=== PATIENT | female | born 2000 | race Caucasian/White ===

== ENCOUNTER 2023-11-20 16:54 | Emergency (ER) | payer OTHER, SELFPAY ==
[2023-11-20 16:59] VITALS: BP 145/87; PULSE 80; RESP 20; TEMP 36.6; O2SAT 100; BMI 32.3
--- NOTE | 2023-11-20 17:17 | ED_ITS ---
HPI - Skin/Abscess/Foreign Bdy General Chief complaint: Skin/Abscess/Foreign Body Stated complaint: RASH Time Seen by Provider: 11/20/23 16:59 Source: patient Mode of arrival: walk-in Limitations: no limitations History of Present Illness HPI narrative: Patient is a 23-year-old female who presents to the emergency department for a 2-week history of rash. She states she has noticed 2 separate areas to the scalp, above the right eyebrow, right denominational and above the right corner of the mouth. She states initially these lesions have drained pus/fluid and are now scabbed over, she states the lesion above the lip is resolving. She is not concerned for . No fevers or vomiting. She states her mother looked it up and told her it might be staph and she figured she should be on antibiotics. Related Data Previous Rx's Medication Instructions Recorded cephalexin 500 mg capsule 500 mg PO Q8H 7 days #21 caps 11/20/23 mupirocin 2 % topical ointment 1 applic topical BID #15 grams 11/20/23 sulfamethoxazole 800 1 tab PO BID 7 days #14 tabs 11/20/23 mg-trimethoprim 160 mg tablet (Bactrim DS) Allergies Allergy/AdvReac Type Severity Reaction Status Date / Time No Known Drug Allergies Allergy Verified 11/20/23 16:59 Review of Systems ROS Constitutional Denies: fever or chills Ears, nose, mouth, and throat Denies: throat pain or nasal congestion Cardiovascular Denies: chest pain Respiratory Denies: shortness of breath Gastrointestinal Denies: nausea or vomiting Integumentary/Breast Reports: rash Neurological Denies: headache Endocrine Denies: excessive urination Hematologic/Lymphatic Denies: easy bruising PFSH PFSH Social History Smoking status: Never smoker Exam Narrative Exam Narrative: Gen.: Awake, alert, in no distress Head: Normocephalic, atraumatic ENT: Moist mucous membranes Respiratory: No respiratory distress Extremities: Moves extremities equally Psych: Normal mood and affect Neuro: No focal neuro deficit Skin: Warm, dry, intact; 2 cm flat, scabbed, erythematous lesion above the right eyebrow with serous drainage centrally. Resolving erythematous lesion above the right lip. No crusting or drainage. 2 scabbed, crusted lesions in the scalp. Constitutional Vital Signs, click to edit/add: Last Vital Signs Temp 98 F 11/20/23 16:59 Pulse 80 11/20/23 16:59 Resp 20 11/20/23 16:59 BP 145/87 H 11/20/23 16:59 Pulse Ox 100 11/20/23 16:59 O2 Del Method Room Air 11/20/23 16:59 Course Vital Signs Vital signs: Vital Signs Temperature 98 F 11/20/23 16:59 Pulse Rate 80 11/20/23 16:59 Respiratory Rate 20 11/20/23 16:59 Blood Pressure 145/87 H 11/20/23 16:59 Pulse Oximetry 100 11/20/23 16:59 Oxygen Delivery Method Room Air 11/20/23 16:59 Temperature 98 F 11/20/23 16:59 Pulse Rate 80 11/20/23 16:59 Respiratory Rate 20 11/20/23 16:59 Blood Pressure 145/87 H 11/20/23 16:59 Pulse Oximetry 100 11/20/23 16:59 Oxygen Delivery Method Room Air 11/20/23 16:59 MDM - Skin/Abscess/Foreign Bdy MDM Narrative Medical decision making narrative: Exam is consistent with impetigo, patient placed on topical antibiotics, she is given Bactrim and Keflex for antibiotic coverage Medical Records Attestation: I reviewed the patient's medical records. Discharge Plan Discharge Chief Complaint: Skin/Abscess/Foreign Body Clinical Impression: Impetigo Patient Disposition: Home, Self-Care Time of Disposition Decision: 17:15 Condition: Good Prescriptions / Home Meds: New sulfamethoxazole-trimethoprim [Bactrim DS] 800-160 mg tablet 1 tab PO BID 7 Days Qty: 14 0RF cephalexin 500 mg capsule 500 mg PO Q8H 7 Days Qty: 21 0RF mupirocin 2 % ointment 1 applic topical BID Qty: 15 0RF Instructions: Impetigo (ED) Stand Alone Forms: Portal Instructions Referrals: ALEKSANDR SALAS APRN [Physician] - 1 week
== END 2023-11-20 17:35 | disposition home or self-care (01) ==
PROVIDERS: Emergency Provider Emergency Medicine
DX: L01.00 Impetigo, unspecified (principal)
CPT/HCPCS: 99283

== ENCOUNTER 2024-04-08 20:05 | Emergency (ER) | payer OTHER, SELFPAY ==
--- OUTSIDE RECORDS SUMMARY | 2024-04-08 20:13 | XMS_ITS | CCD ---
Author Organization [facility] Care Team Providers Care Medical Delivery Driver Name Role Phone Pcp, None Primary Care Provider UnavailBRENDAN Lerma Attending Unavailable BRENDAN PEREZ Referring Unavailable PCP, NONE Primary Care Unavailable BELLE OCHOA Attending Unavailable BELLE OCHOA Referring Unavailable PCP, NONE Primary Care Unavailable PCP, NONE Primary Care Unavailable CONCHITA CARRION Attending Unavailable CONCHITA CARRION Admitting Unavailable BELLE OCHOA Attending Unavailable BELLE OCHOA Referring Unavailable PCP, NONE Primary Care Unavailable BELLE OCHOA Admitting Unavailable Medications Current Medications Medication Drug Class(es) Dates Sig (Normalized) Sig (Original) acetaminophen 500 mg oral tablet (7 sources) Start: 03-24-2021 take 2 tablets by mouth every six hours as needed acetaminophen (TYLENOL) 500 MG tablet Take 2 tablets by mouth every 6 hours as needed. 30 tablet 0 03/24/2021 Active Start: 03-22-2021 acetaminophen (TYLENOL) tablet 1,000 mg acetaminophen 325 mg / HYDROcodone bitartrate 5 mg oral tablet (2 sources) Opioid Agonist Start: 08-14-2020 take 1 tablet by mouth every six hours as needed for pain hydrocodone-acetaminophen (NORCO) 5-325 MG Indications: Pain, dental , Jaw swelling Take 1 tablet by mouth every 6 hours as needed for Pain. 8 tablet 0 08/14/2020 Active Start: 08-14-2020 End: 08-14-2020 hydrocodone-acetaminophen (N ORCO) 5-325 MG home pack 1 packet aluminum hydroxide 40 mg/ml / magnesium hydroxide 40 mg/ml oral suspension (1 source) Start: 03-22-2021 aluminum-magnesium hydroxide 200-200 MG/5ML suspension 30 mL benzocaine 200 mg/ml / menthol 5 mg/ml topical spray (1 source) Standardized Chemical Allergen Start: 03-22-2021 benzocaine-menthol (DERMOPLAST) 20-0.5 % topical spray brompheniramine maleate 0.4 mg/ml / dextromethorphan hydrobromide 2 mg/ml / pseudoephedrine hydrochloride 6 mg/ml oral solution (3 sources) alpha-Adrenergic Agonist, Uncompetitive W-dozvkk-W-aspart ate Receptor Antagonist, Sigma-1 Agonist Start: 02-04-2022 take 10 mL by mouth four times daily as needed for cough pseudoephedrine-bromp heniramine-DM (BROMFED DM) 30-2-10 MG/5ML syrup Indications: URI with cough and congestion Take 10 mLs by mouth 4 times daily as needed for Cough or Congestion. 120 mL 0 02/04/2022 Active diphenhydrAMINE hydrochloride 25 mg oral capsule (1 source) Histamine-1 Receptor Antagonist Start: 03-22-2021 diphenhydrAMINE (BENADRYL) capsule 25 mg docusate sodium 100 mg oral capsule (8 sources) Start: 03-22-2021 take 1 capsule by mouth twice daily as needed for constipation docusate sodium 100 MG CAPS Take 100 mg by mouth 2 times daily as needed for Constipation. 30 capsule 1 03/24/2021 Active famotidine 20 mg oral tablet (1 source) Histamine-2 Receptor Antagonist Start: 03-22-2021 famotidine (PEPCID) tablet 20 mg hydrocortisone 25 mg/ml topical cream (1 source) Corticosteroid Start: 03-22-2021 Hydrocortisone (Perianal) 2.5 % rectal cream hydrocortisone acetate 25 mg/ml / pramoxine hydrochloride 10 mg/ml rectal cream (1 source) Corticosteroid Start: 03-22-2021 Hydrocort-Pramoxine (Perianal) (ANALPRAM-HC) rectal cream ibuprofen 800 mg oral tablet (7 sources) Nonsteroidal Anti-inflammatory Drug Start: 03-22-2021 take 1 tablet by mouth every eight hours as needed ibuprofen (ADVIL,MOTRIN) 800 MG tablet Take 1 tablet by mouth every 8 hours as needed. 30 tablet 1 03/24/2021 Active lanolin 0.5 mg/mg topical ointment (1 source) Start: 03-22-2021 Lanolin Hydrous ointment magnesium hydroxide 240 mg/ml oral suspension (1 source) Start: 03-22-2021 Magnesium Hydroxide (MOM) suspension (CONC) 10 mL naproxen 500 mg oral tablet (2 sources) Nonsteroidal Anti-inflammatory Drug Start: 08-14-2020 take 1 tablet by mouth twice daily as needed for pain naproxen (NAPROSYN) 500 MG tablet Take 1 tablet by mouth 2 times daily as needed for Pain. 15 tablet 0 08/14/2020 Active Start: 08-14-2020 End: 08-14-2020 naproxen (NAPROSYN) tablet 5 00 mg 2 ml ondansetron 2 mg/ml injection (9 sources) Serotonin-3 Receptor Antagonist Start: 03-22-2021 ondansetron hcl (ZOFRAN) injection 4 mg Start: 12-21-2020 End: 03-24-2021 Ondansetron (ZOFRAN-ODT) dis integrating tablet 4 mg oxyCODONE hydrochloride 5 mg oral tablet (1 source) Opioid Agonist Start: 03-22-2021 oxyCODONE (ROXICODONE) immediate release tablet 5-10 mg oxytocin 20 units in 1000mL LR - post (1 source) Start: 03-22-2021 oxytocin 20 un its in 1000mL LR - post penicillin v potassium 500 mg oral tablet (2 sources) Start: 08-14-2020 take 1 tablet by mouth four times daily penicillin v potassium (VEETID) 500 MG tablet Take 1 tablet by mouth 4 times daily. 39 tablet 0 08/14/2020 Active Start: 08-14-2020 End: 08-14-2020 penicillin v potassium (VEET ID) tablet 500 mg multivitamin 27-0.8 MG tablet 1 tablet (1 source) Start: 03-22-2021 multivitamin 27-0.8 MG tablet 1 tablet Vit-Fe Fumarate-FA ( VITAMIN PLUS LOW IRON) 27-1 MG TABS (14 sources) Start: 11-19-2020 take 1 tablet by mouth once daily Vit-Fe Fumarate-FA ( VITAMIN PLUS LOW IRON) 27-1 MG TABS Take 1 tablet by mouth daily. 30 tablet 0 11/19/2020 Active simethicone 80 mg chewable tablet (1 source) Start: 03-22-2021 simethicone (MYLICON) chewable tablet 80 mg zolpidem tartrate 5 mg oral tablet (1 source) gamma-Aminobuty yecenia Acid-ergic Agonist Start: 03-22-2021 zolpidem (AMBIEN) tablet 5 mg Completed/Discontinued Medications Medication Drug Class(es) Dates Sig (Normalized) Sig (Original) calcium chloride 0.0014 meq/ml / potassium chloride 0.004 meq/ml / sodium chloride 0.103 meq/ml / sodium lactate 0.028 meq/ml injectable solution (3 sources) Start: 03-22-2021 End: 03-22-2021 lactated ringers bolus solution 1,000 mL Problems Active Problems Problem Classification Problem Date Documented Da te Episodic/Chronic Disorders of teeth and jaw (1 source) Toothache; Translations: [Pain, dental] Episodic Nonmalignant breast conditions (1 source) Mastodynia; Translations: [Mastodynia] Episodic Other circulatory disease (1 source) Elevated blood pressure; Translations: [Elevated blood pressure reading] Episodic Other skin disorders (1 source) Facial swelling ; Translations: [Jaw swelling] Episodic Other upper respiratory infections (3 sources) Upper respiratory infection; Translations: [Acute upper respiratory infection, unspecified] Onset: 02-07-2023 Episodic Residual codes; unclassified (1 source) H/O: Disorder; Translations: [History of low potassium] Episodic Residual codes; unclassified (2 sources) Gestation period, 27 weeks; Translations: [27 weeks gestation of ] Episodic Residual codes; unclassified (1 source) Gestation period, 36 weeks; Translations: [36 weeks gestation of ] Episodic Substance-related disorders (1 source) Nicotine dependence, other tobacco product, uncomplicated; Translations: [Nicotine dependence, other tobacco product, uncomplicated] Onset: 02-07-2023 Chronic Past or Other Problems Problem Classification Problem Date Documented Date Episodic/Chronic Immunizations and screening for infectious disease (1 source) Encounter for screening for infections with a predominantly sexual mode of transmission; Translations: [Encounter for screening for infections with a predominantly sexual mode of transmission] Onset: 06-14-2022 Episodic Other complications of (17 sources) Late entry into care; Translations: [Supervision of with insufficient care, second trimester] Onset: 11-26-2020 Resolved: 05-12-2021 11-26-2020 Episodic Other complications of (15 sources) Chlamydia trachomatis infection in ; Translations: [Other infections with a predominantly sexual mode of transmission complicating , second trimester] Onset: 12-21-2020 12-21-2020 Episodic Other and delivery including normal (20 sources) Normal ; Translations: [Encounter for supervision of normal , unspecified, unspecified trimester] Onset: 11-26-2020 Resolved: 05-12-2021 11-26-2020 Episodic Results Test Name Value Interpretation Reference Range Facil ity STREP A MOLECULARon 02-08-20 23 STREP A MOLECULAR Negative Normal Negative [facility] Comment on above: Performed By: #### [id number] #### [place] [address] [place] Strep AOrdered By: Khloe Kaminski on 02-06-2023 Streptococcus.beta-hemo lytic Org specific cx Ql (Unsp spec) Negative Negative [facility] Streptococcus.beta-hemolytic Org specific cx Ql (Unsp spec)Ordered By: Khloe Kaminski on 02-06-2023 Interpretation and review of laboratory results Normal [facility] GCon 06-17-2022 CHLAMYDIA AMPLIFIED PROBE Negative Normal Negative [facility] Comment on above: Performed By: #### [id number] #### [place] [address] GC AMPLIFIED PROBE Negative Normal Negative [facility] Comment on above: Performed By: #### [id number] #### [place] [address] GCon 06-16-2022 CHLAMYDIA SOURCE ThinPrep Normal [facility] Comment on above: Performed By: #### [id number] #### [place] [address] GC SOURCE ThinPrep Normal [facility] Comment on above: Performed By: #### [id number] #### [place] [address] US Breast - left limitedon 0 10-15-2021 Normal examination. RECOMMENDATION: Clinical Follow-Up BI-RADS: ACR BI-RADS 1: Negative Dimas Calderon MD - 10/15/2021 CLINICAL HISTORY: Patient is a 21-year-old woman referred for sonographic evaluation of new onset focal left breast pain. History of breast cancer in her mother maternal aunt, ages unspecified. TECHNIQUE: Targeted left breast ultrasound. COMPARISON: None FINDINGS: Targeted left breast ultrasound performed at 3:00, 10 cm from the nipple at the site of focal pain. No suspicious solid or cystic mass or distortion is seen. No findings identified to account for the patient's pain. Normal examination. IMPRESSION: Normal examination. RECOMMENDATION: Clinical Follow-Up BI-RADS: ACR BI-RADS 1: Negative [facility] Radiology Study observation (narrative) [facility] US Breast - left limitedOrde red By: Dimas Patel on 10-15-2021 [facility] Work Phone: CBC without differentialOrde red By: Lexi Lewis on 03-23-2021 Erythrocyte distribution width (RBC) [Ratio] 13.9 % 11.5 - 14.5 % [facility] Hematocrit (Bld) [Volume fraction] 28.6 % Low 33.6 - 46.8 % [facility] Hemoglobin (Bld) [Mass/Vol] 9.1 g/dL Low 11.7 - 15.8 g/dL [facility] Interpretation and review of laboratory results Abnormal [facility] MCH (RBC) [Entitic mass] 28.4 pg 27.5 - 32.3 pg [facility] MCHC (RBC) [Mass/Vol] 31.8 g/dL 30.7 - 35.5 g/dl [facility] MCV (RBC) [Entitic vol] 89.4 fL 80.2 - 99.0 fL [facility] Platelets (Bld) [#/Vol] 196.0 10*3/uL [facility] RBC (Bld) [#/Vol] 3.20 10*6/uL Low [facility] WBC LM Ql (Sput) 11.3 High [facility] BUPRENORPHINE SCRN, UR, REFL EX QUANTOrdered By: Lexi Lewis on 03-22-2021 Buprenorphine Screen, UR Not detected CUTOFF <10 ng/mL [facility] Tox Message see below [facility] Comment on above: Notes: 1. SCREENING RESULTS SHOULD BE CONSIDERED PRESUMPTIVE UNLESS THE PRESENCE OF THE ANALYTE HAS BEEN CONFIRMED BY A REFERENCE LAB. 2. ALL DRUG GROUPS ARE ANALYZED ON URINE. [facility] CBCOrdered By: Lexi ambriz on 03-22-2021 Erythrocyte distribution width (RBC) [Ratio] 13.4 % 11.5 - 14.5 % [facility] Hematocrit (Bld) [Volume fraction] 35.4 % 33.6 - 46.8 % [facility] Hemoglobin (Bld) [Mass/Vol] 11.9 g/dL 11.7 - 15.8 g/dL [facility] Interpretation and review of laboratory results Abnormal [facility] MCH (RBC) [Entitic mass] 28.3 pg 27.5 - 32.3 pg [facility] MCHC (RBC) [Mass/Vol] 33.6 g/dL 30.7 - 35.5 g/dl [facility] MCV (RBC) [Entitic vol] 84.1 fL 80.2 - 99.0 fL [facility] Platelets (Bld) [#/Vol] 246.0 10*3/uL [facility] RBC (Bld) [#/Vol] 4.21 10*6/uL [facility] WBC LM Ql (Sput) 11.9 High [facility] Syphilis Treponema AntibodyO rdered By: Lexi Lewis on 03-22-2021 Syphilis Treponema Antibody Non-Reactive Nonreactive [facility] Toxicology screen, urineOrde red By: Lexi Lewis on 03-22-2021 Amphetamines Screen method >1000 ng/mL Ql (U) Not detected CUTOFF <1000 ng/mL [facility] Barbiturates Screen method >200 ng/mL Ql (U) Not detected CUTOFF <200 ng/mL [facility] Benzodiazepines Ql (U) Not detected CUTOF F <200 ng/mL [facility] Benzoylecgonine Screen (U) [Mass/Vol] Not detected CUTOFF <300 ng/mL [facility] Cannabinoids Screen method >50 ng/mL Ql (U) Not detected CUTOFF <50 ng/mL [facility] Fentanyl Not detected CUTOFF 1.0 ng/mL [facility] Opiates Screen (U) [Mass/Vol] Not detected CUTOFF <300 ng/mL [facility] Phencyclidine (U) [Mass/Vol] Not detected CUTOFF <25 ng/mL [facility] Tox Message see below [facility] Comment on above: Notes: 1. SCREENING RESULTS SHOULD BE CONSIDERED PRESUMPTIVE UNLESS THE PRESENCE OF THE ANALYTE HAS BEEN CONFIRMED BY A REFERENCE LAB. 2. ALL DRUG GROUPS ARE ANALYZED ON URINE. [facility] Type and ScreenOrdered By: Cristina Lewis on 03-22-2021 ABO and Rh group Nom (Bld) Blood group O Rh(D) positive [facility] Blood group antibody screen.cells I+II+III Ql Negative [facility] Fern test, vaginal fluidOrde red By: Stacy Alonso on 03-02-2021 Fern Test NONE SEEN NONE SEEN [facility] CBCon 01-05-2021 Erythrocyte distribution width (RBC) [Ratio] 13.4 % 11.5 - 14.5 % [facility] Hematocrit (Bld) [Volume fraction] 34.0 % 33.6 - 46.8 % [facility] Hemoglobin (Bld) [Mass/Vol] 11.2 g/dL Low 11.7 - 15.8 g/dL [facility] Interpretation and review of laboratory results Abnormal [facility] MCH (RBC) [Entitic mass] 29.2 pg 27.5 - 32.3 pg [facility] MCHC (RBC) [Mass/Vol] 32.9 g/dL 30.7 - 35.5 g/dl [facility] MCV (RBC) [Entitic vol] 88.8 fL 80.2 - 99 fL [facility] Platelets (Bld) [#/Vol] 244.0 10*3/uL [facility] RBC (Bld) [#/Vol] 3.83 10*6/uL [facility] WBC LM Ql (Sput) 10.9 High [facility] Glucose tolerance, 1 houron 01-05-2021 Glucose 1 Hr post 50 g glucose PO [Mass/Vol] 83 mg/dL [facility] Comment on above: REFERENCE-GLUCOSE 1 HR WITH DEXTROSE Values >140 mg/dL constitute a positive screen [facility] Syphilis Treponema Antibody (RPR)on 01-05-2021 Syphilis Treponema Antibody Nonreactive Nonreactive [facility] Comprehensive metabolic pane l aka [facility] 11-26-2020 Albumin [Mass/Vol] 3.7 g/dL 3.5 - 5 g/dL [facility] Alk Phos 78 U/L 24 - 126 U/L [facility] ALT [Catalytic activity/Vol] 12 U/L 4 - 35 U/L [facility] AST [Catalytic activity/Vol] 19 U/L 3 - 47 U/L [facility] Bilirubin [Mass/Vol] 0.6 mg/dL 0.2 - 1.6 mg/dL [facility] Calcium [Mass/Vol] 9.5 mg/dL 8.4 - 10. 4 mg/dL [facility] Chloride [Moles/Vol] 105 mmol/L 96 - 109 mmol/L [facility] CO2 [Moles/Vol] 21 mmol/L Low 22 - 30 mmol/L [facility] Comprehensive metabolic 2000 panel 0.46 mg/dL Low 0.52 - 1.04 mg/dL [facility] Glucose [Mass/Vol] 87 mg/dL 65 - 100 mg/dL [facility] Interpretation and review of laboratory results Abnormal [facility] Potassium [Moles/Vol] 4.2 mmol/L 3.6 - 5.1 mmol/L [facility] Protein [Mass/Vol] 6.8 g/dL 6.3 - 8.2 g/dL [facility] Sodium [Moles/Vol] 133 mmol/L Low 135 - 147 mmol/L [facility] Urea nitrogen [Mass/Vol] 7 mg/dL Low 8 - 20 mg/dL [facility] GLOMERULAR FILTRATION RATEon 11-26-2020 GFR/1.73 sq M.predicted MDRD (S/P/Bld) [Vol rate/Area] mL/min/{1.73_m2} [facility] Comment on above: To estimate the GFR for Americans, multiply the result provided by 1.21. Population mean GFR = 116 ml/min/1.73 sq.m. for ages 18-29 yrs. The MDRD is validated in individuals 18-70 years of age. It is less accurate in patients with extremes of muscle mass, restriction of dietary protein, ingestion of creatine, extra-renal metabolism of creatinine, or treatment with medications that affect renal tubular creatinine secretion. GFR Categories in Chronic Kidney Disease (CKD) Category: GFR(mL/min/1.73m^2) Interpretation: G1* 90 or greater Normal or high G2* 60-89 Mild decrease G3a 45-59 Mild to moderate decrease G3b 30-44 Moderate to severe decrease G4 15-29 Severe decrease G5 14 or less Kidney failure *G1&G2: In the absence of evidence of kidney damage, neither GFR category G1 nor G2 fulfill the criteria for CKD Kidney Int Suppl.2013;3:1-150 Hemoglobin A1con 11-26-2020 HbA1c (Bld) [Mass fraction] 4.3 % 0 - 6 % [facility] Comment on above: Reference Interval f or %A1c %A1c (NGSP) Interpretation <6.0% Non-Diabetic Range >6.5% Action Suggested . Hepatitis C antibodyon 11-26 HCV Ab Qn (S) Nonreactive Nonreactive [facility] LDH SERUMon 11-26-2020 LDH Pyruvate to lactate reaction [Catalytic activity/Vol] 513 U/L 308 - 626 U/L [facility] Otheron 11-26-2020 [facility] Type & Screen (must order with either panel)on 11-26-2020 ABO and Rh group Nom (Bld) O POS [facility] Blood group antibody screen.cells I+II+III Ql Negative [facility] Protein / creatinine ratio, urineon 11-26-2020 Protein (U) [Mass/Vol] 10 mg/dL 0 - 12 mg/dL [facility] Protein/Creatinine (U) [Mass ratio] 0.1 [facility] Ur Cre-Random 118.20 mg/dL NO NORMALS [facility] Uric acidon 11-26-2020 Urate [Mass/Vol] 3.0 mg/dL 2 - 7 mg/dL [facility] Vital Signs Date Time Vital Sign Value Performing Clinician Facility 02-07-2023 04:32-0400 Diastolic blood pressure 65 mm[Hg] Sazze DO Work Phone: [facility] 02-07-2023 04:32-0400 Heart rate 69 /min Sazze DO Work Phone: [facility] 02-07-2023 04:32-0400 Respiratory rate 18 /min Conchita Bomsta DO Work Phone: [facility] 02-07-2023 04:32-0400 SaO2% (BldA) [Mass fraction] 99 % Conchita Brownta Work Phone: [facility] 02-07-2023 04:32-0400 Systolic blood pressure 114 mm[Hg] Conchita Brownta DO Work Phone: [facility] 02-06-2023 23:14-0400 Body height 167.6 cm Conchita Brownta Work Phone: [facility] 02-06-2023 23:14-0400 Body mass index (BMI) [Ratio] 34.7 kg/m2 Conchita Brownta Work Phone: [facility] 02-06-2023 23:14-0400 Body temperature 98.91 [degF] Conchita Brownta Work Phone: [facility] 02-06-2023 23:14-0400 Body weight 97.52 kg Conchita Carrion DO Work Phone: [facility] 03-24-2021 08:00-0400 Body temperature 98.29 [degF] Lexi Lewis MD Work Phone: [facility] 03-24-2021 08:00-0400 Diastolic blood pressure 55 mm[Hg] Lexi Lewis MD Work Phone: [facility] 03-24-2021 08:00-0400 Heart rate 76 /min Lexi Lewis MD Work Phone: [facility] 03-24-2021 08:00-0400 Respiratory rate 16 /min Lexi Lewis MD Work Phone: [facility] 03-24-2021 08:00-0400 Systolic blood pressure 115 mm[Hg] Lexi Lewis MD Work Phone: [facility] 03-24-2021 04:00-0400 SaO2% (BldA) [Mass fraction] 97 % Lexi Lewis MD Work Phone: [facility] 03-21-2021 20:37-0400 Body height 167.6 cm Lexi Lewis MD Work Phone: [facility] 03-21-2021 20:37-0400 Body mass index (BMI) [Ratio] 39.71 kg/m2 Lexi Lewis MD Work Phone: [facility] 03-21-2021 20:37-0400 Body weight 111.58 kg Lexi Lewis MD Work Phone: [facility] 03-06-2021 21:50-0400 Diastolic blood pressure 57 mm[Hg] Stacy Alonso MD Work Phone: [facility] 03-06-2021 21:50-0400 Heart rate 77 /min Stacy Alonso MD Work Phone: [facility] 03-06-2021 21:50-0400 Systolic blood pressure 120 mm[Hg] Stacy Alonso MD Work Phone: [facility] 03-06-2021 20:50-0400 Body height 167.6 cm Stacy Alonso MD Work Phone: [facility] 03-06-2021 20:50-0400 Body mass index (BMI) [Ratio] 38.58 kg/m2 Stacy Alonso MD Work Phone: [phone] [address] 03-06-2021 20:50-0400 Body weight 108.41 kg Stacy Alonso MD Work Phone: [facility] 03-06-2021 20:50-0400 Respiratory rate 20 /min Stacy Alonso MD Work Phone: [facility] 03-06-2021 20:48-0400 Body temperature 98.01 [degF] Stacy Alonso MD Work Phone: [facility] 03-02-2021 02:04-0400 Diastolic blood pressure 69 mm[Hg] Stacy Alonso MD Work Phone: [facility] 03-02-2021 02:04-0400 Heart rate 88 /min Stacy Alonso MD Work Phone: [facility] 03-02-2021 02:04-0400 Systolic blood pressure 131 mm[Hg] Stacy Alonso MD Work Phone: [facility] 03-02-2021 01:37-0400 Body height 167.6 cm Stacy Alonso MD Work Phone: [facility] 03-02-2021 01:37-0400 Body mass index (BMI) [Ratio] 38.41 kg/m2 Stacy Alonso MD Work Phone: [phone] [address] 03-02-2021 01:37-0400 Body temperature 98.91 [degF] Stacy Alonso MD Work Phone: [phone] [address] 03-02-2021 01:37-0400 Body weight 107.96 kg Stacy Alonso MD Work Phone: [facility] 03-02-2021 01:37-0400 Respiratory rate 20 /min Stacy Alonso MD Work Phone: [facility] 02-03-2021 21:58-0400 Diastolic blood pressure 77 mm[Hg] Stacy Alonso MD Work Phone: [phone] [address] 02-03-2021 21:58-0400 Heart rate 91 /min Stacy Alonso MD Work Phone: [facility] 02-03-2021 21:58-0400 Respiratory rate 18 /min Stacy Alonso MD Work Phone: [facility] 02-03-2021 21:58-0400 Systolic blood pressure 128 mm[Hg] Stacy Alonso MD Work Phone: [facility] 08-14-2020 09:19-0500 Body Temperature 98.49 [degF] [facility] 08-14-2020 06:50-0500 BMI (Body Mass Index) 32.28 kg/m2 Aliya [facility] 08-14-2020 06:50-0500 Body weight 90.72 kg Aliya [facility] 08-14-2020 06:50-0500 BP Diastolic 74 mm[Hg] [facility] 08-14-2020 06:50-0500 BP Systolic 135 mm[Hg] [facility] 08-14-2020 06:50-0500 Height 167.6 cm Aliya [facility] 08-14-2020 06:50-0500 Pulse (Heart Rate) 82 /min [facility] 08-14-2020 06:50-0500 Pulse Oximetry 99 % Aliya Cao [facility] 08-14-2020 06:50-0500 Respiratory Rate 18 /min Aliya Cao [facility] System Encounters Encounter Date Encounter Type Care Provider Facility Start: 02-07-2023 End: 02-07-2023 Emergency department patient visit GLORIA [facility] Start: 02-07-2023 End: 02-07-2023 Emergency department patient visit Conchita Carrion DO Work Phone: [facility] Comment on above: Sore throat (Primary Dx) Start: 06-20-2022 ambulatory BRENDAN PEREZ [facility] Start: 06-14-2022 End: 06-14-2022 ambulatory BELLE [facility] Start: 06-14-2022 Encounter for gynecological examination (general) (routine) without abnormal findings [facility] Start: 06-14-2022 End: 06-15-2022 ambulatory BELLE [facility] Start: 02-06-2022 End: 02-06-2022 Subsequent hospital visit by physician Paulo Upton DO Work Phone: [facility] Start: 02-04-2022 End: 02-04-2022 Subsequent hospital visit by physician Kym Gutierrez APRN [employer] Work Phone: [facility] Comment on above: URI with cough and c ongestion Start: 10-15-2021 End: 10-15-2021 Subsequent hospital visit by physician Marianna Abbasi APRN, CNP Work Phone: [facility] Comment on above: Breast pain, left Start: 06-08-2021 End: 06-08-2021 Subsequent hospital visit by physician Job Fitzgerald MD Work Phone: [facility] Start: 03-21-2021 End: 03-24-2021 Evaluation and management of inpatient Lexi Lewis MD Work Phone: [facility] ([facility]) Comment on above: Encounter for induct ion of labor (Primary Dx) Start: 03-06-2021 End: 03-06-2021 Subsequent hospital visit by physician Stacy Alonso MD Work Phone: [facility] (2 [place]) Start: 03-02-2021 End: 03-02-2021 Subsequent hospital visit by physician Stacy Alonso MD Work Phone: [facility] (2 [place]) Start: 02-24-2021 End: 02-24-2021 Subsequent hospital visit by physician Nicole Rodarte DO Work Phone: [facility] Comment on above: 36 weeks gestation o f ; Chlamydia trachomatis infection in mother during second trimester of Start: 02-03-2021 End: 02-03-2021 Subsequent hospital visit by physician Stacy Alonso MD Work Phone: [facility] ([address] [place]) Start: 01-05-2021 End: 01-05-2021 Subsequent hospital visit by physician Nicole Rodarte Work Phone: [facility] Comment on above: 27 weeks gestation o f Start: 12-21-2020 End: 12-21-2020 Subsequent hospital visit by physician Nicole Rodarte Work Phone: [facility] Comment on above: 27 weeks gestation o f ; Chlamydia trachomatis infection in mother during second trimester of Start: 11-26-2020 End: 11-26-2020 Subsequent hospital visit by physician Nicole Rodarte Work Phone: [facility] Comment on above: Late care a ffecting in second trimester Start: 11-26-2020 End: 11-26-2020 Subsequent hospital visit by physician Nicole Rodarte Work Phone: [facility] Comment on above: Late care a ffecting in second trimester; History of low potassium; Elevated blood pressure reading Start: 08-14-2020 End: 08-14-2020 Emergency department patient visit Aliya Cao Work Phone: [facility] Comment on above: Pain, dental (Primar y Dx); Jaw swelling Procedures Date Procedure Procedure Detail Performing Clinician Start: 02-06-2023 Iadna streptococcus group a amplified probe tq Conchita Armida [employer] Work Phone: Start: 06-14-2022 Microscopic observat ion [Identifier] in Cervix by Cyto stain Conchita Sentiment Work Phone: Start: 10-15-2021 Us breast uni real t duane with image limited Marianna Abbasi APRN [employer] Work Phone: Start: 03-23-2021 Blood count complete automated Lexi Lewis MD Work Phone: Start: 03-22-2021 BUPRENORPHINE SCRN, UR, REFLEX QUANT Lexi Lewis MD Work Phone: Start: 03-22-2021 Drug tst prsmv instr mnt chem analyzers pr date Lexi Lewis MD Work Phone: Start: 03-22-2021 Antibody treponema pallidum Lexi Lewis MD Work Phone: Start: 03-22-2021 Blood count complete automated Lexi Lewis MD Work Phone: Start: 03-22-2021 TYPE AND SCREEN Nunu Lewis MD Work Phone: Start: 03-02-2021 Smr prim src wet anthony nt nfct agt Stacy Alonso MD Work Phone: Start: 01-05-2021 Antibody treponema pallidum Nicole Rodarte Work Phone: Start: 01-05-2021 Glucose post glucose dose Nicole Rodarte Work Phone: Start: 01-05-2021 Blood count complete automated Nicole Rodarte Work Phone: Start: 11-26-2020 Assay of blood/uric acid Nicole Rodarte Work Phone: Start: 11-26-2020 Comprehensive metabo lic panel Nicole Rodarte Work Phone: Start: 11-26-2020 GLOMERULAR FILTRATION RATE Nicole Rodarte Work Phone: Start: 11-26-2020 Hemoglobin A1c/Hemoglobin.total in Blood Nicole Rodarte Work Phone: Start: 11-26-2020 Hepatitis c antibody Ca lljose Rodarte Work Phone: Start: 11-26-2020 Lactate dehydrogenase ldh Nicole Rodarte Work Phone: Start: 11-26-2020 PANEL WITH HIV Nicole Rodarte Work Phone: Start: 11-26-2020 T&S Nicole pedraza Work Phone: Start: 11-26-2020 PROTEIN / CREATININE RATIO, URINE Nicole Rodarte Work Phone: Plan of Treatment Date Care Activity Detail Author Start: 03-04-2031 Administration of diphtheria + tetanus + acellular pertussis vaccine DTAP/TDAP/TD VACCINE (2 - Td or Tdap) [facility] Start: 03-04-2031 Diphtheria + pertuss is + tetanus vaccine (product) DTAP/TDAP/TD VACCINE (2 - Td or Tdap) [facility] Start: 06-14-2025 Screening for malign ant neoplasm of cervix PAP SMEAR [facility] Start: 06-20-2023 End: 06-20-2023 Patient encounter procedure 06/20/2023 Office Visit Obstetrics and Gynecology Belle Ochoa APRN [employer] [address] [id number] [facility]GYNECOLOG Y Start: 06-15-2023 ANNUAL WELLNESS VISIT ANNUAL WELLNES S VISIT [facility] Start: 06-14-2023 CHLAMYDIA SCREENING CHLAMYDIA SCREEN [facility] Start: 06-02-2023 Influenza vaccinatio n given INFLUENZA VACCINE (Season Ended) [facility] Start: 06-02-2022 Influenza vaccinatio n given INFLUENZA VACCINE (Season Ended) [facility] Start: 05-25-2022 End: 05-25-2022 Patient encounter procedure 05/25/2022 Office Visit Obstetrics and Gynecology Belle Ochoa APRN [employer] [address] [place] [address] [facility] OBSTETRICS/GYNECOLOG Y Start: 02-24-2022 CHLAMYDIA SCREENING CHLAMYDIA SCREEN [facility] Start: 12-21-2021 CHLAMYDIA SCREENING CHLAMYDIA SCREEN [facility] Start: 11-26-2021 CHLAMYDIA SCREENING CHLAMYDIA SCREEN [facility] Start: 10-18-2021 End: 10-18-2021 Patient encounter procedure 10/18/2021 Office Visit Dentistry Alka Adams DDS [address] [place] [address] [facility] Start: 2021 Screening for malign ant neoplasm of cervix PAP SMEAR [facility] Start: 07-22-2021 End: 07-22-2021 Patient encounter procedure 07/22/2021 Office Visit Dentistry Alka Adams DDS [address] [place] [address] [facility] Start: 06-02-2021 Influenza vaccinatio n given [facility] Start: 05-12-2021 End: 05-12-2021 ambulatory 05/12/2021 Visit Obstetrics and Gynecology Nicole Rodarte DO [address] [place] [address] [phone] [facility] OBSTETRICS/GYNECOLOG Y Start: 03-10-2021 End: 03-10-2021 Patient encounter procedure 03/10/2021 Routine Obstetrics and Gynecology Nicole Rodarte DO [address] [place] [address] [facility] Start: 03-04-2021 End: 03-04-2021 Patient encounter procedure 03/04/2021 Routine Obstetrics and Gynecology Nicole Rodarte DO [address] [place] [address] [facility] Start: 02-24-2021 End: 02-24-2021 Patient encounter procedure 02/24/2021 Routine Obstetrics and Gynecology Nicole Rodarte DO [address] [place] [address] [facility] Start: 02-11-2021 End: 02-11-2021 Patient encounter procedure 02/11/2021 Routine Obstetrics and Gynecology Nicole Rodarte DO [address] [place] [address] [facility] Start: 01-11-2021 End: 01-11-2021 Routine 01/11/2021 Routine Obstetrics and Gynecology Nicole Rodarte DO [address] [place] [address] [facility] Start: 12-24-2020 End: 12-24-2020 Routine 12/24/2020 Routine Obstetrics and Gynecology Nicole Rodarte DO [address] [place] [address] [facility] Start: 06-02-2020 Influenza vaccinatio n given INFLUENZA VACCINE (#1) [facility] Start: 2018 ANNUAL WELLNESS VISIT ANNUAL WELLNES S VISIT [facility] Start: 2016 CHLAMYDIA SCREENING CHLAMYDIA SCREEN ING [facility] Start: 2012 Adult depression screening assessment DEPRESSION SCREENING [facility] Start: 2012 Depression screening using PHQ-9 (Patient Health Questionnaire 9) score DEPRESSION SCREENING [facility] Start: 2011 Diphtheria + pertuss is + tetanus vaccine (product) DTAP/TDAP/TD VACCINE (1 - Tdap) [facility] Start: 2011 Human papilloma viru s vaccination given HPV VACCINES (GARDASIL) (1 - 2-dose series) [facility] Start: 2011 Vaccination for gabe n papillomavirus HPV VACCINES (GARDASIL) (1 - 2-dose series) [facility] Start: 2005 COVID-19 VACCINE (1) COVID-19 VACCIN E (1) [facility] Start: 02-24-2001 COVID-19 VACCINE (#1) COVID-19 VACCI NE (#1) [facility] End: 11-26-2020 Chlamydia trachomatis+Neisseria gonorrhoeae rRNA [Presence] in Cervix by Probe GC &Chlamydia Microbiology Routine Late care affecting in second trimester 1 Occurrences starting 11/26/2020 until 11/26/2020 [facility] Comment on above: 1 Occurrences starti ng 11/26/2020 until 11/26/2020 Chlamydia trachomatis+Neisseria gonorrhoeae rRNA [Presence] in Cervix by Probe [facility] End: 12-21-2020 Chlamydia trachomatis+Neisseria gonorrhoeae rRNA [Presence] in Cervix by Probe GC & CHLAMYDIA AMPLIFIED PROBE Microbiology Routine 27 weeks gestation of Chlamydia trachomatis infection in mother during second trimester of 1 Occurrences starting 12/21/2020 until 12/21/2020 [facility] Comment on above: 1 Occurrences starti ng 12/21/2020 until 12/21/2020 End: 02-24-2021 Chlamydia trachomatis+Neisseria gonorrhoeae rRNA [Presence] in Cervix by Probe GC & Chlamydia Amplified Probe Microbiology Routine 36 weeks gestation of Chlamydia trachomatis infection in mother during second trimester of 1 Occurrences starting 02/24/2021 until 02/24/2021 [facility] Comment on above: 1 Occurrences starti ng 02/24/2021 until 02/24/2021 End: 06-08-2021 COVID-19 (2019 NOVEL CORONAVIRUS) [facility] Work Phone: Comment on above: One Time for 1 Occur rences starting 06/08/2021 until 06/08/2021 End: 11-26-2020 Drug Screen Urine Extended Panel Drug Screen Urine Extended Panel Lab Routine Late care affecting in second trimester 1 Occurrences starting 11/26/2020 until 11/26/2020 [facility] Comment on above: 1 Occurrences starti ng 11/26/2020 until 11/26/2020 Drug Screen Urine Extended Panel Drug Screen Urine Extended Panel Lab Routine Late care affecting in second trimester 11/26/2020 3:23 PM EST [employer] nonstress test nonst ress test OB Routine Daily 0500 until discontinued starting 03/07/2021 [facility] Comment on above: Daily 0500 until dis continued starting 03/07/2021 End: 02-24-2021 Genital Group B Strep Screen Genital Group B Strep Screen Microbiology Routine 36 weeks gestation of 1 Occurrences starting 02/24/2021 until 02/24/2021 [facility] Comment on above: 1 Occurrences starti ng 02/24/2021 until 02/24/2021 [address] p Screen Genital Group B Strep Screen Microbiology Routine 36 weeks gestation of 02/24/2021 10:07 PM EDT [facility] End: 03-06-2021 POCT Nitrazine Test POCT Nitrazine Test OB Routine One Time for 1 Occurrences starting 03/06/2021 until 03/06/2021 [facility] [employer] Comment on above: One Time for 1 Occur rences starting 03/06/2021 until 03/06/2021 PANEL WITH HIV Panel with HIV Lab Routine Late care affecting in second trimester 11/26/2020 3:26 PM EST [facility] End: 02-04-2022 SARS-COV-2, [facility] [employer] Work Phone: Comment on above: One Time for 1 Occur rences starting 02/04/2022 until 02/04/2022 End: 02-06-2022 SARS-COV-2, [employer] Work Phone: Comment on above: One Time for 1 Occur rences starting 02/06/2022 until 02/06/2022 End: 11-26-2020 Urine culture and sensitivity Urine culture and sensitivity Microbiology Routine Late care affecting in second trimester 1 Occurrences starting 11/26/2020 until 11/26/2020 [facility] Comment on above: 1 Occurrences starti ng 11/26/2020 until 11/26/2020 Urine culture and sensitivity Urine culture and sensitivity Microbiology Routine Late care affecting in second trimester 11/26/2020 3:23 PM EST [facility] Immunizations Immunization Date Immunization Notes Care Provider Fa cility 03-04-2021 tetanus toxoid, reduced diphtheria toxoid, and acellular pertussis vaccine, adsorbed Stacy Alonso MD Work Phone: [facility] 08-26-2008 influenza virus vaccine, unspecified formulation Lexi Lewis MD Work Phone: [facility] NEGATED: Highlighted row has not occurred!03-22-2021 measles, mumps and rubella virus vaccine Lexi Lewis MD Work Phone: [facility] Comment on above: Deferred: - immune Payers Date Payer Category Payer Medicaid [id number] 2020 Medicaid [facility] [id number] 2020-Present [phone] [place] [id number] Medicaid [id number] 2000 Unknown [id number] 2000 Unknown [id number] 2000 Unknown [id number] 2000 Unknown [id number] Unknown [id number] Social History Date Type Detail Facility Start: 08-14-2020 End: 02-04-2022 Tobacco smoking status NHIS Former smoker [facility] Start: 08-14-2020 End: 06-14-2022 Tobacco use and exposure Never used [facility] Start: 2000 Sex Assigned At Not on file [facility] Start: 01-27-2023 End: 02-07-2023 Exposure to SARS-CoV-2 (event) Not sure [facility] End: 11-02-2020 History of tobacco use Current smoker [facility] Start: 11-26-2020 End: 02-04-2022 Alcohol intake Ex-drinker (finding) [facility] Start: 06-29-2020 [facility] Exposure to SARS-CoV -2 (event) Unable to assess [facility] Start: 2000 Sex Assigned At Female G [facility] Work Phone: Start: 09-21-2021 End: 06-14-2022 Tobacco smoking status NHIS Current every day smoker [facility] Work Phone: History of tobacco use Tobacco U se Types Packs/Day Years Used Date Smoking Tobacco: Every Day E-Cig/Vaping Smokeless Tobacco: Never [facility] Start: 02-07-2023 Alcohol intake Current drinke r of alcohol (finding) [facility] Start: 06-14-2022 Alcohol Comment occ [facility] Clinical Notes 02-03-2021 to 02-07-2023 Ava Lassiter RN - 02/07/2023 4:32 AM Ava Nguyen RN - 02/07/2023 4:32 AM Ava Nguyen RN - 02/07/2023 2:52 AM Ruthie Kevin RN - 02/06/2023 11:12 PM EDTInstructionsInstructions Note Date & Type Note Facility 02-07-2023 Emergency department Note Discharge instructions given to pt. Pt verbalized understanding. Skin p/w/d, RR easy and unlabored. ID band removed from arm, pt ambulates to lobby with ease. [facility] 02-07-2023 Emergency department Note Discharge instructions given to pt. Pt verbalized understanding. Skin p/w/d, RR easy and unlabored. ID band removed from arm, pt ambulates to lobby with ease. Pt ambulates to room with steady gait with c/o throat tightness starting at approx 2200 last evening. Pt denies any pain. Pt denies any fevers, body aches and chills. Pt sts she only coughs to help her throat feel better. Pt denies any injury to the same. Pt sts she was eating approx 15min prior to sensation. Denies any choking or difficulty with swallowing. RR easy and unlabored, airway patent, skin pwd, NAD noted. Pt arrives to the ED for throat tightness. Onset over last 1 1/2 hour. Denies any throat pain, just tightness. Denies any known for cause. Pt A & O. Resp reg. Speech is clear. No distress during triage. documented in this encounter [facility] 02-07-2023 Emergency department Note Pt ambulates to room with steady gait with c/o throat tightness starting at approx 2200 last evening. Pt denies any pain. Pt denies any fevers, body aches and chills. Pt sts she only coughs to help her throat feel better. Pt denies any injury to the same. Pt sts she was eating approx 15min prior to sensation. Denies any choking or difficulty with swallowing. RR easy and unlabored, airway patent, skin pwd, NAD noted. [facility] 02-06-2023 Emergency department Triage note Pt arrives to the ED for throat tightness. Onset over last 1 1/2 hour. Denies any throat pain, just tightness. Denies any known for cause. Pt A & O. Resp reg. Speech is clear. No distress during triage. [facility] 10-15-2021 Note CLINICAL HISTORY: Patient is a 21-year-old woman referred for sonographic evaluation of new onset focal left breast pain. History of breast cancer in her mother maternal aunt, ages unspecified. TECHNIQUE: Targeted left breast ultrasound. COMPARISON: None FINDINGS: Targeted left breast ultrasound performed at 3:00, 10 cm from the nipple at the site of focal pain. No suspicious solid or cystic mass or distortion is seen. No findings identified to account for the patient's pain. Normal examination. [facility] 03-24-2021 Miscellaneous Notes Dischg'd to home in stable cond with baby in arms per W/C. Her mother and S.O. with pt and transport personel Baby discharge papers Given and explained. Voiced understanding of same. Education completed. Discharge instructions given. Voiced understanding of same. [facility] ref made. Assessment completed. Denies any needs or pain meds at this time. Boning well with baby. Mother and S.O. in room and supportive. Mother/Baby Care Video in room to view per request. Discussed plan for discharge today. Voiced understanding of same. This note was copied from a baby's chart. IBCLC visit with mom. Maternal Grandma also present and asks lots of questions, states she just wants mom to be successful. Verbal support given. General education reviewed and reinforced. Norms of a breast fed discussed. Benefits of skin to skin positioning explained & behavior encouraged. Waking techniques explained & demonstrated.Feeding assistance given. Mom taught good positioning and how to latch using reverse pressure softening, hand expression and t-cup breast support. Latch appears deep. Active sucking and swallowing observed. Mom is able to relatch infant using techniques taught. Grandma is also concerned because infant has been silently regurging and she is worried about baby going home and mom not realizing she is choking. Mom and Grandma also feel it would be best for them to stay at the hospital overnight for more BF support. Nursery staff advised of same. All questions answered. Mom verbalizes understanding of info given & denies any further needs at this time. LC paging encouraged for help as needed. Education videos taken to room, Pt and family instructed to watch. IBCLC visits mother for initial assessment. Mother is found in room with and nurse, feeding at breast with assistance. LC assists with positioning and explains breast holds and mother returns demonstration once with encouragement. 's latch looks slightly shallow at times and clicking is heard. Explains reasons to help into deeper latches and explain how to assess 's breathing while feeding. Breast feeding book and log given and explained to mother. Hunger cues, proper latch, skin to skin positioning, frequency of feeds, and normal output discussed with mother. Mother is encouraged to page for further assistance as needed. 03/22/21 [id number] Consult Initial assessment Previous n/a Gestational Age (wk) 40 wk Time Spent (min) 15-30 min Assessment Breast size average;soft Left nipple appearance intact;erect Nipple size average Left feeding position cross-cradle;football hold Effort to latch gentle stimulation needed for to latch Breastfeed results good Breast Surgery no Breast feeding Assistance Device Lanolin Social Service OB Consult Eva Granados 2000 OB Social Work Consult Reason for Referral: CHANDA has hx of anx Interview Participants: MOB Support System Father of Baby: Yes Family Support: Yes Marital Status: Single Patient Information Employment: yes Student: no Household Size: 3 Other Children in home: 0 Manager Monitoring / Family Physician: Dr Porras Problem List: Psychiatric History Community Agencies Involved: Wic Assessment:: MOB has hx of anx. Reports that she gets nervous but is okay. MOB reports she has hx of dep but hasn't had it [id number]. PPD handout provided with verbal edu on sxs of PPD. MOB has late care per chart review. MOB reports she did not find out she was till late. Started going as soon as she found out she was . MOB tox screens on 03/21/2021 and 11/26/2020 were neg on all panels. Has WiC, ins, car seat and crib. Has [employer] ins. Taking baby to Dr Porras. Breast feeding baby. Dad is Maria Antonia Clark and baby will be named Lida Clark. No concerns identified. Referrals Planned/Recommended @ DC: (none) Social Christian Guzman Images from the original note were not included. Rosina Vergara Social Worker IP Pellet Post Inspector D/C Planning Signed Note Time: 03/22/21 1509 Creation Time: 03/22/21 150 Signed []Hide copied text []Hover for details 2:52pm attempted to complete consult MOB with will attempt later. IV saline locked. Pt up to void, pads changed. To room 2167 via wheelchair in good condition, RN provided updates. Recovery completed. Epidural removed. Patient assisted to bathroom, ambulates and voids without difficulty. CAROL provided and explained. Pain medication given. Patient assisted with breast feeding, awaiting breakfast, denies further needs. Vaginal Delivery Note Eva Granados 2000 [id number] 20 y.o. at 40w0d gestation Delivering Threader: Lexi Lewis Primary Threader: Lexi Lewis Pre-Delivery Diagnosis: IUP at 40 weeks, active labor Post-Delivery Diagnosis: Same plus viable female Procedure: Spontaneous vaginal delivery Anesthesia: epidural Episiotomy: none Laceration: Bilateral labial and left sulcal Repaired with: 3-0 Vicryl rapide Cord and Placenta Description: complete, 3 vessel cord Estimated Blood Loss: 150 mL Baby's weight: 8 lb 3 oz Baby's sex: female Apgars: 8, 9 Cord gasses collected: Yes Disposition: Mom stable, baby pink, crying, vigorous, moving all extremities well. Lexi Lewis 03/22/[address] Lewis to let her know that pt is complete with membranes still intact. Informed her that pt is complete, comfortable, but has had a few late decels. Bolus in, pt turned, and oxygen applied at this time. Dr. Lewis states that she will be in shortly. Called Dr. Lewis with pt update. Discussed pt SVE 2/90/-3 and pt contraction pattern and FHR tracing. Orders received to give pt option to go home or to continue being monitored. If staying, start IV, draw labs and give 10 mg Nubain if needed for pain. Call made to Dr. Lewis regarding pt arrival and status. Discussed pt's contraction pattern, FHR tracing, and SVE. Orders received to orally hydrate pt, monitor for 2 hours, recheck cervix after 2 hours and then call back with report. Pt presents to unit via wheelchair at 39w6d stating that she has been dianna since this morning that has worsened through the evening. Pt to room 2104. EFM monitors applied. SVE . documented in this encounter [facility] 03-24-2021 Hospital course Narrative Obstetrical Discharge Summary Eva Granados 2000 [id number] 03/21/2021 Delivering OB Clinician: Lexi Lewis MD Primary OB: Nicole Rodarte DO Gestational Age:40w0d Pre-Delivery Diagnosis: Term , late PNC, chlamydia in preg Discharge Diagnosis: Same, plus viable female Delivery Type: spontaneous vaginal delivery Feeding method: Breast H/H at Discharge: Lab Results Component Value Date HGB 9.1 (L) 03/23/2021 Lab Results Component Value Date HCT 28.6 (L) 03/23/2021 Discharge Medications START taking these medications acetaminophen 500 MG tablet Dose: 1,000 mg 1,000 mg, Oral, EVERY 6 HOURS PRN Commonly known as: TYLENOL DSS 100 MG Caps Dose: 100 mg 100 mg, Oral, 2 TIMES DAILY PRN ibuprofen 800 MG tablet Dose: 800 mg 800 mg, Oral, EVERY 8 HOURS PRN Commonly known as: ADVIL,MOTRIN CONTINUE these medications which have NOT CHANGED Vitamin Plus Low Iron 27-1 MG Tabs Dose: 1 tablet 1 tablet, Oral, DAILY STOP taking these previous medications Ondansetron 4 MG disintegrating tablet Commonly known as: ZOFRAN-ODT Unresulted tests: none Plan: Continue vitamins Nothing in the vagina until after your 6 week visit. Follow-up appointment with your doctor in 6 weeks. Release to home Nicole Rodarte 03/24/2021 documented in this encounter [facility] 03-24-2021 History of Presen t illness Narrative This note was generated using voice activated software and may contain errors. Rounding Note Eva Granados 20 y.o. Patient is resting comfortably in bed. She has no complaints other than soreness. She reports minimal cramping. Her lochia is decreasing. She is tolerating a regular diet, ambulating and voiding without difficulty. She is . Objective: Visit Vitals BP 115/55 Pulse 76 Temp 98.3 F (36.8 C) (Tympanic) Resp 16 Ht 5' 6 (1.676 m) Wt 111.6 kg (246 lb) LMP 07/15/2020 SpO2 97% Yes BMI 39.71 kg/m General Appearance: No acute distress. Abdomen: Soft, non-tender. Fundus firm below umbilicus Pelvic exam: deferred Extremities: 1+ nonpitting b/l LE edema Assessment: PPD #2 s/p Rh pos ABLA, VSS Plan: 1. Routine care 2. Encourage 3. Anticipate discharge home today PPD #1 s/p normal spontaneous vaginal delivery S: No complaints. Pain controlled, but sore. Tolerating regular diet. Ambulating. Voiding without difficulty. Lochia wnl. O: Vital signs reviewed and within normal limits Gen: NAD Abd: Soft, NT, fundus firm and at umbilicus Ext: NT A/P: PPD #1 1. Doing well 2. Routine care PPD #0 s/p normal spontaneous vaginal delivery S: No complaints. Pain controlled. Tolerating regular diet. Ambulating. Voiding without difficulty. Lochia wnl. O: Vital signs reviewed and within normal limits Gen: NAD Abd: Soft, NT, fundus firm and at umbilicus Ext: NT A/P: PPD #0 1. Doing well 2. Routine care documented in this encounter [facility] 03-22-2021 History and physical note This note was generated using voice activated software and may contain errors. Eva Granados 20 y.o. Assessment: 20 y.o. year old at 40 weeks 0 days presents in active labor. Plan: 1. Pitocin per protocol 2. GBS neg 3. Routine admission orders 4. FHT category II 5. Artificial rupture performed for clear fluid 6. Will begin pushing Subjective: 20 y.o. year old at 40 weeks 0 days presented last night with c/o contractions. She has made cervical change overnight on her own. No loss of fluid. She is currently comfortable with epidural. Her has been remarkable for : 37w US: vertex, EFW 3028g (4hi18ll) 42%ile, SUGAR 15.0cm, post gr3 placenta Late PNC with dating at 23w Mildly elevated BP at NOB and again at 39w - baseline preE labs WNL pr:cr 0.1 Chlamydia at NOB - Asael neg, 36w neg She is a patient of Dr. Rodarte and was scheduled for induction later this week. PMH: Past Medical History: Diagnosis Date Mental disorder anxirty, no meds PSH: No past surgical history on file. Meds: No current facility-administered medications on file prior to encounter. Current Outpatient Medications on File Prior to Encounter Medication Sig Dispense Refill Ondansetron (ZOFRAN-ODT) 4 MG disintegrating tablet Take 1 tablet by mouth every 8 hours as needed for Nausea and/or Vomiting. Dissolve on tongue then swallow. 30 tablet 1 Vit-Fe Fumarate-FA ( VITAMIN PLUS LOW IRON) 27-1 MG TABS Take 1 tablet by mouth daily. 30 tablet 0 Allergies: No Known Allergies SocHx: Social History Tobacco Use Smoking status: Former Smoker Quit date: 11/02/2020 Years since quittin.3 Smokeless tobacco: Never Used Vaping Use Vaping Use: Former Substances: Nicotine, Flavoring Devices: Disposable Substance Use Topics Alcohol use: Not Currently Drug use: Never ROS: Denies chest pain, SOB, GI, or symptoms. All other organ systems were reviewed and negative. Objective: Exam: General Appearance: No acute distress. Lungs: Clear to auscultation Heart: Regular rate and rhythm without murmur Abdomen: Soft, non-tender, gravid Extremities: non-tender FHT: 140, moderate variability, +accelerations, intermittent early, late, and variable decelerations [place]: q 1-3 minutes VE: Complete/+2 station with artificial rupture performed for clear fluid Eva Granados 2000 [id number] 20 y.o. at 40w1d with EDC of Estimated Date of Delivery: 03/22/21 who is being admitted for induction of labor. Her current obstetrical history is remarkable for: 37w US: vertex, EFW 3028g (8ek87mg) 42%ile, SUGAR 15.0cm, post gr3 placenta Late PNC with dating at 23w Mildly elevated BP at NOB and again at 39w - baseline preE labs WNL pr:cr 0.1 Chlamydia at NOB - Asael neg, 36w neg OB History Para Term AB Living 1 0 0 0 0 0 SAB TAB Ectopic Multiple Live Births # Outcome Date GA Lbr Christian/2nd Weight Sex Delivery Anes PTL Lv 1 Current Past Medical History: Diagnosis Date Mental disorder anxirty, no meds No past surgical history on file. No Known Allergies No current facility-administered medications on file prior to encounter. Current Outpatient Medications on File Prior to Encounter Medication Sig Dispense Refill Ondansetron (ZOFRAN-ODT) 4 MG disintegrating tablet Take 1 tablet by mouth every 8 hours as needed for Nausea and/or Vomiting. Dissolve on tongue then swallow. 30 tablet 1 Vit-Fe Fumarate-FA ( VITAMIN PLUS LOW IRON) 27-1 MG TABS Take 1 tablet by mouth daily. 30 tablet 0 Review of Symptoms All other systems were reviewed and are negative unless otherwise stated in the HPI. Visit Vitals LMP 07/15/2020 Physical Exam General: gravid female, no acute distress Lungs: :unlabored breathing, clear to auscultation bilaterally Heart: regular rate and rhythm Neuro: alert & oriented x3 Abdomen: gravid, soft, nontender Extremities: no edema, neg Alexandria's test bilateral lower extremities Skin: no rashes, no lesions Presentation: cephalic FHTs: To be assessed on arrival [place]: To be assessed on arrival Cervix: Last in office Dilation: 1cm Effacement: 50% Station: -3 Damon score: 3 Labs GBS neg Rh pos Impression: 20 y.o. at 40w1d Induction of labor Late PNC at 23w Chlamydia at [facility] but 36w recheck neg GBS neg Rh pos Plan: 1. ATSO [place] 2. CEFM + [place] 3. Admission labs 4. Suspect some component of mild blood pressure elevations related to anxiety as happened at [facility] and when seeing a different provider last week. Will update preeclampsia labs on admission as a precautions. 5. Cervical ripening with cytotec, plan to follow with pitocin per protocol once Damon score is more favorable 6. Pain control PRN documented in this encounter [facility] 03-06-2021 Miscellaneous Notes Pt is discharged home undelivered, not in labor, no ROM. Teaching stressed good hydration and small frequent meals. She is discharged home with all belongings and instructions in stable condition with significant other and her mother per ambulation to a private motor vehicle. Phone report to Dr Alonso, re: pt's c/o, had intercourse, no ROM, 1cm/50%/high- no real change. Contractions have gone away to pt with a left tilt and po hydration. Her first BP was high, rest have been fine. Orders received to discharge pt home. Pt presents to unit via wheelchair with c/o ctx, unsure of start time. +FM, denies vaginal bleeding, ?leaking fluid, nitrazine neg, Fern collected. SVE /-3. To triage 2102 with monitors applied. documented in this encounter [facility] 03-06-2021 Hospital Discharg e Nadege Fisher RN - 03/06/2021 Signs and Symptoms of Labor Drink a minimum of 8-10 large glasses of water every day, if you are hydrated you will be more comfortable and baby moves more. Eat small frequent meals for your comfort and for baby well being. Keep your Doctor appointments and call the office or your doctor for questions or concerns. This is a guide for you about the signs of true labor. If you have any of these signs before 36 weeks of (nine months), please call your private physician. If you do not have a private physician call the [facility] NurseLine right away at or . Contractions The uterus (womb), that is holding your baby, is a large muscle and when it tightens (you may feel your tummy getting very hard). This hardening is called a contraction. True Labor ? Contractions occur at regular intervals lasting 60 seconds or longer. ? Contractions get gradually closer together and stronger. ? There is increasing discomfort or pain. ? Your cervix (the opening of the uterus) softens, shortens, and dilates or opens. False Labor ? Contractions are usually irregular. ? Contractions do not get closer together. They may stop after an hour or so. ? Discomfort or pain does not increase. Your cervix does not change. What to do If you think you are in Labor: ? Rest if possible on your left side. ? Time your contractions with a watch. ? If one starts at 9:10 and the next one starts at 9:16 they are six minutes apart. ? Do not eat. Clear liquids are permissible. ? Call according to your Doctor s instructions. [facility] is located at [facility] on the [facility]. Warning Signals Possible Complications in Call if: ? You have chills and fever with a temperature above 100 degrees F. ? You experience prolonged nausea and vomiting. ? You have a severe headache with blurred vision. ? You have pain or burning during urination and/or more frequent urination. ? You notice any sudden swelling of your face, hands, or feet. ? You plan to return to the hospital. Go to the Hospital if: ? There is any leakage of water from the vagina. ? You have severe persistent pain in the abdomen or back. ? You experience spotting or bleeding from the vagina not normal bright red, pink, brown, navarro. ? Fainting. Instructions on Labor Go to the Hospital if: ? Any leakage of fluid (any color). ? Bleeding (if you need to wear a pad or mini-pad). ? Contractions regular five minutes apart or persistent back pain. ? Decreased movement (use kick count). documented in this encounter [facility] 03-02-2021 Miscellaneous Notes EFM discontinued, pt given s/s of labor instruction, pt states understanding. Pt dismissed in stable condition, not in active labor, accompanied ambulatory with SO. Dr. Alonso beeped, returns call, report given of Dr. Rodarte pt, g/p, edc, fhr reactive with movement, contx q 3 after being checked, sve is closed, nitrazine and fern negative, -gbs, pt has appt with Dr. Rodarte on March 04. Pt may be discharged. Pt arrives at 37 1/[address] Rodarte, Dr Alonso is on. States she is losing her mucas plug for 3 days and since 0 feels like it is more waterey, also has been feeling crampy for one week. Pt did not wear a pad in. To bathroom for urine specimen, then to room 2102. Pt changed, then efm explained and applied, pt states understanding. documented in this encounter [facility] 02-03-2021 Miscellaneous Notes Patient provided with verbal and written discharge instructions, patient and s/o verbalizes understanding and denies any questions or concerns at this time, signed copy obtained. Patient ambulates off of unit in stable condition. Dr. Alonso notified of patient arrival with c/o of lower abd pain that wraps around her sides that has worsened since 1999 tonight rating the pain 7/10, pt denies vaginal LOF or bleeding, abd palpates soft, the rest of the assessment is neg, vitals WNL, urine dip is neg, no ctx noted since arrival, FHTs mod variability. Dr. Alonso orders patient may be discharged to home with reassurance of hydration, rest, and Tylenol and once reactive NST, RBO. Patient arrives via wheelchair with c/o lower abd pain that wraps around side that has worsened since 1999 rating 7/10, movement present, denies vaginal LOF/bleeding, to triage room 2100 with monitors applied, education provided. documented in this encounter [facility] 02-03-2021 Hospital Discharg e instructions Jorge Moreira RN - 02/03/2021 Weeks 32 to 34 of Your : Care Instructions Overview During the last few weeks of your , you may have more aches and pains. It's important to rest when you can. Your growing baby is putting more pressure on your bladder. So you may need to urinate more often. Hemorrhoids are also common. These are painful, itchy veins in the rectal area. You may want to talk with your doctor about banking your baby's umbilical cord blood. This is the blood left in the cord after . If you want to save this blood, you must arrange it ahead of time. You can't decide at the last minute. If you haven't already had the Tdap shot during this , talk to your doctor about getting it. It will help protect your against pertussis infection. Follow-up care is a guallpa part of your treatment and safety. Be sure to make and go to all appointments, and call your doctor if you are having problems. It's also a good idea to know your test results and keep a list of the medicines you take. How can you care for yourself at home? Ease hemorrhoids Get more liquids, fruits, vegetables, and fiber in your diet. This will help keep your stools soft. Avoid sitting for too long. Lie on your left side several times a day. Clean yourself with soft, moist toilet paper. Or you can use witch sadaf pads or personal hygiene pads. If you are uncomfortable, try ice packs. Or you can sit in a warm sitz bath. Do these for 20 minutes at a time, as needed. Use hydrocortisone cream for pain and itching. Two examples are Anusol and Preparation H Hydrocortisone. Ask your doctor about taking an [id number] stool softener. Consider Experts recommend that women breastfeed for 1 year or longer. Breast milk may help protect your child from some health problems. Breastfed babies are less likely than formula-fed babies to: ? Get ear infections, colds, diarrhea, and pneumonia. ? Be obese or get diabetes later in life. Women who breastfeed have less bleeding after the . Their uteruses also shrink back faster. Some women who breastfeed lose weight faster. Making milk younger calories. can lower your risk of breast cancer, ovarian cancer, and osteoporosis. Decide about circumcision for boys As you make this decision, it may help to think about your personal, sabianism, and family traditions. You get to decide if you will keep your son's penis natural or if he will be circumcised. If you decide that you would like to have your baby circumcised, talk with your doctor. You can share your concerns about pain. And you can discuss your preferences for anesthesia. Where can you learn more? Go to https://www.[employer].net/pat ientEd Enter X711 in the search box to learn more about Weeks 32 to 34 of Your : Care Instructions. Current as of: July 09, 2020 Content Version: 12.8 [employer]. Care instructions adapted under license by your healthcare professional. If you have questions about a medical condition or this instruction, always ask your healthcare professional. [employer] disclaims any warranty or liability for your use of this information. documented in this encounter [facility] Evaluation note Diagnosis 36 weeks gestation of state, incidental Chlamydia trachomatis infection in mother during second trimester of [facility] Diagnosis (spontaneous vaginal delivery)- Primary Normal delivery Encounter for induction of labor Normal labor Chlamydia trachomatis infection in mother during second trimester of Late care affecting in second trimester [facility] Diagnosis Breast pain, left Mastodynia [facility] Diagnosis URI with cough and congestion [facility] Diagnosis Sore throat- Primary Acute pharyngitis [facility] Instructions* Tamiko Melo RN - 03/02/2021 Signs and Symptoms of Labor This is a guide for you about the signs of true labor. If you have any of these signs before 36 weeks of (nine months), please call your private physician. If you do not have a private physician call the [facility] NurseLine right away at or . Contractions The uterus (womb), that is holding your baby, is a large muscle and when it tightens (you may feel your tummy getting very hard). This hardening is called a contraction. True Labor ? Contractions occur at regular intervals lasting 60 seconds or longer. ? Contractions get gradually closer together and stronger. ? There is increasing discomfort or pain. ? Your cervix (the opening of the uterus) softens, shortens, and dilates or opens. False Labor ? Contractions are usually irregular. ? Contractions do not get closer together. They may stop after an hour or so. ? Discomfort or pain does not increase. Your cervix does not change. What to do If you think you are in Labor: ? Rest if possible on your left side. ? Time your contractions with a watch. ? If one starts at 9:10 and the next one starts at 9:16 they are six minutes apart. ? Do not eat. Clear liquids are permissible. ? Call according to your Doctor s instructions. [facility] is located at [facility] on the [facility]. Warning Signals Possible Complications in Call if: ? You have chills and fever with a temperature above 100 degrees F. ? You experience prolonged nausea and vomiting. ? You have a severe headache with blurred vision. ? You have pain or burning during urination and/or more frequent urination. ? You notice any sudden swelling of your face, hands, or feet. ? You plan to return to the hospital. Go to the Hospital if: ? There is any leakage of water from the vagina. ? You have severe persistent pain in the abdomen or back. ? You experience spotting or bleeding from the vagina not normal bright red, pink, brown, navarro. ? Fainting. Instructions on Labor Go to the Hospital if: ? Any leakage of fluid (any color). ? Bleeding (if you need to wear a pad or mini-pad). ? Contractions regular five minutes apart or persistent back pain. ? Decreased movement (use kick count). [facility] Instructions* Maile Moses RN - 03/24/2021 Images from the original note were not included. After Your Delivery (the Period): Care Instructions Your Care Instructions Congratulations on the of your baby. Like , the period can be a time of excitement, cash, and exhaustion. You may look at your wondrous little baby and feel happy. You may also be overwhelmed by your new sleep hours and new responsibilities. At first, babies often sleep during the days and are awake at night. They do not have a pattern or routine. They may make sudden gasps, jerk themselves awake, or look like they have crossed eyes. These are all normal, and they may even make you smile. In these first weeks after delivery, try to take good care of yourself. It may take 4 to 6 weeks tofeel like yourself again, and possibly longer if you had a . You will likely feel very tired for several weeks. Your days will be full of ups and downs, but lots of cash as well. Follow-up care is a guallpa part of your treatment and safety. Be sure to make and go to all appointments, and call your doctor if you are having problems. It's also a good idea to know your test resultsand keep a list of the medicines you take. How can you care for yourself at home? Take care of your body after delivery Use pads instead of tampons for the bloody flow that may last as long as 2 weeks. Ease cramps with ibuprofen (Advil, Motrin). Ease soreness of hemorrhoids and the area between your vagina and rectum with ice compresses or witch sadaf pads. Ease constipation by drinking lots of fluid and eating high-fiber foods. Ask your doctor about hvxc-zkn-qucctry stool softeners. Cleanse yourself with a gentle squeeze of warm water from a bottle instead of wiping with toilet paper. Take a sitz bath in warm water several times a day. Wear a good nursing bra. Ease sore and swollen breasts with warm, wet washcloths. If you are not , use ice rather than heat for breast soreness. Your period may not start for several months if you are . You may bleed more, and longer at first, than you did before you got . Wait until you are healed (about 4 to 6 weeks) before you have sexual intercourse. Your doctor willtell you when it is okay to have sex. Try not to travel with your baby for 5 or 6 weeks. If you take a long car trip, make frequent stopsto walk around and stretch. Avoid exhaustion Rest every day. Try to nap when your baby naps. Ask another adult to be with you for a few days after delivery. Plan for children's service worker if you have other children. Stay flexible so you can eat at odd hours and sleep when you need to. Both you and your baby are making new schedules. Plan small trips to get out of the house. Change can make you feel less tired. Ask for help with housework, cooking, and shopping. Remind yourself that your job is to care for your baby. Know about help for depression Baby blues are common for the first 1 to 2 weeks after . You may cry or feel sad or irritable for no reason. Rest whenever you can. Being tired makes it harder to handle your emotions. Go for walks with your baby. Talk to your partner, friends, and family about your feelings. If your symptoms last for more than a few weeks, or if you feel very depressed, ask your doctor forhelp. depression can be treated. Support groups and counseling can help. Sometimes medicine can also help. Stay healthy Eat healthy foods so you have more energy and lose extra baby pounds. If you breastfeed, avoid drugs. If you quit smoking during , try to stay smoke-free. If you choose to have a drink now and then, have only one drink, and limit the number of occasions that you have a drink. Wait to breastfeed at least 2 hours after you have a drink to reduce the amount of a lcohol the baby may get in the milk. Start daily exercise after 4 to 6 weeks, but rest when you feel tired. Learn exercises to tone your belly. Do Kegel exercises to regain strength in your pelvic muscles. You can do these exercises while you stand or sit. ? Squeeze the same muscles you would use to stop your urine. Your belly and thighs should not move. ? Hold the squeeze for 3 seconds, and then relax for 3 seconds. ? Start with 3 seconds. Then add 1 second each week until you are able to squeeze for 10 seconds. ? Repeat the exercise 10 to 15 times for each session. Do three or more sessions each day. Find a class for new mothers and new babies that has an exercise time. If you had a , give yourself a bit more time before you exercise, and be careful. When should you call for help? Call 911 anytime you think you may need emergency care. For example, call if: You have thoughts of harming yourself, your baby, or another person. You passed out (lost consciousness). You have chest pain, are short of breath, or cough up blood. You have a seizure. Call your doctor now or seek immediate medical care if: You have severe vaginal bleeding. This means you are passing blood clots and soaking through a pad each hour for 2 or more hours. You are dizzy or lightheaded, or you feel like you may faint. You have a fever. You have new or more belly pain. You have signs of a blood clot in your leg (called a deep vein thrombosis), such as: ? Pain in the calf, back of the knee, thigh, or groin. ? Redness and swelling in your leg or groin. You have signs of preeclampsia, such as: ? Sudden swelling of your face, hands, or feet. ? New vision problems (such as dimness, blurring, or seeing spots). ? A severe headache. Watch closely for changes in your health, and be sure to contact your doctor if: Your vaginal bleeding seems to be getting heavier. You have new or worse vaginal discharge. You feel sad, anxious, or hopeless for more than a few days. You do not get better as expected. Where can you learn more? Go to https://www.[employer].net/patientEd Enter A461 in the search box to learn more about After Your Delivery (the Period): CareInstructions. Current as of: July 09, 2020 Content Version: 12.9 [employer]. Care instructions adapted under license by your healthcare professional. If you have questions about a medical condition or this instruction, always ask your healthcare professional. [employer] disclaims any warranty or liability for your use of this information. * Attachments The following attachments cannot be sent through Care Everywhere. * ([place]) [facility]* Attachments The following attachments cannot be sent through Care Everywhere. * Sore Throat ([place]) [facility] for [facility] (narrative)* Procedure Authorization (Routine) - Closed Specialty Diagnoses / Procedures Referred By Lilo t Referred To Contact Diagnoses Breast pain, left Procedures US Breast Left Limited Marianna Abbasi APRN [employer] [address] [place] [address] [employer] [address] [address] Referral ID Status Reason Start Date Expiration Date Visits Re quested Visits Authorized [id number] Closed 09/21/2021 10/22/2022 1 1 [facility] for visit Narrative* Procedure Authorization (Routine) - Closed Specialty Diagnoses / Procedures Referred By Contac t Referred To Contact Diagnoses Breast pain, left Procedures US Breast Left Limited Marianna Abbsai APRN [employer] [address] [place] [address] [employer] [address] [address] Referral ID Status Reason Start Date Expiration Date Visits Re quested Visits Authorized [id number] Closed 09/21/2021 10/22/2022 1 1 [facility] Reason for Referral Status Reason Specialty Diagnoses / Procedures Referred By Contact Referred To Contact [facility] 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 Diagnoses Pain, dental Jaw swelling Aliya Cao DO [address] [place] [address] [facility] [address] [place] [address] Status Reason Specialty Diagnoses / Procedures Referred By Contact Referred To Contact [facility] Diagnoses Pain, dental Jaw swelling Aliya Cao DO [address] [place] [address] [facility] [address] [address] [place] [address] Discharge Instructions * Instructions* Aliya Cao DO - 08/14/2020 No driving or operating heavy machinery while taking norco - no extra tylenol * Attachments The following attachments cannot be sent through Care Everywhere. * Tooth and Gum Pain ([place]) documented in this encounter Assessments Diagnosis Pain, dental- Primary Unspecified disorder of the teeth and supporting structures Jaw swelling Temporomandibular joint disorders, unspecified Diagnosis Late care affecting in second trimester History of low potassium Elevated blood pressure reading Elevated blood pressure reading without diagnosis of hypertension Diagnosis Late care affecting in second trimester Diagnosis 27 weeks gestation of state, incidental Chlamydia trachomatis infection in mother during second trimester of Diagnosis 27 weeks gestation of state, incidental Advance Directives No Advanced Directives Records FoundDocuments on File Type Date Recorded 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 Products Printer Expl anation Advance Directives and Living Will Power of Lime Supervisor Documents on File Type Date Recorded 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 Products Printer Expl anation Advance Directives and Living Will Power of Lime Supervisor Latest Code Status on File Code Status Date Activated Date Inactivated Comments Full Code 02/03/2021 10:11 PM Latest Code Status on File Code Status Date Activated Date Inactivated Comments Full Code 02/03/2021 10:11 PM 02/04/2021 5:02 AM Latest Code Status on File Code Status Date Activated Date Inactivated Comments Full Code 03/02/2021 1:46 AM Full Code 02/03/2021 10:11 PM 02/04/2021 5:02 AM Latest Code Status on File Code Status Date Activated Date Inactivated Comments Full Code 03/06/2021 9:45 PM Full Code 03/06/2021 9:01 PM 03/06/2021 9:45 PM Full Code 03/02/2021 1:46 AM 03/02/2021 9:03 AM Latest Code Status on File Code Status Date Activated Date Inactivated Comments Full Code 03/22/2021 5:16 AM Full Code 03/22/2021 1:13 AM 03/22/2021 5:16 AM Full Code 03/21/2021 9:27 PM 03/22/2021 1:13 AM Full Code 03/19/2021 11:50 AM 03/21/2021 9:27 PM Full Code 03/06/2021 9:45 PM 03/07/2021 4:11 AM Latest Code Status on File Code Status Date Activated Date Inactivated Comments Full Code 03/22/2021 5:16 AM 03/24/2021 7:51 PM Documents on File Type Date Recorded 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 Products Printer Expl anation Advance Directives and Living Will Power of Lime Supervisor DNR Documentation Latest Code Status on File Code Status Date Activated Date Inactivated Comments Full Code 03/22/2021 5:16 AM 03/24/2021 7:51 PM Full Code 03/22/2021 1:13 AM 03/22/2021 5:16 AM Full Code 03/21/2021 9:27 PM 03/22/2021 1:13 AM Full Code 03/19/2021 11:50 AM 03/21/2021 9:27 PM Full Code 03/06/2021 9:45 PM 03/07/2021 4:11 AM Documents on File Type Date Recorded 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 Products Printer Expl anation Advance Directives and Living Will Power of Lime Supervisor DNR Documentation Summary Purpose Family History No Family History Records Found Additional Source Comments Reason for Visit (unrecogniz ed section and content) Reason Comments Dental Pain left side Reason Comments Abdominal Pain constant pain since 1999 Reason Comments Rupture of Membranes feels like she is l osing her mucas plug for 3 days, and is now feeling leaking Abdominal Cramping cramping for a week Reason Comments Contractions q 3-5 minutes Rupture of Membranes thinks she is leaki ng something Reason Comments Abdominal Pain 39.6 Status Reason Specialty Diagnoses / Procedures Referre d By Contact Referred To Contact Diagnoses Uterine contractions during Irregular contractions cytotec iol Procedures INDUCTION CYTOTEC Reason Comments Other Throat tightness Aliya Cao, - 08/14/2020 8:59 AM Juliann Harris RN - 08/14/2020 6:49 AM EST ED Notes (unrecognized secti on and content) ED Diagnosis and Summary 1. Pain, dental 2. Jaw swelling ED Summary We will treat with antibiotics, NSAIDs, and a small supply of narcotics with referral for a primary provider and dentistry. She is comfortable with discharge home and follow-up. History Chief Complaint Patient presents with Dental Pain left side Patient's medications and allergies were reviewed and updated as appropriate. Patient's medications, allergies, past medical, surgical, social and family histories were reviewed and updated as appropriate. I have reviewed and agree with nursing notes, unless otherwise noted. HPI Patient presents to the emergency department with complaints of dental pain. She reports her symptoms started 2 months ago with intermittent pain to the left side of her face associated with headaches. She reports the pain is been worse over the past 2 days prompting her visit here. She denies any fevers or URI symptoms. She has been using with Tylenol and ibuprofen for her symptoms without any relief. She does note some swelling to her left jaw. No difficulty swallowing. She recently moved to this area and has no primary provider nor dentist. Review of Systems Constitutional: Positive for activity change. Negative for fever. HENT: Positive for dental problem, ear pain and facial swelling. Negative for sore throat and trouble swallowing. Respiratory: Negative for cough. Gastrointestinal: Negative for nausea. Musculoskeletal: Negative. Skin: Negative for color change. Neurological: Positive for headaches. Psychiatric/Behavioral: Positive for sleep disturbance. Physical Exam ED Triage Vitals [08/14/20 0650] BP 135/74 Heart Rate 82 Resp 18 Temp 98.4 F (36.9 C) Temp Source FOREHEAD SpO2 99 % Weight 200 lb (90.7 kg) Height 5' 6 (1.676 m) BMI (Calculated) 32.3 Physical Exam Vitals signs and nursing note reviewed. Constitutional: Appearance: Normal appearance. She is not ill-appearing. HENT: Head: Normocephalic and atraumatic. Comments: Tenderness with percussion of left mandibular molar region with localized left mandibular swelling with no overlying erythema or fluctuance. No drainable abscess. No trismus. Right Ear: Tympanic membrane normal. Left Ear: Tympanic membrane normal. Nose: Nose normal. Mouth/Throat: Mouth: Mucous membranes are moist. Pharynx: No oropharyngeal exudate or posterior oropharyngeal erythema. Eyes: Conjunctiva/sclera: Conjunctivae normal. Neck: Musculoskeletal: Normal range of motion and neck supple. Cardiovascular: Rate and Rhythm: Normal rate and regular rhythm. Pulses: Normal pulses. Heart sounds: Normal heart sounds. Pulmonary: Effort: Pulmonary effort is normal. Breath sounds: Normal breath sounds. Musculoskeletal: General: No swelling. Skin: General: Skin is warm and dry. Capillary Refill: Capillary refill takes less than 2 seconds. Neurological: General: No focal deficit present. Mental Status: She is alert. Psychiatric: Mood and Affect: Mood normal. ED Course Procedures Medical Decision Making Aliya Cao DO 08/14/20 0919 Left sided dental pain for the past couple of months. Increased over the past three days. Pt reports that the pain 10/10 described as hurts really bad. Pt reports that she thinks it is her wisdom teeth. Pt reports difficulty sleeping. Pt sitting in chair alert and oriented. Pt appears uncomfortable, respirations even unlabored. Skin warm pink and dry. documented in this encounter Scheduled Active and Recently Administ ered Medications (unrecognized section and content) Medication Order 03/22/2021 03/23/2021 03/24/2021 lactated ringers bolus solution 1,000 mL (COMPLETED) 1,000 mL, Intravenous, Administer over 1.01 Hours, On Mon03/22/21 at 0030, ONCE, 1 dose 0054 (New Bag - Provider: Leah Belle RN) lactated ringers bolus solution 1,000 mL (COMPLETED) 1,000 mL, Intravenous, Administer over 31 Minutes, On Mon03/22/21 at 0145, ONCE, 1 dose, (in preparation for regional anesthesia). Cannot be run through an Alaris pump at this rate. Please run off the pump (use bolus from bag action)., Pre-Delivery 0425 (New Bag - Provider: Leah Belle RN) multivitamin 27-0.8 MG tablet 1 tablet 1 tablet, Oral, DAILY, First dose on Mon03/22/21 at 0900, Until Discontinued 0900 (Due) 0941 (Given - Provider: Ella Duarte RN) 0824 (Given - Provider: Maile Moses RN) TdaP xpyzyxe-qckzurjyuq-oyij lular pertussis (BOOSTRIX) injection 0.5 mL 0.5 mL, Intramuscular, PRIOR TO DISCHARGE, 1 dose, On Mon03/22/21 at 0600, ONLY give if patient has not received during this . 0900 (Due - Provider: Leah Graves RN) Continuous Medication Order 03/22/2021 03/23/2021 03/24/2021 lactated ringers infusion Intravenous, at 125 mL/hr, CONTINUOUS, Starting on Mon03/22/21 at 0030, Until Discontinued 0135 (New Bag - Provider: Leah Belle RN)0457 (Stopped - Provider: Leah Graves, DAVID) oxytocin 20 units in 1000mL LR - post 125-1,000 mL/hr, Intravenous, Starting on Mon03/22/21 at 1715, CONTINUOUS, Until Discontinued, Run wide open until bleeding controlled, then continue at 125mL/hr. May discontinue or saline lock at nurse's discretion 1715 (Due) PRN Medication Order 03/22/2021 03/23/2021 03/24/2021 acetaminophen (TYLENOL) tablet 1,000 mg 1,000 mg, Oral, EVERY 6 HOURS PRN, Mild Pain, Fever, Headaches, Starting on Mon03/22/21 at 0514, Until Discontinued, Maximum dose of acetaminophen is 4000 mg from all sources in 24 hours. 0228 (Given - Provider: Janet Lewis RN) aluminum-magnesium hydroxide 200-200 MG/5ML suspension 30 mL 30 mL, Oral, EVERY 6 HOURS PRN, Cramping, Indigestion, Starting on Mon03/22/21 at 0514, Until Discontinued benzocaine-menthol (DERMOPLAST) 20-0.5 % topical spray Topical, PRN, may leave @@ bedside, Starting on Mon03/22/21 at 0514, Until Discontinued, Apply topically to perineum 0650 (Given - Provider: Leah Belle RN)0710 (Given - Provider: Leah Graves RN) 1044 (Due) diphenhydrAMINE (BENADRYL) capsule 25 mg 25 mg, Oral, EVERY 6 HOURS PRN, Itching, Starting on Mon03/22/21 at 0514, Until Discontinued docusate sodium (COLACE) capsule 100 mg 100 mg, Oral, 2 TIMES DAILY PRN, Constipation, Starting on Mon03/22/21 at 0514, Until Discontinued, Until bowel movement. 2213 (Due) docusate sodium (COLACE) capsule 100 mg 100 mg, Oral, 2 TIMES DAILY PRN, Constipation, Starting on Mon03/22/21 at 0514, Until Discontinued, Caution: Do not crush or chew due to taste. Administration via tube should be acceptable. 2216 (Given - Provider: Mehreen Bahena RN) famotidine (PEPCID) tablet 20 mg 20 mg, Oral, 2 TIMES DAILY PRN, Heartburn, Indigestion, Starting on Mon03/22/21 at 0514, Until Discontinued Hydrocort-Pramoxine (Perianal) (ANALPRAM-HC) rectal cream Perineal, PRN, Hemorrhoids, Starting on Mon03/22/21 at 0514, Until Discontinued 0650 (Given - Provider: Leah Belle RN) Hydrocortisone (Perianal) 2.5 % rectal cream Perineal, PRN, Hemorrhoids, may leave @@ bedside, Starting on Mon03/22/21 at 0514, Until Discontinued, Apply topically to perineum 0650 (Given - Provider: Leah Belle RN)0710 (Given - Provider: Leah Graves, DAVID) ibuprofen (ADVIL,MOTRIN) tablet 800 mg 800 mg, Oral, EVERY 8 HOURS PRN, Mild Pain, Moderate Pain, Fever, Starting on Mon03/22/21 at 0514, Until Discontinued 0710 (Given - Provider: Leah Graves RN)1613 (Given - Provider: Susan Olivares RN) 1243 (Given - Provider: Ella Duarte RN)2358 (Given - Provider: Mehreen Bahena, DAVID) Lanolin Hydrous ointment Topical, PRN, Dry Skin, Starting on Mon03/22/21 at 0514, Until Discontinued Magnesium Hydroxide (MOM) suspension (CONC) 10 mL 10 mL, Oral, DAILY PRN, Constipation, Starting on Mon03/22/21 at 0514, Until Discontinued, 10 ml concentrate = 30 ml regular strength Ondansetron (ZOFRAN-ODT) disintegrating tablet 4 mg 4 mg, Oral, EVERY 6 HOURS PRN, Nausea, Starting on Mon03/22/21 at 0514, Until Discontinued, dissolved in mouth ondansetron hcl (ZOFRAN) injection 4 mg 4 mg, IV Push, EVERY 6 HOURS PRN, Nausea, Vomiting, Starting on Mon03/22/21 at 0514, Until Discontinued, Caution: This medication looks and/or sounds like another medication. oxyCODONE (ROXICODONE) immediate release tablet 5-10 mg 5-10 mg, Oral, EVERY 4 HOURS PRN, Severe Pain, Starting on Mon03/22/21 at 0514, Until Discontinued, Caution: This medication looks and/or sounds like another medication. oxytocin (PITOCIN) 10 units in LR 500 mL infusion - (COMPLETED) 10 Units (500 mL), Intravenous, Administer over 4 Hours, Starting on Mon03/23/21 at 0000, after delivery of the placenta, ONCE PRN, 1 dose, Until Mon03/23/21 at 2359 0529 (New Bag - Provider: Leah Belle, DAVID)0905 (Infusion Complete - Provider: Leah Graves, DAVID) simethicone (MYLICON) chewable tablet 80 mg 80 mg, Oral, EVERY 6 HOURS PRN, Cramping, Flatulence, Starting on Mon03/22/21 at 0514, Until Discontinued zolpidem (AMBIEN) tablet 5 mg 5 mg, Oral, NIGHTLY PRN, Sleep, Starting on Mon03/22/21 at 0514, Until Discontinued Care Teams (unrecognized sec tion and content) Medical Delivery Driver Relationship Specialty Start Date End Date Pcp, None [address] [place] [address] PCP - General 08/14/20 INFORMATION SOURCE (unrecogn ized section and content) DATE CREATED AUTHOR 03/13/2023 [facility] FOR RECORDS PERTAINING TO PATIENTS WHO ARE OR HAVE BEEN ENROLLED IN A CHEMICAL DEPENDENCY/SUBSTANCEABUSE PROGRAM, SOME INFORMATION MAY BE OMITTED. This clinical summary was aggregated from multiple sources. Caution should be exercised in using it in the provision of clinical care. This summary normalizes information from multiple sources, and as a consequence, information in this document may materially change the coding, format and clinical context of patient data. In addition, data may be omitted in some cases. CLINICAL DECISIONS SHOULD BE BASED ON THE PRIMARY CLINICAL RECORDS. [facility] [employer] [facility]. provides no warranty or guarantee of the accuracy or completeness of information in this document.
[2024-04-08 20:19] VITALS: BP 140/86; PULSE 75; TEMP 37.6; O2SAT 99; BMI 30.6
--- NOTE | 2024-04-08 20:24 | PC.NURSE ---
above left eye to eye brow pt had a piercing, area has a scab to area and slight swelling with redness. PA assessing this pt at this time.
--- NOTE | 2024-04-08 20:28 | ED_ITS ---
HPI HPI - General Adult General Chief complaint: Skin/Abscess/Foreign Body Stated complaint: infection skin Time Seen by Provider: 04/08/24 20:26 Source: patient Mode of arrival: walk-in History of Present Illness HPI narrative: Patient is a 23-year-old female who presents to the emergency department for swelling around the piercing to the left eyebrow. She states she has had symptoms intermittently for 2 weeks. She states her eyelid was very swollen earlier although There has not been any drainage. No fevers or vomiting. She is not concerned for . She states that this time the swelling is bett er to the eyebrow. She has been trying to clean the area with soap and water. No medications prior to arrival. Related Data Previous Rx's ?Medication ?Instructions ?Recorded cephalexin 500 mg capsule 500 mg PO Q8H 7 days #21 caps 11/20/23 mupirocin 2 % topical ointment 1 applic topical BID #15 grams 11/20/23 sulfamethoxazole 800 1 tab PO BID 7 days #14 tabs 11/20/23 mg-trimethoprim 160 mg tablet (Bactrim DS) cephalexin 500 mg capsule 500 mg PO Q8H 10 days #30 caps 04/08/24 ketorolac 10 mg tablet 10 mg PO TID PRN pain #10 tabs 04/08/24 sulfamethoxazole 800 1 tab PO BID 10 days #20 tabs 04/08/24 mg-trimethoprim 160 mg tablet (Bactrim DS) Allergies Allergy/AdvReac Type Severity Reaction Status Date / Time No Known Drug Allergies Allergy Verified 11/20/23 16:59 Opioid HPI Opioid Management Most Recent Opioid Data: No Data to Display Review of Systems ROS Constitutional Denies: fever or chills Ears, nose, mouth, and throat Denies: throat pain or nasal congestion Respiratory Denies: shortness of breath Gastrointestinal Denies: nausea or vomiting Integumentary/Breast Reports: skin pain and skin swelling; Denies: rash Hematologic/Lymphatic Denies: easy bruising or easy bleeding PFSH PFSH Social History Smoking status: Never smoker Exam Narrative Exam Narrative: Gen.: Awake, alert, in no distress Head: Normocephalic, atraumatic ENT: Moist mucous membranes, Left eyebrow piercing has been removed, mild swelling and faint erythema noted at the piercing site. No periorbital edema or eyelid swelling. No fluctuance or drainage. Respiratory: No respiratory distress Extremities: Moves extremities equally Psych: Normal mood and affect Neuro: No focal neuro deficit Skin: Warm, dry, intact Constitutional Vital Signs, click to edit/add: Last Vital Signs Temp 99.6 F 04/08/24 20:19 Pulse 75 04/08/24 20:19 Resp 14 04/08/24 20:19 BP 140/86 04/08/24 20:19 Pulse Ox 99 04/08/24 20:19 O2 Del Method Room Air 04/08/24 20:19 Course Vital Signs Vital signs: Vital Signs Temperature 99.6 F 04/08/24 20:19 Pulse Rate 75 04/08/24 20:19 Respiratory Rate 14 04/08/24 20:19 Blood Pressure 140/86 04/08/24 20:19 Pulse Oximetry 99 04/08/24 20:19 Oxygen Delivery Method Room Air 04/08/24 20:19 Temperature 99.6 F 04/08/24 20:19 Pulse Rate 75 04/08/24 20:19 Respiratory Rate 14 04/08/24 20:19 Blood Pressure 140/86 04/08/24 20:19 Pulse Oximetry 99 04/08/24 20:19 Oxygen Delivery Method Room Air 04/08/24 20:19 Medical Decision Making [facility] Narrative Medical decision making narrative: Patient treated for wound infection of the left eyebrow piercing. She is encouraged to use soap and water only with no peroxide. She was given Bactrim and Keflex for home to follow-up with PCP. Warm compresses encouraged. Return to the ER if symptoms change or worsen SUPERVISED APC VISIT, PHYSICIAN ATTESTATION: Based on the medical record the care appears appropriate. ? Medical Records Medical records reviewed: Yes I reviewed the patient's medical records Discharge Plan Discharge Stand Alone Forms: Portal Instructions Chief Complaint: Skin/Abscess/Foreign Body Clinical Impression: Pierced eyebrow infection Patient Disposition: Home, Self-Care Time of Disposition Decision: 20:27 Condition: Good Prescriptions / Home Meds: New sulfamethoxazole-trimethoprim [Bactrim DS] 800-160 mg tablet 1 tab PO BID 10 Days Qty: 20 0RF ketorolac 10 mg tablet 10 mg PO TID PRN (Reason: pain) Qty: 10 0RF cephalexin 500 mg capsule 500 mg PO Q8H 10 Days Qty: 30 0RF No Action sulfamethoxazole-trimethoprim [Bactrim DS] 800-160 mg tablet 1 tab PO BID 7 Days Qty: 14 0RF cephalexin 500 mg capsule 500 mg PO Q8H 7 Days Qty: 21 0RF mupirocin 2 % ointment 1 applic topical BID Qty: 15 0RF Print Language: Hungarian Instructions: Wound Infection (ED) Referrals: Physician,Non-Staff, MD [Primary Care Provider] - 1 week Discharge Date/Time: 04/08/24 20:35
== END 2024-04-08 20:35 | disposition home or self-care (01) ==
PROVIDERS: Emergency Provider Internal Medicine
DX: L08.9 Local infection of the skin and subcutaneous tissue, unspecified (principal)
CPT/HCPCS: 99283

== ENCOUNTER 2024-05-24 16:34 | Outpatient (OUT) | payer OTHER, SELFPAY ==
--- NOTE | 2024-05-24 16:43 | XR_ITS ---
The [address] [address] Patient Name: VERN DUONG MRN: [id number] date: 2000 Sex: F Assigned Patient Location: [facility] Current Patient Location: Accession/Order Number: [id number] Exam Date: 05/24/2024 17:05 Report Date: 05/27/2024 07:28 At the request of: SANTINO CUEVA Procedure: XR thoracic spine 2V EXAMINATION: XR thoracic spine 2V HISTORY: BACK PAIN M54.9 COMPARISON: No relevant comparison available. FINDINGS: BONES: Normal. No significant spondylosis, scoliosis, fracture, or visible bony lesion. DISC SPACES: Normal. No significant disc height narrowing, subluxation, or endplate abnormality. PARASPINOUS: Negative. No paraspinous abnormality is seen. OTHER: Negative. XR/XR thoracic spine 2V IMPRESSION: No acute radiographic abnormality Electronically authenticated by: FAISAL CARTER Date: 05/27/2024 07:28
--- OUTSIDE RECORDS SUMMARY | 2024-05-24 16:52 | XMS_ITS | CCD ---
Author Organization [facility] Care Team Providers Care Psychologist Clinical Name Role Phone Pcp, None Primary Care Provider UnavailBRENDAN Lerma Attending Unavailable BRENDAN PEREZ Referring Unavailable PCP, NONE Primary Care Unavailable BELLE OHCOA Attending Unavailable BELLE OCHOA Referring Unavailable PCP, [...] oral solution (3 sources) alpha-Adrenergic Agonist, Uncompetitive O-kntfku-M-aspart ate Receptor Antagonist, Sigma-1 Agonist Start: 02-04-2022 [...] 23 STREP A MOLECULAR Negative Normal Negative [facility] Comment on above: Performed By: #### [id number] #### [place] [address] [place] Strep AOrdered By: Khloe Kaminski on 02-06-2023 Streptococcus.beta-hemo lytic Org specific cx Ql (Unsp spec) Negative Negative [facility] Streptococcus.beta-hemolytic Org specific cx Ql (Unsp spec)Ordered By: Khloe Kaminski on 02-06-2023 Interpretation and review of laboratory results Normal [facility] GCon 06-17-2022 CHLAMYDIA AMPLIFIED PROBE Negative Normal Negative [facility] Comment on above: Performed By: #### [id number] #### [place] [address] GC AMPLIFIED PROBE Negative Normal Negative [facility] Comment on above: Performed By: #### [id number] #### [place] [address] GCon 06-16-2022 CHLAMYDIA SOURCE ThinPrep Normal [facility] Comment on above: Performed By: #### [id number] #### [place] [address] GC SOURCE ThinPrep Normal [facility] Comment on above: Performed By: #### [id number] #### [place] [address] US Breast - left limitedon 0 10-15-2021 [...] Clinical Follow-Up BI-RADS: ACR BI-RADS 1: Negative [facility] Radiology Study observation (narrative) [facility] US Breast - left limitedOrde red By: Dimas Patel on 10-15-2021 [facility] Work Phone: CBC without differentialOrde red By: Lexi Lewis on 03-23-2021 Erythrocyte distribution width (RBC) [Ratio] 13.9 % 11.5 - 14.5 % [facility] Hematocrit (Bld) [Volume fraction] 28.6 % Low 33.6 - 46.8 % [facility] Hemoglobin (Bld) [Mass/Vol] 9.1 g/dL Low 11.7 - 15.8 g/dL [facility] Interpretation and review of laboratory results Abnormal [facility] MCH (RBC) [Entitic mass] 28.4 pg 27.5 - 32.3 pg [facility] MCHC (RBC) [Mass/Vol] 31.8 g/dL 30.7 - 35.5 g/dl [facility] MCV (RBC) [Entitic vol] 89.4 fL 80.2 - 99.0 fL [facility] Platelets (Bld) [#/Vol] 196.0 10*3/uL [facility] RBC (Bld) [#/Vol] 3.20 10*6/uL Low [facility] WBC LM Ql (Sput) 11.3 [facility] BUPRENORPHINE SCRN, UR, REFL EX QUANTOrdered By: Lexi Lewis on 03-22-2021 Buprenorphine Screen, UR Not detected CUTOFF <10 ng/mL [facility] Tox Message see below [facility] Comment on above: Notes: 1. SCREENING RESULTS SHOULD BE CONSIDERED PRESUMPTIVE UNLESS THE PRESENCE OF THE ANALYTE HAS BEEN CONFIRMED BY A REFERENCE LAB. 2. ALL DRUG GROUPS ARE ANALYZED ON URINE. [facility] CBCOrdered By: Lexi ambriz on 03-22-2021 Erythrocyte distribution width (RBC) [Ratio] 13.4 % 11.5 - 14.5 % [facility] Hematocrit (Bld) [Volume fraction] 35.4 % 33.6 - 46.8 % [facility] Hemoglobin (Bld) [Mass/Vol] 11.9 g/dL 11.7 - 15.8 g/dL [facility] Interpretation and review of laboratory results Abnormal [facility] MCH (RBC) [Entitic mass] 28.3 pg 27.5 - 32.3 pg [facility] MCHC (RBC) [Mass/Vol] 33.6 g/dL 30.7 - 35.5 g/dl [facility] MCV (RBC) [Entitic vol] 84.1 fL 80.2 - 99.0 fL [facility] Platelets (Bld) [#/Vol] 246.0 10*3/uL [facility] RBC (Bld) [#/Vol] 4.21 10*6/uL [facility] WBC LM Ql (Sput) 11.9 [facility] Syphilis Treponema AntibodyO rdered By: Lexi Lewis on 03-22-2021 Syphilis Treponema Antibody Non-Reactive Nonreactive [facility] Toxicology screen, urineOrde red By: Lexi Lewis on 03-22-2021 Amphetamines Screen method >1000 ng/mL Ql (U) Not detected CUTOFF <1000 ng/mL [facility] Barbiturates Screen method >200 ng/mL Ql (U) Not detected CUTOFF <200 ng/mL [facility] Benzodiazepines Ql (U) Not detected CUTOF F <200 ng/mL [facility] Benzoylecgonine Screen (U) [Mass/Vol] Not detected CUTOFF <300 ng/mL [facility] Cannabinoids Screen method >50 ng/mL Ql (U) Not detected CUTOFF <50 ng/mL [facility] Fentanyl Not detected CUTOFF 1.0 ng/mL [facility] Opiates Screen (U) [Mass/Vol] Not detected CUTOFF <300 ng/mL [facility] Phencyclidine (U) [Mass/Vol] Not detected CUTOFF <25 ng/mL [facility] Tox Message see below [facility] Comment on above: Notes: 1. SCREENING RESULTS SHOULD BE CONSIDERED PRESUMPTIVE UNLESS THE PRESENCE OF THE ANALYTE HAS BEEN CONFIRMED BY A REFERENCE LAB. 2. ALL DRUG GROUPS ARE ANALYZED ON URINE. [facility] Type and ScreenOrdered By: Cristina Lewis on 03-22-2021 ABO and Rh group Nom (Bld) Blood group O Rh(D) positive [facility] Blood group antibody screen.cells I+II+III Ql Negative [facility] Fern test, vaginal fluidOrde red By: Stacy Alonso on 03-02-2021 Fern Test NONE SEEN NONE SEEN [facility] CBCon 01-05-2021 Erythrocyte distribution width (RBC) [Ratio] 13.4 % 11.5 - 14.5 % [facility] Hematocrit (Bld) [Volume fraction] 34.0 % 33.6 - 46.8 % [facility] Hemoglobin (Bld) [Mass/Vol] 11.2 g/dL Low 11.7 - 15.8 g/dL [facility] Interpretation and review of laboratory results Abnormal [facility] MCH (RBC) [Entitic mass] 29.2 pg 27.5 - 32.3 pg [facility] MCHC (RBC) [Mass/Vol] 32.9 g/dL 30.7 - 35.5 g/dl [facility] MCV (RBC) [Entitic vol] 88.8 fL 80.2 - 99 fL [facility] Platelets (Bld) [#/Vol] 244.0 10*3/uL [facility] RBC (Bld) [#/Vol] 3.83 10*6/uL [facility] WBC LM Ql (Sput) 10.9 [facility] Glucose tolerance, 1 houron 01-05-2021 Glucose 1 Hr post 50 g glucose PO [Mass/Vol] 83 mg/dL [facility] Comment on above: REFERENCE-GLUCOSE 1 HR WITH DEXTROSE Values >140 mg/dL constitute a positive screen [facility] Syphilis Treponema Antibody (RPR)on 01-05-2021 Syphilis Treponema Antibody Nonreactive Nonreactive [facility] Comprehensive metabolic pane l aka [facility] 11-26-2020 Albumin [Mass/Vol] 3.7 g/dL 3.5 - 5 g/dL [facility] Alk Phos 78 U/L 24 - 126 U/L [facility] ALT [Catalytic activity/Vol] 12 U/L 4 - 35 U/L [facility] AST [Catalytic activity/Vol] 19 U/L 3 - 47 U/L [facility] Bilirubin [Mass/Vol] 0.6 mg/dL 0.2 - 1.6 mg/dL [facility] Calcium [Mass/Vol] 9.5 mg/dL 8.4 - 10. 4 mg/dL [facility] Chloride [Moles/Vol] 105 mmol/L 96 - 109 mmol/L [facility] CO2 [Moles/Vol] 21 mmol/L Low 22 - 30 mmol/L [facility] Comprehensive metabolic 2000 panel 0.46 mg/dL Low 0.52 - 1.04 mg/dL [facility] Glucose [Mass/Vol] 87 mg/dL 65 - 100 mg/dL [facility] Interpretation and review of laboratory results Abnormal [facility] Potassium [Moles/Vol] 4.2 mmol/L 3.6 - 5.1 mmol/L [facility] Protein [Mass/Vol] 6.8 g/dL 6.3 - 8.2 g/dL [facility] Sodium [Moles/Vol] 133 mmol/L Low 135 - 147 mmol/L [facility] Urea nitrogen [Mass/Vol] 7 mg/dL Low 8 - 20 mg/dL [facility] GLOMERULAR FILTRATION RATEon 11-26-2020 GFR/1.73 sq M.predicted MDRD (S/P/Bld) [Vol rate/Area] mL/min/{1.73_m2} [facility] Comment on above: To estimate the GFR [...] fraction] 4.3 % 0 - 6 % [facility] Comment on above: Reference Interval f or %A1c %A1c (NGSP) Interpretation <6.0% Non-Diabetic Range >6.5% Action Suggested . Hepatitis C antibodyon 11-26 HCV Ab Qn (S) Nonreactive Nonreactive [facility] [employer] LDH SERUMon 11-26-2020 LDH Pyruvate to lactate reaction [Catalytic activity/Vol] 513 U/L 308 - 626 U/L [facility] Otheron 11-26-2020 [facility] Type & Screen (must order with either panel)on 11-26-2020 ABO and Rh group Nom (Bld) O POS [facility] Blood group antibody screen.cells I+II+III Ql Negative [facility] Protein / creatinine ratio, urineon 11-26-2020 Protein (U) [Mass/Vol] 10 mg/dL 0 - 12 mg/dL [facility] Protein/Creatinine (U) [Mass ratio] 0.1 [facility] Ur Cre-Random 118.20 mg/dL NO NORMALS [facility] Uric acidon 11-26-2020 Urate [Mass/Vol] 3.0 mg/dL 2 - 7 mg/dL [facility] Vital Signs Date Time Vital Sign Value Performing Clinician Facility 02-07-2023 04:32-0400 Diastolic blood pressure 65 mm[Hg] Pose DO Work Phone: [facility] 02-07-2023 04:32-0400 Heart rate 69 /min Pose DO Work Phone: [facility] 02-07-2023 04:32-0400 Respiratory rate 18 /min Conchita Bomsta DO Work Phone: [facility] [employer] [facility] 02-07-2023 04:32-0400 SaO2% (BldA) [Mass fraction] 99 % Conchita Brownta Work Phone: [facility] 02-07-2023 04:32-0400 Systolic blood pressure 114 mm[Hg] Conchita Brownta DO Work Phone: [facility] 02-06-2023 23:14-0400 Body height 167.6 cm Conchita Brownta Work Phone: [facility] 02-06-2023 23:14-0400 Body mass index (BMI) [Ratio] 34.7 kg/m2 Conchita Brownta Work Phone: [facility] 02-06-2023 23:14-0400 Body temperature 98.91 [degF] Conchita Brownta Work Phone: [facility] 02-06-2023 23:14-0400 Body weight 97.52 kg Conchita Carrion DO Work Phone: [facility] 03-24-2021 08:00-0400 Body temperature 98.29 [degF] Lexi Lewis MD Work Phone: [facility] 03-24-2021 08:00-0400 Diastolic blood pressure 55 mm[Hg] Lexi Lewis MD Work Phone: [facility] 03-24-2021 08:00-0400 Heart rate 76 /min Lexi Lewis MD Work Phone: [facility] 03-24-2021 08:00-0400 Respiratory rate 16 /min Lexi Lewis MD Work Phone: [facility] 03-24-2021 08:00-0400 Systolic blood pressure 115 mm[Hg] Lexi Lewis MD Work Phone: [facility] 03-24-2021 04:00-0400 SaO2% (BldA) [Mass fraction] 97 % Lexi Lewis MD Work Phone: [facility] [employer] [facility] 03-21-2021 20:37-0400 Body height 167.6 cm Lexi Lewis MD Work Phone: [facility] 03-21-2021 20:37-0400 Body mass index (BMI) [Ratio] 39.71 kg/m2 Lexi Lewis MD Work Phone: [facility] 03-21-2021 20:37-0400 Body weight 111.58 kg Lexi Lewis MD Work Phone: [facility] [employer] [facility] 03-06-2021 21:50-0400 Diastolic blood pressure 57 mm[Hg] Stacy Alonso MD Work Phone: [facility] [employer] [facility] 03-06-2021 21:50-0400 Heart rate 77 /min Stacy Alonso MD Work Phone: [employer] [facility] 03-06-2021 21:50-0400 Systolic blood pressure 120 mm[Hg] Stacy Alonso MD Work Phone: [employer] [facility] 03-06-2021 20:50-0400 Body height 167.6 cm Stacy Alonso MD Work Phone: [facility] [employer] [facility] 03-06-2021 20:50-0400 Body mass index (BMI) [Ratio] 38.58 kg/m2 Stacy Alonso MD Work Phone: [phone] [address] 03-06-2021 20:50-0400 Body weight 108.41 kg Stacy Alonso MD Work Phone: [facility] [employer] [facility] 03-06-2021 20:50-0400 Respiratory rate 20 /min Stacy Alonso MD Work Phone: [facility] 03-06-2021 20:48-0400 Body temperature 98.01 [degF] Stacy Alonso MD Work Phone: [facility] [employer] [facility] 03-02-2021 02:04-0400 Diastolic blood pressure 69 mm[Hg] Stacy Alonso MD Work Phone: [facility] [employer] [facility] 03-02-2021 02:04-0400 Heart rate 88 /min Stacy Alonso MD Work Phone: [facility] 03-02-2021 02:04-0400 Systolic blood pressure 131 mm[Hg] Stacy Alonso MD Work Phone: [facility] 03-02-2021 01:37-0400 Body height 167.6 cm Stacy Alonso MD Work Phone: [employer] [facility] 03-02-2021 01:37-0400 Body mass index (BMI) [Ratio] 38.41 kg/m2 Stacy Alonso MD Work Phone: [phone] [address] 03-02-2021 01:37-0400 Body temperature 98.91 [degF] Stacy Alonso MD Work Phone: [phone] [address] 03-02-2021 01:37-0400 Body weight 107.96 kg Stacy Alonso MD Work Phone: [employer] [facility] 03-02-2021 01:37-0400 Respiratory rate 20 /min Stacy Alonso MD Work Phone: [facility] 02-03-2021 21:58-0400 Diastolic blood pressure 77 mm[Hg] Stacy Alonso MD Work Phone: [phone] [address] 02-03-2021 21:58-0400 Heart rate 91 /min Stacy Alonso MD Work Phone: [facility] 02-03-2021 21:58-0400 Respiratory rate 18 /min Stacy Alonso MD Work Phone: [facility] 02-03-2021 21:58-0400 Systolic blood pressure 128 mm[Hg] Stacy Alonso MD Work Phone: [facility] 08-14-2020 09:19-0500 Body Temperature 98.49 [degF] [facility] 08-14-2020 06:50-0500 BMI (Body Mass Index) 32.28 kg/m2 Aliya [facility] 08-14-2020 06:50-0500 Body weight 90.72 kg [facility]ya [facility] 08-14-2020 06:50-0500 BP Diastolic 74 mm[Hg] [facility] 08-14-2020 06:50-0500 BP Systolic 135 mm[Hg] [facility]ya [facility] 08-14-2020 06:50-0500 Height 167.6 cm Aliya [facility] 08-14-2020 06:50-0500 Pulse (Heart Rate) 82 /min [facility] 08-14-2020 06:50-0500 Pulse Oximetry 99 % Aliya Cao [facility] 08-14-2020 06:50-0500 Respiratory Rate 18 /min Aliya Cao [facility] Encounters Encounter Date Encounter Type Care Provider Facility Start: 02-07-2023 End: 02-07-2023 Emergency department patient visit GLORIA [facility] Start: 02-07-2023 End: 02-07-2023 Emergency department patient visit Conchita Carrion DO Work Phone: [facility] Comment on above: Sore throat (Primary Dx) Start: 06-20-2022 ambulatory BRENDAN PEREZ [facility] Start: 06-14-2022 End: 06-14-2022 ambulatory BELLE [facility] Start: 06-14-2022 Encounter for gynecological examination (general) (routine) without abnormal findings [facility] Start: 06-14-2022 End: 06-15-2022 ambulatory BELLE [facility] Start: 02-06-2022 End: 02-06-2022 Subsequent hospital visit by physician Paulo Upton DO Work Phone: [facility] Start: 02-04-2022 End: 02-04-2022 Subsequent hospital visit by physician Kym Gutierrez APRN [employer] Work Phone: [facility] Comment on above: URI with cough and c ongestion Start: 10-15-2021 End: 10-15-2021 Subsequent hospital visit by physician Marianna Abbasi APRN, CNP Work Phone: [facility] Comment on above: Breast pain, left Start: 06-08-2021 End: 06-08-2021 Subsequent hospital visit by physician Job Fitzgerald MD Work Phone: [facility] Start: 03-21-2021 End: 03-24-2021 Evaluation and management of inpatient Lexi Lewis MD Work Phone: [facility] ([facility]) Comment on above: Encounter for induct ion of labor (Primary Dx) Start: 03-06-2021 End: 03-06-2021 Subsequent hospital visit by physician Stacy Alonso MD Work Phone: [facility] (2 [place]) Start: 03-02-2021 End: 03-02-2021 Subsequent hospital visit by physician Stacy Alonso MD Work Phone: [facility] (2 [place]) Start: 02-24-2021 End: 02-24-2021 Subsequent hospital visit by physician Nicole Rodarte DO Work Phone: [facility] Comment on above: 36 weeks gestation o f ; Chlamydia trachomatis infection in mother during second trimester of Start: 02-03-2021 End: 02-03-2021 Subsequent hospital visit by physician Stacy Alonso MD Work Phone: [facility] (2 [place]) Start: 01-05-2021 End: 01-05-2021 Subsequent hospital visit by physician Nicole Rodarte Work Phone: [facility] Comment on above: 27 weeks gestation o f Start: 12-21-2020 End: 12-21-2020 Subsequent hospital visit by physician Nicole Rodarte Work Phone: [facility] Comment on above: 27 weeks gestation o f ; Chlamydia trachomatis infection in mother during second trimester of Start: 11-26-2020 End: 11-26-2020 Subsequent hospital visit by physician Nicole Rodarte Work Phone: [facility] Comment on above: Late care a ffecting in second trimester Start: 11-26-2020 End: 11-26-2020 Subsequent hospital visit by physician Nicole Rodarte Work Phone: [facility] Comment on above: Late care a ffecting in second trimester; History of low potassium; Elevated blood pressure reading Start: 08-14-2020 End: 08-14-2020 Emergency department patient visit Aliya Cao Work Phone: [facility] Comment on above: Pain, dental (Primar y Dx); Jaw swelling Procedures Date Procedure Procedure Detail Performing Clinician Start: 02-06-2023 Iadna streptococcus group a amplified probe tq Conchita [facility] Work Phone: Start: 06-14-2022 Microscopic observat ion [Identifier] in Cervix by Cyto stain [facility] Work Phone: Start: 10-15-2021 Us breast uni real t duane with image limited Marianna Abbasi APRN [employer]IN PAINTER Work Phone: Start: 03-23-2021 Blood count complete [...] DTAP/TDAP/TD VACCINE (2 - Td or Tdap) [facility] Start: 03-04-2031 Diphtheria + pertuss is + tetanus vaccine (product) DTAP/TDAP/TD VACCINE (2 - Td or Tdap) [facility] Start: 06-14-2025 Screening for malign ant neoplasm of cervix PAP SMEAR [facility] Start: 06-20-2023 End: 06-20-2023 Patient encounter procedure 06/20/2023 Office Visit Obstetrics and Gynecology Belle Ochoa APRN [employer]IN PA[employer] [address] [id number] [facility] Start: 06-15-2023 ANNUAL WELLNESS VISIT ANNUAL WELLNES S VISIT [facility] Start: 06-14-2023 CHLAMYDIA SCREENING CHLAMYDIA SCREEN [facility] Start: 06-02-2023 Influenza vaccinatio n given INFLUENZA VACCINE (Season Ended) [facility] Start: 06-02-2022 Influenza vaccinatio n given INFLUENZA VACCINE (Season Ended) [facility] Start: 05-25-2022 End: 05-25-2022 Patient encounter procedure 05/25/2022 Office Visit Obstetrics and Gynecology Belle Ochoa APRN [employer]IN PAINTER [address] [place] [address] [facility] Start: 02-24-2022 CHLAMYDIA SCREENING CHLAMYDIA SCREEN [facility] Start: 12-21-2021 CHLAMYDIA SCREENING CHLAMYDIA SCREEN [facility] Start: 11-26-2021 CHLAMYDIA SCREENING CHLAMYDIA SCREEN [facility] Start: 10-18-2021 End: 10-18-2021 Patient encounter procedure 10/18/2021 Office Visit Dentistry Alka Adams DDS [address] [place] [address] [facility] Start: 2021 Screening for malign ant neoplasm of cervix PAP SMEAR [facility] Start: 07-22-2021 End: 07-22-2021 Patient encounter procedure 07/22/2021 Office Visit Dentistry Alka Adams DDS [address] [place] [address] [facility] Start: 06-02-2021 Influenza vaccinatio n given [facility] Start: 05-12-2021 End: 05-12-2021 ambulatory 05/12/2021 Visit Obstetrics and Gynecology Nicole Rodarte DO [address] [facility] [address] [place] [address] [phone] [facility] Start: 03-10-2021 End: 03-10-2021 Patient encounter procedure 03/10/2021 Routine Obstetrics and Gynecology Nicole Rodarte DO [address] [place] [address] [facility] Start: 03-04-2021 End: 03-04-2021 Patient encounter procedure 03/04/2021 Routine Obstetrics and Gynecology Nicole Rodarte DO [address] [place] [address] [facility] Start: 02-24-2021 End: 02-24-2021 Patient encounter procedure 02/24/2021 Routine Obstetrics and Gynecology Nicole Rodarte DO [address] [place] [address] [facility] Start: 02-11-2021 End: 02-11-2021 Patient encounter procedure 02/11/2021 Routine Obstetrics and Gynecology Nicole Rodarte DO [address] [place] [address] [facility] Start: 01-11-2021 End: 01-11-2021 Routine 01/11/2021 Routine Obstetrics and Gynecology Nicole Rodarte DO [address] [place] [address] [facility] Start: 12-24-2020 End: 12-24-2020 Routine 12/24/2020 Routine Obstetrics and Gynecology Nicole Rodarte DO [address] [place] [address] [facility] Start: 06-02-2020 Influenza vaccinatio n given INFLUENZA VACCINE (#1) [facility] Start: 2018 ANNUAL WELLNESS VISIT ANNUAL WELLNES S VISIT [facility] Start: 2016 CHLAMYDIA SCREENING CHLAMYDIA SCREEN ING [facility] Start: 2012 Adult depression screening assessment DEPRESSION SCREENING [facility] Start: 2012 Depression screening using PHQ-9 (Patient Health Questionnaire 9) score DEPRESSION SCREENING [facility] Start: 2011 Diphtheria + pertuss is + tetanus vaccine (product) DTAP/TDAP/TD VACCINE (1 - Tdap) [facility] Start: 2011 Human papilloma viru s vaccination given HPV VACCINES (GARDASIL) (1 - 2-dose series) [facility] Start: 2011 Vaccination for gabe n papillomavirus HPV VACCINES (GARDASIL) (1 - 2-dose series) [facility] Start: 2005 COVID-19 VACCINE (1) COVID-19 VACCIN E (1) [facility] Start: 02-24-2001 COVID-19 VACCINE (#1) COVID-19 VACCI NE (#1) [facility] End: 11-26-2020 Chlamydia trachomatis+Neisseria gonorrhoeae rRNA [Presence] in Cervix by Probe GC &Chlamydia Microbiology Routine Late care affecting in second trimester 1 Occurrences starting 11/26/2020 until 11/26/2020 [facility] Comment on above: 1 Occurrences starti ng 11/26/2020 until 11/26/2020 Chlamydia trachomatis+Neisseria gonorrhoeae rRNA [Presence] in Cervix by Probe [facility] End: 12-21-2020 Chlamydia trachomatis+Neisseria gonorrhoeae rRNA [Presence] in Cervix by Probe GC & CHLAMYDIA AMPLIFIED PROBE Microbiology Routine 27 weeks gestation of Chlamydia trachomatis infection in mother during second trimester of 1 Occurrences starting 12/21/2020 until 12/21/2020 [facility] Comment on above: 1 Occurrences starti ng 12/21/2020 until 12/21/2020 End: 02-24-2021 Chlamydia trachomatis+Neisseria gonorrhoeae rRNA [Presence] in Cervix by Probe GC & Chlamydia Amplified Probe Microbiology Routine 36 weeks gestation of Chlamydia trachomatis infection in mother during second trimester of 1 Occurrences starting 02/24/2021 until 02/24/2021 [facility] Comment on above: 1 Occurrences starti ng 02/24/2021 until 02/24/2021 End: 06-08-2021 COVID-19 (2019 NOVEL CORONAVIRUS) [facility] Work Phone: Comment on above: One Time for 1 Occur rences starting 06/08/2021 until 06/08/2021 End: 11-26-2020 Drug Screen Urine Extended Panel Drug Screen Urine Extended Panel Lab Routine Late care affecting in second trimester 1 Occurrences starting 11/26/2020 until 11/26/2020 [facility] Comment on above: 1 Occurrences starti ng 11/26/2020 until 11/26/2020 Drug Screen Urine Extended Panel Drug Screen Urine Extended Panel Lab Routine Late care affecting in second trimester 11/26/2020 3:23 PM EST Adjug System nonstress test nonst ress test OB Routine Daily 0500 until discontinued starting 03/07/2021 [facility] Comment on above: Daily 0500 until dis continued starting 03/07/2021 End: 02-24-2021 [facility] Strep Screen Genital Group B Strep Screen Microbiology Routine 36 weeks gestation of 1 Occurrences starting 02/24/2021 until 02/24/2021 [facility] Comment on above: 1 Occurrences starti ng 02/24/2021 until 02/24/[address] p Screen Genital Group B Strep Screen Microbiology Routine 36 weeks gestation of 02/24/2021 10:07 PM EDT [facility] End: 03-06-2021 POCT Nitrazine Test POCT Nitrazine Test OB Routine One Time for 1 Occurrences starting 03/06/2021 until 03/06/2021 [facility] [employer] Comment on above: One Time for 1 Occur rences starting 03/06/2021 until 03/06/2021 PANEL WITH HIV Panel with HIV Lab Routine Late care affecting in second trimester 11/26/2020 3:26 PM EST [facility] End: 02-04-2022 SARS-COV-2, [facility] [employer] Work Phone: Comment on above: One Time for 1 Occur rences starting 02/04/2022 until 02/04/2022 End: 02-06-2022 SARS-COV-2, [employer] Work Phone: Comment on above: One Time for 1 Occur rences starting 02/06/2022 until 02/06/2022 End: 11-26-2020 Urine culture and sensitivity Urine culture and sensitivity Microbiology Routine Late care affecting in second trimester 1 Occurrences starting 11/26/2020 until 11/26/2020 [facility] Comment on above: 1 Occurrences starti ng 11/26/2020 until 11/26/2020 Urine culture and sensitivity Urine culture and sensitivity Microbiology Routine Late care affecting in second trimester 11/26/2020 3:23 PM EST [facility] Immunizations Immunization Date Immunization Notes Care Provider Fa cility 03-04-2021 tetanus toxoid, reduced diphtheria toxoid, and acellular pertussis vaccine, adsorbed Stacy Alonso MD Work Phone: [facility] 08-26-2008 influenza virus vaccine, unspecified formulation Lexi Lewis MD Work Phone: [facility] NEGATED: Highlighted row has not occurred!03-22-2021 measles, mumps and rubella virus vaccine Lexi Lewis MD Work Phone: [facility] Comment on above: Deferred: - immune Payers Date Payer Category Payer Medicaid [id number] 2020 Medicaid [facility] [id number] 2020-Present [phone] [place] [address] Medicaid [id number] 2000 Unknown [id number] 2000 Unknown [id number] 2000 Unknown [id number] 2000 Unknown [id number] Unknown [id number] Social History Date Type Detail Facility Start: 08-14-2020 End: 02-04-2022 Tobacco smoking status NHIS Former smoker [facility] Start: 08-14-2020 End: 06-14-2022 Tobacco use and exposure Never used [facility] Start: 2000 Sex Assigned At Not on file [facility] Start: 01-27-2023 End: 02-07-2023 Exposure to SARS-CoV-2 (event) Not sure [facility] End: 11-02-2020 History of tobacco use Current smoker [facility] Start: 11-26-2020 End: 02-04-2022 Alcohol intake Ex-drinker (finding) [facility] Start: 06-29-2020 [facility] Exposure to SARS-CoV -2 (event) Unable to assess [facility] Start: 2000 Sex Assigned At Female [facility] Work Phone: Start: 09-21-2021 End: 06-14-2022 Tobacco smoking status NHIS Current every day smoker [facility] Work Phone: History of tobacco use Tobacco U se Types Packs/Day Years Used Date Smoking Tobacco: Every Day E-Cig/Vaping Smokeless Tobacco: Never [facility] Start: 02-07-2023 Alcohol intake Current drinke r of alcohol (finding) [facility] Start: 06-14-2022 Alcohol Comment occ [facility] Clinical Notes 02-03-2021 to 02-07-2023 Ava Lassiter [...] arm, pt ambulates to lobby with ease. [facility] 02-07-2023 Emergency department Note Discharge instructions given [...] distress during triage. documented in this encounter [facility] 02-07-2023 Emergency department Note Pt ambulates to [...] unlabored, airway patent, skin pwd, NAD noted. [facility] 02-06-2023 Emergency department Triage note Pt arrives to the ED for throat tightness. Onset over last 1 1/2 hour. Denies any throat pain, just tightness. Denies any known for cause. Pt A & O. Resp reg. Speech is clear. No distress during triage. [facility] 10-15-2021 Note CLINICAL HISTORY: Patient is a [...] account for the patient's pain. Normal examination. [facility] 03-24-2021 Miscellaneous Notes Dischg'd to home in [...] assessment. Mother is found in room with infant and nurse, feeding at breast with assistance. [...] page for further assistance as needed. 03/22/21 6712 Consult Initial assessment Previous n/a Gestational Age (wk) 40 wk Time Spent (min) 15-30 min Assessment Breast size average;soft Left nipple appearance intact;erect Nipple size average Left feeding position cross-cradle;football hold Effort to latch gentle stimulation needed for infant to latch Breastfeed results good Breast Surgery no Breast feeding Assistance Device Lanolin Social Service OB Consult Eva Granados 2000 OB Social Work Consult Reason for Referral: CHANDA has hx of anx Interview Participants: MOB Support System Father of Baby: Yes Family Support: Yes Marital Status: Single Patient Information Employment: yes Student: no Household Size: 3 Other Children in home: 0 Inspector Firearms / Family Physician: Dr Porras Problem List: Psychiatric History Community Agencies Involved: Wic Assessment:: MOB has hx of anx. Reports that she gets nervous but is okay. MOB reports she has hx of dep but hasn't had it [id number]. PPD handout provided with verbal edu on [...] not included. Rosina Vergara Social Worker [employer] Admissions Representative D/C Planning Signed Note Time: 03/22/21 1509 [...] needs. Vaginal Delivery Note Eva Granados 2000 [id number] 20 y.o. at 40w0d gestation Delivering Tile Layer: Lexi Lewis Primary Tile Layer: Lexi Lewis Pre-Delivery Diagnosis: IUP at 40 [...] applied. SVE . documented in this encounter [facility] 03-24-2021 Hospital course Narrative Obstetrical Discharge Summary Eva Granados 2000 [id number] 03/21/2021 Delivering OB Clinician: Lexi Lewis MD [...] Nicole Rodarte 03/24/2021 documented in this encounter [facility] 03-24-2021 History of Presen t illness Narrative [...] 2. Routine care documented in this encounter [facility] 03-22-2021 History and physical note This note [...] for : 37w US: vertex, EFW 3028g ([id number]) 42%ile, SUGAR 15.0cm, post gr3 placenta Late [...] +accelerations, intermittent early, late, and variable decelerations [place]: q 1-3 minutes VE: Complete/+2 station with artificial rupture performed for clear fluid Eva Granados 2000 [id number] 20 y.o. at 40w1d with EDC of Estimated Date of Delivery: 03/22/21 who is being admitted for induction of labor. Her current obstetrical history is remarkable for: 37w US: vertex, EFW 3028g ([id number]) 42%ile, SUGAR 15.0cm, post gr3 placenta Late [...] cephalic FHTs: To be assessed on arrival [place]: To be assessed on arrival Cervix: Last in office Dilation: 1cm Effacement: 50% Station: -3 Damon score: 3 Labs GBS neg Rh pos Impression: 20 y.o. at 40w1d Induction of labor Late PNC at 23w Chlamydia at [facility] but 36w recheck neg GBS neg Rh pos Plan: 1. ATSO [place] 2. CEFM + [place] 3. Admission labs 4. Suspect some component of mild blood pressure elevations related to anxiety as happened at [facility] and when seeing a different provider last week. Will update preeclampsia labs on admission as a precautions. 5. Cervical ripening with cytotec, plan to follow with pitocin per protocol once Damon score is more favorable 6. Pain control PRN documented in this encounter [facility] 03-06-2021 Miscellaneous Notes Pt is discharged home [...] with monitors applied. documented in this encounter [facility] 03-06-2021 Hospital Discharg e Nadege Fisher RN [...] not have a private physician call the [facility] right away at or . Contractions [...] Call according to your Doctor s instructions. [facility] is located at [facility] on the [facility]. Warning Signals Possible Complications in Call if: [...] (use kick count). documented in this encounter [facility] 03-02-2021 Miscellaneous Notes EFM discontinued, pt given [...] pt states understanding. documented in this encounter [facility] 02-03-2021 Miscellaneous Notes Patient provided with verbal [...] applied, education provided. documented in this encounter [facility] 02-03-2021 Hospital Discharg e instructions Joreg Moreira RN - 02/03/2021 Weeks 32 to [...] Hydrocortisone. Ask your doctor about taking an [id number] stool softener. Consider Experts recommend that women [...] may help to think about your personal, orthodoxy, and family traditions. You get to decide if you will keep your son's penis natural or if he will be circumcised. If you decide that you would like to have your baby circumcised, talk with your doctor. You can share your concerns about pain. And you can discuss your preferences for anesthesia. Where can you learn more? Go to https://www.[employer].net/pat ientEd Enter X711 in the search box to learn more about Weeks 32 to 34 of Your : Care Instructions. Current as of: July 09, 2020 Content Version: 12.8 [employer]. Care instructions adapted under license by your healthcare professional. If you have questions about a medical condition or this instruction, always ask your healthcare professional. [employer] disclaims any warranty or liability for your use of this information. documented in this encounter [facility] Evaluation note Diagnosis 36 weeks gestation of state, incidental Chlamydia trachomatis infection in mother during second trimester of documented in this encounter [facility]* Diagnosis (spontaneous vaginal delivery)- Primary Normal delivery Encounter for induction of labor Normal labor Chlamydia trachomatis infection in mother during second trimester of Late care affecting in second trimester [facility] Diagnosis Breast pain, left Mastodynia documented [facility]* Diagnosis URI with cough and congestion [facility] Diagnosis Sore throat- Primary Acute pharyngitis [facility]* Instructions* Tamiko Melo RN - 03/02/2021 Signs and Symptoms of Labor This is a guide for you about the signs of true labor. If you have any of these signs before 36 weeks of (nine months), please call your private physician. If you do not have a private physician call the [facility] Nurse[facility] right away at or . Contractions [...] Call according to your Doctor s instructions. [facility] is located at [facility] on the [facility]. Warning Signals Possible Complications in Call if: [...] movement (use kick count). [facility]* Instructions* Maile Moses RN - [...] eating high-fiber foods. Ask your doctor about ppqi-dnx-[id number] stool softeners. Cleanse yourself with a gentle [...] a few days after delivery. Plan for child care centre director if you have other children. Stay flexible [...] Where can you learn more? Go to https://www.[employer].net/patientEd Enter A461 in the search box to learn more about After Your Delivery (the Period): CareInstructions. Current as of: July 09, 2020 Content Version: 12.9 [employer]. Care instructions adapted under license by your healthcare professional. If you have questions about a medical condition or this instruction, always ask your healthcare professional. [employer] disclaims any warranty or liability for your use of this information. * Attachments The following attachments cannot be sent through Care Everywhere. * (Lithuanian Vietnamese) [facility]* Attachments The following attachments cannot be sent through Care Everywhere. * Sore Throat (Lithuanian Vietnamese) [facility] Procedure Authorization (Routine) - Closed Specialty Diagnoses / Procedures Referred By Lilo t Referred To Contact Diagnoses Breast pain, left Procedures US Breast Left Limited Marianna Abbasi APRN [employer] [address] [place] [address] [facility] [address] [address] Referral ID Status Reason Start Date Expiration Date Visits Re quested Visits Authorized [id number] Closed 09/21/2021 10/22/2022 1 1 [facility] for visit Narrative* Procedure Authorization (Routine) - Closed Specialty Diagnoses / Procedures Referred By Contac t Referred To Contact Diagnoses Breast pain, left Procedures US Breast Left Limited Marianna Abbasi APRN [employer] PAINTER [address] [place] [address] [employer] [address] [address] Referral ID Status Reason Start Date Expiration Date Visits Re quested Visits Authorized [id number] Closed 09/21/2021 10/22/2022 1 1 [facility] Reason for Referral Status Reason Specialty Diagnoses / Procedures Referred By Contact Referred To Contact [facility] / Dentistry Diagnoses Pain, dental Jaw swelling Aliya Cao DO [address] [place] [address] [facility] [address] [place] [address] Status Reason Specialty Diagnoses / Procedures Referred By Contact Referred To Contact [facility] Diagnoses Pain, dental Jaw swelling Aliya Cao DO [address] [place] [address] [facility] [address] [facility] [address] [facility] [place] [place] [address] Discharge Instructions * Instructions* Aliya Cao DO - 08/14/2020 No driving or operating heavy machinery while taking norco - no extra tylenol * Attachments The following attachments cannot be sent through Care Everywhere. * Tooth and Gum Pain (Lithuanian Vietnamese) documented in this encounter Assessments Diagnosis Pain, [...] FoundDocuments on File Type Date Recorded Patient Signal Tester Expl anation Advance Directives and Living Will Power of Furnace Mechanic Helper Documents on File Type Date Recorded Patient Signal Tester Expl anation Advance Directives and Living Will Power of Furnace Mechanic Helper Latest Code Status on File Code Status [...] Documents on File Type Date Recorded Patient Signal Tester Expl anation Advance Directives and Living Will Power of Furnace Mechanic Helper DNR Documentation Latest Code Status on File Code Status Date Activated Date Inactivated Comments Full Code 03/22/2021 5:16 AM 03/24/2021 7:51 PM Full Code 03/22/2021 1:13 AM 03/22/2021 5:16 AM Full Code 03/21/2021 9:27 PM 03/22/2021 1:13 AM Full Code 03/19/2021 11:50 AM 03/21/2021 9:27 PM Full Code 03/06/2021 9:45 PM 03/07/2021 4:11 AM Documents on File Type Date Recorded Patient Signal Tester Expl anation Advance Directives and Living Will Power of Furnace Mechanic Helper DNR Documentation Summary Purpose Family History No [...] (Given - Provider: Maile Moses RN) TdaP tkuetnc-ybilbvgspn-zwlv lular pertussis (BOOSTRIX) injection 0.5 mL 0.5 [...] Care Teams (unrecognized sec tion and content) Psychologist Clinical Relationship Specialty Start Date End Date Pcp, None [address] [place] [address] PCP - General 08/14/20 INFORMATION SOURCE (unrecogn ized section and content) DATE CREATED AUTHOR 03/13/2023 [facility] FOR RECORDS PERTAINING TO [...] BE BASED ON THE PRIMARY CLINICAL RECORDS. [facility] [employer] [facility]. provides no warranty or guarantee of the accuracy or completeness of information in this document.
== END 2024-05-24 16:35 | disposition home or self-care (01) ==
LOC: RAD 16:35
PROVIDERS: PCP Nurse Practitioner Family; Visit Provider Nurse Practitioner Family
DX: M54.9 Dorsalgia, unspecified (principal)
CPT/HCPCS: 72070

== ENCOUNTER 2024-11-14 22:00 | Emergency (ER) | payer OTHER, SELFPAY ==
[2024-11-14 22:03] VITALS: BP 148/79; PULSE 84; TEMP 36.8; O2SAT 100; BMI 27.4
--- OUTSIDE RECORDS SUMMARY | 2024-11-14 22:15 | XMS_ITS | CCD ---
Author Organization [facility] Care Team Providers Care Senior Sales Operations Manager Name Role Phone Pcp, None Primary Care [...] oral solution (3 sources) alpha-Adrenergic Agonist, Uncompetitive A-djzetz-U-aspart ate Receptor Antagonist, Sigma-1 Agonist Start: 02-04-2022 [...] 23 STREP A MOLECULAR Negative Normal Negative [facility] Comment on above: Performed By: #### [id number] #### [place] [address] [place] Strep AOrdered By: Khloe Kaminski on 02-06-2023 Streptococcus.beta-hemo lytic Org specific cx Ql (Unsp spec) Negative Negative [facility] Streptococcus.beta-hemolytic Org specific cx Ql (Unsp spec)Ordered By: Khloe Kaminski on 02-06-2023 Interpretation and review of laboratory results Normal [facility] GCon 06-17-2022 CHLAMYDIA AMPLIFIED PROBE Negative Normal Negative [facility] Comment on above: Performed By: #### [id number] #### [place] [address] GC AMPLIFIED PROBE Negative Normal Negative [facility] Comment on above: Performed By: #### [id number] #### [place] [address] GCon 06-16-2022 CHLAMYDIA SOURCE ThinPrep Normal [facility] Comment on above: Performed By: #### [id number] #### [place] [address] GC SOURCE ThinPrep Normal [facility] Comment on above: Performed By: #### [id number] #### [place] [address] US Breast - left limitedon 0 10-15-2021 [...] Clinical Follow-Up BI-RADS: ACR BI-RADS 1: Negative [facility] Radiology Study observation (narrative) [facility] US Breast - left limitedOrde red By: Dimas Patel on 10-15-2021 [employer] Work Phone: CBC without differentialOrde red By: Lexi Lewis on 03-23-2021 Erythrocyte distribution width (RBC) [Ratio] 13.9 % 11.5 - 14.5 % [facility] Hematocrit (Bld) [Volume fraction] 28.6 % Low 33.6 - 46.8 % [facility] Hemoglobin (Bld) [Mass/Vol] 9.1 g/dL Low 11.7 - 15.8 g/dL [facility] Interpretation and review of laboratory results Abnormal [facility] MCH (RBC) [Entitic mass] 28.4 pg 27.5 - 32.3 pg [facility] MCHC (RBC) [Mass/Vol] 31.8 g/dL 30.7 - 35.5 g/dl [facility] MCV (RBC) [Entitic vol] 89.4 fL 80.2 - 99.0 fL [facility] Platelets (Bld) [#/Vol] 196.0 10*3/uL [facility] RBC (Bld) [#/Vol] 3.20 10*6/uL Low [facility] WBC LM Ql (Sput) 11.3 High [facility] BUPRENORPHINE SCRN, UR, REFL EX QUANTOrdered By: Lexi Lewis on 03-22-2021 Buprenorphine Screen, UR Not detected CUTOFF <10 ng/mL [facility] Tox Message see below [employer] [facility] Comment on above: Notes: 1. SCREENING RESULTS SHOULD BE CONSIDERED PRESUMPTIVE UNLESS THE PRESENCE OF THE ANALYTE HAS BEEN CONFIRMED BY A REFERENCE LAB. 2. ALL DRUG GROUPS ARE ANALYZED ON URINE. [facility] CBCOrdered By: Lexi ambriz on 03-22-2021 Erythrocyte distribution width (RBC) [Ratio] 13.4 % 11.5 - 14.5 % [facility] Hematocrit (Bld) [Volume fraction] 35.4 % 33.6 - 46.8 % [facility] Hemoglobin (Bld) [Mass/Vol] 11.9 g/dL 11.7 - 15.8 g/dL [facility] Interpretation and review of laboratory results Abnormal [facility] MCH (RBC) [Entitic mass] 28.3 pg 27.5 - 32.3 pg [facility] MCHC (RBC) [Mass/Vol] 33.6 g/dL 30.7 - 35.5 g/dl [facility] MCV (RBC) [Entitic vol] 84.1 fL 80.2 - 99.0 fL [facility] Platelets (Bld) [#/Vol] 246.0 10*3/uL [facility] RBC (Bld) [#/Vol] 4.21 10*6/uL [facility] WBC LM Ql (Sput) 11.9 High [facility] Syphilis Treponema AntibodyO rdered By: Lexi Lewis on 03-22-2021 Syphilis Treponema Antibody Non-Reactive Nonreactive [facility] Toxicology screen, urineOrde red By: Lexi Lewis on 03-22-2021 Amphetamines Screen method >1000 ng/mL Ql (U) Not detected CUTOFF <1000 ng/mL [facility] Barbiturates Screen method >200 ng/mL Ql (U) Not detected CUTOFF <200 ng/mL [facility] Benzodiazepines Ql (U) Not detected CUTOF F <200 ng/mL [facility] Benzoylecgonine Screen (U) [Mass/Vol] Not detected CUTOFF <300 ng/mL [facility] Cannabinoids Screen method >50 ng/mL Ql (U) Not detected CUTOFF <50 ng/mL [facility] Fentanyl Not detected CUTOFF 1.0 ng/mL [facility] Opiates Screen (U) [Mass/Vol] Not detected CUTOFF <300 ng/mL [facility] Phencyclidine (U) [Mass/Vol] Not detected CUTOFF <25 ng/mL [facility] Tox Message see below [facility] Comment on above: Notes: 1. SCREENING RESULTS SHOULD BE CONSIDERED PRESUMPTIVE UNLESS THE PRESENCE OF THE ANALYTE HAS BEEN CONFIRMED BY A REFERENCE LAB. 2. ALL DRUG GROUPS ARE ANALYZED ON URINE. [facility] Type and ScreenOrdered By: Cristina Lewis on 03-22-2021 ABO and Rh group Nom (Bld) Blood group O Rh(D) positive [facility] Blood group antibody screen.cells I+II+III Ql Negative [facility] Fern test, vaginal fluidOrde red By: Stacy Alonso on 03-02-2021 Fern Test NONE SEEN NONE SEEN [facility] CBCon 01-05-2021 Erythrocyte distribution width (RBC) [Ratio] 13.4 % 11.5 - 14.5 % [facility] Hematocrit (Bld) [Volume fraction] 34.0 % 33.6 - 46.8 % [facility] Hemoglobin (Bld) [Mass/Vol] 11.2 g/dL Low 11.7 - 15.8 g/dL [facility] Interpretation and review of laboratory results Abnormal [facility] MCH (RBC) [Entitic mass] 29.2 pg 27.5 - 32.3 pg [facility] MCHC (RBC) [Mass/Vol] 32.9 g/dL 30.7 - 35.5 g/dl [facility] MCV (RBC) [Entitic vol] 88.8 fL 80.2 - 99 fL [facility] Platelets (Bld) [#/Vol] 244.0 10*3/uL [facility] RBC (Bld) [#/Vol] 3.83 10*6/uL [facility] WBC LM Ql (Sput) 10.9 High [facility] Glucose tolerance, 1 houron 01-05-2021 Glucose 1 Hr post 50 g glucose PO [Mass/Vol] 83 mg/dL [facility] Comment on above: REFERENCE-GLUCOSE 1 HR WITH DEXTROSE Values >140 mg/dL constitute a positive screen [facility] Syphilis Treponema Antibody (RPR)on 01-05-2021 Syphilis Treponema Antibody Nonreactive Nonreactive [facility] Comprehensive metabolic pane l aka Metaboon 11-26-2020 Albumin [Mass/Vol] 3.7 g/dL 3.5 - 5 g/dL [facility] Alk Phos 78 U/L 24 - 126 U/L [facility] ALT [Catalytic activity/Vol] 12 U/L 4 - 35 U/L [facility] AST [Catalytic activity/Vol] 19 U/L 3 - 47 U/L [facility] Bilirubin [Mass/Vol] 0.6 mg/dL 0.2 - 1.6 mg/dL [facility] Calcium [Mass/Vol] 9.5 mg/dL 8.4 - 10. 4 mg/dL [facility] Chloride [Moles/Vol] 105 mmol/L 96 - 109 mmol/L [facility] CO2 [Moles/Vol] 21 mmol/L Low 22 - 30 mmol/L [facility] Comprehensive metabolic 2000 panel 0.46 mg/dL Low 0.52 - 1.04 mg/dL [facility] Glucose [Mass/Vol] 87 mg/dL 65 - 100 mg/dL [facility] Interpretation and review of laboratory results Abnormal [facility] Potassium [Moles/Vol] 4.2 mmol/L 3.6 - 5.1 mmol/L [facility] Protein [Mass/Vol] 6.8 g/dL 6.3 - 8.2 g/dL [facility] Sodium [Moles/Vol] 133 mmol/L Low 135 - 147 mmol/L [facility] Urea nitrogen [Mass/Vol] 7 mg/dL Low 8 - 20 mg/dL [facility] GLOMERULAR FILTRATION RATEon 11-26-2020 GFR/1.73 sq M.predicted MDRD (S/P/Bld) [Vol rate/Area] mL/min/{1.73_m2} [facility] Comment on above: To estimate the GFR [...] fraction] 4.3 % 0 - 6 % [employer] [facility] Comment on above: Reference Interval f or %A1c %A1c (NGSP) Interpretation <6.0% Non-Diabetic Range >6.5% Action Suggested . Hepatitis C antibodyon 11-26 HCV Ab Qn (S) Nonreactive Nonreactive [facility] LDH SERUMon 11-26-2020 LDH Pyruvate to lactate reaction [Catalytic activity/Vol] 513 U/L 308 - 626 U/L [facility] Otheron 11-26-2020 [facility] Type & Screen (must order with either panel)on 11-26-2020 ABO and Rh group Nom (Bld) O POS [facility] Blood group antibody screen.cells I+II+III Ql Negative [employer] [facility] Protein / creatinine ratio, urineon 11-26-2020 Protein (U) [Mass/Vol] 10 mg/dL 0 - 12 mg/dL [employer] [facility] Protein/Creatinine (U) [Mass ratio] 0.1 [facility] Ur Cre-Random 118.20 mg/dL NO NORMALS [facility] Uric acidon 11-26-2020 Urate [Mass/Vol] 3.0 mg/dL 2 - 7 mg/dL [employer] [facility] Vital Signs Date Time Vital Sign Value Performing Clinician Facility 02-07-2023 04:32-0400 Diastolic blood pressure 65 mm[Hg] Mantex DO Work Phone: [facility] 02-07-2023 04:32-0400 Heart rate 69 /min Mantex DO Work Phone: [facility] 02-07-2023 04:32-0400 Respiratory rate 18 /min Conchita Bomsta DO Work Phone: [facility] 02-07-2023 04:32-0400 SaO2% (BldA) [Mass fraction] 99 % Conchita Brownta Work Phone: [facility] 02-07-2023 04:32-0400 Systolic blood pressure 114 mm[Hg] Conchita Brownta DO Work Phone: [facility] 02-06-2023 23:14-0400 Body height 167.6 cm Conchita Brownta Work Phone: [facility] 02-06-2023 23:14-0400 Body mass index (BMI) [Ratio] 34.7 kg/m2 Conchita Brownta Work Phone: [facility] 02-06-2023 23:14-0400 Body temperature 98.91 [degF] Conchita Brownta Work Phone: [facility] 02-06-2023 23:14-0400 Body weight 97.52 kg Conchita Carrion DO Work Phone: [facility] 03-24-2021 08:00-0400 Body temperature 98.29 [degF] Lexi Lewis MD Work Phone: [facility] 03-24-2021 08:00-0400 Diastolic blood pressure 55 mm[Hg] Lexi Lewis MD Work Phone: [facility] 03-24-2021 08:00-0400 Heart rate 76 /min Lexi Lewis MD Work Phone: [facility] 03-24-2021 08:00-0400 Respiratory rate 16 /min Lexi Lewis MD Work Phone: [facility] 03-24-2021 08:00-0400 Systolic blood pressure 115 mm[Hg] Lexi Lewis MD Work Phone: [facility] 03-24-2021 04:00-0400 SaO2% (BldA) [Mass fraction] 97 % Lexi Lewis MD Work Phone: [facility] 03-21-2021 20:37-0400 Body height 167.6 cm Lexi Lewis MD Work Phone: [facility] 03-21-2021 20:37-0400 Body mass index (BMI) [Ratio] 39.71 kg/m2 Lexi Lewis MD Work Phone: [facility] 03-21-2021 20:37-0400 Body weight 111.58 kg Lexi Lewis MD Work Phone: [facility] 03-06-2021 21:50-0400 Diastolic blood pressure 57 mm[Hg] Stacy Alonso MD Work Phone: [facility] 03-06-2021 21:50-0400 Heart rate 77 /min Stacy Alonso MD Work Phone: [facility] 03-06-2021 21:50-0400 Systolic blood pressure 120 mm[Hg] Stacy Alonso MD Work Phone: [facility] 03-06-2021 20:50-0400 Body height 167.6 cm Stacy Alonso MD Work Phone: [facility] 03-06-2021 20:50-0400 Body mass index (BMI) [Ratio] 38.58 kg/m2 Stacy Alonso MD Work Phone: [phone] [address] 03-06-2021 20:50-0400 Body weight 108.41 kg Stacy Alonso MD Work Phone: [facility] 03-06-2021 20:50-0400 Respiratory rate 20 /min Stacy Alonso MD Work Phone: [facility] 03-06-2021 20:48-0400 Body temperature 98.01 [degF] Stacy Alonso MD Work Phone: [facility] 03-02-2021 02:04-0400 Diastolic blood pressure 69 mm[Hg] Stacy Alonso MD Work Phone: [facility] 03-02-2021 02:04-0400 Heart rate 88 /min Stacy Alonso MD Work Phone: [facility] 03-02-2021 02:04-0400 Systolic blood pressure 131 mm[Hg] Stacy Alonso MD Work Phone: [facility] 03-02-2021 01:37-0400 Body height 167.6 cm Stacy Alonso MD Work Phone: [facility] 03-02-2021 01:37-0400 Body mass index (BMI) [Ratio] 38.41 kg/m2 Stacy Alonso MD Work Phone: 6(676)[phone] [address] 03-02-2021 01:37-0400 Body temperature 98.91 [degF] Stacy Alonso MD Work Phone: [phone])[phone] [address] 03-02-2021 01:37-0400 Body weight 107.96 kg Stacy Alonso MD Work Phone: [facility] 03-02-2021 01:37-0400 Respiratory rate 20 /min Stacy Alonso MD Work Phone: [facility] 02-03-2021 21:58-0400 Diastolic blood pressure 77 mm[Hg] Stacy Alonso MD Work Phone: [phone] [address] 02-03-2021 21:58-0400 Heart rate 91 /min Stacy Alonso MD Work Phone: [facility] 02-03-2021 21:58-0400 Respiratory rate 18 /min Stacy Alonso MD Work Phone: [facility] 02-03-2021 21:58-0400 Systolic blood pressure 128 mm[Hg] Stacy Alonso MD Work Phone: [facility] 08-14-2020 09:19-0500 Body Temperature 98.49 [degF] [facility] 08-14-2020 06:50-0500 BMI (Body Mass Index) 32.28 kg/m2 Aliya [facility] 08-14-2020 06:50-0500 Body weight 90.72 kg [facility]ya [facility] 08-14-2020 06:50-0500 BP Diastolic 74 mm[Hg] [facility] 08-14-2020 06:50-0500 BP Systolic 135 mm[Hg] [facility]ya [facility] 08-14-2020 06:50-0500 Height 167.6 cm Aliya [facility] 08-14-2020 06:50-0500 Pulse (Heart Rate) 82 /min [facility] 08-14-2020 06:50-0500 Pulse Oximetry 99 % Aliya Cao [facility] re System 08-14-2020 06:50-0500 Respiratory Rate 18 /min Aliya Cao [facility] are System Encounters Encounter Date Encounter Type Care Provider Facility Start: 02-07-2023 End: 02-07-2023 Emergency department patient visit GLORIA [facility] Start: 02-07-2023 End: 02-07-2023 Emergency department patient visit Conchita Carrion DO Work Phone: [facility] Comment on above: Sore throat (Primary Dx) Start: 06-20-2022 ambulatory BRENDAN PEREZ [facility] Start: 06-14-2022 End: 06-14-2022 ambulatory BELLE [facility] Start: 06-14-2022 Encounter for gynecological examination (general) (routine) without abnormal findings [facility] Start: 06-14-2022 End: 06-15-2022 ambulatory BELLE [facility] Start: 02-06-2022 End: 02-06-2022 Subsequent hospital visit by physician Paulo Upton DO Work Phone: [facility] Start: 02-04-2022 End: 02-04-2022 Subsequent hospital visit by physician Kym Gutierrez APRN [employer]IST Work Phone: [facility] Comment on above: URI with cough and c ongestion Start: 10-15-2021 End: 10-15-2021 Subsequent hospital visit by physician Marianna Abbasi APRN, CNP Work Phone: [facility] Comment on above: Breast pain, left Start: 06-08-2021 End: 06-08-2021 Subsequent hospital visit by physician Job Fitzgerald MD Work Phone: [facility] Start: 03-21-2021 End: 03-24-2021 Evaluation and management of inpatient Lexi Lewis MD Work Phone: [facility] ([facility]) Comment on above: Encounter for induct ion of labor (Primary Dx) Start: 03-06-2021 End: 03-06-2021 Subsequent hospital visit by physician Stacy Alonso MD Work Phone: [facility] ([address] [place]) Start: 03-02-2021 End: 03-02-2021 Subsequent hospital visit by physician Stacy Alonso MD Work Phone: [facility] ([address] [place]) Start: 02-24-2021 End: 02-24-2021 Subsequent hospital visit by physician Nicole Rodarte DO Work Phone: [facility] Comment on above: 36 weeks gestation o f ; Chlamydia trachomatis infection in mother during second trimester of Start: 02-03-2021 End: 02-03-2021 Subsequent hospital visit by physician Stacy Alonso MD Work Phone: [facility] ([address] [place]) Start: 01-05-2021 End: 01-05-2021 Subsequent hospital visit by physician Nicole Rodarte Work Phone: [facility] Comment on above: 27 weeks gestation o f Start: 12-21-2020 End: 12-21-2020 Subsequent hospital visit by physician Nicole Rodarte Work Phone: [facility] Comment on above: 27 weeks gestation o f ; Chlamydia trachomatis infection in mother during second trimester of Start: 11-26-2020 End: 11-26-2020 Subsequent hospital visit by physician Nicole Rodarte Work Phone: [facility] Comment on above: Late care a ffecting in second trimester Start: 11-26-2020 End: 11-26-2020 Subsequent hospital visit by physician Nicole Rodarte Work Phone: [facility] Comment on above: Late care a ffecting in second trimester; History of low potassium; Elevated blood pressure reading Start: 08-14-2020 End: 08-14-2020 Emergency department patient visit Aliya Cao Work Phone: [facility] Comment on above: Pain, dental (Primar y Dx); Jaw swelling Procedures Date Procedure Procedure Detail Performing Clinician Start: 02-06-2023 Iadna streptococcus group a amplified probe tq Conchita Armida [facility] Work Phone: Start: 06-14-2022 Microscopic observat ion [Identifier] in Cervix by Cyto stain Conchita Envie de Fraises Work Phone: Start: 10-15-2021 Us breast uni real t duane with image limited Marianna Abbasi APRN [employer]IST Work Phone: Start: 03-23-2021 Blood count complete [...] DTAP/TDAP/TD VACCINE (2 - Td or Tdap) [facility] Start: 03-04-2031 Diphtheria + pertuss is + tetanus vaccine (product) DTAP/TDAP/TD VACCINE (2 - Td or Tdap) [facility] Start: 06-14-2025 Screening for malign ant neoplasm of cervix PAP SMEAR [facility] Start: 06-20-2023 End: 06-20-2023 Patient encounter procedure 06/20/2023 Office Visit Obstetrics and Gynecology Belle Ochoa APRN [employer]IST [address] [id number] [facility] OBSTETRICS/GYNECOLOG Y Start: 06-15-2023 ANNUAL WELLNESS VISIT ANNUAL WELLNES S VISIT [facility] Start: 06-14-2023 CHLAMYDIA SCREENING CHLAMYDIA SCREEN [facility] Start: 06-02-2023 Influenza vaccinatio n given INFLUENZA VACCINE (Season Ended) [facility] Start: 06-02-2022 Influenza vaccinatio n given INFLUENZA VACCINE (Season Ended) [facility] Start: 05-25-2022 End: 05-25-2022 Patient encounter procedure 05/25/2022 Office Visit Obstetrics and Gynecology Belle Ochoa APRN [employer] [address] [place] [address] [facility] OBSTETRICS/GYNECOLOG Y Start: 02-24-2022 CHLAMYDIA SCREENING CHLAMYDIA SCREEN [facility] Start: 12-21-2021 CHLAMYDIA SCREENING CHLAMYDIA SCREEN [facility] Start: 11-26-2021 CHLAMYDIA SCREENING CHLAMYDIA SCREEN [facility] Start: 10-18-2021 End: 10-18-2021 Patient encounter procedure 10/18/2021 Office Visit Dentistry Alka Adams DDS [address] [place] [address] [facility] Start: 2021 Screening for malign ant neoplasm of cervix PAP SMEAR [facility] Start: 07-22-2021 End: 07-22-2021 Patient encounter procedure 07/22/2021 Office Visit Dentistry Alka Adams DDS [address] [place] [address] [facility] Start: 06-02-2021 Influenza vaccinatio n given [facility] Start: 05-12-2021 End: 05-12-2021 ambulatory 05/12/2021 Visit Obstetrics and Gynecology Nicole Rodarte DO [address] [facility] [address] [place] [address] [phone] [facility] OBSTETRICS/GYNECOLOG Y Start: 03-10-2021 End: 03-10-2021 Patient encounter procedure 03/10/2021 Routine Obstetrics and Gynecology Nicole Rodarte DO [address] [place] [address] [facility] Start: 03-04-2021 End: 03-04-2021 Patient encounter procedure 03/04/2021 Routine Obstetrics and Gynecology Nicole Rodarte DO [address] [place] [address] [facility] Start: 02-24-2021 End: 02-24-2021 Patient encounter procedure 02/24/2021 Routine Obstetrics and Gynecology Nicole Rodarte DO [address] [place] [address] [facility] Start: 02-11-2021 End: 02-11-2021 Patient encounter procedure 02/11/2021 Routine Obstetrics and Gynecology Nicole Rodarte DO [address] [place] [address] [facility] Start: 01-11-2021 End: 01-11-2021 Routine 01/11/2021 Routine Obstetrics and Gynecology Nicole Rodarte DO [address] [place] [address] [facility] Start: 12-24-2020 End: 12-24-2020 Routine 12/24/2020 Routine Obstetrics and Gynecology Nicole Rodarte DO [address] [place] [address] [facility] Start: 06-02-2020 Influenza vaccinatio n given INFLUENZA VACCINE (#1) [facility] Start: 2018 ANNUAL WELLNESS VISIT ANNUAL WELLNES S VISIT [facility] Start: 2016 CHLAMYDIA SCREENING CHLAMYDIA SCREEN ING [facility] Start: 2012 Adult depression screening assessment DEPRESSION SCREENING [facility] Start: 2012 Depression screening using PHQ-9 (Patient Health Questionnaire 9) score DEPRESSION SCREENING [facility] Start: 2011 Diphtheria + pertuss is + tetanus vaccine (product) DTAP/TDAP/TD VACCINE (1 - Tdap) [facility] Start: 2011 Human papilloma viru s vaccination given HPV VACCINES (GARDASIL) (1 - 2-dose series) [facility] Start: 2011 Vaccination for gabe n papillomavirus HPV VACCINES (GARDASIL) (1 - 2-dose series) [facility] Start: 2005 COVID-19 VACCINE (1) COVID-19 VACCIN E (1) [facility] Start: 02-24-2001 COVID-19 VACCINE (#1) COVID-19 VACCI NE (#1) [facility] End: 11-26-2020 Chlamydia trachomatis+Neisseria gonorrhoeae rRNA [Presence] in Cervix by Probe GC &Chlamydia Microbiology Routine Late care affecting in second trimester 1 Occurrences starting 11/26/2020 until 11/26/2020 [facility] Comment on above: 1 Occurrences starti ng 11/26/2020 until 11/26/2020 Chlamydia trachomatis+Neisseria gonorrhoeae rRNA [Presence] in Cervix by Probe [facility] End: 12-21-2020 Chlamydia trachomatis+Neisseria gonorrhoeae rRNA [Presence] in Cervix by Probe GC & CHLAMYDIA AMPLIFIED PROBE Microbiology Routine 27 weeks gestation of Chlamydia trachomatis infection in mother during second trimester of 1 Occurrences starting 12/21/2020 until 12/21/2020 [facility] Comment on above: 1 Occurrences starti ng 12/21/2020 until 12/21/2020 End: 02-24-2021 Chlamydia trachomatis+Neisseria gonorrhoeae rRNA [Presence] in Cervix by Probe GC & Chlamydia Amplified Probe Microbiology Routine 36 weeks gestation of Chlamydia trachomatis infection in mother during second trimester of 1 Occurrences starting 02/24/2021 until 02/24/2021 [facility] Comment on above: 1 Occurrences starti ng 02/24/2021 until 02/24/2021 End: 06-08-2021 COVID-19 (2019 NOVEL CORONAVIRUS) [facility] Work Phone: Comment on above: One Time for 1 Occur rences starting 06/08/2021 until 06/08/2021 End: 11-26-2020 Drug Screen Urine Extended Panel Drug Screen Urine Extended Panel Lab Routine Late care affecting in second trimester 1 Occurrences starting 11/26/2020 until 11/26/2020 [facility] Comment on above: 1 Occurrences starti ng 11/26/2020 until 11/26/2020 Drug Screen Urine Extended Panel Drug Screen Urine Extended Panel Lab Routine Late care affecting in second trimester 11/26/2020 3:23 PM EST [employer] System nonstress test nonst ress test OB Routine Daily 0500 until discontinued starting 03/07/2021 [facility] Comment on above: Daily 0500 until dis continued starting 03/07/2021 End: 02-24-2021 Genital Group B Strep Screen Genital Group B Strep Screen Microbiology Routine 36 weeks gestation of 1 Occurrences starting 02/24/2021 until 02/24/2021 [facility] Comment on above: 1 Occurrences starti ng 02/24/2021 until 02/24/[address] p Screen Genital Group B Strep Screen Microbiology Routine 36 weeks gestation of 02/24/2021 10:07 PM EDT [employer] End: 03-06-2021 POCT Nitrazine Test POCT Nitrazine Test OB Routine One Time for 1 Occurrences starting 03/06/2021 until 03/06/2021 [facility] Comment on above: One Time for 1 Occur rences starting 03/06/2021 until 03/06/2021 PANEL WITH HIV Panel with HIV Lab Routine Late care affecting in second trimester 11/26/2020 3:26 PM EST [employer] End: 02-04-2022 SARS-COV-2, [facility] [employer] Work Phone: Comment on above: One Time for 1 Occur rences starting 02/04/2022 until 02/04/2022 End: 02-06-2022 SARS-COV-2, [employer] Work Phone: Comment on above: One Time for 1 Occur rences starting 02/06/2022 until 02/06/2022 End: 11-26-2020 Urine culture and sensitivity Urine culture and sensitivity Microbiology Routine Late care affecting in second trimester 1 Occurrences starting 11/26/2020 until 11/26/2020 [facility] Comment on above: 1 Occurrences starti ng 11/26/2020 until 11/26/2020 Urine culture and sensitivity Urine culture and sensitivity Microbiology Routine Late care affecting in second trimester 11/26/2020 3:23 PM EST [facility] Immunizations Immunization Date Immunization Notes Care Provider Fa cility 03-04-2021 tetanus toxoid, reduced diphtheria toxoid, and acellular pertussis vaccine, adsorbed Stacy Alonso MD Work Phone: [facility] 08-26-2008 influenza virus vaccine, unspecified formulation Lexi Lewis MD Work Phone: [facility] NEGATED: Highlighted row has not occurred!03-22-2021 measles, mumps and rubella virus vaccine Lexi Lewis MD Work Phone: [facility] Comment on above: Deferred: - immune Payers Date Payer Category Payer Medicaid [id number] 2020 Medicaid [facility] [id number] 2020-Present [phone] [place] [id number] Medicaid [id number] 2000 Unknown [id number] 2000 Unknown [id number] 2000 Unknown [id number] 2000 Unknown [id number] Unknown [id number] Social History Date Type Detail Facility Start: 08-14-2020 End: 02-04-2022 Tobacco smoking status NHIS Former smoker [facility] Start: 08-14-2020 End: 06-14-2022 Tobacco use and exposure Never used [facility] Start: 2000 Sex Assigned At Not on file [facility] Start: 01-27-2023 End: 02-07-2023 Exposure to SARS-CoV-2 (event) Not sure [facility] End: 11-02-2020 History of tobacco use Current smoker [facility] [place] 2[facility] Start: 11-26-2020 End: 02-04-2022 Alcohol intake Ex-drinker (finding) [facility] Start: 06-29-2020 [facility] Exposure to SARS-CoV -2 (event) Unable to assess [facility] Start: 2000 Sex Assigned At Female G [facility] Work Phone: Start: 09-21-2021 End: 06-14-2022 Tobacco smoking status NHIS Current every day smoker [facility] Work Phone: History of tobacco use Tobacco U se Types Packs/Day Years Used Date Smoking Tobacco: Every Day E-Cig/Vaping Smokeless Tobacco: Never [facility] Start: 02-07-2023 Alcohol intake Current drinke r of alcohol (finding) [facility] Start: 06-14-2022 Alcohol Comment occ [facility] Clinical Notes 02-03-2021 to 02-07-2023 Ava Lassiter [...] arm, pt ambulates to lobby with ease. [facility] 02-07-2023 Emergency department Note Discharge instructions given [...] distress during triage. documented in this encounter [facility] 02-07-2023 Emergency department Note Pt ambulates to [...] unlabored, airway patent, skin pwd, NAD noted. [facility] 02-06-2023 Emergency department Triage note Pt arrives to the ED for throat tightness. Onset over last 1 1/2 hour. Denies any throat pain, just tightness. Denies any known for cause. Pt A & O. Resp reg. Speech is clear. No distress during triage. [facility] 10-15-2021 Note CLINICAL HISTORY: Patient is [...] account for the patient's pain. Normal examination. [facility] 03-24-2021 Miscellaneous Notes Dischg'd to home in [...] and reinforced. Norms of a breast fed infant discussed. Benefits of skin to skin positioning explained & behavior encouraged. Waking techniques explained & demonstrated.Feeding assistance given. Mom taught good positioning and how to latch infant using reverse pressure softening, hand expression and t-cup breast support. Latch appears deep. Active sucking and swallowing observed. Mom is able to relatch infant using techniques taught. Grandma is also concerned because has been silently regurging and she is [...] and mother returns demonstration once with encouragement. Infant's latch looks slightly shallow at times and [...] page for further assistance as needed. 03/22/21 1653 Consult Initial assessment Previous n/a Gestational Age [...] Size: 3 Other Children in home: 0 Dry Goods Inspector / Family Physician: Dr Porras Problem List: Psychiatric History Community Agencies Involved: Wic Assessment:: MOB has hx of anx. Reports that she gets nervous but is okay. MOB reports she has hx of dep but hasn't had it [id number]. PPD handout provided with verbal edu on [...] not included. Rosina Vergara Social Worker IP Paramedical Aide D/C Planning Signed Note Time: 03/22/21 1509 [...] needs. Vaginal Delivery Note Eva Granados 2000 [id number] 20 y.o. at 40w0d gestation Delivering Direct Support Professional Caregiver: Lexi Lewis Primary Direct Support Professional Caregiver: Lexi Lewis Pre-Delivery Diagnosis: IUP at 40 [...] applied. SVE . documented in this encounter [facility] 03-24-2021 Hospital course Narrative Obstetrical Discharge Summary Eva Granados 2000 [id number] 03/21/2021 Delivering OB Clinician: Lexi Lewis MD [...] Nicole Rodarte 03/24/2021 documented in this encounter [facility] 03-24-2021 History of Presen t illness Narrative [...] 2. Routine care documented in this encounter [facility] 03-22-2021 History and physical note This note [...] for : 37w US: vertex, EFW 3028g (1rh22hh) 42%ile, SUGAR 15.0cm, post gr3 placenta Late [...] +accelerations, intermittent early, late, and variable decelerations Lazear: q 1-3 minutes VE: Complete/+2 station with artificial rupture performed for clear fluid Eva Granados 2000 [id number] 20 y.o. at 40w1d with EDC of Estimated Date of Delivery: 03/22/21 who is being admitted for induction of labor. Her current obstetrical history is remarkable for: 37w US: vertex, EFW 3028g (1lb36gh) 42%ile, SUGAR 15.0cm, post gr3 placenta Late [...] cephalic FHTs: To be assessed on arrival Lazear: To be assessed on arrival Cervix: Last in office Dilation: 1cm Effacement: 50% Station: -3 Damon score: 3 Labs GBS neg Rh pos Impression: 20 y.o. at 40w1d Induction of labor Late PNC at 23w Chlamydia at [facility] but 36w recheck neg GBS neg Rh pos Plan: 1. ATSO [place] 2. CEFM + Lazear 3. Admission labs 4. Suspect some component of mild blood pressure elevations related to anxiety as happened at [facility] and when seeing a different provider last week. Will update preeclampsia labs on admission as a precautions. 5. Cervical ripening with cytotec, plan to follow with pitocin per protocol once Damon score is more favorable 6. Pain control PRN documented in this encounter [facility] 03-06-2021 Miscellaneous Notes Pt is discharged home [...] with monitors applied. documented in this encounter [facility] 03-06-2021 Hospital Discharg e Nadege Fisher RN [...] not have a private physician call the [facility] NurseLine right away at or . [...] Call according to your Doctor s instructions. [facility] is located at [facility] [place] [facility] the [facility]. Warning Signals Possible Complications in Call if: [...] (use kick count). documented in this encounter [facility] 03-02-2021 Miscellaneous Notes EFM discontinued, pt given [...] pt states understanding. documented in this encounter [facility] 02-03-2021 Miscellaneous Notes Patient provided with verbal [...] applied, education provided. documented in this encounter [facility] 02-03-2021 Hospital Discharg e instructions Jorge Moreira [...] Hydrocortisone. Ask your doctor about taking an pfxi-mqg-ryfidfg stool softener. Consider Experts recommend that women [...] may help to think about your personal, latter day, and family traditions. You get to decide if you will keep your son's penis natural or if he will be circumcised. If you decide that you would like to have your baby circumcised, talk with your doctor. You can share your concerns about pain. And you can discuss your preferences for anesthesia. Where can you learn more? Go to https://www.[employer].net/pat ientEd Enter X711 in the search box to learn more about Weeks 32 to 34 of Your : Care Instructions. Current as of: July 09, 2020 Content Version: 12.8 [employer]. Care instructions adapted under license by your healthcare professional. If you have questions about a medical condition or this instruction, always ask your healthcare professional. [employer] disclaims any warranty or liability for your use of this information. documented in this encounter [facility] Evaluation note Diagnosis 36 weeks gestation of state, incidental Chlamydia trachomatis infection in mother during second trimester of [facility] Diagnosis (spontaneous vaginal delivery)- Primary Normal delivery Encounter for induction of labor Normal labor Chlamydia trachomatis infection in mother during second trimester of Late care affecting in second trimester [facility] Diagnosis Breast pain, left Mastodynia [facility] Diagnosis URI with cough and congestion [facility] Diagnosis Sore throat- Primary Acute pharyngitis [facility]* Instructions* Tamiko Melo RN - 03/02/2021 Signs and Symptoms of Labor This is a guide for you about the signs of true labor. If you have any of these signs before 36 weeks of (nine months), please call your private physician. If you do not have a private physician call the [facility] Nurse[facility] right away at or . [...] Call according to your Doctor s instructions. [facility] is located at [facility] [place] [facility] the [facility]. Warning Signals Possible Complications in Call if: [...] movement (use kick count). [facility]* Instructions* Maile Moses RN - [...] eating high-fiber foods. Ask your doctor about mgzx-hhf-ujvwjwk stool softeners. Cleanse yourself with a gentle [...] few days after delivery. Plan for child life therapist if you have other children. Stay flexible [...] Where can you learn more? Go to https://www.[employer].net/patientEd Enter A461 in the search box to learn more about After Your Delivery (the Period): CareInstructions. Current as of: July 09, 2020 Content Version: 12.9 [employer]. Care instructions adapted under license by your healthcare professional. If you have questions about a medical condition or this instruction, always ask your healthcare professional. [employer] disclaims any warranty or liability for your use of this information. * Attachments The following attachments cannot be sent through Care Everywhere. * (Beninese Cypriot) [facility]* Attachments The following attachments cannot be sent through Care Everywhere. * Sore Throat (Beninese Cypriot) [facility] Procedure Authorization (Routine) - Closed Specialty Diagnoses / Procedures Referred By Lilo t Referred To Contact Diagnoses Breast pain, left Procedures US Breast Left Limited Marianna Abbasi APRN START UP SPECIALIST [address] [place] [address] [facility] [address] [address] Referral ID Status Reason Start Date Expiration Date Visits Re quested Visits Authorized [id number] Closed 09/21/2021 10/22/2022 1 1 [facility] for visit Narrative* Procedure Authorization (Routine) - Closed Specialty Diagnoses / Procedures Referred By Contac t Referred To Contact Diagnoses Breast pain, left Procedures US Breast Left Limited Marianna Abbasi APRN START UP SPECIALIST [address] [place] [address] [facility] [address] [address] Referral ID Status Reason Start Date Expiration Date Visits Re quested Visits Authorized [id number] Closed 09/21/2021 10/22/2022 1 1 [facility] Reason for Referral Status Reason Specialty Diagnoses / Procedures Referred By Contact Referred To Contact [facility] Circular Ripsaw Operator / Dentistry Diagnoses Pain, dental Jaw swelling Aliya Cao DO [address] [place] [address] [facility] [address] [place] [address] Status Reason Specialty Diagnoses / Procedures Referred By Contact Referred To Contact [facility] Diagnoses Pain, dental Jaw swelling Aliya Cao DO [address] [place] [address] [facility] [address] [place] [address] [place] [address] Discharge Instructions * Instructions* Aliya Cao DO - 08/14/2020 No driving or operating heavy machinery while taking norco - no extra tylenol * Attachments The following attachments cannot be sent through Care Everywhere. * Tooth and Gum Pain (Beninese Cypriot) documented in this encounter Assessments Diagnosis Pain, [...] FoundDocuments on File Type Date Recorded Patient Clerk Of Court Expl anation Advance Directives and Living Will Power of Commercial Diver Documents on File Type Date Recorded Patient Clerk Of Court Expl anation Advance Directives and Living Will Power of Commercial Diver Latest Code Status on File Code Status [...] Documents on File Type Date Recorded Patient Clerk Of Court Expl anation Advance Directives and Living Will Power of Commercial Diver DNR Documentation Latest Code Status on File Code Status Date Activated Date Inactivated Comments Full Code 03/22/2021 5:16 AM 03/24/2021 7:51 PM Full Code 03/22/2021 1:13 AM 03/22/2021 5:16 AM Full Code 03/21/2021 9:27 PM 03/22/2021 1:13 AM Full Code 03/19/2021 11:50 AM 03/21/2021 9:27 PM Full Code 03/06/2021 9:45 PM 03/07/2021 4:11 AM Documents on File Type Date Recorded Patient Clerk Of Court Expl anation Advance Directives and Living Will Power of Commercial Diver DNR Documentation Summary Purpose Family History No [...] (Given - Provider: Maile Moses RN) TdaP isprhrt-hidvyloqjh-erba lular pertussis (BOOSTRIX) injection 0.5 mL 0.5 [...] Care Teams (unrecognized sec tion and content) Senior Sales Operations Manager Relationship Specialty Start Date End Date Pcp, None [address] [place] [address] PCP - General 08/14/20 INFORMATION SOURCE (unrecogn ized section and content) DATE CREATED AUTHOR 03/13/2023 [facility] FOR RECORDS PERTAINING TO PATIENTS WHO [...] BE BASED ON THE PRIMARY CLINICAL RECORDS. [facility]. provides no warranty or guarantee of the accuracy or completeness of information in this document.
--- NOTE | 2024-11-14 22:27 | ECG_ITS ---
[facility] Test Date: 2024-11-14 Pat Name: VERN DUONG Department: Room: - Gender: Female Manifest/Order Organizer Print Orders: : 2000 Requested By: SANTINO CUEVA Order Number: [id number] Reading MD: ARLINE HACKETT Measurements Intervals [place] Rate: 71 P: 83 IA: 148 QRS: 92 QRSD: 92 T: 58 QT: 374 QTc: 397 Interpretive Statements 1100 Sinus rhythm 1102 Sinus arrhythmia 7102 Moderate right axis deviation 9110 normal ECG No previous ECG available for comparison Electronically Signed On 11-15-2024 5:28:36 EST by ARLINE HACKETT
--- NOTE | 2024-11-14 23:18 | ED.PSYCH1 ---
HPI - Psych General Chief Complaint: Psychiatric Symptoms Stated Complaint: PSYCH Time Seen by Provider: 11/14/24 22:27 Source: Reports patient and other Source comment: [facility] Mode of arrival: ambulance History of Present Illness HPI Narrative: This 24-year-old female with a history of anxiety, bipolar disorder who states she was diagnosed with borderline personality disorder as well and stopped taking her medications over a month ago when she started having trouble with her boyfriend at that time who she had been with for 5 years presents for evaluation via EMS. The patient had a verbal disagreement with her ex-boyfriend who is the father of her 3-year-old daughter. Apparently the patient and her daughter's father broke up a little over a month ago. The patient states she was not happy and told him that she wanted to seek happiness in her life and it did not include him. He became upset at that time and tried to get her to stay with him but ultimately she broke up with him. Since that time she has been staying with her grandmother with her 3-year-old daughter. She has been talking to another yessenia. Apparently the father of her daughter and the yessenia she has been talking to have been texting amongst themselves. She found out about this and was very upset. Her daughter's father also tried to take her daughter to [place] earlier today. The police were called by her grandmother who had her daughter and the daughter is still with the grandmother. The patient was very upset about the circumstances and pulled over in her car at a local fast food restaurant. At some point she verbalized either to the police or EMS that she was so upset that she felt like crashing her car. Her daughter was not with her at this time. Upon arrival she is upset but denies any suicidal ideation and states she would never do anything to harm herself and take her out of her daughter's life. She denies that she has been drinking or using any drugs. She does admit that she stopped using her venlafaxine and BuSpar over a month ago and feels like her depression and anxiety have worsened since that time. Related Data Previous Rx's ?Medication ?Instructions ?Recorded cephalexin 500 mg capsule 500 mg PO Q8H 7 days #21 caps 11/20/23 mupirocin 2 % topical ointment 1 applic topical BID #15 grams 11/20/23 sulfamethoxazole 800 1 tab PO BID 7 days #14 tabs 11/20/23 mg-trimethoprim 160 mg tablet (Bactrim DS) cephalexin 500 mg capsule 500 mg PO Q8H 10 days #30 caps 04/08/24 ketorolac 10 mg tablet 10 mg PO TID PRN pain #10 tabs 04/08/24 sulfamethoxazole 800 1 tab PO BID 10 days #20 tabs 04/08/24 mg-trimethoprim 160 mg tablet (Bactrim DS) Allergies Allergy/AdvReac Type Severity Reaction Status Date / Time No Known Drug Allergies Allergy Verified 11/14/24 22:11 Review of Systems ROS Status of ROS 10 or more systems reviewed and unremarkable except as noted in history and below [facility] Social History Smoking status: Never smoker Little interest or pleasure in doing things: several days Feeling down, depressed, or hopeless: several days Exam Narrative Exam Narrative: Vital signs and Nursing Notes reviewed: Patient is afebrile with a normal pulse, blood pressure is elevated 148/79, she is not hypoxic with pulse ox of 100% on room air General: Awake, alert, oriented, no acute distress, tearful at times but cooperative and forthcoming HEENT: Normocephalic atraumatic, mucous membranes are moist and pink, eyes are clear, normal conjunctiva, vision is grossly intact Chest: Lungs are clear to auscultation with good air entry, there is no wheezing rhonchi or rales appreciated no accessory muscle use, patient is speaking in complete sentences-no chest wall tenderness to palpation CVS: Regular rate and rhythm S1-S2, no murmurs rubs or gallops, pulses are brisk and equal bilaterally ABD: Soft, nondistended, nontender, no rebound guarding or rigidity, bowel sounds are normal, no pulsatile masses appreciated Extremities: Moving all extremities, no lower extremity tenderness or swelling noted Skin: Normal in appearance without rash,pallor, petechiae or purpura Neuro: No focal deficits Psych; admits to medication noncompliance and verbalizing that she would crash her car during an episode of frustration and anxiety. Denies any homicidal or suicidal ideation. Feels safe and comfortable at home. Constitutional Vital Signs, click to edit/add: Last Vital Signs Temp 98.2 F 11/14/24 22:03 Pulse 84 11/14/24 22:03 Resp 18 11/14/24 22:03 BP 148/79 H 11/14/24 22:03 Pulse Ox 100 11/14/24 22:03 O2 Del Method Room Air 11/14/24 22:03 Course Vital Signs Vital signs: Vital Signs Temperature 98.2 F 11/14/24 22:03 Pulse Rate 84 11/14/24 22:03 Respiratory Rate 18 11/14/24 22:03 Blood Pressure 148/79 H 11/14/24 22:03 Pulse Oximetry 100 11/14/24 22:03 Oxygen Delivery Method Room Air 11/14/24 22:03 Temperature 98.2 F 11/14/24 22:03 Pulse Rate 84 11/14/24 22:03 Respiratory Rate 18 11/14/24 22:03 Blood Pressure 148/79 H 11/14/24 22:03 Pulse Oximetry 100 11/14/24 22:03 Oxygen Delivery Method Room Air 11/14/24 22:03 MDM - Psych MDM Narrative Medical decision making narrative: This patient presents for evaluation after she made a verbal gesture that she would crash her car after a disagreement with her child's father. Please refer to my H&P for the full story. She was medically cleared in the emergency department and evaluated by [facility]. She admits to medication noncompliance for approximately 1 month. She denied any suicidal or homicidal ideation. She was calm and cooperative in the emergency department. She did not appear to be intoxicated. Her urine drug tox was positive for marijuana only. Alcohol was negative. test was negative. CBC with differential and comprehensive metabolic profile was normal. Aspirin and Tylenol levels were normal. EKG upon arrival was a sinus rhythm at 70 bpm with no acute changes. The patient spoke with [facility] with recommendation for a safety plan. The patient's grandmother will pick her up. The patient's grandmother also has her 3-year-old daughter at this time. She will follow-up closely with her family physician to get back on her psychiatric medications which she has recently stopped taking. She was encouraged to return to the emergency department for thoughts of hurting herself or any other harmful behavior. Lab Data Labs: Lab Results 11/14/24 11/14/24 Range/Units 22:50 22:53 WBC 7.5 (4.0-11.0) 10^3/uL RBC 4.43 (4.20-5.40) 10^6/uL Hgb 13.6 (12.0-16.0) g/dL Hct 38.9 (36.0-48.0) % MCV 87.8 (81.0-99.0) fL MCH 30.7 (26.7-34.0) pg MCHC 35.0 (29.9-35.2) g/dL RDW 12.9 (11.0-15.0) % Plt Count 137 L (150-450) 10^3/uL MPV 11.0 (9.5-13.5) fL Neut % (Auto) 60.8 (43.0-75.0) % Lymph % (Auto) 28.2 (20.5-60.0) % Carter % (Auto) 8.3 (1.7-12.0) % Eos % (Auto) 1.9 (0.9-7.0) % Baso % (Auto) 0.5 (0.2-2.0) % Neut # (Auto) 4.6 (1.4-6.5) 10^3/uL Lymph # (Auto) 2.1 (1.2-3.8) 10^3/uL Carter # (Auto) 0.6 (0.3-0.8) 10^3/uL Eos # (Auto) 0.1 (0.0-0.7) 10^3/uL Baso # (Auto) 0.0 (0.0-0.1) 10^3/uL Abs Immat Gran (auto) 0.02 (0.00-0.03) 10^3/uL Imm/Tot Granulo (auto) 0.3 (0.0-0.5) % Sodium 140 (136-145) mmol/L Potassium 4.1 (3.5-5.1) mmol/L Chloride 103 (98-107) mmol/L Carbon Dioxide 25.0 (21.0-32.0) mmol/L Anion Gap 16.1 BUN 7.0 (7.0-18.0) mg/dL Creatinine 0.71 (0.55-1.02) mg/dL Est GFR ( Amer) >60 (>=60 mL/min/1.73m^2) Est GFR (Non-Af Amer) >60 (>=60 mL/min/1.73m^2) BUN/Creatinine Ratio 9.9 Glucose 88 (74-106) mg/dL Calcium 9.5 (8.5-10.1) mg/dL Total Bilirubin 1.6 H (0.2-1.0) mg/dL AST 27 (15-37) U/L ALT 18 (14-59) U/L Alkaline Phosphatase 64 (46-116) U/L Total Protein 7.7 (6.4-8.2) g/dL Albumin 4.3 (3.4-5.0) g/dL Globulin 3.4 g/dL Albumin/Globulin Ratio 1.3 Urine Color Yellow (YELLOW) Urine Clarity Clear (CLEAR) Urine pH 6.0 (5.0-9.0) Ur Specific [place] >=1.030 A (1.005-1.025) Urine Protein Trace (NEG/TRACE) mg/dL Urine Glucose (UA) Negative (NEGATIVE) mg/dL Urine Ketones 15 A (NEGATIVE) mg/dL Urine Occult Blood Negative (NEGATIVE) Urine Nitrite Negative (NEGATIVE) Urine Bilirubin Negative (NEGATIVE) Urine Urobilinogen 1.0 (0.2-1.0) EU/dL Ur Leukocyte Esterase Negative (NEGATIVE) Urine RBC 0-2 (0-2) #/HPF Urine WBC 0-2 A (NONE SEEN) #/HPF Ur Squamous Epith Cells Moderate A (NONE/RARE) #/LPF Urine Crystals None seen (None Seen) #/HPF Urine Bacteria Trace A (NONE SEEN) #/HPF Urine Casts None seen (NONE SEEN) #/LPF Urine Mucus Moderate A (NONE SEEN) Urine HCG, Qual Negative (NEGATIVE) Salicylates <2.8 (<=19.9) mg/dL Urine Opiates Screen Negative (NEGATIVE) Ur Buprenorphine Scrn Negative (NEGATIVE) Ur Oxycodone Screen Negative (NEGATIVE) Urine Methadone Screen Negative (NEGATIVE) Acetaminophen <2.0 L (10.0-30.0) ug/mL Ur Barbiturates Screen Negative (NEGATIVE) U Tricyclic Antidepress Negative (NEGATIVE) Ur Phencyclidine Scrn Negative (NEGATIVE) Ur Amphetamines Screen Negative (NEGATIVE) U Methamphetamines Scrn Negative (NEGATIVE) U Benzodiazepines Scrn Negative (NEGATIVE) Urine Cocaine Screen Negative (NEGATIVE) U Cannabinoids Screen Positive A (NEGATIVE) Ethanol Quant <3 mg/dL ECG Data Attestation: I personally reviewed and interpreted this ECG as follows: (Sinus rhythm at 70 bpm, normal axis, normal intervals, no acute ST segment elevation or T wave inversion) Discharge Plan Discharge Chief Complaint: Psychiatric Symptoms Clinical Impression: Mood disorder, Situational mixed anxiety and depressive disorder Patient Disposition: Home, Self-Care Time of Disposition Decision: 00:37 Condition: Good Prescriptions / Home Meds: No Action sulfamethoxazole-trimethoprim [Bactrim DS] 800-160 mg tablet 1 tab PO BID 7 Days Qty: 14 0RF cephalexin 500 mg capsule 500 mg PO Q8H 7 Days Qty: 21 0RF mupirocin 2 % ointment 1 applic topical BID Qty: 15 0RF sulfamethoxazole-trimethoprim [Bactrim DS] 800-160 mg tablet 1 tab PO BID 10 Days Qty: 20 0RF ketorolac 10 mg tablet 10 mg PO TID PRN (Reason: pain) Qty: 10 0RF cephalexin 500 mg capsule 500 mg PO Q8H 10 Days Qty: 30 0RF Print Language: Greenlandic Instructions: Mood Disorders (ED), Anxiety (ED) Referrals: SANTINO CUEVA [Primary Care Provider] - As soon as possible
--- NOTE | 2024-11-14 23:20 | PC.NURSE ---
patient on phone with Meenakshi from [facility]. Constant observer at bedside. patient changed and belongings bagged. Patient has been calm and cooperative. Patient states she had a recent break up. Patient having difficulty coparenting. tondemian the father told her he was taking there child to [place] after finding out patient was seeing someone new. Patient states she was upset and called the internet webmaster to stop him. Stated to internet webmaster she wanted to drive car into a pole. patient states this statement was just said out of being emotional and that she has no intent on harming herself. She does admit to feeling of drepression and hoplessness periodically over the last few weeks.
[2024-11-14 23:21] LABS: Basophils Percent Auto 0.5 % (0.2-2.0); Eosinophils Absolute Auto 0.1 10^3/uL (0.0-0.7); Eosinophils Percent Auto 1.9 % (0.9-7.0); Hematocrit 38.9 % (36.0-48.0); Hemoglobin 13.6 g/dL (12.0-16.0); Immature Granulocytes Abs Auto 0.02 10^3/uL (0.00-0.03); Immature Granulocytes Pct Auto 0.3 % (0.0-0.5); Lymphocytes Absolute Auto 2.1 10^3/uL (1.2-3.8); Lymphocytes Percent Auto 28.2 % (20.5-60.0); Mean Corpuscular Hemoglobin 30.7 pg (26.7-34.0); Mean Corpuscular Volume 87.8 fL (81.0-99.0); Monocytes Absolute Auto 0.6 10^3/uL (0.3-0.8); Monocytes Percent Auto 8.3 % (1.7-12.0); Neutrophils Absolute Auto 4.6 10^3/uL (1.4-6.5); Neutrophils Percent Auto 60.8 % (43.0-75.0); Platelet Count 137 10^3/uL (150-450); Red Blood Count 4.43 10^6/uL (4.20-5.40); Red Cell Distribution Width 12.9 % (11.0-15.0); White Blood Count 7.5 10^3/uL (4.0-11.0)
[2024-11-14 23:23] LABS: HCG Qualitative Urine* NEGATIVE (NEGATIVE); Internal Control Within Normal Limits
[2024-11-14 23:24] LABS: Bilirubin Urine NEGATIVE (NEGATIVE); Blood Urine NEGATIVE (NEGATIVE); Clarity Urine CLEAR (CLEAR); Color Urine YELLOW (YELLOW); Glucose Urine UA NEGATIVE (NEGATIVE); Ketones Urine 15 mg/dL (NEGATIVE); Leukocyte Esterase Urine NEGATIVE (NEGATIVE); Nitrite Urine NEGATIVE (NEGATIVE); Protein Urine TRACE mg/dL (NEG/TRACE); Specific Gravity Urine >=1.030 (1.005-1.025)
[2024-11-14 23:30] LABS: Bacteria Urine TRACE #/HPF (NONE SEEN); Cast Seen? NONE SEEN #/LPF (NONE SEEN); Crystals Seen? None Seen #/HPF (None Seen); Mucus Urine MODERATE (NONE SEEN); RBC Urine 0-2 #/HPF (0-2); Squamous Epithelial Cell Urine MODERATE #/LPF (NONE/RARE); WBC Urine 0-2 #/HPF (NONE SEEN)
[2024-11-14 23:30] LABS: Anion Gap 16.1
[2024-11-14 23:31] LABS: Alanine Aminotransferase 18 U/L (14-59); Albumin Globulin Ratio 1.3; Albumin Level 4.3 g/dL (3.4-5.0); Alkaline Phosphatase 64 U/L (46-116); Aspartate Amino Transferase 27 U/L (15-37); BUN Creatinine Ratio 9.9; Bilirubin Total 1.6 mg/dL (0.2-1.0); Calcium 9.5 mg/dL (8.5-10.1); Chloride 103 mmol/L (98-107); Estimated GFR (African America >60 (>=60 mL/min/1.73m^2); Estimated GFR (Non-African Ame >60 (>=60 mL/min/1.73m^2); Globulin 3.4 g/dL; Glucose 88 mg/dL (74-106); Potassium 4.1 mmol/L (3.5-5.1); Sodium 140 mmol/L (136-145); Total Protein 7.7 g/dL (6.4-8.2)
[2024-11-14 23:35] LABS: Cannabinoid Screen Urine POSITIVE (NEGATIVE)
[2024-11-14 23:36] LABS: Amphetamine Screen Urine NEGATIVE (NEGATIVE); Barbiturates Screen Urine NEGATIVE (NEGATIVE); Benzodiazepines Screen Urine NEGATIVE (NEGATIVE); Buprenorphine Screen Urine NEGATIVE (NEGATIVE); Cocaine Screen Urine NEGATIVE (NEGATIVE); Methadone Screen Urine NEGATIVE (NEGATIVE); Methamphetamines Screen Urine NEGATIVE (NEGATIVE); Opiate Screen Urine NEGATIVE (NEGATIVE); Oxycodone Screen Urine NEGATIVE (NEGATIVE); Phencyclidine Screen Urine NEGATIVE (NEGATIVE); Tricyclic Antidepressant Urine NEGATIVE (NEGATIVE)
[2024-11-14 23:37] LABS: Acetaminophen <2.0 ug/mL (10.0-30.0); Ethanol <3 mg/dL; Salicylate <2.8 mg/dL (<=19.9)
--- NOTE | 2024-11-15 00:32 | PC.NURSE ---
Spoke to asaf at [facility]. She states they will be safety planning pt and that her grandmother will pick her up. waiting for fax of safety plan
== END 2024-11-15 01:19 | disposition home or self-care (01) ==
PROVIDERS: Emergency Provider Emergency Medicine; PCP Nurse Practitioner Family
DX: F31.9 Bipolar disorder, unspecified (principal); F41.8 Other specified anxiety disorders; T43.216A Underdosing of selective serotonin and norepinephrine reuptake inhibitors, initial encounter; T43.596A Underdosing of other antipsychotics and neuroleptics, initial encounter; Z91.128 Patient's intentional underdosing of medication regimen for other reason
CPT/HCPCS: 36415; 80053; 80179; 80307; 80320; 80329; 81001; 84703; 85025; 93005; 99284

== ENCOUNTER 2025-01-15 14:10 | Emergency (ER) | payer OTHER, SELFPAY ==
[2025-01-15 14:14] VITALS: BP 128/81; PULSE 91; TEMP 37.1; O2SAT 100; BMI 25.8
--- NOTE | 2025-01-15 14:44 | ED_ITS ---
HPI HPI - General Adult General Chief complaint: Abdominal Pain Stated complaint: ABDOMINAL PAIN - 5 WEEKS PREG Time Seen by Provider: 01/15/25 14:11 Source: patient Mode of arrival: walk-in Limitations: no limitations History of Present Illness HPI narrative: Patient presents to ED complaining of nausea vomiting and some stomach bloating. Patient states she got sick at work prior to arrival and they had her leave work. She said she came right to the emergency room. She is a G2, P1 at about 5 weeks gestation. She said she has had an ultrasound during this and everything looked normal at that time last week. She did say she is having vaginal bleeding although in her first she said she had vaginal bleeding every month throughout the entire . Patient states she has been feeling bloated and having some abdominal pressure from the bloating. Patient states she has been able to eat and drink okay so far during her . Denies any UTI symptoms. Resting comfortably in the bed in no acute distress. Related Data Previous Rx's ?Medication ?Instructions ?Recorded cephalexin 500 mg capsule 500 mg PO Q8H 7 days #21 caps 11/20/23 mupirocin 2 % topical ointment 1 applic topical BID #15 grams 11/20/23 sulfamethoxazole 800 1 tab PO BID 7 days #14 tabs 11/20/23 mg-trimethoprim 160 mg tablet (Bactrim DS) cephalexin 500 mg capsule 500 mg PO Q8H 10 days #30 caps 04/08/24 ketorolac 10 mg tablet 10 mg PO TID PRN pain #10 tabs 04/08/24 sulfamethoxazole 800 1 tab PO BID 10 days #20 tabs 04/08/24 mg-trimethoprim 160 mg tablet (Bactrim DS) ondansetron 4 mg disintegrating 4 mg PO DAILY PRN nausea and 01/15/25 tablet vomiting #15 tabs Allergies Allergy/AdvReac Type Severity Reaction Status Date / Time No Known Drug Allergies Allergy Verified 11/14/24 22:11 Opioid HPI Opioid Management Most Recent Opioid Data: Ur Phencyclidine Scrn Negative (NEGATIVE) 11/14/24 22:50 11/02 12/24 Review of Systems ROS Status of ROS 10 or more systems reviewed and unremark able except as noted in history and below PFSH PFSH Social History Smoking status: Never smoker Little interest or pleasure in doing things: not at all Feeling down, depressed, or hopeless: not at all Exam Narrative Exam Narrative: General: alert, no acute distress Cardiovascular: regular rate and rhythm, normal peripheral perfusion. Respiratory: Lungs CTA, respirations non labored. Extremities: no deformity, no trauma. Neurological: oriented x 4, LOC appropriate for age. Abdomen soft nontender nondistended no rebound no guarding Constitutional Vital Signs, click to edit/add: Last Vital Signs Temp 98.8 F 01/15/25 14:14 Pulse 91 H 01/15/25 14:14 Resp 18 01/15/25 14:14 BP 128/81 01/15/25 14:14 Pulse Ox 100 01/15/25 14:14 O2 Del Method Room Air 01/15/25 14:14 Course Vital Signs Vital signs: Vital Signs Temperature 98.8 F 01/15/25 14:14 Pulse Rate 91 H 01/15/25 14:14 Respiratory Rate 18 01/15/25 14:14 Blood Pressure 128/81 01/15/25 14:14 Pulse Oximetry 100 01/15/25 14:14 Oxygen Delivery Method Room Air 01/15/25 14:14 Temperature 98.8 F 01/15/25 14:14 Pulse Rate 91 H 01/15/25 14:14 Respiratory Rate 18 01/15/25 14:14 Blood Pressure 128/81 01/15/25 14:14 Pulse Oximetry 100 01/15/25 14:14 Oxygen Delivery Method Room Air 01/15/25 14:14 Medical Decision Making MDM Narrative Medical decision making narrative: Patient's labs are negative for acute findings. Beta quant was appropriate however I do not have a previous one for comparison. Patient ultrasound showed no heart tones measuring 6 weeks 1 day. This is concerning for demise however it could be too early to find a heartbeat at this point. Patient has an appointment tomorrow with Dr. Robertson for further care. Patient will be going to her appointment. Return to ED if worsening symptoms otherwise follow- up outpatient for continued management. Patient comfortable with care plan for home. Differential Diagnosis Differential Diagnosis: Miscarriage, UTI Lab Data Lab results reviewed: Yes I reviewed the patient's lab results Labs: Lab Results 01/15/25 01/15/25 Range/Units 14:30 14:37 WBC 6.4 (4.0-11.0) 10^3/uL RBC 4.14 L (4.20-5.40) 10^6/uL Hgb 12.6 (12.0-16.0) g/dL Hct 36.2 (36.0-48.0) % MCV 87.4 (81.0-99.0) fL MCH 30.4 (26.7-34.0) pg MCHC 34.8 (29.9-35.2) g/dL RDW 13.2 (11.0-15.0) % Plt Count 210 (150-450) 10^3/uL MPV 10.3 (9.5-13.5) fL Neut % (Auto) 68.7 (43.0-75.0) % Lymph % (Auto) 23.1 (20.5-60.0) % [place] % (Auto) 6.6 (1.7-12.0) % Eos % (Auto) 1.1 (0.9-7.0) % Baso % (Auto) 0.3 (0.2-2.0) % Neut # (Auto) 4.4 (1.4-6.5) 10^3/uL Lymph # (Auto) 1.5 (1.2-3.8) 10^3/uL [place] # (Auto) 0.4 (0.3-0.8) 10^3/uL Eos # (Auto) 0.1 (0.0-0.7) 10^3/uL Baso # (Auto) 0.0 (0.0-0.1) 10^3/uL Abs Immat Gran (auto) 0.01 (0.00-0.03) 10^3/uL Imm/Tot Granulo (auto) 0.2 (0.0-0.5) % Sodium 138 (136-145) mmol/L Potassium 4.1 (3.5-5.1) mmol/L Chloride 103 (98-107) mmol/L Carbon Dioxide 25.2 (21.0-32.0) mmol/L Anion Gap 13.9 BUN 8.0 (7.0-18.0) mg/dL Creatinine 0.68 (0.55-1.02) mg/dL Est GFR ( Amer) >60 (>=60 mL/min/1.73m^2) Est GFR (Non-Af Amer) >60 (>=60 mL/min/1.73m^2) BUN/Creatinine Ratio 11.8 Glucose 86 (74-106) mg/dL Calcium 9.2 (8.5-10.1) mg/dL Total Bilirubin 1.4 H (0.2-1.0) mg/dL AST 19 (15-37) U/L ALT 23 (14-59) U/L Alkaline Phosphatase 58 (46-116) U/L Total Protein 7.3 (6.4-8.2) g/dL Albumin 4.0 (3.4-5.0) g/dL Globulin 3.3 g/dL Albumin/Globulin Ratio 1.2 HCG, Quant 23172 mIU/mL Urine Color Lt. yellow (YELLOW) Urine Clarity Clear (CLEAR) Urine pH 7.5 (5.0-9.0) Ur Specific [place] 1.020 (1.005-1.025) Urine Protein Negative (NEG/TRACE) mg/dL Urine Glucose (UA) Negative (NEGATIVE) mg/dL Urine Ketones Negative (NEGATIVE) mg/dL Urine Occult Blood Large A (NEGATIVE) Urine Nitrite Negative (NEGATIVE) Urine Bilirubin Negative (NEGATIVE) Urine Urobilinogen 0.2 (0.2-1.0) EU/dL Ur Leukocyte Esterase Negative (NEGATIVE) Urine RBC 2-5 A (0-2) #/HPF Urine WBC 0-2 A (NONE SEEN) #/HPF Ur Squamous Epith Cells Few A (NONE/RARE) #/LPF Urine Crystals None seen (None Seen) #/HPF Urine Bacteria Small A (NONE SEEN) #/HPF Urine Casts None seen (NONE SEEN) #/LPF Urine Mucus Trace A (NONE SEEN) Ur Culture Indicated? Yes-[facility] Imaging Data US - abdomen: Attestation: I have reviewed the pertinent imaging results. Discharge Plan Discharge Chief Complaint: Abdominal Pain Clinical Impression: Abdominal pain Patient Disposition: Home, Self-Care Time of Disposition Decision: 16:32 Condition: Good Mode of Transportation: Private Vehicle Prescriptions / Home Meds: New ondansetron 4 mg tablet,disintegrating 4 mg PO DAILY PRN (Reason: nausea and vomiting) Qty: 15 0RF No Action sulfamethoxazole-trimethoprim [Bactrim DS] 800-160 mg tablet 1 tab PO BID 7 Days Qty: 14 0RF cephalexin 500 mg capsule 500 mg PO Q8H 7 Days Qty: 21 0RF mupirocin 2 % ointment 1 applic topical BID Qty: 15 0RF sulfamethoxazole-trimethoprim [Bactrim DS] 800-160 mg tablet 1 tab PO BID 10 Days Qty: 20 0RF ketorolac 10 mg tablet 10 mg PO TID PRN (Reason: pain) Qty: 10 0RF cephalexin 500 mg capsule 500 mg PO Q8H 10 Days Qty: 30 0RF Print Language: Kazakh Instructions: Abdominal Pain in (ED) Referrals: Robi Robertson DO [Physician] - 1 week SANTINO CUEVA [Primary Care Provider] - 1 week Discharge Date/Time: 01/15/25 17:05
[2025-01-15 14:46] LABS: Bilirubin Urine NEGATIVE (NEGATIVE); Blood Urine LARGE (NEGATIVE); Clarity Urine CLEAR (CLEAR); Color Urine LT. YELLOW (YELLOW); Glucose Urine UA NEGATIVE (NEGATIVE); Ketones Urine NEGATIVE (NEGATIVE); Leukocyte Esterase Urine NEGATIVE (NEGATIVE); Nitrite Urine NEGATIVE (NEGATIVE); Protein Urine NEGATIVE (NEG/TRACE); Urobilinogen Urine 0.2 EU/dL (0.2-1.0); pH Urine 7.5 (5.0-9.0)
[2025-01-15 14:48] LABS: Urine Microscopic Indicated YES
[2025-01-15 14:52] LABS: Basophils Percent Auto 0.3 % (0.2-2.0); Eosinophils Absolute Auto 0.1 10^3/uL (0.0-0.7); Eosinophils Percent Auto 1.1 % (0.9-7.0); Hematocrit 36.2 % (36.0-48.0); Hemoglobin 12.6 g/dL (12.0-16.0); Immature Granulocytes Abs Auto 0.01 10^3/uL (0.00-0.03); Immature Granulocytes Pct Auto 0.2 % (0.0-0.5); Lymphocytes Absolute Auto 1.5 10^3/uL (1.2-3.8); Lymphocytes Percent Auto 23.1 % (20.5-60.0); Mean Corpuscular HGB Conc 34.8 g/dL (29.9-35.2); Mean Corpuscular Hemoglobin 30.4 pg (26.7-34.0); Mean Corpuscular Volume 87.4 fL (81.0-99.0); Mean Platelet Volume 10.3 fL (9.5-13.5); Monocytes Absolute Auto 0.4 10^3/uL (0.3-0.8); Monocytes Percent Auto 6.6 % (1.7-12.0); Neutrophils Absolute Auto 4.4 10^3/uL (1.4-6.5); Neutrophils Percent Auto 68.7 % (43.0-75.0); Platelet Count 210 10^3/uL (150-450); Red Blood Count 4.14 10^6/uL (4.20-5.40); Red Cell Distribution Width 13.2 % (11.0-15.0); White Blood Count 6.4 10^3/uL (4.0-11.0)
[2025-01-15 14:55] LABS: Bacteria Urine SMALL #/HPF (NONE SEEN); Cast Seen? NONE SEEN #/LPF (NONE SEEN); Crystals Seen? None Seen #/HPF (None Seen); Mucus Urine TRACE (NONE SEEN); Squamous Epithelial Cell Urine FEW #/LPF (NONE/RARE); Urine Culture Indicated YES-FRMC; WBC Urine 0-2 #/HPF (NONE SEEN)
[2025-01-15 15:13] LABS: Alanine Aminotransferase 23 U/L (14-59); Albumin Globulin Ratio 1.2; Alkaline Phosphatase 58 U/L (46-116); Anion Gap 13.9; Aspartate Amino Transferase 19 U/L (15-37); BUN Creatinine Ratio 11.8; Bilirubin Total 1.4 mg/dL (0.2-1.0); Calcium 9.2 mg/dL (8.5-10.1); Carbon Dioxide 25.2 mmol/L (21.0-32.0); Chloride 103 mmol/L (98-107); Estimated GFR (African America >60 (>=60 mL/min/1.73m^2); Estimated GFR (Non-African Ame >60 (>=60 mL/min/1.73m^2); Globulin 3.3 g/dL; Glucose 86 mg/dL (74-106); Potassium 4.1 mmol/L (3.5-5.1); Sodium 138 mmol/L (136-145); Total Protein 7.3 g/dL (6.4-8.2)
[2025-01-15 15:49] LABS: HCG Quantitative 27851 mIU/mL
[2025-01-15] MEDS: ONDANSETRON 4 MG RAPDIS TABLET SL (16:43)
--- NOTE | 2025-01-15 16:50 | PC.NURSE ---
4mg ODT Zofran given at 1643 per provider orders.
== END 2025-01-15 17:05 | disposition home or self-care (01) ==
PROVIDERS: Emergency Provider Emergency Medicine; PCP Nurse Practitioner Family
DX: O26.891 Other specified pregnancy related conditions, first trimester (principal); R10.9 Unspecified abdominal pain; O21.9 Vomiting of pregnancy, unspecified; O20.9 Hemorrhage in early pregnancy, unspecified; Z3A.01 Less than 8 weeks gestation of pregnancy
CPT/HCPCS: 36415; 76817; 80053; 81001; 84702; 85025; 87086; 99285; Q0162

== ENCOUNTER 2025-01-21 14:53 | Emergency (ER) | payer OTHER, SELFPAY ==
[2025-01-21 14:57] VITALS: BP 135/76; PULSE 88; TEMP 36.5; O2SAT 100; BMI 25.8
--- NOTE | 2025-01-21 15:31 | ED_ITS ---
HPI HPI - General Adult General Chief complaint: Vaginal Bleeding Stated complaint: VAGINAL BLEEDING Time Seen by Provider: 01/21/25 14:54 Source: patient Mode of arrival: walk-in History of Present Illness HPI narrative: 24-year-old male presents for vaginal bleeding. This has been ongoing for a few days and she is worried mostly about losing too much blood. She states that she is having a miscarriage. She had been seen here on January 15, 6 days ago, and at that time had an ultrasound which did not show a heartbeat. She states she saw her rn supplemental the next day and she states they did an ultrasound and could not find a heartbeat and she was told by her rn supplemental, Dr. Robertson, that she is having a miscarriage. No syncope. She has diffuse abdominal pain across her lower abdomen Related Data Previous Rx's ?Medication ?Instructions ?Recorded acetaminophen 300 mg-codeine 30 mg 1 tab PO Q6H PRN pain 5 days #20 01/21/25 tablet tabs Allergies Allergy/AdvReac Type Severity Reaction Status Date / Time No Known Drug Allergies Allergy Verified 01/21/25 14:57 Opioid HPI Opioid Management Most Recent Opioid Data: Ur Phencyclidine Scrn Negative (NEGATIVE) 11/14/24 22:50 11/02 12/24 Review of Systems ROS Narrative A ten point review of systems is negative except as noted above. PFSH PFSH Social History Smoking status: Never smoker Little interest or pleasure in doing things: not at all Feeling down, depressed, or hopeless: not at all Exam Narrative Exam Narrative: Nurses note and vital signs reviewed and patient is not hypoxic. General: The patient appears well and in no apparent distress. Skin: Warm, dry, no pallor noted. There is no rash noted. Head: Normocephalic, atraumatic Eye: Normal conjunctiva, no drainage Ears, Nose, Mouth, and Throat: oral mucosa is moist. Nares patent. Cardiovascular: Regular Rate and Rhythm Respiratory: Patient is in no distress, no accessory muscle use, lungs are clear to auscultation, no wheezing, rales or rhonchi Back: non-tender GI: Soft, mild tenderness across the lower abdomen Musculoskeletal: The patient has no evidence of calf tenderness, no pitting edema, symmetrical pulses noted bilaterally Neurological: A&O, normal speech Psychiatric: Cooperative Constitutional Vital Signs, click to edit/add: Last Vital Signs Temp 97.7 F 01/21/25 14:57 Pulse 70 01/21/25 17:41 Resp 20 01/21/25 17:41 BP 110/70 01/21/25 17:41 Pulse Ox 100 01/21/25 17:41 O2 Del Method Room Air 01/21/25 17:41 Course Vital Signs Vital signs: Vital Signs Temperature 97.7 F 01/21/25 14:57 Pulse Rate 88 01/21/25 14:57 Respiratory Rate 20 01/21/25 14:57 Blood Pressure 135/76 01/21/25 14:57 Pulse Oximetry 100 01/21/25 14:57 Oxygen Delivery Method Room Air 01/21/25 14:57 Temperature 97.7 F 01/21/25 14:57 Pulse Rate 70 01/21/25 17:41 Respiratory Rate 20 01/21/25 17:41 Blood Pressure 110/70 01/21/25 17:41 Pulse Oximetry 100 01/21/25 17:41 Oxygen Delivery Method Room Air 01/21/25 17:41 Medical Decision Making MDM Narrative Medical decision making narrative: hCG titer is down significantly and ultrasound shows no cardiac activity. Case discussed with Dr. Robertson and the patient is being discharged home with a prescription for Tylenol 3. He will contact her tomorrow to discuss having a D&C performed. Treatment diagnosis and follow-up were discussed with the patient and her mother. Differential Diagnosis Differential Diagnosis: Miscarriage, incomplete miscarriage Medical Records Medical records reviewed: Yes I reviewed the patient's medical records Lab Data Lab results reviewed: Yes I reviewed the patient's lab results Labs: Lab Results 01/21/25 Range/Units 15:30 WBC 6.9 (4.0-11.0) 10^3/uL RBC 3.96 L (4.20-5.40) 10^6/uL Hgb 12.2 (12.0-16.0) g/dL Hct 34.9 L (36.0-48.0) % MCV 88.1 (81.0-99.0) fL MCH 30.8 (26.7-34.0) pg MCHC 35.0 (29.9-35.2) g/dL RDW 13.2 (11.0-15.0) % Plt Count 208 (150-450) 10^3/uL MPV 9.9 (9.5-13.5) fL Neut % (Auto) 72.7 (43.0-75.0) % Lymph % (Auto) 19.3 L (20.5-60.0) % [place] % (Auto) 6.1 (1.7-12.0) % Eos % (Auto) 1.2 (0.9-7.0) % Baso % (Auto) 0.6 (0.2-2.0) % Neut # (Auto) 5.0 (1.4-6.5) 10^3/uL Lymph # (Auto) 1.3 (1.2-3.8) 10^3/uL [place] # (Auto) 0.4 (0.3-0.8) 10^3/uL Eos # (Auto) 0.1 (0.0-0.7) 10^3/uL Baso # (Auto) 0.0 (0.0-0.1) 10^3/uL Abs Immat Gran (auto) 0.01 (0.00-0.03) 10^3/uL Imm/Tot Granulo (auto) 0.1 (0.0-0.5) % Sodium 140 (136-145) mmol/L Potassium 3.6 (3.5-5.1) mmol/L Chloride 104 (98-107) mmol/L Carbon Dioxide 26.6 (21.0-32.0) mmol/L Anion Gap 13.0 BUN 7.0 (7.0-18.0) mg/dL Creatinine 0.66 (0.55-1.02) mg/dL Est GFR ( Amer) >60 (>=60 mL/min/1.73m^2) Est GFR (Non-Af Amer) >60 (>=60 mL/min/1.73m^2) BUN/Creatinine Ratio 10.6 Glucose 88 (74-106) mg/dL Calcium 8.9 (8.5-10.1) mg/dL HCG, Quant 24039 mIU/mL Imaging Data Pelvic ultrasound: Radiologist's impression: Single intrauterine , heart activity is not noted Discharge Plan Discharge Chief Complaint: Vaginal Bleeding Clinical Impression: Incomplete miscarriage Patient Disposition: Home, Self-Care Time of Disposition Decision: 18:38 Condition: Good Mode of Transportation: Private Vehicle Prescriptions / Home Meds: New acetaminophen-codeine 300-30 mg tablet 1 tab PO Q6H PRN (Reason: pain) 5 Days Qty: 20 0RF Print Language: Setswana Instructions: Miscarriage (ED) Additional Instructions: Dr. Robertson will contact you tomorrow regarding a D&C, possibly to be performed on Monday. Referrals: SANTINO CUEVA [Primary Care Provider] - 1 week
[2025-01-21 15:34] LABS: Basophils Percent Auto 0.6 % (0.2-2.0); Eosinophils Absolute Auto 0.1 10^3/uL (0.0-0.7); Eosinophils Percent Auto 1.2 % (0.9-7.0); Hematocrit 34.9 % (36.0-48.0); Hemoglobin 12.2 g/dL (12.0-16.0); Immature Granulocytes Abs Auto 0.01 10^3/uL (0.00-0.03); Immature Granulocytes Pct Auto 0.1 % (0.0-0.5); Lymphocytes Absolute Auto 1.3 10^3/uL (1.2-3.8); Lymphocytes Percent Auto 19.3 % (20.5-60.0); Mean Corpuscular Hemoglobin 30.8 pg (26.7-34.0); Mean Corpuscular Volume 88.1 fL (81.0-99.0); Mean Platelet Volume 9.9 fL (9.5-13.5); Monocytes Absolute Auto 0.4 10^3/uL (0.3-0.8); Monocytes Percent Auto 6.1 % (1.7-12.0); Neutrophils Percent Auto 72.7 % (43.0-75.0); Platelet Count 208 10^3/uL (150-450); Red Blood Count 3.96 10^6/uL (4.20-5.40); Red Cell Distribution Width 13.2 % (11.0-15.0); White Blood Count 6.9 10^3/uL (4.0-11.0)
[2025-01-21 16:13] LABS: BUN Creatinine Ratio 10.6; Calcium 8.9 mg/dL (8.5-10.1); Carbon Dioxide 26.6 mmol/L (21.0-32.0); Chloride 104 mmol/L (98-107); Estimated GFR (African America >60 (>=60 mL/min/1.73m^2); Estimated GFR (Non-African Ame >60 (>=60 mL/min/1.73m^2); Glucose 88 mg/dL (74-106); HCG Quantitative 12230 mIU/mL; Potassium 3.6 mmol/L (3.5-5.1); Sodium 140 mmol/L (136-145)
[2025-01-21 17:41] VITALS: BP 110/70; PULSE 70; O2SAT 100
[2025-01-21] MEDS: ACETAMINOPHEN 300 MG/ 30 MG CODEINE TABLET 1 TAB PO (18:46)
== END 2025-01-21 18:51 | disposition home or self-care (01) ==
PROVIDERS: Emergency Provider Emergency Medicine; PCP Nurse Practitioner Family
DX: O03.4 Incomplete spontaneous abortion without complication (principal)
CPT/HCPCS: 36415; 76817; 80048; 84702; 85025; 99285

== ENCOUNTER 2025-01-23 09:44 | Outpatient (OUT) | payer OTHER, SELFPAY | END 2025-01-23 09:45 | disposition home or self-care (01) | LOC: PST 09:44 | PROVIDERS: PCP Nurse Practitioner Family; Visit Provider Obstetrics & Gynecology | DX: Z01.810 Encounter for preprocedural cardiovascular examination (principal); Z01.812 Encounter for preprocedural laboratory examination; O02.1 Missed abortion | CPT/HCPCS: 71046; 86850; 86900; 86901 ==

== ENCOUNTER 2025-01-24 07:04 | Day surgery (SDC) | payer OTHER, SELFPAY ==
[2025-01-23 09:53] VITALS: BP 118/73; PULSE 82; TEMP 36.4; O2SAT 100; BMI 26.1
[2025-01-24 07:19] LABS: Basophils Percent Auto 0.4 % (0.2-2.0); Eosinophils Absolute Auto 0.1 10^3/uL (0.0-0.7); Eosinophils Percent Auto 1.5 % (0.9-7.0); Hematocrit 33.3 % (36.0-48.0); Hemoglobin 11.4 g/dL (12.0-16.0); Immature Granulocytes Abs Auto 0.02 10^3/uL (0.00-0.03); Immature Granulocytes Pct Auto 0.4 % (0.0-0.5); Lymphocytes Absolute Auto 1.7 10^3/uL (1.2-3.8); Lymphocytes Percent Auto 30.7 % (20.5-60.0); Mean Corpuscular HGB Conc 34.2 g/dL (29.9-35.2); Mean Corpuscular Hemoglobin 30.6 pg (26.7-34.0); Mean Corpuscular Volume 89.5 fL (81.0-99.0); Mean Platelet Volume 9.9 fL (9.5-13.5); Monocytes Absolute Auto 0.4 10^3/uL (0.3-0.8); Monocytes Percent Auto 7.3 % (1.7-12.0); Neutrophils Absolute Auto 3.3 10^3/uL (1.4-6.5); Neutrophils Percent Auto 59.7 % (43.0-75.0); Platelet Count 187 10^3/uL (150-450); Red Blood Count 3.72 10^6/uL (4.20-5.40); Red Cell Distribution Width 12.9 % (11.0-15.0); White Blood Count 5.5 10^3/uL (4.0-11.0)
[2025-01-24 07:20] VITALS: BP 114/63; PULSE 75; TEMP 36.2; O2SAT 99; BMI 26.5
[2025-01-24 08:34] LABS: HCG Quantitative 2119 mIU/mL
--- NOTE | 2025-01-28 08:23 | PC.NURSE ---
0849: pt's case cancelled per ,pt discharged at 0845. pt given instructions and educated by .
== END 2025-01-24 08:45 | disposition home or self-care (01) ==
LOC: SURGOUT 07:05
PROVIDERS: PCP Nurse Practitioner Family; Visit Provider Obstetrics & Gynecology
DX: O02.1 Missed abortion (principal); Z53.8 Procedure and treatment not carried out for other reasons
CPT/HCPCS: 59820; 36415; 76856; 84702; 85025

== ENCOUNTER 2025-02-12 09:24 | Emergency (ER) | payer OTHER, SELFPAY ==
[2025-02-12 09:34] VITALS: BP 139/99; PULSE 79; TEMP 37; O2SAT 97; BMI 25.8
--- NOTE | 2025-02-12 09:45 | ED.GENADUL1 ---
HPI HPI - General Adult General Chief complaint: Dental/Oral Stated complaint: dental pain Time Seen by Provider: 02/12/25 09:40 Source: patient and friend Mode of arrival: walk-in Limitations: no limitations History of Present Illness HPI narrative: 24-year-old female presents to the emergency department for a chief complaint of pain in her tooth. She is complaining of pain which is severe to the right lower posterior dentition. She knows she has a bad tooth and she states she is scheduled to see a dentist in a few months for extraction. No fever or difficulty breathing or swallowing. Related Data Previous Rx's ?Medication ?Instructions ?Recorded acetaminophen 300 mg-codeine 30 mg 1 tab PO Q6H PRN pain 5 days #20 02/12/25 tablet tabs ibuprofen 800 mg tablet 800 mg PO Q8H PRN pain #20 tabs 02/12/25 penicillin V potassium 250 mg 250 mg PO QID 10 days #40 tabs 02/12/25 tablet Allergies Allergy/AdvReac Type Severity Reaction Status Date / Time No Known Drug Allergies Allergy Verified 02/12/25 09:34 Opioid HPI Opioid Management Most Recent Opioid Data: Ur Phencyclidine Scrn, (NEGATIVE) Negative 11/14/24, 22:50 Review of Systems ROS Narrative A ten point review of systems is negative except as noted above. [facility] Medical History (Updated 02/12/25 @ 09:43 by Morgan Franklin MD) Pierced eyebrow infection ?S01.139A - Puncture wound without foreign body of unspecified eyelid and periocular area, initial encounter (ICD-10) ?L08.9 - Local infection of the skin and subcutaneous tissue, unspecified (ICD-10) Impetigo ?L01.00 - Impetigo, unspecified (ICD-10) Mood disorder ?F39 - Unspecified mood [affective] disorder (ICD-10) Situational mixed anxiety and depressive disorder ?F43.23 - Adjustment disorder with mixed anxiety and depressed mood (ICD-10) Abdominal pain ?R10.9 - Unspecified abdominal pain (ICD-10) Low iron ?E61.1 - Iron deficiency (ICD-10) Anxiety ?F41.9 - Anxiety disorder, unspecified (ICD-10) Menorrhagia ?N92.0 - Excessive and frequent menstruation with regular cycle (ICD-10) Dysmenorrhea ?N94.6 - Dysmenorrhea, unspecified (ICD-10) Seasonal allergies ?J30.2 - Other seasonal allergic rhinitis (ICD-10) Family History (Updated 01/23/25 @ 09:58 by Lexi Alcaraz) Other Family history of Alzheimer's disease Family history of breast cancer Family history of cancer Family history of diabetes mellitus Family history of heart disease Social History (Updated 01/24/25 @ 07:28 by Skye Dunn) Within the past year, how often did you have a drink containing alcohol: monthly or less Do you use any of these nicotine containing products: vaping products Non-prescribed substance use: denies use 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 General: The patient appears well and in no apparent distress. Patient is resting comfortably on cart. Skin: Warm, dry, no pallor noted. There is no rash noted. Head: Normocephalic, atraumatic Eye: Normal conjunctiva, no drainage Ears, Nose, Mouth, and Throat: oral mucosa is moist. Nares patent. No facial swelling or erythema. No swelling to the floor of her mouth. She is handling oral secretions well. Right mandibular third molar is quite decayed, nearly down to the gumline. No bleeding or pus present. Cardiovascular: Regular Rate and Rhythm Respiratory: Patient is in no distress, no accessory muscle use, lungs are clear to auscultation, no wheezing, rales or rhonchi Back: non-tender GI: Soft and nontender Musculoskeletal: No joint swelling Neurological: A&O, normal speech Psychiatric: Cooperative Constitutional Vital Signs, click to edit/add: Last Vital Signs Temp 98.6 F 02/12/25 09:34 Pulse 79 02/12/25 09:34 Resp 20 02/12/25 09:34 BP 139/99 H 02/12/25 09:34 Pulse Ox 97 02/12/25 09:34 O2 Del Method Room Air 02/12/25 09:34 Course Vital Signs Vital signs: Vital Signs Temperature 98.6 F 02/12/25 09:34 Pulse Rate 79 02/12/25 09:34 Respiratory Rate 20 05/14/25 09:34 Blood Pressure 139/99 H 02/12/25 09:34 Pulse Oximetry 97 02/12/25 09:34 Oxygen Delivery Method Room Air 02/12/25 09:34 Temperature 98.6 F 02/12/25 09:34 Pulse Rate 79 02/12/25 09:34 Respiratory Rate 20 02/12/25 09:34 Blood Pressure 139/99 H 02/12/25 09:34 Pulse Oximetry 97 02/12/25 09:34 Oxygen Delivery Method Room Air 02/12/25 09:34 Medical Decision Making MDM Narrative Medical decision making narrative: She was prescribed penicillin and Tylenol 3 and ibuprofen. She will follow-up with her dentist. Treatment diagnosis and follow-up were discussed with the patient. Discharge Plan Discharge Chief Complaint: Dental/Oral Clinical Impression: Dental caries Patient Disposition: Home, Self-Care Time of Disposition Decision: 09:42 Condition: Good Mode of Transportation: Private Vehicle Prescriptions / Home Meds: New acetaminophen-codeine 300-30 mg tablet 1 tab PO Q6H PRN (Reason: pain) 5 Days Qty: 20 0RF penicillin V potassium 250 mg tablet 250 mg PO QID 10 Days Qty: 40 0RF ibuprofen 800 mg tablet 800 mg PO Q8H PRN (Reason: pain) Qty: 20 0RF Print Language: Bulgarian Instructions: Toothache (ED) Referrals: SANTINO CUEVA [Primary Care Provider, Family Practice] - 1 week
--- OUTSIDE RECORDS SUMMARY | 2025-02-12 09:52 | XMS_ITS | CCD ---
Author Organization [facility] Care Team Providers Care Production Tester Name Role Phone Pcp, None Primary Care Provider UnavailBRENDAN Lerma Attending Unavailable BRENDAN PEREZ Referring Unavailable PCP, NONE Primary Care Unavailable BELLE OCHOA Attending Unavailable BELLE OCHOA Referring Unavailable PCP, NONE Primary Care Unavailable PCP, NONE Primary Care Unavailable CONCHITA CARRION Attending Unavailable CONCHITA CARRION Admitting Unavailable BELLE OCHOA Attending Unavailable BELLE OCHAO Referring Unavailable PCP, NONE Primary Care Unavailable BELLE OCHOA Admitting Unavailable Zoila Manzo Attending Unavailable Zoila Manzo Admitting Unavailable Octavio Martinez Attending Unavailab Octavio Alexandra Admitting Unavailab le NON STAFF Primary Care Unavailable Unavailable Primary Care Provider Unavailvik grayson NON STAFF Primary Care Provider UnavailOctavio Lion MD Attending Provider Zoila Manzo DO Attending Provider [phone] Medications Current Medications Medication Drug Class(es) Dates [...] oral solution (3 sources) alpha-Adrenergic Agonist, Uncompetitive T-gftqdo-L-aspart ate Receptor Antagonist, Sigma-1 Agonist Start: 02-04-2022 [...] Name Value Interpretation Reference Range Facil ity ALL CBC WITH AUTO DIFFon BASOPHILS ABSOLUTE AUTO 0 N [facility] Basophils/100 WBC (Bld) 0.4 % 0.2 - 2.0 % [facility] Eosinophils/100 WBC (Bld) 1.5 % 0.9 - 7.0 % [facility] Erythrocyte distribution width (RBC) [Ratio] 12.9 % 11.0 - 15.0 % [facility] Hematocrit (Bld) [Volume fraction] 33.3 % Low 36.0 - 48.0 % [facility] Hemoglobin (Bld) [Mass/Vol] 11.4 g/dL Low 12.0 - 16.0 g/dL [facility] IMMATURE GRANULOCYTES ABS AUTO 0.02 [facility] Immature granulocytes/100 WBC (Bld) 0.4 % 0.0 - 0.5 % [facility] Interpretation and review of laboratory results Abnormal [facility] LYMPHOCYTES ABSOLUTE AUTO 1.7 [facility] Lymphocytes/100 WBC (Bld) 30.7 % 20.5 - 60.0 % [facility] MCH (RBC) [Entitic mass] 30.6 pg 26.7 - 34.0 pg [facility] MCHC (RBC) [Mass/Vol] 34.2 g/dL 29.9 - 35.2 g/dL [facility] MCV (RBC) [Entitic vol] 89.5 fL 81.0 - 99.0 fL [facility] MONOCYTES ABSOLUTE AUTO 0.4 N [facility] Monocytes/100 WBC (Bld) 7.3 % 1.7 - 12.0 % [facility] NEUTROPHILS ABSOLUTE AUTO 3.3 [facility] Neutrophils/100 WBC (Bld) 59.7 % 43.0 - 75.0 % [facility] Platelet mean volume (Bld) [Entitic vol] 9.9 fL 9.5 - 13.5 fL [facility] EO # 0.1 [facility] PLT 187 [facility] RBC 3.72 Low [facility] WBC 5.5 [facility] ALL TYPE AND SCREENon 2024 ABO and Rh group Nom (Bld) Blood group O Rh(D) positive [facility] , [facility] US OB TRANSVAGINALon 025 US OB TRANSVAGINAL EXAM: US OB TRANSVAGINAL HISTORY: Viability. COMPARISON: Ob ultrasound 01/10/2025. TECHNIQUE: Two-dimensional transvaginal grayscale ultrasound imaging of the pelvis was performed. Color Doppler evaluation of the ovaries was also performed. FINDINGS: The uterus demonstrates a normal homogeneous echotexture. The cervix measures 4.3 cm in length and the cervical os is closed. The right ovary measures 3.1 x 1.7 x 2.3 cm and demonstrates a normal echotexture. There is normal color Doppler flow. The left ovary measures 2.8 x 1.9 x 1.9 cm and demonstrates a normal echotexture. There is normal color Doppler flow. No fluid is present within the cul-de-sac. There is a single, intrauterine gestation identified with a crown-rump length measurement of 0.5 cm, correlating to a gestational age of 6 weeks 2 days (+/- 4 days). No heart tones are identified. A yolk sac is visualized. There is no subchorionic hemorrhage visualized. IMPRESSION: 1. Single, intrauterine gestation with no heart tones. There is also no progression of when compared the prior study. These findings are suggestive of early failure. 2. Normal color Doppler evaluation of the bilateral ovaries. Interpreted by: Electronically signed by VERN BRAVO II, MD, PHD at 16-Jan-2025 01:26:48 PM [facility] Normal Not Available Comment on above: Order Comment: US OB VIABILITY PLEASE PERFORM TRANSVAGINAL ULTRASOUND IF INDICATED No LMP recorded. Urine Cultureon 01-15-2025 Bacteria identified Cx Nom (U) >100,000 colonies/ml mixed bacterial skin contaminants 2 Days PERFORMED BY: [facility] [address] [id number] PATHOLOGIST MANAGER ATHLETICS ANGELIC LESLIE M.D. Normal [facility] Comment on above: Performed By: #### C UU #### [facility] [address] [id number] [facility] US OB TRANSVAGINALon 025 US OB TRANSVAGINAL EXAM: US OB TRANSVAGINAL HISTORY: Dating. COMPARISON: None available. TECHNIQUE: Two-dimensional transvaginal grayscale ultrasound imaging of the pelvis was performed. Color Doppler evaluation of the ovaries was also performed. FINDINGS: The uterus demonstrates a normal homogeneous echotexture. The cervix measures 4.6 cm in length and the cervical os is closed. The right ovary is not visualized due to overlying bowel gas. The left ovary measures 2.5 x 1.8 x 1.8 cm and demonstrates a normal echotexture. There is normal color Doppler flow. No fluid is present within the cul-de-sac. There is a single, intrauterine gestational sac identified with a crown-rump length measurement of 2.8 cm, correlating to a gestational age of 6 weeks 1 days (+/- for days). No heart tones are identified. There is a subchorionic hemorrhage visualized. A yolk sac is visualized. IMPRESSION: 1. Single, intrauterine gestational sac identified. No heart tones are visualized on today's exam. This could represent early failure versus early gestational age. Continue serial beta HCG measurements and a short-term follow-up ultrasound is recommended. 2. Subchorionic hemorrhage. 3. Normal color Doppler evaluation of the left ovary, the right ovary was not visualized. Interpreted by: Electronically signed by VERN BRAVO II, MD, PHD at 13-Jan-2025 11:46:49 PM [facility] Normal Not Available Comment on above: Order Comment: US OB TRANSVAGINAL No LMP recorded. STREP A MOLECULARon 02-08-20 23 STREP A MOLECULAR Negative Normal Negative [facility] Comment on above: Performed By: #### 3 [id number] #### [address] Strep AOrdered By: Khloe Kaminski on 02-06-2023 Streptococcus.beta-hemo lytic Org specific cx Ql (Unsp spec) Negative Negative [facility] Streptococcus.beta-hemolytic Org specific cx Ql (Unsp spec)Ordered By: Khloe Kaminski on 02-06-2023 Interpretation and review of laboratory results Normal [facility] GCon 06-17-2022 CHLAMYDIA AMPLIFIED PROBE Negative Normal Negative [facility] Comment on above: Performed By: #### [id number] #### [address] [address] GC AMPLIFIED PROBE Negative Normal Negative [facility] Comment on above: Performed By: #### [id number] #### [place] [address] GCon 06-16-2022 CHLAMYDIA SOURCE ThinPrep Normal [facility] Comment on above: Performed By: #### [id number] #### [place] [address] GC SOURCE ThinPrep Normal [facility] Comment on above: Performed By: #### [id number] #### [place] [address] US Breast - left limitedon 0 10-15-2021 Normal examination. RECOMMENDATION: Clinical Follow-Up BI-RADS: ACR BI-RADS 1: Negative [facility] Dimas Patel MD - 10/15/2021 CLINICAL HISTORY: Patient is [...] Clinical Follow-Up BI-RADS: ACR BI-RADS 1: Negative [facility] Radiology Study observation (narrative) [facility] US Breast - left limitedOrde red By: Dimas Patel on 10-15-2021 [facility] Work Phone: CBC without differentialOrde red By: Lexi Lewis on 03-23-2021 Erythrocyte distribution width (RBC) [Ratio] 13.9 % 11.5 - 14.5 % [facility] Hematocrit (Bld) [Volume fraction] 28.6 % Low 33.6 - 46.8 % [facility] Hemoglobin (Bld) [Mass/Vol] 9.1 g/dL Low 11.7 - 15.8 g/dL [facility] Interpretation and review of laboratory results Abnormal [facility] MCH (RBC) [Entitic mass] 28.4 pg 27.5 - 32.3 pg [facility] MCHC (RBC) [Mass/Vol] 31.8 g/dL 30.7 - 35.5 g/dl [facility] MCV (RBC) [Entitic vol] 89.4 fL 80.2 - 99.0 fL [facility] Platelets (Bld) [#/Vol] 196.0 10*3/uL [facility] RBC (Bld) [#/Vol] 3.20 10*6/uL Low [facility] WBC LM Ql (Sput) 11.3 High [facility] BUPRENORPHINE SCRN, UR, REFL EX QUANTOrdered By: Lexi Lewis on 03-22-2021 Buprenorphine Screen, UR Not detected CUTOFF <10 ng/mL [facility] Tox Message see below [facility] Comment on above: Notes: 1. SCREENING RESULTS SHOULD BE CONSIDERED PRESUMPTIVE UNLESS THE PRESENCE OF THE ANALYTE HAS BEEN CONFIRMED BY A REFERENCE LAB. 2. ALL DRUG GROUPS ARE ANALYZED ON URINE. [facility] CBCOrdered By: Lexi ambriz on 03-22-2021 Erythrocyte distribution width (RBC) [Ratio] 13.4 % 11.5 - 14.5 % [facility] Hematocrit (Bld) [Volume fraction] 35.4 % 33.6 - 46.8 % [facility] Hemoglobin (Bld) [Mass/Vol] 11.9 g/dL 11.7 - 15.8 g/dL [facility] Interpretation and review of laboratory results Abnormal [facility] MCH (RBC) [Entitic mass] 28.3 pg 27.5 - 32.3 pg [facility] MCHC (RBC) [Mass/Vol] 33.6 g/dL 30.7 - 35.5 g/dl [facility] MCV (RBC) [Entitic vol] 84.1 fL 80.2 - 99.0 fL [facility] Platelets (Bld) [#/Vol] 246.0 10*3/uL [facility] RBC (Bld) [#/Vol] 4.21 10*6/uL [facility] WBC LM Ql (Sput) 11.9 High [facility] Syphilis Treponema AntibodyO rdered By: Lexi Lewis on 03-22-2021 Syphilis Treponema Antibody Non-Reactive Nonreactive [facility] Toxicology screen, urineOrde red By: Lexi Lewis on 03-22-2021 Amphetamines Screen method >1000 ng/mL Ql (U) Not detected CUTOFF <1000 ng/mL [facility] Barbiturates Screen method >200 ng/mL Ql (U) Not detected CUTOFF <200 ng/mL [facility] Benzodiazepines Ql (U) Not detected CUTOF F <200 ng/mL [facility] Benzoylecgonine Screen (U) [Mass/Vol] Not detected CUTOFF <300 ng/mL [facility] Cannabinoids Screen method >50 ng/mL Ql (U) Not detected CUTOFF <50 ng/mL [facility] Fentanyl Not detected CUTOFF 1.0 ng/mL [facility] Opiates Screen (U) [Mass/Vol] Not detected CUTOFF <300 ng/mL [facility] Phencyclidine (U) [Mass/Vol] Not detected CUTOFF <25 ng/mL [facility] Tox Message see below [facility] Comment on above: Notes: 1. SCREENING RESULTS SHOULD BE CONSIDERED PRESUMPTIVE UNLESS THE PRESENCE OF THE ANALYTE HAS BEEN CONFIRMED BY A REFERENCE LAB. 2. ALL DRUG GROUPS ARE ANALYZED ON URINE. [facility] Type and ScreenOrdered By: Cristina Lewis on 03-22-2021 ABO and Rh group Nom (Bld) Blood group O Rh(D) positive [facility] Blood group antibody screen.cells I+II+III Ql Negative [facility] Fern test, vaginal fluidOrde red By: Stacy Alonso on 03-02-2021 Fern Test NONE SEEN NONE SEEN [facility] CBCon 01-05-2021 Erythrocyte distribution width (RBC) [Ratio] 13.4 % 11.5 - 14.5 % [facility] Hematocrit (Bld) [Volume fraction] 34.0 % 33.6 - 46.8 % [facility] Hemoglobin (Bld) [Mass/Vol] 11.2 g/dL Low 11.7 - 15.8 g/dL [facility] Interpretation and review of laboratory results Abnormal [facility] MCH (RBC) [Entitic mass] 29.2 pg 27.5 - 32.3 pg [facility] MCHC (RBC) [Mass/Vol] 32.9 g/dL 30.7 - 35.5 g/dl [facility] MCV (RBC) [Entitic vol] 88.8 fL 80.2 - 99 fL [facility] Platelets (Bld) [#/Vol] 244.0 10*3/uL [facility] RBC (Bld) [#/Vol] 3.83 10*6/uL [facility] WBC LM Ql (Sput) 10.9 High [facility] Glucose tolerance, 1 houron 01-05-2021 Glucose 1 Hr post 50 g glucose PO [Mass/Vol] 83 mg/dL [facility] Comment on above: REFERENCE-GLUCOSE 1 HR WITH DEXTROSE Values >140 mg/dL constitute a positive screen [facility] Syphilis Treponema Antibody (RPR)on 01-05-2021 Syphilis Treponema Antibody Nonreactive Nonreactive [facility] Comprehensive metabolic pane l aka [employer] 11-26-2020 Albumin [Mass/Vol] 3.7 g/dL 3.5 - 5 g/dL [facility] Alk Phos 78 U/L 24 - 126 U/L [facility] ALT [Catalytic activity/Vol] 12 U/L 4 - 35 U/L [facility] AST [Catalytic activity/Vol] 19 U/L 3 - 47 U/L [facility] Bilirubin [Mass/Vol] 0.6 mg/dL 0.2 - 1.6 mg/dL [facility] Calcium [Mass/Vol] 9.5 mg/dL 8.4 - 10. 4 mg/dL [facility] Chloride [Moles/Vol] 105 mmol/L 96 - 109 mmol/L [facility] CO2 [Moles/Vol] 21 mmol/L Low 22 - 30 mmol/L [facility] Comprehensive metabolic 2000 panel 0.46 mg/dL Low 0.52 - 1.04 mg/dL [facility] Glucose [Mass/Vol] 87 mg/dL 65 - 100 mg/dL [facility] Interpretation and review of laboratory results Abnormal [facility] Potassium [Moles/Vol] 4.2 mmol/L 3.6 - 5.1 mmol/L [facility] Protein [Mass/Vol] 6.8 g/dL 6.3 - 8.2 g/dL [facility] Sodium [Moles/Vol] 133 mmol/L Low 135 - 147 mmol/L [facility] Urea nitrogen [Mass/Vol] 7 mg/dL Low 8 - 20 mg/dL [facility] GLOMERULAR FILTRATION RATEon 11-26-2020 GFR/1.73 sq M.predicted MDRD (S/P/Bld) [Vol rate/Area] mL/min/{1.73_m2} [facility] Comment on above: To estimate the [...] fraction] 4.3 % 0 - 6 % [facility] Comment on above: Reference Interval f or %A1c %A1c (NGSP) Interpretation <6.0% Non-Diabetic Range >6.5% Action Suggested . Hepatitis C antibodyon 11-26 HCV Ab Qn (S) Nonreactive Nonreactive [facility] [employer] LDH SERUMon 11-26-2020 LDH Pyruvate to lactate reaction [Catalytic activity/Vol] 513 U/L 308 - 626 U/L [facility] [employer] Otheron 11-26-2020 [facility] FOLUP Type & Screen (must order with either panel)on 11-26-2020 ABO and Rh group Nom (Bld) O POS [facility] [employer] Blood group antibody screen.cells I+II+III Ql Negative [facility] [employer] Protein / creatinine ratio, urineon 11-26-2020 Protein (U) [Mass/Vol] 10 mg/dL 0 - 12 mg/dL [facility] Protein/Creatinine (U) [Mass ratio] 0.1 [facility] Ur Cre-Random 118.20 mg/dL NO NORMALS [facility] [employer] Uric acidon 11-26-2020 Urate [Mass/Vol] 3.0 mg/dL 2 - 7 mg/dL [facility] Vital Signs Date Time Vital Sign Value Performing Clinician Facility 02-07-2023 04:32-0400 Diastolic blood pressure 65 mm[Hg] [employer] DO Work Phone: [facility] 02-07-2023 04:32-0400 Heart rate 69 /min [employer] DO Work Phone: [facility] 02-07-2023 04:32-0400 Respiratory rate 18 /min IssueNationmsta DO Work Phone: [facility] 02-07-2023 04:32-0400 SaO2% (BldA) [Mass fraction] 99 % [employer] DO Work Phone: [facility] 02-07-2023 04:32-0400 Systolic blood pressure 114 mm[Hg] [employer] Bomsta DO Work Phone: [facility] 02-06-2023 23:14-0400 Body height 167.6 cm Conchita Bomsta DO Work Phone: [facility] 02-06-2023 23:14-0400 Body mass index (BMI) [Ratio] 34.7 kg/m2 Conchita Bota DO Work Phone: [facility] 02-06-2023 23:14-0400 Body temperature 98.91 [degF] Conchita Brownta DO Work Phone: [facility] 02-06-2023 23:14-0400 Body weight 97.52 kg Conchita Brownta DO Work Phone: [facility] 03-24-2021 08:00-0400 Body temperature 98.29 [degF] Lexi Lewis MD Work Phone: [facility] 03-24-2021 08:00-0400 Diastolic blood pressure 55 mm[Hg] Lexi Lewis MD Work Phone: 6(005)[phone] [address] 03-24-2021 08:00-0400 Heart rate 76 /min Lexi Lewis MD Work Phone: 2(315)271-742161 [address] 03-24-2021 08:00-0400 Respiratory rate 16 /min Lexi Lewis MD Work Phone: [facility] 03-24-2021 08:00-0400 Systolic blood pressure 115 mm[Hg] Lexi Lewis MD Work Phone: 3(166)[phone] [address] 03-24-2021 04:00-0400 SaO2% (BldA) [Mass fraction] 97 % Lexi Lewis MD Work Phone: 4(468)[phone] [address] 03-21-2021 20:37-0400 Body height 167.6 cm Lexi Lewis MD Work Phone: [facility] 03-21-2021 20:37-0400 Body mass index (BMI) [Ratio] 39.71 kg/m2 Lexi Lewis MD Work Phone: 0(985)[phone] [address] 03-21-2021 20:37-0400 Body weight 111.58 kg Lexi Lewis MD Work Phone: [facility] 03-06-2021 21:50-0400 Diastolic blood pressure 57 mm[Hg] Stacy Alonso MD Work Phone: [facility] 03-06-2021 21:50-0400 Heart rate 77 /min Stacy Alonso MD Work Phone: [facility] 03-06-2021 21:50-0400 Systolic blood pressure 120 mm[Hg] Stacy Alonso MD Work Phone: [facility] 03-06-2021 20:50-0400 Body height 167.6 cm Stacy Alonso MD Work Phone: [facility] 03-06-2021 20:50-0400 Body mass index (BMI) [Ratio] 38.58 kg/m2 Stacy Alonso MD Work Phone: 8(370)[phone] [address] 03-06-2021 20:50-0400 Body weight 108.41 kg Stacy Alonso MD Work Phone: [facility] 03-06-2021 20:50-0400 Respiratory rate 20 /min Stacy Alonso MD Work Phone: [facility] 03-06-2021 20:48-0400 Body temperature 98.01 [degF] Stacy Alonso MD Work Phone: 4(509)[phone] [address] 03-02-2021 02:04-0400 Diastolic blood pressure 69 mm[Hg] Stacy Alonso MD Work Phone: [facility] 03-02-2021 02:04-0400 Heart rate 88 /min Stacy Alonso MD Work Phone: [facility] 03-02-2021 02:04-0400 Systolic blood pressure 131 mm[Hg] Stacy Alonso MD Work Phone: [facility] 03-02-2021 01:37-0400 Body height 167.6 cm Stacy Alonso MD Work Phone: [facility] 03-02-2021 01:37-0400 Body mass index (BMI) [Ratio] 38.41 kg/m2 Stacy Alonso MD Work Phone: [facility] 03-02-2021 01:37-0400 Body temperature 98.91 [degF] Stacy Alonso MD Work Phone: [facility] 03-02-2021 01:37-0400 Body weight 107.96 kg Stacy Alonso MD Work Phone: [facility] 03-02-2021 01:37-0400 Respiratory rate 20 /min Stacy Alonso MD Work Phone: [facility] 02-03-2021 21:58-0400 Diastolic blood pressure 77 mm[Hg] Stacy Alonso MD Work Phone: 1(366)[phone] [address] 02-03-2021 21:58-0400 Heart rate 91 /min Stacy Alonso MD Work Phone: [facility] 02-03-2021 21:58-0400 Respiratory rate 18 /min Stacy Alonso MD Work Phone: [facility] 02-03-2021 21:58-0400 Systolic blood pressure 128 mm[Hg] Stacy Alonso MD Work Phone: [facility] 08-14-2020 09:19-0500 Body Temperature 98.49 [degF] [facility] 08-14-2020 06:50-0500 BMI (Body Mass Index) 32.28 kg/m2 [facility] 08-14-2020 06:50-0500 Body weight 90.72 kg [facility] 08-14-2020 06:50-0500 BP Diastolic 74 mm[Hg] [facility] 08-14-2020 06:50-0500 BP Systolic 135 mm[Hg] [facility] 08-14-2020 06:50-0500 Height 167.6 cm [facility] 08-14-2020 06:50-0500 Pulse (Heart Rate) 82 /min [facility] 08-14-2020 06:50-0500 Pulse Oximetry 99 % [facility] 08-14-2020 06:50-0500 Respiratory Rate 18 /min Aliya Damon [facility] Encounters Encounter Date Encounter Type Care Provider Facility Start: 01-24-2025 End: 01-24-2025 [facility] Result Encounter Robi Marcelo DO Work Phone: [facility] Unsolicited Start: 01-24-2025 End: 01-24-2025 [facility] Result Encounter Robi Marcelo DO Work Phone: [facility] Unsolicited Start: 01-23-2025 End: 01-23-2025 [facility] Result Encounter Robi Marcelo DO Work Phone: [facility] Unsolicited Start: 01-23-2025 End: 01-23-2025 [facility] Result Encounter Robi Marcelo DO Work Phone: [facility] Unsolicited Start: 01-16-2025 End: 01-16-2025 ambulatory Not Available Start: 01-15-2025 End: 01-15-2025 ambulatory Zoila Manzo Facility:[facility] Start: 01-15-2025 End: 01-15-2025 Departed Referred [facility] Path [facility] Start: 01-10-2025 End: 01-10-2025 ambulatory Not Available Start: 12-27-2024 Registered Recurring Fi [facility] Credible Start: 12-27-2024 ambulatory Octavio Epperson acility:[facility] Start: 02-07-2023 End: 02-07-2023 Emergency department patient visit NONE PCP [facility] Start: 02-07-2023 End: 02-07-2023 Emergency department patient visit Conchita Carrion DO Work Phone: [facility] Comment on above: Sore throat (Primary Dx) Start: 06-20-2022 ambulatory BRENDAN PEREZ [facility] Start: 06-14-2022 End: 06-14-2022 ambulatory BELLE OCHOA [facility] Start: 06-14-2022 Encounter for gynecological examination (general) (routine) without abnormal findings [facility] Start: 06-14-2022 End: 06-15-2022 ambulatory [facility] Start: 02-06-2022 End: 02-06-2022 Subsequent hospital visit by physician Paulo Upton DO Work Phone: [facility] Start: 02-04-2022 End: 02-04-2022 Subsequent hospital visit by physician Kym Gutierrez APRN MAINTENANCE SUPERVISOR Work Phone: [facility] Comment on above: URI with cough and c ongestion Start: 10-15-2021 End: 10-15-2021 Subsequent hospital visit by physician Marianna Abbasi APRN MAINTENANCE SUPERVISOR Work Phone: [facility] Comment on above: Breast pain, left Start: 06-08-2021 End: 06-08-2021 Subsequent hospital visit by physician Job Fitzgerald MD Work Phone: [facility] Start: 03-21-2021 End: 03-24-2021 Evaluation and management of inpatient Lexi Lewis MD Work Phone: [facility] ([facility] Comment on above: Encounter for induct ion of labor (Primary Dx) Start: 03-06-2021 End: 03-06-2021 Subsequent hospital visit by physician Stacy Alonso MD Work Phone: [facility] ([facility]) Start: 03-02-2021 End: 03-02-2021 Subsequent hospital visit by physician Stacy Alonso MD Work Phone: [facility] ([facility]) Start: 02-24-2021 End: 02-24-2021 Subsequent hospital visit by physician Nicole Rodarte DO Work Phone: [facility] Comment on above: 36 weeks gestation o f ; Chlamydia trachomatis infection in mother during second trimester of Start: 02-03-2021 End: 02-03-2021 Subsequent hospital visit by physician Stacy Alonso MD Work Phone: [facility] ([facility]) Start: 01-05-2021 End: 01-05-2021 Subsequent hospital visit by physician Nicole Rodarte Work Phone: [facility] Comment on above: 27 weeks gestation o f Start: 12-21-2020 End: 12-21-2020 Subsequent hospital visit by physician Nicole Rodarte Work Phone: [facility] Comment on above: 27 weeks gestation o f ; Chlamydia trachomatis infection in mother during second trimester of Start: 11-26-2020 End: 11-26-2020 Subsequent hospital visit by physician Nicole Rodarte Work Phone: [facility] Comment on above: Late care a ffecting in second trimester Start: 11-26-2020 End: 11-26-2020 Subsequent hospital visit by physician Nicole Rodarte Work Phone: [facility] Comment on above: Late care a ffecting in second trimester; History of low potassium; Elevated blood pressure reading Start: 08-14-2020 End: 08-14-2020 Emergency department patient visit Aliya Cao Work Phone: [facility] Comment on above: Pain, dental (Primar y Dx); Jaw swelling Procedures Date Procedure Procedure Detail Performing Clinician Start: 01-24-2025 ALL CBC WITH AUTO DIFF Robi Marcelo DO Work Phone: Start: 01-23-2025 Antibody screen Robi F azio DO Work Phone: Start: 01-23-2025 ALL TYPE AND SCREEN Cor ey Marcelo DO Work Phone: Start: 02-06-2023 Iadna streptococcus group a amplified probe tq Conchita Carrion DO Work Phone: Start: 06-14-2022 Microscopic observat ion [Identifier] in Cervix by Cyto stain Conchita Carrion DO Work Phone: Start: 10-15-2021 breast uni real t duane with image limited Marianna Abbasi FOOD SERVICE CASHIER MAINTENANCE SUPERVISOR Work Phone: Start: 03-23-2021 Blood count complete automated Lexi Lewis MD Work Phone: Start: 03-22-2021 BUPRENORPHINE SCRN, UR, REFLEX QUANT Lexi Lewis MD Work Phone: Start: 03-22-2021 Drug tst prsmv instr mnt chem analyzers pr date Lexi Lewis MD Work Phone: Start: 03-22-2021 Antibody treponema pallidum Lexi Lewis MD Work Phone: Start: 03-22-2021 Blood count complete automated Lexi Lweis MD Work Phone: Start: 03-22-2021 TYPE AND SCREEN Nunu Lewis MD Work Phone: Start: 03-02-2021 Smr prim src wet anthony nt nfct agt Stacy Alonso MD Work Phone: Start: 01-05-2021 Antibody treponema pallidum Nicole Rodarte Work Phone: Start: 01-05-2021 Glucose post glucose dose Nicole Rodarte Work Phone: Start: 01-05-2021 Blood count complete automated Nicole Rodarte Work Phone: Start: 11-26-2020 Assay of blood/uric acid Nicolejose Rodarte Work Phone: Start: 11-26-2020 Comprehensive metabo lic panel Nicole Cayden Work Phone: Start: 11-26-2020 GLOMERULAR FILTRATION RATE Nicolejose Rodarte Work Phone: Start: 11-26-2020 Hemoglobin A1c/Hemoglobin.total [...] DTAP/TDAP/TD VACCINE (2 - Td or Tdap) [facility] Start: 03-04-2031 Diphtheria + pertuss is + tetanus vaccine (product) DTAP/TDAP/TD VACCINE (2 - Td or Tdap) [facility] Start: 06-14-2025 Screening for malign ant neoplasm of cervix PAP SMEAR [facility] Start: 01-30-2025 End: 01-30-2025 Patient encounter procedure 01/30/2025 10:50 AM EDT Office Visit [facility] [address] [address] Robi Robertson DO [address] [place] [address] [facility] Start: 01-15-2025 Urine culture [facility] Start: 01-15-2025 Bacteria identified in Urine by Culture Urine Culture [facility] Start: 06-20-2023 End: 06-20-2023 Patient encounter procedure 06/20/2023 Office Visit Obstetrics and Gynecology Belle Ochoa APRN MAINTENANCE SUPERVISOR [address] [place], [place] [id number] [facility] Start: 06-15-2023 ANNUAL WELLNESS VISIT ANNUAL WELLNES S VISIT [facility] Start: 06-14-2023 CHLAMYDIA SCREENING CHLAMYDIA SCREEN ING [facility] Start: 06-02-2023 Influenza vaccinatio n given INFLUENZA VACCINE (Season Ended) [facility] Start: 06-02-2022 Influenza vaccinatio n given INFLUENZA VACCINE (Season Ended) [facility] Start: 05-25-2022 End: 05-25-2022 Patient encounter procedure 05/25/2022 Office Visit Obstetrics and Gynecology Don BelleANTONETTE wallace MAINTENANCE SUPERVISOR [address] [place] [address] [facility] Start: 02-24-2022 CHLAMYDIA SCREENING CHLAMYDIA SCREEN [facility] Start: 12-21-2021 CHLAMYDIA SCREENING CHLAMYDIA SCREEN [facility] Start: 11-26-2021 CHLAMYDIA SCREENING CHLAMYDIA SCREEN [facility] Start: 10-18-2021 End: 10-18-2021 Patient encounter procedure 10/18/2021 Office Visit Dentistry Alka Adams DDS [address] [place] [address] [facility] Start: 2021 Screening for malign ant neoplasm of cervix PAP SMEAR [facility] Start: 07-22-2021 End: 07-22-2021 Patient encounter procedure 07/22/2021 Office Visit Dentistry Alka Adams DDS [address] [place] [address] [facility] Start: 06-02-2021 Influenza vaccinatio n given [facility] Start: 05-12-2021 End: 05-12-2021 ambulatory 05/12/2021 Visit Obstetrics and Gynecology Nicole Rodarte DO [address] [facility] [address] [place] [address] [phone] Start: 03-10-2021 End: 03-10-2021 Patient encounter procedure 03/10/2021 Routine Obstetrics and Gynecology Nicole Rodarte DO [address] [place] [address] [phone] [facility] Start: 03-04-2021 End: 03-04-2021 Patient encounter procedure 03/04/2021 Routine Obstetrics and Gynecology Nicole Rodarte DO [address] [place] [address] [facility] Start: 02-24-2021 End: 02-24-2021 Patient encounter procedure 02/24/2021 Routine Obstetrics and Gynecology Nicole Rodarte DO [address] [place] [address] [facility] Start: 02-11-2021 End: 02-11-2021 Patient encounter procedure 02/11/2021 Routine Obstetrics and Gynecology Nicole Rodarte DO [address] [place] [address] [facility] Start: 01-11-2021 End: 01-11-2021 Routine 01/11/2021 Routine Obstetrics and Gynecology Nicole Rodarte DO [address] [place] [address] [facility] Start: 12-24-2020 End: 12-24-2020 Routine 12/24/2020 Routine Obstetrics and Gynecology Nicole Rodarte DO [address] [facility] [address] [place] [address] [facility] Start: 06-02-2020 Influenza vaccinatio n given INFLUENZA VACCINE (#1) [facility] Start: 2018 ANNUAL WELLNESS VISIT ANNUAL WELLNES S VISIT [facility] Start: 2016 CHLAMYDIA SCREENING CHLAMYDIA SCREEN ING [facility] Start: 2012 Adult depression screening assessment DEPRESSION SCREENING [facility] Start: 2012 Depression screening using PHQ-9 (Patient Health Questionnaire 9) score DEPRESSION SCREENING [facility] Start: 2011 Diphtheria + pertuss is + tetanus vaccine (product) DTAP/TDAP/TD VACCINE (1 - Tdap) [facility] Start: 2011 Human papilloma viru s vaccination given HPV VACCINES (GARDASIL) (1 - 2-dose series) [facility] Start: 2011 Vaccination for gabe n papillomavirus HPV VACCINES (GARDASIL) (1 - 2-dose series) [facility] Start: 2005 COVID-19 VACCINE (1) COVID-19 VACCIN E (1) [facility] Start: 02-24-2001 COVID-19 VACCINE (#1) COVID-19 VACCI NE (#1) [facility] End: 11-26-2020 Chlamydia trachomatis+Neisseria gonorrhoeae rRNA [Presence] in Cervix by Probe GC &Chlamydia Microbiology Routine Late care affecting in second trimester 1 Occurrences starting 11/26/2020 until 11/26/2020 [facility] Comment on above: 1 Occurrences starti ng 11/26/2020 until 11/26/2020 Chlamydia trachomatis+Neisseria gonorrhoeae rRNA [Presence] in Cervix by Probe [facility] End: 12-21-2020 Chlamydia trachomatis+Neisseria gonorrhoeae rRNA [Presence] in Cervix by Probe GC & CHLAMYDIA AMPLIFIED PROBE Microbiology Routine 27 weeks gestation of Chlamydia trachomatis infection in mother during second trimester of 1 Occurrences starting 12/21/2020 until 12/21/2020 [facility] Comment on above: 1 Occurrences starti ng 12/21/2020 until 12/21/2020 End: 02-24-2021 Chlamydia trachomatis+Neisseria gonorrhoeae rRNA [Presence] in Cervix by Probe GC & Chlamydia Amplified Probe Microbiology Routine 36 weeks gestation of Chlamydia trachomatis infection in mother during second trimester of 1 Occurrences starting 02/24/2021 until 02/24/2021 [facility] Comment on above: 1 Occurrences starti ng 02/24/2021 until 02/24/2021 End: 06-08-2021 COVID-19 (2019 NOVEL CORONAVIRUS) [facility] Work Phone: Comment on above: One Time for 1 Occur rences starting 06/08/2021 until 06/08/2021 End: 11-26-2020 Drug Screen Urine Extended Panel Drug Screen Urine Extended Panel Lab Routine Late care affecting in second trimester 1 Occurrences starting 11/26/2020 until 11/26/2020 [facility] Comment on above: 1 Occurrences starti ng 11/26/2020 until 11/26/2020 Drug Screen Urine Extended Panel Drug Screen Urine Extended Panel Lab Routine Late care affecting in second trimester 11/26/2020 3:23 PM EST niid.to [facility] nonstress test nonst ress test OB Routine Daily 0500 until discontinued starting 03/07/2021 [facility] Comment on above: Daily 0500 until dis continued starting 03/07/2021 End: 02-24-2021 Genital Group B Strep Screen Genital Group B Strep Screen Microbiology Routine 36 weeks gestation of 1 Occurrences starting 02/24/2021 until 02/24/2021 [facility] Comment on above: 1 Occurrences starti ng 02/24/2021 until 02/24/[address] p Screen Genital Group B Strep Screen Microbiology Routine 36 weeks gestation of 02/24/2021 10:07 PM EDT [facility] End: 03-06-2021 POCT Nitrazine Test POCT Nitrazine Test OB Routine One Time for 1 Occurrences starting 03/06/2021 until 03/06/2021 [facility] Comment on above: One Time for 1 Occur rences starting 03/06/2021 until 03/06/2021 PANEL WITH HIV Panel with HIV Lab Routine Late care affecting in second trimester 11/26/2020 3:26 PM EST Lorraine Unfold [facility] End: 02-04-2022 SARS-COV-2, [facility] Work Phone: Comment on above: One Time for 1 Occur rences starting 02/04/2022 until 02/04/2022 End: 02-06-2022 SARS-COV-2, [facility] Work Phone: Comment on above: One Time for 1 Occur rences starting 02/06/2022 until 02/06/2022 End: 11-26-2020 Urine culture and sensitivity Urine culture and sensitivity Microbiology Routine Late care affecting in second trimester 1 Occurrences starting 11/26/2020 until 11/26/2020 [facility] Comment on above: 1 Occurrences starti ng 11/26/2020 until 11/26/2020 Urine culture and sensitivity Urine culture and sensitivity Microbiology Routine Late care affecting in second trimester 11/26/2020 3:23 PM EST [facility] Immunizations Immunization Date Immunization Notes Care Provider Fa brucety 03-04-2021 tetanus toxoid, reduced diphtheria toxoid, and acellular pertussis vaccine, adsorbed Stacy Alonso MD Work Phone: [facility] 08-26-2008 influenza virus vaccine, unspecified formulation Lexi Lewis MD Work Phone: [facility] NEGATED: Highlighted row has not occurred!03-22-2021 measles, mumps and rubella virus vaccine Lexi Lewis MD Work Phone: [facility] Comment on above: Deferred: - immune Payers Date Payer Category Payer Self-pay 2024 Medicaid (Managed Care) [employer] [id number] 2024 Unknown [id number] 2020 Medicaid [id number] 2020 Medicaid [facility] [id number] 2020-Present [phone] [place] [address] Medicaid [id number] 2000 Unknown [id number] 2000 Unknown [id number] 2000 Unknown [id number] 2000 Unknown [id number] 2000 Unknown [id number] 2000 Unknown [id number] Social History Date Type Detail Facility Start: 08-14-2020 End: 02-04-2022 Tobacco smoking status VAIS Former smoker [facility] Start: 08-14-2020 End: 06-14-2022 Tobacco use and exposure Never used [facility] Start: 2000 Sex Assigned At Not on file [facility] Start: 01-27-2023 End: 02-07-2023 Exposure to SARS-CoV-2 (event) Not sure [facility] End: 11-02-2020 History of tobacco use Current smoker [facility] Start: 11-26-2020 End: 02-04-2022 Alcohol intake Ex-drinker (finding) [facility] Start: 06-29-2020 [facility] Exposure to SARS-CoV-2 (event) Unable to assess [facility] Start: 2000 Sex Assigned At Female [facility] Work Phone: Start: 09-21-2021 End: 06-14-2022 Tobacco smoking status VAIS Current every day smoker [facility] Work Phone: History of tobacco use Tobacco Use Types Packs/Day Years Used Date Smoking Tobacco: Every Day E-Cig/Vaping Smokeless Tobacco: Never [facility] Start: 02-07-2023 Alcohol intake Current drinke r of alcohol (finding) [facility] Start: 06-14-2022 Alcohol Comment occ [facility] Tobacco smoking status [facility] Tobacco smoking consumption unknown [facility] Gender identity Not on file [facility] Start: 01-17-2025 Sex Patient sex un known (finding) [facility] Clinical Notes 02-03-2021 to 02-07-2023 Ava [...] arm, pt ambulates to lobby with ease. [facility] 02-07-2023 Emergency department Note Discharge instructions [...] distress during triage. documented in this encounter [facility] 02-07-2023 Emergency department Note Pt ambulates [...] unlabored, airway patent, skin pwd, NAD noted. [facility] 02-06-2023 Emergency department Triage note Pt arrives to the ED for throat tightness. Onset over last 1 1/2 hour. Denies any throat pain, just tightness. Denies any known for cause. Pt A & O. Resp reg. Speech is clear. No distress during triage. [facility] 10-15-2021 Note CLINICAL HISTORY: Patient [...] account for the patient's pain. Normal examination. [facility] 03-24-2021 Miscellaneous Notes Dischg'd to home [...] clicking is heard. Explains reasons to help infant into deeper latches and explain how to assess infant's breathing while feeding. Breast feeding book and log given and explained to mother. Hunger cues, proper latch, skin to skin positioning, frequency of feeds, and normal output discussed with mother. Mother is encouraged to page for further assistance as needed. 03/22/21 0737 Consult Initial assessment Previous n/a Gestational Age (wk) 40 wk Time Spent (min) 15-30 min Assessment Breast size average;soft Left nipple appearance intact;erect Nipple size average Left feeding position cross-cradle;football hold Effort to latch gentle stimulation needed for to latch Breastfeed results good Breast Surgery no Breast feeding Assistance Device Lanolin Social Service OB Consult [place] 2000 OB Social Work Consult Reason for Referral: CHANDA has hx of anx Interview Participants: [facility] Support System Father of Baby: Yes Family Support: Yes Marital Status: Single Patient Information Employment: yes Student: no Household Size: 3 Other Children in home: 0 Animal Anatomy Teacher / Family Physician: Dr Porras Problem List: Psychiatric History Community Agencies Involved: Wic Assessment:: CHANDA has hx of anx. Reports that she gets nervous but is okay. MOB reports she has hx of dep but hasn't had it [id number]. PPD handout provided with verbal edu on sxs of PPD. CHANDA has late care per chart review. MOB reports she did not find out she was till late. Started going as soon as she found out she was . CHANDA tox screens on 03/21/2021 and 11/26/2020 were neg on all panels. Has WiC, ins, car seat and crib. Has [employer] plan ins. Taking baby to Dr Porras. Breast feeding baby. Dad is Maria Antonia Zieglerautumn and baby will be named Lida Clark. No concerns identified. Referrals Planned/Recommended @ DC: (none) Social Christian Guzman Images from the original note were not included. Rosina Vergara Climatology Professor [facility] Facility Examiner D/C Planning Signed Note Time: 03/22/21 150 Creation Time: 03/22/21 150 Signed []Hide copied [...] needs. Vaginal Delivery Note Eva Granados 2000 [id number] 20 y.o. at 40w0d gestation Delivering Workplace Relations Adviser: Lexi Lewis Primary Workplace Relations Adviser: Lexi Lewis Pre-Delivery Diagnosis: IUP at 40 [...] Lewis with pt update. Discussed pt SVE 2/-3 and pt contraction pattern and FHR tracing. [...] to room 2104. EFM monitors applied. SVE 270/-3. documented in this encounter [facility] 03-24-2021 Hospital course Narrative Obstetrical Discharge Summary Eva Granados 2000 [id number] 03/21/2021 Delivering OB Clinician: Lexi Lewis MD [...] Nicole Rodarte 03/24/2021 documented in this encounter [facility] 03-24-2021 History of Presen t illness [...] 2. Routine care documented in this encounter [facility] 03-22-2021 History and physical note This [...] for : 37w US: vertex, EFW 3028g (3wr89wd) 42%ile, SUGAR 15.0cm, post gr3 placenta Late [...] +accelerations, intermittent early, late, and variable decelerations Rhodhiss: q 1-3 minutes VE: Complete/+2 station with artificial rupture performed for clear fluid Eva Granados 2000 [id number] 20 y.o. at 40w1d with EDC of Estimated Date of Delivery: 03/22/21 who is being admitted for induction of labor. Her current obstetrical history is remarkable for: 37w US: vertex, EFW 3028g (3br77gf) 42%ile, SUGAR 15.0cm, post gr3 placenta Late [...] cephalic FHTs: To be assessed on arrival Rhodhiss: To be assessed on arrival Cervix: Last in office Dilation: 1cm Effacement: 50% Station: -3 Damon score: 3 Labs GBS neg Rh pos Impression: 20 y.o. at 40w1d Induction of labor Late PNC at 23w Chlamydia at [facility] but 36w recheck neg GBS neg Rh pos Plan: 1. CASSIE Rodarte 2. CEFM + Rhodhiss 3. Admission labs 4. Suspect some component of mild blood pressure elevations related to anxiety as happened at [facility] and when seeing a different provider last week. Will update preeclampsia labs on admission as a precautions. 5. Cervical ripening with cytotec, plan to follow with pitocin per protocol once Damon score is more favorable 6. Pain control PRN documented in this encounter [facility] 03-06-2021 Miscellaneous Notes Pt is discharged [...] with monitors applied. documented in this encounter [facility] 03-06-2021 Hospital Discharg e instructions Nadege Bruce RN - 03/06/2021 Signs and Symptoms of [...] not have a private physician call the [facility] NurseLine right away at or . [...] Call according to your Doctor s instructions. [facility] is located at [facility] on the [facility]. Warning Signals Possible Complications in Call if: [...] (use kick count). documented in this encounter [facility] 03-02-2021 Miscellaneous Notes EFM discontinued, pt [...] mucas plug for 3 days and since 2299 feels like it is more waterey, also has been feeling crampy for one week. Pt did not wear a pad in. To bathroom for urine specimen, then to room 2102. Pt changed, then efm explained and applied, pt states understanding. documented in this encounter [facility] 02-03-2021 Miscellaneous Notes Patient provided with [...] applied, education provided. documented in this encounter [facility] 02-03-2021 Hospital Discharg e instructions Jorge Moreira [...] Hydrocortisone. Ask your doctor about taking an pfrt-[id number] stool softener. Consider Experts recommend that women [...] may help to think about your personal, jain, and family traditions. You get to decide if you will keep your son's penis natural or if he will be circumcised. If you decide that you would like to have your baby circumcised, talk with your doctor. You can share your concerns about pain. And you can discuss your preferences for anesthesia. Where can you learn more? Go to https://www.[employer].net/pat ientEd Enter X711 in the search box to learn more about Weeks 32 to 34 of Your : Care Instructions. Current as of: July 09, 2020 Content Version: . [employer]. Care instructions adapted under license by your healthcare professional. If you have questions about a medical condition or this instruction, always ask your healthcare professional. [employer] disclaims any warranty or liability for your use of this information. documented in this encounter [facility] Evaluation note Diagnosis 36 weeks gestation of state, incidental Chlamydia trachomatis infection in mother during second trimester of documented in this encounter [facility]* Diagnosis (spontaneous vaginal delivery)- Primary Normal delivery Encounter for induction of labor Normal labor Chlamydia trachomatis infection in mother during second trimester of Late care affecting in second trimester documented in this encounter [facility]* Diagnosis Breast pain, left Mastodynia documented in this encounter [facility]* Diagnosis URI with cough and congestion documented in this encounter [facility]* Diagnosis Sore throat- Primary Acute pharyngitis documented in this encounter [facility] noteNo assessment information available [facility] Work Phone: Hospital Discharge instructions* Instructions* Tamiko Melo RN - 03/02/2021 Signs and Symptoms of Labor This is a guide for you about the signs of true labor. If you have any of these signs before 36 weeks of (nine months), please call your private physician. If you do not have a private physician call the [facility] right away at or . Contractions [...] Call according to your Doctor s instructions. [facility] is located at [facility] on the [facility]. Warning Signals Possible Complications in Call if: [...] movement (use kick count). [facility]* Instructions* Maile Moses [...] eating high-fiber foods. Ask your doctor about euvn-lmh-kwwczih stool softeners. Cleanse yourself with a gentle [...] a few days after delivery. Plan for attendant children's institution if you have other children. Stay flexible [...] Where can you learn more? Go to https://www.[employer].net/patientEd Enter A461 in the search box to learn more about After Your Delivery (the Period): CareInstructions. Current as of: July 09, 2020 Content Version: 12.9 [employer]. Care instructions adapted under license by your healthcare professional. If you have questions about a medical condition or this instruction, always ask your healthcare professional. [employer] disclaims any warranty or liability for your use of this information. * Attachments The following attachments cannot be sent through Care Everywhere. * (Fijian Namibian) [facility]* Attachments The following attachments cannot be sent through Care Everywhere. * Sore Throat (Fijian Namibian) [facility] SystemReason for referral (narrative)* Procedure Authorization (Routine) - Closed Specialty Diagnoses / Procedures Referred By Contabdullahi t Referred To Contact Diagnoses Breast pain, left Procedures US Breast Left Limited Marianna Abbasi, ANTONETTE MAINTENANCE SUPERVISOR [address] [place] [address] [facility] [employer] [address] [phone] Referral ID Status Reason Start Date Expiration Date Visits Re quested Visits Authorized [id number] Closed 09/21/2021 10/22/2022 1 1 [facility] for visit Narrative* Procedure Authorization (Routine) - Closed Specialty Diagnoses / Procedures Referred By Contac t Referred To Contact Diagnoses Breast pain, left Procedures US Breast Left Limited Marianna Abbasi, ANTONETTE MAINTENANCE SUPERVISOR [address] [place] [address] [employer] [place] [phone] Referral ID Status Reason Start Date Expiration Date Visits Re quested Visits Authorized [id number] Closed 09/21/2021 10/22/2022 1 1 [email or web address] Reason for Referral Status Reason Specialty Diagnoses / Procedures Referred By Contact Referred To Contact [facility] / Dentistry Diagnoses Pain, dental Jaw swelling Aliya Cao DO [address] [place] [address] [facility] [address] [place] [address] Status Reason Specialty Diagnoses / Procedures Referred By Contact Referred To Contact [facility] Diagnoses Pain, dental Jaw swelling Aliya Cao DO [address] [place] [address] [facility] [address] [facility] [place] [address] Discharge Instructions * Instructions* Aliya Cao DO - 08/14/2020 No driving or operating heavy machinery while taking norco - no extra tylenol * Attachments The following attachments cannot be sent through Care Everywhere. * Tooth and Gum Pain (Fijian Namibian) documented in this encounter Assessments Diagnosis Pain, [...] weeks gestation of state, incidental Advance Directives Documents on File Type Date Recorded Patient Staff Radiologist Expl anation Advance Directives and Living Will Power of Educational Psychology Teacher Documents on File Type Date Recorded Patient Staff Radiologist Expl anation Advance Directives and Living Will Power of Educational Psychology Teacher Latest Code Status on File Code Status [...] Documents on File Type Date Recorded Patient Staff Radiologist Expl anation Advance Directives and Living Will Power of Educational Psychology Teacher DNR Documentation Latest Code Status on File Code Status Date Activated Date Inactivated Comments Full Code 03/22/2021 5:16 AM 03/24/2021 7:51 PM Full Code 03/22/2021 1:13 AM 03/22/2021 5:16 AM Full Code 03/21/2021 9:27 PM 03/22/2021 1:13 AM Full Code 03/19/2021 11:50 AM 03/21/2021 9:27 PM Full Code 03/06/2021 9:45 PM 03/07/2021 4:11 AM Documents on File Type Date Recorded Patient Staff Radiologist Expl anation Advance Directives and Living Will Power of Educational Psychology Teacher DNR Documentation Summary Purpose Family History No Family History Records FoundNo Family History Records FoundNo Family History Records Found Additional Source Comments [...] CYTOTEC Reason Comments Other Throat tightness Aliya Cao DO - 08/14/2020 8:59 AM Juliann Harris RN [...] (Given - Provider: Maile Moses RN) TdaP msbzquu-flphzwprar-hhtq lular pertussis (BOOSTRIX) injection 0.5 mL 0.5 mL, Intramuscular, PRIOR TO DISCHARGE, 1 dose, On Mon03/22/21 at 0600, ONLY give if patient has not received during this . 0900 (Due - Provider: Leah Graves, DAVID) Continuous Medication Order 03/22/2021 03/23/2021 03/24/2021 lactated [...] 24 hours. 0228 (Given - Provider: Janet Lewis, DAVID) aluminum-magnesium hydroxide 200-200 MG/5ML suspension 30 mL 30 mL, Oral, EVERY 6 HOURS PRN, Cramping, Indigestion, Starting on Mon03/22/21 at 0514, Until Discontinued benzocaine-menthol (DERMOPLAST) 20-0.5 % topical spray Topical, PRN, may leave @@ bedside, Starting on Mon03/22/21 at 0514, Until Discontinued, Apply topically to perineum 0650 (Given - Provider: Leah Belle, DAVID)0710 (Given - Provider: Leah Graves RN) 1044 [...] to perineum 0650 (Given - Provider: Leah Belle, RN)0710 (Given - Provider: Leah Graves, DAVID) ibuprofen (ADVIL,MOTRIN) tablet 800 mg 800 mg, Oral, EVERY 8 HOURS PRN, Mild Pain, Moderate Pain, Fever, Starting on Mon03/22/21 at 0514, Until Discontinued 0710 (Given - Provider: Leah Graves RN)1613 (Given - Provider: Susan Olivares RN) 1243 (Given - Provider: Ella Duarte, DAVID)2358 (Given - Provider: Mehreen Bahena RN) Lanolin Hydrous ointment Topical, PRN, Dry Skin, [...] 0529 (New Bag - Provider: Leah Belle, RN)0905 (Infusion Complete - Provider: Leah Graves, DAVID) simethicone (MYLICON) chewable tablet 80 mg 80 mg, Oral, EVERY 6 HOURS PRN, Cramping, Flatulence, Starting on Mon03/22/21 at 0514, Until Discontinued zolpidem (AMBIEN) tablet 5 mg 5 mg, Oral, NIGHTLY PRN, Sleep, Starting on Mon03/22/21 at 0514, Until Discontinued Care Teams (unrecognized sec tion and content) Team Status: Active Member Role Status Dates NON STAFF Primary Care Provider Active Start: December 27, 2024 Octavio Martinez MD Attending Provider Active Start: December 27, 2024 Team Status: Inactive Member Role Status Dates Zoila Manzo DO Attending Provider Active Sta rt: January 15, 2025 End: January 15, 2025 Production Tester Relationship Specialty Start Date End Date Pcp, None [address] [place] [address] PCP - General 08/14/20 INFORMATION SOURCE (unrecogn ized section and content) DATE CREATED AUTHOR [facility]13/2023 [facility] DATE CREATED AUTHOR AUTHOR'S ORGANIZ ATION 01/18/2025 [facility] EPIC DATE CREATED AUTHOR AUTHOR'S ORGANIZ ATION 01/18/2025 [facility] Goals (unrecognized section and content) Goals may be documented in a n alternate section FOR RECORDS PERTAINING TO PATIENTS WHO ARE [...] BE BASED ON THE PRIMARY CLINICAL RECORDS. [employer] [facility]. provides no warranty or guarantee of the accuracy or completeness of information in this document.
== END 2025-02-12 09:57 | disposition home or self-care (01) ==
PROVIDERS: Emergency Provider Emergency Medicine; PCP Nurse Practitioner Family
DX: K02.9 Dental caries, unspecified (principal); F17.290 Nicotine dependence, other tobacco product, uncomplicated
CPT/HCPCS: 99283

== ENCOUNTER 2025-05-08 14:34 | Outpatient (OUT) | payer OTHER, SELFPAY ==
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
--- OUTSIDE RECORDS SUMMARY | 2024-12-06 09:53 | XMS_ITS ---
Author Organization [facility] in [place] Address [address] [place] [address] Care Team Providers Care Corporate Travel Manager Name Role Phone Tata Turner Primary Care Provider [phone] REASON FOR VISIT Refills Medications Medication SIG (Take, Route, Fr equency, Duration) Notes Start Date End Date Status Effexor XR 75 MG 1 capsule with food Orally Once a day for 30 days 06/20/2024 Active busPIRone HCl 10 MG 1 tablet Orally Twic e a day for 30 days 09/10/2024 Active Encounters Encounter Location Date Provider Diagnosis [address] [address] 12/06/2024 Tata Turner Anxiety and depression F41.9 [...] Eva DUONG SDOB:[birth year] (24 yo F)Acc No.[id number]:12/06/2024 Patient: Eva MARTIN :2000 A ge:24 Y S ex:Female Address:[address], [place], [address] * Refills Refill busPIRone HCl Tablet, 10 MG, Orally, 60 Tablet, 1 tablet, Twice a day, 30 days, Refills=5 Refill Effexor XR Capsule Extended Release 24 Hour, 75 MG, Orally, 30, 1 capsule with food, Once a day, 30 days, Refills=5 * true * Date: Generated for Jolie payne/Kacie/Benitting on: 0 05/08/2025 02:37 PM EDT
[2025-05-08 15:40] LABS: Hematocrit 33.5 % (36.0-48.0); Hemoglobin 11.6 g/dL (12.0-16.0); Immature Granulocytes Abs Auto 0.01 10^3/uL (0.00-0.03); Immature Granulocytes Pct Auto 0.1 % (0.0-0.5); Lymphocytes Absolute Auto 1.4 10^3/uL (1.2-3.8); Mean Corpuscular HGB Conc 34.6 g/dL (29.9-35.2); Mean Corpuscular Hemoglobin 28.7 pg (26.7-34.0); Mean Corpuscular Volume 82.9 fL (81.0-99.0); Platelet Count 215 10^3/uL (150-450); Red Blood Count 4.04 10^6/uL (4.20-5.40); White Blood Count 8.4 10^3/uL (4.0-11.0)
[2025-05-09 07:07] LABS: Rubella Antibodies, IgG 1.37 index (Immune >0.99)
[2025-05-09 12:08] LABS: Rapid Plasma Reagin, Quant Non Reactive titer (NonRea<1:1)
== END 2025-05-08 14:35 | disposition home or self-care (01) ==
LOC: LAB 14:35
PROVIDERS: PCP Nurse Practitioner Family; Visit Provider Obstetrics & Gynecology
DX: Z34.01 Encounter for supervision of normal first pregnancy, first trimester (principal); N92.6 Irregular menstruation, unspecified
CPT/HCPCS: 36415; 80307; 83036; 85025; 86592; 86762; 86803; 86850; 86900; 86901; 87086; 87340; 87389

== ENCOUNTER 2025-05-12 08:37 | Emergency (ER) | payer OTHER, SELFPAY ==
--- OUTSIDE RECORDS SUMMARY | 2024-11-19 04:30 | XMS_ITS ---
Author Organization The [facility] in [place] Address [address] [place] [address] Care Team Providers Care Rn Family Practice Name Role Phone Tata Turner Primary Care [...] 11/19/2024 Encounters Encounter Location Date Provider Diagnosis [facility] Medicine [address] [place] [address] 11/19/2024 Tata Turner Depression F32.9 Assessments Encounter Date Diagnosis (ICD Code) Assessment Notes Treatment Notes Treatment Clinical Notes Section Notes 11/19/2024 Depression (ICD-10 - F32.9) lately more depression than anxiety continue with counseling - starts tomorrow continue with meds, consider fu with psych at [facility] regarding meds discussed healthy lifestyle habits to support good mental health Plan Of Treatment Treatment Notes Assessment Notes Depression lately more depression than anxiety continue with counseling - starts tomorrow continue with meds, consider fu with psych at [facility] regarding meds discussed healthy lifestyle habits to support good mental health Next Appt Details Follow Up: prn, Reason: Progress Notes * Eva DUONG SDOB:[birth year] (24 yo F)Acc No.[id number]:11/19/2024 Progress Note Patient: Eva MARTIN Provider: Sugar Turner ([facility]), TRAVELING AUDITOR :2000 A ge:24 Y S ex:Female Date:11/19/2024 Address:[address] [place] [address], [facility], [id number] Check In:08:34 AM ESTCheck O ut:08:49 AM EST Subjective: * Chief Complaints: * 1 . Wants to discuss meds, she stopped her medications for around 1 month but started taking them again monday. * HPI: G eneral: counseling starting tomorrow thru [facility] living with daughter and grandma working [employer] no SI today restarted meds on Monday [...] * Treatment: * Preventive Medicine: Screenings/Counseling: B [place] ACTION PLAN Above Normal BMI Follow-up D ietary management education, guidance, and counseling T OBACCO ACTION PLAN Patient counselled on the dangers of tobacco use and urged to quit. . * Follow Up: p rn * * Electronically signed by Peace Turner NP, ROAD EQUIPMENT OPERATOR.TRAVELING [id number] on 11/21/2024 at 11:59 AM EST Sign off status: Completed Visit Status: C HK (Check Out) true * Provider: Sugar Turner ([facility]), TRAVELING AUDITOR Date: 0 11/19/2024 Generated for Jolie payne/Kacie/eTransmitting on: 0 05/12/2025 08:45 AM EDT History and Physical Notes * HPI [...]
--- OUTSIDE RECORDS SUMMARY | 2024-12-06 09:53 | XMS_ITS ---
Author Organization The [facility] in [place] Address [address] [place] [address] Care Team Providers Care Cooking Casing And Drying Supervisor Name Role Phone Tata Turner Primary Care [...] Active Encounters Encounter Location Date Provider Diagnosis [address] [address] 12/06/2024 Tata Turner Anxiety and depression F41.9 [...] Eva DUONG SDOB:[birth year] (24 yo F)Acc No.[id number]:12/06/2024 Patient: Eva MARTIN :2000 A ge:24 Y S ex:Female Address:[address], [place], [address] * Refills Refill busPIRone HCl Tablet, 10 MG, Orally, 60 Tablet, 1 tablet, Twice a day, 30 days, Refills=5 Refill Effexor XR Capsule Extended Release 24 Hour, 75 MG, Orally, 30, 1 capsule with food, Once a day, 30 days, Refills=5 * true * Date: Generated for Jolie payne/Kacie/Benitting on: 0 05/12/2025 08:46 AM EDT
--- OUTSIDE RECORDS SUMMARY | 2025-01-21 05:27 | XMS_ITS ---
Author Organization [facility] in [place] Address [address] [place] [address] Care Team Providers Care Hearing Therapy Teacher Name Role Phone Tata Turner Primary Care Provider [phone] REASON FOR VISIT f/u with patient Encounters Encounter Location Date Provider Diagnosis [facility] [address] [place] [address] 01/21/2025 Tata Turner Plan Of Treatment No Information Progress Notes * Eva DUONG SDOB:[birth year] (24 yo F)Acc No.[id number]:01/21/2025 Patient: Eva MARTIN S :2000 A ge:24 Y S ex:Female Address:[address] [place], [address] * true * Date: Generated for Printi ng/Faxing/eTransmitting on: 0 05/12/2025 08:46 AM EDT
--- OUTSIDE RECORDS SUMMARY | 2025-05-08 12:30 | XMS_ITS | Encounter Summary ---
Author Organization [facility] Address [address] [place] [address] Care Team Providers Care Experimental Psychologist Name Role Phone Unavailable Primary Care Provider Unavailabl e Encounter Details Date Type Department Care Team (Latest Contact Info) Description 05/08/2025 12:30 PM EDT Ancillary Procedure YANELI HATHAWAY [address] [facility] [place] [address] Missed menses; Positive urine test ([facility]) Social History Tobacco Use Types Packs/Day Years Used Date Smoking Tobacco: Never Assessed Estimated Date of Delivery Comme nts Yes 11/16/2025 Based on Ultraso und, FHR-[id number] Sex and Gender Information Value Date Recorded Sex Assigned at Not on file Legal Sex Female 9:11 AM EDT Gender Identity Not on file Sexual Orientation Not on file documented as of this encounter Plan of Treatment Upcoming Encounters Date Type Department Care Team (Late st Contact Info) Description 06/09/2025 10:40 AM EDT Routine YANELI HATHAWAY [address] [facility] [address] Robi Robertson DO [address] [place], [place] [id number] documented as of this encounter Procedures Procedure Name Priority Date/Time Associated Diagnosis Comments US OB TRANSVAGINAL Routine 05/08/2025 12 :54 PM EDT Missed menses Positive urine test ([facility]) documented in this encounter Results * US OB transvaginal (05/08/2025 12:54 PM EDT) Anatomical Region Laterality Modality Body Ultrasound 05/08/2025 2:43 PM EDT Impressions 05/09/2025 7:30 AM EDT Findings consistent with a live intrauterine gestation, current sonographic age of 12 weeks and 4 days resulting in an estimated date of delivery of November 16, 2025. TRANSCRIBED BY: ELECTRONICALLY SIGNED BY: Wolf Riggins MD Narrative 05/09/2025 7:30 AM EDT FINDINGS: A single intrauterine gestational sac is present. No subchorionic hemorrhage. A single pole is present. Normal heart rate at 154 beats per minute. Yolk sac also is seen. Current sonographic age is 12 weeks and 4 days based on the crown-rump length measurement of 6.1 cm. Based on this age, current estimated date of delivery is November 16, 2025. No pelvic fluid or adnexal mass present. Cervix closed, 7.3 cm length. Procedure Note Wolf Riggins MD - 05/09/2025 FINDINGS: A single intrauterine gestational sac is present. No subchorionichemorrhage. A single pole is present. Normal heart rate at154 beats per minute. Yolk sac also is seen. Current sonographic age is12 weeks and 4 days based on the crown-rump length measurement of 6.1 cm.Based on this age, current estimated date of delivery is November. No pelvic fluid or adnexal mass present. Cervix closed, 7.3 cmlength. IMPRESSION: Findings consistent with a live intrauterine gestation, currentsonographic age of 12 weeks and 4 days resulting in an estimated date ofdelivery of November 16, 2025. TRANSCRIBED BY: ELECTRONICALLY SIGNED BY: Wolf Riggins MD us Robi Marcelo DO IMG OB US PROCEDURES Final Resul t documented in this encounter Visit Diagnoses Diagnosis Missed menses Positive urine test ([facility]) documented in this encounter
--- OUTSIDE RECORDS SUMMARY | 2025-05-08 13:00 | XMS_ITS | Encounter Summary ---
Author Organization [facility] Address [address] [facility] [place] [address] Care Team Providers Care Special Education Secretary Name Role Phone Unavailable Primary Care Provider Unavailabl e Reason for Visit * Reason Comments Amenorrhea Encounter Details Date Type Department Care Team (Late st Contact Info) Description 05/08/2025 1:00 PM EDT Initial [facility] [address] [place] [id number] GA: 12w4d Social History Tobacco Use Types Packs/Day Years Used Date Smoking Tobacco: Never Assessed Estimated Date of Delivery Comme nts Yes 11/16/2025 Based on Ultraso und, FHR-154 Sex and Gender Information Value Date Recorded Sex Assigned at Not on file Legal Sex Female 9:11 AM EDT Gender Identity Not on file Sexual Orientation Not on file documented as of this encounter Last Filed Vital Signs Vital Sign Reading Time Taken Comments Blood Pressure 120/70 05/08/2025 1:21 PM EDT Pulse - - Temperature - - Respiratory Rate - - Oxygen Saturation - - Inhaled Oxygen Concentration - - Weight 74.7 kg (164 lb 9.6 oz) 05/08/2025 1:21 P M EDT Height - - Body Mass Index - - documented in this encounter Progress Notes * Kimmie Pitts LPN - 05/08/2025 1:00 PM EDT Reason for Appointment: Patient ID: Eva Granados is a 24 y.o. female who presents for Amenorrhea Patient presents today for a Nurse OB Intake appointment. Patient is 12w4d with a Estimated Date ofDelivery: 11/16/25 OB History Para Term AB Living 2 1 1 1 SAB IAB Ectopic Multiple Live Births 1 # Outcome Date GA Lbr Christian/2nd Weight Sex Type Anes PTL Lv 2 Current 1 Term 03/22/21 40w0d 03:51 / 01:06 8 lb 2.5 oz F EPI N JUDI Current Medications: has a current medication list which includes the following prescription(s): acetaminophen-codeine. Medical History: Active Ambulatory Problems Diagnosis Date Noted No Active Ambulatory Problems Resolved Ambulatory Problems Diagnosis Date Noted No Resolved Ambulatory Problems Past Medical History: Diagnosis Date Anemia No family history on file. Social History Tobacco Use Smoking status: Not on file Smokeless tobacco: Not on file Substance Use Topics Alcohol use: Not on file Drug use: Not on file History reviewed. No pertinent surgical history. Allergies Allergen Reactions Other Vitals: There is no height or weight on file to calculate BMI. BP: 120/70 Patient's last menstrual period was 04/14/2025. Assessment/Plan Diagnoses and all orders for this visit: Missed menses - US OB transvaginal; Future - Type and screen; Future - ABO/Rh; Future - CBC and differential - Hemoglobin A1c - RPR - Rubella antibody, IgG - Hepatitis B surface antigen - Hepatitis C antibody - HIV-1 and HIV-2 antibodies - Urine culture - POCT , urine manually resulted - POCT urinalysis dipstick manually resulted Positive urine test ([facility]) - US OB transvaginal; Future , unspecified gestational age ([facility]) - Type and screen; Future - ABO/Rh; Future - CBC and differential - Hemoglobin A1c - RPR - Rubella antibody, IgG - Hepatitis B surface antigen - Hepatitis C antibody - HIV-1 and HIV-2 antibodies - Rapid drug screen, urine; Future Encounter for supervision of normal first in first trimester ([facility]) - Rapid drug screen, urine; Future Nurse Note: OB Intake: Patient presents today for first OB visit. Patients history has been reviewed in great detail including any potential risks. Patient signed consent forms and patient desires testing in both trimesters. Patient currently has no complaints and has been advised to drink 6-8 glasses of water a day, eatno raw or undercooked meat, and stay away from [facility]. Patient has also been advised to not change litter boxes and eat 6 small meals a day. Patient has been consulted regarding the do's and don'ts ofpregnancy. Patient was given labs and all questions and concerns were answered. Patient given [place] to have obtained with Initial labs. Patient did have questions with taking Tylenol W/Codeine due to tooth pain. Patient advised to get dental note and follow with Dentist to make sure nothing underlying. Script for Magnesium and sent to pharmacy. Follow Up: Patient is to return in 4 weeks for routine OB appointment. Follow Up: Patient is to have labs drawn at directed and return to office for initial OB appointment with provider. Patient may call office as needed with any concerns or questions. Nurse Visit Completed by: Kimmie Pitts LPN documented in this encounter Plan of Treatment Upcoming Encounters Date Type Department Care Team (Late st Contact Info) Description 06/09/2025 10:40 AM EDT Routine [facility] [address] [place] [phone] Robi Robertson DO [address] [facility] [place] [address] Scheduled Orders Name Type Priority Associated Diagnoses Orde r Schedule Type and screen Lab Routine Missed menses , unspecified gestational age ([facility]) Expected: 05/08/2025 (Approximate), Expires: 05/08/2026 ABO/Rh Lab Routine Missed menses , unspecified gestational age ([facility]) Expected: 05/08/2025 (Approximate), Expires: 05/08/2026 CBC and differential Lab Routine Missed menses , unspecified gestational age ([facility]) Ordered: 05/08/2025 Hemoglobin A1c Lab Routine Missed menses , unspecified gestational age ([facility]) Ordered: 05/08/2025 RPR Lab Routine Missed menses , unspecified gestational age ([facility]) Ordered: 05/08/2025 Rubella antibody, IgG Lab Routine Missed menses , unspecified gestational age ([facility]) Ordered: 05/08/2025 Hepatitis B surface antigen Lab Routine Missed menses , unspecified gestational age ([facility]) Ordered: 05/08/2025 Hepatitis C antibody Lab Routine Missed menses , unspecified gestational age ([facility]) Ordered: 05/08/2025 HIV-1 and HIV-2 antibodies Lab Routine Missed menses , unspecified gestational age ([facility]) Ordered: 05/08/2025 Urine culture Microbiology Routine Missed menses Ordered: 05/08/2025 Rapid drug screen, urine Lab Routine , unspecified gestational age ([facility]) Encounter for supervision of normal first in first trimester ([facility]) Expected: 05/08/2025 (Approximate), Expires: 05/08/2026 documented as of this encounter Procedures Procedure Name Priority Date/Time Associated Diagnosis Comments POCT URINALYSIS DIPSTICK Routine 05/08/2025 1:04 PM EDT Missed menses POCT , URINE Routine 05/08/2025 1:02 PM EDT Missed menses documented in this encounter Results * (ABNORMAL) POCT urinalysis dipstick manually resulted (05/08/2025 1:04 PM EDT) Color, UA Miriam Clarity, UA Clear Glucose, UA Negative Negative - 2000(110) ++++ mg/dL Bilirubin, UA Negative Negative - 4(70) +++ mg/dL Ketones, UA Negative Negative - 160(16) ++++ mg/dL Spec Grav, UA 1.025 1 - 1.03 Blood, UA Positive Negative - 50 Obey/mcL pH, UA 6.0 5 - 9 Protein, UA Negative Negative - 2000(20) ++++ mg/dL Urobilinogen, UA 1.0 0.2 - 12 mg/dL Leukocytes, UA Negative Negative - 500+++ Hai/mcL Nitrite, UA Negative Negative - Positive Urine 05/08/2025 1:04 PM EDT Robi Robertson DO POINT OF CARE TEST ENTER/EDIT OR DERABLES Final Result * (ABNORMAL) POCT , urine manually resulted (05/08/2025 1:02 PM EDT) Preg Test, Ur Positive Negative Urine 05/08/2025 1:02 PM EDT us Robi Marcelo DO POINT OF CARE TEST ENTER/EDIT OR DERABLES Final Result * US OB transvaginal (05/08/2025 12:54 PM [...] Diagnoses Diagnosis Missed menses Positive urine test ([facility]) Missed menses Positive urine test ([facility]) , unspecified gestational age ([facility]) Encounter for supervision of normal first in first trimester ([facility]) Nonintractable headache, unspecified chronicity pattern, unspecified headache type documented in this encounter
[2025-05-12 08:43] VITALS: BP 117/66; PULSE 68; TEMP 37.2; O2SAT 97; BMI 26.6
--- OUTSIDE RECORDS SUMMARY | 2025-05-12 08:45 | XMS_ITS | Patient Health Record ---
Author Organization [facility] [place] Address [address] [place] [address] Care Team Providers Care Guardian Ad Litem Name Role Phone Tata Turner Primary Care Provider Allergies No Known Allergies Results Component Value Reference Range Notes CBC AUTO DIFF Reviewed date:11/15/2024 08:35:40 AM Interpretation: Performing Lab: Notes/Report: [facility] , White Blood Count 7.5 4.0-11.0 10 3/uL Red Blood Count 4.43 4.20-5.40 10 6/uL Hemoglobin 13.6 12.0-16.0 g/dL Hematocrit 38.9 36.0-48.0 % Mean Corpuscular Volume 87.8 81.0-99.0 fL Mean Corpuscular Hemoglobin 30.7 26.7-34.0 pg Mean Corpuscular HGB Conc 35.0 29.9-35.2 g/dL Red Cell Distribution Width 12.9 11.0-15.0 % Platelet Count 137 150-450 10 3/uL Mean Platelet Volume 11.0 9.5-13.5 fL Neutrophils Percent Auto 60.8 43.0-75.0 % Lymphocytes Percent Auto 28.2 20.5-60.0 % Monocytes Percent Auto 8.3 1.7-12.0 % Eosinophils Percent Auto 1.9 0.9-7.0 % Basophils Percent Auto 0.5 0.2-2.0 % Immature Granulocytes Pct Auto 0.3 0.0-0.5 % Neutrophils Absolute Auto 4.6 1.4-6.5 10 3/uL Lymphocytes Absolute Auto 2.1 1.2-3.8 10 3/uL Monocytes Absolute Auto 0.6 0.3-0.8 10 3/uL Eosinophils Absolute Auto 0.1 0.0-0.7 10 3/uL Basophils Absolute Auto 0.0 0.0-0.1 10 3/uL Immature Granulocytes Abs Auto 0.02 0.00-0.03 10 3/uL Performing Lab: see note ML - [facility] LB UA RANDOM W or MICROSCOPIC Reviewed date:11/15/2024 08:35:40 AM Interpretation: Performing Lab: Notes/Report: [facility] , Color Urine YELLOW YELLOW Clarity Urine CLEAR CLEAR Specific Gordon Urine >=1.030 1.005-1.025 pH Urine 6.0 5.0-9.0 Protein Urine TRACE NEG/TRACE mg/dL Glucose Urine UA NEGATIVE NEGATIVE mg/dL Bilirubin Urine NEGATIVE NEGATIVE Ketones Urine 15 NEGATIVE mg/dL Blood Urine NEGATIVE NEGATIVE Nitrite Urine NEGATIVE NEGATIVE Urobilinogen Urine 1.0 0.2-1.0 EU/dL Leukocyte Esterase Urine NEGATIVE NEGATIVE WBC Urine 0-2 NONE SEEN #/HPF RBC Urine 0-2 0-2 #/HPF Bacteria Urine TRACE NONE SEEN #/HPF Mucus Urine MODERATE NONE SEEN Squamous Epithelial Cell Urine MODERATE NONE/RARE #/LPF Crystals Seen? None Seen None Seen #/HPF Cast Seen? NONE SEEN NONE SEEN #/LPF Performing Lab: see note ML - [facility] LB Salicylate Reviewed date:11/15/2024 08:35:40 AM Interpretation: Performing Lab: Notes/Report: [facility] , Salicylate <2.8 <=19.9 mg/dL Performing Lab: see note ML - [facility] LB Ethanol Reviewed date:11/15/2024 08:35:40 AM Interpretation: Performing Lab: Notes/Report: [facility] , Ethanol <3 NOTE: 80 mg/dl is the legal limit for a blood alcohol level Performing Lab: see note ML - [facility] LB HCG Qualitative Urine Reviewed date:11/15/2024 08:35:40 AM Interpretation: Performing Lab: Notes/Report: [facility] , HCG Qualitative Urine* NEGATIVE NEGATIVE Performing Lab: see note ML - [facility] LB ECG 12 lead Reviewed date:11/15/2024 08:35:40 AM Interpretation: Performing Lab: Notes/Report: Source Facility: [facility] [place] [address] [place] [address] Electrocardiograph Report Signed Patient: EVA DUONG MR#: [id number] : 2000 Acct:[id number] Age/Sex: 24 / F ADM Date: 11/14/24 Loc: ER Attending Dr: Ordering Physician: Sienna Liang Date of Service: 11/14/24 Procedure(s): ECG 12 lead Accession Number(s): [id number] cc: [facility] Test Date: 2024-11-14 Pat Name: EVA DUONG Department: Room: - Gender: Female Vibration 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 Signed By: 11/15/24 0529 DD/ 2305 TD/TT: Medical Insurance Claims Processor: [place] [address] Electrocardiograph Report Signed Patient: JOVANNA DUONG MR#: [id number] : 2000 Acct:[id number] Age/Sex: 24 / F ADM Date: 11/14/24 Loc: ER Attending Dr: Ordering Physician: Sienna Liang Date of Service: 11/14/24 Procedure(s): ECG 12 lead Accession Number(s): [id number] cc: [facility] Test Date: 2024-11-14 Pat Name: EVA GUERRA Department: 92 Room: - Gender: Female Vibration Engineer: : 2000 Requested By: TATA TURNER Order Number: [id number] Reading MD: ARLINE MONSIVAIS Measurements Intervals [place] Rate: 71 P: 83 MA: 148 QRS: 92 QRSD: 92 T: 58 QT: 374 QTc: 397 Interpretive Statements 1100 Sinus rhythm 1102 Sinus arrhythmia 7102 Moderate right axis deviation 9110 normal ECG No previous ECG available for comparison Electronically Gina boby On 11-15-2024 5:28:36 EST by ARLINE MONSIVAIS Dictated By: Rai Monsivais M.D. Signed By: 11/15/24 0529 DD/ TD/TT: Medical Insurance Claims Processor: CBC AUTO DIFF Reviewed date:05/09/2025 08:35:03 AM Interpretation: Performing Lab: Notes/Report: [facility] , White Blood Count 8.4 4.0-11.0 10 3/uL Red Blood Count 4.04 4.20-5.40 10 6/uL Hemoglobin 11.6 12.0-16.0 g/dL Hematocrit 33.5 36.0-48.0 % Mean Corpuscular Volume 82.9 81.0-99.0 fL Mean Corpuscular Hemoglobin 28.7 26.7-34.0 pg Mean Corpuscular HGB Conc 34.6 29.9-35.2 g/dL Red Cell Distribution Width 13.0 11.0-15.0 % Platelet Count 215 150-450 10 3/uL Mean Platelet Volume 10.5 9.5-13.5 fL Neutrophils Percent Auto 76.3 43.0-75.0 % Lymphocytes Percent Auto 17.0 20.5-60.0 % Monocytes Percent Auto 5.5 1.7-12.0 % Eosinophils Percent Auto 0.7 0.9-7.0 % Basophils Percent Auto 0.4 0.2-2.0 % Immature Granulocytes Pct Auto 0.1 0.0-0.5 % Neutrophils Absolute Auto 6.4 1.4-6.5 10 3/uL Lymphocytes Absolute Auto 1.4 1.2-3.8 10 3/uL Monocytes Absolute Auto 0.5 0.3-0.8 10 3/uL Eosinophils Absolute Auto 0.1 0.0-0.7 10 3/uL Basophils Absolute Auto 0.0 0.0-0.1 10 3/uL Immature Granulocytes Abs Auto 0.01 0.00-0.03 10 3/uL Performing Lab: see note ML - [facility] LB GLYCOHEMOGLOBIN A1C Reviewed date:05/09/2025 08:35:03 AM Interpretation: Performing Lab: Notes/Report: [facility] , Glycohemoglobin A1C 4.7 4.5-6.2 % > 7.0 ADA RECOMMENDED LIMIT 4.0 - 6.0 ACTION SUGGESTED ADA THERAPEUTIC TARGET < 7.0 Estimated Average Glucose 88 Performing Lab: see note - [facility] LB RUBELLA AB IGG Reviewed date:05/09/2025 08:35:03 AM Interpretation: Performing Lab: Notes/Report: [facility] , Rubella Antibodies, IgG 1.37 Immune > 0.99 index Immune >0.99 Material Disposition Inspector: Tariq Simpson PhD, Phone: [phone] Equivocal 0.90 - 0.[address] [place] [address] [phone] Non-immune <0.90 Performed at: [facility] Performing Lab: see note [facility] Rapid Plasma Reagin, Quant Reviewed date:05/09/2025 12:26:52 PM Interpretation: Performing Lab: Notes/Report: [facility] , Rapid Plasma Reagin, Quant Non Reactive NonRea<1:1 titer RPR and Confirmatory Treponema pallidum Antibodies [address] [place] [address] [phone] treponema-specific assay should be utilized, such as treated for syphilis infection. To screen for syphilis Performed at: [facility] Please Note: This test does not meet current guidelines for Material Disposition Inspector: Tariq Simpson PhD, Phone: [phone] infection, a reflex cascade that includes both RPR and a Rapid Plasma Reagin (RPR) Test With Reflex to Quantitative intended for following treatment response in patients being (659841). Treponema pallidum (Syphilis) Screening [place] (003560) or screening and diagnosis of syphilis. This test is Performing Lab: see note [facility] LB HCV Antibody RFX to Quant PC R Reviewed date:05/09/2025 08:35:03 AM Interpretation: Performing Lab: Notes/Report: [facility] , HCV Ab Non Reactive Non Reactive Interpretation: Comment . [address] [place] [address] [phone] infection. individual), or other evidence exists to indicate HCV Not infected with HCV unless early or acute infection is Performed at: [facility] Material Disposition Inspector: Tariq Simpson PhD, Phone: [phone] suspected (which may be delayed in an immunocompromised Performing Lab: see note [facility] LB HBsAg Screen Reviewed date:05/09/2025 12:26:52 PM Interpretation: Performing Lab: Notes/Report: [facility] , HBsAg Screen Negative Negative [address] [place] [address] [phone] Material Disposition Inspector: Tariq Simpson PhD, Phone: [phone] Performed at: [facility] Performing Lab: see note [facility] LB Pickerel Box Reviewed date:05/09/2025 08:35:03 AM Interpretation: Performing Lab: Notes/Report: [facility] , BOX Test Sent Out UNITY BOX BOX Test Reference Lab UN[facility]OX Test Date Sent 05/08/25 Performing Lab: see note - [facility] LB HIV Ab/p24 Ag with Reflex Reviewed date:05/09/2025 08:35:03 AM Interpretation: Performing Lab: [facility]Report: [facility] , HIV Ab/p24 Ag Screen Non Reactive Non Reactive HIV Negative [address] [place] [address] [phone] detected. There is no laboratory evidence of HIV infection. HIV-1/HIV-2 antibodies and HIV-1 p24 antigen were NOT Material Disposition Inspector: Tariq Simpson PhD, Phone: [phone] Performed at: [facility] Performing Lab: see note [facility] LB Type and Screen Reviewed date:05/09/2025 08:35:03 AM Interpretation: Performing Lab: Notes/Report: [facility] , Blood Type O Positive Antibody Screen NEGATIVE PREG QUANT HCG Reviewed date:01/24/2025 01:09:47 PM Interpretation: Performing Lab: Notes/Report: [facility] , HCG Quantitative 2119 5-50 0.2-1 WEEK 1,000-50,000 4-5 WEEKS 10,000-100,000 5-6 WEEKS 100-5,000 2-3 WEEKS 15,000-200,000 6-8 WEEKS 50-500 1-2 WEEKS 500-10,000 3-4 WEEKS 10,000-100,000 2-3 MONTHS Performing Lab: see note ML - [facility] LB Type and Screen Reviewed date:01/23/2025 11:51:00 AM Interpretation: Performing Lab: Notes/Report: [facility] , Blood Type O Positive Antibody Screen NEGATIVE PROF CHEM 8 (BAS METB) Reviewed date:01/23/2025 11:55:01 AM Interpretation: Performing Lab: Notes/Report: [facility] , Sodium 140 136-145 mmol/L Potassium 3.6 3.5-5.1 mmol/L Chloride 104 98-107 mmol/L Carbon Dioxide 26.6 21.0-32.0 mmol/L Anion Gap 13.0 Glucose 88 74-106 mg/dL Blood Urea Nitrogen 7.0 7.0-18.0 mg/dL Creatinine 0.66 0.55-1.02 mg/dL Estimated GFR ( Charo >60 >=60 mL/min/1.73m 2 Estimated GFR (Non- Judy >60 >=60 mL/min/1.73m 2 BUN Creatinine Ratio 10.6 Calcium 8.9 8.5-10.1 mg/dL Performing Lab: see note ML - [facility] LB PREG QUANT HCG Reviewed date:01/23/2025 11:55:01 AM Interpretation: Performing Lab: Notes/Report: [facility] , HCG Quantitative 99812 100-5,000 2-3 WEEKS 15,000-200,000 6-8 WEEKS 500-10,000 3-4 WEEKS 10,000-100,000 5-6 WEEKS 5-50 0.2-1 WEEK 50-500 1-2 WEEKS 1,000-50,000 4-5 WEEKS 10,000-100,000 2-3 MONTHS Performing Lab: see note ML - [facility] LB CBC AUTO DIFF Reviewed date:01/23/2025 11:55:01 AM Interpretation: Performing Lab: Notes/Report: [facility] , White Blood Count 6.9 4.0-11.0 10 3/uL Red Blood Count 3.96 4.20-5.40 10 6/uL Hemoglobin 12.2 12.0-16.0 g/dL Hematocrit 34.9 36.0-48.0 % Mean Corpuscular Volume 88.1 81.0-99.0 fL Mean Corpuscular Hemoglobin 30.8 26.7-34.0 pg Mean Corpuscular HGB Conc 35.0 29.9-35.2 g/dL Red Cell Distribution Width 13.2 11.0-15.0 % Platelet Count 208 150-450 10 3/uL Mean Platelet Volume 9.9 9.5-13.5 fL Neutrophils Percent Auto 72.7 43.0-75.0 % Lymphocytes Percent Auto 19.3 20.5-60.0 % Monocytes Percent Auto 6.1 1.7-12.0 % Eosinophils Percent Auto 1.2 0.9-7.0 % Basophils Percent Auto 0.6 0.2-2.0 % Immature Granulocytes Pct Auto 0.1 0.0-0.5 % Neutrophils Absolute Auto 5.0 1.4-6.5 10 3/uL Lymphocytes Absolute Auto 1.3 1.2-3.8 10 3/uL Monocytes Absolute Auto 0.4 0.3-0.8 10 3/uL Eosinophils Absolute Auto 0.1 0.0-0.7 10 3/uL Basophils Absolute Auto 0.0 0.0-0.1 10 3/uL Immature Granulocytes Abs Auto 0.01 0.00-0.03 10 3/uL Performing Lab: see note ML - [facility] LB Urine Culture - [facility] Reviewed date:01/20/2025 02:51:06 PM Interpretation: Performing Lab: Notes/Report: [facility] , Urine Culture - [facility] See Below For Report Urine Culture - [facility] >100,000 colonies/ml mixed Urine Culture - [facility] bacterial skin contaminants Urine Culture - [facility] >100,000 colonies/ml mixed Urine Culture - [facility] 2 Days Urine Culture - [facility] >100,000 colonies/ml mixed Urine Culture - [facility] Urine Culture - [facility] >100,000 colonies/ml mixed Urine Culture - [facility] Testing performed a [facility] Urine Culture - [facility] >100,000 colonies/ml mixed Urine Culture - [facility] [address] [place] [address] Urine Culture - [facility] >100,000 colonies/ml mixed Performing Lab: see note ML - [facility] LB URINE MICROSCOPIC ONLY Reviewed date:01/16/2025 11:54:33 AM Interpretation: Performing Lab: Notes/Report: [facility] , WBC Urine 0-2 NONE SEEN #/HPF RBC Urine 2-5 0-2 #/HPF Bacteria Urine SMALL NONE SEEN #/HPF Mucus Urine TRACE NONE SEEN Squamous Epithelial Cell Urine FEW NONE/RARE #/LPF Crystals Seen? None Seen None Seen #/HPF Cast Seen? NONE SEEN NONE SEEN #/LPF Urine Culture Indicated YES-[facility] Performing Lab: see note ML - [facility] LB UA (CLEAN or CATCH) PULP HOUSE SUPERVISOR or M ICRO IF IND. Reviewed date:01/16/2025 11:54:33 AM Interpretation: Performing Lab: Notes/Report: [facility] , Color Urine LT. YELLOW YELLOW Clarity Urine CLEAR CLEAR Specific Gordon Urine 1.020 1.005-1.025 pH Urine 7.5 5.0-9.0 Protein Urine NEGATIVE NEG/TRACE mg/dL Glucose Urine UA NEGATIVE NEGATIVE mg/dL Bilirubin Urine NEGATIVE NEGATIVE Ketones Urine NEGATIVE NEGATIVE mg/dL Blood Urine LARGE NEGATIVE Nitrite Urine NEGATIVE NEGATIVE Urobilinogen Urine 0.2 0.2-1.0 EU/dL Leukocyte Esterase Urine NEGATIVE NEGATIVE Urine Microscopic Indicated YES Performing Lab: see note ML - [facility] LB PROF 14(COMP METB) Reviewed date:01/16/2025 11:54:33 AM Interpretation: Performing Lab: Notes/Report: [facility] , Sodium 138 136-145 mmol/L Potassium 4.1 3.5-5.1 mmol/L Chloride 103 98-107 mmol/L Carbon Dioxide 25.2 21.0-32.0 mmol/L Anion Gap 13.9 Glucose 86 74-106 mg/dL Blood Urea Nitrogen 8.0 7.0-18.0 mg/dL Creatinine 0.68 0.55-1.02 mg/dL Estimated GFR ( Charo >60 >=60 mL/min/1.73m 2 Estimated GFR (Non- Judy >60 >=60 mL/min/1.73m 2 BUN Creatinine Ratio 11.8 Calcium 9.2 8.5-10.1 mg/dL Bilirubin Total 1.4 0.2-1.0 mg/dL Aspartate Amino Transferase 19 15-37 U/L Alanine Aminotransferase 23 14-59 U/L Alkaline Phosphatase 58 46-116 U/L Total Protein 7.3 6.4-8.2 g/dL Albumin Level 4.0 3.4-5.0 g/dL Globulin 3.3 Albumin Globulin Ratio 1.2 Performing Lab: see note ML - [facility] LB PREG QUANT HCG Reviewed date:01/16/2025 11:54:33 AM Interpretation: Performing Lab: Notes/Report: [facility] , HCG Quantitative 02260 500-10,000 3-4 WEEKS 1,000-50,000 4-5 WEEKS 15,000-200,000 6-8 WEEKS 10,000-100,000 5-6 WEEKS 5-50 0.2-1 WEEK 50-500 1-2 WEEKS 100-5,000 2-3 WEEKS 10,000-100,000 2-3 MONTHS Performing Lab: see note ML - [facility] LB CBC AUTO DIFF Reviewed date:01/16/2025 11:54:33 AM Interpretation: Performing Lab: Notes/Report: [facility] , White Blood Count 6.4 4.0-11.0 10 3/uL Red Blood Count 4.14 4.20-5.40 10 6/uL Hemoglobin 12.6 12.0-16.0 g/dL Hematocrit 36.2 36.0-48.0 % Mean Corpuscular Volume 87.4 81.0-99.0 fL Mean Corpuscular Hemoglobin 30.4 26.7-34.0 pg Mean Corpuscular HGB Conc 34.8 29.9-35.2 g/dL Red Cell Distribution Width 13.2 11.0-15.0 % Platelet Count 210 150-450 10 3/uL Mean Platelet Volume 10.3 9.5-13.5 fL Neutrophils Percent Auto 68.7 43.0-75.0 % Lymphocytes Percent Auto 23.1 20.5-60.0 % Monocytes Percent Auto 6.6 1.7-12.0 % Eosinophils Percent Auto 1.1 0.9-7.0 % Basophils Percent Auto 0.3 0.2-2.0 % Immature Granulocytes Pct Auto 0.2 0.0-0.5 % Neutrophils Absolute Auto 4.4 1.4-6.5 10 3/uL Lymphocytes Absolute Auto 1.5 1.2-3.8 10 3/uL Monocytes Absolute Auto 0.4 0.3-0.8 10 3/uL Eosinophils Absolute Auto 0.1 0.0-0.7 10 3/uL Basophils Absolute Auto 0.0 0.0-0.1 10 3/uL Immature Granulocytes Abs Auto 0.01 0.00-0.03 10 3/uL Performing Lab: see note ML - [facility] LB PROF 14(COMP METB) Reviewed date:11/15/2024 08:35:40 AM Interpretation: Performing Lab: Notes/Report: [facility] , Sodium 140 136-145 mmol/L Potassium 4.1 3.5-5.1 mmol/L Chloride 103 98-107 mmol/L Carbon Dioxide 25.0 21.0-32.0 mmol/L Anion Gap 16.1 Glucose 88 74-106 mg/dL Blood Urea Nitrogen 7.0 7.0-18.0 mg/dL Creatinine 0.71 0.55-1.02 mg/dL Estimated GFR ( Charo >60 >=60 mL/min/1.73m 2 Estimated GFR (Non- Judy >60 >=60 mL/min/1.73m 2 BUN Creatinine Ratio 9.9 Calcium 9.5 8.5-10.1 mg/dL Bilirubin Total 1.6 0.2-1.0 mg/dL Aspartate Amino Transferase 27 15-37 U/L Alanine Aminotransferase 18 14-59 U/L Alkaline Phosphatase 64 46-116 U/L Total Protein 7.7 6.4-8.2 g/dL Albumin Level 4.3 3.4-5.0 g/dL Globulin 3.4 Albumin Globulin Ratio 1.3 Performing Lab: see note ML - [facility] LB DRUG SCREEN RAPID (URINE) Reviewed date:11/15/2024 08:35:40 AM Interpretation: Performing Lab: Notes/Report: [facility] , Cannabinoid Screen Urine POSITIVE NEGATIVE Phencyclidine Screen Urine NEGATIVE NEGATIVE Cocaine Screen Urine NEGATIVE NEGATIVE Methamphetamines Screen Urine NEGATIVE NEGATIVE Opiate Screen Urine NEGATIVE NEGATIVE Amphetamine Screen Urine NEGATIVE NEGATIVE Benzodiazepines Screen Urine NEGATIVE NEGATIVE Tricyclic Antidepressant Urine NEGATIVE NEGATIVE Methadone Screen Urine NEGATIVE NEGATIVE Barbiturates Screen Urine NEGATIVE NEGATIVE Oxycodone Screen Urine NEGATIVE NEGATIVE Buprenorphine Screen Urine NEGATIVE NEGATIVE AMP (Amphetamine): 500 ng/mL PCP (Phencyclidine): 25 ng/mL BZO (Benzodiazepines): 150 ng/mL JUDSON (Cocaine): 150 ng/mL FOLLOWS: TCA (Trycyclic Antidepressants): 300 ng/mL BAR (Barbiturates): 200 ng/mL MTD (Methadone): 200 ng/mL BUP (Buprenorphine): 10 ng/mL DRUG CLASS TEST SYSTEM CUT-OFF CONCENTRATIONS ARE THC (Cannabinoids): 50 ng/mL OPI (Opiates): 100 ng/mL mAMP (Methamphetamine): 500 ng/mL OXY (Oxycodone): 100 ng/mL Performing Lab: see note ML - [facility] LB ACETAMINOPHEN Reviewed date:11/15/2024 08:35:40 AM Interpretation: Performing Lab: Notes/Report: [facility] , Acetaminophen <2.0 10.0-30.0 ug/mL Performing Lab: see note ML - [facility] LB XR thoracic spine 2V Reviewed date:05/27/2024 01:07:26 PM Interpretation: Performing Lab: Notes/Report: Source Facility: [facility] [place] [address] [place] [address] XRay Report Signed Patient: EVA DUONG MR#: [id number] : 2000 Acct:[id number] Age/Sex: 23 / F ADM Date: 05/24/24 Loc: [facility] Attending Dr: TATA TURNER Ordering Physician: TATA TURNER Date of Service: 05/24/24 Procedure(s): XR thoracic spine 2V Accession Number(s): [id number] cc: TATA TURNER [place] [address] Patient Name: EVA DUONG MRN: [id number] date: 2000 Sex: F Assigned Patient Location: [facility] Current Patient Location: Accession/Order Number: [id number] Exam Date: 05/24/2024 17:05 Report Date: 05/27/2024 07:28 At the request of: TATA TURNER Procedure: XR thoracic spine 2V EXAMINATION: XR thoracic spine 2V HISTORY: BACK PAIN M54.9 COMPARISON: No relevant comparison available. FINDINGS: BONES: Normal. No significant spondylosis, scoliosis, fracture, or visible bony lesion. DISC SPACES: Normal. No significant disc height narrowing, subluxation, or endplate abnormality. PARASPINOUS: Negative. No paraspinous abnormality is seen. OTHER: Negative. XR/XR thoracic spine 2V IMPRESSION: No acute radiographic abnormality Electronically authenticated by: FAISAL CARTER Date: 05/27/2024 07:28 Dictated By: Faisal Carter M.D. Signed By: 05/27/24729 DD/ 7 TD/TT: Medical Insurance Claims Processor: [place] [id number] XRay Report Signed Patient: JOVANNA DUONG MR#: [id number] : 2000 Acct:[id number] Age/Sex: 23 / F ADM Date: 05/24/24 Loc: [facility] Attending Dr: TATA TURNER Ordering Physician: TATA TURNER Date of Service: 05/24/24 Procedure(s): XR thoracic spine 2V Accession Number(s): [id number] cc: TATA TURNER [place] [id number] Patient Name: EVA DUONG MRN: [id number] date: 2000 Sex: F Assigned Patient Location: [facility] Current Patient Location: Accession/Order Numb er: [id number] Exam Date: 05/24/2024 17:05 Report Date: 05/27/2024 07:28 At the request of: TATA TURNER Procedure: XR thorac ic spine 2V EXAMINATION: XR thor acic spine 2V HISTORY: BACK PAIN M54.9 COMPARISON: No relev ant comparison available. FINDINGS: BONES: Normal. No significant spondylosis, scoliosis, fracture, or visible bony lesion. DISC SPACES: Normal. No significant disc height narrowing, subluxation, or endplate abnormality. PARASPINOUS: Negativ e. No paraspinous abnormality is seen. OTHER: Negative. X R/XR thoracic spine 2V IMPRESSION: No acute radiographi c abnormality Electronically authenticated by: FAISAL CARTER Date: 05/27/2024 07:28 Dictated By: Adria Carter M.D. Signed By: 05/27/24729 DD/ 7 TD/TT: Medical Insurance Claims Processor: CBC AUTO DIFF Reviewed date:01/24/2025 01:09:47 PM Interpretation: Performing Lab: Notes/Report: [facility] , White Blood Count 5.5 4.0-11.0 10 3/uL Red Blood Count 3.72 4.20-5.40 10 6/uL Hemoglobin 11.4 12.0-16.0 g/dL Hematocrit 33.3 36.0-48.0 % Mean Corpuscular Volume 89.5 81.0-99.0 fL Mean Corpuscular Hemoglobin 30.6 26.7-34.0 pg Mean Corpuscular HGB Conc 34.2 29.9-35.2 g/dL Red Cell Distribution Width 12.9 11.0-15.0 % Platelet Count 187 150-450 10 3/uL Mean Platelet Volume 9.9 9.5-13.5 fL Neutrophils Percent Auto 59.7 43.0-75.0 % Lymphocytes Percent Auto 30.7 20.5-60.0 % Monocytes Percent Auto 7.3 1.7-12.0 % Eosinophils Percent Auto 1.5 0.9-7.0 % Basophils Percent Auto 0.4 0.2-2.0 % Immature Granulocytes Pct Auto 0.4 0.0-0.5 % Neutrophils Absolute Auto 3.3 1.4-6.5 10 3/uL Lymphocytes Absolute Auto 1.7 1.2-3.8 10 3/uL Monocytes Absolute Auto 0.4 0.3-0.8 10 3/uL Eosinophils Absolute Auto 0.1 0.0-0.7 10 3/uL Basophils Absolute Auto 0.0 0.0-0.1 10 3/uL Immature Granulocytes Abs Auto 0.02 0.00-0.03 10 3/uL Performing Lab: see note ML - [facility] Reason For Referral No Information Medications Medication SIG (Take, Route, Fr equency, [...] ast year? No Points 0 Interpretation Negative Problems Problem Type SNOMED Code ICD Code Onset Dates Problem Status W/U Status Risk Notes Problem Borderline personality disorder (91822716) Borderline personality disorder (F60.3) Active confirmed Problem Anxiety (57044831) Anxiety (F41.9) Active confirmed Problem Depression (927046108) Depression (F32.9) Active confirmed Problem Mixed anxiety and depressive disorder (948866212) Anxiety and depression (F41.9) Active confirmed Vital Signs Blood pressure diastolic 70 mm Hg 11/19/2024 Height 66 in 11/19/2024 Blood pressure systolic 106 mm Hg 11/19/2024 Weight 170 lbs 11/19/2024 BMI 27.44 kg/m2 11/19/2024 Encounters Encounter Location Date Provider Diagnosis [facility] [address] [place] [address] 05/27/[address] [facility] [address] [place] [address] 07/18/[address] [facility] [address] [place] [address] 10/08/[address] [facility] [address] [place] [address] 12/06/2024 Tata Turner Anxiety and depression F41.[address] [facility] [address] [place] [address] 01/21/[address] [facility] [address] [place] [address] 05/20/2024 Tata Turner Back pain M54.[address] [facility] [address] [place] [address] 06/20/[address]24 Tata [address] F41.9 [facility] [address] [facility] [place] [address] 07/18/2024 Tata Turner Anxiety F41.9 [facility] [address] [place] [address] 08/13/2024 Tata Turner Anxiety F41.9 [address] Recurrent epistaxis R04.0 [facility] [address] [facility] [place] [address] 09/10/2024 Tata Turner Anxiety and depression F41.9 [facility] [address] [place] [address] 10/15/2024 Tata [address] F41.9 [facility] [address] [place] [address] 11/19/2024 Tata Yue Depression F32.9 Assessments Encounter Date Diagnosis (ICD Code) Assessment Notes Treatment Notes Treatment Clinical Notes Section Notes 06/20/2024 Anxiety (ICD-10 - F41.9) stop lexapro trial of effexor discussed possible SE vistaril prn fu one month counseling encouraged, referral sheet given 07/18/2024 Anxiety (ICD-10 - F41.9) increase dose effexor office checking into [facility] counseling as she hasnt heard back from them fu 1-3 months 08/13/2024 Anxiety (ICD-10 - F41.9) continue effexor, continue monitor, fu as needed 08/13/2024 Recurrent epistaxis (ICD-10 - R04.0) continue monitor saline nasal sprays humidifier 09/10/2024 Anxiety and depression (ICD-10 - F41.9) mood better on increased dose effexor not sure if likes vistaril, stop trial of added buspar for anxiety part has not done counseling fu 1-3 months 10/15/2024 Anxiety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
--- OUTSIDE RECORDS SUMMARY | 2025-05-12 08:45 | XMS_ITS | Clinical Summary ---
Author Organization [employer] s [employer] Address [id number] [address] [place] [address] Care Team Providers Care Manager Medicare Name Role Phone Jay Jay Horton Primary Care Provider Allergies Active Allergy Reactions Criticality Noted Date Comments Other 08/11/2016 Medications * This document contains information received from the source organization and may not represent a complete record from that organization. ibuprofen (ADVIL,MOTRIN) 800 mg tabletIndications: Acute nonintractable headache, unspecified headache type Take 1 tablet (800 mg total) by mouth every 8 (eight) hours as needed for pain or headaches. 30 tablet 11/21/19 19 Active Additional Information Patient not taking.Reported on 12/31/2018 ondansetron (ZOFRAN) 4 mg tabletIndications: Acute nonintractable headache, unspecified headache type Take 1 tablet (4 mg total) by mouth every 12 (twelve) hours as needed for nausea or vomiting. 10 tablet 11/21/19 19 Active Additional Information Patient not taking.Reported on 12/31/2018 ondansetron ODT (ZOFRAN ODT) 4 mg disintegrating tabletIndications: Nausea Dissolve 1 tablet (4 mg total) on tongue every 6 (six) hours as needed for nausea or vomiting. 15 tablet 01/01/20 19 Active ibuprofen (ADVIL,MOTRIN) 800 mg tabletIndications: Nonintractable episodic headache, unspecified headache type Take 1 tablet (800 mg total) by mouth every 8 (eight) hours as needed for pain or headaches. 30 tablet 01/01/20 19 Active Active Problems Problem Noted Date Diagnosed Date Overdose 08/11/2016 Acute kidney injury 08/11/2016 Depression 08/11/2016 Suicidal ideation 08/10/2016 Intentional drug overdose 08/10/2016 Immunizations No known immunizations Family History Medical History Relation Name Comments Diabetes Maternal Grandmother Breast cancer Neg Hx Colon cancer Neg Hx Ovarian cancer Neg Hx Uterine cancer Neg Hx Relation Name Status Comments Father Alive Maternal Grandfather Alive Maternal Grandmother Alive Mother Alive Paternal Grandfather Alive Paternal Grandmother Alive Sister Alive Social History Tobacco Use Types Packs/Day Years Used Date Smoking Tobacco: Every Day Cigarettes 0.3 1 Vaping/E-cigarettes Smokeless Tobacco: Never Tobacco Cessation:Ready to Q uit: No Alcohol Use Standard Drinks/Week Comments Yes 0 (1 standard drink = 0.6 oz pur e alcohol) socially 2x a month Childcare Answer Date Recorded Childcare Unknown 03/11/2019 Employment Answer Date Recorded Employment Unknown 03/11/2019 Purpose - Life Answer Date Recorded Purpose and direction in life Unknown Comments No Sex and Gender Information Value Date Recorded Sex Assigned at Not on file Legal Sex Female 1:52 PM EDT Gender Identity Not on file Sexual Orientation Not on file Last Filed Vital Signs Vital Sign Reading Time Taken Comments Blood Pressure 134/73 12/31/2018 6:31 PM EDT Pulse 77 12/31/2018 6:31 PM EDT Temperature 36.9 C (98.4 F) 12/31/2018 6:31 PM EDT Respiratory Rate 18 12/31/2018 6:31 PM EDT Oxygen Saturation 100% 12/31/2018 6:31 PM EDT Inhaled Oxygen Concentration - - Weight 87.5 kg (192 lb 12.8 oz) 12/31/2018 6:31 PM EDT Height 165.1 cm (5' 5 ) 12/31/2018 6:31 PM EDT Body Mass Index 32.08 12/31/2018 6:31 PM EDT Plan of Treatment Health Maintenance Due Date Last Done Comments Depression Screening 2012 Tobacco Screening 2012 Adult BMI Screening 2018 DTaP,Tdap and Td Vaccines (1 - Tdap) 2019 Pap Smear 2021 Influenza Vaccine 06/02/2025 Medical Devices Not on file Insurance [facility] MEDICAID [facility] MEDICAID Care Teams Manager Medicare Relationship Specialty Start Date End Date Pediatrics, Jay Jay Hu [address] [facility] [place] [address] PCP - General Pediatrics 11/21/18
--- OUTSIDE RECORDS SUMMARY | 2025-05-12 08:46 | XMS_ITS | Encounter Summary ---
Author Organization [facility] Address [address] [place] [address] Care Team Providers Care Tube Fitter Name Role Phone Unavailable Primary Care Provider Unavailabl e Encounter Details Date Type Department Care Team (Late st Contact Info) Description 05/08/2025 Clinisync Result Encounter [facility] External Department Unsolicited Robi Robertson, DO [address] [place], [place] [id number] Social History Tobacco Use Types Packs/Day Years [...] Info) Description 06/09/2025 10:40 AM EDT Routine [facility] [place] [facility] [address] [place] [address] Robi Robertson DO [address] [place], [place] [phone] documented as of this encounter Procedures Procedure Name Priority Date/Time Associated Diagnosis Comments BOX TEST Routine 05/08/2025 3:05 PM EDT HBSAG SCREEN Routine 05/08/2025 3:05 PM EDT RAPID PLASMA REAGIN, QUANT Routine 05/08/2025 3:05 PM EDT HIV AB/P24 AG WITH REFLEX Routine 05/08/2025 3:05 PM EDT HCV ANTIBODY RFX TO QUANT PCR Routine 05/08/2025 3:05 PM EDT MLR HEMOGLOBIN A1C Routine 05/08/2025 3: 05 PM EDT ALL TYPE AND SCREEN Routine 05/08/2025 3 :05 PM EDT ALL RUBELLA IGG AB Routine 05/08/2025 3: 05 PM EDT ALL CBC WITH AUTO DIFF Routine 05/08/2025 3:05 PM EDT documented in this encounter Results * HBSAG SCREEN (05/08/2025 3:05 PM EDT) Pathologist [facility] HBSAG SCREEN Negative Negative [facility] Comment: Performed at: [facility] [address] [id number] Tire Beader Maker: Tariq Simpson PhD, Phone: [phone] 05/08/2025 3:05 PM EDT 05/08/2025 3:22 PM EDT Narrative NILAMISYNC - 05/09/2025 12:08 PM EDT us Robi Robertson DO LAB BLOOD ORDERABLES Final [facility]ul t [facility] * RAPID PLASMA REAGIN, QUANT (05/08/2025 3:05 PM EDT) [facility] RAPID PLASMA REAGIN, QUANT Non Reactive NonRea<1: 1 titer [facility] Comment: Please Note: This test does not meet current guidelines for screening and diagnosis of syphilis. This test is intended for following treatment response in patients being treated for syphilis infection. To screen for syphilis infection, a reflex cascade that includes both RPR and a treponema-specific assay should be utilized, such as Treponema pallidum (Syphilis) Screening Outlook (154715) or Rapid Plasma Reagin (RPR) Test With Reflex to Quantitative RPR and Confirmatory Treponema pallidum Antibodies (186360). Performed at: [address] [id number] Tire Beader Maker: Tariq Simpson PhD, Phone: [phone] 05/08/2025 3:05 PM EDT 05/08/2025 3:22 PM EDT Narrative CLINISYAZ - 05/09/2025 12:08 PM EDT [employer] DO LAB BLOOD ORDERABLES Final Resul t Performing Organization Address [facility] Co de Phone Number CLINISYAZ TB * HCV ANTIBODY RFX TO QUANT PCR (05/08/2025 3:05 PM EDT) HCV AB Non Reactive Non Reactive TB INTERPRETATION: Comment . TB Comment: Not infected with HCV unless early or acute infection is suspected (which may be delayed in an immunocompromised individual), or other evidence exists to indicate HCV infection. Performed at: [address] [id number] Tire Beader Maker: Tariq Simpson PhD, Phone: [phone] 05/08/2025 3:05 PM EDT 05/08/2025 3:22 PM EDT Narrative CLINISYAZ - 05/09/2025 7:07 AM EDT [employer] LAB BLOOD ORDERABLES Final Resul t Performing Organization Address [facility] Co de Phone Number CL[facility]YAZ TB * ALL RUBELLA IGG AB (05/08/2025 3:05 PM EDT) RUBELLA ANTIBODIES, IGG 1.37 Immune >0.99 index TBH Comment: Non-immune <0.90 Equivocal 0.90 - 0.99 Immune >0.99 Performed at: [address] [id number] Tire Beader Maker: Tariq Simpson PhD, Phone: [phone] 05/08/2025 3:05 PM EDT 05/08/2025 3:22 PM EDT Narrative CLINISYNC - 05/09/2025 7:07 AM EDT us Robi Marcelo DO CLINISYNC Final Result [facility] * HIV AB/P24 AG WITH REFLEX (05/08/2025 3:05 PM EDT) HIV AB/P24 AG SCREEN Non Reactive Non Reactive TB Comment: HIV-1/HIV-2 antibodies and HIV-1 p24 antigen were NOT detected. There is no laboratory evidence of HIV infection. HIV Negative Performed at: [facility] [id number] Tire Beader Maker: Tariq Simpson PhD, Phone: [phone] 05/08/2025 3:05 PM EDT 05/08/2025 3:22 PM EDT Narrative CLINISYNC - 05/09/2025 5:07 AM EDT Robi Marcelo DO LAB BLOOD ORDERABLES Final Resul t Performing Organization Address [facility] Co de Phone Number [facility] * ALL TYPE AND SCREEN (05/08/2025 3:05 PM EDT) BLOOD TYPE O Positive TBH ANTIBODY SCREEN NEGATIVE TB 05/08/2025 3:05 PM EDT 05/08/2025 3:22 PM EDT Narrative CLINISYNC - 05/08/2025 5:14 PM EDT [facility] , [place] Robi Marcelo DO CLINISYNC Final Result Performing Organization Address [facility] Co de Phone Number [facility] * MLR HEMOGLOBIN A1C (05/08/2025 3:05 PM EDT) Pathologist [facility] GLYCOHEMOGLOBIN A1C 4.7 4.5 - 6.2 % TBH Comment: ADA RECOMMENDED LIMIT 4.0 - 6.0 ADA THERAPEUTIC TARGET < 7.0 ACTION SUGGESTED > 7.0 ESTIMATED AVERAGE GLUCOSE 88 mg/dL TBH 05/08/2025 3:05 PM EDT 05/08/2025 3:22 PM EDT Narrative CLINISYNC - 05/08/2025 3:50 PM EDT us Robi Robertson DO CLINISYNC Final Result [facility] TB * (ABNORMAL) ALL CBC WITH AUTO DIFF (05/08/2025 3:05 PM EDT) TB WBC 8.4 4.0 - 11.0 10 3/uL TBH TBH RBC 4.04(L) 4.20 - 5.40 10 6/uL TBH TBH HGB 11.6(L) 12.0 - 16.0 g/dL TBH TBH HCT 33.5(L) 36.0 - 48.0 % TBH TBH MCV 82.9 81.0 - 99.0 fL TBH TBH MCH 28.7 26.7 - 34.0 pg TBH TBH MCHC 34.6 29.9 - 35.2 g/dL TBH TBH RDW 13.0 11.0 - 15.0 % TBH TBH PLT 215 150 - 450 10 3/uL TBH TBH MPV 10.5 9.5 - 13.5 fL TBH NEUTROPHILS PERCENT AUTO 76.3(H) 43.0 - 75.0 % TBH LYMPHOCYTES PERCENT AUTO 17.0(L) 20.5 - 60.0 % TBH MONOCYTES PERCENT AUTO 5.5 1.7 - 12.0 % TBH TBH EO % 0.7(L) 0.9 - 7.0 % TBH BASOPHILS PERCENT AUTO 0.4 0.2 - 2.0 % TBH IMMATURE GRANULOCYTES PCT AUTO 0.1 0.0 - 0.5 % TBH NEUTROPHILS ABSOLUTE AUTO 6.4 1.4 - 6.5 10 3/uL TBH LYMPHOCYTES ABSOLUTE AUTO 1.4 1.2 - 3.8 10 3/uL TBH MONOCYTES ABSOLUTE AUTO 0.5 0.3 - 0.8 10 3/uL TBH TBH EO # 0.1 0.0 - 0.7 10 3/uL TBH BASOPHILS ABSOLUTE AUTO 0.0 0.0 - 0.1 10 3/uL TBH IMMATURE GRANULOCYTES ABS AUTO 0.01 0.00 - 0.03 10 3/uL TBH 05/08/2025 3:05 PM EDT 05/08/2025 3:22 PM EDT Narrative CLINISYNC - 05/08/2025 3:41 PM EDT us Robi Marcelo DO CLINISYNC Final Result [facility] * BOX TEST (05/08/2025 3:05 PM EDT) BOX TEST SENT OUT UNITY BOX TBH BOX1 UNITY [facility] BOX2 05/08/25 [facility] 05/08/2025 3:05 PM EDT 05/08/2025 3:22 PM EDT Narrative CLINISYNC - 05/08/2025 3:30 PM EDT us Robi Marcelo DO LAB BLOOD ORDERABLES Final Resul t [facility] documented in this encounter Visit Diagnoses Not on filedocumented in this encounter
--- OUTSIDE RECORDS SUMMARY | 2025-05-12 08:46 | XMS_ITS | Clinical Summary ---
Author Organization [facility] Address [address] [place] [address] Care Team Providers Care Sales Enablement Manager Name Role Phone Unavailable Primary Care Provider Unavailabl e Allergies Active Allergy Reactions Criticality Noted Date Comments Other 08/11/2016 Medications acetaminophen-co deine (Tylenol w/ Codeine #3) 300-30 MG tablet Take 1 tablet by mouth every 4 (four) hours if needed for moderate pain 5 Active Vit-Fe Fumarate-FA ( Vitamins) 28-0.8 MG tabletIndication s:Positive urine test ([facility]) Take 1 tablet by mouth Daily 30 tablet 11 5 05/08/20 26 Active magnesium oxide (Mag-Ox) 400 MG tabletIndication s:Nonintractable headache, unspecified chronicity pattern, unspecified headache type Take 1 tablet (400 mg) by mouth Daily 30 tablet 5 06/07/20 25 Active Encounters Date Type Department Care Team Description 05/08/2025 1:00 [place] [address] GA: 12w4d 05/08/2025 12:30 PM EDT [place] [address] Missed menses; Positive urine test ([facility]) 05/08/2025 [place] [address] MarceloRobi au DO 05/08/2025 Clinisync Result Encounter NOMS External Department Unsolicited Robi Robertson DO 05/08/2025 Telephone [facility] [address] [place] [address] Robi Robertson DO from Last 3 Months Social History Tobacco Use Types Packs/Day Years [...] - - Body Mass Index - - Plan of Treatment Upcoming Encounters Date Type Department Care Team (Late st Contact Info) Description 06/09/2025 10:40 AM EDT Routine [facility] [address] [place] [phone] Robi Robertson, [address] [place] [address] Procedures Procedure Name Priority Date/Time Associated Diagnosis Comments HBSAG SCREEN Routine 05/08/2025 3:05 PM EDT RAPID PLASMA REAGIN, QUANT Routine 05/08/2025 3:05 PM EDT HCV ANTIBODY RFX TO QUANT PCR Routine 05/08/2025 3:05 PM EDT ALL RUBELLA IGG AB Routine 05/08/2025 3: 05 PM EDT HIV AB/P24 AG WITH REFLEX Routine 05/08/2025 3:05 PM EDT ALL TYPE AND SCREEN Routine 05/08/2025 3 :05 PM EDT MLR HEMOGLOBIN A1C Routine 05/08/2025 3: 05 PM EDT ALL CBC WITH AUTO DIFF Routine 05/08/2025 3:05 PM EDT BOX TEST Routine 05/08/2025 3:05 PM EDT POCT URINALYSIS DIPSTICK Routine 05/08/2025 1:04 PM EDT Missed menses POCT , URINE Routine 05/08/2025 1:02 PM EDT Missed menses US OB TRANSVAGINAL Routine 05/08/2025 12 :54 PM EDT Missed menses Positive urine test ([facility]) from Last 3 Months Results * BOX TEST (05/08/2025 3:05 PM EDT) BOX TEST SENT OUT UNITY BOX TBH BOX1 UNITY [facility] BOX2 05/08/25 [facility] 05/08/2025 3:05 PM EDT 05/08/2025 3:22 PM EDT Narrative CLINISYNC - 05/08/2025 3:30 PM EDT us Robi Marcelo DO LAB BLOOD ORDERABLES Final Resul t CLINISYNC [facility] * HBSAG SCREEN (05/08/2025 3:05 PM EDT) HBSAG SCREEN Negative Negative [facility] Comment: Performed at: - [address] [id number] Loss Prevention Leader: Tariq Simpson PhD, Phone: [phone] 05/08/2025 3:05 PM EDT 05/08/2025 3:22 PM EDT Narrative CLINISYNC - 05/09/2025 12:08 PM EDT us Robi Marcelo DO LAB BLOOD ORDERABLES Final Resul t Performing Organization Address City/[facility]/ZIP Co de Phone Number [facility] * RAPID PLASMA REAGIN, QUANT (05/08/2025 3:05 PM EDT) RAPID PLASMA REAGIN, QUANT Non Reactive NonRea<1: 1 titer [facility] Comment: Please Note: This test does not meet current guidelines for screening and diagnosis of syphilis. This test is intended for following treatment response in patients being treated for syphilis infection. To screen for syphilis infection, a reflex cascade that includes both RPR and a treponema-specific assay should be utilized, such as Treponema pallidum (Syphilis) Screening [place] (116522) or Rapid Plasma Reagin (RPR) Test With Reflex to Quantitative RPR and Confirmatory Treponema pallidum Antibodies (006876). Performed at: [facility] [id number] Loss Prevention Leader: Tariq Simpson PhD, Phone: [phone] 05/08/2025 3:05 PM EDT 05/08/2025 3:22 PM EDT Narrative [facility] - 05/09/2025 12:08 PM EDT us Robi Marcelo DO LAB BLOOD ORDERABLES Final Resul t Performing Organization Address City/[facility]/ZIP Co de Phone Number [facility] * HIV AB/P24 AG WITH REFLEX (05/08/2025 3:05 PM EDT) HIV AB/P24 AG SCREEN Non Reactive Non Reactive [facility] Comment: HIV-1/HIV-2 antibodies and HIV-1 p24 antigen were NOT detected. There is no laboratory evidence of HIV infection. HIV Negative Performed at: [facility] [id number] Loss Prevention Leader: Tariq Simpson PhD, Phone: [phone] 05/08/2025 3:05 PM EDT 05/08/2025 3:22 PM EDT Narrative CLINISYNC - 05/09/2025 5:07 AM EDT Robi Marcelo DO LAB BLOOD ORDERABLES Final Resul t Performing Organization Address City/[facility]/ZIP Co de Phone Number [facility] * HCV ANTIBODY RFX TO QUANT PCR (05/08/2025 3:05 PM EDT) Pathologist [facility] HCV AB Non Reactive Non Reactive [facility] INTERPRETATION: Comment . [facility] Comment: Not infected with HCV unless early or acute infection is suspected (which may be delayed in an immunocompromised individual), or other evidence exists to indicate HCV infection. Performed at: [facility] [id number] Loss Prevention Leader: Tariq Simpson PhD, Phone: [phone] 05/08/2025 3:05 PM EDT 05/08/2025 3:22 PM EDT Narrative CLINISYNC - 05/09/2025 7:07 AM EDT [employer] DO LAB BLOOD ORDERABLES Final Resul t Performing Organization Address [facility] Co de Phone Number [facility] * MLR HEMOGLOBIN A1C (05/08/2025 3:05 PM EDT) [facility] GLYCOHEMOGLOBIN A1C 4.7 4.5 - 6.2 % [facility] Comment: ADA RECOMMENDED LIMIT 4.0 - 6.0 ADA THERAPEUTIC TARGET < 7.0 ACTION SUGGESTED > 7.0 ESTIMATED AVERAGE GLUCOSE 88 mg/dL TB 05/08/2025 3:05 PM EDT 05/08/2025 3:22 PM EDT Narrative CLINISYNC - 05/08/2025 3:50 PM EDT Robi Marcelo DO CLINISYNC Final Result [facility] * ALL TYPE AND SCREEN (05/08/2025 3:05 PM EDT) [facility] BLOOD TYPE O Positive TBH ANTIBODY SCREEN NEGATIVE TBH 05/08/2025 3:0 5 PM EDT 05/08/2025 3:22 PM EDT Narrative CLINISYNC - 05/08/2025 5:14 PM EDT [facility] , [place] Robi Marcelo DO CLINISYNC Final Result [facility] * ALL RUBELLA IGG AB (05/08/2025 3:05 PM EDT) [facility] RUBELLA ANTIBODIES, IGG 1.37 Immune >0.99 index TBH Comment: Non-immune <0.90 Equivocal 0.90 - 0.99 Immune >0.99 Performed at: [facility] [address] [id number] Loss Prevention Leader: Tariq Simpson PhD, Phone: [phone] 05/08/2025 3:05 PM EDT 05/08/2025 3:22 PM EDT Narrative CLINISYNC - 05/09/2025 7:07 AM EDT us Robi Marcelo DO CLINISYNC Final Result Performing Organization Address City/[facility]/ZIP Co de Phone Number [facility] * (ABNORMAL) ALL CBC WITH AUTO DIFF (05/08/2025 3:05 PM EDT) [facility] WBC 8.4 4.0 - 11.0 10 3/uL TBH TB RBC 4.04(L) 4.20 - 5.40 10 6/uL TBH TBH HGB 11.6(L) 12.0 - 16.0 g/dL TB TB HCT 33.5(L) 36.0 - 48.0 % TBH TBH MCV 82.9 81.0 - 99.0 fL TBH TBH MCH 28.7 26.7 - 34.0 pg TBH TBH MCHC 34.6 29.9 - 35.2 g/dL TBH TB RDW 13.0 11.0 - 15.0 % TBH [...] - 05/08/2025 3:41 PM EDT us Robi Robertson DO CLINISYNC Final Result [facility] * (ABNORMAL) POCT urinalysis dipstick manually resulted (05/08/2025 1:04 PM EDT) Color, UA Miriam Clarity, UA Clear Glucose, UA Negative Negative - 1999(110) ++++ mg/dL Bilirubin, UA Negative Negative - 4(70) +++ mg/dL Ketones, UA Negative Negative - 160(16) ++++ mg/dL Spec Grav, UA 1.025 1 - 1.03 Blood, UA Positive Negative - 50 Obey/mcL pH, UA 6.0 5 - 9 Protein, UA Negative Negative - 1999(20) ++++ mg/dL Urobilinogen, UA 1.0 0.2 - 12 mg/dL Leukocytes, UA Negative Negative - 500+++ Hai/mcL Nitrite, UA Negative Negative - Positive Urine 05/08/2025 1:04 PM EDT us Robi Marcelo DO POINT [...] IMG OB US PROCEDURES Final Resul t from Last 3 Months Insurance [employer]
--- OUTSIDE RECORDS SUMMARY | 2025-05-12 08:46 | XMS_ITS | Encounter Summary ---
Author Organization [facility] Address [address] [place] [address] Care Team Providers Care Freelance Digital Project Manager Name Role Phone Unavailable Primary Care Provider Unavailabl e Encounter Details Date Type Department Care Team (Late st Contact Info) Description 05/08/2025 Telephone [facility] [address] [place] [phone] Robi Robertson DO [address] [place], [facility] Social History Tobacco Use Types Packs/Day Years Used Date Smoking Tobacco: Never Assessed Estimated Date of Delivery Comme nts Yes 11/16/2025 Based on Ultraso und, [id number] Sex and Gender Information Value Date Recorded Sex Assigned at Not on file Legal Sex Female 9:11 AM EDT Gender Identity Not on file Sexual Orientation Not on file documented as of this encounter Miscellaneous Notes * Telephone Encounter - Kimmie Pitts LPN - 05/08/2025 1:41 PM EDT Patient was in for intake and she was asking if she can take Tylenol w/Codeine for some mouth pain.Patient states you gave her this for her miscarriage earlier in the year. Patient was advised to take Regular Tylenol at this time and follow up with Dentist. documented in this encounter Plan of Treatment Upcoming Encounters Date Type Department Care Team (Late st Contact Info) Description 06/09/2025 10:40 AM EDT Routine [facility] [address] [place] [address] Robi Robertson DO [address] [place] [address] documented as of this encounter Visit Diagnoses Not on filedocumented in this encounter
--- OUTSIDE RECORDS SUMMARY | 2025-05-12 08:46 | XMS_ITS | Encounter Summary ---
Author Organization [facility] Address [address] [place] [address] Care Team Providers Care Acid Remover Name Role Phone Unavailable Primary Care Provider Unavailabl e Encounter Details Date Type Department Care Team (Late st Contact Info) Description 05/08/2025 Abstract YANELI HATHAWAY [address] [place] [id number] Robi Robertson DO [address] [place], [facility] Social History Tobacco Use Types Packs/Day [...] 10:40 AM EDT Routine YANELI HATHAWAY [address] [place] [id number] Robi Robertson DO [address], [place] [id number] documented as of this encounter Visit Diagnoses Not on filedocumented in this encounter
--- NOTE | 2025-05-12 08:51 | ED.GENADUL1 ---
HPI HPI - General Adult General Chief complaint: OB/Uterine Contractions Stated complaint: 13 WEEKS BLEEDING Time Seen by Provider: 05/12/25 08:44 Source: patient Mode of arrival: walk-in History of Present Illness HPI narrative: 24-year-old female presents for vaginal bleeding. She states she is 13 weeks by ultrasound. She had the bleeding today and does not have any abdominal pain or cramping. It happened 1 time. No trauma or injury. Related Data Home Medications ?Medication ?Instructions ?Recorded ?Confirmed magnesium oxide 400 mg (241.3 mg 400 mg PO DAILY 05/12/25 05/12/25 magnesium) tablet vit no.95-ferrous 1 tab PO DAILY 05/12/25 05/12/25 fumarate 28 mg-folic acid 800 mcg tablet () Allergies Allergy/AdvReac Type Severity Reaction Status Date / Time No Known Drug Allergies Allergy Verified 05/12/25 08:42 Opioid HPI Opioid Management Most Recent Opioid Data: Ur Phencyclidine Scrn, (NEGATIVE) Negative 11/14/24, 22:50 Review of Systems ROS Narrative A ten point review of systems is negative except as noted above. [facility] Medical History (Updated 05/12/25 @ 10:26 by Morgan Franklin MD) Pierced eyebrow infection ?S01.139A - Puncture wound without foreign body of unspecified eyelid and periocular area, initial encounter (ICD-10) ?L08.9 - Local infection of the skin and subcutaneous tissue, unspecified (ICD-10) Impetigo ?L01.00 - Impetigo, unspecified (ICD-10) Mood disorder ?F39 - Unspecified mood [affective] disorder (ICD-10) Situational mixed anxiety and depressive disorder ?F43.23 - Adjustment disorder with mixed anxiety and depressed mood (ICD-10) Abdominal pain ?R10.9 - Unspecified abdominal pain (ICD-10) Low iron ?E61.1 - Iron deficiency (ICD-10) Anxiety ?F41.9 - Anxiety disorder, unspecified (ICD-10) Menorrhagia ?N92.0 - Excessive and frequent menstruation with regular cycle (ICD-10) Dysmenorrhea ?N94.6 - Dysmenorrhea, unspecified (ICD-10) Seasonal allergies ?J30.2 - Other seasonal allergic rhinitis (ICD-10) Family History (Updated 01/23/25 @ 09:58 by Lexi Alcaraz) Other Family history of Alzheimer's disease Family history of breast cancer Family history of cancer Family history of diabetes mellitus Family history of heart disease Social History (Updated 01/24/25 @ 07:28 by Skye Dunn) Within the past year, how often did you have a drink containing alcohol: monthly or less Do you use any of these nicotine containing products: vaping products Non-prescribed substance use: denies use 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 General: The patient appears well and in no apparent distress. Patient is resting comfortably on cart. Skin: Warm, dry, no pallor noted. There is no rash noted. Head: Normocephalic, atraumatic Eye: Normal conjunctiva, no drainage Ears, Nose, Mouth, and Throat: oral mucosa is moist. Nares patent. Cardiovascular: Regular Rate and Rhythm Respiratory: Patient is in no distress, no accessory muscle use, lungs are clear to auscultation, no wheezing, rales or rhonchi Back: non-tender GI: Soft and nontender Musculoskeletal: The patient has no evidence of calf tenderness, no pitting edema, symmetrical pulses noted bilaterally Neurological: A&O, normal speech Psychiatric: Cooperative Constitutional Vital Signs, click to edit/add: Last Vital Signs Temp 99.0 F 05/12/25 08:43 Pulse 68 05/12/25 08:43 Resp 16 05/12/25 08:43 BP 117/66 05/12/25 08:43 Pulse Ox 97 05/12/25 08:43 O2 Del Method Room Air 05/12/25 08:43 Course Vital Signs Vital signs: Vital Signs Temperature 99.0 F 05/12/25 08:43 Pulse Rate 68 05/12/25 08:43 Respiratory Rate 16 05/12/25 08:43 Blood Pressure 117/66 05/12/25 08:43 Pulse Oximetry 97 05/12/25 08:43 Oxygen Delivery Method Room Air 05/12/25 08:43 Temperature 99.0 F 05/12/25 08:43 Pulse Rate 68 05/12/25 08:43 Respiratory Rate 16 05/12/25 08:43 Blood Pressure 117/66 05/12/25 08:43 Pulse Oximetry 97 05/12/25 08:43 Oxygen Delivery Method Room Air 05/12/25 08:43 Medical Decision Making MDM Narrative Medical decision making narrative: Ultrasound shows IUP. Blood type is O+. She was reassured and discharged home. Treatment diagnosis and follow-up were discussed with the patient. Differential Diagnosis Differential Diagnosis: Miscarriage, threatened miscarriage, vaginal bleeding in Lab Data Lab results reviewed: Yes I reviewed the patient's lab results Labs: Lab Results 05/12/25 Range/Units 09:01 WBC 6.2 (4.0-11.0) 10^3/uL RBC 3.96 L (4.20-5.40) 10^6/uL Hgb 11.4 L (12.0-16.0) g/dL Hct 32.9 L (36.0-48.0) % MCV 83.1 (81.0-99.0) fL MCH 28.8 (26.7-34.0) pg MCHC 34.7 (29.9-35.2) g/dL RDW 13.2 (11.0-15.0) % Plt Count 191 (150-450) 10^3/uL MPV 10.2 (9.5-13.5) fL Neut % (Auto) 74.6 (43.0-75.0) % Lymph % (Auto) 18.3 L (20.5-60.0) % Stephens % (Auto) 5.7 (1.7-12.0) % Eos % (Auto) 0.8 L (0.9-7.0) % Baso % (Auto) 0.3 (0.2-2.0) % Neut # (Auto) 4.6 (1.4-6.5) 10^3/uL Lymph # (Auto) 1.1 L (1.2-3.8) 10^3/uL Stephens # (Auto) 0.4 (0.3-0.8) 10^3/uL Eos # (Auto) 0.1 (0.0-0.7) 10^3/uL Baso # (Auto) 0.0 (0.0-0.1) 10^3/uL Abs Immat Gran (auto) 0.02 (0.00-0.03) 10^3/uL Imm/Tot Granulo (auto) 0.3 (0.0-0.5) % Sodium 139 (136-145) mmol/L Potassium 3.4 L (3.5-5.1) mmol/L Chloride 106 (98-107) mmol/L Carbon Dioxide 22.2 (21.0-32.0) mmol/L Anion Gap 14.2 BUN 5.0 L (7.0-18.0) mg/dL Creatinine 0.42 L (0.55-1.02) mg/dL Est GFR ( Amer) >60 (>=60 mL/min/1.73m^2) Est GFR (Non-Af Amer) >60 (>=60 mL/min/1.73m^2) BUN/Creatinine Ratio 11.9 Glucose 83 (74-106) mg/dL Calcium 8.9 (8.5-10.1) mg/dL HCG, Quant 24632 mIU/mL Imaging Data Pelvic ultrasound: Radiologist's impression: ITS Impressions Ultrasound 05/12/25 09:04 IMPRESSION: Single live intrauterine with heart rate 144 beats per minutes Impression dictated by: Bertin Burger M.D. 05/12/2025 10:17 AM Dictation Location: [place] [address] Electronically authenticated by: [id number] Y Date: 05/12/2025 10:17 Discharge Plan Discharge Chief Complaint: OB/Uterine Contractions Clinical Impression: Vaginal bleeding during Patient Disposition: Home, Self-Care Time of Disposition Decision: 10:25 Condition: Good Mode of Transportation: Private Vehicle Prescriptions / Home Meds: No Action magnesium oxide 400 mg (241.3 mg magnesium) tablet 400 mg PO DAILY PNV no.95-ferrous fumarate-FA [] 28 mg iron- 800 mcg tablet 1 tab PO DAILY Print Language: Latvian Instructions: Non-Threatening First Trimester Vaginal Bleed (ED) Referrals: SANTINO CUEVA [Primary Care Provider, Family Practice] - 1 week
--- NOTE | 2025-05-12 09:04 | US_ITS ---
[place] [id number] Patient Name: VERN DUONG MRN: [id number] date: 2000 Sex: F Assigned Patient Location: ER Current Patient Location: ER Accession/Order Number: [id number] Exam Date: 05/12/2025 10:15 Report Date: 05/12/2025 10:17 At the request of: GEN MTZ MD Procedure: US OB <= 14 weeks fetus Obstetrical ultrasound INDICATION: Vaginal bleeding COMPARISON: 01/21/2025 FINDINGS: Within the uterus, single live intrauterine gestation in cephalic position. [place]-rump length is 6.8 cm. Amniotic volume subjectively normal. Placenta location anterior. heart rate 144 beats for minute. Cervical length 5.2 cm, closed. Gestational age 13 weeks 1 days. US/US OB <= 14 weeks fetus IMPRESSION: Single live intrauterine with heart rate 144 beats per minutes Impression dictated by: Bertin Burger M.D. 05/12/2025 10:17 AM Dictation Location: [facility] Electronically authenticated by: [id number] Y Date: 05/12/2025 10:17
[2025-05-12 09:08] LABS: Hematocrit 32.9 % (36.0-48.0); Hemoglobin 11.4 g/dL (12.0-16.0); Immature Granulocytes Abs Auto 0.02 10^3/uL (0.00-0.03); Immature Granulocytes Pct Auto 0.3 % (0.0-0.5); Lymphocytes Absolute Auto 1.1 10^3/uL (1.2-3.8); Mean Corpuscular HGB Conc 34.7 g/dL (29.9-35.2); Mean Corpuscular Hemoglobin 28.8 pg (26.7-34.0); Mean Corpuscular Volume 83.1 fL (81.0-99.0); Platelet Count 191 10^3/uL (150-450); Red Blood Count 3.96 10^6/uL (4.20-5.40); White Blood Count 6.2 10^3/uL (4.0-11.0)
[2025-05-12 09:47] LABS: Anion Gap 14.2; Blood Urea Nitrogen 5.0 mg/dL (7.0-18.0); Calcium 8.9 mg/dL (8.5-10.1); Carbon Dioxide 22.2 mmol/L (21.0-32.0); Chloride 106 mmol/L (98-107); Estimated GFR (African America >60 (>=60 mL/min/1.73m^2); Estimated GFR (Non-African Ame >60 (>=60 mL/min/1.73m^2); Glucose 83 mg/dL (74-106); Potassium 3.4 mmol/L (3.5-5.1); Sodium 139 mmol/L (136-145)
== END 2025-05-12 10:36 | disposition home or self-care (01) ==
PROVIDERS: Emergency Provider Emergency Medicine; PCP Nurse Practitioner Family
DX: O26.892 Other specified pregnancy related conditions, second trimester (principal); Z3A.14 14 weeks gestation of pregnancy; O46.8X2 Other antepartum hemorrhage, second trimester
CPT/HCPCS: 36415; 76801; 80048; 84702; 85025; 99284

== ENCOUNTER 2025-06-09 14:33 | Outpatient (REF) | payer OTHER, SELFPAY ==
--- OUTSIDE RECORDS SUMMARY | 2024-10-08 04:22 | XMS_ITS ---
Author Organization [facility] in [place] Address [address] [place] [address] Care Team Providers Care Battery Tester Name Role Phone Tata Turner Primary Care Provider REASON FOR VISIT med f/u Encounters Encounter Location Date Provider Diagnosis [facility] [address] [place] [address] 10/08/2024 Tata Turner Plan Of Treatment No Information Progress Notes * Eva DUONG SDOB:[birth year] (24 yo F)Acc No.[id number]:10/08/2024 Patient: Eva MARTIN S :2000 A ge:24 Y S ex:Female Address:[address] [place], [address] * true * Date: Generated for Printi ng/Faxing/eTransmitting on: 0 06/09/2025 02:36 PM EDT
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
--- OUTSIDE RECORDS SUMMARY | 2024-11-19 04:30 | XMS_ITS ---
Author Organization The [facility] in [place] Address [address] [place] [address] Care Team Providers Care Community Organization Aide Name Role Phone Tata Turner Primary Care Provider Allergies No Known Allergies REASON FOR VISIT [...] 11/19/2024 Encounters Encounter Location Date Provider Diagnosis [facility] [address] [place] [address] 11/19/2024 Tata Turner Depression F32.9 Assessments Encounter Date Diagnosis (ICD Code) Assessment Notes Treatment Notes Treatment Clinical Notes Section Notes 11/19/2024 Depression (ICD-10 - F32.9) lately more depression than anxiety continue with counseling - starts tomorrow continue with meds, consider fu with psych at [facility] regarding meds discussed healthy lifestyle habits to support good mental health Plan Of Treatment Treatment Notes Assessment Notes Depression lately more depression than anxiety continue with counseling - starts tomorrow continue with meds, consider fu with psych at [facility] regarding meds discussed healthy lifestyle habits to support good mental health Next Appt Details Follow Up: prn, Reason: Progress Notes * Eva DUONG SDOB:[birth year] (24 yo F)Acc No.[id number]:11/19/2024 Progress Note Patient: Eva MARTIN Provider: Sugar Turner ([facility]), BROADBAND TECHNICIAN :2000 A ge:24 Y S ex:Female Date:11/19/2024 Address:[address] [place] [address], [facility], [id number] Check In:08:34 AM ESTCheck O ut:08:49 AM EST Subjective: * Chief Complaints: * 1 . Wants to discuss meds, she stopped her medications for around 1 month but started taking them again monday. * HPI: G eneral: counseling starting tomorrow thru [facility] living with daughter and grandma working [employer] no SI today restarted meds on Monday [...] * Treatment: * Preventive Medicine: Screenings/Counseling: B [place] ACTION PLAN Above Normal BMI Follow-up D ietary management education, guidance, and counseling T OBACCO ACTION PLAN Patient counselled on the dangers of tobacco use and urged to quit. . * Follow Up: p rn * * Electronically signed by Peace Turner NP, HAND ORNAMENT MAKER.BROADBAND [id number] on 11/21/2024 at 11:59 AM EST Sign off status: Completed Visit Status: C HK (Check Out) true * Provider: Sugar Turner ([facility]), BROADBAND TECHNICIAN Date: 0 11/19/2024 Generated for Jolie payne/Kacie/eTransmitting on: 0 06/09/2025 02:36 PM EDT History [...]
--- OUTSIDE RECORDS SUMMARY | 2024-12-06 09:53 | XMS_ITS ---
Author Organization The [facility] in [place] Address [address] [place] [address] Care Team Providers Care Rotary Soil Stabilizer Name Role Phone Tata Turner Primary Care Provider REASON FOR VISIT Refills Medications Medication SIG (Take, Route, Fr equency, Duration) Notes Start Date End Date Status Effexor XR 75 MG 1 capsule with food Orally Once a day for 30 days 06/20/2024 Active busPIRone HCl 10 MG 1 tablet Orally Twic e a day for 30 days 09/10/2024 Active Encounters Encounter Location Date Provider Diagnosis [address] [address] 12/06/2024 Tata Turner Anxiety and depression F41.9 and Anxiety F41.9 Assessments Encounter Date Diagnosis (ICD Code) Assessment Notes Treatment Notes Treatment Clinical Notes Section Notes 12/06/2024 Anxiety and depression (ICD-10 - F41.9) 12/06/2024 Anxiety (ICD-10 - F41.9) Plan Of Treatment Medication Medication Name Sig Start Date Stop Date Notes Effexor XR 75 MG 1 capsule with food Orally Once a day for 30 days 06/20/2024 busPIRone HCl 10 MG 1 tablet Orally Twic e a day for 30 days 09/10/2024 Progress Notes * Eva DUONG SDOB:[birth year] (24 yo F)Acc No.[id number]:12/06/2024 Patient: Eva MARTIN :2000 A ge:24 Y S ex:Female Address:[address], [place], [address] * Refills Refill busPIRone HCl Tablet, 10 MG, Orally, 60 Tablet, 1 tablet, Twice a day, 30 days, Refills=5 Refill Effexor XR Capsule Extended Release 24 Hour, 75 MG, Orally, 30, 1 capsule with food, Once a day, 30 days, Refills=5 * true * Date: Generated for Jolie payne/Kacie/Benitting on: 0 06/09/2025 02:36 PM EDT
--- OUTSIDE RECORDS SUMMARY | 2025-01-21 05:27 | XMS_ITS ---
Author Organization [facility] in [place] Address [address] [place] [address] Care Team Providers Care Shank Boner Name Role Phone Tata Turner Primary Care Provider REASON FOR VISIT f/u with patient Encounters Encounter Location Date Provider Diagnosis [facility] [address] [place] [address] 01/21/2025 Tata Turner Plan Of Treatment No Information Progress Notes * Eva DUONG SDOB:[birth year] (24 yo F)Acc No.[id number]:01/21/2025 Patient: Eva MARTIN S :2000 A ge:24 Y S ex:Female Address:[address] [place], [address] * true * Date: Generated for Printi ng/Faxing/eTransmitting on: 0 06/09/2025 10:45 AM EDT
--- OUTSIDE RECORDS SUMMARY | 2025-06-09 10:40 | XMS_ITS | Encounter Summary ---
Author Organization [facility] Address [address] [facility] [place] [address] Care Team Providers Care Data Steward Name Role Phone Unavailable Primary Care Provider Unavailabl e Reason for Visit * Reason Comments Routine Visit Well Women Visit STI Screening Encounter Details Date Type Department Care Team (Latest Contact Info) Description 06/09/2025 10:40 AM EDT Routine [facility] [address] [address] Lexi Alcaraz, SWITCH REPAIRER [address] [facility] [place] [address] 17 weeks gestation of ([facility]); Second trimester ([facility]); Screening, , for anatomic survey ([facility]); Exposure to STD; Vaginal discharge; Well woman exam with routine gynecological exam Social History Tobacco Use Types Packs/Day Years [...] Sign Reading Time Taken Comments Blood Pressure 118/68 06/09/2025 10:59 AM EDT Pulse - - Temperature - - Respiratory Rate - - Oxygen Saturation - - Inhaled Oxygen Concentration - - Weight 75.7 kg (166 lb 12.8 oz) 025 10:59 AM EDT Height - - Body Mass Index - - documented in this encounter Progress Notes * Ariella Wells LPN - 06/09/2025 10:40 AM EDT Reason for Appointment: Patient ID: Eva Granados is a 24 y.o. female who presents for Routine Visit, Well Women Visit, and STI Screening Patient presents today for Annual Exam. and Return OB appointment. MEDICATIONS Current Outpatient Medications Medication Instructions acetaminophen-codeine (Tylenol w/ Codeine #3) 300-30 MG tablet 1 tablet, Every 4 hours PRN magnesium oxide (MAG-OX) 400 mg, Oral, Daily Vit-Fe Fumarate-FA ( Vitamins) 28-0.8 MG tablet 1 tablet, Oral, Daily ALLERGIES Allergies Allergen Reactions Other PROBLEMS Active Ambulatory Problems Diagnosis Date Noted No Active Ambulatory Problems Resolved Ambulatory Problems Diagnosis Date Noted No Resolved Ambulatory Problems Past Medical History: Diagnosis Date Anemia H/O one miscarriage HISTORY PAST MEDICAL HISTORY SOCIAL HISTORY Past Medical History: Diagnosis Date Anemia H/O one miscarriage Social History Tobacco Use Smoking status: Not on file Smokeless tobacco: Not on file Vaping Use Vaping status: Some Days Substances: Nicotine Substance Use Topics Alcohol use: Not on file Drug use: Not on file FAMILY HISTORY No family history on file. SURGICAL HISTORY History reviewed. No pertinent surgical history. REVIEW OF SYSTEMS Review of Systems: Review of Systems Constitutional: Negative. HENT: Negative. Eyes: Negative. Respiratory: Negative. Cardiovascular: Negative. Gastrointestinal: Negative. Genitourinary: Negative. Musculoskeletal: Negative. Skin: Negative. Neurological: Negative. All other systems reviewed and are negative. Hematological: Negative. Endocrine: Negative. Allergic/Immunologic: Negative. OBJECTIVE Objective: Physical Exam Constitutional: Appearance: Normal appearance. She is well-developed. Genitourinary: Vulva normal. Breasts: Breasts are soft. Right: Normal. Left: Normal. Cardiovascular: Rate and Rhythm: Normal rate and regular rhythm. Pulmonary: Effort: Pulmonary effort is normal. Breath sounds: Normal breath sounds. Abdominal: General: Bowel sounds are normal. There is no distension. Palpations: Abdomen is soft. Tenderness: There is no abdominal tenderness. There is no guarding or rebound. Musculoskeletal: General: No swelling. Normal range of motion. Right lower leg: No edema. Left lower leg: No edema. Neurological: Mental Status: She is alert and oriented to person, place, and time. Skin: General: Skin is warm and dry. Psychiatric: Mood and Affect: Mood normal. Behavior: Behavior normal. Vitals and nursing note reviewed. Exam conducted with a color printer operator present. Vitals: There is no height or weight on file to calculate BMI. BP: 118/68 Patient's last menstrual period was 04/14/2025. ASSESSMENT & PLAN ICD-10-CM 1. 17 weeks gestation of ([facility]) Z3A.17 POCT urinalysis dipstick manually resulted Alpha fetoprotein, maternal Alpha fetoprotein, maternal 2. Second trimester ([facility]) Z34.92 POCT urinalysis dipstick manually resulted Alpha fetoprotein, maternal Alpha fetoprotein, maternal 3. Screening, , for anatomic survey ([facility]) Z36.89 US OB 14+ weeks anatomy scan US OB 14+ weeks anatomy scan 4. Exposure to STD Z20.2 CHLAMYDIA TRACHOMATIS (GENITO/STI) Neisseria gonorrhea DNA probe, direct 5. Vaginal discharge N89.8 SURESWAB(R) ADVANCED VAGINITIS PLUS, TMA 6. Well woman exam with routine gynecological exam Z01.419 Pap Smear Return OB/Annual Exam: Patient presents today for an annual exam/routine obstetrics appointment. Patient is currently 17w1d . Patient is doing well and states she has no complaints. Pap/cultures was obtained without difficulty and patient was given [facility] order to have obtained. Orders Placed This Encounter Procedures US OB 14+ weeks anatomy scan CHLAMYDIA TRACHOMATIS (GENITO/STI) Neisseria gonorrhea DNA probe, direct Alpha fetoprotein, maternal POCT urinalysis dipstick manually resulted Follow Up: Patient is to return to our office in 4 weeks for routine OB appointment Documented by Ariella Wells LPN on behalf of: Lexi Alcaraz NP documented in this encounter Plan of Treatment Upcoming Encounters Date Type Department Care Team (Late st Contact Info) Description 07/07/2025 1:00 PM EDT [place] [address] 07/07/2025 2:00 [place] [address] Lexi Alcaraz, SWITCH REPAIRER [address] [place] [address] Scheduled Orders Name Type Priority Associated Diagnoses Orde r Schedule SURESWAB(R) ADVANCED VAGINITIS PLUS, TMA Pathology and Cytology Routine Vaginal discharge Ordered: 06/09/2025 CHLAMYDIA TRACHOMATIS (GENITO/STI) Lab Routine Exposure to STD Ordered: 06/09/2025 Neisseria gonorrhea DNA probe, direct Lab Routine Exposure to STD Ordered: 06/09/2025 Pap Smear Pathology and Cytology Routine Well woman exam with routine gynecological exam Ordered: 06/09/2025 US OB 14+ weeks anatomy scan Imaging Routine Screening, , for anatomic survey ([facility]) Expected: 06/09/2025, Expires: 09/08/2025 Alpha fetoprotein, maternal Lab Routine 17 weeks gestation of ([facility]) Second trimester ([facility]) Expected: 06/09/2025 (Approximate), Expires: 07/09/2025 documented as of this encounter Procedures Procedure Name Priority Date/Time Associated Diagnosis Comments POCT URINALYSIS DIPSTICK Routine 06/09/2025 11:04 AM EDT 17 weeks gestation of ([facility]) Second trimester ([facility]) documented in this encounter Results * POCT urinalysis dipstick manually resulted (06/09/2025 11:04 AM EDT) Color, UA Yellow Clarity, UA Clear Glucose, UA Negative Negative - 1999(110) ++++ mg/dL Bilirubin, UA Negative Negative - 4(70) +++ mg/dL Ketones, UA Negative Negative - 160(16) ++++ mg/dL Spec Grav, UA 1.010 1 - 1.03 Blood, UA Negative Negative - 50 Obey/mcL pH, UA 8.0 5 - 9 Protein, UA Negative Negative - 1999(20) ++++ mg/dL Urobilinogen, UA 1.0 0.2 - 12 mg/dL Leukocytes, UA Negative Negative - 500+++ Hai/mcL Nitrite, UA Negative Negative - Positive Urine 06/09/2025 11:0 4 AM EDT Lexi Alcaraz NP POINT OF CARE TEST ENTER/EDIT ORDERABLES Final Result documented in this encounter Visit Diagnoses Diagnosis 17 weeks gestation of ([facility]) Second trimester ([facility]) state, incidental Screening, , for anatomic survey ([facility]) Encounter for anatomic survey Exposure to STD Vaginal discharge Leukorrhea, not specified as infective Well woman exam with routine gynecological exam Routine gynecological examination documented in this encounter
--- OUTSIDE RECORDS SUMMARY | 2025-06-09 14:36 | XMS_ITS | Clinical Summary ---
Author Organization [facility] Address [address] [place] [address] Care Team Providers Care Surgeon/President Name Role Phone Unavailable Primary Care Provider Unavailabl e Allergies Active Allergy Reactions Criticality Noted Date Comments Other 08/11/2016 Medications acetaminophen-co deine (Tylenol w/ Codeine #3) 300-30 MG tablet Take 1 tablet by mouth every 4 (four) hours if needed for moderate pain 5 Active Vit-Fe Fumarate-FA ( Vitamins) 28-0.8 MG tabletIndication s:Positive urine test ([facility]) Take 1 tablet by mouth Daily 30 tablet 11 5 05/08/20 26 Active magnesium oxide (Mag-Ox) 400 MG tabletIndication s:Nonintractable headache, unspecified chronicity pattern, unspecified headache type Take 1 tablet (400 mg) by mouth Daily 30 tablet 11 5 06/09/20 25 Active Encounters Date Type Department Care Team Description 06/09/2025 10:40 AM EDT Routine YANELI HATHAWAY [address] [place] [address] [place] [address] Lexi Alcaraz NP 17 weeks gestation of ([facility]); Second trimester ([facility]); Screening, , for anatomic survey ([facility]); Exposure to STD; Vaginal discharge; Well woman exam with routine gynecological exam 06/09/2025 Bamboo flowsheet [facility] [address] [facility] [place] [address] Lexi Alcaraz NP 05/15/2025 [place] [address] Robi Robertson DO 05/08/2025 1:00 [place] [address] GA: 12w4d 05/08/2025 12:30 PM EDT [place] [id number] Missed menses; Positive urine test ([facility]) 05/08/20[place] [address] Robi Robertson DO 05/08/2025 Clinisync Result Encounter [facility] External Department Unsolicited Robi Robertson DO 05/08/2025 [place] [address] Robi Robertson DO from Last 3 Months [...] PM EDT [place] [address] 07/07/2025 2:00 PM EDT Routine [facility] [address] [place] [address] Lexi Alcaraz, PAD MACHINE OPERATOR [address] [facility] [place] [address] Procedures Procedure Name Priority Date/Time Associated Diagnosis Comments POCT URINALYSIS DIPSTICK Routine 06/09/2025 11:04 AM EDT 17 weeks gestation of ([facility]) Second trimester ([facility]) HBSAG SCREEN Routine 05/08/2025 3:05 PM EDT [...] PM EDT Missed menses Positive urine test ([facility]) from Last 3 Months Results * POCT urinalysis dipstick manually resulted (06/09/2025 11:04 AM EDT) Only the most recent of2 resultswithin the time period is included. Color, UA Yellow Clarity, UA Clear Glucose, [...] OF CARE TEST ENTER/EDIT ORDERABLES Final Result * BOX TEST (05/08/2025 3:05 PM EDT) BOX TEST SENT OUT [facility] BOX1 [facility] BOX2 05/08/25 [facility] 05/08/2025 3:05 PM EDT 05/08/2025 3:22 PM EDT Narrative CLINISYNC - 05/08/2025 3:30 PM EDT us Robi Robertson DO LAB BLOOD ORDERABLES Final [facility]ul t [facility] * HBSAG SCREEN (05/08/2025 3:05 PM EDT) HBSAG SCREEN Negative Negative [facility] Comment: Performed at: - [address] [id number] Well Reactivator Operator: Traiq Simpson PhD, Phone: [phone] 05/08/2025 3:05 PM EDT 05/08/2025 3:22 PM EDT Narrative CL[facility]ISY[facility] - 05/09/2025 12:08 PM EDT Robi Marcelo DO LAB BLOOD ORDERABLES Final Resul t Performing Organization Address [facility] Co de Phone Number [facility] * RAPID PLASMA REAGIN, QUANT (05/08/2025 3:05 PM EDT) Pathologist [facility] RAPID PLASMA REAGIN, QUANT Non Reactive NonRea<1: 1 titer [facility] Comment: Please Note: This test does not meet current guidelines for screening and diagnosis of syphilis. This test is intended for following treatment response in patients being treated for syphilis infection. To screen for syphilis infection, a reflex cascade that includes both RPR and a treponema-specific assay should be utilized, such as Treponema pallidum (Syphilis) Screening [place] (604981) or Rapid Plasma Reagin (RPR) Test With Reflex to Quantitative RPR and Confirmatory Treponema pallidum Antibodies (186493). Performed at: [address] [id number] Well Reactivator Operator: Tariq Simpson PhD, Phone: [phone] 05/08/2025 3:05 PM EDT 05/08/2025 3:22 PM EDT Narrative [facility] - 05/09/2025 12:08 PM EDT [employer] LAB BLOOD ORDERABLES Final Resul t Performing Organization Address [facility]/ZIP Co de Phone Number [facility] * HIV AB/P24 AG WITH REFLEX (05/08/2025 3:05 PM EDT) [facility] HIV AB/P24 AG SCREEN Non Reactive Non Reactive [facility] Comment: HIV-1/HIV-2 antibodies and HIV-1 p24 antigen were NOT detected. There is no laboratory evidence of HIV infection. HIV Negative Performed at: [address] [id number] Well Reactivator Operator: Tariq Simpson PhD, Phone: [phone] 05/08/2025 3:05 PM EDT 05/08/2025 3:22 PM EDT Narrative CLINISYNC - 05/09/2025 5:07 AM EDT us Robi Marcelo DO LAB BLOOD ORDERABLES Final Resul t Performing Organization Address [facility] Co de Phone Number [facility] * HCV ANTIBODY RFX TO QUANT PCR (05/08/2025 3:05 PM EDT) Pathologist [facility] HCV AB Non Reactive Non Reactive [facility] INTERPRETATION: Comment . [facility] Comment: Not infected with HCV unless early or acute infection is suspected (which may be delayed in an immunocompromised individual), or other evidence exists to indicate HCV infection. Performed at: - [facility] [id number] Well Reactivator Operator: Tariq Simpson PhD, Phone: [phone] 05/08/2025 3:05 PM EDT 05/08/2025 3:22 PM EDT Narrative CLINISYNC - 05/09/2025 7:07 AM EDT us Robi Marcelo DO LAB BLOOD ORDERABLES Final Resul t Performing Organization Address [facility] de Phone Number [facility] * MLR HEMOGLOBIN A1C (05/08/2025 3:05 PM EDT) Pathologist [facility] GLYCOHEMOGLOBIN A1C 4.7 4.5 - 6.2 % [facility] Comment: ADA RECOMMENDED LIMIT 4.0 - 6.0 ADA THERAPEUTIC TARGET < 7.0 ACTION SUGGESTED > 7.0 ESTIMATED AVERAGE GLUCOSE 88 mg/dL [facility] 05/08/2025 3:05 PM EDT 05/08/2025 3:22 PM EDT Narrative CLINISYNC - 05/08/2025 3:50 PM EDT us Robi Marcelo DO CLINISYNC Final Result Performing Organization Address [facility]/ZIP Co de Phone Number [facility] * ALL TYPE AND SCREEN (05/08/2025 3:05 PM EDT) Pathologist [facility] BLOOD TYPE O Positive [facility] ANTIBODY SCREEN NEGATIVE [facility] 05/08/2025 3:05 PM EDT 05/08/2025 3:22 PM EDT Narrative [facility] - 05/08/2025 5:14 PM EDT [facility] , Robi Marcelo DO CLINISYNC Final Result Performing Organization Address [facility] Co de Phone Number [facility] * ALL RUBELLA IGG AB (05/08/2025 3:05 PM EDT) Pathologist [facility] RUBELLA ANTIBODIES, IGG 1.37 Immune >0.99 index [facility] Comment: Non-immune <0.90 Equivocal 0.90 - 0.99 Immune >0.99 Performed at: [facility] [address] [id number] Well Reactivator Operator: Tariq Simpson PhD, Phone: [phone] 05/08/2025 3:05 PM EDT 05/08/2025 3:22 PM EDT [facility] - 05/09/2025 7:07 AM EDT [facility] Marcelo DO CLINISYNC Final Result Performing Organization Address [facility] Co de Phone Number [facility] * (ABNORMAL) ALL CBC WITH AUTO DIFF (05/08/2025 3:05 PM EDT) Pathologist [facility] WBC 8.4 4.0 - 11.0 10 3/uL [...] Narrative CLINISYNC - 05/08/2025 3:41 PM EDT Robi Marcelo DO CLINISYNC Final Result [facility] * (ABNORMAL) POCT , urine manually resulted (05/08/2025 1:02 PM EDT) Preg Test, Ur Positive Negative Urine 05/08/2025 1:02 PM EDT Robi Marcelo DO POINT OF CARE TEST [...] SIGNED BY: Wolf Riggins MD us Robi Robertson DO IMG OB US PROCEDURES Final Resul t from Last 3 Months Insurance [employer]
--- OUTSIDE RECORDS SUMMARY | 2025-06-09 14:36 | XMS_ITS | Encounter Summary ---
Author Organization [facility] Address [address] [place] [address] Care Team Providers Care Pizzamaker Name Role Phone Unavailable Primary Care Provider Unavailabl e Encounter Details Date Type Department Care Team (Late Contact Info) Description 05/08/2025 Abstract YANELI HATHAWAY [address] [place] [address] Robi Robertson DO [address] [place] [address] Social History Tobacco Use Types Packs/Day Years [...] Description 07/07/2025 1:00 PM EDT Ancillary Procedure YANELI HATHAWAY [address] [place] [address] 07/07/2025 2:00 PM EDT Routine YANELI HATHAWAY [address] [place] [address] Lexi Alcaraz, WASHER MACHINE [address] [place] [address] documented as of this encounter Visit Diagnoses Not on filedocumented in this encounter
--- OUTSIDE RECORDS SUMMARY | 2025-06-09 14:36 | XMS_ITS | Clinical Summary ---
Author Organization [employer] Address [id number] [address] [place] [address] Care Team Providers Care Seater Assembler Name Role Phone Jay Jay Horton Primary [...] 06/02/2025 Medical Devices Not on file Insurance [facility] MEDICAID [facility] MEDICAID Care Teams Seater Assembler Relationship Specialty Start Date End Date Pediatrics, Jay Jay Hu [address] [facility] [place] [id number] PCP - General Pediatrics 11/21/18
--- OUTSIDE RECORDS SUMMARY | 2025-06-09 14:36 | XMS_ITS | Encounter Summary ---
Author Organization [facility] Address [address] [place] [address] Care Team Providers Care Rn L And D Name Role Phone Unavailable Primary Care Provider Unavailabl e Encounter Details Date Type Department Care Team (Late Contact Info) Description 05/15/2025 Abstract YANELI HATHAWAY [address] [place] [address] Robi Robertson DO [address] [facility] [place] [address] Social History Tobacco Use Types Packs/Day [...] Ancillary Procedure YANELI HATHAWAY [address] [place] [address] 07/07/2025 2:00 PM EDT Routine YANELI HATHAWAY [address] [place] [address] Lexi Alcaraz, ATHLETIC TEAM PHYSICIAN [address] [place] [address] documented as of this encounter Visit Diagnoses Not on filedocumented in this encounter
--- OUTSIDE RECORDS SUMMARY | 2025-06-09 14:36 | XMS_ITS ---
Author Organization [facility] Source Produ ction (ClinicalSummary Clone) Address Unknown Care Team Providers Care Regional Sales Representative Name Role Phone Unavailable Primary Care Physician Unavailab le Results * [UNITY] ANEUPLOIDY NIPT Performed by: [facility] Component Value Range Date Fraction 9.2% 05/14/2025 11 :45 pm UTC Rh(D) NIPT RhD DETECTED 05/14/2025 11:4 5 pm UTC Sex Chromosome Aneuploidy NOT DETECTED 11:45 pm UTC Monosomy X LOW RISK <1 in 10,000 2024 11:45 pm UTC Trisomy 13 LOW RISK <1 in 10,000 2024 11:45 pm UTC Trisomy 18 LOW RISK <1 in 10,000 2024 11:45 pm UTC Trisomy 21 LOW RISK <1 in 10,000 2024 11:45 pm UTC Sex MALE 05/14/2025 11:4 5 pm UTC Gestation BERKOWITZ 05/14/20 11:45 pm UTC For detailed report, see PDF See PDF 05/14/2025 11:45 pm UTC 05/14/2025 11:4 5 pm UTC Social History Observation Value Start Date End Date
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
--- OUTSIDE RECORDS SUMMARY | 2025-06-09 14:37 | XMS_ITS | Encounter Summary ---
Author Organization [facility] Address [address] [place] [address] Care Team Providers Care Roads Superintendent Name Role Phone Unavailable Primary Care Provider Unavailabl e Encounter Details Date Type Department Care Team (Late st Contact Info) Description 06/09/2025 Bamboo flowsheet [facility] [address] [place] [address] Lexi Alcaraz, BICYCLE I ASSEMBLER [address] [place] [address] Social History Tobacco Use Types Packs/Day Years [...] Description 07/07/2025 1:00 PM EDT Ancillary Procedure [facility] [address] [place] [address] 07/07/2025 2:00 PM EDT Routine [facility] [address] [place] [address] Lexi Alcaraz, BICYCLE I ASSEMBLER [address] [place] [address] documented as of this encounter Visit Diagnoses Not on filedocumented in this encounter
--- OUTSIDE RECORDS SUMMARY | 2025-06-09 17:12 | XMS_ITS | CCD ---
Author Organization [facility] Care Team Providers Care Soccer Ball Assembler Name Role Phone Pcp, None Primary Care Provider UnavailBRENDAN Lerma Attending Unavailable BRENDAN PEREZ Referring Unavailable PCP, NONE Primary Care Unavailable BEAU BELLE Attending Unavailable BEAU BELLE Referring Unavailable PCP, NONE Primary Care Unavailable PCP, NONE Primary Care Unavailable CONCHITA CARRION Attending Unavailable CONCHITA CARRION Admitting Unavailable BEAU BELLE Attending Unavailable BEAU BELLE Referring Unavailable PCP, NONE Primary Care Unavailable BEAU BELLE Admitting Unavailable Unavailable Primary Care Provider Unavailvik e NON STAFF Primary Care Provider UnavailOctavio Lion MD Attending Provider [phone] Zoila Manzo DO Attending Provider [phone] Zoila Manzo Attending Unavailable Zoila Manzo Admitting Unavailable Octavio Martinez Attending Unavailab Octavio Alexandra Admitting Unavailab le NON STAFF Primary Care Unavailable Allergies Allergy Classification Reported Allergen(s) Allergy Type Date of Onset Reaction(s) Facility (5 sources) Other Propensity to adverse reactions 6 [facility] Medications Current Medications Medication Drug Class(es) Dates Sig (Normalized) Sig (Original) acetaminophen 500 mg oral tablet (7 sources) Start: 03-24-2021 take 2 tablets by mouth every six hours as needed acetaminophen (TYLENOL) 500 MG tablet Take 2 tablets by mouth every 6 hours as needed. 30 tablet 0 03/24/2021 Active Start: 03-22-2021 acetaminophen (TYLENOL) tablet 1,000 mg acetaminophen 300 mg / codeine phosphate 30 mg oral tablet (5 sources) Opioid Agonist Start: 02-12-2025 take 1 tablet by mouth every four hours as needed for pain acetaminophen-codeine (Tylenol w/ Codeine #3) 300-30 MG tablet Take 1 tablet by mouth every 4 (four) hours if needed for moderate pain 02/12/2025 Active acetaminophen 325 mg / HYDROcodone bitartrate 5 [...] oral solution (3 sources) alpha-Adrenergic Agonist, Uncompetitive O-llnmbm-A-aspart ate Receptor Antagonist, Sigma-1 Agonist Start: 02-04-2022 [...] Magnesium Hydroxide (MOM) suspension (CONC) 10 mL magnesium oxide 400 mg oral tablet (4 sources) Start: 05-08-2025 End: 06-09-2025 take 1 tablet by mouth once daily magnesium oxide (Mag-Ox) 400 MG tablet Indications: Nonintractable headache, unspecified chronicity pattern, unspecified headache type Take 1 tablet (400 mg) by mouth Daily 30 tablet 11 05/08/2025 06/09/2025 Active naproxen 500 mg oral tablet (2 sources) [...] mouth daily. 30 tablet 0 11/19/2020 Active Vit-Fe Fumarate-FA ( Vitamins) 28-0.8 MG tablet (5 sources) Start: 05-08-2025 End: 05-08-2026 take 1 tablet by mouth once daily Vit-Fe Fumarate-FA ( Vitamins) 28-0.8 MG tablet Indications: Positive urine test ([facility]) Take 1 tablet by mouth Daily 30 tablet 11 05/08/2025 05/08/2026 Active simethicone 80 mg chewable tablet (1 [...] Active Problems Problem Classification Problem Date Documented Date Episodic/Chronic Disorders of teeth and jaw (1 source) Toothache; Translations: [Pain, dental] Episodic Headache; including migraine (1 source) Headache; Translations: [Nonintractable headache, unspecified chronicity pattern, unspecified headache type] 05-08-2025 Episodic Immunizations and screening for infectious disease (3 sources) Encounter for screening for infections with a predominantly sexual mode of transmission; Translations: [Exposure to sexually transmissible disorder] Onset: 06-14-2022 06-09-2025 Episodic Menstrual disorders (1 source) Missed period; Translations: [Irregular menstruation, unspecified] 05-07-2025 Chronic Nonmalignant breast conditions (1 source) Mastodynia; Translations: [Mastodynia] Episodic Other circulatory disease (1 source) Elevated blood pressure; Translations: [Elevated blood pressure reading] Episodic Other female genital disorders (2 sources) Vaginal discharge; Translations: [Other specified noninflammatory disorders of vagina] 06-09-2025 Episodic Other and delivery including normal (20 sources) Normal ; Translations: [Encounter for supervision of normal , unspecified, unspecified trimester] Onset: 11-26-2020 Resolved: 05-12-2021 11-26-2020 Episodic Other screening for suspected conditions (not mental disorders or infectious disease) (2 sources) Patient encounter status; Translations: [Encounter for other specified screening] 06-09-2025 Episodic Other skin disorders (1 source) Facial [...] Translations: [36 weeks gestation of ] Episodic Residual codes; unclassified (2 sources) Gestation period, 17 weeks; Translations: [17 weeks gestation of ] 06-09-2025 Episodic Substance-related disorders (1 source) Nicotine dependence, other tobacco product, uncomplicated; Translations: [Nicotine dependence, other tobacco product, uncomplicated] Onset: 02-07-2023 Chronic Past or Other Problems Problem Classification Problem Date Documented Date Episodic/Chronic Other complications of (17 sources) Late entry into care; Translations: [Supervision of with insufficient care, second trimester] Onset: 11-26-2020 Resolved: 05-12-2021 11-26-2020 Episodic Other complications of (15 sources) Chlamydia trachomatis infection in ; Translations: [Other infections with a predominantly sexual mode of transmission complicating , second trimester] Onset: 12-21-2020 12-21-2020 Episodic Results Test Name Value Interpretation Reference Range Facil ity Urinalysis macro (dipstick) panel (U)on 06-09-2025 Bilirubin, UA Negative Negative - 4(70) +++ mg/dL [facility] Blood, UA Negative Negative - 50 Obey/mcL [facility] Clarity, UA Clear [facility] Color, UA Yellow [facility] Glucose, UA Negative Negative - 2000(110) ++++ mg/dL [facility] Interpretation and review of laboratory results Normal [facility] Ketones, UA Negative Negative - 160(16) ++++ mg/dL [facility] Leukocytes, UA Negative Negative - 500+++ Hai/mcL [facility] Nitrite, UA Negative Negative - Positive [facility] pH, UA 8 5 - 9 [facility] Protein, UA Negative Negative - 2000(20) ++++ mg/dL [facility] Spec Grav, UA 1.01 1 - 1.03 [facility] Urobilinogen, UA 1.0 0.2 - 12 mg/dL [facility] BOX TESTon 05-08-2025 BOX TEST SENT OUT [facility] BOX1 [employer] [facility] BOX2 05/08/25 [facility] HCG ( test) Ql (U)o n 05-08-2025 Interpretation and review of laboratory results Abnormal [facility] Preg Test, Ur Positive Negative [facility] US OB TRANSVAGINALon 025 US OB TRANSVAGINAL FINDINGS: A single intrauterine gestational sac is [...] mass present. Cervix closed, 7.3 cm length. IMPRESSION: Findings consistent with a live intrauterine gestation, current sonographic age of 12 weeks and 4 days resulting in an estimated date of delivery of November 16, 2025. TRANSCRIBED BY: ELECTRONICALLY SIGNED BY: Wolf Riggins MD Normal Not Available Comment on above: Order Comment: US OB TRANSVAGINAL No LMP recorded. Urinalysis macro (dipstick) panel (U)on 05-08-2025 Bilirubin, UA Negative Negative - 4(70) +++ mg/dL [facility] Blood, UA Positive Negative - 50 Obey/mcL [facility] Clarity, UA Clear [facility] Color, UA Miriam [facility] Glucose, UA Negative Negative - 2000(110) ++++ mg/dL [facility] Interpretation and review of laboratory results Abnormal [facility] Ketones, UA Negative Negative - 160(16) ++++ mg/dL [facility] Leukocytes, UA Negative Negative - 500+++ Hai/mcL [facility] Nitrite, UA Negative Negative - Positive [facility] pH, UA 6 5 - 9 [facility] Protein, UA Negative Negative - 2000(20) ++++ mg/dL [facility] Spec Grav, UA 1.025 1 - 1.03 [facility] Urobilinogen, UA 1.0 0.2 - 12 mg/dL [facility] ALL CBC WITH AUTO DIFFon BASOPHILS ABSOLUTE AUTO 0 [facility] Basophils/100 WBC (Bld) 0.4 % 0.2 - 2.0 % [facility] Eosinophils/100 WBC (Bld) 1.5 % 0.9 - 7.0 % [facility] Erythrocyte distribution width (RBC) [Ratio] 12.9 % 11.0 - 15.0 % [facility] Hematocrit (Bld) [Volume fraction] 33.3 % Low 36.0 - 48.0 % [facility] Hemoglobin (Bld) [Mass/Vol] 11.4 g/dL Low 12.0 - 16.0 g/dL [facility] IMMATURE GRANULOCYTES ABS AUTO 0.02 [facility] Immature granulocytes/100 WBC (Bld) 0.4 % 0.0 - 0.5 % [facility] Interpretation and review of laboratory results Abnormal [facility] LYMPHOCYTES ABSOLUTE AUTO 1.7 [facility] Lymphocytes/100 WBC (Bld) 30.7 % 20.5 - 60.0 % [facility] MCH (RBC) [Entitic mass] 30.6 pg 26.7 - 34.0 pg [facility] MCHC (RBC) [Mass/Vol] 34.2 g/dL 29.9 - 35.2 g/dL [facility] MCV (RBC) [Entitic vol] 89.5 fL 81.0 - 99.0 fL [facility] MONOCYTES ABSOLUTE AUTO 0.4 [facility] Monocytes/100 WBC (Bld) 7.3 % 1.7 - 12.0 % [facility] NEUTROPHILS ABSOLUTE AUTO 3.3 [facility] Neutrophils/100 WBC (Bld) 59.7 % 43.0 - 75.0 % [facility] Platelet mean volume (Bld) [Entitic vol] 9.9 fL 9.5 - 13.5 fL [facility] TBH EO # 0.1 [facility]H PLT 187 [facility] TB RBC 3.72 Low [facility] WBC 5.5 [facility] ALL TYPE AND SCREENon 2024 ABO and Rh group Nom (d) Blood group O Rh(D) positive [facility] US OB TRANSVAGINALon 025 US OB TRANSVAGINAL [...] II, MD, PHD at 16-Jan-2025 01:26:48 PM [facility] Normal Not Available Comment on above: Order Comment: US OB VIABILITY PLEASE PERFORM TRANSVAGINAL ULTRASOUND IF INDICATED No LMP recorded. Urine Cultureon 01-15-2025 Bacteria identified Cx Nom (U) >100,000 colonies/ml mixed bacterial skin contaminants 2 Days PERFORMED BY: [place] [address] PATHOLOGIST HOUSEKEEPING AIDE ANGELIC LESLIE M.D. Normal [facility] Comment on above: Performed By: #### C UU #### [address] US OB TRANSVAGINALon 025 US OB TRANSVAGINAL [...] II, MD, PHD at 13-Jan-2025 11:46:49 PM [facility] Normal Not Available Comment on above: Order Comment: US OB TRANSVAGINAL No LMP recorded. STREP A MOLECULARon 02-08-20 23 STREP A MOLECULAR Negative Normal Negative [facility] Comment on above: Performed By: #### [id number] #### [address] Strep AOrdered By: Khloe Kaminski on 02-06-2023 Streptococcus.beta-hemo lytic Org specific cx Ql (Unsp spec) Negative Negative [facility] Streptococcus.beta-hemolytic Org specific cx Ql (Unsp spec)Ordered By: Khloe Kaminski on 02-06-2023 Interpretation and review of laboratory results Normal [facility] GCon 06-17-2022 CHLAMYDIA AMPLIFIED PROBE Negative Normal Negative [facility] Comment on above: Performed By: #### [id number] #### [place] [address] GC AMPLIFIED PROBE Negative Normal Negative [facility] Comment on above: Performed By: #### [id number] #### [place] [address] GCon 06-16-2022 CHLAMYDIA SOURCE ThinPrep Normal [facility] Comment on above: Performed By: #### [id number] #### [place] [address] GC SOURCE ThinPrep Normal [facility] Comment on above: Performed By: #### [id number] #### [place] [address] US Breast - left limitedon 0 10-15-2021 [...] Clinical Follow-Up BI-RADS: ACR BI-RADS 1: Negative [facility] Study observation (narrative) [facility] US Breast - left limitedOrde red By: Dimas Patel on 10-15-2021 [employer] Work Phone: CBC without differentialOrde red By: Lexi Lewis on 03-23-2021 Erythrocyte distribution width (RBC) [Ratio] 13.9 % 11.5 - 14.5 % [facility] Hematocrit (Bld) [Volume fraction] 28.6 % Low 33.6 - 46.8 % [facility] Hemoglobin (Bld) [Mass/Vol] 9.1 g/dL Low 11.7 - 15.8 g/dL [facility] Interpretation and review of laboratory results Abnormal [facility] MCH (RBC) [Entitic mass] 28.4 pg 27.5 - 32.3 pg [facility] MCHC (RBC) [Mass/Vol] 31.8 g/dL 30.7 - 35.5 g/dl [facility] MCV (RBC) [Entitic vol] 89.4 fL 80.2 - 99.0 fL [facility] Platelets (Bld) [#/Vol] 196.0 10*3/uL [facility] RBC (Bld) [#/Vol] 3.20 10*6/uL Low [facility] WBC LM Ql (Sput) 11.3 High [facility] BUPRENORPHINE SCRN, UR, REFL EX QUANTOrdered By: Lexi Lewis on 03-22-2021 Buprenorphine Screen, UR Not detected CUTOFF <10 ng/mL [facility] Tox Message see below [facility] [...] [facility] RBC (Bld) [#/Vol] 4.21 10*6/uL [facility] WBC LM Ql (Sput) 11.9 [facility] Syphilis Treponema AntibodyO rdered By: Lexi Lewis on 03-22-2021 Syphilis Treponema Antibody Non-Reactive Nonreactive [facility] Toxicology screen, urineOrde red By: Lexi Lewis [...] ALL DRUG GROUPS ARE ANALYZED ON URINE. [facility] Type and ScreenOrdered By: Cristina Lewis on 03-22-2021 ABO and Rh group Nom (Bld) Blood group O Rh(D) positive [facility] Blood group antibody screen.cells I+II+III Ql Negative [facility] Fern test, vaginal fluidOrde red By: Stacy Alonso on 03-02-2021 Fern Test NONE SEEN NONE SEEN [facility] CBCon 01-05-2021 Erythrocyte distribution width (RBC) [Ratio] [...] [facility] RBC (Bld) [#/Vol] 3.83 10*6/uL [facility] WBC LM Ql (Sput) 10.9 [facility] Glucose tolerance, 1 houron 01-05-2021 Glucose 1 Hr post 50 g glucose PO [Mass/Vol] 83 mg/dL [facility] Comment on above: REFERENCE-GLUCOSE 1 HR WITH DEXTROSE Values >140 mg/dL constitute a positive screen [facility] Syphilis Treponema Antibody (RPR)on 01-05-2021 Syphilis Treponema Antibody Nonreactive Nonreactive [facility] Comprehensive metabolic pane l aka Met[facility]oon 11-26-2020 Albumin [Mass/Vol] 3.7 g/dL 3.5 - 5 g/dL [facility] Alk Phos 78 U/L 24 - [...] 21 mmol/L Low 22 - 30 mmol/L [facility] Comprehensive metabolic 2000 panel 0.46 mg/dL Low 0.52 - 1.04 mg/dL [facility] Glucose [Mass/Vol] 87 mg/dL 65 - 100 mg/dL [facility] Interpretation and review of laboratory results Abnormal [facility] Potassium [Moles/Vol] 4.2 mmol/L 3.6 - 5.1 mmol/L [facility] Protein [Mass/Vol] 6.8 g/dL 6.3 - 8.2 g/dL [facility] Sodium [Moles/Vol] 133 mmol/L Low 135 [...] fraction] 4.3 % 0 - 6 % [facility] Comment on above: Reference Interval f or %A1c %A1c (NGSP) Interpretation <6.0% Non-Diabetic Range >6.5% Action Suggested . Hepatitis C antibodyon 11-26 HCV Ab Qn (S) Nonreactive Nonreactive [facility] LDH SERUMon 11-26-2020 LDH Pyruvate to lactate reaction [Catalytic activity/Vol] 513 U/L 308 - 626 U/L [facility] Otheron 11-26-2020 [facility] Type & Screen (must order with either panel)on 11-26-2020 ABO and Rh group Nom (Bld) O POS [facility] Blood group antibody screen.cells I+II+III Ql Negative [facility] Protein / creatinine ratio, urineon 11-26-2020 Protein (U) [Mass/Vol] 10 mg/dL 0 - 12 mg/dL [facility] Protein/Creatinine (U) [Mass ratio] 0.1 [facility] Ur Cre-Random 118.20 mg/dL NO NORMALS [facility] Uric acidon 11-26-2020 Urate [Mass/Vol] 3.0 mg/dL 2 - 7 mg/dL [facility] Vital Signs Date Time Vital Sign Value Performing Clinician Facility 06-09-2025 10:59-0400 Body weight 75.66 kg Lexi Alcaraz NP Work Phone: [facility] 06-09-2025 10:59-0400 Diastolic blood pressure 68 mm[Hg] Lexi Alcaraz NP Work Phone: [facility] 06-09-2025 10:59-0400 Systolic blood pressure 118 mm[Hg] Lexi Alcaraz EDITOR NEWS Work Phone: [facility] 05-08-2025 13:21-0400 Body weight 74.66 kg [facility] 05-08-2025 13:21-0400 Diastolic blood pressure 70 mm[Hg] [facility] 05-08-2025 13:21-0400 Systolic blood pressure 120 mm[Hg] [facility] 02-07-2023 04:32-0400 Diastolic blood pressure 65 mm[Hg] Conchita Bomsta DO Work Phone: [facility] 02-07-2023 04:32-0400 Heart rate 69 /min Conchita Bomsta DO Work Phone: [facility] 02-07-2023 04:32-0400 Respiratory rate 18 /min Conchita Bomsta DO Work Phone: [facility] 02-07-2023 04:32-0400 SaO2% (BldA) [Mass fraction] 99 % Conchita Bomsta DO Work Phone: [facility] 02-07-2023 04:32-0400 Systolic blood pressure 114 mm[Hg] Conchita Bomsta DO Work Phone: [facility] 02-06-2023 23:14-0400 Body height 167.6 cm Conchita Bomsta DO Work Phone: [facility] 02-06-2023 23:14-0400 Body mass index (BMI) [Ratio] 34.7 kg/m2 Conchita Bomsta DO Work Phone: [facility] 02-06-2023 23:14-0400 Body temperature 98.91 [degF] Conchita Bomsta DO Work Phone: [facility] 02-06-2023 23:14-0400 Body weight 97.52 kg Conchita Bomsta DO Work Phone: [facility] 03-24-2021 08:00-0400 Body temperature 98.29 [degF] Lexi Lewis MD Work Phone: [facility] 03-24-2021 08:00-0400 Diastolic blood pressure 55 mm[Hg] Lexi Lewis MD Work Phone: [facility] 03-24-2021 08:00-0400 Heart rate 76 /min Lexi Lewis MD Work Phone: [facility] 03-24-2021 08:00-0400 Respiratory rate 16 /min Lexi Lewis MD Work Phone: [facility] 03-24-2021 08:00-0400 Systolic blood pressure 115 mm[Hg] Lexi Lewis MD Work Phone: [facility] 03-24-2021 04:00-0400 SaO2% (BldA) [Mass fraction] 97 % Lexi Lewis MD Work Phone: [facility] 03-21-2021 20:37-0400 Body height 167.6 cm Lexi Lewis MD Work Phone: [facility] 03-21-2021 20:37-0400 Body mass index (BMI) [Ratio] 39.71 kg/m2 Lexi Lewis MD Work Phone: [facility] 03-21-2021 20:37-0400 Body weight 111.58 kg Lexi Lewis MD Work Phone: [facility] 03-06-2021 21:50-0400 Diastolic blood pressure 57 mm[Hg] Stacy Alonso MD Work Phone: [facility] 03-06-2021 21:50-0400 Heart rate 77 /min Stacy Alonso MD Work Phone: [facility] 03-06-2021 21:50-0400 Systolic blood pressure 120 mm[Hg] Stacy Alonso MD Work Phone: [facility] 03-06-2021 20:50-0400 Body height 167.6 cm Stacy Alonso MD Work Phone: [facility] 03-06-2021 20:50-0400 Body mass index (BMI) [Ratio] 38.58 kg/m2 Stacy Alonso MD Work Phone: [facility] 03-06-2021 20:50-0400 Body weight 108.41 kg Stacy Alonso MD Work Phone: [phone] [address] 03-06-2021 20:50-0400 Respiratory rate 20 /min Stacy Alonso MD Work Phone: [facility] 03-06-2021 20:48-0400 Body temperature 98.01 [degF] Stacy Alonso MD Work Phone: [facility] 03-02-2021 02:04-0400 Diastolic blood pressure 69 mm[Hg] Stacy Alonso MD Work Phone: [phone] [address] 03-02-2021 02:04-0400 Heart rate 88 /min Stacy Alonso MD Work Phone: [facility] 03-02-2021 02:04-0400 Systolic blood pressure 131 mm[Hg] Stacy Alonso MD Work Phone: [facility] 03-02-2021 01:37-0400 Body height 167.6 cm Stacy Alonso MD Work Phone: [phone] [address] 03-02-2021 01:37-0400 Body mass index (BMI) [Ratio] 38.41 kg/m2 Stacy Alonso MD Work Phone: [facility] 03-02-2021 01:37-0400 Body temperature 98.91 [degF] Stacy Alonso MD Work Phone: [facility] 03-02-2021 01:37-0400 Body weight 107.96 kg Stacy Alonso MD Work Phone: [facility] 03-02-2021 01:37-0400 Respiratory rate 20 /min Stacy Alonso MD Work Phone: [facility] 02-03-2021 21:58-0400 Diastolic blood pressure 77 mm[Hg] Stacy Alonso MD Work Phone: [facility] 02-03-2021 21:58-0400 Heart rate 91 /min Stacy Alonso MD Work Phone: [facility] 02-03-2021 21:58-0400 Respiratory rate 18 /min Stacy Alonso MD Work Phone: [facility] 02-03-2021 21:58-0400 Systolic blood pressure 128 mm[Hg] Stacy Alonso MD Work Phone: [facility] 08-14-2020 09:19-0500 Body Temperature 98.49 [degF] Aliya Cao [facility] 08-14-2020 06:50-0500 BMI (Body Mass Index) 32.28 kg/m2 [facility] 08-14-2020 06:50-0500 Body weight 90.72 kg Aliya Cao [facility] 08-14-2020 06:50-0500 BP Diastolic 74 mm[Hg] Aliya Cao [facility] 08-14-2020 06:50-0500 BP Systolic 135 mm[Hg] Aliya Cao [facility] 08-14-2020 06:50-0500 Height 167.6 cm Aliya Cao [facility] 08-14-2020 06:50-0500 Pulse (Heart Rate) 82 /min [facility] Cao [facility] 08-14-2020 06:50-0500 Pulse Oximetry 99 % Aliya Cao [facility] 08-14-2020 06:50-0500 Respiratory Rate 18 /min [facility] En[facility]ters Encounter Date Encounter Type Care Provider Facility Start: 06-09-2025 End: 06-09-2025 Rafaela flowsdione Alcaraz NP Work Phone: [facility] Start: 06-09-2025 End: 06-09-2025 Bamboo flowsheet Lexi Alcaraz NP Work Phone: [facility] Start: 06-09-2025 End: 06-09-2025 Office outpatient visit 15 minutes Lexi Alcaraz NP Work Phone: [facility] Comment on above: 17 weeks gestation o f ([facility]); Second trimester ([facility]); Screening, , for anatomic survey ([facility]); Exposure to STD; Vaginal discharge; Well woman exam with routine gynecological exam Start: 06-09-2025 End: 06-09-2025 Patient encounter procedure Lexi Alcaraz NP Work Phone: [facility] Start: 05-08-2025 End: 05-08-2025 [facility] Result Encounter Robi Marcelo DO Work Phone: [facility] Unsolicited Start: 05-08-2025 End: 05-08-2025 [facility] Result Encounter Robi Marcelo DO Work Phone: [facility]olic[facility] Start: 05-08-2025 End: 05-08-2025 ambulatory Not Available Start: 05-08-2025 End: 05-08-2025 Office outpatient visit 5 minutes Marcelo Nurse [facility] Comment on above: GA: 12w4d Start: 05-08-2025 End: 05-08-2025 ambulatory Not Available Start: 04-09-2025 ambulatory Octavio Epperson acility:[facility] Start: 01-24-2025 End: 01-24-2025 [facility] Result Encounter Robi Marcelo DO Work Phone: [facility]olic[facility] Start: 01-24-2025 End: 01-24-2025 [facility] Result Encounter Robi Marcelo DO Work Phone: [facility] Start: 01-23-2025 End: 01-23-2025 [facility] Result Encounter Robi Marcelo DO Work Phone: [facility] Start: 01-23-2025 End: 01-23-2025 [facility] Result Encounter Robi Robertson DO Work Phone: [facility]olic[facility] Start: 01-16-2025 End: 01-16-2025 ambulatory Not Available Start: 01-15-2025 End: 01-15-2025 ambulatory NON STAFF [facility] Work Phone: Start: 01-15-2025 End: 01-15-2025 Departed Referred [facility] Start: 01-10-2025 End: 01-10-2025 ambulatory Not Available Start: 12-27-2024 Registered Recurring Fi [facility] Start: 02-07-2023 End: 02-07-2023 Emergency department patient visit GLORIA [facility] Start: 02-07-2023 End: 02-07-2023 Emergency department patient visit Conhcita Huffman Tiburcioliza DO Work Phone: [facility] Comment on above: Sore throat (Primary Dx) Start: 06-20-2022 ambulatory BRENDAN PEREZ [facility] [facility] Start: 06-14-[facility]22 End: 06-14-2022 ambulatory [facility] Start: 06-14-2022 Encounter for gynecological examination (general) (routine) without abnormal findings [facility] Start: 06-14-2022 End: 06-15-2022 ambulatory [facility] Start: 02-06-2022 End: 02-06-2022 Subsequent hospital visit by physician Paulo Upton DO Work Phone: [facility] Start: 02-04-2022 End: 02-04-2022 Subsequent hospital visit by physician Kym Gutierrez APRN [employer] Work Phone: [facility] Comment on above: URI with cough and c ongestion Start: 10-15-2021 End: 10-15-2021 Subsequent hospital visit by physician Marianna Abbasi APRN [employer]AK[employer] SUPERVISOR Work Phone: [facility] Comment on above: Breast pain, left Start: 06-08-2021 End: 06-08-2021 Subsequent hospital visit by physician Job Fitzgerald MD Work Phone: [facility] Start: 03-21-2021 End: 03-24-2021 Evaluation and management of inpatient Lexi Lewis MD Work Phone: [facility] ([address]) Comment on above: Encounter for induct ion of labor (Primary Dx) Start: 03-06-2021 End: 03-06-2021 Subsequent hospital visit by physician Stacy Alonso MD Work Phone: [facility] ([address]) Start: 03-02-2021 End: 03-02-2021 Subsequent hospital visit by physician Stacy Alonso MD Work Phone: [facility] ([address]) Start: 02-24-2021 End: 02-24-2021 Subsequent hospital visit by physician Nicole Rodarte DO Work Phone: [facility] Comment on above: 36 weeks gestation o f ; Chlamydia trachomatis infection in mother during second trimester of Start: 02-03-2021 End: 02-03-2021 Subsequent hospital visit by physician Stacy Alonso MD Work Phone: [facility] ([address]) Start: 01-05-2021 End: 01-05-2021 Subsequent hospital visit by physician Nicole Rodarte Work Phone: [facility] Comment on above: 27 weeks gestation o f Start: 12-21-2020 End: 12-21-2020 Subsequent hospital visit by physician Nicole Rodarte Work Phone: [facility] Comment on above: 27 weeks gestation o f ; Chlamydia trachomatis infection in mother during second trimester of Start: 11-26-2020 End: 11-26-2020 Subsequent hospital visit by physician Nicole Rodarte Work Phone: [facility] Comment on above: Late care a ffecting in second trimester Start: 11-26-2020 End: 11-26-2020 Subsequent hospital visit by physician Nicole Rodarte Work Phone: [facility] Comment on above: Late care a ffecting in second trimester; History of low potassium; Elevated blood pressure reading Start: 08-14-2020 End: 08-14-2020 Emergency department patient visit Aliya Cao Work Phone: [facility] Comment on above: Pain, dental (Primar y Dx); Jaw swelling Procedures Date Procedure Procedure Detail Performing Clinician Start: 06-09-2025 Urnls dip stick/tabl et rgnt non-auto w/o micrscp Lexi Alcaraz EDITOR NEWS Work Phone: Start: 05-08-2025 BOX TEST Robi Fazi o DO Work Phone: Start: 05-08-2025 End: 05-08-2025 Urnls dip stick/tablet rgnt non-auto w/o micrscp Robi Marcelo DO Work Phone: Start: 01-24-2025 ALL CBC WITH AUTO DIFF Robi Marcelo DO Work Phone: Start: 01-23-2025 Antibody screen Robi F azio DO Work Phone: Start: 01-23-2025 ALL TYPE AND SCREEN Cor ey Marcelo DO Work Phone: Start: 02-06-2023 Iadna streptococcus group a amplified probe tq Conchita Huffman [employer] DO Work Phone: Start: 06-14-2022 Microscopic observat ion [Identifier] in Cervix by Cyto stain Conchita Carrion DO Work Phone: Start: 10-15-2021 Us breast uni real t duane with image limited Marianna Abbasi APRN [employer] SUPERVISOR Work Phone: Start: 03-23-2021 Blood count complete automated Lexi Lewis MD Work Phone: Start: 03-22-2021 BUPRENORPHINE SCRN, UR, REFLEX QUANT Lexi Lewis MD Work Phone: Start: 03-22-2021 Drug tst prsmv instr mnt chem analyzers pr date Lexi Lewis MD Work Phone: Start: 03-22-2021 Antibody treponema pallidum eLxi Lewis MD Work Phone: Start: 03-22-2021 Blood [...] Td or Tdap) [facility] Start: 07-07-2025 End: 07-07-2025 Patient encounter procedure 07/07/2025 2:00 PM EDT [facility]ine [facility] [address] [place] [phone] Lexi Alcaraz, LEE [address] [place] [phone] [facility] Start: 07-07-2025 End: 07-07-2025 Professional / ancillary services management 07/07/2025 1:00 PM EDT Ancillary Procedure [facility] [address] [place] [phone] [facility] Start: 06-14-2025 Screening for malign ant neoplasm of cervix PAP SMEAR [facility] Start: 06-09-2025 End: 07-09-2025 Alpha fetoprotein, maternal Alpha fetoprotein, maternal Lab Routine 17 weeks gestation of ([facility]) Second trimester ([facility]) Expected: 06/09/2025 (Approximate), Expires: 07/09/2025 [facility] Comment on above: Expected: 06/09/2025 (Approximate), Expires: 07/09/2025 Start: 06-09-2025 End: 09-08-2025 US for US OB 14+ weeks anatomy scan Imaging Routine Screening, , for anatomic survey ([facility]) Expected: 06/09/2025, Expires: 09/08/2025 [facility] Comment on above: Expected: 06/09/2025 , Expires: 09/08/2025 Start: 06-09-2025 End: 06-09-2025 Patient encounter procedure 06/09/2025 10:40 AM EDT Routine [facility] [address] [place] [phone] Robi Robertson DO [address] [place] [address] [facility] Start: 05-08-2025 End: 05-08-2026 ABO/Rh ABO/Rh Lab Routine Missed menses , unspecified gestational age ([facility]) Expected: 05/08/2025 (Approximate), Expires: 05/08/2026 [facility] Comment on above: Expected: 05/08/2025 (Approximate), Expires: 05/08/2026 Start: 05-08-2025 End: 05-08-2026 Blood type and Indirect antibody screen panel - Blood Type and screen Lab Routine Missed menses , unspecified gestational age ([facility]) Expected: 05/08/2025 (Approximate), Expires: 05/08/2026 [facility] Comment on above: Expected: 05/08/2025 (Approximate), Expires: 05/08/2026 Start: 05-08-2025 End: 05-08-2026 Drugs of abuse panel - Urine by Screen method Rapid drug screen, urine Lab Routine , unspecified gestational age ([facility]) Encounter for supervision of normal first in first trimester ([facility]) Expected: 05/08/2025 (Approximate), Expires: 05/08/2026 [facility] Comment on above: Expected: 05/08/2025 (Approximate), Expires: 05/08/2026 Start: 05-07-2025 End: 08-07-2025 US Pelvis transvaginal US OB transvaginal Imaging Routine Missed menses Positive urine test ([facility]) Expected: 05/07/2025, Expires: 08/07/2025 [facility] Work Phone: Comment on above: Expected: 05/07/2025 , Expires: 08/07/2025 Start: 01-30-2025 End: 01-30-2025 Patient encounter procedure 01/30/2025 10:50 AM EDT Office Visit [facility] [address] [place] [address] Robi Robertson DO [address] [place] [address] [facility] Start: 01-15-[address] [facility] Start: 01-15-2025 Bacteria identified in Urine by Culture Urine Culture [facility] Start: 06-20-2023 End: 06-20-2023 Patient encounter procedure 06/20/2023 Office Visit Obstetrics and Gynecology Belle Ochoa APRN [employer] SUPERVISOR [address] [place] [address] [facility]EC[facility] Start: 06-15-2023 ANNUAL WELLNESS VISIT ANNUAL [employer] VISIT [facility] Start: 06-14-2023 CHLAMYDIA SCREENING CHLAMYDIA SCREEN [facility] Start: 06-02-2023 Influenza vaccinatio n given INFLUENZA VACCINE (Season Ended) [facility] Start: 06-02-2022 Influenza vaccinatio n given INFLUENZA VACCINE (Season Ended) [facility] Start: 05-25-2022 End: 05-25-2022 Patient encounter procedure 05/25/2022 Office Visit Obstetrics and Gynecology Belle Ochoa APRN [employer]AK[employer] SUPERVISOR [address] [place] [address] [facility]GYNECOLOG Y Start: 02-24-2022 CHLAMYDIA SCREENING CHLAMYDIA SCREEN ING [facility] Start: 12-21-2021 CHLAMYDIA SCREENING CHLAMYDIA SCREEN [facility] Start: 11-26-2021 CHLAMYDIA SCREENING CHLAMYDIA SCREEN [facility] Start: 10-18-2021 End: 10-18-2021 Patient encounter procedure 10/18/2021 Office Visit Dentistry Alka Adams, EDWIN [address] [place] [address] [facility] Start: 2021 Screening for malign ant neoplasm of cervix PAP SMEAR [facility] Start: 07-22-2021 End: 07-22-2021 Patient encounter procedure 07/22/2021 Office Visit Dentistry Alka Adams, DDS [address] [place] [address] [facility] Start: 06-02-2021 Influenza vaccinatio n given [facility] Start: 05-12-2021 End: 05-12-2021 ambulatory 05/12/2021 Visit Obstetrics and Gynecology Nicole Rodarte DO [address] [place] [address] [phone] [facility] Start: 03-10-2021 End: 03-10-2021 Patient encounter procedure 03/10/2021 Routine Obstetrics and Gynecology Nicole Rodarte DO [address] [place] [address] [facility] Start: 03-04-2021 End: 03-04-2021 Patient encounter procedure 03/04/2021 Routine Obstetrics and Gynecology Nicole Rodarte DO [address] [place] [address] [facility] Start: 02-24-2021 End: 02-24-2021 Patient encounter procedure 02/24/2021 Routine Obstetrics and Gynecology Nicole Rodarte DO [address] [place] [address] [facility] Start: 02-11-2021 End: 02-11-2021 Patient encounter procedure 02/11/2021 Routine Obstetrics and Gynecology Nicole Rodarte DO [address] [place] [address] [facility] Start: 01-11-2021 End: 01-11-2021 Routine 01/11/2021 Routine Obstetrics and Gynecology Nicole Rodarte DO [address] [facility] [address] [place] [address] [phone] [facility]OLOG [facility] Start: 12-24-2020 End: 12-24-2020 Routine 12/24/2020 Routine Obstetrics and Gynecology Nicole Rodarte DO [address] [facility] [address] [place] [address] [phone] [facility] Start: 06-02-2020 Influenza vaccinatio n [...] COVID-19 VACCI NE (#1) [facility] Bacteria identified in Urine by Culture Urine culture Microbiology Routine Missed menses Ordered: 05/08/2025 [facility] Comment on above: Ordered: 05/08/2025 CBC W Auto Different ial panel - Blood CBC and differential Lab Routine Missed menses , unspecified gestational age ([facility]) Ordered: 05/08/2025 [facility] Comment on above: Ordered: 05/08/2025 CHLAMYDIA TRACHOMATI S (GENITO/STI) CHLAMYDIA TRACHOMATIS (GENITO/STI) Lab Routine Exposure to STD Ordered: 06/09/2025 [facility] Comment on above: Ordered: 06/09/2025 End: 11-26-2020 Chlamydia trachomatis+Neisseria gonorrhoeae rRNA [Presence] [...] 02/24/2021 End: 06-08-2021 COVID-19 (2019 NOVEL CORONAVIRUS) [facility] Work Phone: Comment on above: One Time for 1 Occur rences starting 06/08/2021 until 06/08/2021 Cytology Cervical or vaginal smear or scraping study Pap Smear Pathology and Cytology Routine Well woman exam with routine gynecological exam Ordered: 06/09/2025 [facility] Comment on above: Ordered: 06/09/2025 End: 11-26-2020 Drug Screen Urine Extended Panel Drug Screen Urine Extended Panel Lab Routine Late care affecting in second trimester 1 Occurrences starting 11/26/2020 until 11/26/2020 [facility] Comment on above: 1 Occurrences starti ng 11/26/2020 until 11/26/2020 Drug Screen Urine Extended Panel Drug Screen Urine Extended Panel Lab Routine Late care affecting in second trimester 11/26/2020 3:23 PM EST [facility] nonstress test nonst ress test OB [...] weeks gestation of 02/24/2021 10:07 PM EDT [facility] Hemoglobin A1c/Hemoglobin.total in Blood Hemoglobin A1c Lab Routine Missed menses , unspecified gestational age ([facility]) Ordered: 05/08/2025 [facility] Comment on above: Ordered: 05/08/2025 Hepatitis B virus surface Ag [Presence] in Serum or Plasma by Immunoassay Hepatitis B surface antigen Lab Routine Missed menses , unspecified gestational age ([facility]) Ordered: 05/08/2025 [facility] Comment on above: Ordered: 05/08/2025 Hepatitis C virus Ab [Presence] in Serum or Plasma by Immunoassay Hepatitis C antibody Lab Routine Missed menses , unspecified gestational age ([facility]) Ordered: 05/08/2025 [facility] Comment on above: Ordered: 05/08/2025 HIV-1/HIV-2 antigen/antibody combination immunoassay HIV-1 and HIV-2 antibodies Lab Routine Missed menses , unspecified gestational age ([facility]) Ordered: 05/08/2025 [facility] Comment on above: Ordered: 05/08/2025 Neisseria gonorrhoea e DNA [Presence] in Unspecified specimen by MARIZA with probe detection Neisseria gonorrhea DNA probe, direct Lab Routine Exposure to STD Ordered: 06/09/2025 [facility] Comment on above: Ordered: 06/09/2025 End: 03-06-2021 POCT Nitrazine Test POCT Nitrazine Test OB Routine One Time for 1 Occurrences starting 03/06/2021 until 03/06/2021 [facility] Comment on above: One Time for 1 Occur rences starting 03/06/2021 until 03/06/2021 PANEL WITH HIV Panel with HIV Lab Routine Late care affecting in second trimester 11/26/2020 3:26 PM EST [employer] [facility] Ab [Presence] in Serum by RPR RPR Lab Routine Missed menses , unspecified gestational age ([facility]) Ordered: 05/08/2025 [facility] Comment on above: Ordered: 05/08/2025 Rubella antibody, IgG Rubella an tibody, IgG Lab Routine Missed menses , unspecified gestational age ([facility]) Ordered: 05/08/2025 [facility] Comment on above: Ordered: 05/08/2025 End: 02-04-2022 SARS-COV-2, TMA [employer] Work Phone: Comment on above: One Time for 1 Occur rences starting 02/04/2022 until 02/04/2022 End: 02-06-2022 SARS-COV-2, [facility] [employer] Work Phone: Comment on above: One Time for 1 Occur rences starting 02/06/2022 until 02/06/2022 SURESWAB(R) ADVANCED VAGINITIS PLUS, TMA SURESWAB(R) ADVANCED VAGINITIS PLUS, TMA Pathology and Cytology Routine Vaginal discharge Ordered: 06/09/2025 [facility] [employer] Work Phone: Comment on above: Ordered: 06/09/2025 End: 11-26-2020 Urine culture and sensitivity Urine culture and sensitivity Microbiology Routine Late care affecting in second trimester 1 Occurrences starting 11/26/2020 until 11/26/2020 [facility] Comment on above: 1 Occurrences starti ng 11/26/2020 until 11/26/2020 Urine culture and sensitivity Urine culture and sensitivity Microbiology Routine Late care affecting in second trimester 11/26/2020 3:23 PM EST [facility] US Pelvis transvaginal US OB tra nsvaginal Imaging Routine Missed menses Positive urine test ([facility]) 05/08/2025 12:54 PM EDT [facility] Immunizations Immunization Date Immunization Notes Care Provider Sun rolle 03-04-2021 tetanus toxoid, reduced diphtheria toxoid, and acellular pertussis vaccine, adsorbed Stacy Alonso MD Work Phone: [employer] 08-26-2008 influenza virus vaccine, unspecified formulation Lexi Lewis MD Work Phone: [facility] NEGATED: Highlighted row has not occurred!03-22-2021 measles, mumps and rubella virus vaccine Lexi Lewis MD Work Phone: [facility] Comment on above: Deferred: - immune Payers Date Payer Category Payer Self-pay 2024 Medicaid (Managed Care) [employer] [id number] 2024 Unknown [id number] 2020 Medicaid [id number] 2020 Medicaid [facility] [id number] 2020-Present [phone] [place] [id number] Medicaid [id number] 2000 Unknown [id number] 2000 Unknown [id number] 2000 Unknown [id number] 2000 Unknown [id number] 2000 Unknown [id number] [id number] 2000 Unknown [id number] [id number] 2000 Unknown [id number] [id number] 2000 Unknown [id number] [id number] Social History Date Type Detail Facility Start: 08-14-2020 End: 02-04-2022 Tobacco smoking status SDIS Former smoker [facility] Start: 08-14-2020 End: 06-14-2022 Tobacco use and exposure Never used [facility] Start: 2000 Sex Assigned At Not on file [facility] Start: 01-27-2023 End: 02-07-2023 Exposure to SARS-CoV-2 (event) Not sure [facility] End: 11-02-2020 History of tobacco use Current smoker [facility] Start: 11-26-2020 End: 02-04-2022 Alcohol intake Ex-drinker (finding) [facility] Start: 06-29-2020 [facility] Exposure to SARS-CoV-2 (event) Unable to assess [facility] Start: 2000 Sex Assigned At Female [facility] Work Phone: Start: 09-21-2021 End: 06-14-2022 Tobacco smoking status NHIS Current every day smoker [facility] Work Phone: History of tobacco use Tobacco Use Types Packs/Day Years Used Date Smoking Tobacco: Every Day E-Cig/Vaping Smokeless Tobacco: Never [facility] Start: 02-07-2023 Alcohol intake Current drinke r of alcohol (finding) [facility] Start: 06-14-2022 Alcohol Comment occ [facility] Tobacco smoking status [facility] Tobacco smoking consumption unknown [facility] Healthcare Gender identity Not on file [facility] Start: 01-17-2025 Sex Patient sex un known (finding) [facility] Clinical Notes 02-03-2021 to 06-09-2025 Ariella Wells, ANTHONY - 06/09/2025 10:40 AM Hernan Pitts, ANTHONY - 05/08/2025 1:00 PM Ava Nguyen, DAVID - 02/07/2023 4:32 AM Ava Nguyen RN - 02/07/2023 4:32 AM EDTInstructionsInstructions Note Date & Type Note Facility 06-09-2025 History of Presen t illness Narrative Reason for Appointment: Patient ID: Eva Granados [...] nursing note reviewed. Exam conducted with a brim molder present. Vitals: There is no height or weight on file to calculate BMI. BP: 118/68 Patient's last menstrual period was 04/14/2025. ASSESSMENT & PLAN ICD-10-CM 1. 17 weeks gestation of ([facility]) Z3A.17 POCT urinalysis dipstick manually resulted Alpha fetoprotein, maternal Alpha fetoprotein, maternal 2. Second trimester ([facility]) Z34.92 POCT urinalysis dipstick manually resulted Alpha fetoprotein, maternal Alpha fetoprotein, maternal 3. Screening, , for anatomic survey ([facility]) Z36.89 US OB 14+ weeks anatomy scan [...] obtained without difficulty and patient was given [facility] order to have obtained. Orders Placed This Encounter Procedures US OB 14+ weeks anatomy scan CHLAMYDIA TRACHOMATIS (GENITO/STI) Neisseria gonorrhea DNA probe, direct Alpha fetoprotein, maternal POCT urinalysis dipstick manually resulted Follow Up: Patient is to return to our office in 4 weeks for routine OB appointment Documented by Ariella Wells LPN on behalf of: Lexi Alcaraz NP documented in this encounter [facility] 05-08-2025 History of Presen t illness Narrative Reason for Appointment: Patient ID: Eva Granados is a 24 y.o. female who presents for Amenorrhea Patient presents today for a Nurse OB Intake appointment. Patient is 12w4d with a Estimated Date of Delivery: 11/16/25 OB History Para Term AB Living [...] urinalysis dipstick manually resulted Positive urine test ([facility]) - US OB transvaginal; Future , unspecified gestational age ([facility]) - Type and screen; Future - ABO/Rh; Future - CBC and differential - Hemoglobin A1c - RPR - Rubella antibody, IgG - Hepatitis B surface antigen - Hepatitis C antibody - HIV-1 and HIV-2 antibodies - Rapid drug screen, urine; Future Encounter for supervision of normal first in first trimester ([facility]) - Rapid drug screen, urine; Future Nurse Note: OB Intake: Patient presents today for first OB visit. Patients history has been reviewed in great detail including any potential risks. Patient signed consent forms and patient desires testing in both trimesters. Patient currently has no complaints and has been advised to drink 6-8 glasses of water a day, eat no raw or undercooked meat, and stay away from [facility]. Patient has also been advised to not change litter boxes and eat 6 small meals a day. Patient has been consulted regarding the do's and don'ts of . Patient was given labs and all questions and concerns were answered. Patient given [place] to have obtained with Initial labs. Patient [...] Kimmie Pitts LPN documented in this encounter [facility] 02-07-2023 Emergency department Note Discharge instructions given [...] Speech is clear. No distress during triage. [facility] 10-15-2021 Note CLINICAL HISTORY: Patient is [...] swallowing observed. Mom is able to relatch using techniques taught. Grandma is also concerned [...] page for further assistance as needed. 03/22/21 1445 Consult Initial assessment Previous n/a Gestational Age [...] OB Social Work Consult Reason for Referral: MOB has hx of anx Interview Participants: MOB Support System Father of Baby: Yes Family Support: Yes Marital Status: Single Patient Information Employment: yes Student: no Household Size: 3 Other Children in home: 0 Client Account Assistant / Family Physician: Dr Porras Problem List: Psychiatric History Community Agencies Involved: [facility] Assessment:: MOB has hx of anx. Reports that she gets nervous but is okay. MOB reports she has hx of dep but hasn't had it [id number]. PPD handout provided with verbal edu on [...] not included. Rosina Vergara Social Worker IP Market Specialist D/C Planning Signed Note Time: 03/22/211508 Creation Time: 03/22/211508 Signed []Hide copied text []Hover for details [...] needs. Vaginal Delivery Note Eva Granados 2000 [id number] 20 y.o. at 40w0d gestation Delivering Duplex Trimmer: Lexi Lewis Primary Duplex Trimmer: Lexi Lewis Pre-Delivery Diagnosis: IUP at 40 [...] Lewis with pt update. Discussed pt SVE /3 and pt contraction pattern and FHR tracing. [...] to room 2104. EFM monitors applied. SVE /-3. documented in this encounter [facility] 03-24-2021 Hospital course Narrative Obstetrical Discharge Summary Eva Granados 2000 [id number] 03/21/2021 Delivering OB Clinician: Lexi Lewis MD [...] and may contain errors. Rounding Note Eva Vásquezr 20 y.o. Patient is resting comfortably in [...] for : 37w US: vertex, EFW 3028g ([id number]) 42%ile, SUGAR 15.0cm, post gr3 placenta Late [...] +accelerations, intermittent early, late, and variable decelerations [place]: q 1-3 minutes VE: Complete/+2 station with artificial rupture performed for clear fluid Eva Granados 2000 [id number] 20 y.o. at 40w1d with EDC of Estimated Date of Delivery: 03/22/21 who is being admitted for induction of labor. Her current obstetrical history is remarkable for: 37w US: vertex, EFW 3028g ([id number]) 42%ile, SUGAR 15.0cm, post gr3 placenta Late [...] cephalic FHTs: To be assessed on arrival [place]: To be assessed on arrival Cervix: Last in office Dilation: 1cm Effacement: 50% Station: -3 Damon score: 3 Labs GBS neg Rh pos Impression: 20 y.o. at 40w1d Induction of labor Late PNC at 23w Chlamydia at NOB but 36w recheck neg GBS neg Rh pos Plan: 1. ATSO [place] 2. CEFM + [place] 3. Admission labs 4. Suspect some component of mild blood pressure elevations related to anxiety as happened at [facility] and when seeing a different provider last [...] [facility] 03-06-2021 Hospital Discharg e instructions Nadege [...] not have a private physician call the [facility] NurseLine right away at or . [...] Call according to your Doctor s instructions. [facility] is located at [facility] on the [facility]. Warning Signals Possible Complications in Call [...] [facility] Hospital Discharg e instructions Jorge [...] Hydrocortisone. Ask your doctor about taking an rqhp-hhy-ruyjpyo stool softener. Consider Experts recommend that women [...] may help to think about your personal, gnosticism, and family traditions. You get to decide if you will keep your son's penis natural or if he will be circumcised. If you decide that you would like to have your baby circumcised, talk with your doctor. You can share your concerns about pain. And you can discuss your preferences for anesthesia. Where can you learn more? Go to https://www.[employer].FOODit/pat ientEd Enter X711 in the search box to learn more about Weeks 32 to 34 of Your : Care Instructions. Current as of: July 09, 2020 Content Version: 12.8 [employer]. Care instructions adapted under license by your healthcare professional. If you have questions about a medical condition or this instruction, always ask your healthcare professional. [employer] disclaims any warranty or liability for your use of this information. documented in this encounter [facility] Evaluation note Diagnosis 36 weeks gestation of state, incidental Chlamydia trachomatis infection in mother during second trimester of [facility] Diagnosis (spontaneous vaginal delivery)- Primary Normal delivery Encounter for induction of labor Normal labor Chlamydia trachomatis infection in mother during second trimester of Late care affecting in second trimester [facility] Diagnosis Breast pain, left Mastodynia [facility] Diagnosis URI with cough and congestion [facility] Diagnosis Sore throat- Primary Acute pharyngitis [facility]No assessment information available [facility] Work Phone: Evaluation note* Diagnosis Missed menses Positive urine test ([facility]) , unspecified gestational age ([facility]) Encounter for supervision of normal first in first trimester ([facility]) Nonintractable headache, unspecified chronicity pattern, unspecified headache type documented in this encounter [facility] HealthcareEvaluation note* Diagnosis 17 weeks gestation of ([facility]) Second trimester ([facility]) state, incidental Screening, , for anatomic survey ([facility]) Encounter for anatomic survey Exposure to STD Vaginal discharge Leukorrhea, not specified as infective Well woman exam with routine gynecological exam Routine gynecological examination documented in this encounter [facility] HealthcareHospital Discharge instructions* Instructions* Tamiko Melo RN - 03/02/2021 Signs and Symptoms of Labor This is a guide for you about the signs of true labor. If you have any of these signs before 36 weeks of (nine months), please call your private physician. If you do not have a private physician call the [facility] NurseLine right away at or . [...] Call according to your Doctor s instructions. [facility] is located at [facility]. Warning Signals Possible Complications in Call [...] movement (use kick count). [facility]* Instructions* Maile Moses [...] eating high-fiber foods. Ask your doctor about gmqp-iqt-jlfhmai stool softeners. Cleanse yourself with a gentle [...] few days after delivery. Plan for child welfare counselor if you have other children. Stay flexible [...] Where can you learn more? Go to https://www.[employer].net/patientEd Enter A461 in the search box to learn more about After Your Delivery (the Period): CareInstructions. Current as of: July 09, 2020 Content Version: 12.9 [employer]. Care instructions adapted under license by your healthcare professional. If you have questions about a medical condition or this instruction, always ask your healthcare professional. [employer] disclaims any warranty or liability for your use of this information. * Attachments The following attachments cannot be sent through Care Everywhere. * (Belarusian Argentine) [facility]* Attachments The following attachments cannot be sent through Care Everywhere. * Sore Throat ([place]arusian Argentine) [facility] (n[facility]ative)* Procedure Authorization (Routine) - Closed Specialty Diagnoses / Procedures Referred By Contac t Referred To Contact Diagnoses Breast pain, left Procedures US Breast Left Limited Marianna Abbasi APRN [employer]AKING [employer]ITS SUPERVISOR [address] [place] [address] [facility] [address] [address] Referral ID Status Reason Start Date Expiration Date Visits Re quested Visits Authorized [id number] Closed 09/21/2021 10/22/2022 1 1 [facility] N[facility]* Procedure Authorization (Routine) - Closed Specialty Diagnoses / Procedures Referred By Contac t Referred To Contact Diagnoses Breast pain, left Procedures US Breast Left Limited Marianna Abbasi APRN [employer]AKING PITS SUPERVISOR [address] [place] [address] [facility] [address] [address] Referral ID Status Reason Start Date Expiration Date Visits Re quested Visits Authorized [id number] Closed 09/21/2021 10/22/2022 1 1 [facility] Reason for Referral Status Reason Specialty Diagnoses / Procedures Referred By Contact Referred To Contact [facility] Controller / Dentistry Diagnoses Pain, dental Jaw swelling Aliya Cao DO [address] [place] [address] [facility] [address] [place] [address] Status Reason Specialty Diagnoses / Procedures Referred By Contact Referred To Contact [facility] Diagnoses Pain, dental Jaw swelling Aliya Cao DO [address] [place] [address] [facility] [address] [facility] [place] [address] [place] [address] Discharge Instructions * Instructions* Aliya Cao DO - 08/14/2020 No driving or operating heavy machinery while taking norco - no extra tylenol * Attachments The following attachments cannot be sent through Care Everywhere. * Tooth and Gum Pain (Belarusian Argentine) documented in this encounter Assessments Diagnosis Pain, [...] Documents on File Type Date Recorded Patient Dyer Helper Expl anation Advance Directives and Living Will Power of Action Finisher Documents on File Type Date Recorded Patient Dyer Helper Expl anation Advance Directives and Living Will Power of Action Finisher Latest Code Status on File Code Status [...] Documents on File Type Date Recorded Patient Dyer Helper Expl anation Advance Directives and Living Will Power of Action Finisher DNR Documentation Latest Code Status on File Code Status Date Activated Date Inactivated Comments Full Code 03/22/2021 5:16 AM 03/24/2021 7:51 PM Full Code 03/22/2021 1:13 AM 03/22/2021 5:16 AM Full Code 03/21/2021 9:27 PM 03/22/2021 1:13 AM Full Code 03/19/2021 11:50 AM 03/21/2021 9:27 PM Full Code 03/06/2021 9:45 PM 03/07/2021 4:11 AM Documents on File Type Date Recorded Patient Dyer Helper Expl anation Advance Directives and Living Will Power of Action Finisher DNR Documentation Summary Purpose Family History No [...] INDUCTION CYTOTEC Reason Comments Other Throat tightness Reason Comments Amenorrhea Reason Comments Routine Visit [facility] Women Visit STI Screening Aliya Cao, - 08/14/2020 8:59 AM Juliann [...] Pre-Delivery 0425 (New Bag - Provider: Leah Belle, RN) multivitamin 27-0.8 MG tablet 1 tablet 1 tablet, Oral, DAILY, First dose on Mon03/22/21 at 0900, Until Discontinued 0900 (Due) 0941 (Given - Provider: Ella Duarte, DAVID) 0824 (Given - Provider: Maile Moses RN) TdaP swpnfev-jhpqbcjtqb-gkxh lular pertussis (BOOSTRIX) injection 0.5 mL 0.5 mL, Intramuscular, PRIOR TO DISCHARGE, 1 dose, On Mon03/22/21 at 0600, ONLY give if patient has not received during this . 0900 (Due - Provider: Leah Graves, DAVID) Continuous Medication Order 03/22/2021 03/23/2021 03/24/2021 lactated ringers infusion Intravenous, at 125 mL/hr, CONTINUOUS, Starting on Mon03/22/21 at 0030, Until Discontinued 0135 (New Bag - Provider: Leah Belle, DAVID)0457 (Stopped - Provider: Leah Graves, DAVID) oxytocin [...] 6 HOURS PRN, Cramping, Indigestion, Starting on 6/21/21 at 0514, Until Discontinued benzocaine-menthol (DERMOPLAST) 20-0.5 [...] Leah Graves RN)1613 (Given - Provider: Susan Mizer, RN) 1243 (Given - Provider: Ella Duarte [...] 2359 0529 (New Bag - Provider: Leah Belle RN)0905 (Infusion Complete - Provider: Leah Graves RN) simethicone (MYLICON) chewable tablet 80 mg 80 [...] January 15, 2025 End: January 15, 2025 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 [facility]. provides no warranty or guarantee of the accuracy or completeness of information in this document.
[2025-06-11 16:18] LABS: Age Gdln ACOG Testing Note (.); IGP, rfx Aptima HPV ASCU Note (.)
== END 2025-06-09 14:34 | disposition home or self-care (01) ==
LOC: LAB 14:33
PROVIDERS: PCP Nurse Practitioner Family; Visit Provider Nurse Practitioner Family
DX: Z01.419 Encounter for gynecological examination (general) (routine) without abnormal findings (principal)
CPT/HCPCS: 88175

== ENCOUNTER 2025-07-07 13:51 | Outpatient (OUT) | payer OTHER, SELFPAY ==
--- NOTE | 2025-07-07 13:56 | US_ITS ---
The [address] [address] Patient Name: VERN DUONG MRN: [id number] date: 2000 Sex: F Assigned Patient Location: Current Patient Location: Accession/Order Number: [id number] Exam Date: 07/07/2025 13:57 Report Date: 07/08/2025 08:12 At the request of: ATTIANA KAISER Procedure: US OB cervical length CLINICAL DATA: Anatomy survey COMPARISON: 05/12/2025 ULTRASOUND OB ANATOMY There is a single live intrauterine gestation in breech presentation. There is cardiac and somatic activity with heart rate of 146 bpm. The amniotic fluid volume is subjectively normal. The placenta is anterior and fundal and unremarkable in appearance and position. The neural axis and all 4 extremities were surveyed by the vice president payment and no abnormalities were detected. The stomach, bladder, kidneys, four-chamber heart with right and left ventricular outflow tracts, diaphragm, facial features and male gender are visualized. An echogenic focus is visualized within the left ventricle. This can be a normal variant. The following measurements were obtained: Biparietal diameter 4.9 cm 20 weeks 5 days 33% Head circumference 19.0 cm 21 weeks 2 days 44% Abdominal circumference 16.2 cm 21 weeks 2 days 47% Femur length 3.1 cm 19 weeks 3 days 4% The composite ultrasound age based these measurements is 20 weeks 5 days +/- 1 week 3 days. The estimated date of delivery is 11/19/2025. Estimated weight is 13 ounces +/- 2 ounces (17%) US/US OB anatomy IMPRESSION: SINGLE LIVE INTRAUTERINE GESTATION WITH ULTRASOUND AGE OF 20 WEEKS 5 DAYS. UNREMARKABLE ANATOMY SURVEY. ULTRASOUND OB CERVICAL LENGTH The cervical length was measured with the transvaginal probe. The cervix is closed. Estimated cervical length is approximately 5.1 cm. There is no evidence of previa. IMPRESSION: UNREMARKABLE CLOSED CERVIX. Impression dictated by: Danni Cash M.D. 07/08/2025 8:12 AM Dictation Location: [place] [address] Electronically authenticated by: [id number] Y Date: 07/08/2025 08:12
--- NOTE | 2025-07-07 13:56 | US_ITS ---
The [address] [address] Patient Name: VERN DUONG MRN: [id number] date: 2000 Sex: F Assigned Patient Location: Current Patient Location: Accession/Order Number: [id number] Exam Date: 07/07/2025 13:57 Report Date: 07/08/2025 08:12 At the request of: TATIANA KAISER Procedure: US OB cervical length CLINICAL DATA: Anatomy survey COMPARISON: 05/12/2025 ULTRASOUND OB ANATOMY There is a single live intrauterine gestation in breech presentation. There is cardiac and somatic activity with heart rate of 146 bpm. The amniotic fluid volume is subjectively normal. The placenta is anterior and fundal and unremarkable in appearance and position. The neural axis and all 4 extremities were surveyed by the buckle coverer and no abnormalities were detected. The stomach, bladder, kidneys, four-chamber heart with right and left ventricular outflow tracts, diaphragm, facial features and male gender are visualized. An echogenic focus is visualized within the left ventricle. This can be a normal variant. The following measurements were obtained: Biparietal diameter 4.9 cm 20 weeks 5 days 33% Head circumference 19.0 cm 21 weeks 2 days 44% Abdominal circumference 16.2 cm 21 weeks 2 days 47% Femur length 3.1 cm 19 weeks 3 days 4% The composite ultrasound age based these measurements is 20 weeks 5 days +/- 1 week 3 days. The estimated date of delivery is 11/19/2025. Estimated weight is 13 ounces +/- 2 ounces (17%) US/US OB cervical length IMPRESSION: SINGLE LIVE INTRAUTERINE GESTATION WITH ULTRASOUND AGE OF 20 WEEKS 5 DAYS. UNREMARKABLE ANATOMY SURVEY. ULTRASOUND OB CERVICAL LENGTH The cervical length was measured with the transvaginal probe. The cervix is closed. Estimated cervical length is approximately 5.1 cm. There is no evidence of previa. IMPRESSION: UNREMARKABLE CLOSED CERVIX. Impression dictated by: Danni Cash M.D. 07/08/2025 8:12 AM Dictation Location: [place] [address] Electronically authenticated by: [id number] Y Date: 07/08/2025 08:12
--- OUTSIDE RECORDS SUMMARY | 2025-07-07 14:02 | XMS_ITS | CCD ---
Author Organization [facility] Care Team Providers Care Cable Splicer Helper Name Role Phone Pcp, None Primary Care Provider UnavailBRENDAN Lerma Attending Unavailable BRENDAN PEREZ Referring Unavailable PCP, NONE Primary Care Unavailable BELLE COHOA Attending Unavailable BEAU BELLE Referring Unavailable PCP, NONE Primary Care Unavailable PCP, NONE Primary Care Unavailable CONCHITA CARRION Attending Unavailable CONCHITA CARRION Admitting Unavailable BEAU BELLE Attending Unavailable BEAU BELLE Referring Unavailable PCP, NONE Primary Care Unavailable BEAU BELLE Admitting Unavailable Unavailable Primary Care Provider Unavailvik e NON STAFF Primary Care Provider UnavailOctavio Lion MD Attending Provider Zoila Manzo DO Attending Provider Zoila Manzo Attending Unavailable Zoila Manzo Admitting Unavailable Octavio Martinez Attending Unavailab le Octavio Martinez Admitting Unavailab le NON STAFF Primary Care Unavailable TATIANA ALCARAZ Attending Unavailable Allergies Allergy Classification Reported Allergen(s) Allergy Type Date of Onset Reaction(s) Facility (7 sources) Other Propensity to adverse reactions 6 [...] / codeine phosphate 30 mg oral tablet (7 sources) Opioid Agonist Start: 02-12-2025 take 1 [...] oral solution (3 sources) alpha-Adrenergic Agonist, Uncompetitive S-kccdeq-A-aspart ate Receptor Antagonist, Sigma-1 Agonist Start: 02-04-2022 [...] Vit-Fe Fumarate-FA ( Vitamins) 28-0.8 MG tablet (7 sources) Start: 05-08-2025 End: 05-08-2026 take 1 tablet by mouth once daily Vit-Fe Fumarate-FA ( Vitamins) 28-0.8 MG tablet Indications: Positive urine test ([facility]) Take 1 tablet by mouth Daily 30 [...] Name Value Interpretation Reference Range Facil ity IGP,APTIMA HPV,AGE GDLNon AGE GDLN ACOG TESTING Note . [facility] Comment on above: TESTS RESULT FLAG UN ITS REF RANGE LAB Clinician Provided Cytology Information Source.............[facility] Other.............. No. of containers..01 ThinPrep Vial Age Algo ACOG Ebony... -30 10 FLAG LEGEND: L-Low Normal,H-High Normal,LL-Alert Low,HH-Alert High <-Panic Low,>-Panic High,A-Abnormal,AA-Critical Abnormal Performed at: 01 =G [address] [place] [address] Naima Shannon MD, IGP, RFX APTIMA HPV ASCU Note . [facility] Comment on above: TESTS RESULT FLAG U NITS REF RANGE LAB DIAGNOSIS: 02 NEGATIVE FOR INTRAEPITHELIAL LESION OR MALIGNANCY. Specimen adequacy: 02 Satisfactory for evaluation. Endocervical and/or squamous metaplastic cells (endocervical component) are present. Performed by: 02 Marianna Mondragon Bow Making Machine Operator ([facility]) . 02 Note: Note 02 The Pap smear is a screening test designed to aid in the detection of premalignant and malignant conditions of the uterine cervix. It is not a diagnostic procedure and should not be used as the sole means of detecting cervical cancer. Both false-positive and false-negative reports do occur. Test Methodology: Note 02 This liquid based ThinPrep(R) pap test was screened with the use of an image guided system. . 02 The HPV DNA reflex criteria were not met with this specimen result therefore, no HPV testing was performed. FLAG LEGEND: L-Low Normal,H-High Normal,LL-Alert Low,HH-Alert High <-Panic Low,>-Panic High,A-Abnormal,AA-Critical Abnormal Performed at: 02 [facility] [address] [address] Naima Shannon MD, Performed at: =G - [facility] [address] [id number] Travel Assistant: Naima Shannon MD, Phone: [phone] Performed at: [address] [id number] Travel Assistant: Naima Shannon MD, Phone: [phone] [facility] RECURRENT VAGINITIS (HTRX)on 06-10-2025 ATOPOBIUM VAGINAE 29.974 Abnormal [facility] ATOPOBIUM VAGINAE Detected Abnormal [facility] BVAB 2,3 (BACTERIAL VAGINOSIS ASSOCIATED BACTERIA 2, 3); MOBILUNCUS SPP 0 [facility] BVAB 2,3 (BACTERIAL VAGINOSIS ASSOCIATED BACTERIA 2, 3); MOBILUNCUS SPP Not detected [facility] PABLO ALBICANS, PARAPSILOSIS, TROPICALIS 0 [facility] PABLO ALBICANS, PARAPSILOSIS, TROPICALIS Not detected [facility] PABLO GLABRATA 0 [facility] PABLO GLABRATA Not detected [facility] PABLO KRUSEI 0 [facility] Healthcare PABLO KRUSEI Not detected [facility] CHLAMYDIA TRACHOMATIS 0 [facility] CHLAMYDIA TRACHOMATIS Not detected N S [facility] ERMB, C; MEFA 25.073 Abnormal [facility] Healthcare ERMB, C; MEFA Detected Abnormal [facility] GARDNERELLA VAGINALIS 23.45 Abnormal [facility] GARDNERELLA VAGINALIS Detected Abnormal [facility] Healthcare Interpretation and review of laboratory results Abnormal [facility] MEGASPHAERA (TYPES 1, 2) 0 [facility] MEGASPHAERA (TYPES 1, 2) Not detected [facility] MYCOPLASMA GENITALIUM 0 [facility] MYCOPLASMA GENITALIUM Not detected N [facility] NEISSERIA GONORRHOEAE 0 [facility] NEISSERIA GONORRHOEAE Not detected N [facility] TET B, TET M 24.604 Abnormal [facility] TET B, TET M Detected Abnormal [facility] TRICHOMONAS VAGINALIS 0 [facility] TRICHOMONAS VAGINALIS Not detected N [facility] Urinalysis macro (dipstick) panel (U)on 06-09-2025 Bilirubin, UA Negative Negative - 4(70) +++ mg/dL [facility] Blood, UA Negative Negative - 50 Obey/mcL [facility] Clarity, UA Clear [facility] Color, UA Yellow [facility] Glucose, UA Negative Negative - 2000(110) ++++ mg/dL [facility] Interpretation and review of laboratory results Normal [facility] Ketones, UA Negative Negative - 160(16) ++++ mg/dL [facility] Leukocytes, UA Negative Negative - 500+++ Hai/mcL [facility] Nitrite, UA Negative Negative - Positive [facility] pH, UA 8 5 - 9 [facility] Protein, UA Negative Negative - 1999(20) ++++ mg/dL [facility] Spec Grav, UA 1.01 1 - 1.03 [facility] Urobilinogen, UA 1.0 0.2 - 12 mg/dL [facility] BOX TESTon 05-08-2025 BOX TEST SENT OUT [employer] [facility] [address] [facility] [address] 05/08/25 [facility] HCG ( test) Ql (U)o n 05-08-2025 Interpretation and review of laboratory results Abnormal [facility] Preg Test, Ur Positive Negative [facility] US OB TRANSVAGINALon 025 US OB TRANSVAGINAL [...] UA Negative Negative - 4(70) +++ mg/dL [facility] Blood, UA Positive Negative - 50 Obey/mcL [facility] Clarity, UA Clear [facility] Color, UA Miriam [facility] Glucose, UA Negative Negative - 1999(110) ++++ mg/dL [facility] Interpretation and review of laboratory results Abnormal [facility] Ketones, UA Negative Negative - 160(16) ++++ mg/dL [facility] Leukocytes, UA Negative Negative - 500+++ Hai/mcL [facility] Nitrite, UA Negative Negative - Positive [facility] pH, UA 6 5 - 9 [facility] Protein, UA Negative Negative - 2000(20) ++++ mg/dL [facility] Spec Grav, UA 1.025 1 - 1.03 [facility] Urobilinogen, UA 1.0 0.2 - 12 mg/dL [facility] ALL CBC WITH AUTO DIFFon BASOPHILS ABSOLUTE AUTO 0 N [facility] Basophils/100 WBC (Bld) 0.4 % 0.2 - 2.0 % [facility] Eosinophils/100 WBC (Bld) 1.5 % 0.9 - 7.0 % [facility] Erythrocyte distribution width (RBC) [Ratio] 12.9 % 11.0 - 15.0 % [facility] Hematocrit (Bld) [Volume fraction] 33.3 % Low 36.0 - 48.0 % [facility] Hemoglobin (Bld) [Mass/Vol] 11.4 g/dL Low 12.0 - 16.0 g/dL [facility] IMMATURE GRANULOCYTES ABS AUTO 0.02 [facility] Immature granulocytes/100 WBC (Bld) 0.4 % 0.0 - 0.5 % [facility] Interpretation and review of laboratory results Abnormal [facility] LYMPHOCYTES ABSOLUTE AUTO 1.7 [facility] Lymphocytes/100 WBC (Bld) 30.7 % 20.5 - 60.0 % [facility] MCH (RBC) [Entitic mass] 30.6 pg 26.7 - 34.0 pg [facility] MCHC (RBC) [Mass/Vol] 34.2 g/dL 29.9 - 35.2 g/dL [facility] MCV (RBC) [Entitic vol] 89.5 fL 81.0 - 99.0 fL [facility] MONOCYTES ABSOLUTE AUTO 0.4 N [facility] Monocytes/100 WBC (Bld) 7.3 % 1.7 - 12.0 % [facility] NEUTROPHILS ABSOLUTE AUTO 3.3 [facility] Neutrophils/100 WBC (Bld) 59.7 % 43.0 - 75.0 % [facility] Platelet mean volume (Bld) [Entitic vol] 9.9 fL 9.5 - 13.5 fL [facility] TBH EO # 0.1 [facility] PLT 187 [facility] RBC 3.72 Low [facility] WBC 5.5 [facility] ALL TYPE AND SCREENon 2024 ABO and Rh group Nom (Bld) Blood group O Rh(D) positive [facility] , [facility] US OB TRANSVAGINALon 025 US OB TRANSVAGINAL [...] II, MD, PHD at 16-Jan-2025 01:26:48 PM [facility] [employer] Normal Not Available Comment on above: Order Comment: US OB VIABILITY PLEASE PERFORM TRANSVAGINAL ULTRASOUND IF INDICATED No LMP recorded. Urine Cultureon 01-15-2025 Bacteria identified Cx Nom (U) >100,000 colonies/ml mixed bacterial skin contaminants 2 Days PERFORMED BY: [facility] [address] [place] [address] PATHOLOGIST COTTON OPENER ANGELIC LESLIE M.D. Normal [facility] Comment on above: Performed By: #### C UU #### [facility] [address] [id number] [facility] US OB TRANSVAGINALon 025 US OB TRANSVAGINAL [...] II, MD, PHD at 13-Jan-2025 11:46:49 PM [facility] Normal Not Available Comment on above: Order Comment: US OB TRANSVAGINAL No LMP recorded. STREP A MOLECULARon 02-08-20 23 STREP A MOLECULAR Negative Normal Negative [facility] Comment on above: Performed By: #### 3 [id number] #### [facility] [address] [place] [address] Strep AOrdered By: Khloe Kaminski on 02-06-2023 Streptococcus.beta-hemo lytic Org specific cx Ql (Unsp spec) Negative Negative [facility] Streptococcus.beta-hemolytic Org specific cx Ql (Unsp spec)Ordered By: Khloe Kaminski on 02-06-2023 Interpretation and review of laboratory results Normal [facility] GCon 06-17-2022 CHLAMYDIA AMPLIFIED PROBE Negative Normal Negative [facility] Comment on above: Performed By: #### [id number] #### [place] [address] GC AMPLIFIED PROBE Negative Normal Negative [facility] Comment on above: Performed By: #### [id number] #### [place] [address] GCon 06-16-2022 CHLAMYDIA SOURCE ThinPrep Normal [facility] Comment on above: Performed By: #### 4 [id number] #### [place] [address] GC SOURCE ThinPrep Normal [facility] Comment on above: Performed By: #### 4 [id number] #### [place] [address] US Breast - left limitedon 0 10-15-2021 [...] Clinical Follow-Up BI-RADS: ACR BI-RADS 1: Negative [facility] Radiology Study observation (narrative) [facility] US Breast - left limitedOrde red By: Dimas Patel on 10-15-2021 [facility] [employer] Work Phone: CBC without differentialOrde red By: Tatiana Lewis on 03-23-2021 Erythrocyte distribution width (RBC) [Ratio] 13.9 % 11.5 - 14.5 % [facility] Hematocrit (Bld) [Volume fraction] 28.6 % Low 33.6 - 46.8 % [facility] Hemoglobin (Bld) [Mass/Vol] 9.1 g/dL Low 11.7 - 15.8 g/dL [facility] Interpretation and review of laboratory results Abnormal [facility] MCH (RBC) [Entitic mass] 28.4 pg 27.5 - 32.3 pg [facility] MCHC (RBC) [Mass/Vol] 31.8 g/dL 30.7 - 35.5 g/dl [facility] MCV (RBC) [Entitic vol] 89.4 fL 80.2 - 99.0 fL [facility] Platelets (Bld) [#/Vol] 196.0 10*3/uL [facility] RBC (Bld) [#/Vol] 3.20 10*6/uL Low [facility] WBC LM Ql (Sput) 11.3 High [facility] BUPRENORPHINE SCRN, UR, REFL EX QUANTOrdered By: Tatiana Lewis on 03-22-2021 Buprenorphine Screen, UR Not detected CUTOFF <10 ng/mL [facility] Tox Message see below [facility] Comment on above: Notes: 1. SCREENING RESULTS SHOULD BE CONSIDERED PRESUMPTIVE UNLESS THE PRESENCE OF THE ANALYTE HAS BEEN CONFIRMED BY A REFERENCE LAB. 2. ALL DRUG GROUPS ARE ANALYZED ON URINE. [facility] CBCOrdered By: Tatiana ambriz on 03-22-2021 Erythrocyte distribution width (RBC) [Ratio] 13.4 % 11.5 - 14.5 % [facility] Hematocrit (Bld) [Volume fraction] 35.4 % 33.6 - 46.8 % [facility] Hemoglobin (Bld) [Mass/Vol] 11.9 g/dL 11.7 - 15.8 g/dL [facility] Interpretation and review of laboratory results Abnormal [facility] MCH (RBC) [Entitic mass] 28.3 pg 27.5 - 32.3 pg [facility] MCHC (RBC) [Mass/Vol] 33.6 g/dL 30.7 - 35.5 g/dl [facility] MCV (RBC) [Entitic vol] 84.1 fL 80.2 - 99.0 fL [facility] Platelets (Bld) [#/Vol] 246.0 10*3/uL [facility] RBC (Bld) [#/Vol] 4.21 10*6/uL [facility] WBC LM Ql (Sput) 11.9 High [facility] Syphilis Treponema AntibodyO rdered By: Tatiana Lewis on 03-22-2021 Syphilis Treponema Antibody Non-Reactive Nonreactive [facility] Toxicology screen, urineOrde red By: Tatiana Lewis on 03-22-2021 Amphetamines Screen method >1000 ng/mL Ql (U) Not detected CUTOFF <1000 ng/mL [facility] Barbiturates Screen method >200 ng/mL Ql (U) Not detected CUTOFF <200 ng/mL [facility] Benzodiazepines Ql (U) Not detected CUTOF F <200 ng/mL [facility] Benzoylecgonine Screen (U) [Mass/Vol] Not detected CUTOFF <300 ng/mL [facility] Cannabinoids Screen method >50 ng/mL Ql (U) Not detected CUTOFF <50 ng/mL [facility] Fentanyl Not detected CUTOFF 1.0 ng/mL [facility] Opiates Screen (U) [Mass/Vol] Not detected CUTOFF <300 ng/mL [facility] Phencyclidine (U) [Mass/Vol] Not detected CUTOFF <25 ng/mL [facility] Tox Message see below [facility] Comment on above: Notes: 1. SCREENING RESULTS SHOULD BE CONSIDERED PRESUMPTIVE UNLESS THE PRESENCE OF THE ANALYTE HAS BEEN CONFIRMED BY A REFERENCE LAB. 2. ALL DRUG GROUPS ARE ANALYZED ON URINE. [facility] Type and ScreenOrdered By: Cristina Lewis on 03-22-2021 ABO and Rh group Nom (Bld) Blood group O Rh(D) positive [facility] Blood group antibody screen.cells I+II+III Ql Negative [facility] Fern test, vaginal fluidOrde red By: Stacy Alonso on 03-02-2021 Fern Test NONE SEEN NONE SEEN [facility] CBCon 01-05-2021 Erythrocyte distribution width (RBC) [Ratio] 13.4 % 11.5 - 14.5 % [facility] Hematocrit (Bld) [Volume fraction] 34.0 % 33.6 - 46.8 % [facility] Hemoglobin (Bld) [Mass/Vol] 11.2 g/dL Low 11.7 - 15.8 g/dL [facility] Interpretation and review of laboratory results Abnormal [facility] MCH (RBC) [Entitic mass] 29.2 pg 27.5 - 32.3 pg [facility] MCHC (RBC) [Mass/Vol] 32.9 g/dL 30.7 - 35.5 g/dl [facility] MCV (RBC) [Entitic vol] 88.8 fL 80.2 - 99 fL [facility] Platelets (Bld) [#/Vol] 244.0 10*3/uL [facility] RBC (Bld) [#/Vol] 3.83 10*6/uL [facility] WBC LM Ql (Sput) 10.9 High [facility] Glucose tolerance, 1 houron 01-05-2021 Glucose 1 Hr post 50 g glucose PO [Mass/Vol] 83 mg/dL [facility] Comment on above: REFERENCE-GLUCOSE 1 HR WITH DEXTROSE Values >140 mg/dL constitute a positive screen [facility] Syphilis Treponema Antibody (RPR)on 01-05-2021 Syphilis Treponema Antibody Nonreactive Nonreactive [facility] Comprehensive metabolic pane l aka [facility] 11-26-2020 Albumin [Mass/Vol] 3.7 g/dL 3.5 - 5 g/dL [facility] Alk Phos 78 U/L 24 - 126 U/L [facility] ALT [Catalytic activity/Vol] 12 U/L 4 - 35 U/L [facility] AST [Catalytic activity/Vol] 19 U/L 3 - 47 U/L [facility] Bilirubin [Mass/Vol] 0.6 mg/dL 0.2 - 1.6 mg/dL [facility] Calcium [Mass/Vol] 9.5 mg/dL 8.4 - 10. 4 mg/dL [facility] Chloride [Moles/Vol] 105 mmol/L 96 - 109 mmol/L [facility] CO2 [Moles/Vol] 21 mmol/L Low 22 - 30 mmol/L [facility] Comprehensive metabolic 2000 panel 0.46 mg/dL Low 0.52 - 1.04 mg/dL [facility] Glucose [Mass/Vol] 87 mg/dL 65 - 100 mg/dL [facility] Interpretation and review of laboratory results Abnormal [facility] Potassium [Moles/Vol] 4.2 mmol/L 3.6 - 5.1 mmol/L [facility] Protein [Mass/Vol] 6.8 g/dL 6.3 - 8.2 g/dL [facility] Sodium [Moles/Vol] 133 mmol/L Low 135 - 147 mmol/L [facility] Urea nitrogen [Mass/Vol] 7 mg/dL Low 8 - 20 mg/dL [facility] GLOMERULAR FILTRATION RATEon 11-26-2020 GFR/1.73 sq M.predicted MDRD (S/P/Bld) [Vol rate/Area] mL/min/{1.73_m2} [facility] Comment on above: To estimate the GFR [...] fraction] 4.3 % 0 - 6 % [facility] Comment on above: Reference Interval f or %A1c %A1c (NGSP) Interpretation <6.0% Non-Diabetic Range >6.5% Action Suggested . Hepatitis C antibodyon 11-26 HCV Ab Qn (S) Nonreactive Nonreactive [employer] [facility] LDH SERUMon 11-26-2020 LDH Pyruvate to lactate reaction [Catalytic activity/Vol] 513 U/L 308 - 626 U/L [facility] Otheron 11-26-2020 [facility] Type & Screen (must order with either panel)on 11-26-2020 ABO and Rh group Nom (Bld) O POS [facility] Blood group antibody screen.cells I+II+III Ql Negative [facility] Protein / creatinine ratio, urineon 11-26-2020 Protein (U) [Mass/Vol] 10 mg/dL 0 - 12 mg/dL [facility] Protein/Creatinine (U) [Mass ratio] 0.1 [facility] Ur Cre-Random 118.20 mg/dL NO NORMALS [facility] Uric acidon 11-26-2020 Urate [Mass/Vol] 3.0 mg/dL 2 - 7 mg/dL [facility] Vital Signs Date Time Vital Sign Value Performing Clinician Facility 06-09-2025 10:59-0400 Body weight 75.66 kg Tatiana Alcaraz NP Work Phone: [facility] 06-09-2025 10:59-0400 Diastolic blood pressure 68 mm[Hg] Tatiana Alcaraz NP Work Phone: [facility] 06-09-2025 10:59-0400 Systolic blood pressure 118 mm[Hg] Tatiana Alcaraz NP Work Phone: [facility] 05-08-2025 13:21-0400 Body weight 74.66 kg [facility] 05-08-2025 13:21-0400 Diastolic blood pressure 70 mm[Hg] [facility] 05-08-2025 13:21-0400 Systolic blood pressure 120 mm[Hg] [facility] 02-07-2023 04:32-0400 Diastolic blood pressure 65 mm[Hg] Conchita Bomsta DO Work Phone: [facility] 02-07-2023 04:32-0400 Heart rate 69 /min Conchita Bomsta DO Work Phone: [facility] 02-07-2023 04:32-0400 Respiratory rate 18 /min Conchita Bomsta DO Work Phone: [facility] 02-07-2023 04:32-0400 SaO2% (BldA) [Mass fraction] 99 % Conchita Bota DO Work Phone: [facility] 02-07-2023 04:32-0400 Systolic blood pressure 114 mm[Hg] Conchita Bomsta DO Work Phone: [facility] 02-06-2023 23:14-0400 Body height 167.6 cm Conchita Bota DO Work Phone: [facility] 02-06-2023 23:14-0400 Body mass index (BMI) [Ratio] 34.7 kg/m2 Conchita Bota DO Work Phone: [facility] 02-06-2023 23:14-0400 Body temperature 98.91 [degF] Conchita Brownta DO Work Phone: [facility] 02-06-2023 23:14-0400 Body weight 97.52 kg Conchita Brownta DO Work Phone: [facility] 03-24-2021 08:00-0400 Body temperature 98.29 [degF] Tatiana Lewis MD Work Phone: [facility] 03-24-2021 08:00-0400 Diastolic blood pressure 55 mm[Hg] Tatiana Lewis MD Work Phone: [facility] 03-24-2021 08:00-0400 Heart rate 76 /min Tatiana Lewis MD Work Phone: [facility] 03-24-2021 08:00-0400 Respiratory rate 16 /min Tatiana Lewis MD Work Phone: [facility] 03-24-2021 08:00-0400 Systolic blood pressure 115 mm[Hg] Tatiana Lewis MD Work Phone: [facility] 03-24-2021 04:00-0400 SaO2% (BldA) [Mass fraction] 97 % Tatiana Lewis MD Work Phone: [facility] 03-21-2021 20:37-0400 Body height 167.6 cm Tatiana Lewis MD Work Phone: [facility] 03-21-2021 20:37-0400 Body mass index (BMI) [Ratio] 39.71 kg/m2 Tatiana Lewis MD Work Phone: [facility] 03-21-2021 20:37-0400 Body weight 111.58 kg Tatiana Lewis MD Work Phone: 7(539)[phone] [address] 03-06-2021 21:50-0400 Diastolic blood pressure 57 mm[Hg] Stacy Alonso MD Work Phone: 2(147)589-979767 [address] 03-06-2021 21:50-0400 Heart rate 77 /min Stacy Alonso MD Work Phone: 1(466)138-777467 [address] 03-06-2021 21:50-0400 Systolic blood pressure 120 mm[Hg] Stacy Alonso MD Work Phone: 5(269)[phone] [address] 03-06-2021 20:50-0400 Body height 167.6 cm Stacy Alonso MD Work Phone: 2([phone])[phone] [address] 03-06-2021 20:50-0400 Body mass index (BMI) [Ratio] 38.58 kg/m2 Stacy Alonso MD Work Phone: [facility] 03-06-2021 20:50-0400 Body weight 108.41 kg Stacy Alonso MD Work Phone: 7([phone])[phone] [address] 03-06-2021 20:50-0400 Respiratory rate 20 /min Stacy Alonso MD Work Phone: [facility] 03-06-2021 20:48-0400 Body temperature 98.01 [degF] Stacy Alonso MD Work Phone: [facility] 03-02-2021 02:04-0400 Diastolic blood pressure 69 mm[Hg] Stacy Alonso MD Work Phone: [facility] 03-02-2021 02:04-0400 Heart rate 88 /min Stacy Alonso MD Work Phone: [facility] 03-02-2021 02:04-0400 Systolic blood pressure 131 mm[Hg] Stacy Alonso MD Work Phone: [facility] 03-02-2021 01:37-0400 Body height 167.6 cm Stacy Alonso MD Work Phone: [facility] 03-02-2021 01:37-0400 Body mass index (BMI) [Ratio] 38.41 kg/m2 Stacy Alonso MD Work Phone: [phone] [address] 03-02-2021 01:37-0400 Body temperature 98.91 [degF] Stacy Alonso MD Work Phone: [facility] 03-02-2021 01:37-0400 Body weight 107.96 kg Stacy Alonso MD Work Phone: [facility] 03-02-2021 01:37-0400 Respiratory rate 20 /min Stacy Alonso MD Work Phone: [facility] 02-03-2021 21:58-0400 Diastolic blood pressure 77 mm[Hg] Stacy Alonso MD Work Phone: [facility] 02-03-2021 21:58-0400 Heart rate 91 /min Stacy Alonso MD Work Phone: [facility] 02-03-2021 21:58-0400 Respiratory rate 18 /min Stacy Alonso MD Work Phone: [facility] 02-03-2021 21:58-0400 Systolic blood pressure 128 mm[Hg] Stacy Alonso MD Work Phone: [facility] 08-14-2020 09:19-0500 Body Temperature 98.49 [degF] Aliya Cao [facility] 08-14-2020 06:50-0500 BMI (Body Mass Index) 32.28 kg/m2 Aliya Cao [facility] 08-14-2020 06:50-0500 Body weight 90.72 kg Aliya Cao [facility] 08-14-2020 06:50-0500 BP Diastolic 74 mm[Hg] Aliya Cao [facility] 08-14-2020 06:50-0500 BP Systolic 135 mm[Hg] Aliya Cao [facility] 08-14-2020 06:50-0500 Height 167.6 cm Aliya Cao [facility] 08-14-2020 06:50-0500 Pulse (Heart Rate) 82 /min Aliya [facility] 08-14-2020 06:50-0500 Pulse Oximetry 99 % [facility] 08-14-2020 06:50-0500 Respiratory Rate 18 /min [facility] Encounters Encounter Date Encounter Type Care Provider Facility Start: 06-09-2025 End: 06-09-2025 Bamboo flowsheet Tatiana Alcaraz SENIOR TAX ACCOUNTANT Work Phone: [facility] Start: 06-09-2025 End: 06-11-2025 Bamboo flowsheet Tatiana Alcaraz SENIOR TAX ACCOUNTANT Work Phone: [facility] Start: 06-09-2025 End: 06-11-2025 Clinisync Result Encounter Tatiana Alcaraz NP Work Phone: [facility] External Department Unsolicited Start: 06-09-2025 End: 06-10-2025 External Result Encounter Tatiana Alcaraz SENIOR TAX ACCOUNTANT Work Phone: [facility] Unsolicited Start: 06-09-2025 End: 06-09-2025 ambulatory TATIANA ALCARAZ Not Available Start: 06-09-2025 End: 06-09-2025 Office outpatient visit 15 minutes Tatiana Alcaraz SENIOR TAX ACCOUNTANT Work Phone: [facility] Comment on above: 17 weeks gestation o f ([facility]); Second trimester ([facility]); Screening, , for anatomic survey ([facility]); Exposure to STD; Vaginal discharge; Well woman exam with routine gynecological exam Start: 06-09-2025 End: 06-09-2025 Patient encounter procedure Tatiana Alcaraz SENIOR TAX ACCOUNTANT Work Phone: [facility] Start: 05-08-2025 End: 05-08-2025 Clinisync Result Encounter Robi Marcelo DO Work Phone: [facility] Unsolicited Start: 05-08-2025 End: 05-08-2025 Clinisync Result Encounter Robi Marcelo DO Work Phone: [facility] Unsolicited Start: 05-08-2025 End: 05-08-2025 ambulatory TATIANA JOB Not Available Start: 05-08-2025 End: 05-08-2025 Office outpatient visit 5 minutes Marcelo Nurse [facility] Comment on above: GA: 12w4d Start: 05-08-2025 End: 05-08-2025 ambulatory TATIANA DURANTERLY Not Available Start: 04-09-2025 ambulatory Octavio Epperson acility:[facility] Start: 01-24-2025 End: 01-24-2025 Clinisync Result [...] Department Unsolicited Start: 01-16-2025 End: 01-16-2025 ambulatory TATIANA JOB Not Available Start: 01-15-2025 End: 01-15-2025 ambulatory NON STAFF [facility] Work Phone: Start: 01-15-2025 End: 01-15-2025 Departed Referred [facility] Start: 01-10-2025 End: 01-10-2025 ambulatory TATIANA ALCARAZ Not Available Start: 12-27-2024 Registered Recurring Fi [facility] Credible Start: 02-07-2023 End: 02-07-2023 Emergency department patient visit NONE PCP [facility] Start: 02-07-2023 End: 02-07-2023 Emergency department patient visit Conchita D Gabbi DO Work Phone: [facility] Comment on above: Sore throat (Primary Dx) Start: 06-20-2022 ambulatory BRENDAN GAYLEEARLENE [facility] Start: 06-14-2022 End: 06-14-2022 ambulatory [facility] Start: 06-14-2022 Encounter for gynecological examination (general) (routine) without abnormal findings [facility] Start: 06-14-2022 End: 06-15-2022 ambulatory [facility] Start: 02-06-2022 End: 02-06-2022 Subsequent hospital visit by physician Paulo Upton DO Work Phone: [facility] Start: 02-04-2022 End: 02-04-2022 Subsequent hospital visit by physician Kym Gutierrez APRN SUPERVISOR HISTOLOGY Work Phone: [facility] Comment on above: URI with cough and c ongestion Start: 10-15-2021 End: 10-15-2021 Subsequent hospital visit by physician Marianna Abbasi APRN SUPERVISOR HISTOLOGY Work Phone: [facility] Comment on above: Breast pain, left Start: 06-08-2021 End: 06-08-2021 Subsequent hospital visit by physician Job Fitzgerald MD Work Phone: [facility] Start: 03-21-2021 End: 03-24-2021 Evaluation and management of inpatient Tatiana Lewis MD Work Phone: [facility] Comment on above: Encounter for induct ion of labor (Primary Dx) Start: 03-06-2021 End: 03-06-2021 Subsequent hospital visit by physician Stacy Alonso MD Work Phone: [facility] [place] Start: 03-02-2021 End: 03-02-2021 Subsequent hospital visit by physician Stacy Alonso MD Work Phone: [facility] [place] Start: 02-24-2021 End: 02-24-2021 Subsequent hospital visit by physician Nicole Rodarte DO Work Phone: [facility] Comment on above: 36 weeks gestation o f ; Chlamydia trachomatis infection in mother during second trimester of Start: 02-03-2021 End: 02-03-2021 Subsequent hospital visit by physician Stacy Alonso MD Work Phone: [facility] [place] Start: 01-05-2021 End: 01-05-2021 Subsequent hospital visit by physician Nicole Rodarte Work Phone: [facility] Comment on above: 27 weeks gestation o f Start: 12-21-2020 End: 12-21-2020 Subsequent hospital visit by physician Nicole Rodarte Work Phone: [facility] Comment on above: 27 weeks gestation o f ; Chlamydia trachomatis infection in mother during second trimester of Start: 11-26-2020 End: 11-26-2020 Subsequent hospital visit by physician Nicole Rodarte Work Phone: [facility] Comment on above: Late care a ffecting in second trimester Start: 11-26-2020 End: 11-26-2020 Subsequent hospital visit by physician Nicole Rodarte Work Phone: [facility] Comment on above: Late care a ffecting in second trimester; History of low potassium; Elevated blood pressure reading Start: 08-14-2020 End: 08-14-2020 Emergency department patient visit Aliya Amatoe Work Phone: [facility] Comment on above: Pain, dental (Primar y Dx); Jaw swelling Procedures Date Procedure Procedure Detail Performing Clinician Start: 06-09-2025 RECURRENT VAGINITIS (HTRX) Tatiana Alcaraz SENIOR TAX ACCOUNTANT Work Phone: Start: 06-09-2025 Urnls dip stick/tabl et rgnt non-auto w/o micrscp Tatiana Alcaraz SENIOR TAX ACCOUNTANT Work Phone: Start: 06-09-2025 IGP,APTIMA HPV,AGE GDLN Tatiana Alcaraz SENIOR TAX ACCOUNTANT Work Phone: Start: 05-08-2025 BOX TEST Robi [...] streptococcus group a amplified probe tq Conchita Deyliza DO Work Phone: Start: 06-14-2022 Microscopic observat ion [Identifier] in Cervix by Cyto stain Conchita Carrion DO Work Phone: Start: 10-15-2021 Us breast uni real t duane with image limited Marianna Abbasi APRN SUPERVISOR HISTOLOGY Work Phone: Start: 03-23-2021 Blood count complete automated Tatiana Lewis MD Work Phone: Start: 03-22-2021 BUPRENORPHINE SCRN, UR, REFLEX QUANT Tatiana Lewis MD Work Phone: Start: 03-22-2021 Drug tst prsmv instr mnt chem analyzers pr date Tatiana Lewis MD Work Phone: Start: 03-22-2021 Antibody treponema pallidum Tatiana Lewis MD Work Phone: Start: 03-22-2021 Blood count complete automated Tatiana Lewis MD Work Phone: Start: 03-22-2021 TYPE [...] DTAP/TDAP/TD VACCINE (2 - Td or Tdap) [facility] Start: 03-04-2031 Diphtheria + pertuss is + tetanus vaccine (product) DTAP/TDAP/TD VACCINE (2 - Td or Tdap) [facility] Start: 07-07-2025 End: 07-07-2025 Patient encounter procedure 07/07/2025 2:00 PM EDT Routine [facility] [address] [place] [address] Tatiana Alcaraz, LEE [address] [place] [address] [facility] Start: 07-07-2025 End: 07-07-2025 Professional / ancillary services management 07/07/2025 1:00 PM EDT Ancillary Procedure YANELI [facility] [address] [place] [address] [facility] [place] [facility] Start: 06-14-2025 Screening for malign ant neoplasm of cervix PAP SMEAR [facility] Start: 06-09-2025 End: 07-09-2025 Alpha fetoprotein, maternal Alpha fetoprotein, maternal Lab Routine 17 weeks gestation of ([facility]) Second trimester ([facility]) Expected: 06/09/2025 (Approximate), Expires: 07/09/2025 [facility] Comment on above: Expected: 06/09/2025 (Approximate), Expires: 07/09/2025 Start: 06-09-2025 End: 09-08-2025 US for US OB 14+ weeks anatomy scan Imaging Routine Screening, , for anatomic survey ([facility]) Expected: 06/09/2025, Expires: 09/08/2025 [facility] Comment on above: Expected: 06/09/2025 , Expires: 09/08/2025 Start: 06-09-2025 End: 06-09-2025 Patient encounter procedure 06/09/2025 10:40 AM EDT Routine YANELI [facility]HA[facility] [address] [place] [id number] Robi Robertson, DO [address] [place] [address] [facility] Start: 05-08-2025 End: 05-08-2026 ABO/Rh ABO/Rh Lab Routine Missed menses , unspecified gestational age ([facility]) Expected: 05/08/2025 (Approximate), Expires: 05/08/2026 [facility] Comment on above: Expected: 05/08/2025 (Approximate), Expires: 05/08/2026 Start: 05-08-2025 End: 05-08-2026 Blood type and Indirect antibody screen panel - Blood Type and screen Lab Routine Missed menses , unspecified [facility] Expected: 05/08/2025 (Approximate), Expires: 05/08/2026 [facility] Comment on above: Expected: 05/08/2025 (Approximate), Expires: 05/08/2026 Start: 05-08-2025 End: 05-08-2026 Drugs of abuse panel - Urine by Screen method Rapid drug screen, urine Lab Routine , unspecified gestational age ([facility]) Encounter for supervision of normal first in first trimester ([facility]) Expected: 05/08/2025 (Approximate), Expires: 05/08/2026 [facility] Comment on above: Expected: 05/08/2025 (Approximate), Expires: 05/08/2026 Start: 05-07-2025 End: 08-07-2025 US Pelvis transvaginal US OB transvaginal Imaging Routine Missed menses Positive urine test ([facility]) Expected: 05/07/2025, Expires: 08/07/2025 [facility] Work Phone: Comment on above: Expected: 05/07/2025 , Expires: 08/07/2025 Start: 01-30-2025 End: 01-30-2025 Patient encounter procedure 01/30/2025 10:50 AM EDT Office Visit [facility] [address] [place] [id number] Robi Robertson, DO [address] [place] [address] [place] [address] [facility] Start: 01-15-2025 Urine culture [facility] Start: 01-15-2025 Bacteria identified in Urine by Culture Urine Culture [facility] Start: 06-20-2023 End: 06-20-2023 Patient encounter procedure 06/20/2023 Office Visit Obstetrics and Gynecology Belle Ochoa APRN SUPERVISOR HISTOLOGY [address] [place] [address] [facility] Start: 06-15-2023 ANNUAL WELLNESS VISIT ANNUAL WELLNES S VISIT [facility] Start: 06-14-2023 CHLAMYDIA SCREENING CHLAMYDIA SCREEN [facility] Start: 06-02-2023 Influenza vaccinatio n given INFLUENZA VACCINE (Season Ended) [facility] Start: 06-02-2022 Influenza vaccinatio n given INFLUENZA VACCINE (Season Ended) [facility] Start: 05-25-2022 End: 05-25-2022 Patient encounter procedure 05/25/2022 Office Visit Obstetrics and Gynecology Belle Ochoa APRN SUPERVISOR HISTOLOGY [address] [place] [address] [facility] Start: 02-24-2022 CHLAMYDIA SCREENING CHLAMYDIA SCREEN [facility] Start: 12-21-2021 CHLAMYDIA SCREENING CHLAMYDIA SCREEN [facility] Start: 11-26-2021 CHLAMYDIA SCREENING CHLAMYDIA SCREEN [facility] Start: 10-18-2021 End: 10-18-2021 Patient encounter procedure 10/18/2021 Office Visit Dentistry Alka Adams, DDS [address] [place] [address] [facility] Start: 2021 Screening for malign ant neoplasm of cervix PAP SMEAR [facility] Start: 07-22-2021 End: 07-22-2021 Patient encounter procedure 07/22/2021 Office Visit Dentistry Alka Adams, DDS [address] [place] [address] [facility] Start: 06-02-2021 Influenza vaccinatio n given [facility] Start: 05-12-2021 End: 05-12-2021 ambulatory 05/12/2021 Visit Obstetrics and Gynecology Nicole Rodarte, DO [address] [place] [address] [phone] [facility] Start: 03-10-2021 End: 03-10-2021 Patient encounter procedure 03/10/2021 Routine Obstetrics and Gynecology Nicole Rodarte, DO [address] [place] [address] [facility] Start: 03-04-2021 End: 03-04-2021 Patient encounter procedure 03/04/2021 Routine Obstetrics and Gynecology Nicole Rodarte, DO [address] [place] [address] [phone] [facility] Start: 02-24-2021 End: 02-24-2021 Patient encounter procedure 02/24/2021 Routine Obstetrics and Gynecology Nicole Rodarte, DO [address] [place] [address] [phone] [facility] Start: 02-11-2021 End: 02-11-2021 Patient encounter procedure 02/11/2021 Routine Obstetrics and Gynecology Nicole Rodarte, DO [address] [place] [address] [facility] Start: 01-11-2021 End: 01-11-2021 Routine 01/11/2021 Routine Obstetrics and Gynecology Nicole Rodarte, DO [address] [place] [address] [phone] [facility]ECOLOG [facility] Start: 12-24-2020 End: 12-24-2020 Routine 12/24/2020 Routine Obstetrics and Gynecology Nicole Rodarte DO [address] [facility] [address] [place] [address] [phone] [facility]NECOLOG [facility] Start: 06-02-2020 Influenza vaccinatio n given INFLUENZA VACCINE (#1) [facility] Start: 2018 ANNUAL WELLNESS VISIT ANNUAL WELLNES S VISIT [facility] Start: 2016 CHLAMYDIA SCREENING CHLAMYDIA SCREEN ING [facility] Start: 2012 Adult depression screening assessment DEPRESSION SCREENING [facility] Start: 2012 Depression screening using PHQ-9 (Patient Health Questionnaire 9) score DEPRESSION SCREENING [facility] Start: 2011 Diphtheria + pertuss is + tetanus vaccine (product) DTAP/TDAP/TD VACCINE (1 - Tdap) [facility] Start: 2011 Human papilloma viru s vaccination given HPV VACCINES (GARDASIL) (1 - 2-dose series) [facility] Start: 2011 Vaccination for gabe n papillomavirus HPV VACCINES (GARDASIL) (1 - 2-dose series) [facility] Start: 2005 COVID-19 VACCINE (1) COVID-19 VACCIN E (1) [facility] Start: 02-24-2001 COVID-19 VACCINE (#1) COVID-19 VACCI NE (#1) [facility] Bacteria identified in Urine by Culture Urine culture Microbiology Routine Missed menses Ordered: 05/08/2025 [facility] Comment on above: Ordered: 05/08/2025 CBC W Auto Different ial panel - Blood CBC and differential Lab Routine Missed menses , unspecified gestational age ([facility]) Ordered: 05/08/2025 [facility] Comment on above: Ordered: 05/08/2025 CHLAMYDIA TRACHOMATI S (GENITO/STI) CHLAMYDIA TRACHOMATIS (GENITO/STI) Lab Routine Exposure to STD Ordered: 06/09/2025 [facility] Comment on above: Ordered: 06/09/2025 End: 11-26-2020 Chlamydia trachomatis+Neisseria gonorrhoeae rRNA [Presence] in Cervix by Probe GC &Chlamydia Microbiology Routine Late care affecting in second trimester 1 Occurrences starting 11/26/2020 until 11/26/2020 [facility] Comment on above: 1 Occurrences starti ng 11/26/2020 until 11/26/2020 Chlamydia trachomatis+Neisseria gonorrhoeae rRNA [Presence] in Cervix by Probe [facility] End: 12-21-2020 Chlamydia trachomatis+Neisseria gonorrhoeae rRNA [Presence] in Cervix by Probe GC & CHLAMYDIA AMPLIFIED PROBE Microbiology Routine 27 weeks gestation of Chlamydia trachomatis infection in mother during second trimester of 1 Occurrences starting 12/21/2020 until 12/21/2020 [facility] Comment on above: 1 Occurrences starti ng 12/21/2020 until 12/21/2020 End: 02-24-2021 Chlamydia trachomatis+Neisseria gonorrhoeae rRNA [Presence] in Cervix by Probe GC & Chlamydia Amplified Probe Microbiology Routine 36 weeks gestation of Chlamydia trachomatis infection in mother during second trimester of 1 Occurrences starting 02/24/2021 until 02/24/2021 [facility] Comment on above: 1 Occurrences starti ng 02/24/2021 until 02/24/2021 End: 06-08-2021 COVID-19 (2019 NOVEL CORONAVIRUS) [facility] Work Phone: Comment on above: One Time for 1 Occur rences starting 06/08/2021 until 06/08/2021 Cytology Cervical or vaginal smear or scraping study Pap Smear Pathology and Cytology Routine Well woman exam with routine gynecological exam Ordered: 06/09/2025 [facility] Comment on above: Ordered: 06/09/2025 End: 11-26-2020 Drug Screen Urine Extended Panel Drug Screen Urine Extended Panel Lab Routine Late care affecting in second trimester 1 Occurrences starting 11/26/2020 until 11/26/2020 [facility] Comment on above: 1 Occurrences starti ng 11/26/2020 until 11/26/2020 Drug Screen Urine Extended Panel Drug Screen Urine Extended Panel Lab Routine Late care affecting in second trimester 11/26/2020 3:23 PM EST [facility] nonstress test nonst ress test OB Routine Daily 0500 until discontinued starting 03/07/2021 [facility] Comment on above: Daily 0500 until dis continued starting 03/07/2021 End: 02-24-2021 Genital Group B Strep Screen Genital Group B Strep Screen Microbiology Routine 36 weeks gestation of 1 Occurrences starting 02/24/2021 until 02/24/2021 [facility] Comment on above: 1 Occurrences starti ng 02/24/2021 until 02/24/[address] p Screen Genital Group B Strep Screen Microbiology Routine 36 weeks gestation of 02/24/2021 10:07 PM EDT [facility] Hemoglobin A1c/Hemoglobin.total in Blood Hemoglobin A1c Lab Routine Missed menses , unspecified gestational age ([facility]) Ordered: 05/08/2025 [facility] Comment on above: Ordered: 05/08/2025 Hepatitis B virus surface Ag [Presence] in Serum or Plasma by Immunoassay Hepatitis B surface antigen Lab Routine Missed menses , unspecified gestational age ([facility]) Ordered: 05/08/2025 [facility] Comment on above: Ordered: 05/08/2025 Hepatitis C virus Ab [Presence] in Serum or Plasma by Immunoassay Hepatitis C antibody Lab Routine Missed menses , unspecified gestational age ([facility]) Ordered: 05/08/2025 [facility] Comment on above: Ordered: 05/08/2025 HIV-1/HIV-2 antigen/antibody combination immunoassay HIV-1 and HIV-2 antibodies Lab Routine Missed menses , unspecified gestational age ([facility]) Ordered: 05/08/2025 [facility] Comment on above: Ordered: 05/08/2025 Neisseria gonorrhoea e DNA [Presence] in Unspecified specimen by MARIZA with probe detection Neisseria gonorrhea DNA probe, direct Lab Routine Exposure to STD Ordered: 06/09/2025 [facility] Comment on above: Ordered: 06/09/2025 End: 03-06-2021 POCT Nitrazine Test POCT Nitrazine Test OB Routine One Time for 1 Occurrences starting 03/06/2021 until 03/06/2021 [facility] Comment on above: One Time for 1 Occur rences starting 03/06/2021 until 03/06/2021 PANEL WITH HIV Panel with HIV Lab Routine Late care affecting in second trimester 11/26/2020 3:26 PM EST [facility] Reagin Ab [Presence] in Serum by RPR RPR Lab Routine Missed menses , unspecified gestational age ([facility]) Ordered: 05/08/2025 [facility] Comment on above: Ordered: 05/08/2025 Rubella antibody, IgG Rubella an tibody, IgG Lab Routine Missed menses , unspecified gestational age ([facility]) Ordered: 05/08/2025 [facility] Comment on above: Ordered: 05/08/2025 End: 02-04-2022 SARS-COV-2, [facility] Work Phone: Comment on above: One Time for 1 Occur rences starting 02/04/2022 until 02/04/2022 End: 02-06-2022 SARS-COV-2, [facility] [employer] Work Phone: Comment on above: One Time for 1 Occur rences starting 02/06/2022 until 02/06/2022 SURESWAB(R) ADVANCED VAGINITIS PLUS, [facility]MA SURESWAB(R) ADVANCED VAGINITIS PLUS, [facility] Pathology and Cytology Routine Vaginal discharge Ordered: 06/09/2025 [facility] Work Phone: Comment on above: Ordered: 06/09/2025 End: 11-26-2020 Urine culture and sensitivity Urine culture and sensitivity Microbiology Routine Late care affecting in second trimester 1 Occurrences starting 11/26/2020 until 11/26/2020 [facility] Comment on above: 1 Occurrences starti ng 11/26/2020 until 11/26/2020 Urine culture and sensitivity Urine culture and sensitivity Microbiology Routine Late care affecting in second trimester 11/26/2020 3:23 PM EST [facility] US Pelvis transvaginal US OB tra nsvaginal Imaging Routine Missed menses Positive urine test ([facility]) 05/08/2025 12:54 PM EDT [facility] Immunizations Immunization Date Immunization Notes Care Provider Fa cility 03-04-2021 tetanus toxoid, reduced diphtheria toxoid, and acellular pertussis vaccine, adsorbed Stacy Alonso MD Work Phone: [employer] 08-26-2008 influenza virus vaccine, unspecified formulation Tatiana Lewis MD Work Phone: [employer] NEGATED: Highlighted row has not occurred!03-22-2021 measles, mumps and rubella virus vaccine Tatiana Lewis MD Work Phone: [facility] Comment on above: Deferred: - immune Payers Date Payer Category Payer Self-pay 2024 Medicaid (Managed Care) [facility] MEDICAID [id number] 2024 Unknown [id number] 2020 Medicaid [id number] 2020 Medicaid [facility] [id number] 2020-Present [phone] [place] [address] Medicaid [id number] 2000 Unknown [id number] 2000 Unknown [id number] 2000 Unknown [id number] 2000 Unknown [id number] 2000 Unknown [id number] 2000 Unknown [id number] 2000 Unknown [id number] 2000 Unknown [id number] [id number] 2000 Unknown [id number] Social History Date Type Detail Facility Start: 08-14-2020 End: 02-04-2022 Tobacco smoking status MEIS Former smoker [facility] Start: 08-14-2020 End: 06-14-2022 Tobacco use and exposure Never used [facility] Start: 2000 Sex Assigned At Not on file [facility] Start: 01-27-2023 End: 02-07-2023 Exposure to SARS-CoV-2 (event) Not sure [facility] End: 11-02-2020 History of tobacco use Current smoker [facility] Start: 11-26-2020 End: 02-04-2022 Alcohol intake Ex-drinker (finding) [facility] Start: 06-29-2020 [facility] Exposure to SARS-CoV-2 (event) Unable to assess [facility] Start: 2000 Sex Assigned At Female G [facility] Work Phone: Start: 09-21-2021 End: 06-14-2022 Tobacco smoking status MEIS Current every day smoker [facility] Work Phone: History of tobacco use Tobacco Use Types Packs/Day Years Used Date Smoking Tobacco: Every Day E-Cig/Vaping Smokeless Tobacco: Never [facility] Start: 02-07-2023 Alcohol intake Current drinke r of alcohol (finding) [facility] Start: 06-14-2022 Alcohol Comment occ [facility] Tobacco smoking status [facility] Tobacco smoking consumption unknown [facility] Healthcare Gender identity Not on file [facility] are Start: 01-17-2025 Sex Patient sex un known (finding) [facility] Clinical Notes 02-03-2021 to 06-09-2025 Ariella Wells, PUBLIC WORKS DIRECTOR - 06/09/2025 10:40 AM Hernan Pitts, ANTHONY - 05/08/2025 1:00 PM Ava Nguyen RN - 02/07/2023 4:32 AM [...] nursing note reviewed. Exam conducted with a molding cutter present. Vitals: There is no height or weight on file to calculate BMI. BP: 118/68 Patient's last menstrual period was 04/14/2025. ASSESSMENT & PLAN ICD-10-CM 1. 17 weeks gestation of ([facility]) Z3A.17 POCT urinalysis dipstick manually resulted Alpha fetoprotein, maternal Alpha fetoprotein, maternal 2. Second trimester ([facility]) Z34.92 POCT urinalysis dipstick manually resulted Alpha fetoprotein, maternal Alpha fetoprotein, maternal 3. Screening, , for anatomic survey ([facility]) Z36.89 US OB 14+ weeks anatomy scan [...] obtained without difficulty and patient was given [facility] order to have obtained. Orders Placed This Encounter Procedures US OB 14+ weeks anatomy scan CHLAMYDIA TRACHOMATIS (GENITO/STI) Neisseria gonorrhea DNA probe, direct Alpha fetoprotein, maternal POCT urinalysis dipstick manually resulted Follow Up: Patient is to return to our office in 4 weeks for routine OB appointment Documented by Ariella Wells LPN on behalf of: Tatiana Alcaraz NP documented in this encounter [facility] 05-08-2025 History of Presen t illness Narrative [...] urinalysis dipstick manually resulted Positive urine test ([facility]) - US OB transvaginal; Future , unspecified gestational age ([facility]) - Type and screen; Future - ABO/Rh; Future - CBC and differential - Hemoglobin A1c - RPR - Rubella antibody, IgG - Hepatitis B surface antigen - Hepatitis C antibody - HIV-1 and HIV-2 antibodies - Rapid drug screen, urine; Future Encounter for supervision of normal first in first trimester ([facility]) - Rapid drug screen, urine; Future Nurse [...] or undercooked meat, and stay away from formerly [facility]. Patient has also been advised to not change litter boxes and eat 6 small meals a day. Patient has been consulted regarding the do's and don'ts of . Patient was given labs and all questions and concerns were answered. Patient given [place] to have obtained with Initial labs. Patient [...] Kimmie Pitts LPN documented in this encounter [facility] 02-07-2023 Emergency department Note Discharge instructions given to pt. Pt verbalized understanding. Skin p/w/d, RR easy and unlabored. ID band removed from arm, pt ambulates to lobby with ease. [facility] 02-07-2023 Emergency department Note Discharge instructions [...] distress during triage. documented in this encounter [facility] 02-07-2023 Emergency department Note Pt ambulates [...] unlabored, airway patent, skin pwd, NAD noted. [facility] 02-06-2023 Emergency department Triage note Pt arrives to the ED for throat tightness. Onset over last 1 1/2 hour. Denies any throat pain, just tightness. Denies any known for cause. Pt A & O. Resp reg. Speech is clear. No distress during triage. [facility] 10-15-2021 Note CLINICAL HISTORY: Patient is [...] account for the patient's pain. Normal examination. [facility] 03-24-2021 Miscellaneous Notes Dischg'd to home [...] Size: 3 Other Children in home: 0 Financial Counselor / Family Physician: Dr Porras Problem List: Psychiatric History Community Agencies Involved: [facility] Assessment:: MOB has hx of anx. Reports that she gets nervous but is okay. MOB reports she has hx of dep but hasn't had it [id number]. PPD handout provided with verbal edu on [...] Porras. Breast feeding baby. Dad is Maria Antonai Clark and baby will be named Lida Clark. No concerns identified. Referrals Planned/Recommended @ DC: (none) Social Christian Guzman Images from the original note were not included. Rosina Vergara Social Worker [employer] Artist D/C Planning Signed Note Time: 03/22/211508 Creation [...] denies further needs. Vaginal Delivery Note Eva Roberta 2000 [id number] 20 y.o. at 40w0d gestation Delivering Principal Associate: Tatiana Lewis Primary Principal Associate: Tatiana Lewis Pre-Delivery Diagnosis: IUP at 40 weeks, [...] pink, crying, vigorous, moving all extremities well. Tatiana Lewis 03/22/[address] Lewis [...] to room 2104. EFM monitors applied. SVE 2/70/-3. documented in this encounter [facility] 03-24-2021 Hospital course Narrative Obstetrical Discharge Summary Eva Granados 2000 [id number] 03/21/2021 Delivering OB Clinician: Tatiana Lewis MD Primary OB: Nicole Rodarte DO [...] Nicole Rodarte 03/24/2021 documented in this encounter [facility] 03-24-2021 History of Presen t illness [...] 2. Routine care documented in this encounter [facility] 03-22-2021 History and physical note This [...] for : 37w US: vertex, EFW 3028g (3cd94ht) 42%ile, SUGAR 15.0cm, post gr3 placenta Late [...] +accelerations, intermittent early, late, and variable decelerations [place]: q 1-3 minutes VE: Complete/+2 station with artificial rupture performed for clear fluid Eva Granados 2000 [id number] 20 y.o. at 40w1d with EDC of Estimated Date of Delivery: 03/22/21 who is being admitted for induction of labor. Her current obstetrical history is remarkable for: 37w US: vertex, EFW 3028g (0dn05ew) 42%ile, SUGAR 15.0cm, post gr3 placenta Late [...] cephalic FHTs: To be assessed on arrival [place]: To be assessed on arrival Cervix: Last in office Dilation: 1cm Effacement: 50% Station: -3 Damon score: 3 Labs GBS neg Rh pos Impression: 20 y.o. at 40w1d Induction of labor Late PNC at 23w Chlamydia at NOB but 36w recheck neg GBS neg Rh pos Plan: 1. ATSO [place] 2. CEFM + [place] 3. Admission labs 4. Suspect some component of mild blood pressure elevations related to anxiety as happened at [facility] and when seeing a different provider last week. Will update preeclampsia labs on admission as a precautions. 5. Cervical ripening with cytotec, plan to follow with pitocin per protocol once Damon score is more favorable 6. Pain control PRN documented in this encounter [facility] 03-06-2021 Miscellaneous Notes Pt is discharged home undelivered, not in labor, no ROM. Teaching stressed good hydration and small frequent meals. She is discharged home with all belongings and instructions in stable condition with significant other and her mother per ambulation to a private motor vehicle. Phone report to Dr Alosno, re: pt's c/o, had intercourse, no ROM, [...] with monitors applied. documented in this encounter [facility] 03-06-2021 Hospital Discharg e instructions Nadege [...] not have a private physician call the [facility] NurseLine right away at or . [...] according to your Doctor s instructions. [facility] is located at [facility] on the [facility]. Warning Signals Possible Complications in Call [...] (use kick count). documented in this encounter [facility] 03-02-2021 Miscellaneous Notes EFM discontinued, pt given [...] pt states understanding. documented in this encounter [facility] 02-03-2021 Miscellaneous Notes Patient provided with [...] applied, education provided. documented in this encounter [facility] 02-03-2021 Hospital Discharg e instructions Jorge [...] Hydrocortisone. Ask your doctor about taking an nbpp-syj-eqyakzd stool softener. Consider Experts recommend that women [...] may help to think about your personal, yazidi, and family traditions. You get to decide if you will keep your son's penis natural or if he will be circumcised. If you decide that you would like to have your baby circumcised, talk with your doctor. You can share your concerns about pain. And you can discuss your preferences for anesthesia. Where can you learn more? Go to https://www.GrubHub.Itouzi.com/pat ientEd Enter X711 in the search box to learn more about Weeks 32 to 34 of Your : Care Instructions. Current as of: July 09, 2020 Content Version: 12.8 [employer]. Care instructions adapted under license by your healthcare professional. If you have questions about a medical condition or this instruction, always ask your healthcare professional. [employer] disclaims any warranty or liability for your use of this information. documented in this encounter [facility] Evaluation note Diagnosis 36 weeks gestation of state, incidental Chlamydia trachomatis infection in mother during second trimester of [facility]* Diagnosis (spontaneous vaginal delivery)- Primary Normal delivery Encounter for induction of labor Normal labor Chlamydia trachomatis infection in mother during second trimester of Late care affecting in second trimester [facility]* Diagnosis Breast pain, left Mastodynia [facility]* Diagnosis URI with cough and congestion [facility]* Diagnosis Sore throat- Primary Acute pharyngitis [facility] noteNo assessment information available [facility] Work Phone: Evaluation note* Diagnosis Missed menses Positive urine test ([facility]) , unspecified gestational age ([facility]) Encounter for supervision of normal first in first trimester ([facility]) Nonintractable headache, unspecified chronicity pattern, unspecified headache type documented in this encounter [facility] HealthcareEvaluation note* Diagnosis 17 weeks gestation of ([facility]) Second trimester ([facility]) state, incidental Screening, , for anatomic survey ([facility]) Encounter for anatomic survey Exposure to STD Vaginal discharge Leukorrhea, not specified as infective Well woman exam with routine gynecological exam Routine gynecological examination documented in this encounter [facility] HealthcareHospital Discharge instructions* Instructions* aTmiko Melo RN - 03/02/2021 Signs and Symptoms of Labor This is a guide for you about the signs of true labor. If you have any of these signs before 36 weeks of (nine months), please call your private physician. If you do not have a private physician call the [facility] NurseLine right away at or . [...] Call according to your Doctor s instructions. [facility] is located at [facility] the [facility]. Warning Signals Possible Complications in Call [...] movement (use kick count). [facility]* Instructions* Maile Moses [...] eating high-fiber foods. Ask your doctor about silc-qmc-rmiopfc stool softeners. Cleanse yourself with a gentle [...] few days after delivery. Plan for child support specialist if you have other children. Stay flexible [...] Where can you learn more? Go to https://www.GrubHub.net/patientEd Enter A461 in the search box to learn more about After Your Delivery (the Period): CareInstructions. Current as of: July 09, 2020 Content Version: 12.9 Loc[employer]. Care instructions adapted under license by your healthcare professional. If you have questions about a medical condition or this instruction, always ask your healthcare professional. [employer] disclaims any warranty or liability for your use of this information. * Attachments The following attachments cannot be sent through Care Everywhere. * (Macanese Equ[place] Guinean) [facility]* Attachments The following attachments cannot be sent through Care Everywhere. * Sore Throat (Macanese Equ[place] Guinean) [facility] Procedure Authorization (Routine) - Closed Specialty Diagnoses / Procedures Referred By Contac t Referred To Contact Diagnoses Breast pain, left Procedures US Breast Left Limited Marianna Abbasi APRN CNP [address] [place] [address] [phone] Referral ID Status Reason Start Date Expiration Date Visits Re quested Visits Authorized [id number] Closed 09/21/2021 10/22/2022 1 1 [facility]* Procedure Authorization (Routine) - Closed Specialty Diagnoses / Procedures Referred By Contac t Referred To Contact Diagnoses Breast pain, left Procedures US Breast Left Limited Marianna Abbasi APRN CNP [address] [place] [address] [facility] [address] [place] [phone] Referral ID Status Reason Start Date Expiration Date Visits Re quested Visits Authorized [id number] Closed 09/21/2021 10/22/2022 1 1 [facility] Reason for Referral Status Reason Specialty Diagnoses / Procedures Referred By Contact Referred To Contact [facility] 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 Teacher / Dentistry Diagnoses Pain, dental Jaw swelling Aliya Cao DO [address] [place] [address] [facility] [address] [place] [address] Status Reason Specialty Diagnoses / Procedures Referred By Contact Referred To Contact [facility] Diagnoses Pain, dental Jaw swelling Aliya Cao DO [address] [place] [address] [facility] [address] [facility] [place] [address] [place] [address] Discharge Instructions * Instructions* Aliya Cao DO - 08/14/2020 No driving or operating heavy machinery while taking norco - no extra tylenol * Attachments The following attachments cannot be sent through Care Everywhere. * Tooth and Gum Pain ([place]anese [place]) documented in this encounter Assessments Diagnosis Pain, [...] Documents on File Type Date Recorded Patient [employer] Principal Expl anation Advance Directives and Living Will Power of Extrusion Engineer Documents on File Type Date Recorded Patient Elementary [employer] Principal Expl anation Advance Directives and Living Will Power of Extrusion Engineer Latest Code Status on File Code Status [...] Documents on File Type Date Recorded Patient [employer] Principal Expl anation Advance Directives and Living Will Power of Extrusion Engineer DNR Documentation Latest Code Status on File Code Status Date Activated Date Inactivated Comments Full Code 03/22/2021 5:16 AM 03/24/2021 7:51 PM Full Code 03/22/2021 1:13 AM 03/22/2021 5:16 AM Full Code 03/21/2021 9:27 PM 03/22/2021 1:13 AM Full Code 03/19/2021 11:50 AM 03/21/2021 9:27 PM Full Code 03/06/2021 9:45 PM 03/07/2021 4:11 AM Documents on File Type Date Recorded Patient Elementary [employer] Principal Expl anation Advance Directives and Living Will Power of Extrusion Engineer DNR Documentation Summary Purpose Family History No [...] Routine Visit Well Women Visit STI Screening CaoAliya grayson, - 08/14/2020 8:59 AM CASTILLOMoJuliann jauregui, RN - 08/14/2020 6:49 AM EST ED [...] (Given - Provider: Maile Moses RN) TdaP ivrihhe-cumqgnhlfr-dphv lular pertussis (BOOSTRIX) injection 0.5 mL 0.5 [...] Belle RN)[id number] (Infusion Complete - Provider: Leah Graves, [...] January 15, 2025 End: January 15, 2025 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 [employer] [facility]. provides no warranty or guarantee of the accuracy or completeness of information in this document.
== END 2025-07-07 13:52 | disposition home or self-care (01) ==
LOC: US 13:51
PROVIDERS: PCP Nurse Practitioner Family; Visit Provider Nurse Practitioner Family
DX: Z34.02 Encounter for supervision of normal first pregnancy, second trimester (principal); Z36.89 Encounter for other specified antenatal screening
CPT/HCPCS: 76805; 76817; 80307

== ENCOUNTER 2025-07-07 19:50 | Outpatient (REF) | payer OTHER, SELFPAY ==
--- OUTSIDE RECORDS SUMMARY | 2025-07-07 19:54 | XMS_ITS | CCD ---
Author Organization [facility] Care Team Providers Care Security Public Safety Officer Name Role Phone Pcp, None Primary Care Provider UnavailBRENDAN Lerma Attending Unavailable BRENDAN PEREZ Referring Unavailable PCP, NONE Primary Care Unavailable BELLE OCHOA Attending Unavailable BEAU BELLE Referring Unavailable PCP, [...] oral solution (3 sources) alpha-Adrenergic Agonist, Uncompetitive V-gdgbfr-C-aspart ate Receptor Antagonist, Sigma-1 Agonist Start: 02-04-2022 [...] 28-0.8 MG tablet Indications: Positive urine test ([facility]) Take 1 tablet by mouth Daily 30 [...] High,A-Abnormal,AA-Critical Abnormal Performed at: 01 =G [address] [place] [address] Naima Shannon MD, IGP, RFX APTIMA HPV ASCU Note . [facility] Comment on above: TESTS RESULT FLAG U NITS REF RANGE LAB DIAGNOSIS: 02 NEGATIVE FOR INTRAEPITHELIAL LESION OR MALIGNANCY. Specimen adequacy: 02 Satisfactory for evaluation. Endocervical and/or squamous metaplastic cells (endocervical component) are present. Performed by: 02 Marianna Mondragon Network Systems Analyst ([facility]) . 02 Note: Note 02 The [...] High,A-Abnormal,AA-Critical Abnormal Performed at: 02 WB [facility] [address] [address] Naima Shannon MD, Performed at: =G - [facility] [address] [id number] Social Sciences Chair: Naima Shannon MD, Phone: [phone] Performed at: [address] [id number] Social Sciences Chair: Naima Shannon MD, Phone: [phone] [facility] RECURRENT VAGINITIS (HTRX)on 06-10-2025 ATOPOBIUM VAGINAE 29.974 Abnormal [facility] ATOPOBIUM VAGINAE Detected Abnormal [facility] BVAB 2,3 (BACTERIAL VAGINOSIS ASSOCIATED BACTERIA 2, 3); MOBILUNCUS SPP 0 [facility] BVAB 2,3 (BACTERIAL VAGINOSIS ASSOCIATED BACTERIA 2, 3); MOBILUNCUS SPP Not detected [facility] PABLO ALBICANS, PARAPSILOSIS, TROPICALIS 0 [facility] PABLO ALBICANS, PARAPSILOSIS, TROPICALIS Not detected [facility] PABLO GLABRATA 0 [facility] PABLO GLABRATA Not detected [facility] PABLO KRUSEI 0 [facility] Healthcare PABLO KRUSEI Not detected [facility] CHLAMYDIA TRACHOMATIS 0 [facility] S [facility] CHLAMYDIA TRACHOMATIS Not detected N S [facility] ERMB, C; MEFA 25.073 Abnormal [facility] Healthcare ERMB, C; MEFA Detected Abnormal [facility] GARDNERELLA VAGINALIS 23.45 Abnormal [facility] S [facility] GARDNERELLA VAGINALIS Detected Abnormal [facility] Healthcare Interpretation and review of laboratory results Abnormal [facility] MEGASPHAERA (TYPES 1, 2) 0 [facility] MEGASPHAERA (TYPES 1, 2) Not detected [facility] MYCOPLASMA GENITALIUM 0 [facility] MYCOPLASMA GENITALIUM Not detected [facility] NEISSERIA GONORRHOEAE 0 [facility] S [facility] NEISSERIA GONORRHOEAE Not detected N [facility] TET B, TET M 24.604 Abnormal [facility] TET B, TET M Detected Abnormal [facility] TRICHOMONAS VAGINALIS 0 [facility] S [facility] TRICHOMONAS VAGINALIS Not detected N [facility] Urinalysis macro (dipstick) panel (U)on 06-09-2025 Bilirubin, UA Negative Negative - 4(70) +++ mg/dL [facility] Blood, UA Negative Negative - 50 Obey/mcL [facility] Clarity, UA Clear [facility] Color, UA Yellow [facility] Glucose, [...] Urobilinogen, UA 1.0 0.2 - 12 mg/dL [facility] BOX TESTon 05-08-2025 BOX TEST SENT OUT [employer] [facility] BOX1 [facility] BOX2 05/08/25 [facility] HCG ( test) Ql (U)o n 05-08-2025 Interpretation and review of laboratory results Abnormal [facility] Preg Test, Ur Positive Negative [facility] US OB TRANSVAGINALon 025 US OB TRANSVAGINAL [...] Urobilinogen, UA 1.0 0.2 - 12 mg/dL [facility] ALL CBC WITH AUTO DIFFon BASOPHILS ABSOLUTE AUTO 0 N [facility] Basophils/100 WBC (Bld) 0.4 % 0.2 [facility] MONOCYTES ABSOLUTE AUTO 0.4 N [facility] Monocytes/100 WBC (Bld) 7.3 % 1.7 - 12.0 % [facility] NEUTROPHILS ABSOLUTE AUTO 3.3 [facility] Neutrophils/100 WBC (Bld) 59.7 % 43.0 - 75.0 % [facility] Platelet mean volume (Bld) [Entitic vol] 9.9 fL 9.5 - 13.5 fL [facility] TBH EO # 0.1 [facility] PLT 187 [facility] RBC 3.72 Low [facility] WBC 5.5 [facility] ALL TYPE AND SCREENon 2024 ABO and Rh group Nom (Bld) Blood group O Rh(D) positive [facility] US OB TRANSVAGINALon 025 US OB TRANSVAGINAL [...] II, MD, PHD at 16-Jan-2025 01:26:48 PM [facility] [employer] Normal Not Available Comment on above: Order Comment: US OB VIABILITY PLEASE PERFORM TRANSVAGINAL ULTRASOUND IF INDICATED No LMP recorded. Urine Cultureon 01-15-2025 Bacteria identified Cx Nom (U) >100,000 colonies/ml mixed bacterial skin contaminants 2 Days PERFORMED BY: [facility] [address] [place] [address] PATHOLOGIST CLINIC LEAD ANGELIC LESLIE M.D. Normal [facility] Comment on above: Performed By: #### C UU #### [facility] [address] [id number] [facility] US OB TRANSVAGINALon 025 US OB TRANSVAGINAL [...] II, MD, PHD at 13-Jan-2025 11:46:49 PM [facility] Normal Not Available Comment on above: Order Comment: US OB TRANSVAGINAL No LMP recorded. STREP A MOLECULARon 02-08-20 23 STREP A MOLECULAR Negative Normal Negative [facility] Comment on above: Performed By: #### 3 [id number] #### [facility] [address] [place] [address] Strep AOrdered By: Khloe Kaminski on 02-06-2023 Streptococcus.beta-hemo lytic Org specific cx Ql (Unsp spec) Negative Negative [facility] Streptococcus.beta-hemolytic Org specific cx Ql (Unsp spec)Ordered By: Khloe Kaminski on 02-06-2023 Interpretation and review of laboratory results Normal [facility] GCon 06-17-2022 CHLAMYDIA AMPLIFIED PROBE Negative Normal Negative [facility] Comment on above: Performed By: #### [id number] #### [place] [address] GC AMPLIFIED PROBE Negative Normal Negative [facility] Comment on above: Performed By: #### 4 [id number] #### [place] [address] GCon 06-16-2022 CHLAMYDIA SOURCE ThinPrep Normal [facility] Comment on above: Performed By: #### 4 [id number] #### [place] [address] GC SOURCE ThinPrep Normal [facility] Comment on above: Performed By: #### 4 [id number] #### [place] [address] US Breast - left limitedon 0 10-15-2021 [...] Clinical Follow-Up BI-RADS: ACR BI-RADS 1: Negative [facility] Radiology Study observation (narrative) [facility] US Breast - left limitedOrde red By: Dimas Patel on 10-15-2021 [facility] [employer] Work Phone: CBC without differentialOrde red By: Tatiana Lewis on 03-23-2021 Erythrocyte distribution width (RBC) [Ratio] 13.9 % 11.5 - 14.5 % [facility] Hematocrit (Bld) [Volume fraction] 28.6 % Low 33.6 - 46.8 % [facility] Hemoglobin (Bld) [Mass/Vol] 9.1 g/dL Low 11.7 - 15.8 g/dL [facility] Interpretation and review of laboratory results Abnormal [facility] MCH (RBC) [Entitic mass] 28.4 pg 27.5 - 32.3 pg [facility] MCHC (RBC) [Mass/Vol] 31.8 g/dL 30.7 - 35.5 g/dl [facility] MCV (RBC) [Entitic vol] 89.4 fL 80.2 - 99.0 fL [facility] Platelets (Bld) [#/Vol] 196.0 10*3/uL [facility] RBC (Bld) [#/Vol] 3.20 10*6/uL Low [facility] WBC LM Ql (Sput) 11.3 High [facility] BUPRENORPHINE SCRN, UR, REFL EX QUANTOrdered By: Tatiana Lewis on 03-22-2021 Buprenorphine Screen, UR Not detected CUTOFF <10 ng/mL [facility] Tox Message see below [facility] Comment on above: Notes: 1. SCREENING RESULTS SHOULD BE CONSIDERED PRESUMPTIVE UNLESS THE PRESENCE OF THE ANALYTE HAS BEEN CONFIRMED BY A REFERENCE LAB. 2. ALL DRUG GROUPS ARE ANALYZED ON URINE. [facility] CBCOrdered By: Tatiana ambriz on 03-22-2021 Erythrocyte distribution width (RBC) [Ratio] 13.4 % 11.5 - 14.5 % [facility] Hematocrit (Bld) [Volume fraction] 35.4 % 33.6 - 46.8 % [facility] Hemoglobin (Bld) [Mass/Vol] 11.9 g/dL 11.7 - 15.8 g/dL [facility] Interpretation and review of laboratory results Abnormal [facility] MCH (RBC) [Entitic mass] 28.3 pg 27.5 - 32.3 pg [facility] MCHC (RBC) [Mass/Vol] 33.6 g/dL 30.7 - 35.5 g/dl [facility] MCV (RBC) [Entitic vol] 84.1 fL 80.2 - 99.0 fL [facility] Platelets (Bld) [#/Vol] 246.0 10*3/uL [facility] RBC (Bld) [#/Vol] 4.21 10*6/uL [facility] WBC LM Ql (Sput) 11.9 High [facility] Syphilis Treponema AntibodyO rdered By: Tatiana Lewis on 03-22-2021 Syphilis Treponema Antibody Non-Reactive Nonreactive [facility] Toxicology screen, urineOrde red By: Tatiana Lewis on 03-22-2021 Amphetamines Screen method >1000 ng/mL Ql (U) Not detected CUTOFF <1000 ng/mL [facility] Barbiturates Screen method >200 ng/mL Ql (U) Not detected CUTOFF <200 ng/mL [facility] Benzodiazepines Ql (U) Not detected CUTOF F <200 ng/mL [facility] Benzoylecgonine Screen (U) [Mass/Vol] Not detected CUTOFF <300 ng/mL [facility] Cannabinoids Screen method >50 ng/mL Ql (U) Not detected CUTOFF <50 ng/mL [facility] Fentanyl Not detected CUTOFF 1.0 ng/mL [facility] Opiates Screen (U) [Mass/Vol] Not detected CUTOFF <300 ng/mL [facility] Phencyclidine (U) [Mass/Vol] Not detected CUTOFF <25 ng/mL [facility] Tox Message see below [facility] Comment on above: Notes: 1. SCREENING RESULTS SHOULD BE CONSIDERED PRESUMPTIVE UNLESS THE PRESENCE OF THE ANALYTE HAS BEEN CONFIRMED BY A REFERENCE LAB. 2. ALL DRUG GROUPS ARE ANALYZED ON URINE. [facility] Type and ScreenOrdered By: Cristina Lewis on 03-22-2021 ABO and Rh group Nom (Bld) Blood group O Rh(D) positive [facility] Blood group antibody screen.cells I+II+III Ql Negative [facility] Fern test, vaginal fluidOrde red By: Stacy Alonso on 03-02-2021 Fern Test NONE SEEN NONE SEEN [facility] CBCon 01-05-2021 Erythrocyte distribution width (RBC) [Ratio] 13.4 % 11.5 - 14.5 % [facility] Hematocrit (Bld) [Volume fraction] 34.0 % 33.6 - 46.8 % [facility] Hemoglobin (Bld) [Mass/Vol] 11.2 g/dL Low 11.7 - 15.8 g/dL [facility] Interpretation and review of laboratory results Abnormal [facility] MCH (RBC) [Entitic mass] 29.2 pg 27.5 - 32.3 pg [facility] MCHC (RBC) [Mass/Vol] 32.9 g/dL 30.7 - 35.5 g/dl [facility] MCV (RBC) [Entitic vol] 88.8 fL 80.2 - 99 fL [facility] Platelets (Bld) [#/Vol] 244.0 10*3/uL [facility] RBC (Bld) [#/Vol] 3.83 10*6/uL [facility] WBC LM Ql (Sput) 10.9 High [facility] Glucose tolerance, 1 houron 01-05-2021 Glucose 1 Hr post 50 g glucose PO [Mass/Vol] 83 mg/dL [facility] Comment on above: REFERENCE-GLUCOSE 1 HR WITH DEXTROSE Values >140 mg/dL constitute a positive screen [facility] Syphilis Treponema Antibody (RPR)on 01-05-2021 Syphilis Treponema Antibody Nonreactive Nonreactive [facility] Comprehensive metabolic pane l aka [employer] 11-26-2020 Albumin [Mass/Vol] 3.7 g/dL 3.5 - 5 g/dL [facility] Alk Phos 78 U/L 24 - 126 U/L [facility] ALT [Catalytic activity/Vol] 12 U/L 4 - 35 U/L [facility] AST [Catalytic activity/Vol] 19 U/L 3 - 47 U/L [facility] Bilirubin [Mass/Vol] 0.6 mg/dL 0.2 - 1.6 mg/dL [facility] Calcium [Mass/Vol] 9.5 mg/dL 8.4 - 10. 4 mg/dL [facility] Chloride [Moles/Vol] 105 mmol/L 96 - 109 mmol/L [facility] CO2 [Moles/Vol] 21 mmol/L Low 22 - 30 mmol/L [facility] Comprehensive metabolic 2000 panel 0.46 mg/dL Low 0.52 - 1.04 mg/dL [facility] Glucose [Mass/Vol] 87 mg/dL 65 - 100 mg/dL [facility] Interpretation and review of laboratory results Abnormal [facility] Potassium [Moles/Vol] 4.2 mmol/L 3.6 - 5.1 mmol/L [facility] Protein [Mass/Vol] 6.8 g/dL 6.3 - 8.2 g/dL [facility] Sodium [Moles/Vol] 133 mmol/L Low 135 - 147 mmol/L [employer] Urea nitrogen [Mass/Vol] 7 mg/dL Low 8 - 20 mg/dL [employer] GLOMERULAR FILTRATION RATEon 11-26-2020 GFR/1.73 sq M.predicted MDRD (S/P/Bld) [Vol rate/Area] mL/min/{1.73_m2} [employer] Comment on above: To estimate the GFR [...] fraction] 4.3 % 0 - 6 % [employer] Comment on above: Reference Interval f or %A1c %A1c (NGSP) Interpretation <6.0% Non-Diabetic Range >6.5% Action Suggested . Hepatitis C antibodyon 11-26 HCV Ab Qn (S) Nonreactive Nonreactive [facility] [employer] LDH SERUMon 11-26-2020 LDH Pyruvate to lactate reaction [Catalytic activity/Vol] 513 U/L 308 - 626 U/L [facility] Otheron 11-26-2020 [facility] Type & Screen (must order with either panel)on 11-26-2020 ABO and Rh group Nom (Bld) O POS [facility] Blood group antibody screen.cells I+II+III Ql Negative [facility] Protein / creatinine ratio, urineon 11-26-2020 Protein (U) [Mass/Vol] 10 mg/dL 0 - 12 mg/dL [facility] Protein/Creatinine (U) [Mass ratio] 0.1 [facility] Ur Cre-Random 118.20 mg/dL NO NORMALS [facility] Uric acidon 11-26-2020 Urate [Mass/Vol] 3.0 mg/dL 2 - 7 mg/dL [facility] Vital Signs Date Time Vital Sign Value Performing Clinician Facility 06-09-2025 10:59-0400 Body weight 75.66 kg Tatiana Alcaraz NP Work Phone: [facility] 06-09-2025 10:59-0400 Diastolic blood pressure 68 mm[Hg] Tatiana Alcaraz NP Work Phone: [facility] 06-09-2025 10:59-0400 Systolic blood pressure 118 mm[Hg] Tatiana Alcaraz NP Work Phone: [facility] 05-08-2025 13:21-0400 Body weight 74.66 kg [facility] 05-08-2025 13:21-0400 Diastolic blood pressure 70 mm[Hg] [facility] 05-08-2025 13:21-0400 Systolic blood pressure 120 mm[Hg] [facility] 02-07-2023 04:32-0400 Diastolic blood pressure 65 mm[Hg] Conchita Bomsta DO Work Phone: [facility] 02-07-2023 04:32-0400 Heart rate 69 /min Conchita Bomsta DO Work Phone: [facility] 02-07-2023 04:32-0400 Respiratory rate 18 /min Conchita Bomsta DO Work Phone: [facility] 02-07-2023 04:32-0400 SaO2% (BldA) [Mass fraction] 99 % Conchita Bota DO Work Phone: [facility] 02-07-2023 04:32-0400 Systolic blood pressure 114 mm[Hg] Conchita Bomsta DO Work Phone: [employer] [facility] 02-06-2023 23:14-0400 Body height 167.6 cm Conchita Bota DO Work Phone: [facility] 02-06-2023 23:14-0400 Body mass index (BMI) [Ratio] 34.7 kg/m2 Conchita Bota DO Work Phone: [facility] 02-06-2023 23:14-0400 Body temperature 98.91 [degF] Conchita Brownta DO Work Phone: [employer] [facility] 02-06-2023 23:14-0400 Body weight 97.52 kg Conchita Brownta DO Work Phone: [facility] 03-24-2021 08:00-0400 Body temperature 98.29 [degF] Tatiana Lewis MD Work Phone: [facility] 03-24-2021 08:00-0400 Diastolic blood pressure 55 mm[Hg] Tatiana Lewis MD Work Phone: [facility] 03-24-2021 08:00-0400 Heart rate 76 /min Tatiana Lewis MD Work Phone: [facility] 03-24-2021 08:00-0400 Respiratory rate 16 /min Tatiana Lewis MD Work Phone: [facility] 03-24-2021 08:00-0400 Systolic blood pressure 115 mm[Hg] Tatiana Lewis MD Work Phone: [facility] 03-24-2021 04:00-0400 SaO2% (BldA) [Mass fraction] 97 % Tatiana Lewis MD Work Phone: [facility] 03-21-2021 20:37-0400 Body height 167.6 cm Tatiana Lewis MD Work Phone: [facility] 03-21-2021 20:37-0400 Body mass index (BMI) [Ratio] 39.71 kg/m2 Tatiana Lewis MD Work Phone: [facility] 03-21-2021 20:37-0400 Body weight 111.58 kg Tatiana Lewis MD Work Phone: [phone](553)[phone] [address] 03-06-2021 21:50-0400 Diastolic blood pressure 57 mm[Hg] Stacy Alonso MD Work Phone: 6(424)[phone] [address] 03-06-2021 21:50-0400 Heart rate 77 /min Stacy Alonso MD Work Phone: 7(780)[phone] [address] 03-06-2021 21:50-0400 Systolic blood pressure 120 mm[Hg] Stacy Alonso MD Work Phone: 4(959)[phone] [address] 03-06-2021 20:50-0400 Body height 167.6 cm Stacy Alonso MD Work Phone: 8([phone] [address] 03-06-2021 20:50-0400 Body mass index (BMI) [Ratio] 38.58 kg/m2 Stacy Alonso MD Work Phone: [facility] 03-06-2021 20:50-0400 Body weight 108.41 kg Stacy Alonso MD Work Phone: [phone] [address] 03-06-2021 20:50-0400 Respiratory rate 20 /min Stacy Alonso MD Work Phone: [facility] 03-06-2021 20:48-0400 Body temperature 98.01 [degF] Stacy Alonso MD Work Phone: [facility] 03-02-2021 02:04-0400 Diastolic blood pressure 69 mm[Hg] Stacy Alonso MD Work Phone: [facility] 03-02-2021 02:04-0400 Heart rate 88 /min Stacy Alonso MD Work Phone: [facility] 03-02-2021 02:04-0400 Systolic blood pressure 131 mm[Hg] Stacy Alonso MD Work Phone: [facility] 03-02-2021 01:37-0400 Body height 167.6 cm Stacy Alonso MD Work Phone: [facility] 03-02-2021 01:37-0400 Body mass index (BMI) [Ratio] 38.41 kg/m2 Stacy Alonso MD Work Phone: [phone] [address] 03-02-2021 01:37-0400 Body temperature 98.91 [degF] Stacy Alonso MD Work Phone: [facility] 03-02-2021 01:37-0400 Body weight 107.96 kg Stacy Alonso MD Work Phone: [facility] 03-02-2021 01:37-0400 Respiratory rate 20 /min Stacy Alonso MD Work Phone: [facility] 02-03-2021 21:58-0400 Diastolic blood pressure 77 mm[Hg] Stacy Alonso MD Work Phone: [facility] 02-03-2021 21:58-0400 Heart rate 91 /min Stacy Alonso MD Work Phone: [facility] 02-03-2021 21:58-0400 Respiratory rate 18 /min Stacy Alonso MD Work Phone: [facility] 02-03-2021 21:58-0400 Systolic blood pressure 128 mm[Hg] Stacy Alonso MD Work Phone: [facility] 08-14-2020 09:19-0500 Body Temperature 98.49 [degF] Aliya Cao [facility] 08-14-2020 06:50-0500 BMI (Body Mass Index) [...] 06-09-2025 End: 06-09-2025 Bamboo flowsheet Tatiana Alcaraz INTERNATIONAL MARKETING EXECUTIVE Work Phone: [facility] Start: 06-09-2025 End: 06-11-2025 Bamboo flowsheet Tatiana Alcaraz INTERNATIONAL MARKETING EXECUTIVE Work Phone: [facility] Start: 06-09-2025 End: 06-11-2025 [facility] Result Encounter Tatiana Alcaraz NP Work Phone: [facility] Unsolicited Start: 06-09-2025 End: 06-10-2025 External Result Encounter Tatiana Alcaraz INTERNATIONAL MARKETING EXECUTIVE Work Phone: [facility] Unsolicited Start: 06-09-2025 End: 06-09-2025 ambulatory TATIANA ALCARAZ Not Available Start: 06-09-2025 End: 06-09-2025 Office outpatient visit 15 minutes Tatiana Alcaraz INTERNATIONAL MARKETING EXECUTIVE Work Phone: [facility] Comment on above: 17 weeks gestation o f ([facility] Second trimester ([facility]); Screening, , for anatomic survey ([facility]); Exposure to STD; Vaginal discharge; Well woman exam with routine gynecological exam Start: 06-09-2025 End: 06-09-2025 Patient encounter procedure Tatiana Alcaraz INTERNATIONAL MARKETING EXECUTIVE Work Phone: [facility] Start: 05-08-2025 End: 05-08-2025 Clinisync Result Encounter Robi Marcelo DO Work Phone: [facility] Unsolicited Start: 05-08-2025 End: 05-08-2025 Clinisync Result Encounter Robi Marcelo DO Work Phone: [facility] Unsolicited Start: 05-08-2025 End: 05-08-2025 ambulatory TATIANA JOB Not Available Start: 05-08-2025 End: 05-08-2025 Office outpatient visit 5 minutes Marcelo Nurse [facility] Comment on above: GA: 12w4d Start: 05-08-2025 End: 05-08-2025 ambulatory TATIANA DURANTERLY Not Available Start: 04-09-2025 ambulatory Octavio Epperson acility:[facility] Start: 01-24-2025 End: 01-24-2025 Clinisync Result Encounter [...] Start: 01-15-2025 End: 01-15-2025 ambulatory NON STAFF [facility] Work Phone: Start: 01-15-2025 End: 01-15-2025 Departed Referred [facility] Start: 01-10-2025 End: 01-10-2025 ambulatory TATIANA ALCARAZ Not Available Start: 12-27-2024 Registered Recurring Fi [facility] Start: 02-07-2023 End: 02-07-2023 Emergency department patient visit NONE PCP [facility] Start: 02-07-2023 End: 02-07-2023 Emergency department patient visit Conchita D Gabbi DO Work Phone: [facility] Comment on above: Sore throat (Primary Dx) Start: 06-20-2022 ambulatory BRENDAN GAYLEEARLENE [facility] Start: 06-14-2022 End: 06-14-2022 ambulatory [facility] Start: 06-14-2022 Encounter for gynecological examination (general) (routine) [facility] Start: 06-14-2022 End: 06-15-2022 [facility] Start: 02-06-2022 End: 02-06-2022 Subsequent hospital visit by physician Paulo Upton DO Work Phone: [facility] Start: 02-04-2022 End: 02-04-2022 Subsequent hospital visit by physician Kym Gutierrez APRN AUTO DESIGN CHECKER Work Phone: [facility] Comment on above: URI with cough and c ongestion Start: 10-15-2021 End: 10-15-2021 Subsequent hospital visit by physician Marianna Abbasi APRN AUTO DESIGN CHECKER Work Phone: [facility] Comment on above: Breast pain, left Start: 06-08-2021 End: 06-08-2021 Subsequent hospital visit by physician Job Fitzgerald MD Work Phone: [facility] Start: 03-21-2021 End: 03-24-2021 Evaluation and management of inpatient Tatiana Lewis MD Work Phone: [facility] ([facility]) Comment on above: Encounter for induct ion of labor (Primary Dx) Start: 03-06-2021 End: 03-06-2021 Subsequent hospital visit by physician Stacy Alonso MD Work Phone: [facility] ([address] [place]) Start: 03-02-2021 End: 03-02-2021 Subsequent hospital visit by physician Stacy Alonso MD Work Phone: [facility] ([address] [place]) Start: 02-24-2021 End: 02-24-2021 Subsequent hospital visit by physician Nicole Rodarte DO Work Phone: [facility] Comment on above: 36 weeks gestation o f ; Chlamydia trachomatis infection in mother during second trimester of Start: 02-03-2021 End: 02-03-2021 Subsequent hospital visit by physician Stacy lAonso MD Work Phone: [facility] ([address] [place]) Start: 01-05-2021 End: 01-05-2021 Subsequent hospital visit by physician Nicole Rodarte Work Phone: [facility] Comment on above: 27 weeks gestation o f Start: 12-21-2020 End: 12-21-2020 Subsequent hospital visit by physician Nicole Rodarte Work Phone: [facility] Comment on above: 27 weeks gestation o f ; Chlamydia trachomatis infection in mother during second trimester of Start: 11-26-2020 End: 11-26-2020 Subsequent hospital visit by physician Nicole Rodarte Work Phone: [facility] Comment on above: Late care a ffecting in second trimester Start: 11-26-2020 End: 11-26-2020 Subsequent hospital visit by physician Nicole Rodarte Work Phone: [facility] Comment on above: Late care a ffecting in second trimester; History of low potassium; Elevated blood pressure reading Start: 08-14-2020 End: 08-14-2020 Emergency department patient visit Aliya Amatoe Work Phone: [facility] Comment on above: Pain, dental (Primar y Dx); Jaw swelling Procedures Date Procedure Procedure Detail Performing Clinician Start: 06-09-2025 RECURRENT VAGINITIS (HTRX) Tatiana Alcaraz INTERNATIONAL MARKETING EXECUTIVE Work Phone: Start: 06-09-2025 Urnls dip stick/tabl et rgnt non-auto w/o micrscp Tatiana Alcaraz INTERNATIONAL MARKETING EXECUTIVE Work Phone: Start: 06-09-2025 IGP,APTIMA HPV,AGE GDLN Tatiana Alcaraz INTERNATIONAL MARKETING EXECUTIVE Work Phone: Start: 05-08-2025 BOX TEST Robi [...] duane with image limited Marianna Abbasi APRN AUTO DESIGN CHECKER Work Phone: Start: 03-23-2021 Blood count complete [...] DTAP/TDAP/TD VACCINE (2 - Td or Tdap) [facility] Start: 03-04-2031 Diphtheria + pertuss is + tetanus vaccine (product) DTAP/TDAP/TD VACCINE (2 - Td or Tdap) [facility] Start: 07-07-2025 End: 07-07-2025 Patient encounter procedure 07/07/2025 2:00 PM EDT Routine YANELI HATHAWAY [address] [place] [address] Tatiana Alcaraz, LEE [address] [place] [address] YANELI HATHAWAY Start: 07-07-2025 End: 07-07-2025 Professional / ancillary services management 07/07/2025 1:00 PM EDT Ancillary Procedure YANELI HATHAWAY [address] [place] [address] YANELI [place] OBM[facility]INDA Start: 06-14-2025 Screening for malign ant neoplasm of cervix PAP SMEAR [facility] Start: 06-09-2025 End: 07-09-2025 Alpha fetoprotein, maternal Alpha fetoprotein, maternal Lab Routine 17 weeks gestation of ([facility]) Second trimester ([facility]) Expected: 06/09/2025 (Approximate), Expires: 07/09/2025 [facility] Comment on above: Expected: 06/09/2025 (Approximate), Expires: 07/09/2025 Start: 06-09-2025 End: 09-08-2025 US for US OB 14+ weeks anatomy scan Imaging Routine Screening, , for anatomic survey ([facility]) Expected: 06/09/2025, Expires: 09/08/2025 [facility] Comment on above: Expected: 06/09/2025 , Expires: 09/08/2025 Start: 06-09-2025 End: 06-09-2025 Patient encounter procedure 06/09/2025 10:40 AM EDT Routine YANELI HATHAWAY [address] [place] [id number] Robi Robertson, DO [address] [place] [address] YANELI HATHAWAY Start: 05-08-2025 End: 05-08-2026 ABO/Rh ABO/Rh Lab Routine Missed menses , unspecified gestational age ([facility]) Expected: 05/08/2025 (Approximate), Expires: 05/08/2026 [facility] Comment on above: Expected: 05/08/2025 (Approximate), Expires: 05/08/2026 Start: 05-08-2025 End: 05-08-2026 Blood type and Indirect antibody screen panel - Blood Type and screen Lab Routine Missed menses , unspecified gestational age ([facility] Expected: 05/08/2025 (Approximate), Expires: 05/08/2026 [facility] Comment on above: Expected: 05/08/2025 (Approximate), Expires: 05/08/2026 Start: 05-08-2025 End: 05-08-2026 Drugs of abuse panel - Urine by Screen method Rapid drug screen, urine Lab Routine , unspecified gestational age ([facility]) Encounter for supervision of normal first in first trimester ([facility]) Expected: 05/08/2025 (Approximate), Expires: 05/08/2026 [facility] Comment on above: Expected: 05/08/2025 (Approximate), Expires: 05/08/2026 Start: 05-07-2025 End: 08-07-2025 US Pelvis transvaginal US OB transvaginal Imaging Routine Missed menses Positive urine test ([facility]) Expected: 05/07/2025, Expires: 08/07/2025 [facility] Work Phone: Comment on above: Expected: 05/07/2025 , Expires: 08/07/2025 Start: 01-30-2025 End: 01-30-2025 Patient encounter procedure 01/30/2025 10:50 AM EDT Office Visit [facility] [address] [place] [id number] Robi Robertson, DO [address] [place] [address] [place] [address] [facility] Start: 01-15-2025 Urine culture [facility] Start: 01-15-2025 Bacteria identified in Urine by Culture Urine Culture [facility] Start: 06-20-2023 End: 06-20-2023 Patient encounter procedure 06/20/2023 Office Visit Obstetrics and Gynecology Belle Ochoa APRN AUTO DESIGN CHECKER [address] [place] [address] [facility] Start: 06-15-2023 ANNUAL WELLNESS VISIT ANNUAL WELLNES S VISIT [facility] Start: 06-14-2023 CHLAMYDIA SCREENING CHLAMYDIA SCREEN [facility] Start: 06-02-2023 Influenza vaccinatio n given INFLUENZA VACCINE (Season Ended) [facility] Start: 06-02-2022 Influenza vaccinatio n given INFLUENZA VACCINE (Season Ended) [facility] Start: 05-25-2022 End: 05-25-2022 Patient encounter procedure 05/25/2022 Office Visit Obstetrics and Gynecology Belle Ochoa APRN AUTO DESIGN CHECKER [address] [place] [address] [facility]ECOLOG [facility] Start: 02-24-2022 CHLAMYDIA SCREENING CHLAMYDIA SCREEN [facility] Start: 12-21-2021 CHLAMYDIA SCREENING CHLAMYDIA SCREEN [facility] Start: 11-26-2021 CHLAMYDIA SCREENING CHLAMYDIA SCREEN [facility] Start: 10-18-2021 End: 10-18-2021 Patient encounter procedure 10/18/2021 Office Visit Dentistry Alka Adams, DDS [address] [place] [address] [facility] Start: 2021 Screening for malign ant neoplasm of cervix PAP SMEAR [facility] Start: 07-22-2021 End: 07-22-2021 Patient encounter procedure 07/22/2021 Office Visit Dentistry Alka Adams, DDS [address] [place] [address] [facility] Start: 06-02-2021 Influenza vaccinatio n given [facility] Start: 05-12-2021 End: 05-12-2021 ambulatory 05/12/2021 Visit Obstetrics and Gynecology Nicole Rodarte, DO [address] [place] [address] [phone] [facility] Start: 03-10-2021 End: 03-10-2021 Patient encounter procedure 03/10/2021 Routine Obstetrics and Gynecology Nicole Rodarte, DO [address] [place] [address] [facility] Start: 03-04-2021 End: 03-04-2021 Patient encounter procedure 03/04/2021 Routine Obstetrics and Gynecology Nicole Rodarte, DO [address] [place] [address] [phone] [facility] Start: 02-24-2021 End: 02-24-2021 Patient encounter procedure 02/24/2021 Routine Obstetrics and Gynecology Nicole Rodarte, DO [address] [place] [address] [phone] [facility] Start: 02-11-2021 End: 02-11-2021 Patient encounter procedure 02/11/2021 Routine Obstetrics and Gynecology Nicole Rodarte, DO [address] [place] [address] [facility] Start: 01-11-2021 End: 01-11-2021 Routine 01/11/2021 Routine Obstetrics and Gynecology Nicole Rodarte, DO [address] [place] [address] [phone] [facility] OBSTETRICS/GYNECOLOG Y Start: 12-24-2020 End: 12-24-2020 Routine 12/24/2020 Routine Obstetrics and Gynecology Nicole Rodarte DO [address] [facility] [address] [place] [address] [phone] [facility] OBSTETRICS/GYNECOLOG Y Start: 06-02-2020 Influenza vaccinatio n given INFLUENZA VACCINE (#1) [facility] Start: 2018 ANNUAL WELLNESS VISIT ANNUAL WELLNES S VISIT [facility] Start: 2016 CHLAMYDIA SCREENING CHLAMYDIA SCREEN ING [facility] Start: 2012 Adult depression screening assessment DEPRESSION SCREENING [facility] Start: 2012 Depression screening using PHQ-9 (Patient Health Questionnaire 9) score DEPRESSION SCREENING [facility] Start: 2011 Diphtheria + pertuss is + tetanus vaccine (product) DTAP/TDAP/TD VACCINE (1 - Tdap) [facility] Start: 2011 Human papilloma viru s vaccination given HPV VACCINES (GARDASIL) (1 - 2-dose series) [facility] Start: 2011 Vaccination for gabe n papillomavirus HPV VACCINES (GARDASIL) (1 - 2-dose series) [facility] Start: 2005 COVID-19 VACCINE (1) COVID-19 VACCIN E (1) [facility] Start: 02-24-2001 COVID-19 VACCINE (#1) COVID-19 VACCI NE (#1) [facility] Bacteria identified in Urine by Culture Urine culture Microbiology Routine Missed menses Ordered: 05/08/2025 [facility] Comment on above: Ordered: 05/08/2025 CBC W Auto Different ial panel - Blood CBC and differential Lab Routine Missed menses , unspecified gestational age ([facility]) Ordered: 05/08/2025 [facility] Comment on above: Ordered: 05/08/2025 CHLAMYDIA TRACHOMATI S (GENITO/STI) CHLAMYDIA TRACHOMATIS (GENITO/STI) Lab Routine Exposure to STD Ordered: 06/09/2025 [facility] Comment on above: Ordered: 06/09/2025 End: 11-26-2020 Chlamydia trachomatis+Neisseria gonorrhoeae rRNA [Presence] in Cervix by Probe GC &Chlamydia Microbiology Routine Late care affecting in second trimester 1 Occurrences starting 11/26/2020 until 11/26/2020 [facility] Comment on above: 1 Occurrences starti ng 11/26/2020 until 11/26/2020 Chlamydia trachomatis+Neisseria gonorrhoeae rRNA [Presence] in Cervix by Probe [facility] End: 12-21-2020 Chlamydia trachomatis+Neisseria gonorrhoeae rRNA [Presence] in Cervix by Probe GC & CHLAMYDIA AMPLIFIED PROBE Microbiology Routine 27 weeks gestation of Chlamydia trachomatis infection in mother during second trimester of 1 Occurrences starting 12/21/2020 until 12/21/2020 [facility] Comment on above: 1 Occurrences starti ng 12/21/2020 until 12/21/2020 End: 02-24-2021 Chlamydia trachomatis+Neisseria gonorrhoeae rRNA [Presence] in Cervix by Probe GC & Chlamydia Amplified Probe Microbiology Routine 36 weeks gestation of Chlamydia trachomatis infection in mother during second trimester of 1 Occurrences starting 02/24/2021 until 02/24/2021 [facility] Comment on above: 1 Occurrences starti ng 02/24/2021 until 02/24/2021 End: 06-08-2021 COVID-19 (2019 NOVEL CORONAVIRUS) [facility] Work Phone: Comment on above: One Time [...] trimester 1 Occurrences starting 11/26/2020 until 11/26/2020 [facility] Comment on above: 1 Occurrences starti ng 11/26/2020 until 11/26/2020 Drug Screen Urine Extended Panel Drug Screen Urine Extended Panel Lab Routine Late care affecting in second trimester 11/26/2020 3:23 PM EST [facility] nonstress test nonst ress test OB Routine Daily 0500 until discontinued starting 03/07/2021 [facility] Comment on above: Daily 0500 until dis continued starting 03/07/2021 End: 02-24-2021 Genital Group B Strep Screen [facility] B Strep Screen Microbiology Routine 36 weeks gestation of 1 Occurrences starting 02/24/2021 until 02/24/2021 [facility] Comment on above: 1 Occurrences starti ng 02/24/2021 until 02/24/[address] p Screen Genital Group B Strep Screen Microbiology Routine 36 weeks gestation of 02/24/2021 10:07 PM EDT [facility] Hemoglobin A1c/Hemoglobin.total in Blood Hemoglobin A1c Lab Routine Missed menses , unspecified gestational age ([facility]) Ordered: 05/08/2025 [facility] Comment on above: Ordered: 05/08/2025 Hepatitis B virus surface Ag [Presence] in Serum or Plasma by Immunoassay Hepatitis B surface antigen Lab Routine Missed menses , unspecified gestational age ([facility]) Ordered: 05/08/2025 [facility] Comment on above: Ordered: 05/08/2025 Hepatitis C virus Ab [Presence] in Serum or Plasma by Immunoassay Hepatitis C antibody Lab Routine Missed menses , unspecified gestational age ([facility]) Ordered: 05/08/2025 [facility] Comment on above: Ordered: 05/08/2025 HIV-1/HIV-2 antigen/antibody combination immunoassay HIV-1 and HIV-2 antibodies Lab Routine Missed menses , unspecified gestational age ([facility]) Ordered: 05/08/2025 [facility] Comment on above: Ordered: 05/08/2025 Neisseria gonorrhoea e DNA [Presence] in Unspecified specimen by MARIZA with probe detection Neisseria gonorrhea DNA probe, direct Lab Routine Exposure to STD Ordered: 06/09/2025 [facility] Comment on above: Ordered: 06/09/2025 End: 03-06-2021 POCT Nitrazine Test POCT Nitrazine Test OB Routine One Time for 1 Occurrences starting 03/06/2021 until 03/06/2021 [facility] Comment on above: One Time for 1 Occur rences starting 03/06/2021 until 03/06/2021 PANEL WITH HIV Panel with HIV Lab Routine Late care affecting in second trimester 11/26/2020 3:26 PM EST [facility] Reagin Ab [Presence] in Serum by RPR RPR Lab Routine Missed menses , unspecified gestational age ([facility]) Ordered: 05/08/2025 [facility] Comment on above: Ordered: 05/08/2025 Rubella antibody, IgG Rubella an tibody, IgG Lab Routine Missed menses , unspecified gestational age ([facility]) Ordered: 05/08/2025 [facility] Comment on above: Ordered: 05/08/2025 End: 02-04-2022 SARS-COV-2, TMA [employer] Work Phone: Comment on above: One Time for 1 Occur rences starting 02/04/2022 until 02/04/2022 End: 02-06-2022 SARS-COV-2, [facility] [employer] Work Phone: Comment on above: One Time for 1 Occur rences starting 02/06/2022 until 02/06/2022 SURESWAB(R) ADVANCED VAGINITIS PLUS, TMA SURESWAB(R) ADVANCED VAGINITIS PLUS, [facility]MA Pathology and Cytology Routine Vaginal discharge Ordered: 06/09/2025 [facility] [employer] Work Phone: Comment on above: Ordered: 06/09/2025 End: 11-26-2020 Urine culture and sensitivity Urine culture and sensitivity Microbiology Routine Late care affecting in second trimester 1 Occurrences starting 11/26/2020 until 11/26/2020 [employer] [facility] Comment on above: 1 Occurrences starti ng 11/26/2020 until 11/26/2020 Urine culture and sensitivity Urine culture and sensitivity Microbiology Routine Late care affecting in second trimester 11/26/2020 3:23 PM EST [employer] [facility] US Pelvis transvaginal US OB tra nsvaginal Imaging Routine Missed menses Positive urine test ([facility]) 05/08/2025 12:54 PM EDT [facility] Immunizations Immunization Date Immunization Notes Care Provider Fa cility 03-04-2021 tetanus toxoid, reduced diphtheria toxoid, and acellular pertussis vaccine, adsorbed Stacy Alonso MD Work Phone: [employer] 08-26-2008 influenza virus vaccine, unspecified formulation Tatiana Lewis MD Work Phone: [employer] NEGATED: Highlighted row has not occurred!03-22-2021 measles, mumps and rubella virus vaccine Tatiana Lewis MD Work Phone: [facility] Comment on above: Deferred: - immune Payers Date Payer Category Payer Self-pay 2024 Medicaid (Managed Care) [facility] MEDICAID [id number] 2024 Unknown [id number] 2020 Medicaid [id number] 2020 Medicaid [facility] [id number] 2020-Present [phone] [place] [address] Medicaid [id number] 2000 Unknown [id number] 2000 Unknown [id number] 297 2000 Unknown [id number] 2000 Unknown [id number] 297 2000 Unknown [id number] [id number] 2000 Unknown [id number] 1259 2000 Unknown [id number] 1259 2000 Unknown [id number] 1259 2000 Unknown [id number] [id number] Social History Date Type Detail Facility Start: 08-14-2020 End: 02-04-2022 Tobacco smoking status MNIS Former smoker [facility] Start: 08-14-2020 End: 06-14-2022 Tobacco use and exposure Never used [facility] Start: 2000 Sex Assigned At Not on file [facility] Start: 01-27-2023 End: 02-07-2023 Exposure to SARS-CoV-2 (event) Not sure [facility] End: 11-02-2020 History of tobacco use Current smoker [facility] Start: 11-26-2020 End: 02-04-2022 Alcohol intake Ex-drinker (finding) [facility] Start: 06-29-[address] [facility] Exposure to SARS-CoV-2 (event) Unable to assess [facility] Start: 2000 Sex Assigned At Female [facility] Work Phone: Start: 09-21-2021 End: 06-14-2022 Tobacco smoking status MNIS Current every day smoker [facility] Work Phone: History of tobacco use Tobacco Use Types Packs/Day Years Used Date Smoking Tobacco: Every Day E-Cig/Vaping Smokeless Tobacco: Never [facility] Start: 02-07-2023 Alcohol intake Current drinke r of alcohol (finding) [facility] Start: 06-14-2022 Alcohol Comment occ [facility] Tobacco smoking status [facility] Tobacco smoking consumption unknown [facility] Gender identity Not on file [facility] Start: 01-17-2025 Sex Patient sex un known (finding) [facility] Clinical Notes 02-03-2021 to 06-09-2025 Ariella Wells, DRIVING TEACHER - 06/09/2025 10:40 AM Hernan Pitts, ANTHONY [...] nursing note reviewed. Exam conducted with a addressograph operator present. Vitals: There is no height or weight on file to calculate BMI. BP: 118/68 Patient's last menstrual period was 04/14/2025. ASSESSMENT & PLAN ICD-10-CM 1. 17 weeks gestation of ([facility]) Z3A.17 POCT urinalysis dipstick manually resulted Alpha fetoprotein, maternal Alpha fetoprotein, maternal 2. Second trimester ([facility]) Z34.92 POCT urinalysis dipstick manually resulted Alpha fetoprotein, maternal Alpha fetoprotein, maternal 3. Screening, , for anatomic survey ([facility]) Z36.89 US OB 14+ weeks anatomy scan [...] obtained without difficulty and patient was given [facility] order to have obtained. Orders Placed This Encounter Procedures US OB 14+ weeks anatomy scan CHLAMYDIA TRACHOMATIS (GENITO/STI) Neisseria gonorrhea DNA probe, direct Alpha fetoprotein, maternal POCT urinalysis dipstick manually resulted Follow Up: Patient is to return to our office in 4 weeks for routine OB appointment Documented by Ariella Wells LPN on behalf of: Tatiana lAcaraz NP documented in this encounter [facility] [place] urinalysis dipstick manually resulted Positive urine test ([facility]) - US OB transvaginal; Future , unspecified gestational age ([facility]) - Type and screen; Future - ABO/Rh; Future - CBC and differential - Hemoglobin A1c - RPR - Rubella antibody, IgG - Hepatitis B surface antigen - Hepatitis C antibody - HIV-1 and HIV-2 antibodies - Rapid drug screen, urine; Future Encounter for supervision of normal first in first trimester ([facility]) - Rapid drug screen, urine; Future Nurse [...] or undercooked meat, and stay away from [facility]. Patient has also been advised to not change litter boxes and eat 6 small meals a day. Patient has been consulted regarding the do's and don'ts of . Patient was given labs and all questions and concerns were answered. Patient given [place] to have obtained with Initial labs. Patient [...] arm, pt ambulates to lobby with ease. [facility] 02-07-2023 Emergency department Note Discharge instructions given [...] distress during triage. documented in this encounter [facility] 02-07-2023 Emergency department Note Pt ambulates to [...] unlabored, airway patent, skin pwd, NAD noted. [facility] 02-06-2023 Emergency department Triage note Pt arrives to the ED for throat tightness. Onset over last 1 1/2 hour. Denies any throat pain, just tightness. Denies any known for cause. Pt A & O. Resp reg. Speech is clear. No distress during triage. [facility] 10-15-2021 Note CLINICAL HISTORY: Patient is a [...] account for the patient's pain. Normal examination. [facility] 03-24-2021 Miscellaneous Notes Dischg'd to home in [...] Size: 3 Other Children in home: 0 Paper Cutter / Family Physician: Dr Porras Problem List: Psychiatric History Community Agencies Involved: [facility] Assessment:: MOB has hx of anx. Reports that she gets nervous but is okay. MOB reports she has hx of dep but hasn't had it [id number]. PPD handout provided with verbal edu on [...] not included. Rosina Vergara Social Worker IP Pitch Filler D/C Planning Signed Note Time: 03/22/211508 Creation [...] needs. Vaginal Delivery Note Eva Roberta 2000 [id number] 20 y.o. at 40w0d gestation Delivering Advance Scout: Tatiana Lewis Primary Advance Scout: Tatiana Lewis Pre-Delivery Diagnosis: IUP at 40 [...] applied. SVE 2/70/-3. documented in this encounter [facility] 03-24-2021 Hospital course Narrative Obstetrical Discharge Summary Eva Granados 2000 [id number] 03/21/2021 Delivering OB Clinician: Tatiana Lewis MD [...] doctor in 6 weeks. Release to home iNcole Rodarte 03/24/2021 documented in this encounter [facility] 03-24-2021 History of Presen t illness Narrative [...] 2. Routine care documented in this encounter [facility] 03-22-2021 History and physical note This note [...] for : 37w US: vertex, EFW 3028g ([id number]) 42%ile, SUGAR 15.0cm, post gr3 placenta Late [...] +accelerations, intermittent early, late, and variable decelerations Platte: q 1-3 minutes VE: Complete/+2 station with artificial rupture performed for clear fluid Eva Granados 2000 [id number] 20 y.o. at 40w1d with EDC of Estimated Date of Delivery: 03/22/21 who is being admitted for induction of labor. Her current obstetrical history is remarkable for: 37w US: vertex, EFW 3028g ([id number]) 42%ile, SUGAR 15.0cm, post gr3 placenta Late [...] cephalic FHTs: To be assessed on arrival Platte: To be assessed on arrival Cervix: Last in office Dilation: 1cm Effacement: 50% Station: -3 Damon score: 3 Labs GBS neg Rh pos Impression: 20 y.o. at 40w1d Induction of labor Late PNC at 23w Chlamydia at NOB but 36w recheck neg GBS neg Rh pos Plan: 1. ATSO [place] 2. CEFM + Platte 3. Admission labs 4. Suspect some component of mild blood pressure elevations related to anxiety as happened at [facility] and when seeing a different provider last week. Will update preeclampsia labs on admission as a precautions. 5. Cervical ripening with cytotec, plan to follow with pitocin per protocol once Damon score is more favorable 6. Pain control PRN documented in this encounter [facility] 03-06-2021 Miscellaneous Notes Pt is discharged home [...] with monitors applied. documented in this encounter [facility] 03-06-2021 Hospital Discharg e instructions Nadege Bruce [...] not have a private physician call the [facility] NurseLine right away at or . Contractions [...] according to your Doctor s instructions. [facility] located at [facility] on the [facility]. Warning Signals Possible Complications in Call [...] (use kick count). documented in this encounter [employer] 03-02-2021 Miscellaneous Notes EFM discontinued, pt given [...] pt states understanding. documented in this encounter [facility] 02-03-2021 Miscellaneous Notes Patient provided with verbal [...] applied, education provided. documented in this encounter [facility] 02-03-2021 Hospital Discharg e instructions Jorge Moreira [...] Hydrocortisone. Ask your doctor about taking an pzuf-dpy-xcndfcx stool softener. Consider Experts recommend that women [...] may help to think about your personal, protestant, and family traditions. You get to decide if you will keep your son's penis natural or if he will be circumcised. If you decide that you would like to have your baby circumcised, talk with your doctor. You can share your concerns about pain. And you can discuss your preferences for anesthesia. Where can you learn more? Go to https://www.[employer].[place] [employer]/pat ientEd Enter X711 in the search box to learn more about Weeks 32 to 34 of Your : Care Instructions. Current as of: July 09, 2020 Content Version: 12.8 [employer]. Care instructions adapted under license by your healthcare professional. If you have questions about a medical condition or this instruction, always ask your healthcare professional. [employer] disclaims any warranty or liability for your use of this information. documented in this encounter [facility] Evaluation note Diagnosis 36 weeks gestation of state, incidental Chlamydia trachomatis infection in mother during second trimester of documented in this [facility]* Diagnosis (spontaneous vaginal delivery)- Primary Normal delivery Encounter for induction of labor Normal labor Chlamydia trachomatis infection in mother during second trimester of Late care affecting in second trimester documented in this encounter [facility]* Diagnosis Breast pain, left Mastodynia documented in this encounter [facility]* Diagnosis URI with cough and congestion documented in this encounter [facility]* Diagnosis Sore throat- Primary Acute pharyngitis documented in this encounter [facility] noteNo assessment information available [facility] Work Phone: Evaluation note* Diagnosis Missed menses Positive urine test ([facility]) , unspecified gestational age ([facility]) Encounter for supervision of normal first in first trimester ([facility]) Nonintractable headache, unspecified chronicity pattern, unspecified headache type documented in this encounter [facility] HealthcareEvaluation note* Diagnosis 17 weeks gestation of ([facility]) Second trimester ([facility]) state, incidental Screening, , for anatomic survey ([facility]) Encounter for anatomic survey Exposure to STD Vaginal discharge Leukorrhea, not specified as infective Well woman exam with routine gynecological exam Routine gynecological examination documented in this encounter [facility] HealthcareHospital Discharge instructions* Instructions* Tamiko Melo RN - 03/02/2021 Signs and Symptoms of Labor This is a guide for you about the signs of true labor. If you have any of these signs before 36 weeks of (nine months), please call your private physician. If you do not have a private physician call the [facility] NurseLine right away at or . Contractions [...] Call according to your Doctor s instructions. [facility] is located at [facility] on the [facility]. Warning Signals Possible Complications in Call [...] movement (use kick count). [facility] Instructions* Maile Moses [...] eating high-fiber foods. Ask your doctor about geyz-wpe-yxuyzhq stool softeners. Cleanse yourself with a gentle [...] a few days after delivery. Plan for early childhood specialist if you have other children. Stay [...] Where can you learn more? Go to https://www.[employer].net/patientEd Enter A461 in the search box to learn more about After Your Delivery (the Period): CareInstructions. Current as of: July 09, 2020 Content Version: 12.9 [employer]. Care instructions adapted under license by your healthcare professional. If you have questions about a medical condition or this instruction, always ask your healthcare professional. [employer] disclaims any warranty or liability for your use of this information. * Attachments The following attachments cannot be sent through Care Everywhere. * (Montserratian Djib[place]ian) [facility]* Attachments The following attachments cannot be sent through Care Everywhere. * Sore Throat ([place]serratian [place]iboutian) [facility] (narrative)* Procedure Authorization (Routine) - Closed Specialty Diagnoses / Procedures Referred By Contac t Referred To Contact Diagnoses Breast pain, left Procedures US Breast Left Limited Marianna Abbasi APRN CNP [address] [place] [address] [address] Referral ID Status Reason Start Date Expiration Date Visits Re quested Visits Authorized [id number] Closed 09/21/2021 10/22/2022 1 1 [facility] N[facility]ative* Procedure Authorization (Routine) - Closed Specialty Diagnoses / Procedures Referred By Contac t Referred To Contact Diagnoses Breast pain, left Procedures US Breast Left Limited Marianna Abbasi APRN CNP [address] [place] [address] [facility] [address] [place] [phone] Referral ID Status Reason Start Date Expiration Date Visits Re quested Visits Authorized [id number] Closed 09/21/2021 10/22/2022 1 1 [facility] Reason for Referral Status Reason Specialty Diagnoses / Procedures Referred By Contact Referred To Contact [facility] Maintenance Mechanic / Dentistry Diagnoses Pain, dental Jaw swelling Aliya Cao DO [address] [place] [address] [facility] [address] [place] [address] Status Reason Specialty Diagnoses / Procedures Referred By Contact Referred To Contact [facility] Diagnoses Pain, dental Jaw swelling Aliya Cao DO [address] [place] [address] [facility] [address] [facility] [place] [address] [place] [address] Discharge Instructions * Instructions* Aliya Cao DO - 08/14/2020 No driving or operating heavy machinery while taking norco - no extra tylenol * Attachments The following attachments cannot be sent through Care Everywhere. * Tooth and Gum Pain (Montserratian Djiboutian) documented in this encounter Assessments Diagnosis Pain, [...] Documents on File Type Date Recorded Patient Oncology Consultant Expl anation Advance Directives and Living Will Power of Pbx Wire Chief Documents on File Type Date Recorded Patient Oncology Consultant Expl anation Advance Directives and Living Will Power of Pbx Wire Chief Latest Code Status on File Code Status [...] Documents on File Type Date Recorded Patient Oncology Consultant Expl anation Advance Directives and Living Will Power of Pbx Wire Chief DNR Documentation Latest Code Status on File Code Status Date Activated Date Inactivated Comments Full Code 03/22/2021 5:16 AM 03/24/2021 7:51 PM Full Code 03/22/2021 1:13 AM 03/22/2021 5:16 AM Full Code 03/21/2021 9:27 PM 03/22/2021 1:13 AM Full Code 03/19/2021 11:50 AM 03/21/2021 9:27 PM Full Code 03/06/2021 9:45 PM 03/07/2021 4:11 AM Documents on File Type Date Recorded Patient Oncology Consultant Expl anation Advance Directives and Living Will Power of Pbx Wire Chief DNR Documentation Summary Purpose Family History No [...] (Given - Provider: Maile Moses RN) TdaP onpowhr-rwifmimtin-orbe lular pertussis (BOOSTRIX) injection 0.5 mL 0.5 [...] January 15, 2025 End: January 15, 2025 Security Public Safety Officer Relationship Specialty Start Date End Date Pcp, None [address] [place] [address] PCP - General 08/14/20 INFORMATION SOURCE (unrecogn ized section and content) DATE CREATED AUTHOR 03/13/2023 [facility] DATE CREATED AUTHOR AUTHOR'S ORGANIZ ATION 04/22/2025 [facility] DATE CREATED AUTHOR AUTHOR'S ORGANIZ ATION 06/10/2025 [facility] EPIC Goals (unrecognized section and [...] BE BASED ON THE PRIMARY CLINICAL RECORDS. [employer] [facility]. provides no warranty or guarantee of the accuracy or completeness of information in this document.
[2025-07-07 20:13] LABS: Cannabinoid Screen Urine NEGATIVE (NEGATIVE); Methamphetamines Screen Urine NEGATIVE (NEGATIVE); Tricyclic Antidepressant Urine NEGATIVE (NEGATIVE)
== END 2025-07-07 19:51 | disposition home or self-care (01) ==
LOC: LAB 19:50
PROVIDERS: PCP Nurse Practitioner Family; Visit Provider Obstetrics & Gynecology
DX: Z34.01 Encounter for supervision of normal first pregnancy, first trimester (principal)
CPT/HCPCS: 80307

== ENCOUNTER 2025-08-25 10:31 | Outpatient (OUT) | payer OTHER, SELFPAY ==
--- OUTSIDE RECORDS SUMMARY | 2025-08-25 09:20 | XMS_ITS | Encounter Summary ---
Author Organization [facility] Address [address] [place] [address] Care Team Providers Care Support Teacher Name Role Phone Unavailable Primary Care Provider Unavailabl e Reason for Visit * ReasonCommentsRoutine Visit Encounter Details DateTypeDepartmentCare Team (Latest Contact Info)Wljyespjdvb37/24/2025 9:20 AM ESTRoutine [facility] [address] [place] [address] Aliya Ochoa PA [address] [place], [facility] Third trimester ([facility] 28 weeks gestation of ([facility]); , unspecified gestational age ([facility]); HSV infection; H/O: HTN (hypertension) Social History Tobacco UseTypesPacks/DayYears UsedDateSmoking Tobacco: Never Assessed Estimated Date of UneebyyqSnexwnqiMsz69/15/2026ased on Ultrasound, [id number] and Gender InformationValueDate RecordedSex Assigned at BirthNot on fileLegal ZbuVerzam18/10/2025 9:11 AM EDTGender IdentityNot on fileSexual OrientationNot on filedocumented as of this encounter Last Filed Vital Signs Vital SignReadingTime TakenCommentsBlood Uqnekvuq552/6808/25/2025 9:42 AM EST Pulse--Temperature--Respiratory Rate--Oxygen Saturation--Inhaled Oxygen Concentration--Julecr94.4 kg (186 lb)08/25/2025 9:42 AM ESTHeight--Body Mass Index--documented in this encounter Plan of Treatment DateTypeDepartmentCare Team (Latest Contact Info)Zdgeepdrboq48/08/2025 1:30 PM ESTRoutine [facility] [address] [place] [id number] Robi Robertson DO [address] [place] [address] [place] [address] documented as of this encounter Procedures Procedure NamePriorityDate/TimeAssociated DiagnosisCommentsPOCT URINALYSIS WNTTULRAHawqrsh20/24/2025 9:43 AM EST Third trimester ([facility]) documented in this encounter Results * (ABNORMAL) POCT urinalysis dipstick manually resulted (08/25/2025 9:43 AM EST) ComponentValueRef RangeTest MethodAnalysis TimePerformed AtPathologist SignatureColor, UAAmberClarity, UAClearGlucose, UANegativeNegative - 2000(110) ++++ mg/dLBilirubin, UANegativeNegative - 4(70) +++ mg/dLKetones, UANegative Negative - 160(16) ++++ mg/dLSpec Grav, UA1.0201 - 1.03Blood, UANegative Negative - 50 Obey/mcLpH, UA6.05 - 9Protein, UANegativeNegative - 2000(20) ++++ mg/dLUrobilinogen, UA1.00.2 - 12 mg/dLLeukocytes, UA1+Negative - 500+++ Hai/mcLNitrite, UANegativeNegative - PositiveSpecimen (Source)Anatomical Location / LateralityCollection Method / VolumeCollection TimeReceived Time Urine08/25/2025 9:43 AM EST Narrative Authorizing ProviderResult TypeResult StatusCarilion [facility] TEST ENTER/EDIT ORDERABLESFinal Result documented in this encounter Visit Diagnoses Diagnosis Third trimester ([facility]HS-HCC) state, incidental 28 weeks gestation of ([facility]) , unspecified gestational age ([facility]) HSV infection Herpes simplex without mention of complication H/O: HTN (hypertension) Personal history of other diseases of circulatory system documented in this encounter
--- OUTSIDE RECORDS SUMMARY | 2025-08-25 10:37 | XMS_ITS | Patient Health Record ---
Author Organization [facility] in [place] Address [address] [place] [address] Care Team Providers Care Overhead Worker Name Role Phone Tata Cueva Primary Care Provider [phone] Allergies No Known Allergies Results Component Value Reference Range Notes PROF 14(COMP METB) Reviewed date:01/16/2025 11:54:33 AM Interpretation: Performing Lab: Notes/Report: [facility] , Sodium 138 136-145 mmol/L Potassium4.13.5-5.1 mmol/XFzvhvrwj33730-885 mmol/LCarbon Blrkbpz13.221.0-32.0 mmol/LAnion Gap13.4Hwzysmf6571-883 mg/dLBlood Urea Nitrogen8.07.0-18.0 mg/dL Creatinine0.680.55-1.02 mg/dLEstimated GFR ( Charo>60>=60 mL/min/1.73m 2Estimated GFR (Non- Judy>60>=60 mL/min/1.73m 2BUN Creatinine Ratio11.8 Calcium9.28.5-10.1 mg/dLBilirubin Total1.40.2-1.0 mg/dLAspartate Amino Judzlfubceo7706-22 U/LAlanine Vhipzbnmpxbjhsgk3085-92 U/LAlkaline Jvgsfwwznhe62 46-116 U/LTotal Protein7.36.4-8.2 g/dLAlbumin Level4.03.4-5.0 g/dLGlobulin3.3 Albumin Globulin Ratio1.2Performing Lab:see noteML - [facility] LB Urine Culture - [facility] Reviewed date:01/20/2025 02:51:06 PM Interpretation: Performing Lab: Notes/Report: [facility] ,Urine Culture - FRMCSee Below For Report Urine Culture - [facility] >100,000 colonies/ml mixed Urine Culture - FRMCbacterial skin contaminants Urine Culture - [facility] >100,000 colonies/ml mixed Urine Culture - [facility]2 Days Urine Culture - [facility] >100,000 colonies/ml mixed Urine Culture - [facility] Urine Culture - [facility] >100,000 colonies/ml mixed U[facility] - [facility] >100,000 colonies/ml mixed Urine Culture - [address] [place] [address] Urine Culture - [facility] >100,000 colonies/ml mixed Performing Lab:see noteML - [facility] LBCBC AUTO DIFF Reviewed date:01/23/2025 11:55:01 AM Interpretation: Performing Lab: Notes/Report: [facility] ,White Blood Count6.94.0-11.0 10 3/uLRed Blood Count3.964.20-5.40 10 6/uL Lfizyxiujo37.212.0-16.0 g/tXOexghxjijb45.936.0-48.0 %Mean Corpuscular Qwdrwc12.1 81.0-99.0 fLMean Corpuscular Dwavlxsleb71.826.7-34.0 pgMean Corpuscular HGB Conc 35.029.9-35.2 g/dLRed Cell Distribution Width13.211.0-15.0 %Platelet Bjlrf924 150-450 10 3/uLMean Platelet Volume9.99.5-13.5 fLNeutrophils Percent Auto72.7 43.0-75.0 %Lymphocytes Percent Auto19.320.5-60.0 %Monocytes Percent Auto6.11.7- 12.0 %Eosinophils Percent Auto1.20.9-7.0 %Basophils Percent Auto0.60.2-2.0 % Immature Granulocytes Pct Auto0.10.0-0.5 %Neutrophils Absolute Auto5.01.4-6.5 10 3/uLLymphocytes Absolute Auto1.31.2-3.8 10 3/uLMonocytes Absolute Auto0.40.3-0.8 10 3/uLEosinophils Absolute Auto0.10.0-0.7 10 3/uLBasophils Absolute Auto0.00.0- 0.1 10 3/uLImmature Granulocytes Abs Auto0.010.00-0.03 10 3/uLPerforming Lab:see noteML - [facility] LBCBC AUTO DIFF Reviewed date:01/24/2025 01:09:47 PM Interpretation: Performing Lab: Notes/Report: [facility] ,White Blood Count5.54.0-11.0 10 3/uLRed Blood Count3.724.20-5.40 10 6/uL Jrcedxjdrv86.412.0-16.0 g/zAOvdjusnhny81.336.0-48.0 %Mean Corpuscular Lzmmny57.5 81.0-99.0 fLMean Corpuscular Fhohudihsy47.626.7-34.0 pgMean Corpuscular HGB Conc 34.229.9-35.2 g/dLRed Cell Distribution Width12.911.0-15.0 %Platelet Eubif699 150-450 10 3/uLMean Platelet Volume9.99.5-13.5 fLNeutrophils Percent Auto59.7 43.0-75.0 %Lymphocytes Percent Auto30.720.5-60.0 %Monocytes Percent Auto7.31.7- 12.0 %Eosinophils Percent Auto1.50.9-7.0 %Basophils Percent Auto0.40.2-2.0 % Immature Granulocytes Pct Auto0.40.0-0.5 %Neutrophils Absolute Auto3.31.4-6.5 10 3/uLLymphocytes Absolute Auto1.71.2-3.8 10 3/uLMonocytes Absolute Auto0.40.3-0.8 10 3/uLEosinophils Absolute Auto0.10.0-0.7 10 3/uLBasophils Absolute Auto0.00.0- 0.1 10 3/uLImmature Granulocytes Abs Auto0.020.00-0.03 10 3/uLPerforming Lab:see noteML - [facility] LBType and Screen Reviewed date:05/09/2025 08:35:03 AM Interpretation: Performing Lab: Notes/Report: [facility] ,Blood TypeO PositiveAntibody ScreenNEGATIVEHIV Ab/p24 Ag with Reflex Reviewed date:05/09/2025 08:35:03 AM Interpretation: Performing Lab: Notes/Report: [facility] ,HIV Ab/p24 Ag ScreenNon ReactiveNon Reactive HIV Negative [address], [place] [phone] detected. There is no laboratory evidence of HIV infection. HIV-1/HIV-2 antibodies and HIV-1 p24 antigen were NOT Hospice Massage Therapist: Tariq Simpson PhD, Phone: [phone] Performed at: [facility] Performing Lab:see note - [facility] LBUnity Box Reviewed date:05/09/2025 08:35:03 AM Interpretation: Performing Lab: Notes/Report: [facility] ,BOX Test Sent OutUNITY BOXBOX Test Reference LabUNITYBOX Test Date Sent05/08/25 Performing Lab:see note - [facility] LBUS OB <= 14 weeks fetus Reviewed date:05/12/2025 10:28:28 AM Interpretation: Performing Lab: Notes/Report: Source Facility: [place] [address] [place] [address] Ultrasound Report Signed Patient: EVA GRANADOS MR#: [id number] : 2000 Acct:[id number] Age/Sex: 24 / F ADM Date: 05/12/25 Loc: ER Attending Dr: Ordering Physician: Gen Mtz M.D. Date of Service: 05/12/25 Procedure(s): US OB <= 14 weeks fetus Accession Number(s): [id number] cc: TATA CUEVA ; Gen Mtz M.D. [place] [address] Patient Name: EVA GRANADOS MRN: [id number] date: 2000 Sex: F Assigned Patient Location: ER Current Patient Location: ER Accession/Order Number: [id number] Exam Date: 05/12/2025 10:15 Report Date: 05/12/2025 10:17 At the request of: GEN MTZ MD Procedure: US OB <= 14 weeks fetus Obstetrical ultrasound INDICATION: Vaginal bleeding COMPARISON: 01/21/2025 FINDINGS: Within the uterus, single live intrauterine gestation in cephalic position. Kunkle-rump length is 6.8 cm. Amniotic volume subjectively normal. Placenta location anterior. heart rate 144 beats for minute. Cervical length 5.2 cm, closed. Gestational age 13 weeks 1 days. US/US OB <= 14 weeks fetus IMPRESSION: Single live intrauterine with heart rate 144 beats per minutes Impression dictated by: Bertin Burger M.D. 05/12/2025 10:17 AM Dictation Location: [employer] Electronically authenticated by: [id number] Y Date: 05/12/2025 10:17 Dictated By: Bertin Burger M.D. Signed By: 05/12/25 1020 DD/ 1017 TD/TT: Style Advisor:DRUG SCREEN RAPID (URINE) Reviewed date:07/08/2025 08:36:07 AM Interpretation: Performing Lab: Notes/Report: [facility] ,Cannabinoid Screen UrineNEGATIVENEGATIVEPhencyclidine Screen UrineNEGATIVE NEGATIVECocaine Screen UrineNEGATIVENEGATIVEMethamphetamines Screen Urine NEGATIVENEGATIVEOpiate Screen UrineNEGATIVENEGATIVEAmphetamine Screen Urine NEGATIVENEGATIVEBenzodiazepines Screen UrineNEGATIVENEGATIVETricyclic Antidepressant UrineNEGATIVENEGATIVEMethadone Screen UrineNEGATIVENEGATIVE Barbiturates Screen UrineNEGATIVENEGATIVEOxycodone Screen UrineNEGATIVENEGATIVE Buprenorphine Screen UrineNEGATIVENEGATIVE JUDSON (Cocaine): 150 ng/mL BZO (Benzodiazepines): 150 ng/mL BAR (Barbiturates): 200 ng/mL AMP (Amphetamine): 500 ng/mL FOLLOWS: THC (Cannabinoids): 50 ng/mL PCP (Phencyclidine): 25 ng/mL DRUG CLASS TEST SYSTEM CUT-OFF CONCENTRATIONS ARE OXY (Oxycodone): 100 ng/mL OPI (Opiates): 100 ng/mL TCA (Trycyclic Antidepressants): 300 ng/mL MTD (Methadone): 200 ng/mL mAMP (Methamphetamine): 500 ng/mL BUP (Buprenorphine): 10 ng/mL Performing Lab:see noteML - [facility] LBUS OB cervical length Reviewed date:07/08/2025 08:34:38 AM Interpretation: Performing Lab: Notes/Report: Source Facility: [place] [address] Ultrasound Report Signed Patient: EVA GRANADOS MR#: [id number] : 2000 Acct:[id number] Age/Sex: 24 / F ADM Date: 07/07/25 Loc: US Attending Dr: Lexi Alcaraz Ordering Physician: Lexi Alcaraz Date of Service: 07/07/25 Procedure(s): US OB cervical length Accession Number(s): [id number] cc: TATA CUEVA ; Lexi Alcaraz [place] [address] Patient Name: EVA GRANADOS MRN: [id number] date: 2000 Sex: F Assigned Patient Location: Current Patient Location: Accession/Order Number: [id number] Exam Date: 07/07/2025 13:57 Report Date: 07/08/2025 08:12 At the request of: LEXI ALCARAZ Procedure: US OB cervical length CLINICAL DATA: Anatomy survey COMPARISON: 05/12/2025 ULTRASOUND OB ANATOMY There is a single live intrauterine gestation in breech presentation. There is cardiac and somatic activity with heart rate of 146 bpm. The amniotic fluid volume is subjectively normal. The placenta is anterior and fundal and unremarkable in appearance and position. The neural axis and all 4 extremities were surveyed by the tire regrooving machine operator and no abnormalities were detected. The stomach, bladder, kidneys, four-chamber heart with right and left ventricular outflow tracts, diaphragm, facial features and male gender are visualized. An echogenic focus is visualized within the left ventricle. This can be a normal variant. The following measurements were obtained: Biparietal diameter 4.9 cm 20 weeks 5 days 33% Head circumference 19.0 cm 21 weeks 2 days 44% Abdominal circumference 16.2 cm 21 weeks 2 days 47% Femur length 3.1 cm 19 weeks 3 days 4% The composite ultrasound age based these measurements is 20 weeks 5 days +/- 1 week 3 days. The estimated date of delivery is 11/19/2025. Estimated weight is 13 ounces +/- 2 ounces (17%) US/US OB cervical length IMPRESSION: SINGLE LIVE INTRAUTERINE GESTATION WITH ULTRASOUND AGE OF 20 WEEKS 5 DAYS. UNREMARKABLE ANATOMY SURVEY. ULTRASOUND OB CERVICAL LENGTH The cervical length was measured with the transvaginal probe. The cervix is closed. Estimated cervical length is approximately 5.1 cm. There is no evidence of previa. IMPRESSION: UNREMARKABLE CLOSED CERVIX. Impression dictated by: Danni Cash M.D. 07/08/2025 8:12 AM Dictation Location: [place] [address] Electronically authenticated by: [id number] Y Date: 07/08/2025 08:12 Dictated By: Danni Cash M.D. Signed By: 07/08/25814 DD/ 1 TD/TT: Style Advisor:US OB anatomy Reviewed date:07/08/2025 08:34:52 AM Interpretation: Performing Lab: Notes/Report: Source Facility: [place] [address] Ultrasound Report Signed Patient: EVA GRANADOS MR#: [id number] : 2000 Acct:[id number] Age/Sex: 24 / F ADM Date: 07/07/25 Loc: US Attending Dr: Lexi Alcaraz Ordering Physician: Lxei Alcaraz Date of Service: 07/07/25 Procedure(s): US OB anatomy Accession Number(s): [id number] cc: TATA CUEVA ; Lexi Alcaraz [place] [address] Patient Name: EVA GRANADOS MRN: [id number] date: 2000 Sex: F Assigned Patient Location: US Current Patient Location: Accession/Order Number: [id number] Exam Date: 07/07/2025 13:57 Report Date: 07/08/2025 08:12 At the request of: LEXI ALCARAZ Procedure: US OB cervical length CLINICAL DATA: Anatomy survey COMPARISON: 05/12/2025 ULTRASOUND OB ANATOMY There is a single live intrauterine gestation in breech presentation. There is cardiac and somatic activity with heart rate of 146 bpm. The amniotic fluid volume is subjectively normal. The placenta is anterior and fundal and unremarkable in appearance and position. The neural axis and all 4 extremities were surveyed by the tire regrooving machine operator and no abnormalities were detected. The stomach, bladder, kidneys, four-chamber heart with right and left ventricular outflow tracts, diaphragm, facial features and male gender are visualized. An echogenic focus is visualized within the left ventricle. This can be a normal variant. The following measurements were obtained: Biparietal diameter 4.9 cm 20 weeks 5 days 33% Head circumference 19.0 cm 21 weeks 2 days 44% Abdominal circumference 16.2 cm 21 weeks 2 days 47% Femur length 3.1 cm 19 weeks 3 days 4% The composite ultrasound age based these measurements is 20 weeks 5 days +/- 1 week 3 days. The estimated date of delivery is 11/19/2025. Estimated weight is 13 ounces +/- 2 ounces (17%) US/US OB anatomy IMPRESSION: SINGLE LIVE INTRAUTERINE GESTATION WITH ULTRASOUND AGE OF 20 WEEKS 5 DAYS. UNREMARKABLE ANATOMY SURVEY. ULTRASOUND OB CERVICAL LENGTH The cervical length was measured with the transvaginal probe. The cervix is closed. Estimated cervical length is approximately 5.1 cm. There is no evidence of previa. IMPRESSION: UNREMARKABLE CLOSED CERVIX. Impression dictated by: Danni Cash M.D. 07/08/2025 8:12 AM Dictation Location: [place] [address] Electronically authenticated by: [id number] Y Date: 07/08/2025 08:12 Dictated By: Danni Cash M.D. Signed By: 07/08/2515 DD/ 1 TD/TT: Style Advisor:CBC AUTO DIFF Reviewed date:05/12/2025 09:59:48 AM Interpretation: Performing Lab: Notes/Report: [facility] ,White Blood Count6.24.0-11.0 10 3/uLRed Blood Count3.964.20-5.40 10 6/uL Ltvuolfuou26.412.0-16.0 g/tQQuelasggkg96.936.0-48.0 %Mean Corpuscular Tevhih79.1 81.0-99.0 fLMean Corpuscular Yaklddhaze81.826.7-34.0 pgMean Corpuscular HGB Conc 34.729.9-35.2 g/dLRed Cell Distribution Width13.211.0-15.0 %Platelet Jrgkw031 150-450 10 3/uLMean Platelet Hammdm90.29.5-13.5 fLNeutrophils Percent Auto74.6 43.0-75.0 %Lymphocytes Percent Auto18.320.5-60.0 %Monocytes Percent Auto5.71.7- 12.0 %Eosinophils Percent Auto0.80.9-7.0 %Basophils Percent Auto0.30.2-2.0 % Immature Granulocytes Pct Auto0.30.0-0.5 %Neutrophils Absolute Auto4.61.4-6.5 10 3/uLLymphocytes Absolute Auto1.11.2-3.8 10 3/uLMonocytes Absolute Auto0.40.3-0.8 10 3/uLEosinophils Absolute Auto0.10.0-0.7 10 3/uLBasophils Absolute Auto0.00.0- 0.1 10 3/uLImmature Granulocytes Abs Auto0.020.00-0.03 10 3/uLPerforming Lab:see noteML - [facility] LBHBsAg Screen Reviewed date:05/09/2025 12:26:52 PM Interpretation: Performing Lab: Notes/Report: [facility] ,HBsAg ScreenNegativeNegative [address], [place] [id number] Hospice Massage Therapist: Tariq Simpson PhD, Phone: [phone] Performed at: [facility] Performing Lab:see noteLC - [facility] LBHCV Antibody RFX to Quant PCR Reviewed date:05/09/2025 08:35:03 AM Interpretation: Performing Lab: Notes/Report: [facility] ,HCV AbNon ReactiveNon ReactiveInterpretation:Comment. [address], [place] [id number] infection. individual), or other evidence exists to indicate HCV Not infected with HCV unless early or acute infection is Performed at: [facility] Hospice Massage Therapist: Tariq Simpson PhD, Phone: [phone] suspected (which may be delayed in an immunocompromised Performing Lab[facility] LBRapid Plasma Reagin, Quant Reviewed date:05/09/2025 12:26:52 PM Interpretation: Performing Lab: Notes/Report: [facility] ,Rapid Plasma Reagin, QuantNon ReactiveNonRea<1:1 titer RPR and Confirmatory Treponema pallidum Antibodies [address] [place] [phone] treponema-specific assay should be utilized, such as treated for syphilis infection. To screen for syphilis Performed at: [facility] Please Note: This test does not meet current guidelines for Hospice Massage Therapist: Tariq Simpson PhD, Phone: [phone] infection, a reflex cascade that includes both RPR and a Rapid Plasma Reagin (RPR) Test With Reflex to Quantitative intended for following treatment response in patients being (234236). Treponema pallidum (Syphilis) Screening [place] (509045) or screening and diagnosis of syphilis. This test is Performing Lab:[facility] LBRUBELLA AB IGG Reviewed date:05/09/2025 08:35:03 AM Interpretation: Performing Lab: Notes/Report: [facility] ,Rubella Antibodies, IgG1.37Immune >0.99 index Immune >0.99 Hospice Massage Therapist: Tariq Simpson PhD, Phone: [phone] Equivocal 0.90 - 0.[address] [place] [phone] Non-immune <0.90 Performed at: [facility] Performing Lab[facility] LBGLYCOHEMOGLOBIN A1C Reviewed date:05/09/2025 08:35:03 AM Interpretation: Performing Lab: Notes/Report: [facility] ,Glycohemoglobin A1C4.74.5-6.2 % > 7.0 ADA RECOMMENDED LIMIT 4.0 - 6.0 ACTION SUGGESTED ADA THERAPEUTIC TARGET < 7.0 Estimated Average Idguqkp53Fyewereumr Lab:see note - [facility] LB CBC AUTO DIFF Reviewed date:05/09/2025 08:35:03 AM Interpretation: Performing Lab: Notes/Report: [facility] ,White Blood Count8.44.0-11.0 10 3/uLRed Blood Count4.044.20-5.40 10 6/uL Xnkwlwbkmg35.612.0-16.0 g/yLCcbcubicjl68.536.0-48.0 %Mean Corpuscular Zfflny70.9 81.0-99.0 fLMean Corpuscular Exxsjtfebz13.726.7-34.0 pgMean Corpuscular HGB Conc 34.629.9-35.2 g/dLRed Cell Distribution Width13.011.0-15.0 %Platelet Iakmc712 150-450 10 3/uLMean Platelet Hrrmgx50.59.5-13.5 fLNeutrophils Percent Auto76.3 43.0-75.0 %Lymphocytes Percent Auto17.020.5-60.0 %Monocytes Percent Auto5.51.7- 12.0 %Eosinophils Percent Auto0.70.9-7.0 %Basophils Percent Auto0.40.2-2.0 % Immature Granulocytes Pct Auto0.10.0-0.5 %Neutrophils Absolute Auto6.41.4-6.5 10 3/uLLymphocytes Absolute Auto1.41.2-3.8 10 3/uLMonocytes Absolute Auto0.50.3-0.8 10 3/uLEosinophils Absolute Auto0.10.0-0.7 10 3/uLBasophils Absolute Auto0.00.0- 0.1 10 3/uLImmature Granulocytes Abs Auto0.010.00-0.03 10 3/uLPerforming Lab:see noteML - [facility] LBPREG QUANT HCG Reviewed date:01/24/2025 01:09:47 PM Interpretation: Performing Lab: Notes/Report: [facility] ,HCG Bsywkpwjwbba2637 5-50 0.2-1 WEEK 1,000-50,000 4-5 WEEKS 10,000-100,000 5-6 WEEKS 100-5,000 2-3 WEEKS 15,000-200,000 6-8 WEEKS 50-500 1-2 WEEKS 500-10,000 3-4 WEEKS 10,000-100,000 2-3 MONTHS Performing Lab:see noteML - [facility] LBType and Screen Reviewed date:01/23/2025 11:51:00 AM Interpretation: Performing Lab: Notes/Report: [facility] ,Blood TypeO PositiveAntibody ScreenNEGATIVEPROF CHEM 8 (BAS METB) Reviewed date:01/23/2025 11:55:01 AM Interpretation: Performing Lab: Notes/Report: [facility] ,Ghlslw870034-647 mmol/LPotassium3.63.5-5.1 mmol/LKtpectdr45300-364 mmol/LCarbon Unlkgdj85.621.0-32.0 mmol/LAnion Gap13.2Esqjhwp4524-146 mg/dLBlood Urea Nitrogen 7.07.0-18.0 mg/dLCreatinine0.660.55-1.02 mg/dLEstimated GFR ( Charo>60 >=60 mL/min/1.73m 2Estimated GFR (Non- Judy>60>=60 mL/min/1.73m 2BUN Creatinine Ratio10.5Lisrzwy8.98.5-10.1 mg/dLPerforming Lab:see noteML - [facility] LBPREG QUANT HCG Reviewed date:01/23/2025 11:55:01 AM Interpretation: Performing Lab: Notes/Report: [facility] ,HCG Vdtkpukzrygy36676 100-5,000 2-3 WEEKS 15,000-200,000 6-8 WEEKS 500-10,000 3-4 WEEKS 10,000-100,000 5-6 WEEKS 5-50 0.2-1 WEEK 50-500 1-2 WEEKS 1,000-50,000 4-5 WEEKS 10,000-100,000 2-3 MONTHS Performing Lab:see noteML - [facility] LBURINE MICROSCOPIC ONLY Reviewed date:01/16/2025 11:54:33 AM Interpretation: Performing Lab: Notes/Report: [facility] ,WBC Urine0-2NONE SEEN #/HPFRBC Urine2-50-2 #/HPFBacteria UrineSMALLNONE SEEN #/HPFMucus UrineTRACENONE SEENSquamous Epithelial Cell UrineFEWNONE/RARE #/LPF Crystals Seen?None SeenNone Seen #/HPFCast Seen?NONE SEENNONE SEEN #/LPFUrine Culture IndicatedYES-FRMCPerforming Lab:see noteML - [facility] LBUA (CLEAN or CATCH) AUTOMATION SALES MANAGER or MICRO IF IND. Reviewed date:01/16/2025 11:54:33 AM Interpretation: Performing Lab: Notes/Report: [facility] ,Color UrineLT. YELLOWYELLOWClarity UrineCLEARCLEARSpecific [place] Urine1.020 1.005-1.025pH Urine7.55.0-9.0Protein UrineNEGATIVENEG/TRACE mg/dLGlucose Urine UANEGATIVENEGATIVE mg/dLBilirubin UrineNEGATIVENEGATIVEKetones UrineNEGATIVE NEGATIVE mg/dLBlood UrineLARGENEGATIVENitrite UrineNEGATIVENEGATIVEUrobilinogen Urine0.20.2-1.0 EU/dLLeukocyte Esterase UrineNEGATIVENEGATIVEUrine Microscopic IndicatedYESPerforming Lab:see noteML - [facility] LBPREG QUANT HCG Reviewed date:01/16/2025 11:54:33 AM Interpretation: Performing Lab: Notes/Report: [facility] ,HCG Mmgueqduhiap41468 500-10,000 3-4 WEEKS 1,000-50,000 4-5 WEEKS 15,000-200,000 6-8 WEEKS 10,000-100,000 5-6 WEEKS 5-50 0.2-1 WEEK 50-500 1-2 WEEKS 100-5,000 2-3 WEEKS 10,000-100,000 2-3 MONTHS Performing Lab:see noteML - [facility] LBCBC AUTO DIFF Reviewed date:01/16/2025 11:54:33 AM Interpretation: Performing Lab: Notes/Report: [facility] ,White Blood Count6.44.0-11.0 10 3/uLRed Blood Count4.144.20-5.40 10 6/uL Iyyilruzla39.612.0-16.0 g/mBHyibpyghzj80.236.0-48.0 %Mean Corpuscular Ncicxj65.4 81.0-99.0 fLMean Corpuscular Vtvobtpvxk27.426.7-34.0 pgMean Corpuscular HGB Conc 34.829.9-35.2 g/dLRed Cell Distribution Width13.211.0-15.0 %Platelet Imlfq977 150-450 10 3/uLMean Platelet Lpbspn38.39.5-13.5 fLNeutrophils Percent Auto68.7 43.0-75.0 %Lymphocytes Percent Auto23.120.5-60.0 %Monocytes Percent Auto6.61.7- 12.0 %Eosinophils Percent Auto1.10.9-7.0 %Basophils Percent Auto0.30.2-2.0 % Immature Granulocytes Pct Auto0.20.0-0.5 %Neutrophils Absolute Auto4.41.4-6.5 10 3/uLLymphocytes Absolute Auto1.51.2-3.8 10 3/uLMonocytes Absolute Auto0.40.3-0.8 10 3/uLEosinophils Absolute Auto0.10.0-0.7 10 3/uLBasophils Absolute Auto0.00.0- 0.1 10 3/uLImmature Granulocytes Abs Auto0.010.00-0.03 10 3/uLPerforming Lab:see noteML - [facility] LBECG 12 lead Reviewed date:11/15/2024 08:35:40 AM Interpretation: Performing Lab: Notes/Report: Source Facility: [place] [address] [place] [address] Electrocardiograph Report Signed Patient: EVA GRANADOS MR#: [id number] : 2000 Acct:[id number] Age/Sex: 24 / F ADM Date: 11/14/24 Loc: ER Attending Dr: Ordering Physician: Sienna Liang Date of Service: 11/14/24 Procedure(s): ECG 12 lead Accession Number(s): [id number] cc: [facility] Test Date: 2024-11-14 Pat Name: EVA GRANADOS Department: Room: - 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 Signed By: 11/15/24 0529 DD/ 2305 TD/TT: Style Advisor:HCG Qualitative Urine Reviewed date:11/15/2024 08:35:40 AM Interpretation: Performing Lab: Notes/Report: [facility] ,HCG Qualitative Urine*NEGATIVENEGATIVEPerforming Lab:see noteML - [facility] LBEthanol Reviewed date:11/15/2024 08:35:40 AM Interpretation: Performing Lab: Notes/Report: [facility] ,Ethanol<3NOTE: 80 mg/dl is the legal limit for a blood alcohol levelPerforming Lab:see note - [facility] LBSalicylate Reviewed date:11/15/2024 08:35:40 AM Interpretation: Performing Lab: Notes/Report: [facility] ,Salicylate<2.8<=19.9 mg/dLPerforming Lab:see note - [facility] LB UA RANDOM W or MICROSCOPIC Reviewed date:11/15/2024 08:35:40 AM Interpretation: Performing Lab: Notes/Report: [facility] ,Color UrineYELLOWYELLOWClarity UrineCLEARCLEARSpecific [place] Urine>=1.030 1.005-1.025pH Urine6.05.0-9.0Protein UrineTRACENEG/TRACE mg/dLGlucose Urine UA NEGATIVENEGATIVE mg/dLBilirubin UrineNEGATIVENEGATIVEKetones Vznek62ZLIEDFOV mg/dLBlood UrineNEGATIVENEGATIVENitrite UrineNEGATIVENEGATIVEUrobilinogen Urine 1.00.2-1.0 EU/dLLeukocyte Esterase UrineNEGATIVENEGATIVEWBC Urine0-2NONE SEEN #/HPFRBC Urine0-20-2 #/HPFBacteria UrineTRACENONE SEEN #/HPFMucus UrineMODERATE NONE SEENSquamous Epithelial Cell UrineMODERATENONE/RARE #/LPFCrystals Seen?None SeenNone Seen #/HPFCast Seen?NONE SEENNONE SEEN #/LPFPerforming Lab:see note - [facility] LBPROF 14(COMP METB) Reviewed date:11/15/2024 08:35:40 AM Interpretation: Performing Lab: Notes/Report: [facility] ,Ddfjvu935885-805 mmol/LPotassium4.13.5-5.1 mmol/KQqqabshb31854-982 mmol/LCarbon Brecyqb32.021.0-32.0 mmol/LAnion Gap16.3Lzcntvj0399-131 mg/dLBlood Urea Nitrogen 7.07.0-18.0 mg/dLCreatinine0.710.55-1.02 mg/dLEstimated GFR ( Charo>60 >=60 mL/min/1.73m 2Estimated GFR (Non- Judy>60>=60 mL/min/1.73m 2BUN Creatinine Ratio9.7Offteww7.58.5-10.1 mg/dLBilirubin Total1.60.2-1.0 mg/dL Aspartate Amino Lgmyusotkty5682-78 U/LAlanine Ouxmjmzxjnarlaxo0944-19 U/L Alkaline Oslmfywmcfa2885-471 U/LTotal Protein7.76.4-8.2 g/dLAlbumin Level4.33.4- 5.0 g/dLGlobulin3.4Albumin Globulin Ratio1.3Performing Lab:see noteML - [facility] LBDRUG SCREEN RAPID (URINE) Reviewed date:11/15/2024 08:35:40 AM Interpretation: Performing Lab: Notes/Report: [facility] ,Cannabinoid Screen UrinePOSITIVENEGATIVEPhencyclidine Screen UrineNEGATIVE NEGATIVECocaine Screen UrineNEGATIVENEGATIVEMethamphetamines Screen Urine NEGATIVENEGATIVEOpiate Screen UrineNEGATIVENEGATIVEAmphetamine Screen Urine NEGATIVENEGATIVEBenzodiazepines Screen UrineNEGATIVENEGATIVETricyclic Antidepressant UrineNEGATIVENEGATIVEMethadone Screen UrineNEGATIVENEGATIVE Barbiturates Screen UrineNEGATIVENEGATIVEOxycodone Screen UrineNEGATIVENEGATIVE Buprenorphine Screen UrineNEGATIVENEGATIVE AMP (Amphetamine): 500 ng/mL PCP (Phencyclidine): 25 ng/mL BZO (Benzodiazepines): 150 ng/mL JUDSON (Cocaine): 150 ng/mL

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
--- OUTSIDE RECORDS SUMMARY | 2025-08-25 10:37 | XMS_ITS | Clinical Summary ---
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 Role Phone Unavailable Primary Care Provider Unavailabl e Allergies Active AllergyReactionsCriticalityNoted PiedUncnczmsYpcte76/10/2016 Medications MedicationSigDispense QuantityRefillsLast FilledStart DateEnd DateStatus Vit-Fe Fumarate-FA ( Vitamins) 28-0.8 MG tablet Indications:Positive urine test ([facility])Take 1 tablet by mouth Daily 30 tablet 1108//[id number]/ctive acetaminophen-codeine (Tylenol w/ Codeine #3) 300-30 MG tablet Take 1 tablet by mouth every 4 (four) hours if needed for moderate pain Discontinued Active Problems ProblemNoted DateDiagnosed DateH/O: HTN (hypertension)08/25/2025HSV infection 08/25/2025Pregnancy ([facility])08/25/2025Estimated Date of Delivery RwawuyctRnp63/15/2026ased on Ultrasound, FHR-154 Encounters DateTypeDepartmentCare SpzaBvcquopxeqv21/24/2025 9:20 AM ESTRoutine [facility] [place] [address] [place] [address] Aliya Ochoa PA Third trimester ([facility]); 28 weeks gestation of ([facility]); , unspecified gestational age ([facility]); HSV infection; H/O: HTN (hypertension)08/25/2025amboo flowsheet [facility] [place] [address] [place] [address] Aliya Ochoa PA 08/04/2025 3:10 PM ESTRoutine [facility] [place] [facility] [address] [address] Robi Robertson, DO Second trimester ([facility]); 25 weeks gestation of ([facility])08/04/2025amboo flowsheet [facility] [place] [facility] [address] [address] Robi Robertson, DO 07/22/2025Telephone [facility] [place] [facility] [address] [address] Ariella Wells LPN 07/21/2025bstract [facility] [place] [facility] [address] [address] Leida Correa MA 5Abstract [facility] [place] [facility] [address] [address] Leida Correa NE 5Clinisync Result Encounter NOMS External Department Unsolicited Lexi Alcaraz NP 07/08/2025linisync Result Encounter NOMS External Department Unsolicited Lexi Alcaraz, LEE 07/07/2025 2:00 PM EDTRoutine [facility] [place] [facility] [address] [address] Lexi Alcaraz, LEE 21 weeks gestation of ([facility]); Second trimester ([facility]); Diabetes mellitus lthydxtto92/06/2025Clinisync Result Encounter [facility]OM[facility] External Department Unsolicited Robi Robertson, DO 07/07/2025amboo flowsheet [facility] [place] [facility] [address] [address] Lexi Alcaraz, LEE 06/26/2025Patient Outreach [facility] [address] [place] [phone] SullivanAliya, ANTHONY 06/17/2025Orders Only [facility] [place] [address] Kimmie Pitts LPN 06/12/2025Results Follow-Up [facility] [place] [address] [place] [address] Ángela Truong, ANTHONY RECURRENT VAGINITIS (HTRX)06/11/2025Telephone [facility] [place] [address] Ángela Truong LPN 06/09/2025 10:40 AM EDTRoutine [facility] [place] [address] Lexi Alcaraz NP 17 weeks gestation of ([facility]); Second trimester ([facility]); Screening, , for anatomic survey ([facility]); Exposure to STD; Vaginal discharge; Well woman exam with routine gynecological exam06/09/2025linisync Result Encounter NOMS External Department Unsolicited Lexi Alcaraz NP 06/09/2025External Result Encounter [facility]OMS External Department Unsolicited Lexi Alcaraz NP 06/09/2025amboo flowsheet [facility] [place] [address] Lexi Alcaraz NP from Last 3 Months Social History Tobacco UseTypesPacks/DayYears UsedDateSmoking Tobacco: Never Assessed Estimated Date of SmjantyjTrmevuczNtl34/15/2026Based on Ultrasound, FHR-154Sex and Gender InformationValueDate RecordedSex Assigned at BirthNot on fileLegal JlyKudzqk71/10/2025 9:11 AM EDTGender IdentityNot on fileSexual OrientationNot on file Last Filed Vital Signs Vital SignReadingTime TakenCommentsBlood Erhkwkvs403/68/ 9:42 AM EST Pulse--Temperature--Respiratory Rate--Oxygen Saturation--Inhaled Oxygen Concentration--Mgotgr53.4 kg (186 lb)08/25/2025 9:42 AM ESTHeight--Body Mass Index-- Plan of Treatment DateTypeDepartmentCare Team (Latest Contact Info)Boblwdbeank13/08/2025 1:30 PM ESTRoutine [facility] [place] [facility] [address] [address] Robi Robertson, DO [address] [place] [address] Procedures Procedure NamePriorityDate/TimeAssociated DiagnosisCommentsPOCT URINALYSIS IHRYOJTYWrdjtcp72/24/2025 9:43 AM EST Third trimester ([facility]) OB CERVICAL OGLDTP2207/08/2025 8:12 AM EDT OB BENQVKN5907/08/2025 8:12 AM EDT [facility] DRUG SCREEN RAPID (URINE)Yhtwtjq1907/07/2025 1:28 PM EDT POCT URINALYSIS ZYDBXBJLNclaskw40/06/2025 1:23 PM EDT 21 weeks gestation of ([facility]) Second trimester ([facility]) URINARY TRACT INFECTION (HTRX)Sqtpxsv7107/07/2025 1:22 PM EDT RECURRENT VAGINITIS (HTRX)Djzuibl6906/09/2025 11:46 AM EDT POCT URINALYSIS OTINLQSVMrtxfxf75/08/2025 11:04 AM EDT 17 weeks gestation of ([facility]) Second trimester ([facility]) IGP,APTIMA HPV,AGE BAUQIujizfp00/08/2025 10:49 AM EDT PAP FGIMWAjzqnqd24/08/2025 12:00 AM EDTfrom Last 3 Months Results * (ABNORMAL) POCT urinalysis dipstick manually resulted (08/25/2025 9:43 AM EST) Only the most recent of3 resultswithin the time period is included. ComponentValueRef RangeTest MethodAnalysis TimePerformed AtPathologist Signature Color, UAAmberClarity, UAClearGlucose, UANegativeNegative - 1999(110) ++++ mg/dL Bilirubin, UANegativeNegative - 4(70) +++ mg/dLKetones, UANegativeNegative - 160(16) ++++ mg/dLSpec Grav, UA1.0201 - 1.03Blood, UANegativeNegative - 50 Obey/mcLpH, UA6.05 - 9Protein, UANegativeNegative - 1999(20) ++++ mg/dL Urobilinogen, UA1.00.2 - 12 mg/dLLeukocytes, UA1+Negative - 500+++ Hai/mcL Nitrite, UANegativeNegative - PositiveSpecimen (Source)Anatomical Location / LateralityCollection Method / VolumeCollection TimeReceived RjofZhlpw92/24/2025 9:43 AM EST Narrative Authorizing ProviderResult TypeResult StatusAmy Osteopathic Hospital of Rhode IslandOINT OF CARE TEST ENTER/EDIT ORDERABLESFinal Result * US OB CERVICAL LENGTH (07/08/2025 8:12 AM EDT)Anatomical RegionLaterality ModalityOtherSpecimen (Source)Anatomical Location / LateralityCollection Method / VolumeCollection TimeReceived Time07/08/2025 8:12 AM EDT Narrative 07/08/2025 8:15 AM EDT [facility] ?[address] ? [place] [address] ? Ultrasound Report ? Signed ? Patient: AD,EVA Gallo ?MR#: [id number] ?? : 2000 ?Acct:[id number] ?? Age/Sex: 24 / F ?ADM Date: 07/07/25 ?? Loc: US ? Attending Dr: Lexi Alcaraz ? Ordering Physician: Lexi Alcaraz ?? Date of Service: 07/07/25 ?? Procedure(s): US OB cervical length ?? Accession Number(s): [id number] ? cc: SANTINO CUEVA ; Lexi Alcaraz ? [facility] ? [address] ? [place] [address] ? Patient Name: ?? EVA GRANADOS ? MRN: [facility]:[id number] ? date: 2000 ?Sex: F ?? Assigned Patient Location: US ?? Current Patient Location: ? Accession/Order Number: [id number] ?? Exam Date: 07/07/2025 ??13:57 ?Report Date: 07/08/2025 ??08:12 ? At the request of: ?? LEXI ??KIERAN ? Procedure: ??US OB cervical length ? CLINICAL DATA: Anatomy survey ? COMPARISON: 05/12/2025 ? ULTRASOUND OB ANATOMY ? There is a single live intrauterine gestation in breech presentation. ??There ?? is cardiac and somatic activity with heart rate of 146 bpm. ??The ?? amniotic fluid volume is subjectively normal. ??The placenta is anterior and ?? fundal and unremarkable in appearance and position. ??The neural axis and all 4 ?? extremities were surveyed by the record center coordinator and no abnormalities were ?? detected. ??The stomach, bladder, kidneys, four-chamber heart with right ?? and left ventricular outflow tracts, diaphragm, facial features and male ?? gender are visualized. ??An echogenic focus is visualized within the left ?? ventricle. ??This can be a normal variant. ?? The following measurements were obtained: ?? Biparietal diameter ? 4.9 cm ?? 20 weeks 5 days ? 33% ?? Head circumference ? 19.0 cm ?? 21 weeks 2 days ? 44% ?? Abdominal circumference ??16.2 cm ?? 21 weeks 2 days ? 47% ?? Femur length ?3.1 cm ?? 19 weeks 3 days ? 4% ?? The composite ultrasound age based these measurements is 20 weeks 5 days +/- 1 ?? week 3 days. ??The estimated date of delivery is 11/19/2025. ??Estimated ?? weight is 13 ounces +/- 2 ounces (17%) ? US/US OB cervical length ?? IMPRESSION: ? SINGLE LIVE INTRAUTERINE GESTATION WITH ULTRASOUND AGE OF 20 WEEKS 5 DAYS. ? UNREMARKABLE ANATOMY SURVEY. ? ULTRASOUND OB CERVICAL LENGTH ? The cervical length was measured with the transvaginal probe. ??The cervix is ?? closed. ??Estimated cervical length is approximately 5.1 cm. ??There is no ?? evidence of previa. ? IMPRESSION: ? UNREMARKABLE CLOSED CERVIX. ? Impression dictated by: Danni Cash M.D. ??07/08/2025 8:12 AM ? Dictation Location: [place] [address] ? Electronically authenticated by: [id number] ??Y ?? Date: 07/08/2025 ??08:12 ? Dictated By: ?Danni Cash M.D. ? Signed By: ?07/08/25814 ? DD/ 0812 ? TD/TT: ? Carrier Loader: Procedure Note Radiology, Radiologist, MD - 07/08/[address] [address] Ultrasound Report Signed Patient: EVA GRANADOS SMR#: [id number] : 2000Acct:[id number] Age/Sex: 24 / FADM Date: 07/07/25 Loc: US Attending Dr: Lexi Alcaraz Ordering Physician: Lexi Alcaraz Date of Service: 07/07/25 Procedure(s): US OB cervical length Accession Number(s): [id number] cc: SANTINO CUEVA ; Lexi Alcaraz The [address] [address] Patient Name: EVA GRANADOS MRN: [facility]:[id number] date: 2000 Sex: F Assigned Patient Location: US Current Patient Location: Accession/Order Number: [id number] Exam Date: 07/07/2025 13:57 Report Date: 07/08/2025 08:12 At the request of: LEXI ALCARAZ Procedure: US OB cervical length CLINICAL DATA: Anatomy survey COMPARISON: 05/12/2025 ULTRASOUND OB ANATOMY There is a single live intrauterine gestation in breech presentation.There is cardiac and somatic activity with heart rate of 146 bpm. The amniotic fluid volume is subjectively normal. The placenta is anteriorand fundal and unremarkable in appearance and position. The neural axis andall 4 extremities were surveyed by the record center coordinator and no abnormalities were detected. The stomach, bladder, kidneys, four-chamber heart withright and left ventricular outflow tracts, diaphragm, facial [...] based these measurements is 20 weeks 5 days+/- 1 week 3 days. The estimated date of delivery is 11/19/2025. Estimatedfetal weight is 13 ounces +/- 2 ounces (17%) US/US OB cervical length IMPRESSION: SINGLE LIVE INTRAUTERINE GESTATION WITH ULTRASOUND AGE OF 20 WEEKS 5 DAYS. UNREMARKABLE ANATOMY SURVEY. ULTRASOUND OB CERVICAL LENGTH The cervical length was measured with the transvaginal probe. The cervixis closed. Estimated cervical length is approximately 5.1 cm. There is no evidence of previa. IMPRESSION: UNREMARKABLE CLOSED CERVIX. Impression dictated by: Danni Cash M.D. 07/08/2025 8:12 AM Dictation Location: [place] [address] Electronically authenticated by: [id number] Y Date: 508:12 Dictated By: Danni Cash M.D. Signed By:07/08/25814 DD/ 1 TD/TT: Carrier Loader: Authorizing ProviderResult TypeResult StatusLexi Alcaraz NPCLINISYNC IMAGING Final Result * US OB ANATOMY (07/08/2025 8:12 AM EDT)Anatomical RegionLateralityModalityOther Specimen (Source)Anatomical Location / LateralityCollection Method / Volume Collection TimeReceived Time07/08/2025 8:12 AM EDT Narrative 07/08/2025 8:15 AM EDT [facility] ?[address] ? [place] [address] ? Ultrasound Report ? Signed ? Patient: AD,FELICITY S ?MR#: [id number] ?? : 2000 ?Acct:[id number] ?? Age/Sex: 24 / F ?ADM Date: 07/07/25 ?? Loc: US ? Attending Dr: Lexi Alcaraz ? Ordering Physician: Lexi Alcaraz ?? Date of Service: 07/07/25 ?? Procedure(s): US OB anatomy ?? Accession Number(s): [id number] ? cc: SANTINO CUEVA ; Lexi Alcaraz ? [facility] ? [address] ? [place] [address] ? Patient Name: ?? EVA GRANADOS ? MRN: [facility]:[id number] ? date: 2000 ?Sex: F ?? Assigned Patient Location: US ?? Current Patient Location: ? Accession/Order Number: [id number] ?? Exam Date: 07/07/2025 ??13:57 ?Report Date: 07/08/2025 ??08:12 ? At the request of: ?? LEXI ??KIERAN ? Procedure: ??US OB cervical length ? CLINICAL DATA: Anatomy survey ? COMPARISON: 05/12/2025 ? ULTRASOUND OB ANATOMY ? There is a single live intrauterine gestation in breech presentation. ??There ?? is cardiac and somatic activity with heart rate of 146 bpm. ??The ?? amniotic fluid volume is subjectively normal. ??The placenta is anterior and ?? fundal and unremarkable in appearance and position. ??The neural axis and all 4 ?? extremities were surveyed by the record center coordinator and no abnormalities were ?? detected. ??The stomach, bladder, kidneys, four-chamber heart with right ?? and left ventricular outflow tracts, diaphragm, facial features and male ?? gender are visualized. ??An echogenic focus is visualized within the left ?? ventricle. ??This can be a normal variant. ?? The following measurements were obtained: ?? Biparietal diameter ? 4.9 cm ?? 20 weeks 5 days ? 33% ?? Head circumference ? 19.0 cm ?? 21 weeks 2 days ? 44% ?? Abdominal circumference ??16.2 cm ?? 21 weeks 2 days ? 47% ?? Femur length ?3.1 cm ?? 19 weeks 3 days ? 4% ?? The composite ultrasound age based these measurements is 20 weeks 5 days +/- 1 ?? week 3 days. ??The estimated date of delivery is 11/19/2025. ??Estimated ?? weight is 13 ounces +/- 2 ounces (17%) ? / OB anatomy ?? IMPRESSION: ? SINGLE LIVE INTRAUTERINE GESTATION WITH ULTRASOUND AGE OF 20 WEEKS 5 DAYS. ? UNREMARKABLE ANATOMY SURVEY. ? ULTRASOUND OB CERVICAL LENGTH ? The cervical length was measured with the transvaginal probe. ??The cervix is ?? closed. ??Estimated cervical length is approximately 5.1 cm. ??There is no ?? evidence of previa. ? IMPRESSION: ? UNREMARKABLE CLOSED CERVIX. ? Impression dictated by: Danni Cash M.D. ??07/08/2025 8:12 AM ? Dictation Location: [place] [address] ? Electronically authenticated by: [id number] ??Y ?? Date: 07/08/2025 ??08:12 ? Dictated By: ?Danni Cash M.D. ? Signed By: ?07/08/25 0815 ? DD/ 0812 ? TD/TT: ? Carrier Loader: Procedure Note Radiology, Radiologist, MD - 07/08/2025 [place] [address] Ultrasound Report Signed Patient: EVA GRANADOS [facility]#: [id number] : 2000Acct:[id number] Age/Sex: 24 / FADM Date: 07/07/25 Loc: US Attending Dr: Lexi Alcaraz Ordering Physician: Lexi Alcaraz Date of Service: 07/07/25 Procedure(s): US OB anatomy Accession Number(s): [id number] cc: SANTINO CUEVA ; Lexi Alcaraz The [place] [id number] Patient Name: EVA GRANADOS MRN: [id number] date: 2000 Sex: F Assigned Patient Location: Current Patient Location: Accession/Order Number: [id number] Exam Date: 07/07/2025 13:57 Report Date: 07/08/2025 08:12 At the request of: LEXI ALCARAZ Procedure: US OB cervical length CLINICAL DATA: Anatomy survey COMPARISON: 05/12/2025 ULTRASOUND OB ANATOMY There is a single live intrauterine gestation in breech presentation.There is cardiac and somatic activity with heart rate of 146 bpm. The amniotic fluid volume is subjectively normal. The placenta is anteriorand fundal and unremarkable in appearance and position. The neural axis andall 4 extremities were surveyed by the record center coordinator and no abnormalities were detected. The stomach, bladder, kidneys, four-chamber heart withright and left ventricular outflow tracts, diaphragm, facial [...] based these measurements is 20 weeks 5 days+/- 1 week 3 days. The estimated date of delivery is 11/19/2025. Estimatedfetal weight is 13 ounces +/- 2 ounces (17%) US/US OB anatomy IMPRESSION: SINGLE LIVE INTRAUTERINE GESTATION WITH ULTRASOUND AGE OF 20 WEEKS 5 DAYS. UNREMARKABLE ANATOMY SURVEY. ULTRASOUND OB CERVICAL LENGTH The cervical length was measured with the transvaginal probe. The cervixis closed. Estimated cervical length is approximately 5.1 cm. There is no evidence of previa. IMPRESSION: UNREMARKABLE CLOSED CERVIX. Impression dictated by: Danni Cash M.D. 07/08/2025 8:12 AM Dictation Location: [place] [address] Electronically authenticated by: [id number] Y Date: 508:12 Dictated By: Danni Cash M.D. Signed By:07/08/25 0815 DD/ 0812 TD/TT: Carrier Loader: Authorizing ProviderResult TypeResult StatusLexi Alcaraz NPCLINISYNC IMAGING Final Result * [facility] DRUG SCREEN RAPID (URINE) (07/07/2025 1:28 PM EDT)ComponentValueRef Range Test MethodAnalysis TimePerformed AtPathologist SignatureCANNABINOID SCREEN URINENEGATIVENEGATIVETBHPHENCYCLIDINE SCREEN URINENEGATIVENEGATIVETBHCOCAINE SCREEN URINENEGATIVENEGATIVETBHMETHAMPHETAMINES SCREEN URINENEGATIVENEGATIVE TBHOPIATE SCREEN URINENEGATIVENEGATIVETBHAMPHETAMINE SCREEN URINENEGATIVE NEGATIVETBHBENZODIAZEPINES SCREEN URINENEGATIVENEGATIVETBHTRICYCLIC ANTIDEPRESSANT URINENEGATIVENEGATIVETBHMETHADONE SCREEN URINENEGATIVENEGATIVE TBHBARBITURATES SCREEN URINENEGATIVENEGATIVETBHOXYCODONE SCREEN URINENEGATIVE NEGATIVETBHBUPRENORPHINE SCREEN URINENEGATIVENEGATIVETBHComment: DRUG CLASS TEST SYSTEM CUT-OFF CONCENTRATIONS ARE FOLLOWS: AMP (Amphetamine): 500 ng/mL BAR (Barbiturates): 200 ng/mL BZO (Benzodiazepines): 150 ng/mL BUP (Buprenorphine): 10 ng/mL JUDSON (Cocaine): 150 ng/mL mAMP (Methamphetamine): 500 ng/mL MTD (Methadone): 200 ng/mL OPI (Opiates): 100 ng/mL OXY (Oxycodone): 100 ng/mL PCP (Phencyclidine): 25 ng/mL THC (Cannabinoids): 50 ng/mL TCA (Trycyclic Antidepressants): 300 ng/mL Specimen (Source)Anatomical Location / LateralityCollection Method / Volume Collection TimeReceived Time07/07/2025 1:28 PM EDT1 7:57 PM EDT Narrative CLINISYNC - 07/07/2025 8:13 PM EDT Authorizing ProviderResult TypeResult StatusRobi Robertson DOCLINISYNCFinal Result Performing OrganizationAddressCity/State/ZIP CodePhone Number CLINISYNC TB * URINARY TRACT INFECTION (HTRX) (07/07/2025 1:22 PM EDT)ComponentValueRef Range Test MethodAnalysis TimePerformed AtPathologist SignatureOLGA CORTESII019.961 - 24.689 ppm07/08/2025 7:45 AM EDTHealthTrackRx at LabPort ACINETOBACTER BAUMANIINot Zrtjbqkr00.961 - 24.689 ppm07/08/2025 7:45 AM EDT [facility] LabPortCITROBACTER EFZRLVJN451.000 - 32.015 ppm07/08/2025 7:45 AM EDTHealthTrackRx at LabPortCITROBACTER FREUNDIINot Lyvlzbyd41.000 - 32.015 ppm07/08/2025 7:45 AM EDTHealthTrackRx at LabPortENTEROBACTER AEROGENES, ATWWNBL400.000 - 32.290 ppm07/08/2025 7:45 AM EDTHealthTrackRx at LabPortENTEROBACTER AEROGENES, CLOACAENot Fvsecves58.000 - 32.290 ppm 07/08/2025 7:45 AM EDTHealthTrackRx at LabPortENTEROCOCCUS FAECALIS, FAECIUM0 26.000 - 33.043 ppm07/08/2025 7:45 AM EDTHealthTrackRx at LabPortENTEROCOCCUS FAECALIS, FAECIUMNot Ljdfmilg07.000 - 33.043 ppm07/08/2025 7:45 AM EDT [facility] at LabPortESCHERICHIA GSXK467.000 - 28.500 ppm07/08/2025 7:45 AM EDTHealthTrackRx at LabPortESCHERICHIA COLINot Ncsixfjv02.000 - 28.500 ppm 07/08/2025 7:45 AM EDTHealthTrackRx at LabPortKLEBSIELLA PNEUMONIAE, OXYTOCA0 23.000 - 31.865 ppm07/08/2025 7:45 AM EDTHealthTrackRx at LabPortKLEBSIELLA PNEUMONIAE, OXYTOCANot Sabsspmy22.000 - 31.865 ppm07/08/2025 7:45 AM EDT [facility] at LabPortMORGANELLA INUPQAHQ915.961 - 24.689 ppm07/08/2025 7:45 AM EDTHealthTrackRx at LabPortMORGANELLA MORGANIINot Leaedjki31.961 - 24.689 ppm07/08/2025 7:45 AM EDTHealthTrackRx at LabPortPROTEUS MIRABILIS, VULGARIS0 23.000 - 28.500 ppm1004/2025 7:45 AM EDTHealthTrackRx at LabPortPROTEUS MIRABILIS, VULGARISNot Pjwekxaf36.000 - 28.500 ppm07/08/2025 7:45 AM EDT [facility] at LabPortPSEUDOMONAS JADUZQSRBS231.000 - 31.801 ppm07/08/2025 7:45 AM EDTHealthTrackRx at LabPortPSEUDOMONAS AERUGINOSANot Qtdusohq67.000 - 31.801 ppm07/08/2025 7:45 AM EDTHealthTrackRx at LabPortSTAPHYLOCOCCUS AUREUS0 26.000 - 31.595 ppm07/08/2025 7:45 AM EDTHealthTrackRx at [facility]Port STAPHYLOCOCCUS AUREUSNot Mozbtqwo07.000 - 31.595 ppm07/08/2025 7:45 AM EDT [facility] at LabPortSTREPTOCOCCUS AGALACTIAE (GROUP B STREP)026.000 - 32.435 ppm07/08/2025 7:45 AM EDTHealthTrackRx at LabPortSTREPTOCOCCUS AGALACTIAE (GROUP B STREP)Not Zmxuciie86.000 - 32.435 ppm07/08/2025 7:45 AM EDTHealthTrackRx at LabPortCANDIDA ALBICANS, PARAPSILOSIS, EOOIXNDFIX607.000 - 30.347 ppm07/08/2025 7:45 AM EDTHealthTrackRx at LabPortCANDIDA ALBICANS, PARAPSILOSIS, TROPICALISNot Ngcjstoo39.000 - 30.347 ppm07/08/2025 7:45 AM EDT [facility] LabPortCANDIDA FUUEREVG140.000 - 31.618 ppm07/08/2025 7:45 AM EDTHealthTrackRx at LabPortCANDIDA GLABRATANot Cpioeklb03.000 - 31.618 ppm 07/08/2025 7:45 AM EDTHealthTrackRx at LabPortCANDIDA XYLIFH204.000 - 30.873 ppm07/08/2025 7:45 AM EDTHealthTrackRx at LabPortCANDIDA KRUSEINot Detected 23.000 - 30.873 ppm07/08/2025 7:45 AM EDTHealthTrackRx at LabPortSERRATIA WBLQFLAJQI677.000 - 31.581 ppm07/08/2025 7:[address]Health[facility] [address] [facility] SERRATIA MARCESCENSNot Qtusfnkc27.000 - 31.581 ppm07/08/2025 7:45 AM EDT [facility] HospitalSTREPTOCOCCUS PYOGENES (GROUP A STREP)019.961 - 24.689 ppm07/08/2025 7:[address] [facility] HospitalSTREPTOCOCCUS PYOGENES (GROUP A STREP)Not Julyiwmh72.961 - 24.689 ppm07/08/2025 7:[address] [facility] HospitalSTAPHYLOCOCCUS EPIDERMIDIS, HAEMOLYTICUS, LUGDUNENSIS, SAPROPHYTICUS (PHAZA059.961 - 24.689 ppm07/08/2025 7:[address] [facility] STAPHYLOCOCCUS EPIDERMIDIS, HAEMOLYTICUS, LUGDUNENSIS, SAPROPHYTICUS (URINANot Acqhmeno22.961 - 24.689 ppm07/08/2025 7:[address] [facility] STAPHYLOCOCCUS EPIDERMIDIS, HAEMOLYTICUS, LUGDUNENSIS, SAPROPHYTICUS (URINA0 19.961 - 24.689 ppm07/08/2025 7:[address] [facility] STAPHYLOCOCCUS EPIDERMIDIS, HAEMOLYTICUS, LUGDUNENSIS, SAPROPHYTICUS (URINANot Lrrrtjks67.961 - 24.689 ppm07/08/2025 7:[address] [address] [facility] Specimen (Source)Anatomical Location / LateralityCollection Method / Volume Collection TimeReceived ElctIgmmy03/06/2025 1:22 PM EDT1 1:41 AM EDT Narrative Authorizing ProviderResult TypeResult StatusLexi Alcaraz ESE BLOOD ORDERABLESFinal ResultPerforming OrganizationAddressCity/State/ZIP CodePhone Number [facility] [address] [address] * (ABNORMAL) RECURRENT VAGINITIS (HTRX) (06/09/2025 11:46 AM EDT)ComponentValue Ref RangeTest MethodAnalysis TimePerformed AtPathologist SignatureATOPOBIUM VSSNDKK19.974(A)19.961 - 24.689 ppm06/10/2025 6:06 AM EDTHealthTrackRx at LabPortATOPOBIUM VAGINAEDetected(A)19.961 - 24.689 ppm06/10/2025 6:06 AM EDT [facility]Mar[facility] HospitalBVAB 2,3 (BACTERIAL VAGINOSIS ASSOCIATED BACTERIA 2, 3); MOBILUNCUS CNV244.961 - 24.689 ppm06/10/2025 6:[address] [facility] HospitalBVAB 2,3 (BACTERIAL VAGINOSIS ASSOCIATED BACTERIA 2, 3); MOBILUNCUS SPP Not Lavegmme58.961 - 24.689 ppm06/10/2025 6:07 AM EDTHealthTrackRx at [facility]Mar[facility] PABLO ALBICANS, PARAPSILOSIS, ROXZSXXDNL031.000 - 30.347 ppm06/10/2025 6:[address] [facility] HospitalCANDIDA ALBICANS, PARAPSILOSIS, TROPICALISNot Bwebpzku33.000 - 30.347 ppm06/10/2025 6:[address] [facility] PABLO JUIFUTBS463.000 - 31.618 ppm06/10/2025 6:07 AM EDTHealthTrackRx at LabMarion General HospitalCANDIDA GLABRATANot Buhfgzpk23.000 - 31.618 ppm06/10/2025 6:07 AM EDT [facility] JEADOZ919.000 - 30.873 ppm06/10/2025 6:[address] [facility] HospitalCANDIDA KRUSEINot Svwbawzk04.000 - 30.873 ppm 06/10/2025 6:[address] [facility] HospitalCHLAMYDIA EJPCWIPSGII698.000 - 31.586 ppm06/10/2025 6:[address] [facility] HospitalCHLAMYDIA TRACHOMATIS Not Ltizxuik87.000 - 31.586 ppm06/10/2025 6:07 AM EDTHealthTrackRx at LabPort GARDNERELLA FYPDQFLYG37.45(A)19.961 - 24.689 ppm06/10/2025 6:07 AM EDT [facility] HospitalGARDNERELLA VAGINALISDetected(A)19.961 - 24.689 ppm 06/10/2025 6:[address] Francis HospitalMEGASPHAERA (TYPES 1, 2)019.961 - 24.689 ppm06/10/2025 6:[address] [facility] HospitalMEGASPHAERA (TYPES 1, 2)Not Anrfyzol06.961 - 24.689 ppm06/10/2025 6:[address] [facility] HospitalNEISSERIA IDAGVVRKXGX991.000 - 32.587 ppm06/10/2025 6:07 AM EDT [facility] HospitalNEISSERIA GONORRHOEAENot Oaylmbub42.000 - 32.587 ppm 06/10/2025 6:[address] Francis HospitalTRICHOMONAS NGKQJRKDH574.000 - 31.995 ppm06/10/2025 6:[address] Francis HospitalTRICHOMONAS VAGINALIS Not Cswfqydo96.000 - 31.995 ppm06/10/2025 6:06 [address] MYCOPLASMA OKODRAHUUO228.961 - 24.689 ppm06/10/2025 6:[address] [facility] HospitalMYCOPLASMA GENITALIUMNot Rttaybmh51.961 - 24.689 ppm06/10/2025 6:07 AM EDTHealth[facility]Rx at [place], C; MEFA25.073(A)23.000 - 27.500 ppm 06/10/2025 6:07 AM EDTHealth[facility]Rx at [place], C; MEFADetected(A)23.000 - 27.500 ppm06/10/2025 6:[address] Francis HospitalTET B, TET M24.604(A) 23.000 - 27.500 ppm06/10/2025 6:[address] Francis HospitalTET B, TET M Detected(A)23.000 - 27.500 ppm06/10/2025 6:06 [address] Specimen (Source)Anatomical Location / LateralityCollection Method / Volume Collection TimeReceived PoirPghyax76/08/2025 11:46 AM EDT06/10/2025 1:38 AM EDT Narrative Authorizing ProviderResult TypeResult StatusLexi Alcaraz NPLAB BLOOD ORDERABLESFinal ResultPerforming OrganizationAddressCity/State/ZIP CodePhone Number [facility] [address] [id number] * IGP,APTIMA HPV,AGE GDLN (06/09/2025 10:49 AM EDT)ComponentValueRef RangeTest MethodAnalysis TimePerformed AtPathologist SignatureAGE GDLN ACOG TESTINGNote. TBHComment: ?? TESTS ? RESULT ??FLAG ??UNITS ?REF RANGE ??LAB ?? Clinician Provided Cytology Information ?? Source.............[facility] ?? Other.............. ?? No. of containers..01 ThinPrep Vial Age Algo ACOG Ebony... ??21-29 ? 01 ?FLAG LEGEND: ?L-Low Normal,H-High Normal,LL-Alert Low,HH-Alert High <-Panic Low,>-Panic High,A-Abnormal,AA-Critical Abnormal Performed at: 01 =G ?[facility] ?? [address] [place] ??[address] ?? Naima Shannon MD, IGP, RFX APTIMA HPV ASCUNote.TBHComment: ?? TESTS ? RESULT ??FLAG ??UNITS ?REF RANGE ??LAB DIAGNOSIS: ?02 ?? NEGATIVE FOR INTRAEPITHELIAL LESION OR MALIGNANCY. Specimen adequacy: ?02 ?? Satisfactory for evaluation. ??Endocervical and/or squamous metaplastic ?? cells (endocervical component) are present. Performed by: ? 02 ?? Marianna Mondragon Environmental Health And Safety Leader (ASCP) . ? 02 Note: ? Note ?02 ?? The Pap smear is a screening test designed to aid in the ?? detection of premalignant and malignant conditions of the ?? uterine cervix. ??It is not a diagnostic procedure and ?? should not be used as the sole means of detecting cervical ?? cancer. ??Both false-positive and false-negative reports do ?? occur. Test Methodology: ? Note ?02 ?? This liquid based ThinPrep(R) pap test was screened with ?? the use of an image guided system. . ? 02 ?? The HPV DNA reflex criteria were not met with this specimen ?? result therefore, no HPV testing was performed. ?FLAG LEGEND: ?L-Low Normal,H-High Normal,LL-Alert Low,HH-Alert High <-Panic Low,>-Panic High,A-Abnormal,AA-Critical Abnormal Performed at: 02 WB ?[facility] ?? [address] [place], [place] ??[address] ?? Naima Shannon MD, Performed at: ??=G - [facility] [address] [place] ??[id number] Stretcher Drier Operator: Naima Shannon MD, Phone: ??[phone] Performed at: ?? - [facility] [address] ??[id number] Stretcher Drier Operator: Naima Shannon MD, Phone: ??[phone] Specimen (Source)Anatomical Location / LateralityCollection Method / Volume Collection TimeReceived Time06/09/2025 10:49 AM EDT06/09/2025 2:36 PM EDT Narrative [facility] - 06/11/2025 4:18 PM EDT [facility] Authorizing ProviderResult TypeResult StatusKrld Kieran NPLAB BLOOD ORDERABLESFinal ResultPerforming OrganizationAddressCity/State/ZIP CodePhone Number [facility] * Pap Smear (06/09/2025 12:00 AM EDT)Specimen (Source)Anatomical Location / LateralityCollection Method / VolumeCollection TimeReceived TimeSwabCervical swab / Unknown Narrative Authorizing ProviderResult TypeResult StatusFazio Nurse [facility] ObLAB CYTOLOGY ORDERABLESFinal ResultPerforming OrganizationAddressCity/State/ZIP CodePhone Number EXTERNAL LAB from Last 3 Months Insurance
--- OUTSIDE RECORDS SUMMARY | 2025-08-25 10:37 | XMS_ITS | Encounter Summary ---
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 Social History Tobacco UseTypesPacks/DayYears UsedDateSmoking Tobacco: Never Assessed Estimated Date of NxnpfdsxFtwucjkxEsj87/15/2026Based on Ultrasound, [id number] and Gender InformationValueDate RecordedSex Assigned at BirthNot on fileLegal AiiGfxglu08/10/2025 9:11 AM EDTGender IdentityNot on fileSexual OrientationNot on filedocumented as of this encounter Plan of Treatment DateTypeDepartmentCare Team (Latest Contact Info)Rnwupxpbhla08/08/2025 1:30 PM ESTRoutine [facility] [address] [place] [address] Robi Robertson DO [address] [place] [address] documented as of this encounter Visit Diagnoses Not on filedocumented in this encounter
--- OUTSIDE RECORDS SUMMARY | 2025-08-25 10:45 | XMS_ITS | CCD ---
Author Organization [facility] Care Team Providers Care Pumping Supervisor Name Role Phone Pcp, None Primary Care [...] Primary Care Unavailable BELLE OCHOA Admitting Unavailable Unavailable Primary Care Provider Unavailvik e NON STAFF Primary Care Provider UnavailOctavio Lion MD Attending Provider [phone] Zoila Manzo DO Attending Provider [phone] Zoila Manzo Attending Unavailable Zoila Manzo Admitting Unavailable Octavio Martinez Attending Unavailab le Octavio Martinez Admitting Unavailab le NON STAFF Primary Care Unavailable TATIANA ALCARAZ Attending Unavailable TATIANA ALCARAZ Attending Unavailable ROBI ROBERTSON Attending Unavailable Allergies Allergy ClassificationReported Allergen(s)Allergy TypeDate of OnsetReaction(s) Facility (16 sources)OtherPropensity to adverse grykmnzug24-98-5750[facility] Medications Current Medications MedicationDrug Class(es)DatesSig (Normalized)Sig (Original)acetaminophen 500 mg oral tablet (7 sources)Start: 43-79-0027tekp 2 tablets by mouth every six hours as needed acetaminophen (TYLENOL) 500 MG tablet Take 2 tablets by mouth every 6 hours as needed. 30 tablet 0 03/24/2021 ActiveStart: 44-42-3295hwvxbrxdxplgc (TYLENOL) tablet 1,000 mgacetaminophen 325 mg / HYDROcodone bitartrate 5 mg oral tablet (2 sources)Opioid AgonistStart: 34-13-3769opew 1 tablet by mouth every six hours as needed for painhydrocodone-acetaminophen (NORCO) 5-325 MG Indications: Pain, dental , Jaw swelling Take 1 tablet by mouth every 6 hours as needed for Pain. 8 tablet 0 08/14/2020 ActiveStart: 08-14-2020 End: 75-70-1290gmdhtymupah-acetaminophen (NORCO) 5-325 MG home pack 1 packet aluminum hydroxide 40 mg/ml / magnesium hydroxide 40 mg/ml oral suspension (1 source)Start: 17-79-2611ojpxlpuk-magnesium hydroxide 200-200 MG/5ML suspension 30 mLbenzocaine 200 mg/ml / menthol 5 mg/ml topical spray (1 source)Standardized Chemical AllergenStart: 14-33-9303vxhrojmcym-menthol (DERMOPLAST) 20-0.5 % topical spraybrompheniramine maleate 0.4 mg/ml / dextromethorphan hydrobromide 2 mg/ml / pseudoephedrine hydrochloride 6 mg/ml oral solution (3 sources)alpha-Adrenergic Agonist, Uncompetitive H-xfcyml-K-aspartate Receptor Antagonist, Sigma-1 AgonistStart: 21-07-6975awwl 10 mL by mouth four times daily as needed for lyoondvjtsinzrdvinsk-xbfoohcfoqpikbm-WA (BROMFED DM) 30-2-10 MG/5ML syrup Indications: URI with cough and congestion Take 10 mLs by mouth 4 times daily as needed for Cough or Congestion. 120 mL 0 02/04/2022 Active diphenhydrAMINE hydrochloride 25 mg oral capsule (1 source)Histamine-1 Receptor AntagonistStart: 10-15-3827xbhpxpwfvrUYSDF (BENADRYL) capsule 25 mgdocusate sodium 100 mg oral capsule (8 sources)Start: 45-82-9686mluq 1 capsule by mouth twice daily as needed for constipationdocusate sodium 100 MG CAPS Take 100 mg by mouth 2 times daily as needed for Constipation. 30 capsule 1 03/24/2021 Activefamotidine 20 mg oral tablet (1 source)Histamine-2 Receptor AntagonistStart: 97-78-8070huwdsludkh (PEPCID) tablet 20 mghydrocortisone 25 mg/ml topical cream (1 source)CorticosteroidStart: 61-32-8512Maazzvntvdabei (Perianal) 2.5 % rectal creamhydrocortisone acetate 25 mg/ml / pramoxine hydrochloride 10 mg/ml rectal cream (1 source)CorticosteroidStart: 24-14-5667Dpjjlzaet-Pramoxine (Perianal) (ANALPRAM-HC) rectal creamibuprofen 800 mg oral tablet (7 sources)Nonsteroidal Anti-inflammatory DrugStart: 59-12-7181zwoc 1 tablet by mouth every eight hours as neededibuprofen (ADVIL,MOTRIN) 800 MG tablet Take 1 tablet by mouth every 8 hours as needed. 30 tablet 1 03/24/2021 Activelanolin 0.5 mg/mg topical ointment (1 source)Start: 80-69-8019Scnxqck Hydrous ointmentmagnesium hydroxide 240 mg/ml oral suspension (1 source)Start: 10-65-9116Ydmqntvva Hydroxide (MOM) suspension (CONC) 10 mL magnesium oxide 400 mg oral tablet (4 sources)Start: 05-08-2025 End: 84-44-7378skgu 1 tablet by mouth once dailymagnesium oxide (Mag-Ox) 400 MG tablet Indications: Nonintractable headache, unspecified chronicitypattern, unspecified headache type Take 1 tablet (400 mg) by mouth Daily 30 tablet 11 05/08/2025 06/09/2025 Activenaproxen 500 mg oral tablet (2 sources)Nonsteroidal Anti-inflammatory DrugStart: 71-18-0008awfq 1 tablet by mouth twice daily as needed for painnaproxen (NAPROSYN) 500 MG tablet Take 1 tablet by mouth 2 times daily as needed for Pain. 15 tablet 0 08/14/2020 Active Start: 08-14-2020 End: 91-99-5948ykchsgiq (NAPROSYN) tablet 500 mg2 ml ondansetron 2 mg/ml injection (9 sources)Serotonin-3 Receptor AntagonistStart: 71-31-4793wozszjtnvyn hcl (ZOFRAN) injection 4 mgStart: 12-21-2020 End: 22-49-0107Cqvsqximgkz (ZOFRAN-ODT) disintegrating tablet 4 mgoxyCODONE hydrochloride 5 mg oral tablet (1 source)Opioid AgonistStart: 70-46-5391nbrIKHPIG (ROXICODONE) immediate release tablet 5-10 mgoxytocin 20 units in 1000mL LR - post (1 source)Start: 68-73-9850axymcaub 20 units in 1000mL LR - post penicillin v potassium 500 mg oral tablet (2 sources)Start: 28-32-1295cdgj 1 tablet by mouth four times dailypenicillin v potassium (VEETID) 500 MG tablet Take 1 tablet by mouth 4 times daily. 39 tablet 0 08/14/2020 ActiveStart: 08-14-2020 End: 29-01-9437wnjacgnqis v potassium (VEETID) tablet 500 mgprenatal multivitamin 27-0.8 MG tablet 1 tablet (1 source)Start: 27-46-5089fognubuk multivitamin 27-0.8 MG tablet 1 tablet Vit-Fe Fumarate-FA ( VITAMIN PLUS LOW IRON) 27-1 MG TABS (14 sources)Start: 50-45-9639rusa 1 tablet by mouth once dailyPrenatal Vit-Fe Fumarate-FA ( VITAMIN PLUS LOW IRON) 27-1 MG TABS Take 1 tablet by mouth daily. 30 tablet 0 11/19/2020 ActivePrenatal Vit-Fe Fumarate-FA ( Vitamins) 28-0.8 MG tablet (16 sources)Start: 05-08-2025 End: 26-64-1292qbba 1 tablet by mouth once dailyPrenatal Vit-Fe Fumarate-FA ( Vitamins) 28-0.8 MG tablet Indications: Positive urine test ([facility]) Take 1 tablet by mouth Daily 30 tablet 11 05/08/2025 05/08/2026 Active simethicone 80 mg chewable tablet (1 source)Start: 27-76-1007zqmgzqgxnet (MYLICON) chewable tablet 80 mgzolpidem tartrate 5 mg oral tablet (1 source)gamma-Aminobutyric Acid-ergic AgonistStart: 62-58-2565polzncxc (AMBIEN) tablet 5 mg Completed/Discontinued Medications MedicationDrug Class(es)DatesSig (Normalized)Sig (Original)acetaminophen 300 mg / codeine phosphate 30 mg oral tablet (16 sources)Opioid AgonistStart: 02-12-2025 End: 65-48-7368dsoo 1 tablet by mouth every four hours as needed for pain acetaminophen-codeine (Tylenol w/ Codeine #3) 300-30 MG tablet Take 1 tablet by mouth every 4 (four) hours if needed for moderate pain 02/12/2025 08/04/2025 Discontinuedcalcium chloride 0.0014 meq/ml / potassium chloride 0.004 meq/ml / sodium chloride 0.103 meq/ml / sodium lactate 0.028 meq/ml injectable solution (3 sources)Start: 03-22-2021 End: 69-01-5608uafbqahv ringers bolus solution 1,000 mL Problems Active Problems Problem ClassificationProblemDateDocumented DateEpisodic/ChronicDisorders of teeth and jaw (1 source)Toothache; Translations: [Pain, dental]EpisodicHeadache; including migraine (1 source)Headache; Translations: [Nonintractable headache, unspecified chronicity pattern, unspecified headache type]93-56-8996FwsvflgsTwhfgmysccxjv and screening for infectious disease (3 sources)Encounter for screening for infections with a predominantly sexual mode of transmission; Translations: [Exposure to sexually transmissible disorder]Onset: 264493-27-2285FnjxsusbBfdjfijfe disorders (1 source)Missed period; Translations: [Irregular menstruation, unspecified] 37-47-3956WbpirhhUfhrrfemjdlx breast conditions (1 source)Mastodynia; Translations: [Mastodynia]EpisodicOther circulatory disease (1 source)Elevated blood pressure; Translations: [Elevated blood pressure reading]EpisodicOther female genital disorders (2 sources)Vaginal discharge; Translations: [Other specified noninflammatory disorders of vagina]72-67-7528ZnjolltnDxahz and delivery including normal (20 sources)Normal ; Translations: [Encounter for supervision of normal , unspecified, unspecified trimester]Onset: 11-26-2020 Resolved: 156059-90-8751TioswfevWlczn screening for suspected conditions (not mental disorders or infectious disease) (4 sources)Patient encounter status; Translations: [Encounter for other specified screening]51-74-5984CpvfzwhgWkktl skin disorders (1 source)Facial swelling ; Translations: [Jaw swelling]EpisodicOther upper respiratory infections (3 sources)Upper respiratory infection; Translations: [Acute upper respiratory infection, unspecified]Onset: 08-59-6825CmekptvzTpgflwzb codes; unclassified (1 source)H/O: Disorder; Translations: [History of low potassium]Episodic Residual codes; unclassified (2 sources)Gestation period, 27 weeks; Translations: [27 weeks gestation of ]EpisodicResidual codes; unclassified (1 source)Gestation period, 36 weeks; Translations: [36 weeks gestation of ]EpisodicResidual codes; unclassified (2 sources)Gestation period, 17 weeks; Translations: [17 weeks gestation of ]72-47-3740QavsvgzeMvdenwmz codes; unclassified (2 sources)Gestation period, 21 weeks; Translations: [21 weeks gestation of ]81-41-4854KijzikbvSfczjhqo codes; unclassified (2 sources)Gestation period, 25 weeks; Translations: [25 weeks gestation of ]14-09-2405CcroxkcrDawbnmrmv-related disorders (1 source)Nicotine dependence, other tobacco product, uncomplicated; Translations: [Nicotine dependence, other tobacco product, uncomplicated]Onset: 98-77-3991Gjlbgta Past or Other Problems Problem ClassificationProblemDateDocumented DateEpisodic/ChronicOther complications of (17 sources)Late entry into care; Translations: [Supervision of with insufficient care, second trimester]Onset: 11-26-2020 Resolved: 831599-75-4312GgjpfzwiVenco complications of (15 sources)Chlamydia trachomatis infection in ; Translations: [Other infections with a predominantly sexual mode of transmission complicating , second trimester]Onset: 818058-27-2691Wfytuuny Results Test NameValueInterpretationReference RangeFacilityNo Panel InformationOrdered By: Radiologist Radiology on 95-86-5793[facility] Work Phone: No Panel Informationon 46-55-9534Qpsmcimpn Study observation (narrative)NOMS HealthcareUS OB ANATOMYon 30-52-[address]29U[address] [address] Ultrasound Report Signed Patient: EVA GRANADOS MR#: [id number] : 2000 Acct:[id number] Age/Sex: 24 / F ADM Date: 07/07/25 Loc: US Attending Dr: Tatiana Alcaraz Ordering Physician: Tatiana Alcaraz Date of Service: 07/07/25 Procedure(s): US OB anatomy Accession Number(s): [id number] cc: SANTINO CUEVA ; Tatiana Alcaraz [place] [address] Patient Name: EVA GRANADOS MRN: [facility]:[id number] date: 2000 Sex: F Assigned Patient Location: Current Patient Location: Accession/Order Number: [id number] Exam Date: 07/07/2025 13:57 Report Date: 07/08/2025 08:12 At the request of: TATIANA ALCARAZ Procedure: US OB cervical length CLINICAL [...] all 4 extremities were surveyed by the social media project manager and no abnormalities were detected. The stomach, [...] Cash M.D. 07/08/2025 8:12 AM Dictation Location: [place] [address] Electronically authenticated by: [id number] Date: 07/08/2025 08:12 Dictated By: Danni Cash M.D. Signed By: 07/08/25814 DD/ 1 TD/TT: Stem Crusher:TBHRadiology, Radiologist, - 07/08/2025 [place] [address] Ultrasound Report Signed Patient: EVA GRANADOS MR#: [id number] : 2000 Acct:[id number] Age/Sex: 24 / F ADM Date: 07/07/25 Loc: US Attending Dr: Tatiana Alcaraz Ordering Physician: Tatiana Alcaraz Date of Service: 07/07/25 Procedure(s): US OB anatomy Accession Number(s): [id number] cc: SANTINO CUEVA ; Tatiana Alcaraz [place] [id number] Patient Name: EVA GRANADOS MRN: [facility]:[id number] date: 2000 Sex: F Assigned Patient Location: Current Patient Location: Accession/Order Number: [id number] Exam Date: 07/07/2025 13:57 Report Date: 07/08/2025 08:12 At the request of: TATIANA ALCARAZ Procedure: US OB cervical length CLINICAL [...] all 4 extremities were surveyed by the social media project manager and no abnormalities were detected. The stomach, [...] Cash M.D. 07/08/2025 8:12 AM Dictation Location: [place] [address] Electronically authenticated by: [id number] Y Date: 07/08/2025 08:12 Dictated By: Danni Cash M.D. Signed By: 07/08/25814 DD/ 1 TD/TT: Stem Crusher: YANELI Hodges OB CERVICAL LENGTHon 47-40[place] [address] Ultrasound Report Signed Patient: EVA GRANADOS MR#: [id number] : 2000 Acct:[id number] Age/Sex: 24 / F ADM Date: 07/07/25 Loc: US Attending Dr: Tatiana Alcaraz Ordering Physician: Tatiana Alcaraz Date of Service: 07/07/25 Procedure(s): US OB cervical length Accession Number(s): [id number] cc: SANTINO CUEVA Kristina [place] [address] Patient Name: EVA GRANADOS MRN: [facility]:[id number] date: 2000 Sex: F Assigned Patient Location: US Current Patient Location: Accession/Order Number: [id number] Exam Date: 07/07/2025 13:57 Report Date: 07/08/2025 08:12 At the request of: TATIANA ALCARAZ Procedure: US OB cervical length CLINICAL [...] all 4 extremities were surveyed by the social media project manager and no abnormalities were detected. The stomach, [...] Cash M.D. 07/08/2025 8:12 AM Dictation Location: [place] [address] Electronically authenticated by: [id number] Y Date: 07/08/2025 08:12 Dictated By: Danni Cash M.D. Signed By: 07/08/25814 DD/ 1 TD/TT: Stem Crusher:TBHRadiology, Radiologist, - 07/08/2025 [place] [address] Ultrasound Report Signed Patient: EVA GRANADOS MR#: [id number] : 2000 Acct:[id number] Age/Sex: 24 / F ADM Date: 07/07/25 Loc: US Attending Dr: Tatiana Alcaraz Ordering Physician: Tatiana Alcaraz Date of Service: 07/07/25 Procedure(s): US OB cervical length Accession Number(s): [id number] cc: SANTINO CUEVA ; Tatiana Alcaraz [place] [address] Patient Name: EVA GRANADOS MRN: [id number]:[id number] date: 2000 Sex: F Assigned Patient Location: US Current Patient Location: Accession/Order Number: [id number] Exam Date: 07/07/2025 13:57 Report Date: 07/08/2025 08:12 At the request of: TATIANA ALCARAZ Procedure: US OB cervical length CLINICAL [...] all 4 extremities were surveyed by the social media project manager and no abnormalities were detected. The stomach, [...] Cash M.D. 07/08/2025 8:12 AM Dictation Location: [place] [address] Electronically authenticated by: [id number] Y Date: 07/08/2025 08:12 Dictated By: Danni Cash M.D. Signed By: 07/08/25814 DD/ 1 TD/TT: Stem Crusher: YANELI [facility] DRUG SCREEN RAPID (URINE)on 80-13-0082ERNFRWBIRCN SCREEN URINENegativeNEGATIVENOMS HealthcareBARBITURATES SCREEN URINENegativeNEGATIVE NOMS HealthcareBENZODIAZEPINES SCREEN URINENegativeNEGATIVENOMS Healthcare BUPRENORPHINE SCREEN URINENegativeNEGATIVENOMS HealthcareComment on above:DRUG CLASS TEST SYSTEM CUT-OFF CONCENTRATIONS ARE FOLLOWS: AMP (Amphetamine): 500 ng/mL BAR (Barbiturates): 200 ng/mL BZO (Benzodiazepines): 150 ng/mL BUP (Buprenorphine): 10 ng/mL JUDSON (Cocaine): 150 ng/mL mAMP (Methamphetamine): 500 ng/mL MTD (Methadone): 200 ng/mL OPI (Opiates): 100 ng/mL OXY (Oxycodone): 100 ng/mL PCP (Phencyclidine): 25 ng/mL THC (Cannabinoids): 50 ng/mL TCA (Trycyclic Antidepressants): 300 ng/mL CANNABINOID SCREEN URINENegativeNEGATIVENOMS HealthcareCOCAINE SCREEN URINE NegativeNEGATIVENOMS HealthcareMETHADONE SCREEN URINENegativeNEGATIVENOMS HealthcareMETHAMPHETAMINES SCREEN URINENegativeNEGATIVENOMS HealthcareOPIATE SCREEN URINENegativeNEGATIVENOMS HealthcareOXYCODONE SCREEN URINENegative NEGATIVENOMS HealthcarePHENCYCLIDINE SCREEN URINENegativeNEGATIVENOMS Healthcare TRICYCLIC ANTIDEPRESSANT URINENegativeNEGATIVENOMS HealthcareCLINISYNCNOMS HealthcareUrinalysis macro (dipstick) panel (U)on 48-44-9096Cgbnqewiy, UA PositiveNegative - 4(70) +++ mg/dLNOMS HealthcareBlood, UANegativeNegative - 50 Obey/[facility] HospitalNOAL HealthcareClarity, UAClearNOAL HealthcareColor, UAYellowNOMS HealthcareGlucose, UANegativeNegative - 1999(110) ++++ mg/dLNOAL Healthcare Interpretation and review of laboratory resultsAbnormalNOAL HealthcareKetones, UANegativeNegative - 160(16) ++++ mg/dLNOAL HealthcareLeukocytes, UAPositive Negative - 500+++ Hai/mcLNOAL HealthcareNitrite, UANegativeNegative - Positive NOMS HealthcarepH, UA65 - 9NOMS HealthcareProtein, UAPositiveNegative - 1999(20) ++++ mg/dLNOAL HealthcareSpec Grav, UA1.031 - 1.03NOMS HealthcareUrobilinogen, UA1.00.2 - 12 mg/dLNOMS HealthcareNOAL HealthcareIGP,APTIMA HPV,AGE GDLNon 18-72-4514KSE GDLN ACOG TESTINGNote.[facility]Paul Health CenterComment on above:TESTS RESULT FLAG UNITS REF RANGE LAB Clinician Provided Cytology Information Source.............Endocervix Other.............. No. of containers..01 ThinPrep Vial Age Algo ACOG Ebony... -30 10 FLAG LEGEND: L-Low Normal,H-High Normal,LL-Alert Low,HH-Alert High <-Panic Low,>-Panic High,A-Abnormal,AA-Critical Abnormal Performed at: 01 =G [facility] [address] [facility], [place] [place] [address] Naima Shannon MD, IGP, RFX APTIMA HPV ASCUNote.NOMS HealthcareComment on above:TESTS RESULT FLAG UNITS REF RANGE LAB DIAGNOSIS: 02 NEGATIVE FOR INTRAEPITHELIAL LESION OR MALIGNANCY. Specimen adequacy: 02 Satisfactory for evaluation. Endocervical and/or squamous metaplastic cells (endocervical component) are present. Performed by: Vinod Mondragon, Plant Operations Vice President ([facility]) . 02 Note: Note 02 The Pap [...] High,A-Abnormal,AA-Critical Abnormal Performed at: 02 WB [facility] [address] [place] [address] Naima Shannon MD, Performed at: = - [facility] [id number] Flat Optical Element Maker: Naima Shannon MD, Phone: [phone] Performed at: [facility] [id number] Flat Optical Element Maker: Naima Shannon MD, Phone: [phone] SPATULA-ALONE ENDOCERVIX CLINISYNCNOMS HealthcareRECURRENT VAGINITIS (HTRX)on 01-43-9923LEXLXAQRB VAGINAE 29.974AbnormalNOMS HealthcareATOPOBIUM VAGINAEDetectedAbnormalNOMS Healthcare BVAB 2,3 (BACTERIAL VAGINOSIS ASSOCIATED BACTERIA 2, 3); MOBILUNCUS LKI4OYOM HealthcareBVAB 2,3 (BACTERIAL VAGINOSIS ASSOCIATED BACTERIA 2, 3); MOBILUNCUS SPPNot detectedNOMS HealthcareCANDIDA ALBICANS, PARAPSILOSIS, IYUHRHNUVO1SLIP HealthcareCANDIDA ALBICANS, PARAPSILOSIS, TROPICALISNot detectedNOMS Healthcare PABLO LLTVPUXU4UVMA HealthcareCANDIDA GLABRATANot detectedNOMS Healthcare PABLO CVOREM6JLNO HealthcareCANDIDA KRUSEINot detectedNOMS HealthcareCHLAMYDIA CAYRXSVRZXM0FGUR HealthcareCHLAMYDIA TRACHOMATISNot detectedNOMS HealthcareERMB, C; MEFA25.073AbnormalNOMS HealthcareERMB, C; MEFADetectedAbnormalNOMS Healthcare GARDNERELLA RMTCXBTSJ26.45AbnormalNOMS HealthcareGARDNERELLA VAGINALISDetected AbnormalNOMS HealthcareInterpretation and review of laboratory resultsAbnormal NOMS HealthcareMEGASPHAERA (TYPES 1, 2)0NOMS HealthcareMEGASPHAERA (TYPES 1, 2) Not detectedNOMS HealthcareMYCOPLASMA CHSOFRYOGT5YPVO HealthcareMYCOPLASMA GENITALIUMNot detectedNOMS HealthcareNEISSERIA TZSWGOVENNO3DTDA Healthcare NEISSERIA GONORRHOEAENot detectedNOMS HealthcareTET B, TET M24.604AbnormalNOMS HealthcareTET B, TET MDetectedAbnormalNOMS HealthcareTRICHOMONAS DEZNBOFIW9MMBI HealthcareTRICHOMONAS VAGINALISNot detectedNOMS HealthcareNOMS Healthcare Urinalysis macro (dipstick) panel (U)on 49-33-5526Bxdnnonig, UANegativeNegative - 4(70) +++ mg/dLNOMS HealthcareBlood, UANegativeNegative - 50 Obey/mcLNOMS HealthcareClarity, UAClearNOMS HealthcareColor, UAYellowNOMS HealthcareGlucose, UANegativeNegative - 2000(110) ++++ mg/dLNOMS HealthcareInterpretation and review of laboratory resultsNormalNOAL HealthcareKetones, UANegativeNegative - 160(16) ++++ mg/dLNOAL HealthcareLeukocytes, UANegativeNegative - 500+++ Hai/mcL NOMS HealthcareNitrite, UANegativeNegative - PositiveNOMS HealthcarepH, UA85 - 9 NOMS HealthcareProtein, UANegativeNegative - 2000(20) ++++ mg/dLNOAL Healthcare Spec Grav, UA1.011 - 1.03NOMS HealthcareUrobilinogen, UA1.00.2 - 12 mg/dLNOAL HealthcareNOAL HealthcareBOX TESTon 87-60-2602XBH TEST SENT OUTUNITY BOXNOAL FjgcyozgwnULA4LDCDKIPHH XgredoekvfEHJ76/7/25NOAL HealthcareCLINISYNCNOMS HealthcareHCG ( test) Ql (U)on 37-12-1611Ibxoagjijkpobr and review of laboratory resultsAbnormalNOAL HealthcarePreg Test, UrPositiveNegativeGeneral [facility] HealthcareUS OB TRANSVAGINALon 63-14-6715NV OB TRANSVAGINAL FINDINGS: A single intrauterine gestational [...] 2025. No pelvic fluid or adnexal mass present.Cervix closed, 7.3 cm length. IMPRESSION: Findings consistent with a live intrauterine gestation, current sonographic age of 12 weeks and 4 days resulting in an estimated date of delivery of November 16, 2025. TRANSCRIBED BY: ELECTRONICALLY SIGNED BY: Ruddy AdkinsrmalNot AvailableComment on above:Order Comment: US OB TRANSVAGINAL No LMP recorded.Urinalysis macro (dipstick) panel (U)on 36-62-7944Wwhdjkmtc, UA NegativeNegative - 4(70) +++ mg/dLNOAL HealthcareBlood, UAPositiveNegative - 50 Obey/mcLNOAL HealthcareClarity, UAClearNOAL HealthcareColor, UAAmberNOAL HealthcareGlucose, UANegativeNegative - 2000(110) ++++ mg/dLCENTRAL VALLEY [facility]ICAL [facility]ENTER Healthcare Interpretation and review of laboratory resultsAbnormalNOAL HealthcareKetones, UANegativeNegative - 160(16) ++++ mg/dLCENTRAL VALLEY MEDICAL CENTER HealthcareLeukocytes, UANegative Negative - 500+++ Hai/mcLCENTRAL VALLEY MEDICAL CENTER HealthcareNitrite, UANegativeNegative - Positive NOMS HealthcarepH, UA65 - 9NOAL HealthcareProtein, UANegativeNegative - 2000(20) ++++ mg/dLCENTRAL VALLEY MEDICAL CENTER HealthcareSpec Grav, UA1.0251 - 1.03NOAL HealthcareUrobilinogen, UA1.00.2 - 12 mg/dLGeneral Leonard [facility] HealthcareALL CBC WITH AUTO DIFFon 49-65-2430YZHFSPUIX ABSOLUTE PCNU9QVZKSSM DePaul Health CenterBasophils/100 WBC (Bld)0.4 %0.2 - 2.0 %[facility] CenterEosinophils/100 WBC (Bld)1.5 %0.9 - 7.0 %[facility] Erythrocyte distribution width (RBC) [Ratio]12.9 %11.0 - 15.0 %[facility] Hematocrit (Bld) [Volume fraction]33.3 %Low36.0 - 48.0 %[facility] Hemoglobin (Bld) [Mass/Vol]11.4 g/dLLow12.0 - 16.0 g/dLSSM DePaul Health CenterIMMATURE GRANULOCYTES ABS AUTO0.02NOCox NorthImmature granulocytes/100 WBC (Bld)0.4 % 0.0 - 0.5 %[facility] Health CenterInterpretation and review of laboratory results AbnormalNOCox NorthLYMPHOCYTES ABSOLUTE AUTO1.7NOMS [facility] Lymphocytes/100 WBC (Bld)30.7 %20.5 - 60.0 %[facility] HospitalH (RBC) [Entitic mass]30.6 pg26.7 - 34.0 pgSaint Louis University HospitalHC (RBC) [Mass/Vol]34.2 g/dL29.9 - 35.2 g/dLSSM DePaul Health CenterMCV (RBC) [Entitic vol]89.5 fL81.0 - 99.0 fLSSM DePaul Health CenterMONOCYTES ABSOLUTE AUTO0.4NOAL HealthcareMonocytes/100 WBC (Bld)7.3 % 1.7 - 12.0 %NOMS HealthcareNEUTROPHILS ABSOLUTE AUTO3.3NOCox North Neutrophils/100 WBC (Bld)59.7 %43.0 - 75.0 %NOMS HealthcarePlatelet mean volume (Bld) [Entitic vol]9.9 fL9.5 - 13.5 fLNOCox NorthTBH EO #0.1NOMS Healthcare TBH HPD006HGFT [facility] RBC3.72LowNOSaint John's Breech [facility] WBC5.5NOMidwest Orthopedic Specialty HospitalALL TYPE AND SCREENon 00-02-7999OZQ and Rh group Nom (Bld)Blood group O Rh(D) positiveUNC Health AppalachianUS OB TRANSVAGINALon 20-34-3910HN OB TRANSVAGINALEXAM: US OB TRANSVAGINAL HISTORY: Viability. COMPARISON: Ob [...] II, MD, PHD at 16-Jan-2025 01:26:48 PM [facility] TeleradiologyNormalNot AvailableComment on above:Order Comment: US OB VIABILITY PLEASE PERFORM TRANSVAGINAL ULTRASOUND IF INDICATED No LMP recorded.Urine Cultureon 70-19-1440Ceqfvvng identified Cx Nom (U)>100,000 colonies/ml mixed bacterial skin contaminants 2 Days PERFORMED BY: [place] [address] PATHOLOGIST DIRECTOR UNDERWRITER SALES ANGELIC LESLIE M.D.NormalHca Florida Osceola Hospital Physician GroupComment on above: Performed By: #### CUU #### [place] [id number] USAUS OB TRANSVAGINALon 43-40-4636HZ OB TRANSVAGINALEXAM: US OB TRANSVAGINAL HISTORY: Dating. COMPARISON: None [...] II, MD, PHD at 13-Jan-2025 11:46:49 PM [facility] TeleradiologyNormalNot AvailableComment on above:Order Comment: US OB TRANSVAGINAL No LMP recorded.STREP A MOLECULARon 89-87-5587NENQS A MOLECULARNegativeNormal NegativeFormerly named [facility] SystemComment on above:Performed By: #### [id number] #### [place] [address] USAStrep AOrdered By: Khloe Kaminski on 02-06-2023 Streptococcus.beta-hemolytic Org specific cx Ql (Unsp spec)NegativeNegative Formerly named [facility] SystemStreptococcus.beta-hemolytic Org specific cx Ql (Unsp spec)Ordered By: Khloe Kaminski on 22-77-2958Yjlycurmejhaaq and review of laboratory resultsNormalGenesis HealthCare SystemFormerly named [facility] SystemGCon 46-17-8178OOEIXJICJ AMPLIFIED PROBENegativeNormalNegativeFormerly named [facility] SystemComment on above:Performed By: #### [id number] #### [place] [address] OI AMPLIFIED PROBENegativeNormalNegativeFormerly named [facility] System Comment on above:Performed By: #### [id number] #### [employer] [address] GMuw 83-20-9857AXBMBZJBH SOURCEThinPrepNormalGProHealth [facility] SystemComment on above:Performed By: #### [id number] #### Formerly named [facility] [place] [place] [address] XG SOURCEThinPrepNormalGProHealth Waukesha [facility] SystemComment on above: Performed By: #### [id number] #### [employer] [address] ZX Breast - left limitedon 10-15-2021 Normal examination. RECOMMENDATION: Clinical Follow-Up BI-RADS: ACR BI-RADS 1: Negative Dimas Gaona MD - 10/15/2021 CLINICAL HISTORY: Patient is [...] Clinical Follow-Up BI-RADS: ACR BI-RADS 1: Negative [facility] [employer] [facility] HospitalRadiology Study observation (narrative)[facility] CenterUS Breast - left limitedOrdered By: Dimas Patel on 84-01-1109Engkcjv [employer] [facility] Work Phone: cbc without differentialOrdered By: Tatiana Lewis on 52-76-8574Yljgsjuetnp distribution width (RBC) [Ratio]13.9 %11.5 - 14.5 %[facility] Medical CenterHematocrit (Bld) [Volume fraction]28.6 %Low33.6 - 46.8 % [facility] CenterHemoglobin (Bld) [Mass/Vol]9.1 g/dLLow11.7 - 15.8 g/dL [facility] CenterInterpretation and review of laboratory resultsAbnormal [facility] CenterMCH (RBC) [Entitic mass]28.4 pg27.5 - 32.3 pgCHRISTUS [facility] – Medical CenterMCHC (RBC) [Mass/Vol]31.8 g/dL30.7 - 35.5 g/dlCHRISTUS [facility] – Medical CenterMCV (RBC) [Entitic vol]89.4 fL80.2 - 99.0 fLCHRISTUS Santa Rosa Hospital – Medical CenterPlatelets (Bld) [#/Vol]196.0 10*3/uLCHRISTUS [facility] – Medical CenterRBC (Bld) [#/Vol]3.20 10*6/uLLowCHRISTUS [facility] Medical CenterWBC LM Ql (Sput)11.3HighBaptist Health Medical CenterBUPRENORPHINE SCRN, UR, REFLEX QUANT Ordered By: Tatiana Lewis on 97-03-7531Ppxabdbfphgaw Screen, URNot detected CUTOFF <10 ng/mLCHRISTUS [facility] Medical CenterTox Messagesee belowCHRISTUS [facility] Medical CenterComment on above:Notes: 1. SCREENING RESULTS SHOULD BE CONSIDERED PRESUMPTIVE UNLESS THE PRESENCE OF THE ANALYTE HAS BEEN CONFIRMED BY A REFERENCE LAB. 2. ALL DRUG GROUPS ARE ANALYZED ON URINE. [facility] Medical CenterCBCOrdered By: Tatiana Lewis on 56-89-1488Pkxpzchzyle distribution width (RBC) [Ratio]13.4 %11.5 - 14.5 %[facility] Hematocrit (Bld) [Volume fraction]35.4 %33.6 - 46.8 %[facility] Hemoglobin (Bld) [Mass/Vol]11.9 g/dL11.7 - 15.8 g/dLCHRISTUS [facility] Interpretation and review of laboratory resultsAbnormalGHemphill County Hospital MCH (RBC) [Entitic mass]28.3 pg27.5 - 32.3 pgCHRISTUS [facility] – Medical CenterMCHC (RBC) [Mass/Vol]33.6 g/dL30.7 - 35.5 g/dlCHRISTUS [facility] Medical CenterMCV (RBC) [Entitic vol]84.1 fL80.2 - 99.0 fLCHRISTUS Santa [facility] Hospital – Medical CenterPlatelets (Bld) [#/Vol]246.0 10*3/uLCHRISTUS [facility] – Medical CenterRBC (Bld) [#/Vol]4.21 10*6/uLCHRISTUS [facility] – Medical CenterWBC LM Ql (Sput)11.9HighBaptist Health Medical Center Syphilis Treponema AntibodyOrdered By: Tatiana Lewis on 74-75-6465Rwxjwabj Treponema AntibodyNon-ReactiveNonreactiveBaptist Health Medical CenterToxicology screen, urineOrdered By: Tatiana Lewis on 16-23-2603Zjaahhgbjyyg Screen method >1000 ng/mL Ql (U)Not detectedCUTOFF <1000 ng/mLCH[facility] Medical CenterBarbiturates Screen method >200 ng/mL Ql (U)Not detectedCUTOFF <200 ng/mLCH[facility] Medical CenterBenzodiazepines Ql (U)Not detectedCUTOFF <200 ng/mLCH[facility]US [facility] Medical CenterBenzoylecgonine Screen (U) [Mass/Vol]Not detectedCUTOFF <300 ng/mLCH[facility] CenterCannabinoids Screen method >50 ng/mL Ql (U)Not detectedCUTOFF <50 ng/mLCH[facility] CenterFentanylNot detectedCUTOFF 1.0 ng/mLCH[facility] CenterOpiates Screen (U) [Mass/Vol]Not detectedCUTOFF <300 ng/mLCH[facility] Phencyclidine (U) [Mass/Vol]Not detectedCUTOFF <25 ng/mLCH[facility] CenterTox Messagesee belowCHRISTUS [facility] – Medical CenterComment on above:Notes: 1. SCREENING RESULTS SHOULD BE CONSIDERED PRESUMPTIVE UNLESS THE PRESENCE OF THE ANALYTE HAS BEEN CONFIRMED BY A REFERENCE LAB. 2. ALL DRUG GROUPS ARE ANALYZED ON URINE. [facility] CenterType and ScreenOrdered By: Tatiana Lewis on 70-20-4596FQP and Rh group Nom (Bld)Blood group O Rh(D) positiveCHRISTUS [facility] – Medical CenterBlood group antibody screen.cells I+II+III QlNegativeBaptist Health Medical CenterFern test, vaginal fluidOrdered By: Stacy Alonso on 06-88-9906Bmtn TestNONSydnie SEENNONE SEENCHI St. [facility] Patients Medical CenterCBCon 54-13-4198Aulnfvnqznc distribution width (RBC) [Ratio]13.4 %11.5 - 14.5 %[facility] CenterHematocrit (Bld) [Volume fraction]34.0 %33.6 - 46.8 %[facility] CenterHemoglobin (Bld) [Mass/Vol] 11.2 g/dLLow11.7 - 15.8 g/dLCH[facility]STUS [facility] CenterInterpretation and review of laboratory resultsAbnormalGFort Duncan Regional Medical CenterH (RBC) [Entitic mass] 29.2 pg27.5 - 32.3 pgCHRISTUS [facility] – Medical CenterMCHC (RBC) [Mass/Vol]32.9 g/dL30.7 - 35.5 g/dlCHRISTUS [facility] Medical CenterMCV (RBC) [Entitic vol]88.8 fL80.2 - 99 fL [facility] CenterPlatelets (Bld) [#/Vol]244.0 10*3/[facility] WellnessRBC (Bld) [#/Vol]3.83 10*6/[facility] WellnessWBC LM Ql (Sput)10.9 HighBaptist Health Medical CenterGlucose tolerance, 1 hour on 05-72-3912Cdwtkqg 1 Hr post 50 g glucose PO [Mass/Vol]83 mg/dLCHRISTUS [facility] Medical CenterComment on above:REFERENCE-GLUCOSE 1 HR WITH DEXTROSE Values >140 mg/dL constitute a positive screen [facility] Greensboroyphilis Treponema Antibody (RPR)on 69-15-4114Ijtqkvha Treponema AntibodyNonreactiveNonreactiveBaptist Health Medical CenterComprehensive metabolic panel aka Metaboon 53-98-4758Nwmtkcp [Mass/Vol]3.7 g/dL3.5 - 5 g/dLCHRISTUS [facility] CenterAlk Phos78 U/L24 - 126 U/[facility] CenterALT [Catalytic activity/Vol]12 U/L4 - 35 U/[facility] CenterAST [Catalytic activity/Vol]19 U/L3 - 47 U/[facility] CenterBilirubin [Mass/Vol]0.6 mg/dL0.2 - 1.6 mg/dLCH[facility] Calcium [Mass/Vol]9.5 mg/dL8.4 - 10.4 mg/dLCH[facility]STUS [facility] Medical CenterChloride [Moles/Vol]105 mmol/L96 - 109 mmol/[facility] CenterCO2 [Moles/Vol]21 mmol/LLow22 - 30 mmol/[facility] CenterComprehensive metabolic 2000 panel0.46 mg/dLLow0.52 - 1.04 mg/dLCH[facility]US [facility] CenterGlucose [Mass/Vol]87 mg/dL65 - 100 mg/dLCH[facility] CenterInterpretation and review of laboratory resultsAbnormalGHemphill County HospitalPotassium [Moles/Vol]4.2 mmol/L3.6 - 5.1 mmol/[facility] CenterProtein [Mass/Vol]6.8 g/dL6.3 - 8.2 g/dLSelect Specialty Hospital - Greensboroodium [Moles/Vol]133 mmol/AJts070 - 147 mmol/L [facility] CenterUrea nitrogen [Mass/Vol]7 mg/dLLow8 - 20 mg/dLCHRISTUS [facility] CenterGLOMERULAR FILTRATION RATEon 71-68-6955BXZ/1.73 sq M.predicted MDRD (S/P/Bld) [Vol rate/Area]mL/min/{1.73_m2}[facility] CenterComment on above:To estimate the GFR for Americans, multiply the [...] for CKD Kidney Int Suppl.2013;3:1-150 Hemoglobin A1con 25-37-3276UbW6k (Bld) [Mass fraction]4.3 %0 - 6 %[facility] CenterComment on above:Reference Interval for %A1c %A1c (NGSP) Interpretation <6.0% Non-Diabetic Range >6.5% Action Suggested . Hepatitis C antibodyon 95-26-8294YGB Ab Qn (S)NonreactiveNonreactiveBaptist Health Medical CenterLDH SERUMon 43-40-4125DWM Pyruvate to lactate reaction [Catalytic activity/Vol]513 U/L308 - 626 U/LGeUT Health HendersonOtheron 96-08-0289FxpzevlBaptist Health Medical Center Type & Screen (must order with either panel)on 33-43-7772SJS and Rh group Nom (Bld)O POSCHRISTUS [facility] – Medical CenterBlood group antibody screen.cells I+II+III QlNegativeBaptist Health Medical CenterProtein / creatinine ratio, urineon 52-65-2128Zpauadu (U) [Mass/Vol]10 mg/dL0 - 12 mg/dLCH[facility] Medical CenterProtein/Creatinine (U) [Mass ratio]0.1 [facility] CenterUr Cre-Metaii599.20 mg/dLNO NORMALSGenesOhio Valley Surgical HospitalUric acidon 14-02-8415Demwx [Mass/Vol]3.0 mg/dL2 - 7 mg/dLBaptist Health Medical Center Vital Signs Date TimeVital SignValuePerforming KwymukynjWlpblmon89-81-0567 15:19-0500Body jcerxj10.95 kgCorey Marcelo DO Work Phone: [phone] [place], [place] [address]Zwsqzphlsy69-18-9814 15:19-0500Diastolic blood yitavlzh47 mm[Hg]Robi Marcelo DO Work Phone: [phone] [place], [place] [address]Qkttycvorn17-22-2317 15:19-0500Systolic blood vsyyjlpd459 mm[Hg]Robi Marcelo DO Work Phone: [phone]10-06-2025 13:11-0400Body flxvpo95.75 kgKrld Sierraly CLASSROOM AIDE Work Phone: [phone]10-06-2025 13:11-0400Diastolic blood zycthfrb64 mm[Hg]Tatiana Kieran CLASSROOM AIDE Work Phone: [phone]10-06-2025 13:11-0400Systolic blood lhnwsjyl816 mm[Hg]Tatiana Kieran CLASSROOM AIDE Work Phone: [phone] [place], [place] 5575609-08-2025 10:59-0400Body iksqoi54.66 kgKristina Kieran CLASSROOM AIDE Work Phone: [phone] [place], [place] 5575609-08-2025 10:59-0400Diastolic blood gzxvfpbi64 mm[Hg]Tatiana Kieran CLASSROOM AIDE Work Phone: [phone]09-08-2025 10:59-0400Systolic blood chkxbyco906 mm[Hg]Tatiana Kieran CLASSROOM AIDE Work Phone: [phone]08-07-2025 13:21-0400Body .66 [facility]20[facility] 13:21-0400Diastolic blood mm[Hg] [facility]08-07-2025 13:21-0400Systolic blood luugtbjk084 mm[Hg] [facility]05-09-2023 04:32-0400Diastolic blood ggckurev85 mm[Hg] Conchita Bomsta DO Work Phone: [facility]05-09-2023 04:32-0400Heart rate69 /minConchita Brownta DO Work Phone: [phone] [place] [address] [employer] Ilikhm55-70-3513 04:32-0400 Respiratory rate18 /minConoron Kevinta DO Work Phone: [phone] [place] [address] [employer] Bjjhru62-68-2886 04:32-6141RvY6% (BldA) [Mass fraction]99 %Conchita Brownta DO Work Phone: [phone] [place] [address] [employer] Fkvnsc53-04-8675 04:32-0400Systolic blood rocubugv059 mm[Hg]Conchita Brownta DO Work Phone: [phone] [place] [address] [employer] Dqurkn66-47-8888 23:14-0400Body jjgmex832.6 cmConchita Brownta DO Work Phone: [phone] [place] [address] [employer] Jmtako22-70-6323 23:14-0400Body mass index (BMI) [Ratio]34.7 kg/b2YypisquConchita Brownta DO Work Phone: [phone] [place] [address] [employer] Mwpexj31-19-0225 23:14-0400Body bwerfcxvmgu13.91 [degF]Conchita Brownta DO Work Phone: [phone] [place] [address] [employer] Hvmnua54-01-2964 23:14-0400Body wzaiad91.52 kgConchita Brownta DO Work Phone: [phone] [place] [address] [employer] Hbvuda49-22-0154 08:00-0400Body qgghkgritki91.29 [degF]Tatiana Lewis MD Work Phone: [phone] [place] [address] [employer] Vmuyoz96-77-6079 08:00-0400 Diastolic blood fxdknutk26 mm[Hg]Tatiana Lewis MD Work Phone: [phone] [place] [address] [employer]06-23-2021 08:00-0400Heart rate76 /minTatiana Lewis MD Work Phone: [phone] [place] [address] [employer] Eulkkp67-40-6319 08:00-0400 Respiratory rate16 /minTatiana Lewis MD Work Phone: [phone] [place] [address] [employer]06-23-2021 08:00-0400Systolic blood msuxaiqh958 mm[Hg]Tatiana Lewis MD Work Phone: [phone] [place] [address] [employer] Ppakpk71-55-5366 04:00-8797QaN6% (BldA) [Mass fraction]97 %Tatiana Lewis MD Work Phone: [phone] [place] [address] [employer] Hrmrjq39-91-3887 20:37-0400Body .6 cmTatiana Lewis MD Work Phone: [phone] [place], [place] 1348806-20-2021 20:37-0400Body mass index (BMI) [Ratio]39.71 kg/g8TfuwnuhfTatiana Lewis MD Work Phone: [phone] [place] [address] [employer] Gbnrgh18-85-7777 20:37-0400Body tkbink862.58 kgTatiana Lewis MD Work Phone: [phone] [place] [address] [employer] Wagndi08-73-1989 21:50-0400 Diastolic blood gwdehkft41 mm[Hg]Stacy Alonso MD Work Phone: [phone] [place] [address] [employer] Jroswr16-88-8070 21:50-0400Heart rate77 /Claribel Alonso MD Work Phone: [phone] [place] [address] [employer] Xhjutb43-26-2428 21:50-0400Systolic blood mm[Hg]Stacy Alonso MD Work Phone: [phone] [place] [address] [employer] Ambprr00-89-6199 20:50-0400Body uiepru927.6 cmStacy Alonso MD Work Phone: [phone] [place] [address] [employer] Zwekbs22-50-9662 20:50-0400Body mass index (BMI) [Ratio]38.58 kg/q2NefjouStacy Alonso MD Work Phone: [phone] [place] [address] [employer] Qklhok88-76-2720 20:50-0400Body rqpamc358.41 kgStacy Alonso MD Work Phone: [phone] [place] [address] [employer] Wtkgkl39-93-0024 20:50-0400 Respiratory rate20 /Claribel Alonso MD Work Phone: [phone] [place], [place] 1348806-05-2021 20:48-0400Body .01 [degF]Stacy Alonso MD Work Phone: [phone] [place] [address] [employer] Uxkvfo51-71-1230 02:04-0400 Diastolic blood mm[Hg]Stacy Alonso MD Work Phone: [phone] [place] [address] [employer] Yiecno34-94-6211 02:04-0400Heart rate88 /Claribel Alonso MD Work Phone: [phone] [place] [address] [employer] Xwphep51-93-4460 02:04-0400Systolic blood qzerqmxm552 mm[Hg]Stacy Alonso MD Work Phone: [phone] [place] [address] [employer] Hxcqjo74-57-8232 01:37-0400Body eqmvej279.6 cmStacy Alonso MD Work Phone: [phone] [place] [address] [employer] Mbfjii03-32-8584 01:37-0400Body mass index (BMI) [Ratio]38.41 kg/j1RocqfvStacy Alonso MD Work Phone: [phone] [place] [address] [employer] Zazgzl02-33-7668 01:37-0400Body bwbyxwjwgut01.91 [degF]Stacy Alonso MD Work Phone: [phone] [place] [address] [employer] Hhpnot00-70-0977 01:37-0400Body tiwnfy008.96 kgStacy Alonso MD Work Phone: [phone] [place] [address] [employer] Cdwgbc73-35-4485 01:37-0400 Respiratory rate20 /Claribel Alonso MD Work Phone: [phone] [place] [address] [employer] Ljkwtt95-45-2382 21:58-0400 Diastolic blood toeoppbg76 mm[Hg]Stacy Alonso MD Work Phone: [phone] [place] [address] [employer] Ciiufe67-04-5927 21:58-0400Heart rate91 /Claribel Alonso MD Work Phone: [phone] [place] [address] [employer] Lnvfjx89-44-9264 21:58-0400 Respiratory rate18 /Claribel Alonso MD Work Phone: [facility]05-05-2021 21:58-0400Systolic blood wnguviac550 mm[Hg]Stacy Alonso MD Work Phone: [facility]11-13-2020 09:19-0500Body Nnptiivbnyq61.49 [degF][facility]11-13-2020 06:50-0500BMI (Body Mass Index)32.28 kg/m2[facility]11-13-2020 06:50-0500Body fedvdl15.72 kgJackson [facility]11-13-2020 06:50-0500BP Wbmyyijrz29 mm[Hg][facility]11-13-2020 06:50-0500BP Xgwfxdou755 mm[Hg][facility]11-13-2020 06:50-4642Jxvlzr521.6 cmAHCA [facility]11-13-2020 06:50-0500 Pulse (Heart Rate)82 /minJackson South Medical Center11-13-2020 06:50-0500 Pulse Jykrymmw85 %[facility]11-13-2020 06:50-0500 Respiratory Rate18 /minJackson South Medical Center Encounters Encounter DateEncounter TypeCare ProviderFacilityStart: 08-04-2025 End: 66-90-8517Jfljrx outpatient visit 15 minutesCorey Marcelo DO Work Phone: NOOD [facility] OBGYNComment on above:Second trimester ([facility]); 25 weeks gestation of ([facility])Start: 08-04-2025 End: 07-92-9485thdwynljpkXNHHK FAZIONot AvailableStart: 08-04-2025 End: 37-85-8115Nxgrlc flowsheetCorey Marcelo DO Work Phone: noMS [facility] OBGYNStart: 08-04-2025 End: 28-92-2539Tyrmqw flowsheetCorey Marcelo DO Work Phone: noms Brain OBGYNStart: 07-08-2025 End: 64-45-1549Sfactrqpn Result EncounterTatiana Alcaraz NP Work Phone: noms External Department UnsolicitedStart: 07-08-2025 End: 77-67-3528Aofihuhdr Result EncounterTatiana Alcaraz CLASSROOM AIDE Work Phone: noms External Department UnsolicitedStart: 07-07-2025 End: 96-11-5477Ljpbhy flowsheetNunua Kieran CLASSROOM AIDE Work Phone: NOMS [facility] OBGYNStart: 07-07-2025 End: 93-37-0441Lyczac flowsheetNunua Kieran CLASSROOM AIDE Work Phone: NOJI Brain OBGYNStart: 07-07-2025 End: 84-17-5120Dtuvvwimj Result EncounterCorey Marcelo DO Work Phone: noms External Department UnsolicitedStart: 07-07-2025 End: 42-82-5409Oiqmcc outpatient visit 15 minutesTatiana Alcaraz CLASSROOM AIDE Work Phone: NOPL [facility] OBGYNComment on above:21 weeks gestation of ([facility]); Second trimester ([facility]); Diabetes mellitus screeningStart: 07-07-2025 End: 45-48-8700pfdoxxkuamETXGWYUQ EBERLYNot AvailableStart: 06-09-2025 End: 17-08-1112Wztfwz flowsheetTatiana Sierraly CLASSROOM AIDE Work Phone: NORA [facility] OBGYNStart: 06-09-2025 End: 92-63-9244Hmeoos flowsheetNunua Kieran CLASSROOM AIDE Work Phone: NORJ [facility] OBGYNStart: 06-09-2025 End: 31-20-6206Ougwicequ Result EncounterTatiana Alcaraz CLASSROOM AIDE Work Phone: noms External Department UnsolicitedStart: 06-09-2025 End: 25-45-1124Hbcjkcdz Result EncounterTatiana Alcaraz CLASSROOM AIDE Work Phone: noms External Department UnsolicitedStart: 06-09-2025 End: 09-70-6004tmfdbygfjoFZSSLXOO EBERCLEONot AvailableStart: 06-09-2025 End: 91-73-8238Ffcmpx outpatient visit 15 minutesTatiana Alcaraz NP Work Phone: noms [facility] OBGYNComment on above:17 weeks gestation of ([facility]); Second trimester ([facility]); Screening, , for anatomic survey ([facility]); Exposure to STD; Vaginal discharge; Well woman exam with routine gynecological examStart: 06-09-2025 End: 67-20-5108Nvkdoho encounter procedureTatiana Alcaraz NP Work Phone: noms HealthcareStart: 05-08-2025 End: 40-26-7489Bwgywlibt Result EncounterCorey Marcelo DO Work Phone: noms External Department UnsolicitedStart: 05-08-2025 End: 82-30-7662Vxtqpenxj Result EncounterCorey Marcelo DO Work Phone: noms External Department UnsolicitedStart: 05-08-2025 End: 18-21-9369gebyfbvbkgOQQWRZYN EBERLYNot AvailableStart: 05-08-2025 End: 62-51-3555Cnxgau outpatient visit 5 minutesMarcelo Gooden ObNOMS Goldonna OBGYNComment on above:GA: 13r8hWrgdi: 05-08-2025 End: 84-60-7859hgmfntspgxUBKZMCNV EBERLYNot AvailableStart: 98-33-4532pfpbbxrybs Octavio MartinezFacility:[facility] Hospitaltart: 01-24-2025 End: 93-70-4926Tudtlrkvh Result EncounterCorey Marcelo DO Work Phone: noms External Department UnsolicitedStart: 01-24-2025 End: 45-59-9077Gyhaflpqc Result EncounterCorey Marcelo DO Work Phone: noms External Department UnsolicitedStart: 01-23-2025 End: 50-99-3970Lplbfabrf Result EncounterCorey Marcelo DO Work Phone: noms External Department UnsolicitedStart: 01-23-2025 End: 52-05-2242Eenvjgmjz Result EncounterCorey Marcelo DO Work Phone: noms External Department UnsolicitedStart: 01-16-2025 End: 98-88-4734iblyqckxcdOHNFGJSQ EBERLYNot AvailableStart: 01-15-2025 End: 18-98-4908wwbuimzkggRKS [facility] Work Phone: Start: 01-15-2025 End: 80-59-4996Hbmybmwi [facility] Ctr-LAB Path Spec Brain HospStart: 01-10-2025 End: 38-36-9697fwtzpndmcvZWGCIHLZ EBERLYNot AvailableStart: 03-47-5133Afestveaau [facility]-BH CredibleStart: 02-07-2023 End: 57-31-0572Fryvbtluq department patient visitNONSydnie [facility] SystemStart: 02-07-2023 End: 20-11-8210Wxcmwksqz department patient visitConchita Carrion DO Work Phone: [facility] Emergency DeptComment on above:Sore throat (Primary Dx)Start: 96-36-1882eayycquebhNICDBQ [facility] SystemStart: 06-14-2022 End: 62-25-5584fmbghzlywoUSSJZLTStoughton Hospital SystemStart: 06-14-2022 Encounter for gynecological examination (general) (routine) without abnormal findingsAur[facility] SystemStart: 06-14-2022 End: 95-02-8726wwmnnkciysEDJNHLFStoughton Hospital SystemStart: 02-06-2022 End: 24-62-8389Cfzmzmrmas hospital visit by Meredith Upton DO Work Phone: [facility] LabStart: 02-04-2022 End: 15-74-9771Gsxmcttecg hospital visit by Brooke Gutierrez APRN SETTER HELPER Work Phone: [facility] LabComment on above:URI with cough and congestionStart: 10-15-2021 End: 68-52-9664Jcibyjtgfg hospital visit by Cindy Abbasi APRN, CNP Work Phone: [phone] [place] [address] ImagingComment on above:Breast pain, leftStart: 06-08-2021 End: 16-82-5276Ctcmxohcxj hospital visit by Kodak Fitzgerald MD Work Phone: [phone])[facility] [place] [address] LabStart: 03-21-2021 End: 76-34-7265Cuqwdfakey and management of inpatientTatiana Lewis MD Work Phone: [phone] [place] [address] (2 [facility])Comment on above:Encounter for induction of labor (Primary Dx)Start: 03-06-2021 End: 29-36-9945Rohfcdlgfb hospital visit by Lorena Alonso MD Work Phone: [phone] [place] [address] ([address] [place])Start: 03-02-2021 End: 10-35-4199Ebwawyedap hospital visit by Lorena Alonso MD Work Phone: [phone] [place] [address] ([address] [place])Start: 02-24-2021 End: 54-40-3968Fywmawscdt hospital visit by Brenda Rodarte DO Work Phone: [phone] [place] [address] LabComment on above:36 weeks gestation of ; Chlamydia trachomatis infection in mother during second trimester of Start: 02-03-2021 End: 86-92-9983Sxlppkrqzr hospital visit by Lorena Alonso MD Work Phone: [phone] [place] [address] ([address] [place])Start: 01-05-2021 End: 76-23-3084Wyeyfptzdv hospital visit by Brenda Rodarte Work Phone: [phone] [place] [address] LabComment on above:27 weeks gestation of pregnancyStart: 12-21-2020 End: 18-55-9125Qjvvtxmfqm hospital visit by Brenda Rodarte Work Phone: [phone] [place] [address] LabComment on above:27 weeks gestation of ; Chlamydia trachomatis infection in mother during second trimester of Start: 11-26-2020 End: 11-48-4497Rwbpzxkkyn hospital visit by Brenda Rodarte Work Phone: [facility] LabComment on above:Late care affecting in second trimesterStart: 11-26-2020 End: 03-32-3610Cgwucmbihh hospital visit by Brenda Rodarte Work Phone: [facility] LabComment on above:Late care affecting in second trimester; History of low potassium; Elevated blood pressure readingStart: 08-14-2020 End: 65-61-9843Hwedhiulc department patient visitAmy Cao Work Phone: [facility] Emergency DeptComment on above:Pain, dental (Primary Dx); Jaw swelling Procedures DateProcedureProcedure DetailPerforming ClinicianStart: 76-48-6020SX OB ANATOMY Tatiana Alcaraz NP Work Phone: Start: 81-38-0282OI OB CERVICAL LENGTHTatiana Alcaraz NP Work Phone: Start: 56-99-6627KAV DRUG SCREEN RAPID (URINE)Robi Marcelo DO Work Phone: Start: 86-97-1355Jrids dip stick/tablet rgnt non-auto w/o micrscpTatiana Alcaraz CLASSROOM AIDE Work Phone: Start: 99-55-2667JEQWMQELQ VAGINITIS (HTRX)Tatiana Alcaraz NP Work Phone: Start: 83-18-3401Zszqy dip stick/tablet rgnt non-auto w/o micrscpTatiana Alcaraz CLASSROOM AIDE Work Phone: Start: 04-50-6247PVB,APTIMA HPV,AGE GDLNTatiana Alcaraz CLASSROOM AIDE Work Phone: Start: 98-55-6400MBW TESTCorey Marcelo DO Work Phone: Start: 05-08-2025 End: 21-15-9509Dahzn dip stick/tablet rgnt non-auto w/o micrscpCorey Marcelo DO Work Phone: Start: 02-10-0184JES CBC WITH AUTO DIFFCorey Marcelo DO Work Phone: Start: 13-54-6355Fohpjlmy screenCorey Marcelo DO Work Phone: Start: 48-00-8151QGC TYPE AND SCREENCorey Marcelo DO Work Phone: Start: 76-12-3543Zacrb streptococcus group a amplified probe tqBrandon D MOG DO Work Phone: Start: 88-13-4986Fsmnjojclrc observation [Identifier] in Cervix by Cyto stainBrandon IPWirelessdeCDEL DO Work Phone: Start: 62-61-4407Fx breast uni real time with image limitedMarianna Abbasi APRN SETTER HELPER Work Phone: Start: 19-46-2690Pqziz count complete automated Tatiana Lewis MD Work Phone: Start: 95-84-0365XHZXVKYCOSPJQ SCRN, UR, REFLEX QUANT Tatiana Lewis MD Work Phone: Start: 71-08-2668Bbpg tst prsmv instrmnt chem analyzers pr dateTatinaa Lewis MD Work Phone: Start: 83-90-6294Zogsvehc treponema pallidumTatiana Lewis MD Work Phone: Start: 16-82-2952Bpjbf count complete automated Tatiana Lewis MD Work Phone: Start: 95-05-9944JSUH AND SCREENTatiana Lewis MD Work Phone: Start: 99-28-3435Khy prim src wet mount nfct Taina Alonso MD Work Phone: Start: 41-99-0772Lyatrqno treponema pallidumCallie Cayden Work Phone: Start: 59-90-6444Lajkrax post glucose doseCallie Cayden Work Phone: Start: 06-61-9418Jurot count complete automatedCallie Cayden Work Phone: Start: 62-29-0403Lxbap of blood/uric acidCallie Cayden Work Phone: Start: 42-91-1449Ibuhtmlvalava metabolic panelCallie Cayden Work Phone: Start: 79-65-2795OMNDMGHOJP FILTRATION RATECallie Cayden Work Phone: Start: 40-48-6569Qxatqumpmx A1c/Hemoglobin.total in BloodCallie Cayden Work Phone: Start: 46-90-6611Hawtluehh c antibodyCallie Cayden Work Phone: Start: 54-64-1875Pxznvut dehydrogenase ldhCallie Cayden Work Phone: Start: 49-74-7387XKBIUQPV PANEL WITH HIVCallie Cayden Work Phone: Start: 37-13-7630YXZAWSTU T&SCallie Cayden Work Phone: Start: 84-97-9360UJFQPBV / CREATININE RATIO, URINE Nicole Cayden Work Phone: Plan of Treatment DateCare ActivityDetailAuthorStart: 39-60-4371Esnffeptmqjput of diphtheria + tetanus + acellular pertussis vaccineDTAP/TDAP/TD VACCINE (2 - Td or Tdap) Lorraine Carista App SystemStart: 86-71-6389Xvtfmlbnhu + pertussis + tetanus vaccine (product)DTAP/TDAP/TD VACCINE (2 - Td or Tdap)[facility] [employer]ista [employer] [facility] Start: 08-25-2025 End: 97-38-0290Diyigxg encounter /24/2025 9:20 AM EST Routine [facility] [address] [place], [id number] Aliya Ochoa PA [address] [place] [address] [place]EL[facility] [place] OBGYNStart: 08-04-2025 End: 52-51-2468Rtvdrlj encounter procedureNOMS [place] OBGYNComment on above: ArrivedStart: 07-07-2025 End: 65-85-1060GUR panel - Blood by Automated countCBC Lab Routine Diabetes mellitus screening Expected: 07/07/2025 (Approximate), Expires: 07/07/2026[facility] Work Phone: comment on above:Expected: 07/07/2025 (Approximate), Expires: 07/07/2026Start: 07-07-2025 End: 99-73-0824Efujarseihx of glucose 1 hour after glucose challenge for glucose tolerance testGlucose tolerance, 1 hour Lab Routine Diabetes mellitus screening Expected: 07/07/2025 (Approximate), Expires: 07/07/2026[facility] HealthcareComment on above:Expected: 07/07/2025 (Approximate), Expires: 07/07/2026Start: 07-07-2025 End: 23-12-1720Kwaufls encounter procedureNOMS [place] OBGYNComment on above: ArrivedStart: 07-07-2025 End: 79-51-6370Bwfxoepzqygr / ancillary services bmytrrbmhw28/06/2025 1:00 PM EDT Ancillary Procedure YANELI HATHAWAY [address] [place] [id number] [phone] Brain OBGYNStart: 55-28-5222Cctyifhgj for malignant neoplasm of cervixPAP [facility] SystemStart: 06-09-2025 End: 98-61-3514Lyaac fetoprotein, maternalAlpha fetoprotein, maternal Lab Routine 17 weeks gestation of ([facility]) Second trimester ([facility]) Expected: 06/09/2025 (Approximate), Expires: 07/09/2025[facility] Comment on above:Expected: 06/09/2025 (Approximate), Expires: 07/09/2025Start: 06-09-2025 End: 70-13-6856YS for pregnancyUS OB 14+ weeks anatomy scan Imaging Routine Screening, , for anatomic survey ([facility]) Expected: 06/09/2025, Expires: 09/08/2025[facility] HealthcareComment on above:Expected: 06/09/2025, Expires: 09/08/2025Start: 06-09-2025 End: 66-45-2378Cmylant encounter pwovqwpjk45/08/2025 10:40 AM EDT Routine [facility] [address] [place] [phone] Roib Robertson DO [address] [place] [address] [facility] Brain OBGYNStart: 05-08-2025 End: 76-89-8043GND/RhABO/Rh Lab Routine Missed menses , unspecified gestational age ([facility]) Expected: 05/08/2025 (Approximate), Expires: 05/08/2026[facility] HealthcareComment on above:Expected: 05/08/2025 (Approximate), Expires: 05/08/2026Start: 05-08-2025 End: 40-94-7516Vlszy type and Indirect antibody screen panel - BloodType and screen Lab Routine Missed menses , unspecified gestational age ([facility]) Expected: 05/08/2025 (Approximate), Expires: 05/08/2026[facility] Healthcare Comment on above:Expected: 05/08/2025 (Approximate), Expires: 05/08/2026Start: 05-08-2025 End: 10-16-5319Depcx of abuse panel - Urine by Screen methodRapid drug screen, urine Lab Routine , unspecified gestational age ([facility]) Encounter for supervision of normal first in first trimester ([facility]) Expected: 05/08/2025 (Approximate), Expires: 05/08/2026[facility] HealthcareComment on above: Expected: 05/08/2025 (Approximate), Expires: 05/08/2026Start: 05-07-2025 End: 87-24-3749AF Pelvis transvaginalUS OB transvaginal Imaging Routine Missed menses Positive urine test ([facility]) Expected: 05/07/2025, Expires: 08/07/2025[facility] Work Phone: comment on above:Expected: 05/07/2025, Expires: 08/07/2025Start: 01-30-2025 End: 50-74-6810Sttudge encounter unzzkfnmu16/01/2025 10:50 AM EDT Office Visit [facility] [address] [place] [phone] Robi Robertson, DO [address] [place] [address] [facility] OBStart: 81-36-5909Gzwwc cultureSelect Medical TriHealth Rehabilitation Hospitaltart: 87-84-7879Fcecfebz identified in Urine by Culture Urine CultureSelect Medical TriHealth Rehabilitation Hospitaltart: 06-20-2023 End: 17-59-2750Vqufmzj encounter hwjfzujap39/19/2023 Office Visit Obstetrics and Gynecology Belle Ochoa APRN SETTER HELPER [address] [place] [address] [facility] OBSTETRICS/GYNECOLOGYStart: 06-15-2023 ANNUAL WELLNESS VISITANNUAL WELLNESS VISITSelect Specialty Hospital - Greensborotart: 13-71-1570PUAKDBMJL SCREENINGCHLAMYDIA SCREENINGSelect Specialty Hospital - Greensborotart: 76-85-7232Abhbftogp vaccination givenINFLUENZA VACCINE (Season Ended)Formerly named [facility] SystemStart: 17-16-7563Wwvcuqdjt vaccination givenINFLUENZA VACCINE (Season Ended)Formerly named [facility] SystemStart: 05-25-2022 End: 86-91-1166Kmzgjof encounter sqczozldh72/24/2022 Office Visit Obstetrics and Gynecology Belle Ochoa APRN SETTER HELPER [address] [place] [address] [facility] OBSTETRICS/GYNECOLOGYStart: 02-24-2022 CHLAMYDIA SCREENINGCHLAMYDIA SCREENINGFormerly named [facility] SystemStart: 12-21-2021 CHLAMYDIA SCREENINGCHLAMYDIA SCREENINGFormerly named [facility] SystemStart: 11-26-2021 CHLAMYDIA SCREENINGCHLAMYDIA SCREENINGFormerly named [facility] SystemStart: 10-18-2021 End: 72-01-0250Yxqwbiv encounter rociviitw89/17/2022 Office Visit Dentistry Alka Adams DDS [address] [place] [address] [facility]: 58-73-9674Ozlieevlt for malignant neoplasm of cervixPAP SMEARFormerly named [facility] SystemStart: 07-22-2021 End: 77-24-8943Gcvoosi encounter /21/2021 Office Visit Dentistry Alka Adams DDS [address] [place] [address] [facility]Start: 15-00-3092Kpzuokkhn vaccination givenFormerly named [facility] SystemStart: 05-12-2021 End: 30-93-1461kjcsklwujw34/11/2021 Visit Obstetrics and Gynecology Nicole Rodarte DO [address] [facility] [address] [place] [address] [phone] [facility] OBSTETRICS/GYNECOLOGYStart: 03-10-2021 End: 59-64-0443Qtsgkpj encounter /09/2021 Routine Obstetrics and Gynecology Nicole Rodarte DO [address] [facility] [address] [place] [address] [phone] [facility] OBSTETRICS/GYNECOLOGYStart: 03-04-2021 End: 83-40-9699Cwlelfz encounter tcutznuga22/03/2021 Routine Obstetrics and Gynecology Nicole Rodarte DO [address] [employer] [facility] [address] [place] [address] [phone] [facility] OBSTETRICS/GYNECOLOGYStart: 02-24-2021 End: 58-91-4252Uwzdgwf encounter nvaruskuy03/26/2021 Routine Obstetrics and Gynecology Nicole Rodarte DO [address] [facility] [address] [place] [address] [phone] [facility] OBSTETRICS/GYNECOLOGYStart: 02-11-2021 End: 33-59-6845Cfrlyjx encounter /13/2021 Routine Obstetrics and Gynecology Nicole Rodarte DO [address] [facility] [address] [place] [address] [facility] OBSTETRICS/GYNECOLOGYStart: 01-11-2021 End: 17-96-8472Kqoyhej Kxhbnjud00/12/2021 Routine Obstetrics and Gynecology Nicole Rodarte DO [address] [facility] [address] [place] [address] [phone] [facility] OBSTETRICS/GYNECOLOGYStart: 12-24-2020 End: 98-62-7592Mdsokyi Fudraoxm18/25/2021 Routine Obstetrics and Gynecology Nicole Rodarte DO [address] [facility] [address] [place] [address] [phone] [facility] OBSTETRICS/GYNECOLOGYStart: 06-02-2020 Influenza vaccination givenINFLUENZA VACCINE (#1)[facility]: 81-81-6644GFWHWF WELLNESS VISITANNUAL WELLNESS VISITCHRISTUS [facility] Start: 08-47-3971RSXIFOKJR SCREENINGCHLAMYDIA SCREENINGCHRISTUS Santa [facility] Start: 54-29-9422Zvpli depression screening assessmentDEPRESSION SCREENING [facility]: 23-46-1412Sboghnxizz screening using PHQ-9 (Patient Health Questionnaire 9) scoreDEPRESSION SCREENINGSelect Specialty Hospital [facility] Greensborotart: 95-69-1218Gqbijgicwg + pertussis + tetanus vaccine (product) DTAP/TDAP/TD VACCINE (1 - Tdap)[facility]: 82-50-3938Rkbeu papilloma virus vaccination givenHPV VACCINES (GARDASIL) (1 - 2-dose series) [facility]: 67-55-5275Ziplycleswa for human papillomavirus HPV VACCINES (GARDASIL) (1 - 2-dose series)[facility]: 24-29-7046JUCCF-19 VACCINE (1)COVID-19 VACCINE (1)[facility] Start: 28-99-2868MRALH-19 VACCINE (#1)COVID-19 VACCINE (#1)[facility] Medical CenterBacteria identified in Urine by CultureUrine culture Microbiology Routine Missed menses Ordered: 05/08/2025[facility] HealthcareComment on above:Ordered: 05/08/2025BC W Auto Differential panel - BloodCBC and differential Lab Routine Missed menses , unspecified gestational age ([facility]) Ordered: 05/08/2025[facility] HealthcareComment on above:Ordered: 05/08/2025HLAMYDIA TRACHOMATIS (GENITO/STI)CHLAMYDIA TRACHOMATIS (GENITO/STI) Lab Routine Exposure to STD Ordered: 06/09/2025[facility] HealthcareComment on above:Ordered: 06/09/2025 End: 93-65-3184Kyhnacwhu trachomatis+Neisseria gonorrhoeae rRNA [Presence] in Cervix by ProbeGC &Chlamydia Microbiology Routine Late care affecting in second trimester 1Occurrences starting 11/26/2020 until 11/26/2020 [facility] Medical CenterComment on above:1 Occurrences starting 11/26/2020 until 11/26/2020hlamydia trachomatis+Neisseria gonorrhoeae rRNA [Presence] in Cervix by [facility] End: 37-19-7265Earkkxlqb trachomatis+Neisseria gonorrhoeae rRNA [Presence] in Cervix by ProbeGC & CHLAMYDIA AMPLIFIED PROBE Microbiology Routine 27 weeks gestation of Chlamydia trachomatis infection in mother during second trimester of 1 Occurrences starting 12/21/2020 until 12/21/2020[facility] Health[facility] SystemComment on above:1 Occurrences starting 12/21/2020 until 12/21/2020 End: 45-59-3408Mkbxktnqa trachomatis+Neisseria gonorrhoeae rRNA [Presence] in Cervix by ProbeGC & Chlamydia Amplified Probe Microbiology Routine 36 weeks gestation of Chlamydia trachomatis infection in mother during second trimester of 1 Occurrences starting 02/24/2021 until 02/24/2021Formerly named [facility] SystemComment on above:1 Occurrences starting 02/24/2021 until 02/24/2021 End: 23-29-6893MZICD-19 (2019 NOVEL CORONAVIRUS)[facility] Work Phone: Comment on above:One Time for 1 Occurrences starting 06/08/2021 until 06/08/2021ytology Cervical or vaginal smear or scraping study Pap Smear Pathology and Cytology Routine Well woman exam with routine gynecological exam Ordered: 06/09/2025[facility] CenterComment on above:Ordered: 06/09/2025 End: 33-88-1089Qqaa Screen Urine Extended PanelDrug Screen Urine Extended Panel Lab Routine Late care affecting in second trimester 1 Occurrences starting 11/26/2020 until 11/26/2020Formerly named [facility] SystemComment on above:1 Occurrences starting 11/26/2020 until 11/26/2020rug Screen Urine Extended PanelDrug Screen Urine Extended Panel Lab Routine Late care affecting in second trimester 11/26/2020 3:23 PM [facility]woodFetal nonstress testFetal nonstress test OB Routine Daily 0500 until discontinued starting 03/07/2021[facility] CenterComment on above:Daily 0500 until discontinued starting 03/07/2021 End: 47-43-3128Vdoeyrt Group B Strep ScreenGenital Group B Strep Screen Microbiology Routine 36 weeks gestation of 1 Occurrences starting 02/24/2021 until 02/24/2021[facility] CenterComment on above:1 Occurrences starting 02/24/2021 until 02/24/2021Genital Group B Strep Screen Genital Group B Strep Screen Microbiology Routine 36 weeks gestation of 02/24/2021 10:[address] [facility] HospitalHemoglobin A1c/Hemoglobin.total in BloodHemoglobin A1c Lab Routine Missed menses , unspecified gestational age ([facility]) Ordered: 05/08/2025[facility] HealthcareComment on above:Ordered: 05/08/2025Hepatitis B virus surface Ag [Presence] in Serum or Plasma by ImmunoassayHepatitis B surface antigen Lab Routine Missed menses , unspecified gestational age ([facility]) Ordered: 05/08/2025[facility] HealthcareComment on above:Ordered: 05/08/2025Hepatitis C virus Ab [Presence] in Serum or Plasma by ImmunoassayHepatitis C antibody Lab Routine Missed menses , unspecified gestational age ([facility]) Ordered: 05/08/2025[facility] HealthcareComment on above:Ordered: 05/08/2025HIV-1/HIV-2 antigen/antibody combination immunoassayHIV-1 and HIV-2 antibodies Lab Routine Missed menses , unspecified gestational age ([facility]) Ordered: 05/08/2025[facility] HealthcareComment on above:Ordered: 05/08/2025Neisseria gonorrhoeae DNA [Presence] in Unspecified specimen by MARIZA with probe detectionNeisseria gonorrhea DNA probe, direct Lab Routine Exposure to STD Ordered: 06/09/2025[facility] HealthcareComment on above:Ordered: 06/09/2025 End: 65-67-7939WYIO Nitrazine TestPOCT Nitrazine Test OB Routine One Time for 1 Occurrences starting 03/06/2021 until 03/06/2021Formerly named [facility] SystemComment on above:One Time for 1 Occurrences starting 03/06/2021 until 03/06/2021 PANEL WITH HIVPrenatal Panel with HIV Lab Routine Late care affecting in second trimester 11/26/2020 3:26 PM [facility] SystemReagin Ab [Presence] in Serum by RPRRPR Lab Routine Missed menses , unspecified gestational age ([facility]) Ordered: 05/08/2025[facility] HealthcareComment on above:Ordered: 05/08/2025Rubella antibody, IgGRubella antibody, IgG Lab Routine Missed menses , unspecified gestational age ([facility]) Ordered: 05/08/2025[facility] HealthcareComment on above:Ordered: 05/08/2025 End: 62-28-9951DRPT-COV-2, [employer] Work Phone: comment on above:One Time for 1 Occurrences starting 02/04/2022 until 02/04/2022 End: 45-66-2598OWEO-COV-2, [employer] Work Phone: comment on above:One Time for 1 Occurrences starting 02/06/2022 until 02/06/2022URESWAB(R) ADVANCED VAGINITIS PLUS, TMASURESWAB(R) ADVANCED VAGINITIS PLUS, TMA Pathology and Cytology Routine Vaginal discharge Ordered: 06/09/2025[facility] [employer] Work Phone: comment on above:Ordered: 06/09/2025 End: 96-84-8095Eshhx culture and sensitivityUrine culture and sensitivity Microbiology Routine Late care affecting in secondtrimester 1 Occurrences starting 11/26/2020 until 11/26/2020[facility] Comment on above:1 Occurrences starting 11/26/2020 until 11/26/2020Urine culture and sensitivityUrine culture and sensitivity Microbiology Routine Late care affecting in secondtrimester 11/26/2020 3:23 PM [facility] SystemUS Pelvis transvaginalUS OB transvaginal Imaging Routine Missed menses Positive urine test ([facility]) 2:54 PM [facility] Immunizations Immunization DateImmunizationNotesCare PoqjpoxyRqjunjqx91-43-2131rgasksb toxoid, reduced diphtheria toxoid, and acellular pertussis vaccine, adsorbedStacy Alonso MD Work Phone: [phone]11-25-2008influenza virus vaccine, unspecified formulationTatiana Lewis MD Work Phone: [phone] [address] StreetNEGATED: Highlighted row has not occurred!67-00-9898igpnacc, mumps and rubella virus vaccineTatiana Lewis MD Work Phone: [phone] [place], [place] [address]Comment on above:Deferred: - immune Payers DatePayer CategoryPayerPolicy [id number]-pay2025Medicaid (Managed Care)[employer] Member Subscriber Plan / Payer (Effective 2024-Present) Name: Roberta Casselton Relation to Subscriber: Self Name: Eva Granados Payer ID: Not on file Group ID: Not on file Type: Not on file Address: [address] [id number] [id number] [id number] 2021MedicaidBUCKEYEMedicaidBUCKEYE COMMUNITY HEALTH [facility] [id number] 2020-Present [phone] [id number] [place] [address] Medicaid [id number] [id number] 2.16.840.1.509229.3.57[id number] 2.16.840.1.317824.3.57[id number] 2.16.840.1.006294.3.57[id number] 2.16.840.1.746394.3.57[id number] 2.16.840.1.832618.3.57[id number] 2.16.840.1.092097.3.57[id number] 2.16.840.1.590701.3.57[id number] 2.16.840.1.184009.3.57[id number] 2.16.840.1.030823.3.57[id number] 2.16.840.1.945957.3.579.2.1259 Social History DateTypeDetailFacilityStart: 08-14-2020 End: 61-77-8763Foiwntd smoking status NHISFormer smokerFormerly named [facility] Start: 08-14-2020 End: 66-25-9140Josbzbr use and exposureNever usedFormerly named [facility] SystemStart: 38-97-8146Osd Assigned At BirthNot on [facility] SystemStart: 01-27-2023 End: 11-10-0051Cpfgzfuh to SARS-CoV-2 (event)Not sureFormerly named [facility] End: 72-05-8169Kofdspk of tobacco useCurrent smokerFormerly named [facility] Start: 11-26-2020 End: 33-44-1508Zyouvjt intakeEx-drinker (finding)Formerly named [facility] SystemStart: 43-45-1654DhclwnplAlvozxc HealthCare SystemExposure to SARS-CoV-2 (event)Unable to assessFormerly named [facility] SystemStart: 73-70-0727Jcl Assigned At BirthFemale Formerly named [facility] Work Phone: Start: 09-21-2021 End: 27-62-7357Qljhzzd smoking status NHISCurrent every day smokerFormerly named [facility] Work Phone: History of tobacco useTobacco Use Types Packs/Day Years Used Date Smoking Tobacco: Every Day E-Cig/Vaping Smokeless Tobacco: Never Formerly named [facility] SystemStart: 84-44-8442Tprqvbm intakeCurrent drinker of alcohol (finding)Formerly named [facility] SystemStart: 16-12-4507Gtasqnx Commentocc [facility] CenterTobacco smoking status NHISTobacco smoking consumption unknownSSM DePaul Health CenterGender identityNot on [facility] SystemStart: 01-17-2025 SexPatient sex unknown (finding)[facility] Hospitaltart: 44-60-3953UryUvkwtaPBTD Healthcare Clinical Notes 02-03-2021 to 08-04-2025 Note Date & FljfOmfoRfkruvio42-30-4881 History of Present illness Narrative* Ariella Wells, ANTHONY - 08/04/2025 3:10 PM EST Reason for Appointment: Patient ID: Eva Granados is a 24 y.o. female who presents for Routine Visit Patient presents today for Return OB appointment. MEDICATIONS Current Outpatient Medications Medication Instructions Vit-Fe Fumarate-FA ( Vitamins) 28-0.8 MG tablet [...] No family history on file. SURGICAL HISTORY No past surgical history on file. REVIEW OF SYSTEMS Review of Systems: Review of Systems Constitutional: Negative. HENT: Negative. Eyes: Negative. Respiratory: Negative. Cardiovascular: Negative. Gastrointestinal: Negative. Genitourinary: Negative. Musculoskeletal: Negative. Skin: Negative. Neurological: Negative. All other systems reviewed and are negative. Hematological: Negative. Endocrine: Negative. Allergic/Immunologic: Negative. OBJECTIVE Objective: Physical Exam Constitutional: Appearance: Normal appearance. She is well-developed. Cardiovascular: Rate and Rhythm: Normal rate and [...] nursing note reviewed. Exam conducted with a math specialist present. Vitals: There is no height or weight on file to calculate BMI. BP: 130/70 Patient's last menstrual period was 04/14/2025. Assessment/Plan ICD-10-CM 1. Second trimester ([facility]) Z34.92 2. 25 weeks gestation of ([facility]) Z3A.25 Patient presents today for a routine obstetrics appointment. Patient is currently 25w1d with a Estimated Date of Delivery: 11/16/25. Patient given orders to have 1 hour gtt and CBC. Patient to return to clinic in 3 weeks. Will get growth US around 30 weeks gestation. Documented by Ariella Wells LPN on behalf of: Robi Robertson DO documented in this encounterSSM DePaul Health [id number] History of Present illness Narrative* Ariella Wells LPN - 06/09/2025 10:40 AM [...] nursing note reviewed. Exam conducted with a math specialist present. Vitals: There is no height or weight on file to calculate BMI. BP: 118/68 Patient's last menstrual period was 04/14/2025. ASSESSMENT & PLAN ICD-10-CM 1. 17 weeks gestation of ([facility]) Z3A.17 POCT urinalysis dipstick manually resulted Alpha fetoprotein, maternal Alpha fetoprotein, maternal 2. Second trimester ([facility]) Z34.92 POCT urinalysis dipstick manually resulted Alpha fetoprotein, maternal Alpha fetoprotein, maternal 3. Screening, , for anatomic survey ([facility]) Z36.89 US OB 14+ weeks anatomy scan [...] obtained without difficulty and patient was given [facility] order to have obtained. Orders Placed This Encounter Procedures US OB 14+ weeks anatomy scan CHLAMYDIA TRACHOMATIS (GENITO/STI) Neisseria gonorrhea DNA probe, direct Alpha fetoprotein, maternal POCT urinalysis dipstick manually resulted Follow Up: Patient is to return to our office in 4 weeks for routine OB appointment Documented by Ariella Wells LPN on behalf of: Tatiana Alcaraz NP documented in this encounterSSM DePaul Health [id number] History of Present illness Narrative* Kimmie Pitts, SECURITY CONSULTANT - 05/08/2025 1:00 PM EDT Reason for [...] urinalysis dipstick manually resulted Positive urine test ([facility]) - US OB transvaginal; Future , unspecified gestational age ([facility]) - Type and screen; Future - ABO/Rh; Future - CBC and differential - Hemoglobin A1c - RPR - Rubella antibody, IgG - Hepatitis B surface antigen - Hepatitis C antibody - HIV-1 and HIV-2 antibodies - Rapid drug screen, urine; Future Encounter for supervision of normal first in first trimester ([facility]) - Rapid drug screen, urine; Future Nurse [...] or undercooked meat, and stay away from [facility]. Patient has also been advised to not change litter boxes and eat 6 small meals a day. Patient has been consulted regarding the do's and don'ts ofpregnancy. Patient was given labs and all questions and concerns were answered. Patient given [place] to have obtained with Initial labs. Patient [...] by: Kimmie Pitts LPN documented in this encounterSSM DePaul Health [id number] Emergency department Note * Ava Lassiter RN - 02/07/2023 4:32 AM EDT Discharge instructions given to pt. Pt verbalized understanding. Skin p/w/d, RR easy and unlabored.ID band removed from arm, pt ambulates to lobby with ease. [facility]05[facility]09[facility] Emergency department Note* Ava Lassiter RN - 02/07/2023 4:32 AM EDT Discharge instructions given to pt. Pt verbalized understanding. Skin p/w/d, RR easy and unlabored.ID band removed from arm, pt ambulates to lobby with ease. * Ava Lassiter RN - 02/07/2023 2:52 AM EDT Pt ambulates to room with steady gait with c/o throat tightness starting at approx 2200 last evening. Pt denies any pain. Pt denies any fevers, body aches and chills. Pt sts she only coughs to help her throat feel better. Pt denies any injury to the same. Pt sts she was eating approx 15min prior tosensation. Denies any choking or difficulty with swallowing. RR easy and unlabored, airway patent, skin pwd, NAD noted. * Ruthie Higgins RN - 02/06/2023 11:12 PM EDT Pt arrives to the ED for throat tightness. Onset over last 1 1/2 hour. Denies any throat pain, justtightness. Denies any known for cause. Pt A & O. Resp reg. Speech is clear. No distress during triage. documented in this encounterCHRIST[facility] Emergency department Note* Ava Lassiter RN - 02/07/2023 2:52 AM EDT Pt ambulates to room with steady gait with c/o throat tightness starting at approx 2200 last evening. Pt denies any pain. Pt denies any fevers, body aches and chills. Pt sts she only coughs to help her throat feel better. Pt denies any injury to the same. Pt sts she was eating approx 15min prior tosensation. Denies any choking or difficulty with swallowing. RR easy and unlabored, airway patent, skin pwd, NAD noted. [facility]05-08-2023 Emergency department Triage note* Ruthie Higgins RN - 02/06/2023 11:12 PM EDT Pt arrives to the ED for throat tightness. Onset over last 1 1/2 hour. Denies any throat pain, justtightness. Denies any known for cause. Pt A & O. Resp reg. Speech is clear. No distress during triage. [employer]01-14-2022 NoteCLINICAL HISTORY: Patient is a 21-year-old woman referred [...] account for the patient's pain. Normal examination. [facility]06-23-2021 Miscellaneous Notes* Nursing - Maile Moses RN - 03/24/2021 1:31 PM EDT Dischg'd to home in stable cond with baby in arms per W/C. Her mother and S.O. with pt and transport personel * Sae - Maile Moses RN - 03/24/2021 12:34 PM EDT Baby discharge papers Given and explained. Voiced understanding of same. * Nursing - Maile Moses RN - 03/24/2021 10:51 AM EDT Education completed. Discharge instructions given. Voiced understanding of same. * D/C Planning - Rosina Vergara Social Worker - 03/24/2021 9:32 AM EDT [facility] ref made. * Nursing - Maile Moses RN - 03/24/2021 8:31 AM EDT Assessment completed. Denies any needs or pain meds at this time. Boning well with baby. Mother andS.O. in room and supportive. Mother/Baby Care Video in room to view per request. Discussed plan fordischarge today. Voiced understanding of same. * Note - Elizabeth Lovett RN - 03/23/2021 10:45 AM EDT This note was copied from a baby's [...] LC paging encouraged for help as needed. * Nursing - Susan Olivares, DAVID - 03/22/2021 5:45 PM EDT Education videos taken to room, Pt and family instructed to watch. * Note - Pushpa Brannon RN - 03/22/2021 4:00 PM EDT IBCLC visits mother for initial assessment. Mother [...] Surgery no Breast feeding Assistance Device Lanolin * D/C Planning - Rosina Vergara, Health Plan Specialist - 03/22/2021 3:52 PM EDT Social Service OB Consult Eva Granados 2000 OB Social Work Consult Reason for Referral: CHANDA has hx of anx Interview Participants: [facility] Support System Father of Baby: Yes Family Support: Yes Marital Status: Single Patient Information Employment: yes Student: no Household Size: 3 Other Children in home: 0 [employer] Thread Winder / Family Physician: Dr Porras Problem List: Psychiatric History Community Agencies Involved: [facility] Assessment:: CHANDA has hx of anx. Reports that she gets nervous but is okay. MOB reports she has hx of dep but hasn't had it [id number]. PPD handout provided with verbal edu on sxs of PPD. MOB has late care per chart review. MOB reports she did not find out she was till late. Started going as soon as she found out she was . CHANDA tox screens on 03/21/2021 and 11/26/2020 wereneg on all panels. Has WiC, ins, car seat and crib. Has Joslyn Commskyty plan ins. Taking baby to Dr Porras. Breast feeding baby. Dad is Degnic Clark and baby will be named Lida Clark. No concerns identified. Referrals Planned/Recommended @ DC: (none) Social Christian Guzman * D/C Planning - Rosina Vergara Social Worker - 03/22/2021 3:09 PM EDT Images from the original note were not included. Rosina Vergara Social Worker IP Demo Coordinator D/C Planning Signed Note Time: 03/22/21 150 Creation Time: 03/22/21 150 Signed []Hide copied text []Hover for details 2:52pm attempted to complete consult MOB with will attempt later. * Nursing - Leah Graves RN - 03/22/2021 9:05 AM EDT IV saline locked. Pt up to void, pads changed. To room 2167 via wheelchair in good condition, RN provided updates. * Nursing - Leah Graves RN - 03/22/2021 7:05 AM EDT Recovery completed. Epidural removed. Patient assisted to bathroom, ambulates and voids without difficulty. CAROL provided and explained. Pain medication given. Patient assisted with breast feeding, awaiting breakfast, denies further needs. * L&D Delivery Note - Tatiana Lewis MD - 03/22/2021 5:10 AM EDT Vaginal Delivery Note Eva Roberta 2000 [id number] 20 y.o. at 40w0d gestation Delivering Project Technician: Tatiana Lewis Primary Project Technician: Tatiana Lewis Pre-Delivery Diagnosis: IUP at 40 [...] moving all extremities well. Tatiana Lewis 03/22/2021 * Nursing - Leah Belle RN - 03/22/2021 4:10 AM EDT Call placed to Dr. Lewis to let her know that pt is complete with membranes still intact. Informedher that pt is complete, comfortable, but has had a few late decels. Bolus in, pt turned, and oxygen applied at this time. Dr. Lewis states that she will be in shortly. * Nursing - Leah Belle RN - 03/21/2021 11:[address] Lewis with pt update. Discussed pt SVE 2/90/-3 and pt contraction pattern and FHR tracing. Orders received to give pt option to go home or to continue being monitored. If staying, start IV, draw labs and give 10 mg Nubain if needed for pain. * Sae - Leah Belle RN - 03/21/2021 9:25 PM EDT Call made to Dr. Lewis regarding pt arrival and status. Discussed pt's contraction pattern, FHR tracing, and SVE. Orders received to orally hydrate pt, monitor for 2 hours, recheck cervix after 2 hours and then call back with report. * Nursing - Leah Belle RN - 03/21/2021 8:50 PM EDT Pt presents to unit via wheelchair at 39w6d stating that she has been dianna since this morning that has worsened through the evening. Pt to room 2104. EFM monitors applied. SVE /-3. documented in this encounterCHRIST[facility] Hospital course Narrative* Nicole Rodarte DO - 03/24/2021 8:50 AM EDT Obstetrical Discharge Summary Eva Granados 2000 [id number] 03/21/2021 Delivering OB Clinician: Tatiana Lewis MD [...] home Nicole Rodarte 03/24/2021 documented in this encounterCHRIST[facility]06[facility] History of Present illness Narrative* Nicole Rodarte DO - 03/24/2021 8:47 AM EDT This note was generated using voice activated [...] 2. Encourage 3. Anticipate discharge home today * Tatiana Lewis MD - 03/23/2021 12:52 PM EDT PPD #1 s/p normal spontaneous vaginal delivery S: No complaints. Pain controlled, but sore. Tolerating regular diet. Ambulating. Voiding without difficulty. Lochia wnl. O: Vital signs reviewed and within normal limits Gen: NAD Abd: Soft, NT, fundus firm and at umbilicus Ext: NT A/P: PPD #1 1. Doing well 2. Routine care * Tatiana Lewis MD - 03/22/2021 10:01 AM EDT PPD #0 s/p normal spontaneous vaginal delivery S: No complaints. Pain controlled. Tolerating regular diet. Ambulating. Voiding without difficulty.Lochia wnl. O: Vital signs reviewed and within normal limits Gen: NAD Abd: Soft, NT, fundus firm and at umbilicus Ext: NT A/P: PPD #0 1. Doing well 2. Routine care documented in this encounterCHRISTUS [facility]06[facility] History and physical note* Tatiana Lewis MD - 03/22/2021 4:33 AM EDT This note was generated using voice activated [...] for : 37w US: vertex, EFW 3028g ([id number]) 42%ile, SUGAR 15.0cm, post gr3 placenta Late [...] +accelerations, intermittent early, late, and variable decelerations [place]: q 1-3 minutes VE: Complete/+2 station with artificial rupture performed for clear fluid * Nicole Rodarte DO - 03/19/2021 11:38 AM EDT Eva Roberta 2000 [id number] 20 y.o. at 40w1d with EDC of Estimated Date of Delivery: 03/22/21 who is being admitted for induction of labor. Her current obstetrical history is remarkable for: 37w US: vertex, EFW 3028g ([id number]) 42%ile, SUGAR 15.0cm, post gr3 placenta Late [...] cephalic FHTs: To be assessed on arrival [place]: To be assessed on arrival Cervix: Last in office Dilation: 1cm Effacement: 50% Station: -3 Damon score: 3 Labs GBS neg Rh pos Impression: 20 y.o. at 40w1d Induction of labor Late PNC at 23w Chlamydia at [facility] but 36w recheck neg GBS neg Rh pos Plan: 1. ATSO [place] 2. CEFM + [place] 3. Admission labs 4. Suspect some component of mild blood pressure elevations related to anxiety as happened at [facility] and when seeing a different provider last week. Will update preeclampsia labs on admission as a precautions. 5. Cervical ripening with cytotec, plan to follow with pitocin per protocol once Damon score is more favorable 6. Pain control PRN documented in this [facility]06-05-2021 Miscellaneous Notes* Nursing - Nadege Bruce RN - 03/06/2021 10:04 PM EDT Pt is discharged home undelivered, not in labor, no ROM. Teaching stressed good hydration and smallfrequent meals. She is discharged home with all belongings and instructions in stable condition with significant other and her mother per ambulation to a private motor vehicle. * Nursing - Nadege Bruce RN - 03/06/2021 9:37 PM EDT Phone report to Dr Alonso, re: pt's c/o, had intercourse, no ROM, 1cm/50%/high- no real change. Contractions have gone away to pt with a left tilt and po hydration. Her first BP was high, rest have been fine. Orders received to discharge pt home. * Nursing - Zulay Bahena RN - 03/06/2021 9:00 PM EDT Pt presents to unit via wheelchair with c/o ctx, unsure of start time. +FM, denies vaginal bleeding, ?leaking fluid, nitrazine neg, Fern collected. SVE /-3. To triage 2102 with monitors applied. documented in this encounterCHRIST[facility] Hospital Discharge instructions* Instructions* Nadege Bruce RN - 03/06/2021 Signs and Symptoms of Labor Drink a minimum of 8-10 large glasses of water every day, if you are hydrated you will be more comfortable and baby moves more. Eat small frequent meals for your comfort and for baby well being. Keepyour Doctor appointments and call the office or your doctor for questions or concerns. This is a guide for you about the signs of true labor. If you have any of these signs before 36 weeks of (nine months), please call your private physician. If you do not have a private physician call the [facility] right away at or . Contractions The [...] according to your Doctor s instructions. [facility]to [facility] is located at [facility]. Warning Signals Possible Complications in [...] movement (use kick count). documented in this [facility]06-01-2021 Miscellaneous Notes* Nursing - Tamiko Melo RN - 03/02/2021 2:42 AM EDT EFM discontinued, pt given s/s of labor instruction, pt states understanding. Pt dismissed in stable condition, not in active labor, accompanied ambulatory with SO. * Nursing - Tamiko Meol RN - 03/02/2021 2:[address] Alonso beeped, returns call, report given of Dr. Rodarte pt, g/p, edc, fhr reactive with movement, contx q 3 after being checked, sve is closed, nitrazine and fern negative, -gbs, pt has appt with Dr. Rodarte on March 04. Pt may be discharged. * Nursing - Tamiko Melo RN - 03/02/2021 1:21 AM EDT Pt arrives at 37 1/7 gestation pt [...] applied, pt states understanding. documented in this encounterCHRISTUS [facility]05[facility] Miscellaneous Notes* Sae - Jorge Moreira RN - 02/03/2021 11:00 PM EDT Patient provided with verbal and written discharge instructions, patient and s/o verbalizes understanding and denies any questions or concerns at this time, signed copy obtained. Patient ambulates off of unit in stable condition. * Jorge Wagner RN - 02/03/2021 10:[address] Alonso notified of patient arrival with c/o of lower abd pain that wraps around her sides thathas worsened since 1999 tonight rating the pain 7/10, pt denies vaginal LOF or bleeding, abd palpates soft, the rest of the assessment is neg, vitals WNL, urine dip is neg, no ctx noted since arrival, FHTs mod variability. Dr. Alonso orders patient may be discharged to home with reassurance of hydration, rest, and Tylenol and once reactive NST, RBO. * Jorge Wagner RN - 02/03/2021 9:47 PM EDT Patient arrives via wheelchair with c/o lower abd pain that wraps around side that has worsened since 1999 rating 7/10, movement present, denies vaginal LOF/bleeding, to triage room 2100 with monitors applied, education provided. documented in this encounterCHRIST[facility] Hospital Discharge instructions* Instructions* Jorge Moreira RN - 02/03/2021 Weeks 32 [...] Hydrocortisone. Ask your doctor about taking an [id number]-wnsbtuv stool softener. Consider Experts recommend that women breastfeed for 1 year or longer. Breast milk may help protect your child from some health problems. Breastfed babies are less likelythan formula-fed babies to: ? Get ear infections, [...] may help to think about your personal, orthodox, and family traditions. You get to decide if you will keep your son's penis natural or if he will be circumcised. If you decide that you would like to have your baby circumcised, talk with your doctor. You can share your concerns about pain. And you can discuss your preferences for anesthesia. Where can you learn more? Go to [email or web address].net/patientEd Enter X711 in the search box to learn more about Weeks 32 to 34 of Your : Care Instructions. Current as of: July 09, 2020 Content Version: 12.8 [employer]. Care instructions adapted under license by your healthcare professional. If you have questions about a medical condition or this instruction, always ask your healthcare professional. [employer] disclaims any warranty or liability for your use of this information. documented in this encounterPremier Health [facility] SystemEvaluation note* Diagnosis 36 weeks gestation of state, incidental Chlamydia trachomatis infection in mother during second trimester of documented in this encounter Formerly named [facility] SystemEvaluation note* Diagnosis (spontaneous vaginal delivery)- Primary Normal delivery Encounter for induction of labor Normal labor Chlamydia trachomatis infection in mother during second trimester of Late care affecting in second trimester documented in this encounter [facility] named [facility] SystemEvaluation note* Diagnosis Breast pain, left Mastodynia documented in this encounter [facility] named [facility] SystemEvaluation note* Diagnosis URI with cough and congestion documented in this encounter [facility] named [facility] SystemEvaluation note* Diagnosis Sore throat- Primary Acute pharyngitis documented in this encounter Former[facility] named [facility] SystemEvaluation noteNo assessment information available [facility] Work Phone: Evaluation note* Diagnosis Missed menses Positive urine test ([facility]) , unspecified gestational age ([facility]) Encounter for supervision of normal first in first trimester ([facility]) Nonintractable headache, unspecified chronicity pattern, unspecified headache type documented in this encounter [facility] HealthcareEvaluation note* Diagnosis 17 weeks gestation of ([facility]) Second trimester ([facility]) state, incidental Screening, , for anatomic survey ([facility]) Encounter for anatomic survey Exposure to STD Vaginal discharge Leukorrhea, not specified as infective Well woman exam with routine gynecological exam Routine gynecological examination documented in this encounter [facility]* Diagnosis 21 weeks gestation of ([facility]) Second trimester ([facility]) state, incidental Diabetes mellitus screening Screening for diabetes mellitus documented in this encounter [facility]* Diagnosis Second trimester ([facility]) state, incidental 25 weeks gestation of ([facility]) documented in this encounter [facility] HealthcareHistory of Present illness Narrative* Tatiana Alcaraz, CLASSROOM AIDE - 07/07/2025 2:00 PM EDT Reason for Appointment: Patient ID: Eva Granados is a 24 y.o. female who presents for Routine Visit Patient presents today for Return OB appointment. MEDICATIONS Current Outpatient Medications Medication Instructions acetaminophen-codeine (Tylenol w/ Codeine #3) 300-30 MG tablet 1 tablet, Every 4 hours PRN Vit-Fe Fumarate-FA ( Vitamins) 28-0.8 MG tablet [...] Constitutional: Appearance: Normal appearance. She is well-developed. Cardiovascular: Rate and Rhythm: Normal rate and [...] nursing note reviewed. Exam conducted with a math specialist present. Vitals: There is no height or weight on file to calculate BMI. BP: 120/80 Patient's last menstrual period was 04/14/2025. ASSESSMENT & PLAN ICD-10-CM 1. 21 weeks gestation of ([facility]) Z3A.21 POCT urinalysis dipstick manually resulted 2. Second trimester ([facility]) Z34.92 POCT urinalysis dipstick manually resulted 3. Diabetes mellitus screening Z13.1 CBC Glucose tolerance, 1 hour CBC Glucose tolerance, 1 hour Return OB: Patient presents today for a routine obstetrics appointment. Patient is currently 21w1d . Patient states she is doing well but has complaints of being tired due to current . Patient has verbalizes frequent movement. labor precautions was discussed/given and patient was instructed to perform kick counts three times a day. Orders Placed This Encounter Procedures CBC Glucose tolerance, 1 hour POCT urinalysis dipstick manually resulted Follow Up: Patient is to return to office in 4 week for routine OB appointment. Documented by Tatiana Alcaraz NP on behalf of: Tatiana Alcaraz NP documented in this encounterUniversity Hospitalital Discharge instructions* Instructions* Tamiko Melo RN - [...] Call according to your Doctor s instructions. [facility]. Warning Signals Possible Complications in [...] movement (use kick count). documented in this encounterB[facility]plespital Discharge instructions* Instructions* Maile Moses RN - [...] eating high-fiber foods. Ask your doctor about lune-vzg-cgamigz stool softeners. Cleanse yourself with a gentle [...] days after delivery. Plan for child welfare worker if you have other children. Stay [...] Where can you learn more? Go to https://www.[employer].net/patientEd Enter A461 in the search box to learn more about After Your Delivery (the Period): CareInstructions. Current as of: July 09, 2020 Content Version: 12.9 3314-4197 [employer]. Care instructions adapted under license by your healthcare professional. If you have questions about a medical condition or this instruction, always ask your healthcare professional. [employer] disclaims any warranty or liability for your use of this information. * Attachments The following attachments cannot be sent through Care Everywhere. * ([place] Islander) documented [facility]Gen[facility] Discharge instructions* Attachments The following attachments cannot be sent through Care Everywhere. * Sore Throat ([place] Islander) documented in this encounterFormerly named [facility] SystemReason for referral (narrative)* Procedure Authorization (Routine) - ClosedSpecialtyDiagnoses / ProceduresReferred By ContactReferred To Contact Diagnoses Breast pain, left Procedures US Breast Left Limited Marianna Abbasi APRN SETTER HELPER [address] [place] [address] [employer] [address] [phone] Referral IDStatusReasonStart DateExpiration DateVisits RequestedVisits [id number]/21/20211/21/202311 [facility] CenterReason for visit Narrative* Procedure Authorization (Routine) - ClosedSpecialtyDiagnoses / ProceduresReferred By ContactReferred To Contact Diagnoses Breast pain, left Procedures US Breast Left Limited Marianna Abbasi APRN SETTER HELPER [address] [place] [address] [employer] [address] [phone] Referral IDStatusReasonStart DateExpiration DateVisits RequestedVisits [id number]/21/20211/21/202311 Lorraine Carista [employer] [facility] Reason for Referral StatusReasonSpecialtyDiagnoses / ProceduresReferred By ContactReferred To ContactOpenDental Electroencephalographic Technician / Dentistry Diagnoses Pain, dental Jaw swelling Aliya Cao, DO [address] [place] [address] [facility] [address] [place] [address] StatusReasonSpecialtyDiagnoses / ProceduresReferred By ContactReferred To ContactOpenFamily Medicine Diagnoses Pain, dental Jaw swelling Aliya Cao, DO [address] [place] [address] [facility] [address] [place] [address] Discharge Instructions * Instructions* Aliya Cao DO - 08/14/2020 No driving or operating heavy machinery while taking norco - no extra tylenol * Attachments The following attachments cannot be sent through Care Everywhere. * Tooth and Gum Pain ([place] Islander) documented in this encounter Assessments Diagnosis Pain, [...] No Advanced Directives Records FoundDocuments on File TypeDate RecordedPatient RepresentativeExplanationAdvance Directives and Living WillPower of AttorneyTypeDate RecordedPatient RepresentativeExplanationAdvance Directives and Living WillPower of AttorneyCode StatusDate ActivatedDate InactivatedCommentsFull Code02/03/2021 10:11 PMCode StatusDate ActivatedDate InactivatedCommentsFull Code02/03/2021 10:11 PM02/04/2021 5:02 AMCode StatusDate ActivatedDate InactivatedCommentsFull Code03/02/2021 1:46 AMFull Code02/03/2021 10:11 PM02/04/2021 5:02 AMCode StatusDate ActivatedDate InactivatedCommentsFull Code03/06/2021 9:45 PMFull Code03/06/2021 9:01 PM03/06/2021 9:45 PMFull Code03/02/2021 1:46 AM03/02/2021 9:03 AMCode StatusDate ActivatedDate InactivatedCommentsFull Code03/22/2021 5:16 AMFull Code03/22/2021 1:13 AM03/22/2021 5:16 AMFull Code 03/21/2021 9:27 PM03/22/2021 1:13 AMFull Code03/19/2021 11:50 AM03/21/2021 9:27 PM Full Code03/06/2021 9:45 PM03/07/2021 4:11 AMCode StatusDate ActivatedDate InactivatedCommentsFull Code03/22/2021 5:16 AM03/24/2021 7:51 PMTypeDate Recorded Patient RepresentativeExplanationAdvance Directives and Living WillPower of AttorneyDNR DocumentationCode StatusDate ActivatedDate InactivatedCommentsFull Code03/22/2021 5:16 AM03/24/2021 7:51 PMFull Code03/22/2021 1:13 AM03/22/2021 5:16 AMFull Code03/21/2021 9:27 PM03/22/2021 1:13 AMFull Code03/19/2021 11:50 AM 03/21/2021 9:27 PMFull Code03/06/2021 9:45 PM03/07/2021 4:11 AMTypeDate Recorded Patient RepresentativeExplanationAdvance Directives and Living WillPower of AttorneyDNR Documentation Summary Purpose Family History No Family History Records FoundNo Family History Records FoundNo Family History Records Found Additional Source Comments Reason for Visit (unrecogniz ed section and content) ReasonCommentsDental Painleft sideReasonCommentsAbdominal Painconstant pain since 1999ReasonCommentsRupture of Membranesfeels like she is losing her mucas plug for 3 days, and is now feeling leakingAbdominal Crampingcramping for a week ReasonCommentsContractionsq 3-5 minutesRupture of Membranesthinks she is leaking somethingReasonCommentsAbdominal Pain39.6StatusReasonSpecialtyDiagnoses / ProceduresReferred By ContactReferred To Contact Diagnoses Uterine contractions during Irregular contractions cytotec iol Procedures INDUCTION CYTOTEC ReasonCommentsOtherThroat tightnessReasonCommentsAmenorrheaReasonCommentsRoutine VisitWell Women VisitSTI ScreeningReasonCommentsRoutine Visit Aliya Cao DO - 08/14/2020 8:59 AM EST ED Notes (unrecognized secti on and content) ED Diagnosis and Summary 1. Pain, dental 2. Jaw swelling ED Summary We will treat with antibiotics, NSAIDs, and a small supply of narcotics with referral for a primaryprovider and dentistry. She is comfortable with discharge home and follow-up. History Chief Complaint Patient presents with Dental Pain left side Patient's medications and allergies were reviewed and updated as appropriate. Patient's medications, allergies, past medical, surgical, social and family histories were reviewedand updated as appropriate. I have reviewed and [...] left mandibular molar region with localized left mandibularswelling with no overlying erythema or fluctuance. No [...] Decision Making Aliya Cao DO 08/14/20 0919 * Juliann White RN - 08/14/2020 6:49 AM EST Left sided dental pain for the past couple of months. Increased over the past three days. Pt reports that the pain 07/11 described as hurts really bad. Pt reports that she thinks it is her wisdom teeth. Pt reports difficulty sleeping. Pt sitting in chair alert and oriented. Pt appears uncomfortable, respirations even unlabored. Skinwarm pink and dry. documented in this encounter Scheduled Active and Recently Administ ered Medications (unrecognized section and content) Medication Order03/22//// lactated ringers bolus solution 1,000 mL (COMPLETED) 1,000 mL, Intravenous, Administer over 1.01 Hours, On Mon03/22/21 at 0030, ONCE, 1 dose * 0054 (New Bag - Provider: Leah Belle RN) lactated ringers bolus solution 1,000 mL (COMPLETED) 1,000 mL, Intravenous, Administer over 31 Minutes, On Mon03/22/21 at 0145, ONCE, 1 dose, (in preparation for regional anesthesia). Cannot be run through an Alaris pump at this rate. Please run off the pump (use bolus from bag action)., Pre-Delivery * 0425 (New Bag - Provider: Leah Belle RN) multivitamin 27-0.8 MG tablet 1 tablet 1 tablet, Oral, DAILY, First dose on Mon03/22/21 at 0900, Until Discontinued * 0900 (Due) * 0941 (Given - Provider: Ella Duarte RN) * 0824 (Given - Provider: Maile Moses RN) TdaP qtlubul-meomvjfajr-zkzxaizkc pertussis (BOOSTRIX) injection 0.5 mL 0.5 mL, Intramuscular, PRIOR TO DISCHARGE, 1 dose, On Mon03/22/21 at 0600, ONLY give if patient hasnot received during this . * 0900 (Due - Provider: Leah Graves, DAVID) Medication Order03/22/// lactated ringers infusion Intravenous, at 125 mL/hr, CONTINUOUS, Starting on Mon03/22/21 at 0030, Until Discontinued * 0135 (New Bag - Provider: Leah Belle RN) * 0457 (Stopped - Provider: Leah Graves, DAVID) oxytocin 20 units in 1000mL LR - post 125-1,000 mL/hr, Intravenous, Starting on Mon03/22/21 at 1715, CONTINUOUS, Until Discontinued, Run wide open until bleeding controlled, then continue at 125mL/hr. May discontinue or saline lock at nurse's discretion * 1715 (Due) Medication Order03/22/// acetaminophen (TYLENOL) tablet 1,000 mg 1,000 mg, Oral, EVERY 6 HOURS PRN, Mild Pain, Fever, Headaches, Starting on Mon03/22/21 at 0514, Until Discontinued, Maximum dose of acetaminophen is 4000 mg from all sources in 24 hours. * 0228 (Given - Provider: Janet Lewis RN) aluminum-magnesium hydroxide 200-200 MG/5ML suspension 30 mL 30 mL, Oral, EVERY 6 HOURS PRN, Cramping, Indigestion, Starting on Mon03/22/21 at 0514, Until Discontinued benzocaine-menthol (DERMOPLAST) 20-0.5 % topical spray Topical, PRN, may leave @@ bedside, Starting on Mon03/22/21 at 0514, Until Discontinued, Apply topically to perineum * 0650 (Given - Provider: Leah Belle RN) * 0710 (Given - Provider: Leah Graves, DAVID) * 1044 (Due) diphenhydrAMINE (BENADRYL) capsule 25 mg 25 mg, Oral, EVERY 6 HOURS PRN, Itching, Starting on Mon03/22/21 at 0514, Until Discontinued docusate sodium (COLACE) capsule 100 mg 100 mg, Oral, 2 TIMES DAILY PRN, Constipation, Starting on Mon03/22/21 at 0514, Until Discontinued,Until bowel movement. * 2213 (Due) docusate sodium (COLACE) capsule 100 mg 100 mg, Oral, 2 TIMES DAILY PRN, Constipation, Starting on Mon03/22/21 at 0514, Until Discontinued,Caution: Do not crush or chew due to taste. Administration via tube should be acceptable. * 2216 (Given - Provider: Mehreen Bahena, DAVID) famotidine (PEPCID) tablet 20 mg 20 mg, Oral, 2 TIMES DAILY PRN, Heartburn, Indigestion, Starting on Mon03/22/21 at 0514, Until Discontinued Hydrocort-Pramoxine (Perianal) (ANALPRAM-HC) rectal cream Perineal, PRN, Hemorrhoids, Starting on Mon03/22/21 at 0514, Until Discontinued * 0650 (Given - Provider: Leah Belle, DAVID) Hydrocortisone (Perianal) 2.5 % rectal cream Perineal, PRN, Hemorrhoids, may leave @@ bedside, Starting on Mon03/22/21 at 0514, Until Discontinued, Apply topically to perineum * 0650 (Given - Provider: Leah Belle RN) * 0710 (Given - Provider: Leah Graves, DAVID) ibuprofen (ADVIL,MOTRIN) tablet 800 mg 800 mg, Oral, EVERY 8 HOURS PRN, Mild Pain, Moderate Pain, Fever, Starting on Mon03/22/21 at 0514, Until Discontinued * 0710 (Given - Provider: Leah Graves, DAVID) * 1613 (Given - Provider: Susan Olivares, DAVID) * 1243 (Given - Provider: Ella Duarte, DAVID) * 2358 (Given - Provider: Mehreen Bahena, DAVID) Lanolin [...] Pain, Starting on Mon03/22/21 at 0514, Until Discontinued,Caution: This medication looks and/or sounds like another medication. oxytocin (PITOCIN) 10 units in LR 500 mL infusion - (COMPLETED) 10 Units (500 mL), Intravenous, Administer over 4 Hours, Starting on Mon03/23/21 at 0000, after delivery of the placenta, ONCE PRN, 1 dose, Until Mon03/23/21 at 2359 * 0529 (New Bag - Provider: Leah Belle, RN) * 0905 (Infusion Complete - Provider: Leah Graves, RN) simethicone (MYLICON) chewable tablet 80 mg [...] Care Provider Active Start: December 27, 2024 Abhi Navarroending ProviderActiveStart: December 27, 2024 Team Status: Inactive Member Role Status Dates Zoila Manzo DO Attending Provider Active Sta rt: January 15, 2025 End: January 15, 2025Team MemberRelationshipSpecialtyStart DateEnd Date Pcp, None [address] [place] [address] PCP - Mcmarly17/13/20 INFORMATION SOURCE (unrecogn ized section and content) DATE CREATED AUTHOR 03/13/2023 [employer] DATE CREATED AUTHOR AUTHOR'S ORGANIZ ATION 04/22/2025 [facility] DATE CREATED AUTHOR AUTHOR'S ORGANIZ ATION 08/05/2025 [facility] Goals (unrecognized section and content) Goals may [...] BE BASED ON THE PRIMARY CLINICAL RECORDS. [facility] [employer] [facility]. provides no warranty or guarantee of the accuracy or completeness of information in this document.
[2025-08-25 11:48] LABS: Hematocrit 32.7 % (36.0-48.0); Hemoglobin 11.1 g/dL (12.0-16.0); Immature Granulocytes Abs Auto 0.05 10^3/uL (0.00-0.03); Immature Granulocytes Pct Auto 0.6 % (0.0-0.5); Lymphocytes Absolute Auto 1.3 10^3/uL (1.2-3.8); Mean Corpuscular HGB Conc 33.9 g/dL (29.9-35.2); Mean Corpuscular Hemoglobin 30.9 pg (26.7-34.0); Mean Corpuscular Volume 91.1 fL (81.0-99.0); Platelet Count 224 10^3/uL (150-450); Red Blood Count 3.59 10^6/uL (4.20-5.40); White Blood Count 8.6 10^3/uL (4.0-11.0)
[2025-08-25 12:01] LABS: Glucose 1 Hour 107 mg/dL (<130)
== END 2025-08-25 10:32 | disposition home or self-care (01) ==
PROVIDERS: PCP Nurse Practitioner Family; Visit Provider Nurse Practitioner Family
DX: Z13.1 Encounter for screening for diabetes mellitus (principal)
CPT/HCPCS: 36415; 82950; 85025

== ENCOUNTER 2025-09-09 13:51 | Emergency (ER) | payer OTHER, SELFPAY ==
[2025-09-09 13:55] VITALS: BP 131/72; PULSE 103; TEMP 36.5; O2SAT 100; BMI 31.5
--- NOTE | 2025-09-09 14:06 | ED_ITS ---
HPI HPI - General Adult General Chief complaint: Nausea/Vomiting/Diarrhea Stated complaint: NAUSEA,VOMITING, DIARRHEA - 30 WEEKS PREG Time Seen by Provider: 09/09/25 13:55 Source: patient Mode of arrival: walk-in Limitations: no limitations History of Present Illness HPI narrative: Patient is a 25-year-old female G3, P2 who is 30 weeks with complaints of nausea, vomiting, and diarrhea that started at about 6 PM yesterday. She states the nausea and vomiting are definitely worse, she has vomited approximately 30 times. She had about 6 bouts of diarrhea. Her significant other at bedside has had similar symptoms. She denies fever, night sweats, or chills. She denies any vaginal bleeding, discharge, or urinary symptoms. She has been having Rosendo Humphrey contractions since about 28 weeks and has had no change in frequency of these. She is following with Dr. Robertson and just saw him yesterday but her symptoms were very mild at the appointment. She came straight from work to the emergency department today. Related Data Home Medications ?Medication ?Instructions ?Recorded ?Confirmed magnesium oxide 400 mg (241.3 mg 400 mg PO DAILY 05/1205/12/25 magnesium) tablet vit no.95-ferrous 1 tab PO DAILY 05/12/2508/26 fumarate 28 mg-folic acid 800 mcg tablet () Previous Rx's ?Medication ?Instructions ?Recorded ondansetron 4 mg disintegrating 4 mg PO Q6H PRN nausea and 09/09/25 tablet vomiting #14 tabs Allergies Allergy/AdvReac Type Severity Reaction Status Date / Time No Known Drug Allergies Allergy Verified 09/09/25 13:55 Opioid HPI Opioid Management Most Recent Opioid Data: Last Pain Scale 7 Today, 13:55 Ur Phencyclidine Scrn, (NEGATIVE) Negative , 13:28 Review of Systems ROS Status of ROS 10 or more systems reviewed and unremark able except as noted in history and below [facility] Medical History (Updated 09/09/25 @ 16:05 by JOE Mauro) Pierced eyebrow infection ?S01.139A - Puncture wound without foreign body of unspecified eyelid and periocular area, initial encounter (ICD-10) ?L08.9 - Local infection of the skin and subcutaneous tissue, unspecified (ICD-10) Impetigo ?L01.00 - Impetigo, unspecified (ICD-10) Mood disorder ?F39 - Unspecified mood [affective] disorder (ICD-10) Situational mixed anxiety and depressive disorder ?F43.23 - Adjustment disorder with mixed anxiety and depressed mood (ICD-10) Abdominal pain ?R10.9 - Unspecified abdominal pain (ICD-10) Low iron ?E61.1 - Iron deficiency (ICD-10) Anxiety ?F41.9 - Anxiety disorder, unspecified (ICD-10) Menorrhagia ?N92.0 - Excessive and frequent menstruation with regular cycle (ICD-10) Dysmenorrhea ?N94.6 - Dysmenorrhea, unspecified (ICD-10) Seasonal allergies ?J30.2 - Other seasonal allergic rhinitis (ICD-10) Family History (Updated 01/23/25 @ 09:58 by Lexi Alcaraz) Other Family history of Alzheimer's disease Family history of breast cancer Family history of cancer Family history of diabetes mellitus Family history of heart disease Social History (Updated 01/24/25 @ 07:28 by Skye Dunn) Within the past year, how often did you have a drink containing alcohol: monthly or less Do you use any of these nicotine containing products: vaping products Non-prescribed substance use: denies use 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 No rash. Head: Normocephalic, atraumatic. Neck: Supple, non-tender. Eye: Pupils are equal, round and EOMI. No scleral icterus. Ears, Nose, Mouth, and Throat: No nasal mucosal hypertrophy. Oral mucosa is moist, no posterior oropharynx erythema, uvula is mid-line Cardiovascular: Regular Rate and Rhythm without murmur, gallop or rub. Respiratory: No accessory muscle use or respiratory distress. Lungs are clear to auscultation, no wheezing, rales or rhonchi Chest Wall: no tenderness Back: No midline thoracic or lumbar vertebral tenderness. Musculoskeletal: Full ROM of all extremities, no calf or popliteal tenderness GI: Abdomen is soft, gravid, non tender to palpation. No masses appreciated. No rebound, guarding, or rigidity noted. Neurological: A&O x4. No cranial nerve dysfunction observed. No truncal ataxia. Moves all extremities. Sensation intact. Psychiatric: Cooperative and interactive. Normal mood and affect. Constitutional Vital Signs, click to edit/add: Last Vital Signs Temp 97.7 F 09/09/25 13:55 Pulse 83 09/09/25 15:58 Resp 16 09/09/25 15:58 BP 111/65 09/09/25 15:58 Pulse Ox 100 09/09/25 15:58 O2 Del Method Room Air 09/09/25 15:58 Documenting provider has reviewed patient's vital signs: yes Course Vital Signs Vital signs: Vital Signs Temperature 97.7 F 09/09/25 13:55 Pulse Rate 103 H 09/09/25 13:55 Respiratory Rate 18 09/09/25 13:55 Blood Pressure 131/72 09/09/25 13:55 Pulse Oximetry 100 09/09/25 13:55 Oxygen Delivery Method Room Air 09/09/25 13:55 Temperature 97.7 F 09/09/25 13:55 Pulse Rate 83 09/09/25 15:58 Respiratory Rate 16 09/09/25 15:58 Blood Pressure 111/65 09/09/25 15:58 Pulse Oximetry 100 09/09/25 15:58 Oxygen Delivery Method Room Air 09/09/25 15:58 Medical Decision Making [facility] Narrative Medical decision making narrative: 25-year-old at 30 weeks gestation presents with acute onset nausea, vomiting, and diarrhea beginning yesterday evening, with approximately 30 episodes of emesis and 6 episodes of diarrhea. Symptoms are consistent with a gastrointestinal illness, especially given her significant other has identical symptoms. She denies fever, abdominal pain, vaginal bleeding, loss of fluid, or change in her baseline [place] Humphrey contractions. heart tones reassuring at 135 bpm. Main concern on arrival is dehydration and electrolyte imbalance due to persistent vomiting. Differential includes viral gastroenteritis (most likely), foodborne illness, dehydration-related uterine irritability, and less likely etiologies such as appendicitis, cholecystitis, pancreatitis, UTI, or -related conditions including preeclampsia/HELLP or labor, though history and exam do not currently support these. IV access established and 1L normal saline initiated; 4 mg IV ondansetron given for symptom control. Labs ordered (CBC, CMP, magnesium, lipase, UA) to assess for dehydration, electrolyte abnormalities, and rule out alternative pathology. Labs demonstrated mild hemoconcentration (Hgb 12.0), mild hyponatremia (Na 133), hypokalemia (K 3.0), and hypomagnesemia (Mg 1.5), consistent with dehydration from gastrointestinal losses. I discussed results with patient and plan for fluid and electrolyte replacement. Patient received 2 L IV normal saline, 20 mEq IV potassium, and 400 mg oral magnesium. She tolerated medications and a full glass of water, and her nausea is now controlled after Zofran. On reevaluation, patient comfortable and sleeping, easily arousable awake. No vomiting or diarrhea during her ED course. Differential includes viral gastroenteritis (most likely), foodborne illness, and less likely - related complications such as labor, HELLP, or cholecystitis; current clinical and laboratory data do not support these alternative etiologies. Patient is clinically improving, able to tolerate oral intake, and has stable vital signs. She will be discharged with oral antiemetic therapy (Zofran 4mg ODT) and instructions for hydration, movement monitoring, and follow-up with her OB provider. Differential Diagnosis Differential Diagnosis: Viral gastroenteritis, dehydration, foodborne illness Lab Data Lab results reviewed: Yes I reviewed the patient's lab results Labs: Lab Results 09/09/25 09/09/25 09/09/25 Range/Units 14:06 14:13 14:14 WBC 9.6 (4.0-11.0) 10^3/uL RBC 3.89 L (4.20-5.40) 10^6/uL Hgb 12.0 (12.0-16.0) g/dL Hct 34.6 L (36.0-48.0) % MCV 88.9 (81.0-99.0) fL MCH 30.8 (26.7-34.0) pg MCHC 34.7 (29.9-35.2) g/dL RDW 12.6 (11.0-15.0) % Plt Count 174 (150-450) 10^3/uL MPV 10.3 (9.5-13.5) fL Seg Neuts % (Manual) 86.0 H (43.0-75.0) Lymphocytes % (Manual) 8.0 L (20.5-60.0) % Monocytes % (Manual) 6.0 (1.7-12.0) % Eosinophils % (Manual) 0.0 L (0.9-7.0) % Basophils % (Manual) 0.0 L (0.2-2.0) % Neutrophils # (Manual) 8.25 H (1.4-6.5) 10^3/uL Lymphocytes # (Manual) 0.76 L (1.20-3.80) 10^3/uL Monocytes # (Manual) 0.57 (0.30-0.80) 10^3/uL Eosinophils # (Manual) 0.00 (0.00-0.70) 10^3/uL Basophils # (Manual) 0.00 (0.00-0.10) 10^3/uL Sodium 133 L (136-145) mmol/L Potassium 3.0 L (3.5-5.1) mmol/L Chloride 101 (98-107) mmol/L Carbon Dioxide 25.1 (21.0-32.0) mmol/L Anion Gap 9.9 BUN 7.0 (7.0-18.0) mg/dL Creatinine 0.45 L (0.55-1.02) mg/dL Est GFR ( Amer) >60 (>=60 mL/min/1.73m^2) Est GFR (Non-Af Amer) >60 (>=60 mL/min/1.73m^2) BUN/Creatinine Ratio 15.6 Glucose 95 (74-106) mg/dL Calcium 8.6 (8.5-10.1) mg/dL Magnesium 1.5 L (1.8-2.4) mg/dL Total Bilirubin 2.2 H (0.2-1.0) mg/dL AST 31 (15-37) U/L ALT 37 (14-59) U/L Alkaline Phosphatase 112 (46-116) U/L Total Protein 6.5 (6.4-8.2) g/dL Albumin 2.8 L (3.4-5.0) g/dL Globulin 3.7 g/dL Albumin/Globulin Ratio 0.8 Lipase 27.0 (16.0-77.0) U/L Urine Color [place] A (YELLOW) Urine Clarity Sl cloudy (CLEAR) Urine pH 6.0 (5.0-9.0) Ur Specific [place] 1.025 (1.005-1.025) Urine Protein Trace (NEG/TRACE) mg/dL Urine Glucose (UA) Negative (NEGATIVE) mg/dL Urine Ketones >=80 A (NEGATIVE) mg/dL Urine Occult Blood Negative (NEGATIVE) Urine Nitrite Negative (NEGATIVE) Urine Bilirubin Small A (NEGATIVE) Urine Urobilinogen 1.0 (0.2-1.0) EU/dL Ur Leukocyte Esterase Negative (NEGATIVE) Discharge Plan Discharge Chief Complaint: Nausea/Vomiting/Diarrhea Clinical Impression: Gastroenteritis, Dehydration during , Hypokalemia, Hypomagnesemia Patient Disposition: Home, Self-Care Time of Disposition Decision: 16:05 Condition: Good Mode of Transportation: Private Vehicle Prescriptions / Home Meds: New ondansetron 4 mg tablet,disintegrating 4 mg PO Q6H PRN (Reason: nausea and vomiting) Qty: 14 0RF No Action magnesium oxide 400 mg (241.3 mg magnesium) tablet 400 mg PO DAILY PNV no.95-ferrous fumarate-FA [] 28 mg iron- 800 mcg tablet 1 tab PO DAILY Print Language: Panamanian Instructions: Acute Nausea and Vomiting (ED) Additional Instructions: Hydration & Diet * Drink plenty of fluids: water, oral rehydration solutions, broths * Eat small, bland meals (toast, rice, bananas, applesauce) * Avoid caffeine, alcohol, greasy or spicy foods until fully recovered Monitoring Symptoms Call your healthcare provider or go to the ER immediately if you experience: * Persistent vomiting or inability to tolerate fluids * Signs of dehydration (dizziness, fainting, very little urine) * Fever, chills, or worsening abdominal pain * Vaginal bleeding, fluid leakage, or contractions that become regular/painful * Decreased movement Monitoring * Count your baby?s movements daily * Contact your OB immediately if you notice decreased activity Follow-Up * Follow up with Dr. Robertson, call tomorrow to update them on your status and see if they need to see you sooner than scheduled appointment. Referrals: Robi Robertson DO [Physician, AUTOMATIC PAD MAKING MACHINE OPERATOR] - 09/22/25 Referral Note: Call tomorrow to give them an update and see if they need to see you sooner than scheduled appointment SANTINO CUEVA [Primary Care Provider, Family Practice] - 1 week Discharge Date/Time: 09/09/25 16:17
[2025-09-09] MEDS: 0.9 % SODIUM CHLORIDE 1,000 ML 1000 ML IV ×2 (14:18→15:15)
--- OUTSIDE RECORDS SUMMARY | 2025-09-09 14:22 | XMS_ITS | CCD ---
Author Organization [facility] Care Team Providers Care Donor Relations Associate Name Role Phone Pcp, None Primary Care [...] Attending Provider Zoila Manzo DO Attending Provider [phone] Zoila Manzo Attending Unavailable Zoila Manzo Admitting Unavailable Octavio Martinez Attending Unavailab le Octavio Martinez Admitting Unavailab le NON STAFF Primary Care Unavailable TATIANA ALCARAZ Attending Unavailable TATIANA ALCARAZ Attending Unavailable ROBI ROBERTSON Attending Unavailable Allergies Allergy ClassificationReported Allergen(s)Allergy TypeDate of OnsetReaction(s) Facility (16 sources)OtherPropensity to adverse xsofrweow01-23-7412DW[facility] Medications Current Medications MedicationDrug Class(es)DatesSig (Normalized)Sig (Original)acetaminophen 500 mg oral tablet (7 sources)Start: 54-83-3200ynkc 2 tablets by mouth every six hours as needed acetaminophen (TYLENOL) 500 MG tablet Take 2 tablets by mouth every 6 hours as needed. 30 tablet 0 03/24/2021 ActiveStart: 64-68-7428nhalpftxwvonk (TYLENOL) tablet 1,000 mgacetaminophen 325 mg / HYDROcodone bitartrate 5 mg oral tablet (2 sources)Opioid AgonistStart: 40-59-8363kcbk 1 tablet by mouth every six hours as needed for painhydrocodone-acetaminophen (NORCO) 5-325 MG Indications: Pain, dental , Jaw swelling Take 1 tablet by mouth every 6 hours as needed for Pain. 8 tablet 0 08/14/2020 ActiveStart: 08-14-2020 End: 55-94-5563znfkedvtprt-acetaminophen (NORCO) 5-325 MG home pack 1 packet aluminum hydroxide 40 mg/ml / magnesium hydroxide 40 mg/ml oral suspension (1 source)Start: 78-92-4306xxvqhgus-magnesium hydroxide 200-200 MG/5ML suspension 30 mLbenzocaine 200 mg/ml / menthol 5 mg/ml topical spray (1 source)Standardized Chemical AllergenStart: 53-04-4242xioaabfbrz-menthol (DERMOPLAST) 20-0.5 % topical spraybrompheniramine maleate 0.4 mg/ml / dextromethorphan hydrobromide 2 mg/ml / pseudoephedrine hydrochloride 6 mg/ml oral solution (3 sources)alpha-Adrenergic Agonist, Uncompetitive J-clhlkk-A-aspartate Receptor Antagonist, Sigma-1 AgonistStart: 38-98-4715neaw 10 mL by mouth four times daily as needed for hbcknsokdmwgpyxawtsn-urtxoqciopehfdz-WM (BROMFED DM) 30-2-10 MG/5ML syrup Indications: URI with cough and congestion Take 10 mLs by mouth 4 times daily as needed for Cough or Congestion. 120 mL 0 02/04/2022 Active diphenhydrAMINE hydrochloride 25 mg oral capsule (1 source)Histamine-1 Receptor AntagonistStart: 06-53-5155nqhhkyygexVFUBM (BENADRYL) capsule 25 mgdocusate sodium 100 mg oral capsule (8 sources)Start: 98-33-6640ejio 1 capsule by mouth twice daily as needed for constipationdocusate sodium 100 MG CAPS Take 100 mg by mouth 2 times daily as needed for Constipation. 30 capsule 1 03/24/2021 Activefamotidine 20 mg oral tablet (1 source)Histamine-2 Receptor AntagonistStart: 69-88-3145xpyivjhfma (PEPCID) tablet 20 mghydrocortisone 25 mg/ml topical cream (1 source)CorticosteroidStart: 49-51-0780Wrfjribrziyskp (Perianal) 2.5 % rectal creamhydrocortisone acetate 25 mg/ml / pramoxine hydrochloride 10 mg/ml rectal cream (1 source)CorticosteroidStart: 68-48-3194Kzekmeehj-Pramoxine (Perianal) (ANALPRAM-HC) rectal creamibuprofen 800 mg oral tablet (7 sources)Nonsteroidal Anti-inflammatory DrugStart: 12-89-7319nspm 1 tablet by mouth every eight hours as neededibuprofen (ADVIL,MOTRIN) 800 MG tablet Take 1 tablet by mouth every 8 hours as needed. 30 tablet 1 03/24/2021 Activelanolin 0.5 mg/mg topical ointment (1 source)Start: 32-75-4619Izlfbar Hydrous ointmentmagnesium hydroxide 240 mg/ml oral suspension (1 source)Start: 72-31-1473Ztpcfpdyr Hydroxide (MOM) suspension (CONC) 10 mL magnesium oxide 400 mg oral tablet (4 sources)Start: 05-08-2025 End: 02-60-9232kfeu 1 tablet by mouth once dailymagnesium oxide (Mag-Ox) 400 MG tablet Indications: Nonintractable headache, unspecified chronicitypattern, unspecified headache type Take 1 tablet (400 mg) by mouth Daily 30 tablet 11 05/08/2025 06/09/2025 Activenaproxen 500 mg oral tablet (2 sources)Nonsteroidal Anti-inflammatory DrugStart: 80-02-8076hywh 1 tablet by mouth twice daily as needed for painnaproxen (NAPROSYN) 500 MG tablet Take 1 tablet by mouth 2 times daily as needed for Pain. 15 tablet 0 08/14/2020 Active Start: 08-14-2020 End: 05-98-9721eamtabbw (NAPROSYN) tablet 500 mg2 ml ondansetron 2 mg/ml injection (9 sources)Serotonin-3 Receptor AntagonistStart: 36-07-3102srsdqwovfhq hcl (ZOFRAN) injection 4 mgStart: 12-21-2020 End: 24-10-8471Dgwoxhfmmow (ZOFRAN-ODT) disintegrating tablet 4 mgoxyCODONE hydrochloride 5 mg oral tablet (1 source)Opioid AgonistStart: 30-92-8172wxeNSFSSX (ROXICODONE) immediate release tablet 5-10 mgoxytocin 20 units in 1000mL LR - post (1 source)Start: 57-82-2375agybbnop 20 units in 1000mL LR - post penicillin v potassium 500 mg oral tablet (2 sources)Start: 49-92-9648vico 1 tablet by mouth four times dailypenicillin v potassium (VEETID) 500 MG tablet Take 1 tablet by mouth 4 times daily. 39 tablet 0 08/14/2020 ActiveStart: 08-14-2020 End: 33-96-1712pquajlttvh v potassium (VEETID) tablet 500 mgprenatal multivitamin 27-0.8 MG tablet 1 tablet (1 source)Start: 08-33-3507vpuqaljz multivitamin 27-0.8 MG tablet 1 tablet Vit-Fe Fumarate-FA ( VITAMIN PLUS LOW IRON) 27-1 MG TABS (14 sources)Start: 03-50-3037jimb 1 tablet by mouth once dailyPrenatal Vit-Fe Fumarate-FA ( VITAMIN PLUS LOW IRON) 27-1 MG TABS Take 1 tablet by mouth daily. 30 tablet 0 11/19/2020 ActivePrenatal Vit-Fe Fumarate-FA ( Vitamins) 28-0.8 MG tablet (16 sources)Start: 05-08-2025 End: 79-74-8177srjo 1 tablet by mouth once dailyPrenatal Vit-Fe Fumarate-FA ( Vitamins) 28-0.8 MG tablet Indications: Positive urine test ([facility]) Take 1 tablet by mouth Daily 30 tablet 11 05/08/2025 05/08/2026 Active simethicone 80 mg chewable tablet (1 source)Start: 25-60-2100alhcpfbiblm (MYLICON) chewable tablet 80 mgzolpidem tartrate 5 mg oral tablet (1 source)gamma-Aminobutyric Acid-ergic AgonistStart: 93-12-5375rbwdpdgq (AMBIEN) tablet 5 mg Completed/Discontinued Medications MedicationDrug Class(es)DatesSig (Normalized)Sig (Original)acetaminophen 300 mg / codeine phosphate 30 mg oral tablet (16 sources)Opioid AgonistStart: 02-12-2025 End: 62-00-3978wsra 1 tablet by mouth every four hours as needed for pain acetaminophen-codeine (Tylenol w/ Codeine #3) 300-30 MG tablet Take 1 tablet by mouth every 4 (four) hours if needed for moderate pain 02/12/2025 08/04/2025 Discontinuedcalcium chloride 0.0014 meq/ml / potassium chloride 0.004 meq/ml / sodium chloride 0.103 meq/ml / sodium lactate 0.028 meq/ml injectable solution (3 sources)Start: 03-22-2021 End: 96-31-6639wcptqwpo ringers bolus solution 1,000 mL Problems Active Problems Problem ClassificationProblemDateDocumented DateEpisodic/ChronicDisorders of teeth and jaw (1 source)Toothache; Translations: [Pain, dental]EpisodicHeadache; including migraine (1 source)Headache; Translations: [Nonintractable headache, unspecified chronicity pattern, unspecified headache type]34-06-7895BjkgomqdQslxqhjdldefw and screening for infectious disease (3 sources)Encounter for screening for infections with a predominantly sexual mode of transmission; Translations: [Exposure to sexually transmissible disorder]Onset: 569333-60-6678BnaaaoveYzubelbit disorders (1 source)Missed period; Translations: [Irregular menstruation, unspecified] 30-47-0114GijadyrEdbnerbegbod breast conditions (1 source)Mastodynia; Translations: [Mastodynia]EpisodicOther circulatory disease (1 source)Elevated blood pressure; Translations: [Elevated blood pressure reading]EpisodicOther female genital disorders (2 sources)Vaginal discharge; Translations: [Other specified noninflammatory disorders of vagina]19-57-8281MtbsvwzpEkaki and delivery including normal (20 sources)Normal ; Translations: [Encounter for supervision of normal , unspecified, unspecified trimester]Onset: 11-26-2020 Resolved: 974214-38-4874PurfawdvYklcy screening for suspected conditions (not mental disorders or infectious disease) (4 sources)Patient encounter status; Translations: [Encounter for other specified screening]70-18-7455VssvzfpeEvlpl skin disorders (1 source)Facial swelling ; Translations: [Jaw swelling]EpisodicOther upper respiratory infections (3 sources)Upper respiratory infection; Translations: [Acute upper respiratory infection, unspecified]Onset: 60-69-5692VwmggdudXjaiuqcj codes; unclassified (1 source)H/O: Disorder; Translations: [History of low potassium]Episodic Residual codes; unclassified (2 sources)Gestation period, 27 weeks; Translations: [27 weeks gestation of ]EpisodicResidual codes; unclassified (1 source)Gestation period, 36 weeks; Translations: [36 weeks gestation of ]EpisodicResidual codes; unclassified (2 sources)Gestation period, 17 weeks; Translations: [17 weeks gestation of ]05-64-7367KkuxcyzbUccdmqfl codes; unclassified (2 sources)Gestation period, 21 weeks; Translations: [21 weeks gestation of ]79-11-2069PeuudbcvBjkmhhbt codes; unclassified (2 sources)Gestation period, 25 weeks; Translations: [25 weeks gestation of ]33-21-4328TymfzixtSwpcaxbmq-related disorders (1 source)Nicotine dependence, other tobacco product, uncomplicated; Translations: [Nicotine dependence, other tobacco product, uncomplicated]Onset: 23-26-8646Snrqkyi Past or Other Problems Problem ClassificationProblemDateDocumented DateEpisodic/ChronicOther complications of (17 sources)Late entry into care; Translations: [Supervision of with insufficient care, second trimester]Onset: 11-26-2020 Resolved: 811655-89-6353QnmsvfzfNrqde complications of (15 sources)Chlamydia trachomatis infection in ; Translations: [Other infections with a predominantly sexual mode of transmission complicating , second trimester]Onset: 912223-73-9587Bskpijcd Results Test NameValueInterpretationReference RangeFacilityNo Panel InformationOrdered By: Radiologist Radiology on 96-04-1927ZKVJ Healthcare Work Phone: No Panel Informationon 44-64-6913Borqscmfr Study observation (narrative)NOMS HealthcareUS OB ANATOMYon 85-82-8739[address] [address] Ultrasound Report Signed Patient: EVA GRANADOS MR#: [id number] : 2000 Acct:[id number] Age/Sex: 24 / F ADM Date: 07/07/25 Loc: US Attending Dr: Tatiana Alcaraz Ordering Physician: Tatiana Alcaraz Date of Service: 07/07/25 Procedure(s): US OB anatomy Accession Number(s): [id number] cc: SANTINO CUEVA ; Tatiana Alcaraz [place] [address] Patient Name: EVA GRANADOS MRN: [facility]:[id number] date: 2000 Sex: F Assigned Patient Location: Current Patient Location: Accession/Order Number: [id number] Exam Date: 07/07/2025 13:57 Report Date: 07/08/2025 [...] all 4 extremities were surveyed by the showroom executive director and no abnormalities were detected. The stomach, [...] Cash M.D. 07/08/2025 8:12 AM Dictation Location: [place] [address] Electronically authenticated by: [id number] Date: 07/08/2025 08:12 Dictated By: Danni Cash M.D. Signed By: 07/08/25814 DD/ 1 TD/TT: Paint Roller Covermaker:TBHRadiology, Radiologist, - 07/08/2025 [place] [address] Ultrasound Report Signed Patient: EVA GRANADOS MR#: [id number] : 2000 Acct:[id number] Age/Sex: 24 / F ADM Date: 07/07/25 Loc: US Attending Dr: Tatiana Alcaraz Ordering Physician: Tatiana Alcaraz Date of Service: 07/07/25 Procedure(s): US OB anatomy Accession Number(s): [id number] cc: SANTINO CUEVA ; Tatiana Alcaraz [place] [id number] Patient Name: EVA GRANADOS MRN: [id number] date: 2000 Sex: F Assigned Patient Location: Current Patient Location: Accession/Order Number: [id number] Exam Date: 07/07/2025 13:57 Report Date: 07/08/2025 [...] all 4 extremities were surveyed by the showroom executive director and no abnormalities were detected. The stomach, [...] Cash M.D. 07/08/2025 8:12 AM Dictation Location: [place] [address] Electronically authenticated by: [id number] Y Date: 07/08/2025 08:12 Dictated By: Danni Cash M.D. Signed By: 07/08/25814 DD/ 1 TD/TT: Paint Roller Covermaker: YANELI Hodges OB CERVICAL LENGTHon 33-63-1876[place] [address] Ultrasound Report Signed Patient: EVA GRANADOS MR#: [id number] : 2000 Acct:[id number] Age/Sex: 24 / F ADM Date: 07/07/25 Loc: US Attending Dr: Tatiana Alcaraz Ordering Physician: Tatiana Alcaraz Date of Service: 07/07/25 Procedure(s): US OB cervical length Accession Number(s): [id number] cc: SANTINO CUEVA Kristina [place] [address] Patient Name: EVA GRANADOS MRN: [id number] date: 2000 Sex: F Assigned Patient Location: US Current Patient Location: Accession/Order Number: [id number] Exam Date: 07/07/2025 13:57 Report Date: 07/08/2025 [...] all 4 extremities were surveyed by the showroom executive director and no abnormalities were detected. The stomach, [...] Cash M.D. 07/08/2025 8:12 AM Dictation Location: [place] [address] Electronically authenticated by: [id number] Y Date: 07/08/2025 08:12 Dictated By: Danni Cash M.D. Signed By: 07/08/25814 DD/ 1 TD/TT: Paint Roller Covermaker:TBHRadiology, Radiologist, - 07/08/2025 [place] [address] Ultrasound Report Signed Patient: EVA GRANADOS MR#: [id number] : 2000 Acct:[id number] Age/Sex: 24 / F ADM Date: 07/07/25 Loc: US Attending Dr: Tatiana Alcaraz Ordering Physician: Tatiana Alcaraz Date of Service: 07/07/25 Procedure(s): US OB cervical length Accession Number(s): [id number] cc: SANTINO CUEVA ; Tatiana Alcaraz [place] [address] Patient Name: EVA GRANADOS MRN: [id number] date: 2000 Sex: F Assigned Patient Location: US Current Patient Location: Accession/Order Number: [id number] Exam Date: 07/07/2025 13:57 Report Date: 07/08/2025 [...] all 4 extremities were surveyed by the showroom executive director and no abnormalities were detected. The stomach, [...] Cash M.D. 07/08/2025 8:12 AM Dictation Location: [place] [address] Electronically authenticated by: [id number] Y Date: 07/08/2025 08:12 Dictated By: Danni Cash M.D. Signed By: 07/08/25814 DD/ 1 TD/TT: Paint Roller Covermaker: YANELI [facility] DRUG SCREEN RAPID (URINE)on 73-68-7110JBHFQKYDHJJ SCREEN URINENegativeNEGATIVENOMS HealthcareBARBITURATES SCREEN URINENegativeNEGATIVE NOMS HealthcareBENZODIAZEPINES [...] URINENegativeNEGATIVENOMS HealthcareCLINISYNCNOMS HealthcareUrinalysis macro (dipstick) panel (U)on 66-93-3963Ejigwrhvp, UA PositiveNegative - 4(70) +++ mg/dLNOMS HealthcareBlood, UANegativeNegative - 50 Obey/[facility] DivisionNOVA HealthcareClarity, UAClearNOVA HealthcareColor, UAYellowNOMS HealthcareGlucose, UANegativeNegative - 1999(110) ++++ mg/dLNOVA Healthcare Interpretation and review of laboratory resultsAbnormalNOVA HealthcareKetones, UANegativeNegative - 160(16) ++++ mg/dLNOVA HealthcareLeukocytes, UAPositive Negative - 500+++ Hai/mcLNOVA HealthcareNitrite, UANegativeNegative - Positive NOMS HealthcarepH, UA65 - 9NOMS HealthcareProtein, UAPositiveNegative - 1999(20) ++++ mg/dLNOVA HealthcareSpec Grav, UA1.031 - 1.03NOMS HealthcareUrobilinogen, UA1.00.2 - 12 mg/dLNOMS HealthcareNOVA HealthcareIGP,APTIMA HPV,AGE GDLNon 41-81-1877JIL GDLN ACOG TESTINGNote.[facility] Children's HospitalComment on above:TESTS RESULT FLAG UNITS REF RANGE LAB Clinician Provided Cytology Information Source.............Endocervix Other.............. No. of containers..01 ThinPrep Vial Age Algo ACOG Ebony... -30 10 FLAG LEGEND: L-Low Normal,H-High Normal,LL-Alert Low,HH-Alert High <-Panic Low,>-Panic High,A-Abnormal,AA-Critical Abnormal Performed at: 01 =G [facility] [address] [place] [address] Naima Shannon MD, IGP, RFX APTIMA HPV ASCUNote.NOMS HealthcareComment on above:TESTS RESULT FLAG UNITS REF RANGE LAB DIAGNOSIS: 02 NEGATIVE FOR INTRAEPITHELIAL LESION OR MALIGNANCY. Specimen adequacy: 02 Satisfactory for evaluation. Endocervical and/or squamous metaplastic cells (endocervical component) are present. Performed by: Vinod Mondragon, Anti Tank Missileman ([facility]) . 02 Note: Note 02 The [...] High,A-Abnormal,AA-Critical Abnormal Performed at: 02 WB [facility] [place] [address] [place] [address] Naima Shannon MD, Performed at: = - [facility] [id number] Internet Marketer: Naima Shannon MD, Phone: [phone] Performed at: [facility] [id number] Internet Marketer: Naima Shannon MD, Phone: [phone] SPATULA-ALONE ENDOCERVIX CLINISYNCNOMS HealthcareRECURRENT VAGINITIS (HTRX)on 27-85-8192UDKWDXUOA VAGINAE 29.974AbnormalNOMS HealthcareATOPOBIUM VAGINAEDetectedAbnormalNOMS Healthcare BVAB 2,3 (BACTERIAL VAGINOSIS ASSOCIATED BACTERIA 2, 3); MOBILUNCUS BQV1MEJE HealthcareBVAB 2,3 (BACTERIAL VAGINOSIS ASSOCIATED BACTERIA 2, 3); MOBILUNCUS SPPNot detectedNOMS HealthcareCANDIDA ALBICANS, PARAPSILOSIS, AFWYQTNEUI5NBFJ HealthcareCANDIDA ALBICANS, PARAPSILOSIS, TROPICALISNot detectedNOMS Healthcare PABLO YBNALPKG3GOZS HealthcareCANDIDA GLABRATANot detectedNOMS Healthcare APBLO RHGVXP9MCGX HealthcareCANDIDA KRUSEINot detectedNOMS HealthcareCHLAMYDIA ZIKDPLEZMVM0CXJS HealthcareCHLAMYDIA TRACHOMATISNot detectedNOMS HealthcareERMB, C; MEFA25.073AbnormalNOMS HealthcareERMB, C; MEFADetectedAbnormalNOMS Healthcare GARDNERELLA LEBOZWBFQ78.45AbnormalNOMS HealthcareGARDNERELLA VAGINALISDetected AbnormalNOMS HealthcareInterpretation and review of laboratory resultsAbnormal NOMS HealthcareMEGASPHAERA (TYPES 1, 2)0NOMS HealthcareMEGASPHAERA (TYPES 1, 2) Not detectedNOMS HealthcareMYCOPLASMA LKPSYNNWEH1DXWX HealthcareMYCOPLASMA GENITALIUMNot detectedNOMS HealthcareNEISSERIA UYAOPJROVMO8CGYX Healthcare NEISSERIA GONORRHOEAENot detectedNOMS HealthcareTET B, TET M24.604AbnormalNOMS HealthcareTET B, TET MDetectedAbnormalNOMS HealthcareTRICHOMONAS NEMBXJYIG0LCHI HealthcareTRICHOMONAS VAGINALISNot detectedNOMS HealthcareNOMS Healthcare Urinalysis macro (dipstick) panel (U)on 39-08-0058Azeuevczh, UANegativeNegative - 4(70) +++ mg/dLNOMS HealthcareBlood, UANegativeNegative - 50 Obey/mcLNOMS HealthcareClarity, UAClearNOMS HealthcareColor, UAYellowNOMS HealthcareGlucose, UANegativeNegative - 2000(110) ++++ mg/dLNOMS HealthcareInterpretation and review of laboratory resultsNormalNOVA HealthcareKetones, UANegativeNegative - 160(16) ++++ mg/dLNOVA HealthcareLeukocytes, UANegativeNegative - 500+++ Hai/mcL NOMS HealthcareNitrite, UANegativeNegative - PositiveNOMS HealthcarepH, UA85 - 9 NOMS HealthcareProtein, UANegativeNegative - 2000(20) ++++ mg/dLNOVA Healthcare Spec Grav, UA1.011 - 1.03NOMS HealthcareUrobilinogen, UA1.00.2 - 12 mg/dLNOVA HealthcareNOVA HealthcareBOX TESTon 91-12-2716PMA TEST SENT OUTUNITY BOXNOVA KespdgccrlVIY2QAUSVJZQG YigrxsxwwoNJO07/7/25NOVA HealthcareCLINISYNCNOMS HealthcareHCG ( test) Ql (U)on 49-81-0542Wltscdsqvvbmqt and review of laboratory resultsAbnormalNOVA HealthcarePreg Test, UrPositiveNegativeHarry S. [facility] HealthcareUS OB TRANSVAGINALon 03-49-2398FO OB TRANSVAGINAL FINDINGS: A single intrauterine gestational [...] No LMP recorded.Urinalysis macro (dipstick) panel (U)on 29-40-5881Vgjdvolsz, UA NegativeNegative - 4(70) +++ mg/dLNOVA HealthcareBlood, UAPositiveNegative - 50 Obey/mcLNOVA HealthcareClarity, UAClearNOVA HealthcareColor, UAAmberNOVA HealthcareGlucose, UANegativeNegative - 2000(110) ++++ mg/dLPRIMARY CHILDR[facility] Healthcare Interpretation and review of laboratory resultsAbnormalNOVA HealthcareKetones, UANegativeNegative - 160(16) ++++ mg/dLPRIMARY CHILDREN'S [facility]OSPITAL HealthcareLeukocytes, UANegative Negative - 500+++ Hai/mcLPRIMARY CHILDREN'S [facility]OSPITAL HealthcareNitrite, UANegativeNegative - Positive NOMS HealthcarepH, UA65 - 9NOVA HealthcareProtein, UANegativeNegative - 2000(20) ++++ mg/dLPRIMARY CHILDREN'S [facility]OS[facility]ITAL HealthcareSpec Grav, UA1.0251 - 1.03NOVA HealthcareUrobilinogen, UA1.00.2 - 12 mg/dLHarry S. Truman Memorial [facility] HealthcareALL CBC WITH AUTO DIFFon 54-34-3912LAFRVMBCN ABSOLUTE AUAQ3DJWYSSM Health Cardinal Glennon Children's HospitalBasophils/100 WBC (Bld)0.4 %0.2 - 2.0 %[facility] HospitalEosinophils/100 WBC (Bld)1.5 %0.9 - 7.0 %[facility] Erythrocyte distribution width (RBC) [Ratio]12.9 %11.0 - 15.0 %[facility] Hematocrit (Bld) [Volume fraction]33.3 %Low36.0 - 48.0 %[facility] Hemoglobin (Bld) [Mass/Vol]11.4 g/dLLow12.0 - 16.0 g/dLSSM Health Cardinal Glennon Children's HospitalIMMATURE GRANULOCYTES ABS AUTO0.02NOCrittenton Behavioral HealthImmature granulocytes/100 WBC (Bld)0.4 % 0.0 - 0.5 %[facility] Children's HospitalInterpretation and review of laboratory results AbnormalNOCrittenton Behavioral HealthLYMPHOCYTES ABSOLUTE AUTO1.7NOMS [facility] Lymphocytes/100 WBC (Bld)30.7 %20.5 - 60.0 %[facility]H (RBC) [Entitic mass]30.6 pg26.7 - 34.0 pgSaint Joseph Hospital WestHC (RBC) [Mass/Vol]34.2 g/dL29.9 - 35.2 g/dLSSM Health Cardinal Glennon Children's HospitalMCV (RBC) [Entitic vol]89.5 fL81.0 - 99.0 fLSSM Health Cardinal Glennon Children's HospitalMONOCYTES ABSOLUTE AUTO0.4NOVA HealthcareMonocytes/100 WBC (Bld)7.3 % 1.7 - 12.0 %NOMS HealthcareNEUTROPHILS ABSOLUTE AUTO3.3NOCrittenton Behavioral Health Neutrophils/100 WBC (Bld)59.7 %43.0 - 75.0 %NOMS HealthcarePlatelet mean volume (Bld) [Entitic vol]9.9 fL9.5 - 13.5 fLNOCrittenton Behavioral HealthTBH EO #0.1NOMS Healthcare TBH NGU280VHEC [facility] RBC3.72LowNOScotland County Memorial Hospital WBC5.5NOThedaCare Regional Medical Center–NeenahALL TYPE AND SCREENon 97-84-1252HII and Rh group Nom (Bld)Blood group O Rh(D) positiveCentral Harnett HospitalUS OB TRANSVAGINALon 34-18-2688PX OB TRANSVAGINALEXAM: US OB TRANSVAGINAL HISTORY: Viability. [...] II, MD, PHD at 16-Jan-2025 01:26:[address] [employer]-[facility] TeleradiologyNormalNot AvailableComment on above:Order Comment: US OB VIABILITY PLEASE PERFORM TRANSVAGINAL ULTRASOUND IF INDICATED No LMP recorded.Urine Cultureon 80-47-8661Ucxlsirx identified Cx Nom (U)>100,000 colonies/ml mixed bacterial skin contaminants 2 Days PERFORMED BY: [place] [address] PATHOLOGIST DAIRY NUTRITIONIST ANGELIC LESLIE M.D.NormalAscension Sacred Heart Bay Physician GroupComment on above: Performed By: #### CUU #### [place] [address] USAUS OB TRANSVAGINALon 92-23-3905YC OB TRANSVAGINALEXAM: US OB TRANSVAGINAL HISTORY: Dating. [...] II, MD, PHD at 13-Jan-2025 11:46:49 PM [facility] TeleradiologyNormalNot AvailableComment on above:Order Comment: US OB TRANSVAGINAL No LMP recorded.STREP A MOLECULARon 31-43-0340BWMEX A MOLECULARNegativeNormal NegativeAurora St. [facility] SystemComment on above:Performed By: #### [id number] #### [place] [address] USAStrep AOrdered By: Khloe Kaminski on 02-06-2023 Streptococcus.beta-hemolytic Org specific cx Ql (Unsp spec)NegativeNegative [facility] [place] SystemStreptococcus.beta-hemolytic Org specific cx Ql (Unsp spec)Ordered By: Khloe Kaminski on 29-49-8521Jopugjyirvfdzi and review of laboratory resultsNormalGenesis HealthCare SystemAurora St. [facility] [place] SystemGCon 94-82-0475SSXAZRHHZ AMPLIFIED PROBENegativeNormalNegativeAurora St. [facility] [place] SystemComment on above:Performed By: #### [id number] #### [place] [address] QM AMPLIFIED PROBENegativeNormalNegativeAurora St. [facility] [place] System Comment on above:Performed By: #### [id number] #### [place] [address] XOhs 42-67-8816SJXMRBFKQ SOURCEThinPrepNormalGMendota Mental Health Institute SystemComment on above:Performed By: #### [id number] #### [facility] [place] [address] UU SOURCEThinPrepNormalGMendota Mental Health Institute SystemComment on above: Performed By: #### [id number] #### [place] [address] GL Breast - left limitedon 10-15-2021 Normal examination. [...] Follow-Up BI-RADS: ACR BI-RADS 1: Negative [employer] [facility] HospitalRadiology Study observation (narrative)[facility] HospitalUS Breast - left limitedOrdered By: Dimas Patel on 81-45-8594Fnajixx [employer] [facility] Work Phone: cbc without differentialOrdered By: Tatiana Lewis on 07-91-1511Hsbfmgpkcmh distribution width (RBC) [Ratio]13.9 %11.5 - 14.5 %[facility] HospitalHematocrit (Bld) [Volume fraction]28.6 %Low33.6 - 46.8 % [facility] HospitalHemoglobin (Bld) [Mass/Vol]9.1 g/dLLow11.7 - 15.8 g/dL [facility] HospitalInterpretation and review of laboratory resultsAbnormal [facility] HospitalMCH (RBC) [Entitic mass]28.4 pg27.5 - 32.[address] [facility] HospitalMCHC (RBC) [Mass/Vol]31.8 g/dL30.7 - 35.5 g/dlCHI St. [facility] HospitalMCV (RBC) [Entitic vol]89.4 fL80.2 - 99.[address] [facility] HospitalPlatelets (Bld) [#/Vol]196.0 10*3/uLCHI St. [facility] HospitalRBC (Bld) [#/Vol]3.20 10*6/uLLowCHI St. [facility] HospitalWBC LM Ql (Sput)11.3HighOzarks Community HospitalBUPRENORPHINE SCRN, UR, REFLEX QUANT Ordered By: Tatiana Lewis on 39-77-1103Fpwdeyebtxeyb Screen, URNot detected CUTOFF <10 ng/mLCHI St. [facility] HospitalTox Messagesee belowCHI St. [facility]ide HospitalComment on above:Notes: 1. SCREENING RESULTS SHOULD BE CONSIDERED PRESUMPTIVE UNLESS THE PRESENCE OF THE ANALYTE HAS BEEN CONFIRMED BY A REFERENCE LAB. 2. ALL DRUG GROUPS ARE ANALYZED ON URINE. [facility] HospitalCBCOrdered By: Tatiana Lewis on 53-00-8080Gfsklawtqnr distribution width (RBC) [Ratio]13.4 %11.5 - 14.5 %[facility] Hematocrit (Bld) [Volume fraction]35.4 %33.6 - 46.8 %[facility] Hemoglobin (Bld) [Mass/Vol]11.9 g/dL11.7 - 15.8 g/dLCH[facility] Interpretation and review of laboratory resultsAbnormalGHCA Houston Healthcare North [facility] MCH (RBC) [Entitic mass]28.3 pg27.5 - 32.[address] [facility] HospitalMCHC (RBC) [Mass/Vol]33.6 g/dL30.7 - 35.5 g/dlCHI St. [facility] HospitalMCV (RBC) [Entitic vol]84.1 fL80.2 - 99.[address] [facility] HospitalPlatelets (Bld) [#/Vol]246.0 10*3/uLCHI St. [facility] HospitalRBC (Bld) [#/Vol]4.21 10*6/uLCHI St. [facility] HospitalWBC LM Ql (Sput)11.9HighOzarks Community Hospital Syphilis Treponema AntibodyOrdered By: Tatiana Lewis on 69-26-2041Nqmssfni Treponema AntibodyNon-ReactiveNonreactiveOzarks Community HospitalToxicology screen, urineOrdered By: Tatiana Lewis on 56-69-3175Udtvlpvbvvvd Screen method >1000 ng/mL Ql (U)Not detectedCUTOFF <1000 ng/mLCHI St. [facility] HospitalBarbiturates Screen method >200 ng/mL Ql (U)Not detectedCUTOFF <200 ng/mLCHI [facility] HospitalBenzodiazepines Ql (U)Not detectedCUTOFF <200 ng/mLCH[facility] HospitalBenzoylecgonine Screen (U) [Mass/Vol]Not detectedCUTOFF <300 ng/mLCH[facility] HospitalCannabinoids Screen method >50 ng/mL Ql (U)Not detectedCUTOFF <50 ng/mLCHI St. [facility] HospitalFentanylNot detectedCUTOFF 1.0 ng/mLCHI St. [facility] HospitalOpiates Screen (U) [Mass/Vol]Not detectedCUTOFF <300 ng/mLCH[facility] Phencyclidine (U) [Mass/Vol]Not detectedCUTOFF <25 ng/mLCHI St. [facility] HospitalTox Messagesee belowCHI St. [facility]ide HospitalComment on above:Notes: 1. SCREENING RESULTS SHOULD BE CONSIDERED PRESUMPTIVE UNLESS THE PRESENCE OF THE ANALYTE HAS BEEN CONFIRMED BY A REFERENCE LAB. 2. ALL DRUG GROUPS ARE ANALYZED ON URINE. [facility] HospitalType and ScreenOrdered By: Tatiana Lewis on 38-82-3458AYE and Rh group Nom (Bld)Blood group O Rh(D) positiveCHI St. [facility] HospitalBlood group antibody screen.cells I+II+III QlNegativeOzarks Community HospitalFern test, vaginal fluidOrdered By: Stacy Alonso on 78-45-4688Sklm TestNONSydnie SEENNONE SEENParkview Regional HospitalCBCon 21-40-2410Eocjtvlbtui distribution width (RBC) [Ratio]13.4 %11.5 - 14.5 %[facility] HospitalHematocrit (Bld) [Volume fraction]34.0 %33.6 - 46.8 %[facility] HospitalHemoglobin (Bld) [Mass/Vol] 11.2 g/dLLow11.7 - 15.8 g/dLCHI St. [facility] HospitalInterpretation and review of laboratory resultsAbnormalGTexas Health Presbyterian Hospital of RockwallH (RBC) [Entitic mass] 29.2 pg27.5 - 32.[address] [facility] HospitalMCHC (RBC) [Mass/Vol]32.9 g/dL30.7 - 35.5 g/dlCHI St. [facility] HospitalMCV (RBC) [Entitic vol]88.8 fL80.2 - [address] [facility] HospitalPlatelets (Bld) [#/Vol]244.0 10*3/[facility] HospitalRBC (Bld) [#/Vol]3.83 10*6/[facility] HospitalWBC LM Ql (Sput)10.9 HighOzarks Community HospitalGlucose tolerance, 1 hour on 07-90-5340Avyvqca 1 Hr post 50 g glucose PO [Mass/Vol]83 mg/dLCHI St. [facility] HospitalComment on above:REFERENCE-GLUCOSE 1 HR WITH DEXTROSE Values >140 mg/dL constitute a positive screen [facility] Medical Centeryphilis Treponema Antibody (RPR)on 32-22-8678Syitpcvz Treponema AntibodyNonreactiveNonreactiveOzarks Community HospitalComprehensive metabolic panel aka Metaboon 78-76-3292Bitgzyz [Mass/Vol]3.7 g/dL3.5 - 5 g/dLCHI [facility]. [facility] HospitalAlk Phos78 U/L24 - 126 U/[facility] CenterALT [Catalytic activity/Vol]12 U/L4 - 35 U/[facility] CenterAST [Catalytic activity/Vol]19 U/L3 - 47 U/[facility] CenterBilirubin [Mass/Vol]0.6 mg/dL0.2 - 1.6 mg/dLCH[facility] Calcium [Mass/Vol]9.5 mg/dL8.4 - 10.4 mg/dLCHI St. [facility] HospitalChloride [Moles/Vol]105 mmol/L96 - 109 mmol/[facility] CenterCO2 [Moles/Vol]21 mmol/LLow22 - 30 mmol/[facility] CenterComprehensive metabolic 2000 panel0.46 mg/dLLow0.52 - 1.04 mg/dLCH[facility] St[facility] HospitalGlucose [Mass/Vol]87 mg/dL65 - 100 mg/dLCH[facility] HospitalInterpretation and review of laboratory resultsAbnormalGHCA Houston Healthcare North CypressPotassium [Moles/Vol]4.2 mmol/L3.6 - 5.1 mmol/[facility] CenterProtein [Mass/Vol]6.8 g/dL6.3 - 8.2 g/dLAngel Medical Centerodium [Moles/Vol]133 mmol/DDhv966 - 147 mmol/L [facility] HospitalUrea nitrogen [Mass/Vol]7 mg/dLLow8 - 20 mg/dLCHI St. [facility] HospitalGLOMERULAR FILTRATION RATEon 42-21-9440UEB/1.73 sq M.predicted MDRD (S/P/Bld) [Vol rate/Area]mL/min/{1.73_m2}[facility] HospitalComment on above:To estimate the GFR for Americans, [...] for CKD Kidney Int Suppl.2013;3:1-150 Hemoglobin A1con 67-56-8455WrA4u (Bld) [Mass fraction]4.3 %0 - 6 %[facility] HospitalComment on above:Reference Interval for %A1c %A1c (NGSP) Interpretation <6.0% Non-Diabetic Range >6.5% Action Suggested . Hepatitis C antibodyon 84-92-3243BUO Ab Qn (S)NonreactiveNonreactiveOzarks Community HospitalLDH SERUMon 92-05-9841QKG Pyruvate to lactate reaction [Catalytic activity/Vol]513 U/L308 - 626 U/LGeBaylor Scott & White Medical Center – Lake PointeOtheron 50-85-9221ZvmxuaqOzarks Community Hospital Type & Screen (must order with either panel)on 62-92-7653ONU and Rh group Nom (Bld)O POSCHI St. [facility] HospitalBlood group antibody screen.cells I+II+III QlNegativeOzarks Community HospitalProtein / creatinine ratio, urineon 80-96-5111Zbjxpxh (U) [Mass/Vol]10 mg/dL0 - 12 mg/dLCHI St[facility] HospitalProtein/Creatinine (U) [Mass ratio]0.[address] [facility] HospitalUr Cre-Wfjzpk879.20 mg/dLNO NORMALSGenesUniversity Hospitals Geneva Medical CenterUric acidon 52-45-6844Inmmx [Mass/Vol]3.0 mg/dL2 - 7 mg/dLOzarks Community Hospital Vital Signs Date TimeVital SignValuePerforming YydatlkxbCwofhkrm11-52-4234 15:19-0500Body .95 kgCorey Marcelo DO Work Phone: [phone] [place], [place] [address]Oucsiiprwc65-73-2527 15:19-0500Diastolic blood clfprhye42 mm[Hg]Robi Marcelo DO Work Phone: [phone] [place], [place] [address]Dhbznlntoh71-21-3044 15:19-0500Systolic blood ngppguzp661 mm[Hg]Robi Marcelo DO Work Phone: [phone])[address]10-06-2025 13:11-0400Body yifzxj63.75 kgKrld Sierraly CHAINSTITCH SEWING MACHINE OPERATOR Work Phone: [phone])[address]10-06-2025 13:11-0400Diastolic blood goeunedn19 mm[Hg]Tatiana Kieran CHAINSTITCH SEWING MACHINE OPERATOR Work Phone: [phone])[address]10-06-2025 13:11-0400Systolic blood yxfqowoz121 mm[Hg]Tatiana Kieran CHAINSTITCH SEWING MACHINE OPERATOR Work Phone: [phone] [place], [place] 1832209-08-2025 10:59-0400Body .66 kgKristina Kieran CHAINSTITCH SEWING MACHINE OPERATOR Work Phone: [phone])[address] [place], [place] 1832209-08-2025 10:59-0400Diastolic blood bojfnnfx75 mm[Hg]Tatiana Kieran CHAINSTITCH SEWING MACHINE OPERATOR Work Phone: [phone])[address]09-08-2025 10:59-0400Systolic blood qddvzhid825 mm[Hg]Tatiana Kieran CHAINSTITCH SEWING MACHINE OPERATOR Work Phone: [phone])[address]08-07-2025 13:21-0400Body .66 kg[facility]20[facility] 13:21-0400Diastolic blood nzkqzohp35 mm[Hg] [facility]08-07-2025 13:21-0400Systolic blood ycbnmkxo816 mm[Hg] [facility]05-09-2023 04:32-0400Diastolic blood shdueyxe88 mm[Hg] Conchita Bomsta DO Work Phone: [facility]05-09-2023 04:32-0400Heart rate69 /minConchita Brownta DO Work Phone: [phone] [place] [address] [employer] Ufxqcs27-75-8987 04:32-0400 Respiratory rate18 /minConoron Kevinta DO Work Phone: [phone] [place] [address] [employer] Kyyotn53-59-2901 04:32-6941AdG1% (BldA) [Mass fraction]99 %Conchita Brownta DO Work Phone: [phone] [place] [address] [employer] Mrdwrv64-59-2160 04:32-0400Systolic blood apsuwyli190 mm[Hg]Conchita Brownta DO Work Phone: [phone] [place] [address] [employer] Tssmrs95-75-5607 23:14-0400Body vkygle039.6 cmConchita Brownta DO Work Phone: [phone] [place] [address] [employer] Adcqvl12-73-6041 23:14-0400Body mass index (BMI) [Ratio]34.7 kg/s7BoynfknConchita Brownta DO Work Phone: [phone] [place] [address] [employer] Xccyck27-67-9663 23:14-0400Body pwsxlbncboj83.91 [degF]Conchita Brownta DO Work Phone: [phone] [place] [address] [employer] Zgxqty62-18-0653 23:14-0400Body qhgeva43.52 kgConchita Brownta DO Work Phone: [phone] [place] [address] [employer] Qzbybv42-12-5449 08:00-0400Body qsgemcewmfd29.29 [degF]Tatiana Lewis MD Work Phone: [phone])[address] [place] [address] [employer] Jqbgjj21-62-1519 08:00-0400 Diastolic blood eiownbnj65 mm[Hg]Tatiana Lewis MD Work Phone: [phone] [place] [address] FlickIM06-23-2021 08:00-0400Heart rate76 /minTatiana Lewis MD Work Phone: [phone])[address] [place] [address] [employer] Tzbggi10-10-9713 08:00-0400 Respiratory rate16 /minTatiana Lewis MD Work Phone: [phone])[address] [place] [address] FlickIM06-23-2021 08:00-0400Systolic blood zoipjose269 mm[Hg]Tatiana Lewis MD Work Phone: [phone] [place] [address] [employer] Zghyym52-36-4542 04:00-3113RdX2% (BldA) [Mass fraction]97 %Tatiana Lewis MD Work Phone: [phone] [place] [address] [employer] Nmljdt58-80-0949 20:37-0400Body nvvyyp066.6 cmTatiana Lewis MD Work Phone: [phone] [place], [place] 4723506-20-2021 20:37-0400Body mass index (BMI) [Ratio]39.71 kg/x5SqiamoknTatiana Lewis MD Work Phone: [phone])[address] [place] [address] [employer] Gnzyvs88-01-4816 20:37-0400Body gtmcte262.58 kgTatiana Lewis MD Work Phone: [phone] [place] [address] [employer] Afnktk32-22-4732 21:50-0400 Diastolic blood rtedmleg67 mm[Hg]Stacy Alonso MD Work Phone: [phone] [place] [address] [employer] Fanzob33-68-3077 21:50-0400Heart rate77 /Claribel Alonso MD Work Phone: [phone] [place] [address] [employer] Wggepq85-48-0295 21:50-0400Systolic blood mm[Hg]Stacy Alonso MD Work Phone: [phone])[address] [place] [address] [employer] Bnufpf88-14-3754 20:50-0400Body mpdoxx383.6 cmStacy Alonso MD Work Phone: [phone] [place] [address] [employer] Upoyei72-44-1105 20:50-0400Body mass index (BMI) [Ratio]38.58 kg/y3NeqlvzStacy Alonso MD Work Phone: 1(357)[address] [place] [address] [employer] Liynqn84-05-6623 20:50-0400Body imlmtn168.41 kgStacy Alonso MD Work Phone: [phone])[address] [place] [address] [employer] Jcaepn96-28-2520 20:50-0400 Respiratory rate20 /Claribel Alonso MD Work Phone: [phone])[address] [place], [place] 4723506-05-2021 20:48-0400Body wvazugcropq35.01 [degF]Stacy Alonso MD Work Phone: 1(110)[address] [place] [address] [employer] Fvzghr05-98-2907 02:04-0400 Diastolic blood aibzfocj22 mm[Hg]Stacy Alonso MD Work Phone: 1(516)[address] [place] [address] [employer] Uretrs00-08-4533 02:04-0400Heart rate88 /Claribel Alonso MD Work Phone: [phone] [place] [address] [employer] Mlzgok53-25-7267 02:04-0400Systolic blood jusavmbj864 mm[Hg]Stacy Alonso MD Work Phone: 1(436)[address] [place] [address] [employer] Gcoqko58-56-4942 01:37-0400Body afyinp872.6 cmStacy Alonso MD Work Phone: [phone])[address] [place] [address] [employer] Lcyvri45-07-9910 01:37-0400Body mass index (BMI) [Ratio]38.41 kg/z0TpjudfStacy Alonso MD Work Phone: 1(507)[address] [place] [address] [employer] Dtrygu80-42-5558 01:37-0400Body mnvossqgqoj29.91 [degF]Stacy Alonso MD Work Phone: [phone])[address] [place] [address] [employer] Xfnheg51-07-9815 01:37-0400Body walbpv890.96 kgStacy Alonso MD Work Phone: 1(080)[address] [place] [address] [employer] Klacby74-86-9211 01:37-0400 Respiratory rate20 /Claribel Alonso MD Work Phone: [phone])[address] [place] [address] [employer] Nyogoy11-18-6759 21:58-0400 Diastolic blood twzcveeh67 mm[Hg]Stacy Alonso MD Work Phone: 1(076)[address] [place] [address] [employer] Hcwjwa44-68-4874 21:58-0400Heart rate91 /Claribel Alonso MD Work Phone: 1(205)[address] [place] [address] [employer] Aulxzq30-51-4341 21:58-0400 Respiratory rate18 /Claribel Alonso MD Work Phone: [facility]05-05-2021 21:58-0400Systolic blood ivogpxeh445 mm[Hg]Stacy Alonso MD Work Phone: [facility]11-13-2020 09:19-0500Body Bbmwvtxkaxw48.49 [degF][facility]11-13-2020 06:50-0500BMI (Body Mass Index)32.28 kg/m2[facility]11-13-2020 06:50-0500Body jkozym97.72 kgH[facility]ry [facility]11-13-2020 06:50-0500BP Xgrhdaksf94 mm[Hg][facility]11-13-2020 06:50-0500BP Lrwxbmef084 mm[Hg][facility]11-13-2020 06:50-2493Prtuht458.6 cmAHCA [facility]11-13-2020 06:50-0500 Pulse (Heart Rate)82 /minH[facility]ry Regional Medical Center11-13-2020 06:50-0500 Pulse Ryeqnhpr75 %[facility]11-13-2020 06:50-0500 Respiratory Rate18 /minHendry [facility] Medical Center Encounters Encounter DateEncounter TypeCare ProviderFacilityStart: 08-04-2025 End: 24-96-4741Tqooaz outpatient visit 15 minutesCorey Marcelo DO Work Phone: NOGX [place] OBGYNComment on above:Second trimester ([facility]); 25 weeks gestation of ([facility])Start: 08-04-2025 End: 62-73-8845busmtbwiazBLVKC FAZIONot AvailableStart: 08-04-2025 End: 15-62-7105Eaotxw flowsheetCorey Marcelo DO Work Phone: noMS [place] OBGYNStart: 08-04-2025 End: 33-73-8821Xllkdm flowsheetCorey Marcelo DO Work Phone: noms Brain OBGYNStart: 07-08-2025 End: 14-00-7720Mzizhupbd Result EncounterTatiana Alcaraz NP Work Phone: noms External Department UnsolicitedStart: 07-08-2025 End: 44-23-9996Pykwfzmis Result EncounterTatiana Alcaraz CHAINSTITCH SEWING MACHINE OPERATOR Work Phone: noms External Department UnsolicitedStart: 07-07-2025 End: 01-78-1659Hxncku flowsheetNunua Kieran CHAINSTITCH SEWING MACHINE OPERATOR Work Phone: NOMS [place] OBGYNStart: 07-07-2025 End: 66-17-4251Mwnyzf flowsheetNunua Kieran CHAINSTITCH SEWING MACHINE OPERATOR Work Phone: NOQD [place] OBGYNStart: 07-07-2025 End: 30-55-4907Mfeqvalxd Result EncounterCorey Marcelo DO Work Phone: noms External Department UnsolicitedStart: 07-07-2025 End: 16-46-0723Nzrsyy outpatient visit 15 minutesTatiana Alcaraz CHAINSTITCH SEWING MACHINE OPERATOR Work Phone: NOWC [place] OBGYNComment on above:21 weeks gestation of ([facility]); Second trimester ([facility]); Diabetes mellitus screeningStart: 07-07-2025 End: 93-72-0040fgirfknlfnBBBGIPVW EBERLYNot AvailableStart: 06-09-2025 End: 81-08-5843Yyyvkj flowsheetTatiana Sierraly CHAINSTITCH SEWING MACHINE OPERATOR Work Phone: NOOJ [place] OBGYNStart: 06-09-2025 End: 40-07-8483Dtjfjt flowsheetNunua Kieran CHAINSTITCH SEWING MACHINE OPERATOR Work Phone: NOSM [place] OBGYNStart: 06-09-2025 End: 45-56-0672Syuopdrxx Result EncounterTatiana Alcaraz CHAINSTITCH SEWING MACHINE OPERATOR Work Phone: noms External Department UnsolicitedStart: 06-09-2025 End: 74-36-7475Vlbrrumk Result EncounterTatiana Alcaraz CHAINSTITCH SEWING MACHINE OPERATOR Work Phone: noms External Department UnsolicitedStart: 06-09-2025 End: 73-63-0203vksajazixgIHYJGYXC EBERCLEONot AvailableStart: 06-09-2025 End: 79-59-5409Hjvjdu outpatient visit 15 minutesTatiana Alcaraz NP Work Phone: noms Brain OBGYNComment on above:17 weeks gestation of ([facility]); Second trimester ([facility]); Screening, , for anatomic survey ([facility]); Exposure to STD; Vaginal discharge; Well woman exam with routine gynecological examStart: 06-09-2025 End: 73-29-5548Epxruzk encounter procedureTatiana Alcaraz NP Work Phone: noms HealthcareStart: 05-08-2025 End: 80-82-0451Etklingjp Result EncounterCorey Marcelo DO Work Phone: noms External Department UnsolicitedStart: 05-08-2025 End: 44-51-7927Oswsbeesi Result EncounterCorey Marcelo DO Work Phone: noms External Department UnsolicitedStart: 05-08-2025 End: 09-81-0819blmbnunaijFKTLTZRM EBERLYNot AvailableStart: 05-08-2025 End: 84-52-3369Asyjce outpatient visit 5 minutesMarcelo Gooden ObNOMS Brain OBGYNComment on above:GA: 22c6nDjuff: 05-08-2025 End: 62-75-8510aiqmdqvdqsUYLKNMHW EBERLYNot AvailableStart: 68-17-2185yydpfbimsx Octavio MartinzeFacility:[facility] Hospitaltart: 01-24-2025 End: 44-17-6883Jbxscgnll Result EncounterCorey Marcelo DO Work Phone: noms External Department UnsolicitedStart: 01-24-2025 End: 01-52-3521Bywznmpef Result EncounterCorey Marcelo DO Work Phone: noms External Department UnsolicitedStart: 01-23-2025 End: 02-52-9131Gklsbjmda Result EncounterCorey Marcelo DO Work Phone: noms External Department UnsolicitedStart: 01-23-2025 End: 26-24-9762Wyphitayr Result EncounterCorey Marcelo DO Work Phone: noms External Department UnsolicitedStart: 01-16-2025 End: 94-86-1491wkqaverfovPNDFNKFC EBERLYNot AvailableStart: 01-15-2025 End: 12-32-0471ktrxgufhneZKE [facility] Work Phone: Start: 01-15-2025 End: 71-41-2040Rdgirpeh [facility] C[facility]-LAB Path Spec Brain HospStart: 01-10-2025 End: 26-26-8110xuhpsyklgiSKSYZEUG EBERLYNot AvailableStart: 98-50-9369Ytmgplzayj [facility] Ctr-BH CredibleStart: 02-07-2023 End: 36-88-6321Fbrovxxpt department patient visitNONSydnie [facility] SystemStart: 02-07-2023 End: 99-64-5089Iaduhcozc department patient visitConchita Carrion DO Work Phone: [facility] Emergency DeptComment on above:Sore throat (Primary Dx)Start: 47-73-7214pmiulgsutpXSVNVT [facility] SystemStart: 06-14-2022 End: 61-91-9179fbefmqmnycJYTXXQOFort Memorial Hospital SystemStart: 06-14-2022 Encounter for gynecological examination (general) (routine) without abnormal findingsProHealth [facility]au[facility] SystemStart: 06-14-2022 End: 65-82-5987yggumhzjxvETMBYBZFort Memorial Hospital SystemStart: 02-06-2022 End: 14-39-8300Endqlfslor hospital visit by Meredith Upton DO Work Phone: [facility] LabStart: 02-04-2022 End: 28-34-5344Psnprfeuyd hospital visit by Brooke Gutierrez APRN [employer] Work Phone: [facility] LabComment on above:URI with cough and congestionStart: 10-15-2021 End: 65-07-0980Rbnadsoowo hospital visit by Cindy Abbasi APRN, CNP Work Phone: [phone] [place] [address] ImagingComment on above:Breast pain, leftStart: 06-08-2021 End: 39-05-5880Mfnhtzzvfc hospital visit by Kodak Fitzgerald MD Work Phone: [phone])[facility] [place] [address] LabStart: 03-21-2021 End: 69-32-5824Byhpgvaoas and management of inpatientTatiana Lewis MD Work Phone: [phone] [place] [address] (2 [facility])Comment on above:Encounter for induction of labor (Primary Dx)Start: 03-06-2021 End: 93-15-6783Ynxffgtriv hospital visit by Lorena Alonso MD Work Phone: [phone] [place] [address] (2 [place])Start: 03-02-2021 End: 22-37-7858Szjjvljyga hospital visit by Lorena Alonso MD Work Phone: [phone] [place] [address] (2 [place])Start: 02-24-2021 End: 74-46-5932Omvbtjneps hospital visit by Brenda Rodarte DO Work Phone: [phone] [place] [address] LabComment on above:36 weeks gestation of ; Chlamydia trachomatis infection in mother during second trimester of Start: 02-03-2021 End: 10-30-9805Omrmowjcve hospital visit by Lorena Alonso MD Work Phone: [phone] [place] [address] (2 [place])Start: 01-05-2021 End: 27-58-6802Ufdjgzzdbb hospital visit by Brenda Rodarte Work Phone: [phone] [place] [address] LabComment on above:27 weeks gestation of pregnancyStart: 12-21-2020 End: 91-06-4402Vjgpodgwlx hospital visit by Brenda Rodarte Work Phone: [phone] [place] [address] LabComment on above:27 weeks gestation of ; Chlamydia trachomatis infection in mother during second trimester of Start: 11-26-2020 End: 73-89-3989Jpmojunqst hospital visit by Brenda Rodarte Work Phone: [facility] LabComment on above:Late care affecting in second trimesterStart: 11-26-2020 End: 84-40-9290Gesdjcnyuw hospital visit by Brenda Rodarte Work Phone: [facility] LabComment on above:Late care affecting in second trimester; History of low potassium; Elevated blood pressure readingStart: 08-14-2020 End: 24-96-5299Abuodcgip department patient visitAmy Cao Work Phone: [facility] Emergency DeptComment on above:Pain, dental (Primary Dx); Jaw swelling Procedures DateProcedureProcedure DetailPerforming ClinicianStart: 25-71-5830GP OB ANATOMY Tatiana Alcaraz NP Work Phone: Start: 94-49-6468QK OB CERVICAL LENGTHTatiana Alcaraz NP Work Phone: Start: 04-45-8100DBZ DRUG SCREEN RAPID (URINE)Robi Marcelo DO Work Phone: Start: 95-36-5243Yahqk dip stick/tablet rgnt non-auto w/o micrscpTatiana Alcaraz CHAINSTITCH SEWING MACHINE OPERATOR Work Phone: Start: 16-92-0993LLHMDECVQ VAGINITIS (HTRX)Tatiana Alcaraz NP Work Phone: Start: 98-19-1386Jpmjm dip stick/tablet rgnt non-auto w/o micrscpTatiana Alcaraz CHAINSTITCH SEWING MACHINE OPERATOR Work Phone: Start: 26-12-3780IVR,APTIMA HPV,AGE GDLNTatiana Alcaraz CHAINSTITCH SEWING MACHINE OPERATOR Work Phone: Start: 34-41-6733XUS TESTCorey Marcelo DO Work Phone: Start: 05-08-2025 End: 93-63-7322Kjutu dip stick/tablet rgnt non-auto w/o micrscpCorey Marcelo DO Work Phone: Start: 37-32-6563YGD CBC WITH AUTO DIFFCorey Marcelo DO Work Phone: Start: 98-57-3454Uuycqcsc screenCorey Marcelo DO Work Phone: Start: 40-30-7118TSH TYPE AND SCREENCorey Marcelo DO Work Phone: Start: 45-66-9897Ryvof streptococcus group a amplified probe tqBrandon D The [address] DO Work Phone: Start: 03-72-7643Nhmpxgzkeql observation [Identifier] in Cervix by Cyto stainBrandon LumenzutThe Training Room (TTR) DO Work Phone: Start: 55-16-3001Pd breast uni real time with image limitedMarianna Abbasi APRN [employer] Work Phone: Start: 87-39-0620Ducpx count complete automated Tatiana Lewis MD Work Phone: Start: 55-69-5026GPPFIBZVLGQTB SCRN, UR, REFLEX QUANT Tatiana Lewis MD Work Phone: Start: 12-58-6002Swbe tst prsmv instrmnt chem analyzers pr dateTatiana Lewis MD Work Phone: Start: 76-53-3799Jeoqqgfk treponema pallidumTatiana Lewis MD Work Phone: Start: 71-88-7564Ournz count complete automated Tatiana Lewis MD Work Phone: Start: 78-31-3153REQK AND SCREENTatiana Lewis MD Work Phone: Start: 51-46-5914Mll prim src wet mount nfct Taina Alonso MD Work Phone: Start: 31-77-2088Aejcsqqm treponema pallidumCallie Cayden Work Phone: Start: 77-24-2597Qgkiflu post glucose doseCallie Cayden Work Phone: Start: 61-72-4852Bmgyd count complete automatedCallie Cayden Work Phone: Start: 56-49-1004Yitsz of blood/uric acidCallie Cayden Work Phone: Start: 31-14-6230Qroiisbdrdzal metabolic panelCallie Cayden Work Phone: Start: 40-87-9338ZXVQKZJBQE FILTRATION RATECallie Cayden Work Phone: Start: 74-51-7959Euhlylmeoo A1c/Hemoglobin.total in BloodCallie Cayden Work Phone: Start: 88-26-4128Omjncmsdp c antibodyCallie Cayden Work Phone: Start: 81-38-4649Zlapcoq dehydrogenase ldhCallie Cayden Work Phone: Start: 28-74-6040EPOFUPUV PANEL WITH HIVCallie Cayden Work Phone: Start: 08-21-3845TPWWVDGU T&SCallie Cayden Work Phone: Start: 56-04-6525UCDCFDG / CREATININE RATIO, URINE Nicole Cayden Work Phone: Plan of Treatment DateCare ActivityDetailAuthorStart: 39-32-3888Askmgkmalkqsfj of diphtheria + tetanus + acellular pertussis vaccineDTAP/TDAP/TD VACCINE (2 - Td or Tdap) [facility] [employer] SystemStart: 45-33-6381Ulgrmfqriw + pertussis + tetanus vaccine (product)DTAP/TDAP/TD VACCINE (2 - Td or Tdap)[facility] [employer] [facility] Start: 08-25-2025 End: 37-94-6381Agqkdmj encounter omqwfpagc76/24/2025 9:20 AM EST Routine [facility] [address] [place], [id number] Aliya Ochoa PA [address] [place] [address] [facility]ANEL[facility] [place] OBGYNStart: 08-04-2025 End: 27-16-6817Fnjfjot encounter procedureNOMS De [place] OBGYNComment on above: ArrivedStart: 07-07-2025 End: 03-24-6907MKT panel - Blood by Automated countCBC Lab Routine Diabetes mellitus screening Expected: 07/07/2025 (Approximate), Expires: 07/07/2026[facility] Work Phone: comment on above:Expected: 07/07/2025 (Approximate), Expires: 07/07/2026Start: 07-07-2025 End: 78-20-2765Ebmvnvauwwb of glucose 1 hour after glucose challenge for glucose tolerance testGlucose tolerance, 1 hour Lab Routine Diabetes mellitus screening Expected: 07/07/2025 (Approximate), Expires: 07/07/2026[facility] HealthcareComment on above:Expected: 07/07/2025 (Approximate), Expires: 07/07/2026Start: 07-07-2025 End: 44-45-7484Vwvsrvk encounter procedureNOMS [place] OBGYNComment on above: ArrivedStart: 07-07-2025 End: 10-33-7787Gurnjrbqrlrq / ancillary services sazbvfikzm94/06/2025 1:00 PM EDT Ancillary Procedure YANELI HATHAWAY [address] [place] [id number] [phone] Brain OBGYNStart: 94-83-1395Cljgklvbk for malignant neoplasm of cervixPAP [facility] SystemStart: 06-09-2025 End: 06-13-4633Xmfup fetoprotein, maternalAlpha fetoprotein, maternal Lab Routine 17 weeks gestation of ([facility]) Second trimester ([facility]) Expected: 06/09/2025 (Approximate), Expires: 07/09/2025[facility] Comment on above:Expected: 06/09/2025 (Approximate), Expires: 07/09/2025Start: 06-09-2025 End: 31-83-3466RX for pregnancyUS OB 14+ weeks anatomy scan Imaging Routine Screening, , for anatomic survey ([facility]) Expected: 06/09/2025, Expires: 09/08/2025[facility] HealthcareComment on above:Expected: 06/09/2025, Expires: 09/08/2025Start: 06-09-2025 End: 09-14-1911Lezkabb encounter ihcxnllpq27/08/2025 10:40 AM EDT Routine [facility] [address] [place] [phone] Robi Robertson DO [address] [place] [address] [facility] Brain OBGYNStart: 05-08-2025 End: 51-53-3800TJS/RhABO/Rh Lab Routine Missed menses , unspecified gestational age ([facility]) Expected: 05/08/2025 (Approximate), Expires: 05/08/2026[facility] HealthcareComment on above:Expected: 05/08/2025 (Approximate), Expires: 05/08/2026Start: 05-08-2025 End: 45-43-2363Mfexy type and Indirect antibody screen panel - BloodType and screen Lab Routine Missed menses , unspecified gestational age ([facility]) Expected: 05/08/2025 (Approximate), Expires: 05/08/2026[facility] Comment on above:Expected: 05/08/2025 (Approximate), Expires: 05/08/2026Start: 05-08-2025 End: 16-36-9773Kcgir of abuse panel - Urine by Screen methodRapid drug screen, urine Lab Routine , unspecified gestational age ([facility]) Encounter for supervision of normal first in first trimester ([facility]) Expected: 05/08/2025 (Approximate), Expires: 05/08/2026[facility] HealthcareComment on above: Expected: 05/08/2025 (Approximate), Expires: 05/08/2026Start: 05-07-2025 End: 77-27-1701MR Pelvis transvaginalUS OB transvaginal Imaging Routine Missed menses Positive urine test ([facility]) Expected: 05/07/2025, Expires: 08/07/2025[facility] Work Phone: comment on above:Expected: 05/07/2025, Expires: 08/07/2025Start: 01-30-2025 End: 19-32-2834Sesudur encounter sjggurmnm79/01/2025 10:50 AM EDT Office Visit [facility] [address] [place] [phone] Robi Robertson, DO [address] [place] [address] [facility] BCP OBStart: 90-50-2205Ewpqa cultureFlower Hospitaltart: 92-35-4696Ogygrasx identified in Urine by Culture Urine CultureFlower Hospitaltart: 06-20-2023 End: 78-30-9190Rpdcupm encounter jnermiwco95/19/2023 Office Visit Obstetrics and Gynecology Belle Ochoa APRN [employer] [address] [place] [address] [facility]GYNECOLOGYStart: 06-15-2023 ANNUAL WELLNESS VISITANNUAL WELLNESS VISITAngel Medical Centertart: 82-97-3039WUHKKGBZR SCREENINGCHLAMYDIA SCREENINGAngel Medical Centertart: 84-00-7282Imwdznvzh vaccination givenINFLUENZA VACCINE (Season Ended)[facility] SystemStart: 51-80-0873Vjbuxlcfr vaccination givenINFLUENZA VACCINE (Season Ended)[facility] SystemStart: 05-25-2022 End: 67-86-6122Mkyviai encounter /24/2022 Office Visit Obstetrics and Gynecology Belle Ochoa APRN [employer] [address] [place] [address] [facility]GYNECOLOGYStart: 02-24-20[address] SCREENINGA[address] SystemStart: 12-21-20[address]CHL[address]YDIA SCREENINGA[address] [place] SystemStart: 11-26-2021 CHLAMYD[address]CHLAMYDIA SCREENINGA[address] [place] SystemStart: 10-18-2021 End: 45-57-7243Uckfnim encounter bsvwpyggx84/17/2022 Office Visit Dentistry Alka Adams DDS [address] [place] [address] [facility] CenterStart: 41-80-8410Zzbvjczja for malignant neoplasm of cervixPAP SMEARAurora [facility] [place] SystemStart: 07-22-2021 End: 63-65-5324Sbbfgqh encounter bakgqogvr37/21/2021 Office Visit Dentistry Alka Adams DDS [address] [place] [address] [facility] CenterStart: 88-23-1113Mheojbmrt vaccination givenAurora St[facility] [place] SystemStart: 05-12-2021 End: 06-58-6452hiovslcjic45/11/2021 Visit Obstetrics and Gynecology Nicole Rodarte DO [address] [facility] [address] [place] [address] [phone] [facility]GYNECOLOGYStart: 03-10-2021 End: 94-57-2298Urkzsjk encounter arrdkjsxi74/09/2021 Routine Obstetrics and Gynecology Nicole Rodarte DO [address] [facility] [address] [place] [address] [phone] [facility]GYNECOLOGYStart: 03-04-2021 End: 52-39-3020Nnznhwq encounter /03/2021 Routine Obstetrics and Gynecology Nicole Rodarte DO [address] [facility] [address] [place] [address] [phone] [facility]GYNECOLOGYStart: 02-24-2021 End: 68-02-0855Ytldnpk encounter oizxloepc89/26/2021 Routine Obstetrics and Gynecology Nicole Rodarte DO [address] [facility] [address] [place] [address] [phone] [facility]GYNECOLOGYStart: 02-11-2021 End: 09-81-9959Stcldva encounter vqzujkwey38/13/2021 Routine Obstetrics and Gynecology Nicole Rodarte DO [address] [facility] [address] [place] [address] [facility]GYNECOLOGYStart: 01-11-2021 End: 24-50-4206Lysydlg Jfpdbkas01/12/2021 Routine Obstetrics and Gynecology Nicole Rodarte DO [address] [facility] [address] [place] [address] [phone] [facility]GYNECOLOGYStart: 12-24-2020 End: 09-42-5931Oycbvhy Dhmhplgo01/25/2021 Routine Obstetrics and Gynecology Nicole Rodarte DO [address] [facility] [address] [place] [address] [phone] [facility]GYNECOLOGYStart: 06-02-2020 Influenza vaccination givenINFLUENZA VACCINE (#1)[facility]ertart: 27-79-8175SDNZCE WELLNESS VISITANNUAL WELLNESS VISITCHI [facility] Start: 65-10-4384BLDQEIJFA SCREENINGCHLAMYDIA SCREENINGCHI St. [facility] Start: 08-19-3259Wrswx depression screening assessmentDEPRESSION SCREENING [facility] Centertart: 04-60-5167Dywfxbqrpm screening using PHQ-9 (Patient Health Questionnaire 9) scoreDEPRESSION SCREENINGAngel Medical Centertart: 52-79-2877Mxobmmmzou + pertussis + tetanus vaccine (product) DTAP/TDAP/TD VACCINE (1 - Tdap)[facility] Centertart: 27-18-8364Nipsh papilloma virus vaccination givenHPV VACCINES (GARDASIL) (1 - 2-dose series) [facility] Centertart: 75-11-7029Nxhoybvziaf for human papillomavirus HPV VACCINES (GARDASIL) (1 - 2-dose series)[facility] Centertart: 35-74-5499TKWTP-19 VACCINE (1)COVID-19 VACCINE (1)[facility] Start: 23-01-2852QITCE-19 VACCINE (#1)COVID-19 VACCINE (#1)[facility] HospitalBacteria identified in Urine by CultureUrine culture Microbiology Routine Missed menses Ordered: 05/08/2025[facility] HealthcareComment on above:Ordered: 05/08/2025BC W Auto Differential panel - BloodCBC and differential Lab Routine Missed menses , unspecified gestational age ([facility]) Ordered: 05/08/2025[facility] HealthcareComment on above:Ordered: 05/08/2025HLAMYDIA TRACHOMATIS (GENITO/STI)CHLAMYDIA TRACHOMATIS (GENITO/STI) Lab Routine Exposure to STD Ordered: 06/09/2025[facility] HealthcareComment on above:Ordered: 06/09/2025 End: 14-26-5440Strfpqtpr trachomatis+Neisseria gonorrhoeae rRNA [Presence] in Cervix by ProbeGC &Chlamydia Microbiology Routine Late care affecting in second trimester 1Occurrences starting 11/26/2020 until 11/26/[address] [facility] HospitalComment on above:1 Occurrences starting 11/26/2020 until 11/26/2020hlamydia trachomatis+Neisseria gonorrhoeae rRNA [Presence] in Cervix by [facility] End: 48-11-8911Ptwysjwtv trachomatis+Neisseria gonorrhoeae rRNA [Presence] in Cervix by ProbeGC & CHLAMYDIA AMPLIFIED PROBE Microbiology Routine 27 weeks gestation of Chlamydia trachomatis infection in mother during second trimester of 1 Occurrences starting 12/21/2020 until 12/21/2020[facility] SystemComment on above:1 Occurrences starting 12/21/2020 until 12/21/2020 End: 28-11-7057Zhnvndadm trachomatis+Neisseria gonorrhoeae rRNA [Presence] in Cervix by ProbeGC & Chlamydia Amplified Probe Microbiology Routine 36 weeks gestation of Chlamydia trachomatis infection in mother during second trimester of 1 Occurrences starting 02/24/2021 until 02/24/2021[facility] SystemComment on above:1 Occurrences starting 02/24/2021 until 02/24/2021 End: 83-89-9552FLQHJ-19 (2019 NOVEL CORONAVIRUS)[facility] Work Phone: Comment on above:One Time for 1 Occurrences starting 06/08/2021 until 06/08/2021ytology Cervical or vaginal smear or scraping study Pap Smear Pathology and Cytology Routine Well woman exam with routine gynecological exam Ordered: 06/09/2025[facility]'s HospitalComment on above:Ordered: 06/09/2025 End: 29-24-9157Icaa Screen Urine Extended PanelDrug Screen Urine Extended Panel Lab Routine Late care affecting in second trimester 1 Occurrences starting 11/26/2020 until 11/26/2020[facility] SystemComment on above:1 Occurrences starting 11/26/2020 until 11/26/2020rug Screen Urine Extended PanelDrug Screen Urine Extended Panel Lab Routine Late care affecting in second trimester 11/26/2020 3:23 PM [facility] nonstress testFetal nonstress test OB Routine Daily 0500 until discontinued starting 03/07/2021[facility] HospitalComment on above:Daily 0500 until discontinued starting 03/07/2021 End: 13-57-5452Hatrfss Group B Strep ScreenGenital Group B Strep Screen Microbiology Routine 36 weeks gestation of 1 Occurrences starting 02/24/2021 until 02/24/2021[facility] HospitalComment on above:1 Occurrences starting 02/24/2021 until 02/24/2021Genital Group B Strep Screen Genital Group B Strep Screen Microbiology Routine 36 weeks gestation of 02/24/2021 10:07 PM [facility] CenterHemoglobin A1c/Hemoglobin.total in BloodHemoglobin A1c Lab Routine Missed menses , unspecified gestational age ([facility]) Ordered: 05/08/2025[facility] HealthcareComment on above:Ordered: 05/08/2025Hepatitis B virus surface Ag [Presence] in Serum or Plasma by ImmunoassayHepatitis B surface antigen Lab Routine Missed menses , unspecified gestational age ([facility]) Ordered: 05/08/2025[facility] HealthcareComment on above:Ordered: 05/08/2025Hepatitis C virus Ab [Presence] in Serum or Plasma by ImmunoassayHepatitis C antibody Lab Routine Missed menses , unspecified gestational age ([facility]) Ordered: 05/08/2025[facility] HealthcareComment on above:Ordered: 05/08/2025HIV-1/HIV-2 antigen/antibody combination immunoassayHIV-1 and HIV-2 antibodies Lab Routine Missed menses , unspecified gestational age ([facility]) Ordered: 05/08/2025[facility] HealthcareComment on above:Ordered: 05/08/2025Neisseria gonorrhoeae DNA [Presence] in Unspecified specimen by MARIZA with probe detectionNeisseria gonorrhea DNA probe, direct Lab Routine Exposure to STD Ordered: 06/09/2025[facility] HealthcareComment on above:Ordered: 06/09/2025 End: 36-66-2711KPKA Nitrazine TestPOCT Nitrazine Test OB Routine One Time for 1 Occurrences starting 03/06/2021 until 03/06/2021[facility] SystemComment on above:One Time for 1 Occurrences starting 03/06/2021 until 03/06/2021 PANEL WITH HIVPrenatal Panel with HIV Lab Routine Late care affecting in second trimester 11/26/2020 3:26 PM [facility] SystemReagin Ab [Presence] in Serum by RPRRPR Lab Routine Missed menses , unspecified gestational age ([facility]) Ordered: 05/08/2025[facility] HealthcareComment on above:Ordered: 05/08/2025Rubella antibody, IgGRubella antibody, IgG Lab Routine Missed menses , unspecified gestational age ([facility]) Ordered: 05/08/2025[facility] HealthcareComment on above:Ordered: 05/08/2025 End: 79-51-8289QXSR-COV-2, [employer] Work Phone: comment on above:One Time for 1 Occurrences starting 02/04/2022 until 02/04/2022 End: 56-09-1099HTOZ-COV-2, [employer] Work Phone: comment on above:One Time for 1 Occurrences starting 02/06/2022 until 02/06/2022URESWAB(R) ADVANCED VAGINITIS PLUS, TMASURESWAB(R) ADVANCED VAGINITIS PLUS, TMA Pathology and Cytology Routine Vaginal discharge Ordered: 06/09/2025[facility] PPT [employer] Work Phone: comment on above:Ordered: 06/09/2025 End: 76-54-2068Bscbn culture and sensitivityUrine culture and sensitivity Microbiology Routine Late care affecting in secondtrimester 1 Occurrences starting 11/26/2020 until 11/26/2020[facility] Comment on above:1 Occurrences starting 11/26/2020 until 11/26/2020Urine culture and sensitivityUrine culture and sensitivity Microbiology Routine Late care affecting in secondtrimester 11/26/2020 3:23 PM [facility] SystemUS Pelvis transvaginalUS OB transvaginal Imaging Routine Missed menses Positive urine test ([facility]) 2:54 PM [facility] Immunizations Immunization DateImmunizationNotesCare UejrlgteOjafjlun88-28-1663tgopxmm toxoid, reduced diphtheria toxoid, and acellular pertussis vaccine, adsorbedStacy Alonso MD Work Phone: [phone]11-25-2008influenza virus vaccine, unspecified formulationTatiana Lewis MD Work Phone: [phone] [phone] Hernandez StreetNEGATED: Highlighted row has not occurred!13-87-0537izpymek, mumps and rubella virus vaccineTatiana Lewis MD Work Phone: [phone] [place], [place] [address]Comment on above:Deferred: - immune Payers DatePayer CategoryPayerPolicy [id number]-pay2025Medicaid (Managed Care)[employer] Member Subscriber Plan / Payer (Effective 2024-Present) Name: Roberta Belleville Relation to Subscriber: Self Name: Eva Granados Payer ID: Not on file Group ID: Not on file Type: Not on file Address: [address] [id number] [id number] [id number] 2021MedicaidBUCKEYEMedicaidBUCKEYE COMM[facility]ITY [facility]ALTH [facility] [id number] 2020-Present [phone] [id number] [place] [address] Medicaid [id number] 2.16.840.1.576566.3.57[id number] 2.16.840.1.287230.3.57[id number] 2.16.840.1.220313.3.57[id number] 2.16.840.1.895637.3.57[id number] 2.16.840.1.532728.3.57[id number] 2.16.840.1.717614.3.57[id number] 2.16.840.1.074934.3.57[id number] 2.16.840.1.503338.3.57[id number] 2.16.840.1.446430.3.57[id number] 2.16.840.1.691006.3.57[id number] 2.16.840.1.870064.3.579.2.1259 Social History DateTypeDetailFacilityStart: 08-14-2020 End: 30-62-4934Nxfalfa smoking status NHISFormer smokerAur[facility] St. [facility] Start: 08-14-2020 End: 12-39-0185Morpxog use and exposureNever usedAurora St. [facility] SystemStart: 17-00-0297Cpb Assigned At BirthNot on [facility] SystemStart: 01-27-2023 End: 14-13-5784Dfytkmec to SARS-CoV-2 (event)Not sureA[facility] End: 83-94-7950Yzeafrc of tobacco useCurrent smokerAurora St. [facility] Start: 11-26-2020 End: 97-59-5669Sfrrroz intakeEx-drinker (finding)[facility] SystemStart: 72-15-5586MnunmnfnYxwevne HealthCare SystemExposure to SARS-CoV-2 (event)Unable to assessA[facility]ora St[facility] SystemStart: 42-07-4890Oib Assigned At BirthFemale [facility] Work Phone: Start: 09-21-2021 End: 77-80-3167Ewqrome smoking status NHISCurrent every day smokerAurora St. [facility] Work Phone: History of tobacco useTobacco Use Types Packs/Day Years Used Date Smoking Tobacco: Every Day E-Cig/Vaping Smokeless Tobacco: Never [facility] SystemStart: 88-65-1393Febdodz intakeCurrent drinker of alcohol (finding)[facility] SystemStart: 17-82-2165Kyovpkv Commentocc [facility] HospitalTobacco smoking status NHISTobacco smoking consumption unknownSSM Health Cardinal Glennon Children's HospitalGender identityNot on [facility] [place] HealthStart: 01-17-2025 SexPatient sex unknown (finding)[facility] Hospitaltart: 62-10-6996NusSduzhcLCUI Healthcare Clinical Notes 02-03-2021 to 08-04-2025 Note Date & JfczVevqOslkywgb62-67-8767 History of Present illness Narrative* Ariella Wells, [...] nursing note reviewed. Exam conducted with a foundry laborer coreroom present. Vitals: There is no height or weight on file to calculate BMI. BP: 130/70 Patient's last menstrual period was 04/14/2025. Assessment/Plan ICD-10-CM 1. Second trimester ([facility]) Z34.92 2. 25 weeks gestation of ([facility]) Z3A.25 Patient presents today for a routine obstetrics appointment. Patient is currently 25w1d with a Estimated Date of Delivery: 11/16/25. Patient given orders to have 1 hour gtt and CBC. Patient to return to clinic in 3 weeks. Will get growth US around 30 weeks gestation. Documented by Ariella Wells LPN on behalf of: Robi Robertson DO documented in this encounterSSM Health Cardinal Glennon Children's HospitalVpkovhrxdt22-18-5695 History of Present illness Narrative* Ariella Wells [...] nursing note reviewed. Exam conducted with a foundry laborer coreroom present. Vitals: There is no height or weight on file to calculate BMI. BP: 118/68 Patient's last menstrual period was 04/14/2025. ASSESSMENT & PLAN ICD-10-CM 1. 17 weeks gestation of ([facility]) Z3A.17 POCT urinalysis dipstick manually resulted Alpha fetoprotein, maternal Alpha fetoprotein, maternal 2. Second trimester ([facility]) Z34.92 POCT urinalysis dipstick manually resulted Alpha fetoprotein, maternal Alpha fetoprotein, maternal 3. Screening, , for anatomic survey ([facility]) Z36.89 US OB 14+ weeks anatomy [...] obtained without difficulty and patient was given [facility] order to have obtained. Orders Placed This Encounter Procedures US OB 14+ weeks anatomy scan CHLAMYDIA TRACHOMATIS (GENITO/STI) Neisseria gonorrhea DNA probe, direct Alpha fetoprotein, maternal POCT urinalysis dipstick manually resulted Follow Up: Patient is to return to our office in 4 weeks for routine OB appointment Documented by Ariella Wells LPN on behalf of: Tatiana Alcaraz NP documented in this encounterSSM Health Cardinal Glennon Children's [id number] History of Present illness Narrative* Kimmie Pitts, MICA PATCHER - 05/08/2025 1:00 PM EDT Reason for [...] urinalysis dipstick manually resulted Positive urine test ([facility]) - US OB transvaginal; Future , unspecified gestational age ([facility]) - Type and screen; Future - ABO/Rh; Future - CBC and differential - Hemoglobin A1c - RPR - Rubella antibody, IgG - Hepatitis B surface antigen - Hepatitis C antibody - HIV-1 and HIV-2 antibodies - Rapid drug screen, urine; Future Encounter for supervision of normal first in first trimester ([facility]) - Rapid drug screen, urine; Future [...] or undercooked meat, and stay away from [facility]. Patient has also been advised to not change litter boxes and eat 6 small meals a day. Patient has been consulted regarding the do's and don'ts ofpregnancy. Patient was given labs and all questions and concerns were answered. Patient given [place] to have obtained with Initial labs. Patient [...] Kimmie Pitts LPN documented in this encounterSSM Health Cardinal Glennon Children's [id number] Emergency department Note * Ava Lassiter RN - 02/07/2023 4:32 AM EDT Discharge instructions given to pt. Pt verbalized understanding. Skin p/w/d, RR easy and unlabored.ID band removed from arm, pt ambulates to lobby with ease. [facility] Emergency department Note* Ava Lassiter RN - [...] No distress during triage. documented in this [facility] Emergency department Note* Ava Lassiter RN - [...] unlabored, airway patent, skin pwd, NAD noted. [facility]05-08[facility]23 Emergency department Triage note* Ruthie Higgins RN - 02/06/2023 11:12 PM EDT Pt arrives to the ED for throat tightness. Onset over last 1 1/2 hour. Denies any throat pain, justtightness. Denies any known for cause. Pt A & O. Resp reg. Speech is clear. No distress during triage. [employer]01-14-2022 NoteCLINICAL HISTORY: Patient is a 21-year-old woman [...] for the patient's pain. Normal examination. [facility]06-23-2021 Miscellaneous Notes* Nursing - Maile Moses RN [...] Lanolin * D/C Planning - Rosina Vergara, Md Senior Research Scientist - 03/22/2021 3:52 PM EDT Social Service OB Consult Eva Granados 2000 OB Social Work Consult Reason for Referral: CHANDA has hx of anx Interview Participants: [facility] Father of Baby: Yes Family Support: Yes Marital Status: Single Patient Information Employment: yes Student: no Household Size: 3 Other Children in home: 0 Quality Assurance Monitor Chassis / Family Physician: Dr Porras Problem List: Psychiatric History Community Agencies Involved: [facility] Assessment:: CHANDA has hx of anx. Reports that she gets nervous but is okay. MOB reports she has hx of dep but hasn't had it [id number]. PPD handout provided with verbal edu on [...] not included. Rosina Vergara Social Worker IP Quarantine Officer D/C Planning Signed Note Time: 03/22/21 150 [...] EDT Vaginal Delivery Note Eva Roberta 2000 [id number] 20 y.o. at 40w0d gestation Delivering Laborer Filter Plant: Tatiana Lewis Primary Laborer Filter Plant: Tatiana Lewis Pre-Delivery Diagnosis: IUP at 40 [...] monitors applied. SVE /-3. documented in [facility] Hospital course Narrative* Nicole Rodarte DO - 03/24/2021 8:50 AM EDT Obstetrical Discharge Summary Eva Granados 2000 [id number] 03/21/2021 Delivering OB Clinician: Tatiana Lewis MD [...] home Nicole Rodarte 03/24/20[address] History of Present illness Narrative* Nicole Rodarte [...] well 2. Routine care documented in this [facility] History and physical note* Tatiana Lewis MD [...] for : 37w US: vertex, EFW 3028g ([id number]) 42%ile, SUGAR 15.0cm, post gr3 placenta Late [...] +accelerations, intermittent early, late, and variable decelerations [place]: q 1-3 minutes VE: Complete/+2 station with artificial rupture performed for clear fluid * Nicole Rodarte DO - 03/19/2021 11:38 AM EDT Eva Roberta 2000 [id number] 20 y.o. at 40w1d with EDC of Estimated Date of Delivery: 03/22/21 who is being admitted for induction of labor. Her current obstetrical history is remarkable for: 37w US: vertex, EFW 3028g (4ec94fc) 42%ile, SUGAR 15.0cm, post gr3 placenta Late [...] cephalic FHTs: To be assessed on arrival [place]: To be assessed on arrival Cervix: Last in office Dilation: 1cm Effacement: 50% Station: -3 Damon score: 3 Labs GBS neg Rh pos Impression: 20 y.o. at 40w1d Induction of labor Late PNC at 23w Chlamydia at [facility] but 36w recheck neg GBS neg Rh pos Plan: 1. ATSO [place] 2. CEFM + [place] 3. Admission labs 4. Suspect some component of mild blood pressure elevations related to anxiety as happened at [facility] and when seeing a different provider [...] 2102 with monitors applied. documented in [facility] Hospital Discharge instructions* Instructions* Nadege Bruce RN [...] not have a private physician call the [facility] right away at or . Contractions The [...] s instructions. Umberto Viera is located at [facility] on the [facility]. Warning Signals Possible Complications in Call [...] ambulatory with SO. * Nursing - Tamiko Melo RN - 03/02/2021 2:[address] [...] applied, pt states understanding. documented in this [facility]CH[facility] Miscellaneous Notes* Sae - Jorge Moreira RN [...] and once reactive NST, RBO. * Jorge Wanger RN - 02/03/2021 9:47 PM EDT Patient arrives via wheelchair with c/o lower abd pain that wraps around side that has worsened since 1999 rating 7/10, movement present, denies vaginal LOF/bleeding, to triage room 2100 with monitors applied, education provided. documented in this [facility] Hospital Discharge instructions* Instructions* Jorge Moreira RN [...] Hydrocortisone. Ask your doctor about taking an yfzf-ezy-binntom stool softener. Consider Experts recommend that women [...] who breastfeed lose weight faster. Making milk yuonger calories. can lower your risk of breast cancer, ovarian cancer, and osteoporosis. Decide about circumcision for boys As you make this decision, it may help to think about your personal, gnosticist, and family traditions. You get to decide if you will keep your son's penis natural or if he will be circumcised. If you decide that you would like to have your baby circumcised, talk with your doctor. You can share your concerns about pain. And you can discuss your preferences for anesthesia. Where can you learn more? Go to https://www.[employer].net/patientEd Enter X711 in the search box to learn more about Weeks 32 to 34 of Your : Care Instructions. Current as of: July 09, 2020 Content Version: 12.8 [facility]. Care instructions adapted under license by your healthcare professional. If you have questions about a medical condition or this instruction, always ask your healthcare professional. [facility] disclaims any warranty or liability for your use of this information. documented in this encounterThe [facility] SystemEvaluation note* Diagnosis 36 weeks gestation of state, incidental Chlamydia trachomatis infection in mother during second trimester of documented in this encounter [facility] SystemEvaluation note* Diagnosis (spontaneous vaginal delivery)- Primary Normal delivery Encounter for induction of labor Normal labor Chlamydia trachomatis infection in mother during second trimester of Late care affecting in second trimester documented in this encounter [facility] System[facility] note* Diagnosis Breast pain, left Mastodynia documented in this encounter [facility] SystemEvaluation note* Diagnosis URI with cough and congestion documented in this encounter [facility] SystemEvaluation note* Diagnosis Sore throat- Primary Acute pharyngitis documented in this encounter [facility] SystemEvaluation noteNo assessment information available [facility] Work Phone: Evaluation note* Diagnosis Missed menses Positive urine test ([facility]) , unspecified gestational age ([facility]) Encounter for supervision of normal first in first trimester ([facility]) Nonintractable headache, unspecified chronicity pattern, unspecified headache type documented in this encounter [facility] HealthcareEvaluation [facility]* Diagnosis 17 weeks gestation of ([facility]) Second trimester ([facility]) state, incidental Screening, , for anatomic survey ([facility]) Encounter for anatomic survey Exposure to STD Vaginal discharge Leukorrhea, not specified as infective Well woman exam with routine gynecological exam Routine gynecological examination documented [facility] this encounter [facility]* Diagnosis 21 weeks gestation of ([facility]) Second trimester ([facility]) state, incidental Diabetes mellitus screening Screening for diabetes mellitus documented in this encounter [facility]* Diagnosis Second trimester ([facility]) state, incidental 25 weeks gestation of ([facility]) documented in this encounter [facility] HealthcareHistory of Present illness Narrative* Tatiana Alcaraz, CHAINSTITCH SEWING MACHINE OPERATOR - 07/07/2025 2:00 PM EDT Reason for [...] nursing note reviewed. Exam conducted with a foundry laborer coreroom present. Vitals: There is no height or weight on file to calculate BMI. BP: 120/80 Patient's last menstrual period was 04/14/2025. ASSESSMENT & PLAN ICD-10-CM 1. 21 weeks gestation of ([facility]) Z3A.21 POCT urinalysis dipstick manually resulted 2. Second trimester ([facility]) Z34.92 POCT urinalysis dipstick manually resulted 3. [...] of: Tatiana Alcaraz NP documented in this encounterProgress West Hospitalital Discharge instructions* Instructions* Tamiko Melo RN [...] Call according to your Doctor s instructions. [facility] is located at [facility] the [facility]. Warning Signals Possible Complications in Call [...] encounterBaylor Scott [facility] Stationspital Discharge instructions* Instructions* Maile Moses RN - [...] eating high-fiber foods. Ask your doctor about ejlh-oyh-inlukpn stool softeners. Cleanse yourself with a gentle [...] few days after delivery. Plan for child advocate if you have other children. Stay flexible [...] Where can you learn more? Go to https://www.[employer].net/patientEd Enter A461 in the search box to learn more about After Your Delivery (the Period): CareInstructions. Current as of: July 09, 2020 Content Version: 12.9 8350-9961 [facility]. Care instructions adapted under license by your healthcare professional. If you have questions about a medical condition or this instruction, always ask your healthcare professional. [facility] disclaims any warranty or liability for your use of this information. * Attachments The following attachments cannot be sent through Care Everywhere. * (Polish Faroese) documented in this encounterGenesis [facility] SystemHospital Discharge instructions* Attachments The following attachments cannot be sent through Care Everywhere. * Sore Throat (Polish Faroese) documented in this encounterA[facility] SystemReason for referral (narrative)* Procedure Authorization (Routine) - ClosedSpecialtyDiagnoses / ProceduresReferred By ContactReferred To Contact Diagnoses Breast pain, left Procedures US Breast Left Limited Marianna Abbasi APRN [employer] [address] [place] [address] [employer] [address] [phone] Referral IDStatusReasonStart DateExpiration DateVisits RequestedVisits [id number]/21/20211/21/2023[address] [facility] for visit Narrative* Procedure Authorization (Routine) - ClosedSpecialtyDiagnoses / ProceduresReferred By ContactReferred To Contact Diagnoses Breast pain, left Procedures US Breast Left Limited Marianna Abbasi APRN [employer] [address] [place] [address] [employer] [address] [phone] Referral IDStatusReasonStart DateExpiration DateVisits RequestedVisits [id number]/21/20211/21/202311 [facility] [employer] [facility] Reason for Referral StatusReasonSpecialtyDiagnoses / ProceduresReferred By ContactReferred To ContactOpenDental Finger Grip Machine Operator / Dentistry Diagnoses Pain, dental Jaw swelling Aliya Cao, DO [address] [place] [address] [facility] [address] [place] [address] StatusReasonSpecialtyDiagnoses / ProceduresReferred By ContactReferred To ContactOpenFamily Medicine Diagnoses Pain, dental Jaw swelling Aliya Cao, DO [address] [place] [address] [facility] [address] [facility] [address] [place] [address] [place] [address] Discharge Instructions * Instructions* Aliya Cao DO - 08/14/2020 No driving or operating heavy machinery while taking norco - no extra tylenol * Attachments The following attachments cannot be sent through Care Everywhere. * Tooth and Gum Pain (Polish Faroese) documented in this encounter Assessments Diagnosis Pain, [...] (Given - Provider: Maile Moses RN) TdaP sqmiklw-gswjfpmfmv-kuzupeodo pertussis (BOOSTRIX) injection 0.5 mL 0.5 mL, [...] DateEnd Date Pcp, None [address] [place] [address] PCP - Lrsrynm71/13/20 INFORMATION SOURCE (unrecogn ized section and content) DATE CREATED AUTHOR 03/13/2023 [employer] DATE CREATED AUTHOR AUTHOR'S ORGANIZ ATION 04/22/2025 [facility] DATE CREATED AUTHOR AUTHOR'S ORGANIZ ATION 08/05/2025 [facility] Goals (unrecognized section and content) Goals [...] BE BASED ON THE PRIMARY CLINICAL RECORDS. [facility] [employer] [facility]. provides no warranty or guarantee of the accuracy or completeness of information in this document.
[2025-09-09 14:24] LABS: Hematocrit 34.6 % (36.0-48.0); Hemoglobin 12.0 g/dL (12.0-16.0); Mean Corpuscular HGB Conc 34.7 g/dL (29.9-35.2); Mean Corpuscular Hemoglobin 30.8 pg (26.7-34.0); Mean Corpuscular Volume 88.9 fL (81.0-99.0); Platelet Count 174 10^3/uL (150-450); Red Blood Count 3.89 10^6/uL (4.20-5.40); White Blood Count 9.6 10^3/uL (4.0-11.0)
[2025-09-09 14:34] LABS: Magnesium 1.5 mg/dL (1.8-2.4)
[2025-09-09 14:37] LABS: Glucose Urine UA NEGATIVE (NEGATIVE)
[2025-09-09 14:40] LABS: Alanine Aminotransferase 37 U/L (14-59); Albumin Globulin Ratio 0.8; Albumin Level 2.8 g/dL (3.4-5.0); Alkaline Phosphatase 112 U/L (46-116); Anion Gap 9.9; Aspartate Amino Transferase 31 U/L (15-37); Blood Urea Nitrogen 7.0 mg/dL (7.0-18.0); Calcium 8.6 mg/dL (8.5-10.1); Carbon Dioxide 25.1 mmol/L (21.0-32.0); Chloride 101 mmol/L (98-107); Estimated GFR (African America >60 (>=60 mL/min/1.73m^2); Estimated GFR (Non-African Ame >60 (>=60 mL/min/1.73m^2); Globulin 3.7 g/dL; Glucose 95 mg/dL (74-106); Lipase 27.0 U/L (16.0-77.0); Potassium 3.0 mmol/L (3.5-5.1); Sodium 133 mmol/L (136-145); Total Protein 6.5 g/dL (6.4-8.2)
[2025-09-09 14:49] LABS: Basophils Abs Manual 0.00 10^3/uL (0.00-0.10); Basophils Percent Manual 0.0 % (0.2-2.0); Eosinophils Absolute Manual 0.00 10^3/uL (0.00-0.70); Eosinophils Percent Manual 0.0 % (0.9-7.0); Lymphocytes Absolute Manual 0.76 10^3/uL (1.20-3.80); Lymphocytes Percent Manual 8.0 % (20.5-60.0); Monocytes Absolute Manual 0.57 10^3/uL (0.30-0.80); Monocytes Percent Manual 6.0 % (1.7-12.0); Segmented Neut Absolute Manual 8.25 10^3/uL (1.4-6.5); Segmented Neutrophils % Manual 86.0 (43.0-75.0)
[2025-09-09] MEDS: MAGNESIUM OXIDE 400 MG TABLET PO (15:15)
[2025-09-09] MEDS: POTASSIUM CHLORIDE 10 MEQ ER TABLET 20 MEQ PO (15:15)
[2025-09-09 15:58] VITALS: BP 111/65; PULSE 83; O2SAT 100
== END 2025-09-09 16:17 | disposition home or self-care (01) ==
PROVIDERS: Physician Assistant; Emergency Provider Emergency Medicine; PCP Nurse Practitioner Family
DX: O99.613 Diseases of the digestive system complicating pregnancy, third trimester (principal); K52.9 Noninfective gastroenteritis and colitis, unspecified; E86.0 Dehydration; O99.283 Endocrine, nutritional and metabolic diseases complicating pregnancy, third trimester; E87.6 Hypokalemia; E83.42 Hypomagnesemia; Z3A.30 30 weeks gestation of pregnancy
CPT/HCPCS: 36415; 80053; 81003; 83690; 83735; 85007; 85027; 96361; 96374; 99284; J2405